=== PATIENT | female | born 1950 | race Caucasian/White ===

== ENCOUNTER 2018-05-24 08:51 | Emergency (ER) | payer MEDICARE, OTHER ==
[~2018-05-24] VITALS: Ht 154.9 cm; Wt 56.2 kg
[2018-05-24] MEDS ORDERED: ONDANSETRON 4 MG/2 ML (SDV) Z0FRAN IVP ONE (09:30)
[2018-05-24] MEDS ORDERED: FAMOTIDINE 20MG/2ML IV (PEPCID) IVP ONE (09:30)
[2018-05-24] MEDS ORDERED: GRAN1PAT (09:32)
[2018-05-24] MEDS ORDERED: MORP15TA (09:32)
[2018-05-24] MEDS ORDERED: POTA10TA14 (09:32)
[2018-05-24] MEDS ORDERED: NALO25TA (09:32)
[2018-05-24] MEDS ORDERED: POTA500T (09:32)
[2018-05-24] MEDS ORDERED: AMLO5TAB9 (09:32)
[2018-05-24] MEDS ORDERED: PANT40TA3 (09:32)
[2018-05-24] MEDS ORDERED: GBPN600T (09:32)
[2018-05-24] MEDS ORDERED: MORP60TA52 (09:32)
[2018-05-24] MEDS ORDERED: ROSUVASTATIN (09:32)
[2018-05-24] MEDS ORDERED: LOSA100T57 (09:32)
[2018-05-24] MEDS ORDERED: ACYC400T (09:32)
[2018-05-24] MEDS ORDERED: morphine PF (DURAMORPH) 10 MG/10 ML AMP IV ONE (09:45)
[2018-05-24] MEDS: NS IV 1000 ML 1,000 ML IV SCH ×2 (09:50→10:38)
[2018-05-24] MEDS ORDERED: morphine INJ 10 MG/ML 1ML (SYR OR VIAL) ONE (09:54)
[2018-05-24] MEDS ORDERED: morphine INJ 10 MG/ML 1ML (SYR OR VIAL) IVP STA ×2 (09:58→11:11)
[2018-05-24 10:34] LABS: EOSINOPHILS % (AUTO) 3 % (0-10); HEMATOCRIT 38 % (35-52); HEMOGLOBIN 12.8 G/DL (11.5-16.0); LYMPHOCYTES % (AUTO) 11 % (12-44); MEAN CORPUSCULAR HEMOGLOBIN 35 PG (25-34); MEAN CORPUSCULAR HGB CONC 34 G/DL (32-36); MEAN CORPUSCULAR VOLUME 103 FL (80-99); MEAN PLATELET VOLUME 10.1 FL (7.4-10.4); MONOCYTES % (AUTO) 10 % (0-12); NEUTROPHILS % (AUTO) 75 % (42-75); PLATELET COUNT 111 10^3/uL (130-400); WHITE BLOOD COUNT 5.1 10^3/uL (4.3-11.0)
[2018-05-24 10:35] LABS: BASOPHILS % (AUTO) 0 % (0-10); EOSINOPHILS # (AUTO) 0.1 10^3/uL (0.0-0.3); LYMPHOCYTES # (AUTO) 0.6 X 10^3 (1.0-4.0); MONOCYTES # (AUTO) 0.5 X 10^3 (0.0-1.0); NEUTROPHILS # (AUTO) 3.8 X 10^3 (1.8-7.8)
[2018-05-24 10:36] LABS: ALBUMIN 4.4 GM/DL (3.2-4.5); BILIRUBIN,TOTAL 0.4 MG/DL (0.1-1.0); CALCIUM 9.3 MG/DL (8.5-10.1); CREATININE SERUM 1.81 MG/DL (0.60-1.30); POTASSIUM 4.1 MMOL/L (3.6-5.0); TOTAL PROTEIN 6.4 GM/DL (6.4-8.2)
[2018-05-24 11:19] LABS: CLARITY,URINE CLEAR; COLOR,URINE YELLOW
[2018-05-24 11:20] LABS: BACTERIA,URINE NEGATIVE /HPF; BILIRUBIN,URINE NEGATIVE (NEGATIVE); GLUCOSE, URINE (UA) NEGATIVE (NEGATIVE); KETONES,URINE NEGATIVE (NEGATIVE); LEUKOCYTE ESTERASE ,URINE NEGATIVE (NEGATIVE); NITRITE,URINE NEGATIVE (NEGATIVE); PROTEIN,URINE NEGATIVE (NEGATIVE); SQUAMOUS EPITHELIAL CELL,UR 0-2 /HPF; UROBILINOGEN,URINE 0.2 MG/DL (NORMAL); WBC,URINE RARE /HPF
[2018-05-24] MEDS ORDERED: ONDA4TAB11 PO (12:18)
--- NOTE | 2018-05-24 12:18 | ED Abdominal Pain ---
General Chief Complaint: Abdominal/GI Problems Stated Complaint: N&V; BACK/RT ARM PAIN Source of Information: Patient History of Present Illness Date Seen by Provider: May 24, 2018 Time Seen by Provider: 10:30 Initial Comments Patient is a 67-year-old female who presents with intermittent abdominal pain, nausea, diarrhea for the past several days. Patient is also receiving weekly chemotherapy injections and her abdomen for treating of leukemia. Last treatment was yesterday, states symptoms have worsened. PORTE some fatigue, dizziness and lightheadedness. No chest pain palpitations, shortness of breath. No fever chills or sweats. Patient states she has occasional diarrhea persistent nausea associated with her treatments. She states she has been unable to take her morphine for greater than 12 hours due to vomiting. Timing/Duration: 3-4 Days Severity/Quality: Moderate Radiation: No Radiation Activities at Onset: None Modifying Factors: Improves With Analgesics, Improves With Lying down Allergies and Home Medications Allergies Coded Allergies: Sulfa (Sulfonamide Antibiotics) (Verified Allergy, Unknown, hives, 05/24/18 ) latex (Verified Allergy, Unknown, anaphylaxis, 05/24/18) vancomycin (Verified Allergy, Unknown, hives, 05/24/18) Patient Home Medication List Home Medication List Reviewed: Yes Review of Systems Review of Systems Constitutional: see HPI EENTM: See HPI Respiratory: See HPI Cardiovascular: See HPI Gastrointestinal: See HPI Genitourinary: See HPI Musculoskeletal: see HPI, back pain Psychiatric/Neurological: No Symptoms Reported Past Lhgrfiu-Eitodc-Sxicps Hx Past Med/Social Hx: Reviewed Nursing Past Med/Soc Hx Physical Exam Vital Signs Capillary Refill : Height/Weight/BMI Height: '" Weight: lbs. oz. kg; BMI Method: General Appearance: WD/WN, no apparent distress HEENT: PERRL/EOMI, normal ENT inspection, pharynx normal Neck: full range of motion, supple Respiratory: chest non-tender, lungs clear, normal breath sounds Cardiovascular: regular rate, rhythm, no edema Gastrointestinal: normal bowel sounds, non tender, soft Back: normal inspection Neurologic/Psychiatric: shield cleaner II-XII nml as tested, no motor/sensory deficits, alert, normal mood/affect, oriented x 3 Skin: normal color Focused Exam Sepsis Stage: Ruled Out Lactate Level 05/24/18 10:50: Lactic Acid Level 0.90 Lactic Acid Level Laboratory Tests Test 05/24/18 10:50 Lactic Acid Level 0.90 MMOL/L (0.50-2.00) Progress/Results/Core Measures Results/Orders Lab Results Laboratory Tests Test 05/24/18 09:43 05/24/18 10:35 05/24/18 10:50 Range/Units White Blood Count 5.1 4.3-11.0 10^3/uL Red Blood Count 3.70 L 4.35-5.85 10^6/uL Hemoglobin 12.8 11.5-16.0 G/DL Hematocrit 38 35-52 % Mean Corpuscular Volume 103 H 80-99 FL Mean Corpuscular Hemoglobin 35 H 25-34 PG Mean Corpuscular Hemoglobin Concent 34 32-36 G/DL Red Cell Distribution Width 13.0 10.0-14.5 % Platelet Count 111 L 130-400 10^3/uL Mean Platelet Volume 10.1 7.4-10.4 FL Neutrophils (%) (Auto) 75 42-75 % Lymphocytes (%) (Auto) 11 L 12-44 % Monocytes (%) (Auto) 10 0-12 % Eosinophils (%) (Auto) 3 0-10 % Basophils (%) (Auto) 0 0-10 % Neutrophils # (Auto) 3.8 1.8-7.8 X 10^3 Lymphocytes # (Auto) 0.6 L 1.0-4.0 X 10^3 Monocytes # (Auto) 0.5 0.0-1.0 X 10^3 Eosinophils # (Auto) 0.1 0.0-0.3 10^3/uL Basophils # (Auto) 0.0 0.0-0.1 10^3/uL Sodium Level 138 135-145 MMOL/L Potassium Level 4.1 3.6-5.0 MMOL/L Chloride Level 101 98-107 MMOL/L Carbon Dioxide Level 23 21-32 MMOL/L Anion Gap 14 5-14 MMOL/L Blood Urea Nitrogen 12 7-18 MG/DL Creatinine 1.81 H 0.60-1.30 MG/DL Estimat Glomerular Filtration Rate 28 BUN/Creatinine Ratio 7 Glucose Level 83 70-105 MG/DL Calcium Level 9.3 8.5-10.1 MG/DL Corrected Calcium 9.0 8.5-10.1 MG/DL Total Bilirubin 0.4 0.1-1.0 MG/DL Aspartate Amino Transf (AST/SGOT) 17 5-34 U/L Alanine Aminotransferase (ALT/SGPT) 12 0-55 U/L Alkaline Phosphatase 62 40-136 U/L Troponin T 10 <=10 NG/L Total Protein 6.4 6.4-8.2 GM/DL Albumin 4.4 3.2-4.5 GM/DL Lipase 19 8-78 U/L Urine Color YELLOW Urine Clarity CLEAR Urine pH 6.0 5-9 Urine Specific [place] <=1.005 1.016-1.022 Urine Protein NEGATIVE NEGATIVE Urine Glucose (UA) NEGATIVE NEGATIVE Urine Ketones NEGATIVE NEGATIVE Urine Nitrite NEGATIVE NEGATIVE Urine Bilirubin NEGATIVE NEGATIVE Urine Urobilinogen 0.2 NORMAL MG/DL Urine Leukocyte Esterase NEGATIVE NEGATIVE Urine RBC (Auto) NEGATIVE NEGATIVE Urine RBC NONE /HPF Urine WBC RARE /HPF Urine Squamous Epithelial Cells 0-2 /HPF Urine Crystals NONE /LPF Urine Bacteria NEGATIVE /HPF Urine Casts NONE /LPF Urine Mucus NEGATIVE /LPF Urine Culture Indicated NO Lactic Acid Level 0.90 0.50-2.00 MMOL/L My Orders Orders - ANA MENON DO Cbc With Automated Diff (05/24/18 09:28) Comprehensive Metabolic Panel (05/24/18 09:28) Troponin T (05/24/18 09:28) Ua Culture If Indicated (05/24/18 09:28) Lipase (05/24/18 09:28) Lactic Acid Analyzer (05/24/18 09:28) Blood Culture (05/24/18 09:28) Ns Iv 1000 Ml (Sodium Chloride 0.9%) (05/24/18 09:30) Ondansetron Injection (Zofran Injectio (05/24/18 09:30) Famotidine Injection (Pepcid Injection) (05/24/18 09:30) Morphine Pf Inj (Duramorph Pf Inj) (05/24/18 09:45) Morphine Injection (Morphine Injection (05/24/18 09:54) Morphine Injection (Morphine Injection (05/24/18 09:58) Blood Culture (05/24/18 10:11) Morphine Injection (Morphine Injection (05/24/18 11:11) Medications Given in ED Current Medications Medications Dose Ordered Sig/Eligio Route Start Time Stop Time Status Last Admin Dose Admin Famotidine 20 mg ONCE ONCE IVP 05/24/18 09:30 05/24/18 09:31 DC 05/24/18 09:50 20 MG Ondansetron HCl 4 mg ONCE ONCE IVP 05/24/18 09:30 05/24/18 09:31 DC 05/24/18 09:49 4 MG Departure Communication (Admissions) Follow-up pain, vomiting and diarrhea. Symptoms likely a combination of chemotherapy-related illness and missed pain medication. IV fluids, pain medications given with significant improvement. Lab work reviewed. Patient requesting discharged home. Recommend following up with oncologist as scheduled. Return precautions reviewed. Impression Primary Impression: Nausea and vomiting Additional Impression: Abdominal wall pain Disposition: HOME, SELF-CARE Condition: Improved Departure-Patient Inst. Decision time for Depature: 12:16 Referrals: ANA LUISA BARRAGAN APRN (PCP) Primary Care Physician OSMAN CH MD (Family) Primary Care Physician Patient Instructions: Acute Pain, Adult, Nausea and Vomiting, Adult Add. Discharge Instructions: Please resume home medications, take additional Zofran as needed for nausea. Follow-up with your oncologist later this week if symptoms persist. Return to the ED if new or worsening symptoms All discharge instructions reviewed with patient and/or family. Voiced understanding. Scripts Ondansetron (Ondansetron Odt) 4 Mg Tab.rapdis 4 MG PO Q6H PRN for NAUSEA/VOMITING-1ST LINE, #10 TAB Prov: ANA MENON DO 05/24/18 ANA MENON DO May 24, 2018 12:18
[2018-05-24 12:27] VITALS: BP 104/67
== END 2018-05-24 12:28 | disposition home or self-care (01) ==
LOC: ER FS 08:53
DX: R11.2 Nausea with vomiting, unspecified (principal); R10.9 Unspecified abdominal pain; C95.00 Acute leukemia of unspecified cell type not having achieved remission; Z92.21 Personal history of antineoplastic chemotherapy; Z88.2 Allergy status to sulfonamides; Z91.040 Latex allergy status; Z88.1 Allergy status to other antibiotic agents
CPT/HCPCS: 36415; 80053; 81000; 83605; 83690; 84484; 85025; 87040

== ENCOUNTER 2018-07-05 15:51 | Emergency (ER) | payer MEDICARE, OTHER ==
[~2018-07-05] VITALS: Ht 154.9 cm; Wt 57.6 kg
[~2018-07-05 15:51] MED LIST: ACYC400T; AMLO5TAB9; GBPN600T; GRAN1PAT; LOSA100T57; MORP15TA; MORP60TA52; NALO25TA; ONDA4TAB11 PO; PANT40TA3; POTA10TA14; POTA500T; ROSUVASTATIN
[2018-07-05] MEDS ORDERED: ONDANSETRON 4 MG (ZOFRAN) ORAL DISSOLVE TAB PO STA (16:43)
--- NOTE | 2018-07-05 16:45 | ED GI ---
General Chief Complaint: Abdominal/GI Problems Stated Complaint: UTI,VOMITING Nursing Triage Note: Has had nausea/vomiting since Wednesday and was recently put on keflex for a UTI. Has been vomiting today and unable to keep medicine down today. Sepsis Screen: No Definite Risk Source of Information: Patient, RN Notes Reviewed Exam Limitations: No Limitations History of Present Illness Date Seen by Provider: July 05, 2018 Time Seen by Provider: 16:42 Allergies and Home Medications Allergies Coded Allergies: Sulfa (Sulfonamide Antibiotics) (Verified Allergy, Unknown, hives, 05/24/18) latex (Verified Allergy, Unknown, anaphylaxis, 05/24/18) vancomycin (Verified Allergy, Unknown, hives, 05/24/18) Home Medications Ondansetron 4 Mg Tab.rapdis, 4 MG PO Q6H PRN for NAUSEA/VOMITING-1ST LINE Prescribed by: ANA MENON on 05/24/18 1218 Promethazine HCl 25 Mg Tablet, 25 MG PO Q6H PRN for NAUSEA/VOMITING Prescribed by: RENAN LOVETT on 07/05/18 1833 Past Tniounh-Mxwrhp-Whxdqw Hx Patient Social History Alcohol Use: Denies Use Recreational Drug Use: No Smoking Status: Never a Smoker 2nd Hand Smoke Exposure: No Recent Foreign Travel: No Contact w/Someone Who Travel: No Recent Infectious Disease Expo: No Recent Hopitalizations: No Physical Abuse: No Sexual Abuse: No Mistreated: No Fear: No Seasonal Allergies Seasonal Allergies: No Past Medical History Surgeries: Yes (colon resection; stem cell transplant) Appendectomy, Bowel Surgery, Gallbladder, Hysterectomy Cardiac: Yes Hypertension Neurological: No Genitourinary: Yes Bladder Infection Gastrointestinal: No Musculoskeletal: No Endocrine: No HEENT: No Cancer: Yes (blood cancer; light chain proteins) Psychosocial: No Integumentary: No Physical Exam Vital Signs Vital Signs - First Documented 07/05/18 16:08 Temp 98.1 Pulse 56 Resp 22 B/P (MAP) 116/56 (76) Pulse Ox 100 Capillary Refill : Less Than 3 Seconds Height/Weight/BMI Height: 5'1.00" Weight: 127lbs. oz. 57.170693aa; BMI Method:Stated Progress/Results/Core Measures Results/Orders Lab Results Laboratory Tests Test 07/05/18 17:12 07/05/18 17:38 Range/Units Urine Color YELLOW Urine Clarity CLEAR Urine pH 6.5 5-9 Urine Specific [place] 1.020 1.016-1.022 Urine Protein 1+ H NEGATIVE Urine Glucose (UA) NEGATIVE NEGATIVE Urine Ketones NEGATIVE NEGATIVE Urine Nitrite NEGATIVE NEGATIVE Urine Bilirubin NEGATIVE NEGATIVE Urine Urobilinogen 0.2 NORMAL MG/DL Urine Leukocyte Esterase TRACE H NEGATIVE Urine RBC (Auto) TRACE H NEGATIVE Urine RBC NONE /HPF Urine WBC 0-2 /HPF Urine Squamous Epithelial Cells 0-2 /HPF Urine Crystals NONE /LPF Urine Bacteria TRACE /HPF Urine Casts NONE /LPF Urine Mucus SMALL H /LPF Urine Other N /HPF Urine Culture Indicated NO White Blood Count 5.1 4.3-11.0 10^3/uL Red Blood Count 3.46 L 4.35-5.85 10^6/uL Hemoglobin 11.9 11.5-16.0 G/DL Hematocrit 36 35-52 % Mean Corpuscular Volume 103 H 80-99 FL Mean Corpuscular Hemoglobin 34 25-34 PG Mean Corpuscular Hemoglobin Concent 33 32-36 G/DL Red Cell Distribution Width 12.8 10.0-14.5 % Platelet Count 132 130-400 10^3/uL Mean Platelet Volume 9.5 7.4-10.4 FL Neutrophils (%) (Auto) 76 H 42-75 % Lymphocytes (%) (Auto) 13 12-44 % Monocytes (%) (Auto) 10 0-12 % Eosinophils (%) (Auto) 1 0-10 % Basophils (%) (Auto) 0 0-10 % Neutrophils # (Auto) 3.9 1.8-7.8 X 10^3 Lymphocytes # (Auto) 0.7 L 1.0-4.0 X 10^3 Monocytes # (Auto) 0.5 0.0-1.0 X 10^3 Eosinophils # (Auto) 0.0 0.0-0.3 10^3/uL Basophils # (Auto) 0.0 0.0-0.1 10^3/uL Sodium Level 140 135-145 MMOL/L Potassium Level 4.1 3.6-5.0 MMOL/L Chloride Level 103 98-107 MMOL/L Carbon Dioxide Level 24 21-32 MMOL/L Anion Gap 13 5-14 MMOL/L Blood Urea Nitrogen 16 7-18 MG/DL Creatinine 1.78 H 0.60-1.30 MG/DL Estimat Glomerular Filtration Rate 29 BUN/Creatinine Ratio 9 Glucose Level 113 H 70-105 MG/DL Calcium Level 9.8 8.5-10.1 MG/DL Corrected Calcium 8.5-10.1 MG/DL Total Bilirubin 0.7 0.1-1.0 MG/DL Aspartate Amino Transf (AST/SGOT) 20 5-34 U/L Alanine Aminotransferase (ALT/SGPT) 14 0-55 U/L Alkaline Phosphatase 59 40-136 U/L Total Protein 6.8 6.4-8.2 GM/DL Albumin 4.6 H 3.2-4.5 GM/DL Lipase 22 8-78 U/L My Orders Orders - RENAN LOVETT DO Cbc With Automated Diff (07/05/18 16:43) Comprehensive Metabolic Panel (07/05/18 16:43) Lipase (07/05/18 16:43) Ua Culture If Indicated (07/05/18 16:43) Promethazine Injection (Phenergan Injec (07/05/18 17:45) Lactated Ringers (Lr 1000 Ml Iv Solution (07/05/18 18:30) Medications Given in ED Current Medications Medications Dose Ordered Sig/Eligio Route Start Time Stop Time Status Last Admin Dose Admin Promethazine HCl 25 mg ONCE ONCE IVP 07/05/18 17:45 07/05/18 17:46 DC 07/05/18 18:06 25 MG Vital Signs/I&O 07/05/18 16:08 Temp 98.1 Pulse 56 Resp 22 B/P (MAP) 116/56 (76) Pulse Ox 100 Blood Pressure Mean: 76 Departure Impression Primary Impression: Nausea and vomiting Disposition: 01 HOME, SELF-CARE Condition: Improved Departure-Patient Inst. Decision time for Depature: 18:31 Referrals: ANA LUISA BARRAGAN APRN (PCP) Primary Care Physician OSMAN CH MD (Family) Primary Care Physician Patient Instructions: Nausea and Vomiting, Adult Scripts Promethazine HCl (Promethazine Tablet) 25 Mg Tablet 25 MG PO Q6H PRN for NAUSEA/VOMITING, #20 TAB 1 Refill Prov: RENAN LOVETT DO 07/05/18 RENAN LOVETT DO July 05, 2018 16:45
--- OUTSIDE RECORDS SUMMARY | 2018-07-05 17:07 | XMS REPORT | Continuity of Care Document ---
Author Organization Unknown Address Unknown Allergies Active Description Code Type Severity Reaction Onset Reported/Identified Relationship to Patient Clinical Status Yes latex [id number] Drug Allergy Unknown anaphylaxis 05/24/2018 Yes Sulfa (Sulfonamide Antibiotics) [id number] Drug Allergy Unknown hives 05/24/2018 Yes vancomycin [id number] Drug Allergy Unknown hives 05/24/2018 Medications There is no data. Problems Date Dx Coded Attending Type Code Diagnosis Diagnosed By 05/24/2018 ANA MENON DO, Ot C95.00 ACUTE LEUKEMIA OF UNSP CELL TYPE NOT ACH 05/24/2018 ANA MENON DO Ot R10.9 UNSPECIFIED ABDOMINAL PAIN 05/24/2018 ANA MENON DO Ot R11.2 NAUSEA WITH VOMITING, UNSPECIFIED 05/24/2018 ANA MENON DO Ot Z88.1 ALLERGY STATUS TO OTHER ANTIBIOTIC AGENT 05/24/2018 ANA MENON DO Ot Z88.2 ALLERGY STATUS TO SULFONAMIDES STATUS 05/24/2018 ANA MENON DO Ot Z91.040 LATEX ALLERGY STATUS 05/24/2018 ANA MENON DO Ot Z92.21 PERSONAL HISTORY OF ANTINEOPLASTIC CHEMO 05/26/2018 ANA MENON DO Ot C95.00 ACUTE LEUKEMIA OF UNSP CELL TYPE NOT ACH 05/26/2018 ANA MENON DO Ot R10.9 UNSPECIFIED ABDOMINAL PAIN 05/26/2018 ANA MENON DO Ot R11.2 NAUSEA WITH VOMITING, UNSPECIFIED 05/26/2018 ANA MENON DO Ot Z88.1 ALLERGY STATUS TO OTHER ANTIBIOTIC AGENT 05/26/2018 ANA MENON DO Ot Z88.2 ALLERGY STATUS TO SULFONAMIDES STATUS 05/26/2018 ANA MENON DO Ot Z91.040 LATEX ALLERGY STATUS 05/26/2018 ANA MENON DO Ot Z92.21 PERSONAL HISTORY OF ANTINEOPLASTIC CHEMO 05/26/2018 ANA MENON DO Ot C95.00 ACUTE LEUKEMIA OF UNSP CELL TYPE NOT ACH 05/26/2018 ANA MENON DO Ot R10.9 UNSPECIFIED ABDOMINAL PAIN 05/26/2018 ANA MENON DO Ot R11.2 NAUSEA WITH VOMITING, UNSPECIFIED 05/26/2018 ANA MENON DO Ot Z88.1 ALLERGY STATUS TO OTHER ANTIBIOTIC AGENT 05/26/2018 ANA MENON DO Ot Z88.2 ALLERGY STATUS TO SULFONAMIDES STATUS 05/26/2018 ANA MENON DO Ot Z91.040 LATEX ALLERGY STATUS 05/26/2018 ANA MNEON DO Ot Z92.21 PERSONAL HISTORY OF ANTINEOPLASTIC CHEMO Procedures There is no data. Results Test Result Range Complete blood count (CBC) with automated white blood cell (WBC) differential - 05/24/18 09:43 Blood leukocytes automated count (number/volume) 5.1 10*3/uL 4.3-11.0 Blood erythrocytes automated count (number/volume) 3.70 10*6/uL 4.35-5.85 Venous blood hemoglobin measurement (mass/volume) 12.8 g/dL 11.5-16.0 Blood hematocrit (volume fraction) 38 % 35-52 Automated erythrocyte mean corpuscular volume 103 [foz_us] 80-99 Automated erythrocyte mean corpuscular hemoglobin (mass per erythrocyte) 35 pg 25-34 Automated erythrocyte mean corpuscular hemoglobin concentration measurement (mass/volume) 34 g/dL 32-36 Automated erythrocyte distribution width ratio 13.0 % 10.0- 14.5 Automated blood platelet count (count/volume) 111 10*3/uL 130-400 Automated blood platelet mean volume measurement 10.1 [foz_us] 7.4-10.4 Automated blood neutrophils/100 leukocytes 75 % 42-75 Automated blood lymphocytes/100 leukocytes 11 % 12-44 Blood monocytes/100 leukocytes 10 % 0-12 Automated blood eosinophils/100 leukocytes 3 % 0-10 Automated blood basophils/100 leukocytes 0 % 0-10 Blood neutrophils automated count (number/volume) 3.8 10*3 1.8-7.8 Blood lymphocytes automated count (number/volume) 0.6 10*3 1.0-4.0 Blood monocytes automated count (number/volume) 0.5 10*3 0.0- 1.0 Automated eosinophil count 0.1 10*3/uL 0.0-0.3 Automated blood basophil count (count/volume) 0.0 10*3/uL 0.0-0.1 Comprehensive metabolic panel - 05/24/18 09:43 Serum or plasma sodium measurement (moles/volume) 138 mmol/L 135-145 Serum or plasma potassium measurement (moles/volume) 4.1 mmol/L 3.6-5.0 Serum or plasma chloride measurement (moles/volume) 101 mmol/L 98-107 Carbon dioxide 23 mmol/L 21-32 Serum or plasma anion gap determination (moles/volume) 14 mmol/L 5-14 Serum or plasma urea nitrogen measurement (mass/volume) 12 mg/dL 7-18 Serum or plasma creatinine measurement (mass/volume) 1.81 mg/dL 0.60-1.30 Serum or plasma urea nitrogen/creatinine mass ratio 7 NRG Serum or plasma creatinine measurement with calculation of estimated glomerular filtration rate 28 NRG Serum or plasma glucose measurement (mass/volume) 83 mg/dL 70-105 Serum or plasma calcium measurement (mass/volume) 9.3 mg/dL 8.5-10.1 Serum or plasma total bilirubin measurement (mass/volume) 0.4 mg/dL 0.1-1.0 Serum or plasma alkaline phosphatase measurement (enzymatic activity/volume) 62 U/L 40-136 Serum or plasma aspartate aminotransferase measurement (enzymatic activity/volume) 17 U/L 5-34 Serum or plasma alanine aminotransferase measurement (enzymatic activity/volume) 12 U/L 0-55 Serum or plasma protein measurement (mass/volume) 6.4 g/dL 6.4-8.2 Serum or plasma albumin measurement (mass/volume) 4.4 g/dL 3.2-4.5 CALCIUM CORRECTED 9.0 mg/dL 8.5-10.1 TROPONIN T - 05/24/18 09:43 TROPONIN T 10 % <=10 Lipase - 05/24/18 09:43 Lipase 19 U/L 8-78 Bacterial blood culture - 05/24/18 09:43 Bacterial blood culture NG NRG Complete urinalysis with reflex to culture - 05/24/18 10:35 Urine color determination YELLOW NRG Urine clarity determination CLEAR NRG Urine pH measurement by test strip 6.0 5-9 Specific gravity of urine by test strip <= 1.016-1.022 Urine protein assay by test strip, semi-quantitative NEGATIVE NEGATIVE Urine glucose detection by automated test strip NEGATIVE NEGATIVE Erythrocytes detection in urine sediment by light microscopy NEGATIVE NEGATIVE Urine ketones detection by automated test strip NEGATIVE NEGATIVE Urine nitrite detection by test strip NEGATIVE NEGATIVE Urine total bilirubin detection by test strip NEGATIVE NEGATIVE Urine urobilinogen measurement by automated test strip (mass/volume) 0.2 mg/dL NORMAL Urine leukocyte esterase detection by dipstick NEGATIVE NEGATIVE Automated urine sediment erythrocyte count by microscopy (number/high power field) NONE NRG Automated urine sediment leukocyte count by microscopy (number/high power field) RARE NRG Bacteria detection in urine sediment by light microscopy NEGATIVE NRG Squamous epithelial cells detection in urine sediment by light microscopy 0-2 NRG Crystals detection in urine sediment by light microscopy NONE NRG Casts detection in urine sediment by light microscopy NONE NRG Mucus detection in urine sediment by light microscopy NEGATIVE NRG Complete urinalysis with reflex to culture NO NRG Blood lactic acid measurement (moles/volume) - 05/24/18 10:50 Blood lactic acid measurement (moles/volume) 0.90 mmol/L 0.50- 2.00 Bacterial blood culture - 05/24/18 10:50 Bacterial blood culture NG NRG Encounters ACCT No. Visit Date/Time Discharge Status Pt. Type Provider Facility Loc./Unit Complaint [id number] 05/24/2018 08:53:00 05/24/2018 12:28:00 DIS Emergency ANA MENON DO [facility] ER FS N V; BACK/RT ARM PAIN
[2018-07-05 17:25] LABS: CLARITY,URINE CLEAR; COLOR,URINE YELLOW; GLUCOSE, URINE (UA) NEGATIVE (NEGATIVE); PH,URINE 6.5 (5-9); PROTEIN,URINE 1+ (NEGATIVE)
[2018-07-05 17:26] LABS: BACTERIA,URINE TRACE /HPF; BILIRUBIN,URINE NEGATIVE (NEGATIVE); KETONES,URINE NEGATIVE (NEGATIVE); LEUKOCYTE ESTERASE ,URINE TRACE (NEGATIVE); NITRITE,URINE NEGATIVE (NEGATIVE); SQUAMOUS EPITHELIAL CELL,UR 0-2 /HPF; UROBILINOGEN,URINE 0.2 MG/DL (NORMAL); WBC,URINE 0-2 /HPF
[2018-07-05 17:27] LABS: URINE OTHER N /HPF
[2018-07-05] MEDS ORDERED: PROMETHAZINE INJ 25 MG/ML (PHENERGAN) AMP IVP ONE (17:45)
[2018-07-05 17:46] LABS: BASOPHILS % (AUTO) 0 % (0-10); EOSINOPHILS % (AUTO) 1 % (0-10); HEMATOCRIT 36 % (35-52); HEMOGLOBIN 11.9 G/DL (11.5-16.0); LYMPHOCYTES # (AUTO) 0.7 X 10^3 (1.0-4.0); LYMPHOCYTES % (AUTO) 13 % (12-44); MEAN CORPUSCULAR HEMOGLOBIN 34 PG (25-34); MEAN CORPUSCULAR HGB CONC 33 G/DL (32-36); MEAN CORPUSCULAR VOLUME 103 FL (80-99); MEAN PLATELET VOLUME 9.5 FL (7.4-10.4); MONOCYTES # (AUTO) 0.5 X 10^3 (0.0-1.0); MONOCYTES % (AUTO) 10 % (0-12); NEUTROPHILS # (AUTO) 3.9 X 10^3 (1.8-7.8); NEUTROPHILS % (AUTO) 76 % (42-75); PLATELET COUNT 132 10^3/uL (130-400); RED CELL DISTRIBUTION WIDTH 12.8 % (10.0-14.5); WHITE BLOOD COUNT 5.1 10^3/uL (4.3-11.0)
[2018-07-05 18:29] LABS: CARBON DIOXIDE 24 MMOL/L (21-32); CHLORIDE 103 MMOL/L (98-107); POTASSIUM 4.1 MMOL/L (3.6-5.0); SODIUM 140 MMOL/L (135-145)
[2018-07-05 18:30] LABS: ALANINE AMINOTRANSFERASE 14 U/L (0-55); ALBUMIN 4.6 GM/DL (3.2-4.5); ALKALINE PHOSPHATASE 59 U/L (40-136); BILIRUBIN,TOTAL 0.7 MG/DL (0.1-1.0); BUN/CREATININE RATIO 9; CALCIUM 9.8 MG/DL (8.5-10.1); CREATININE SERUM 1.78 MG/DL (0.60-1.30); GFR ESTIMATED 29; GLUCOSE 113 MG/DL (70-105); LIPASE 22 U/L (8-78); TOTAL PROTEIN 6.8 GM/DL (6.4-8.2)
[2018-07-05] MEDS ORDERED: LACTATED RINGERS 1,000 ML IV SCH (18:30)
[2018-07-05] MEDS ORDERED: PROM25TA14 PO (18:33)
[2018-07-05 22:52] VITALS: BP 116/56
== END 2018-07-05 22:16 | disposition home or self-care (01) ==
LOC: EDUNIT# 15:51 → ER FS 15:53
DX: R11.2 Nausea with vomiting, unspecified (principal); I10 Essential (primary) hypertension; Z86.2 Personal history of diseases of the blood and blood-forming organs and certain disorders involving the immune mechanism; Z87.448 Personal history of other diseases of urinary system; Z88.2 Allergy status to sulfonamides; Z87.440 Personal history of urinary (tract) infections; Z91.040 Latex allergy status; Z88.1 Allergy status to other antibiotic agents; Z90.710 Acquired absence of both cervix and uterus; Z90.49 Acquired absence of other specified parts of digestive tract; Z94.84 Stem cells transplant status
CPT/HCPCS: 36415; 80053; 81000; 83690; 85025; 96374

== ENCOUNTER → 2018-10-17 | Outpatient (CLI) | payer MEDICARE, OTHER ==
[~2018-10-17] MED LIST changes: +IOHEXOL 240 MGI/ML 20 ML (OMNIPAQUE) VIAL IV ONE; +PROM25TA14 PO
--- NOTE | 2018-10-17 18:26 | Diagnostic Imaging Report ---
INDICATION: Right chest wall port placement several days earlier. Patient complains of a new-onset lump developing in lower right neck. Patient present for port check using fluoroscopic guidance. FINDINGS: The patient was brought to the fluoroscopic suite, placed on the table in the supine position. The right chest wall port was accessed by radiology nurse. The area of lump reported by the patient corresponds to the low right neck in the right supraclavicular region. This is well above the right chest wall port. The port was injected with Omnipaque-300 contrast under fluoroscopic observation. There is normal opacification of the port with free flow of contrast from the catheter tip. The tip is located within the right atrium. No abnormal contrast accumulation is seen. There is no kinking or interruption of the port. 36 seconds of fluoroscopic time was utilized. IMPRESSION: Normal right chest wall port check. No complicating features are seen. If further evaluation of the right neck lump is needed, ultrasound or CT with contrast could be performed for better characterization. Dictated by: Dictated on workstation # [id number]
== END ==
LOC: RAD 15:14
PROVIDERS: ATTEND Internal Medicine Hematology & Oncology
DX: Z45.2 Encounter for adjustment and management of vascular access device (principal)
CPT/HCPCS: 36598

== ENCOUNTER → 2018-10-20 | Outpatient (CLI) | payer MEDICARE, OTHER ==
[~2018-10-20] MED LIST changes: -IOHEXOL 240 MGI/ML 20 ML (OMNIPAQUE) VIAL IV ONE
--- NOTE | 2018-10-20 16:54 | Diagnostic Imaging Report ---
INDICATION: Lump in the lower right neck. Patient reported to have had outside CT demonstrating thrombus within a vessel in the lower right neck. Sonographic interrogation of the area of lump was performed. The right internal jugular vein appears to be patent. In addition, the subclavian vein is patent. Portions of the brachiocephalic vein on the right side are patent. There is a thrombus filled venous structure in the low right neck, lateral to the internal jugular vein and slightly cephalad to the subclavian vein. This anatomically confirms the region of the external jugular vein and is suspicious for a thrombus filled external jugular vein. No fluid collections are seen. No other abnormalities are identified. IMPRESSION: Findings most suggestive of a thrombus filled external jugular vein on the right, corresponding to the palpable abnormality. No thrombus is identified in the right internal jugular vein or the right subclavian vein. Please correlate these findings with the outside CT. Dictated by: Dictated on workstation # [id number]
== END ==
LOC: RAD 13:10
PROVIDERS: ATTEND Internal Medicine Hematology & Oncology
DX: I74.8 Embolism and thrombosis of other arteries (principal)

== ENCOUNTER 2018-10-27 11:32 | Emergency (ER) | payer MEDICARE, OTHER ==
[~2018-10-27] VITALS: Ht 156.5 cm; Wt 55.5 kg
[2018-10-27] MEDS ORDERED: morphine INJ 10 MG/ML 1ML (SYR OR VIAL) IVP STA (11:47)
--- NOTE | 2018-10-27 11:57 | ED General ---
General Chief Complaint: Abdominal/GI Problems Stated Complaint: VOMITING; DIARRHEA History of Present Illness Date Seen by Provider: Oct 27, 2018 Time Seen by Provider: 11:54 Initial Comments Patient presents emergency department for evaluation of bowel pain nausea vomiting and diarrhea that has been going on for 2 days. She says the abdominal pain is diffuse crampy sometimes burning and sharp worse in the lower quadrants particularly left lower quadrant but she feels pain everywhere in her abdomen. Emesis is nonbloody nonbilious and she says she has nothing left in her intestines and now is just phlegm. Diarrhea is watery but nonbloody. She denies any recent antibiotic use but she does have multiple myeloma and is on weekly Velcade injections. She has had a cholecystectomy appendectomy and hysterectomy. She is in no obvious distress with normal vital signs. Allergies and Home Medications Allergies Coded Allergies: Sulfa (Sulfonamide Antibiotics) (Verified Allergy, Unknown, hives, 05/24/18) latex (Verified Allergy, Unknown, anaphylaxis, 05/24/18) vancomycin (Verified Allergy, Unknown, hives, 05/24/18) Home Medications Ondansetron 4 Mg Tab.rapdis, 4 MG PO Q6H PRN for NAUSEA/VOMITING-1ST LINE Prescribed by: ANA MENON on 05/24/18 1218 Promethazine HCl 25 Mg Tablet, 25 MG PO Q6H PRN for NAUSEA/VOMITING Prescribed by: RENAN LOVETT on 07/05/18 1833 Patient Home Medication List Home Medication List Reviewed: Yes Review of Systems Review of Systems Constitutional: no symptoms reported EENTM: no symptoms reported Respiratory: no symptoms reported Cardiovascular: no symptoms reported Gastrointestinal: abdominal pain, diarrhea, nausea, vomiting Genitourinary: no symptoms reported Musculoskeletal: no symptoms reported Skin: no symptoms reported Psychiatric/Neurological: No Symptoms Reported All Other Systems Reviewed Negative Unless Noted: Yes Past Jcbskyx-Thwqom-Mqazkx Hx Patient Social History 2nd Hand Smoke Exposure: No Recent Hopitalizations: No Seasonal Allergies Seasonal Allergies: No Past Medical History Surgeries: Yes (colon resection; stem cell transplant) Appendectomy, Bowel Surgery, Gallbladder, Hysterectomy Cardiac: Yes Hypertension Neurological: No Genitourinary: Yes Bladder Infection Gastrointestinal: No Musculoskeletal: No Endocrine: No HEENT: No Cancer: Yes (blood cancer; light chain proteins) Psychosocial: No Integumentary: No Physical Exam Vital Signs Vital Signs - First Documented 10/27/18 11:38 Temp 36.8 Pulse 75 Resp 22 B/P (MAP) 113/77 (89) Pulse Ox 99 O2 Delivery Room Air Capillary Refill : Height, Weight, BMI Height: 5'1.00" Weight: 127lbs. oz. 57.058266ab; BMI Method:Stated General Appearance: No Apparent Distress, WD/WN HEENT: PERRL/EOMI Neck: Supple Respiratory: Lungs Clear, No Respiratory Distress Cardiovascular: Regular Rate, Rhythm Gastrointestinal: Soft, Tenderness (diffuse ttp with no rebound or guarding) Back: Normal Inspection Extremity: Normal Capillary Refill Neurologic/Psychiatric: Alert, Oriented x3 Skin: Warm/Dry Progress/Results/Core Measures Suspected Sepsis SIRS Temperature: Pulse: Respiratory Rate: Laboratory Tests 10/27/18 11:50: White Blood Count 4.3 Blood Pressure / Mean: Laboratory Tests 10/27/18 11:50: Creatinine 1.95H, Platelet Count 119L, Total Bilirubin 0.6 Results/Orders Lab Results Laboratory Tests Test 10/27/18 11:50 10/27/18 12:08 Range/Units White Blood Count 4.3 4.3-11.0 10^3/uL Red Blood Count 3.74 L 4.35-5.85 10^6/uL Hemoglobin 12.9 11.5-16.0 G/DL Hematocrit 38 35-52 % Mean Corpuscular Volume 102 H 80-99 FL Mean Corpuscular Hemoglobin 34 25-34 PG Mean Corpuscular Hemoglobin Concent 34 32-36 G/DL Red Cell Distribution Width 12.7 10.0-14.5 % Platelet Count 119 L 130-400 10^3/uL Mean Platelet Volume 10.0 7.4-10.4 FL Neutrophils (%) (Auto) 59 42-75 % Lymphocytes (%) (Auto) 21 12-44 % Monocytes (%) (Auto) 19 H 0-12 % Eosinophils (%) (Auto) 1 0-10 % Basophils (%) (Auto) 0 0-10 % Neutrophils # (Auto) 2.6 1.8-7.8 X 10^3 Lymphocytes # (Auto) 0.9 L 1.0-4.0 X 10^3 Monocytes # (Auto) 0.8 0.0-1.0 X 10^3 Eosinophils # (Auto) 0.0 0.0-0.3 10^3/uL Basophils # (Auto) 0.0 0.0-0.1 10^3/uL Neutrophils % (Manual) 45 % Lymphocytes % (Manual) 26 % Monocytes % (Manual) 16 % Band Neutrophils 13 % Sodium Level 136 135-145 MMOL/L Potassium Level 4.1 3.6-5.0 MMOL/L Chloride Level 101 98-107 MMOL/L Carbon Dioxide Level 20 L 21-32 MMOL/L Anion Gap 15 H 5-14 MMOL/L Blood Urea Nitrogen 20 H 7-18 MG/DL Creatinine 1.95 H 0.60-1.30 MG/DL Estimat Glomerular Filtration Rate 26 BUN/Creatinine Ratio 10 Glucose Level 108 H 70-105 MG/DL Calcium Level 9.4 8.5-10.1 MG/DL Corrected Calcium 9.2 8.5-10.1 MG/DL Magnesium Level 1.9 1.6-2.4 MG/DL Total Bilirubin 0.6 0.1-1.0 MG/DL Aspartate Amino Transf (AST/SGOT) 13 5-34 U/L Alanine Aminotransferase (ALT/SGPT) 9 0-55 U/L Alkaline Phosphatase 64 40-136 U/L Total Protein 6.6 6.4-8.2 GM/DL Albumin 4.2 3.2-4.5 GM/DL Lipase 19 8-78 U/L Urine Color YELLOW Urine Clarity SLT CLOUDY Urine pH 6.0 5-9 Urine Specific Robertson 1.025 H 1.016-1.022 Urine Protein 1+ H NEGATIVE Urine Glucose (UA) NEGATIVE NEGATIVE Urine Ketones NEGATIVE NEGATIVE Urine Nitrite NEGATIVE NEGATIVE Urine Bilirubin NEGATIVE NEGATIVE Urine Urobilinogen 0.2 NORMAL MG/DL Urine Leukocyte Esterase 1+ H NEGATIVE Urine RBC (Auto) 1+ H NEGATIVE Urine RBC 0-2 /HPF Urine WBC 5-10 H /HPF Urine Squamous Epithelial Cells 5-10 /HPF Urine Crystals NONE /LPF Urine Bacteria FEW H /HPF Urine Casts NONE /LPF Urine Mucus NONE /LPF Urine Culture Indicated YES My Orders Orders - FIDEL RIBEIRO DO Cbc With Automated Diff (10/27/18 11:47) Comprehensive Metabolic Panel (10/27/18 11:47) Lipase (10/27/18 11:47) Magnesium (10/27/18 11:47) Ua Culture If Indicated (10/27/18 11:47) Ns Iv 1000 Ml (Sodium Chloride 0.9%) (10/27/18 12:00) Promethazine Injection (Phenergan Injec (10/27/18 12:00) Morphine Injection (Morphine Injection (10/27/18 11:47) Dicyclomine Injection (Bentyl Injection) (10/27/18 12:00) Manual Differential (10/27/18 11:50) Urine Culture (10/27/18 12:08) Ct Abdomen/Pelvis Wo (10/27/18 11:47) Ns Iv 1000 Ml (Sodium Chloride 0.9%) (10/27/18 13:00) Morphine Immediate Release Tab (Morphine (10/27/18 13:45) Hydrocodone/Apap 5/325 Tablet (Lortab 5 (10/27/18 13:45) Medications Given in ED Current Medications Medications Dose Ordered Sig/Eligio Route Start Time Stop Time Status Last Admin Dose Admin Acetaminophen/ Hydrocodone Bitart 1 tab ONCE ONCE PO 10/27/18 13:45 10/27/18 13:46 DC 10/27/18 13:48 1 TAB Dicyclomine HCl 20 mg ONCE ONCE IM 10/27/18 12:00 10/27/18 12:01 DC 10/27/18 12:01 20 MG Promethazine HCl 12.5 mg ONCE ONCE IVP 10/27/18 12:00 10/27/18 12:01 DC 10/27/18 11:59 12.5 MG Vital Signs/I&O 10/27/18 11:38 Temp 36.8 Pulse 75 Resp 22 B/P (MAP) 113/77 (89) Pulse Ox 99 O2 Delivery Room Air Capillary Refill : Progress Note : Progress Note Patient with symptoms of abdominal pain nausea vomiting diarrhea likely represent presenting an enteritis I will check labs imaging treat symptoms and reassess. Patient feeling much better after initial treatment. Patient able to tolerate oral Nickerson and fluids by mouth with no difficulty. Given her workup is benign with no signs of surgical pathology or acute electrolyte disturbances I told him he better if he treated her as an outpatient given she is on chemotherapy to see if she can get better at home she is on antinausea patch as well as Zofran as needed for told her she could try Phenergan instead for nausea this works better. I'm going to write an outpatient prescription for stool studies said that she can get checked for C. difficile and other pathogens patient told she needs a follow primary care provider tomorrow and if she starts getting worse she would need to come back to emergency department immediately and she will require admission. Patient aware and agreeable with plan for discharge and verbalized understanding of the need for short-term follow-up and strict ED return precautions discussed including worsening pain fevers vomiting or other general concerns. Departure Impression Primary Impression: Abdominal pain Additional Impressions: Dehydration Nausea and vomiting Diarrhea Disposition: HOME, SELF-CARE Condition: Stable Departure-Patient Inst. Referrals: ANA LUISA BARRAGAN APRN (PCP) Primary Care Physician OSMAN CH MD (Family) Primary Care Physician Patient Instructions: Viral Gastroenteritis, Adult (DC) Scripts Promethazine HCl (Promethazine Tablet) 25 Mg Tablet 25 MG PO Q6H PRN for NAUSEA/VOMITING, #14 TAB Prov: FIDEL RIBEIRO DO 10/27/18 FIDEL RIBEIRO DO Oct 27, 2018 11:57
[2018-10-27] MEDS ORDERED: PROMETHAZINE INJ 25 MG/ML (PHENERGAN) AMP IVP ONE (12:00)
[2018-10-27] MEDS ORDERED: NS IV 1000 ML 1,000 ML IV SCH ×2 (12:00→13:00)
[2018-10-27] MEDS ORDERED: DICYCLOMINE 10 MG/ML (BENTYL) 2 ML AMP IM ONE (12:00)
[2018-10-27 12:02] LABS: HEMATOCRIT 38 % (35-52); HEMOGLOBIN 12.9 G/DL (11.5-16.0); MEAN CORPUSCULAR HEMOGLOBIN 34 PG (25-34); WHITE BLOOD COUNT 4.3 10^3/uL (4.3-11.0)
[2018-10-27 12:03] LABS: BASOPHILS % (AUTO) 0 % (0-10); EOSINOPHILS % (AUTO) 1 % (0-10); LYMPHOCYTES # (AUTO) 0.9 X 10^3 (1.0-4.0); LYMPHOCYTES % (AUTO) 21 % (12-44); MEAN CORPUSCULAR HGB CONC 34 G/DL (32-36); MEAN CORPUSCULAR VOLUME 102 FL (80-99); MONOCYTES # (AUTO) 0.8 X 10^3 (0.0-1.0); MONOCYTES % (AUTO) 19 % (0-12); NEUTROPHILS # (AUTO) 2.6 X 10^3 (1.8-7.8); NEUTROPHILS % (AUTO) 59 % (42-75); PLATELET COUNT 119 10^3/uL (130-400); RED CELL DISTRIBUTION WIDTH 12.7 % (10.0-14.5)
[2018-10-27 12:17] LABS: CLARITY,URINE SLT CLOUDY; COLOR,URINE YELLOW
[2018-10-27 12:18] LABS: BACTERIA,URINE FEW /HPF; BILIRUBIN,URINE NEGATIVE (NEGATIVE); GLUCOSE, URINE (UA) NEGATIVE (NEGATIVE); KETONES,URINE NEGATIVE (NEGATIVE); LEUKOCYTE ESTERASE ,URINE 1+ (NEGATIVE); NITRITE,URINE NEGATIVE (NEGATIVE); PROTEIN,URINE 1+ (NEGATIVE); RBC,URINE 0-2 /HPF; UROBILINOGEN,URINE 0.2 MG/DL (NORMAL)
[2018-10-27 12:22] LABS: BILIRUBIN,TOTAL 0.6 MG/DL (0.1-1.0); CALCIUM 9.4 MG/DL (8.5-10.1); CREATININE SERUM 1.95 MG/DL (0.60-1.30); MAGNESIUM 1.9 MG/DL (1.6-2.4); POTASSIUM 4.1 MMOL/L (3.6-5.0); TOTAL PROTEIN 6.6 GM/DL (6.4-8.2)
[2018-10-27 12:23] LABS: ALBUMIN 4.2 GM/DL (3.2-4.5)
[2018-10-27 12:32] LABS: BAND NEUTROPHILS 13 %; LYMPHOCYTES % (MANUAL) 26 %; MONOCYTES % (MANUAL) 16 %; NEUTROPHILS % (MANUAL) 45 %
--- NOTE | 2018-10-27 12:53 | Diagnostic Imaging Report ---
PROCEDURE: CT abdomen and pelvis without contrast. TECHNIQUE: Multiple contiguous axial images were obtained through the abdomen and pelvis without the use of intravenous contrast. Auto Exposure Controls were utilized during the CT exam to meet ALARA standards for radiation dose reduction. INDICATION: Left lower quadrant abdominal pain with nausea, vomiting and diarrhea for 2 days. Patient has history of multiple myeloma. No prior studies are available for comparison. The lung bases are clear. No discrete liver mass is identified. The gallbladder is surgically absent. No biliary ductal dilatation is identified. The pancreas and spleen are unremarkable. No adrenal mass is detected. There is some asymmetry in renal size, right being smaller. No calculi or hydronephrosis is identified. The aorta is non-aneurysmal. There is moderate fluid-filled distention to the right colon. There are numerous distal small bowel loops which appear to be mild to moderately dilated and fluid-filled in the pelvis as well as in the central abdomen. No focal transition is seen. There appear to be postsurgical changes in the sigmoid colon. There is diverticuli involving the descending colon and portions of the transverse colon but no evidence of acute diverticulitis. There is no free fluid or loculated fluid collection. No free air is seen. Bladder is decompressed. The uterus appears to be surgically absent. No definite abdominal or pelvic lymphadenopathy is seen. No definite osteolytic lesions are seen. Bony structures appear nonacute. Impression: 1. Nonspecific moderate fluid-filled distention of small and large bowel loops, as described, without evidence of focal transition. This may be on the basis of nonspecific enterocolitis. No free air or fluid collection is identified. 2. Diverticulosis. Dictated by: Dictated on workstation # [id number]
[2018-10-27] MEDS ORDERED: HYDROcodone/APAP 5 MG/325 MG (LORTAB) TAB PO ONE (13:45)
[2018-10-27] MEDS ORDERED: morphine IMMEDIATE RELEASE 15 MG TABLET PO SCH (13:45)
[2018-10-27] MEDS ORDERED: PROM25TA14 PO (14:15)
[2018-10-27 14:27] VITALS: BP 138/68
[2018-10-28] MEDS ORDERED: PROM25SU43 RC (17:22)
[2018-10-28] MEDS ORDERED: CFTR1V IJ (18:44)
[2018-10-28] MEDS ORDERED: [UNRECOGNIZED DRUG - CODE] IJ (18:44)
== END 2018-10-27 14:27 | disposition home or self-care (01) ==
LOC: EDUNIT# 11:32 → ER FS 11:33
DX: R10.84 Generalized abdominal pain (principal); E86.0 Dehydration; R11.2 Nausea with vomiting, unspecified; R19.7 Diarrhea, unspecified; I10 Essential (primary) hypertension; Z85.79 Personal history of other malignant neoplasms of lymphoid, hematopoietic and related tissues; Z90.710 Acquired absence of both cervix and uterus; Z90.49 Acquired absence of other specified parts of digestive tract; Z88.2 Allergy status to sulfonamides; Z88.1 Allergy status to other antibiotic agents; Z91.040 Latex allergy status
CPT/HCPCS: 36415; 74176; 80053; 81000; 83690; 83735; 85007; 85027; 87088

== ENCOUNTER 2018-10-28 16:06 | Emergency (ER) | payer MEDICARE, OTHER | END 2018-10-28 19:12 | disposition home or self-care (01) | LOC: ER FS 16:06 ==

== ENCOUNTER 2018-10-29 13:12 | Emergency (ER) | payer MEDICARE, OTHER | END 2018-10-29 14:26 | disposition home or self-care (01) | LOC: ER FS 13:12 ==

== ENCOUNTER 2018-10-30 13:33 | Emergency (ER) | payer MEDICARE, OTHER ==
[~2018-10-30] VITALS: Ht 154 cm; Wt 54.0 kg
[~2018-10-30 13:33] MED LIST changes: +CFTR1V IJ; +PROM25SU43 RC; +[UNRECOGNIZED DRUG - CODE] IJ
[2018-10-30] MEDS ORDERED: cefTRIAXone 1,000 MG/2.86 ml vial (IM ONLY) IM ONE (14:00)
[2018-10-30] MEDS ORDERED: PROMETHAZINE INJ 25 MG/ML (PHENERGAN) AMP IM ONE (14:00)
[2018-10-30] MEDS ORDERED: LIDOCAINE 1% INJ 20 ML 20 ML VIAL INJ ONE (14:00)
--- NOTE | 2018-10-30 14:11 | ED General ---
General Chief Complaint: General Problems/Pain Stated Complaint: UTI FOLLOW UP Nursing Triage Note: Is wanting rocephin shot for her UTI Nursing Sepsis Screen: No Definite Risk History of Present Illness Date Seen by Provider: Oct 30, 2018 Time Seen by Provider: 13:30 Initial Comments Patient is a 68-year-old female with a history of multiple myeloma who is currently undergoing chemotherapy who comes to the ER today for outpatient treatment of a urinary tract infection. The patient was seen at this facility 2 days earlier when she was diagnosed with a UTI. She was recommended to have daily shots of Rocephin outpatient. The reason for the Rocephin and sent the patient was having a lot of poorly controlled nausea and vomiting and felt that she could not swallow pills. Today, she presents to the ER for an injection of Rocephin. She has not had a fever or chills. She continues to have some mild urinary symptoms. She states her current syndrome is typical for prior urinary tract infections although her nausea and vomiting symptoms are more severe. She does not have abdominal pain. No flank pain. Allergies and Home Medications Allergies Coded Allergies: Sulfa (Sulfonamide Antibiotics) (Verified Allergy, Unknown, hives, 05/24/18) latex (Verified Allergy, Unknown, anaphylaxis, 05/24/18) vancomycin (Verified Allergy, Unknown, hives, 05/24/18) Home Medications Ceftriaxone Sodium 1 Gm Vial, 1 GM IJ DAILY Prescribed by: ERIKA SANABRIA on 10/28/18 184 Lidocaine HCl in 0.9 % NaCl/Pf 100 Mg/10 Ml Syringe, 20 MG IJ DAILY Use as dilutant for Rocephin. Prescribed by: ERIKA SANABRIA on 10/28/18 184 Ondansetron 4 Mg Tab.rapdis, 4 MG PO Q6H PRN for NAUSEA/VOMITING-1ST LINE Prescribed by: ANA MENON on 05/24/18 1218 Promethazine HCl 25 Mg Tablet, 25 MG PO Q6H PRN for NAUSEA/VOMITING Prescribed by: RENAN LOVETT on 07/05/18 1833 Promethazine HCl 25 Mg Tablet, 25 MG PO Q6H PRN for NAUSEA/VOMITING Prescribed by: FIDEL RIBEIRO on 10/27/18 1415 Promethazine HCl 25 Mg Supp.rect, 25 MG RC Q8H PRN for NAUSEA/VOMITING-2ND LINE Prescribed by: GONZALES YBARRA on 10/28/18 1722 Patient Home Medication List Home Medication List Reviewed: Yes Review of Systems Review of Systems Constitutional: malaise EENTM: no symptoms reported Respiratory: no symptoms reported Cardiovascular: no symptoms reported Gastrointestinal: see HPI Musculoskeletal: no symptoms reported All Other Systems Reviewed Negative Unless Noted: Yes Past Rlxlaqo-Sniise-Yturdn Hx Patient Social History Alcohol Use: Denies Use Recreational Drug Use: No Smoking Status: Never a Smoker 2nd Hand Smoke Exposure: No Recent Foreign Travel: No Contact w/Someone Who Travel: No Recent Infectious Disease Expo: No Recent Hopitalizations: No Physical Abuse: No Sexual Abuse: No Mistreated: No Fear: No Seasonal Allergies Seasonal Allergies: No Past Medical History Surgeries: Yes (colon resection; stem cell transplant) Appendectomy, Bowel Surgery, Gallbladder, Hysterectomy Cardiac: Yes Hypertension Neurological: No Genitourinary: Yes Bladder Infection Gastrointestinal: No Musculoskeletal: No Endocrine: No HEENT: No Cancer: Yes (blood cancer; light chain proteins) Psychosocial: No Integumentary: No Physical Exam Vital Signs Vital Signs - First Documented 10/30/18 13:42 Temp 36.9 Pulse 75 Resp 18 B/P (MAP) 150/76 (100) Pulse Ox 100 Capillary Refill : Less Than 3 Seconds Height, Weight, BMI Height: 5'1.00" Weight: 127lbs. oz. 57.587561ax; 22.00 BMI Method:Stated General Appearance: No Apparent Distress, WD/WN Eyes: Bilateral Eye PERRL, Bilateral Eye EOMI HEENT: PERRL/EOMI, Normal ENT Inspection, Pharynx Normal Neck: Full Range of Motion, Normal Inspection Respiratory: Lungs Clear, Normal Breath Sounds Cardiovascular: Regular Rate, Rhythm, No Edema Gastrointestinal: Normal Bowel Sounds, Non Tender, Soft Extremity: Normal Capillary Refill Neurologic/Psychiatric: Alert, Oriented x3 Progress/Results/Core Measures Suspected Sepsis Recent Fever Within 48 Hours: No Infection Criteria Present: Documented Infection New/Unexplained Altered Menta: No Sepsis Screen: No Definite Risk SIRS Temperature: Pulse: 75 Respiratory Rate: 18 Blood Pressure 150 /76 Mean: 100 Results/Orders My Orders Orders - TOMASA DOUGLASS DO Ceftriaxone For Im Use (Rocephin For Im (10/30/18 14:00) Lidocaine 1% Inj 20 Ml (Xylocaine 1% Inj (10/30/18 14:00) Promethazine Injection (Phenergan Injec (10/30/18 14:00) Vital Signs/I&O 10/30/18 13:42 Temp 36.9 Pulse 75 Resp 18 B/P (MAP) 150/76 (100) Pulse Ox 100 Capillary Refill : Less Than 3 Seconds Blood Pressure Mean: 100 Progress Note : Time: 14:09 Progress Note Patient is seen and examined in the emergency department for some persistent n ausea and vomiting. Patient was treated for urinary tract infection. Her urine sample was suspicious for UTI and she had symptoms that her urine culture returned only as contaminated so UTI diagnosis remains on clear. Not entirely certain why she has persistent nausea and vomiting but she has no abdominal pain and she is nontoxic in appearance. Her labs were last checked yesterday and were reportedly normal for her. Today she is given a shot of IM Rocephin along with a shot of IM Phenergan. No additional labs are collected today and I do not feel she meets any acute admission criteria. She does not objectively seem dehydrated. I did recommend that she return to the emergency department tomorrow if her symptoms persist and would recommend repeat lab panel and urinalysis for ongoing evaluation of her symptoms. The patient states she has appointment already scheduled tomorrow for her chemotherapy infusion but she will return if she is not improving or she develops any new or worsening symptoms. Departure Impression Primary Impression: Nausea and vomiting Additional Impression: Urinary tract infection Disposition: 01 HOME, SELF-CARE Condition: Improved Departure-Patient Inst. Patient Instructions: Urinary Tract Infection, Adult (DC) TOMASA DOUGLASS DO Oct 30, 2018 14:11
[2018-10-30 14:16] VITALS: BP 150/76
== END 2018-10-30 14:16 | disposition home or self-care (01) ==
LOC: EDUNIT# 13:33 → ER FS 13:34
DX: N39.0 Urinary tract infection, site not specified (principal); I10 Essential (primary) hypertension; Z85.79 Personal history of other malignant neoplasms of lymphoid, hematopoietic and related tissues; Z88.2 Allergy status to sulfonamides; Z91.040 Latex allergy status; Z88.1 Allergy status to other antibiotic agents; Z94.84 Stem cells transplant status; Z90.49 Acquired absence of other specified parts of digestive tract; Z90.710 Acquired absence of both cervix and uterus
CPT/HCPCS: 99284

== ENCOUNTER 2019-01-01 14:08 | Emergency (ER) | payer MEDICARE, OTHER ==
[~2019-01-01] VITALS: Ht 154.9 cm; Wt 54.5 kg
[2019-01-01] MEDS ORDERED: HYDROmorphone 2 MG/ML VIAL (DILAUDID) IV STA (15:00)
[2019-01-01] MEDS ORDERED: ONDANSETRON 4 MG/2 ML (SDV) Z0FRAN IVP STA (15:00)
[2019-01-01] MEDS ORDERED: NS IV 1000 ML 1,000 ML IV STA (15:00)
[2019-01-01] MEDS ORDERED: ORPHENADRINE 60 MG/2 ML (NORFLEX) AMP IV STA (15:00)
--- NOTE | 2019-01-01 15:06 | ED General ---
General Chief Complaint: Lower Extremity Stated Complaint: LT LEG PAIN Nursing Triage Note: Patient ambulatory to ER reporting pain uncontrolled from Multiple Myeloma in left leg thigh. Pt had scheduled MS Contin 30 mg this a.m. and uses Morphine 15 mg every 4 hours as break through pain and last dose 1300. Pt on active tx with [facility] in [place] receiving Velcade on every Wednesday. Nursing Sepsis Screen: No Definite Risk Source of Information: Patient History of Present Illness Date Seen by Provider: Jan 01, 2019 Time Seen by Provider: 14:46 Initial Comments 68-year-old female presenting with exacerbation of her chronic left leg pain that she reports is from her multiple myeloma. She takes MS Contin and breakthrough morphine for her chronic pain. She had been traveling on and Wednesday and isn't sure if she overdid things. Wednesday and Wednesday her pain is been under control. She has been trying to help control and with her meds at home but today she just couldn't tolerate it any longer. She also has had some nausea and vomiting which is not unusual for her, especially when her pain gets out of control. She does feel slightly lightheaded and dizzy at times. She denies any fever. She has not had any injury to trigger the pain making it worse. She reports there is some mild burning with urination but states that is not unusual for her either. Allergies and Home Medications Allergies Coded Allergies: Sulfa (Sulfonamide Antibiotics) (Verified Allergy, Unknown, hives, 05/24/18) latex (Verified Allergy, Unknown, anaphylaxis, 05/24/18) vancomycin (Verified Allergy, Unknown, hives, 05/24/18) Home Medications Ceftriaxone Sodium 1 Gm Vial, 1 GM IJ DAILY Prescribed by: ERIKA SANABRIA on 10/28/181843 Lidocaine HCl in 0.9 % NaCl/Pf 100 Mg/10 Ml Syringe, 20 MG IJ DAILY Use as dilutant for Rocephin. Prescribed by: ERIKA SANABRIA on 10/28/18 184 Ondansetron 4 Mg Tab.rapdis, 4 MG PO Q6H PRN for NAUSEA/VOMITING-1ST LINE Prescribed by: ANA MENON on 05/24/18 1218 Promethazine HCl 25 Mg Tablet, 25 MG PO Q6H PRN for NAUSEA/VOMITING Prescribed by: RENAN LOVETT on 07/05/18 1833 Promethazine HCl 25 Mg Tablet, 25 MG PO Q6H PRN for NAUSEA/VOMITING Prescribed by: FIDEL RIBEIRO on 10/27/18 1415 Promethazine HCl 25 Mg Supp.rect, 25 MG RC Q8H PRN for NAUSEA/VOMITING-2ND LINE Prescribed by: GONZALES YBARRA on 10/28/18 1722 Patient Home Medication List Home Medication List Reviewed: Yes Review of Systems Review of Systems Constitutional: chills, dizziness; No fever; malaise EENTM: no symptoms reported Respiratory: no symptoms reported Cardiovascular: no symptoms reported Gastrointestinal: see HPI Genitourinary: see HPI Musculoskeletal: see HPI Skin: no symptoms reported Psychiatric/Neurological: No Symptoms Reported Past Ppjeldu-Borrwk-Nzpjuk Hx Past Med/Social Hx: Reviewed Nursing Past Med/Soc Hx Patient Social History Alcohol Use: Denies Use Recreational Drug Use: No Smoking Status: Never a Smoker 2nd Hand Smoke Exposure: No Recent Foreign Travel: No Contact w/Someone Who Travel: No Recent Infectious Disease Expo: No Recent Hopitalizations: No Physical Abuse: No Sexual Abuse: No Mistreated: No Fear: No Seasonal Allergies Seasonal Allergies: No Past Medical History Surgeries: Yes (colon resection; stem cell transplant) Appendectomy, Bowel Surgery, Gallbladder, Hysterectomy Respiratory: No Cardiac: Yes Hypertension Neurological: No Genitourinary: Yes Bladder Infection Gastrointestinal: No Musculoskeletal: No Endocrine: No HEENT: No Cancer: Yes (blood cancer; light chain proteins) Psychosocial: No Integumentary: No Blood Disorders: Yes Physical Exam Vital Signs Vital Signs - First Documented 01/01/19 14:15 Temp 36.5 Pulse 65 Resp 18 B/P (MAP) 115/64 (81) Pulse Ox 100 O2 Delivery Room Air Capillary Refill : Less Than 3 Seconds Height, Weight, BMI Height: 5'1.00" Weight: 127lbs. oz. 57.227534zj; 22.00 BMI Method:Stated General Appearance: No Apparent Distress, WD/WN HEENT: PERRL/EOMI, Pharynx Normal Neck: Full Range of Motion, Non Tender, Supple Respiratory: Chest Non Tender, Lungs Clear, Normal Breath Sounds Cardiovascular: Regular Rate, Rhythm, Normal Peripheral Pulses Gastrointestinal: No Pulsatile Mass, Non Tender, Soft Extremity: Normal Capillary Refill, No Pedal Edema, Other (tender to palpation along the posterior left thigh) Neurologic/Psychiatric: Alert, Oriented x3 Skin: Normal Color, Warm/Dry Progress/Results/Core Measures Suspected Sepsis Recent Fever Within 48 Hours: No Infection Criteria Present: None New/Unexplained Altered Menta: No Sepsis Screen: No Definite Risk SIRS Temperature: Pulse: 65 Respiratory Rate: 18 Laboratory Tests 01/01/19 15:05: White Blood Count 4.9 Blood Pressure 115 /64 Mean: 81 Laboratory Tests 01/01/19 15:05: Creatinine 1.42H, Platelet Count 121L, Total Bilirubin 0.5 Results/Orders Lab Results Laboratory Tests Test 01/01/19 15:05 Range/Units White Blood Count 4.9 4.3-11.0 10^3/uL Red Blood Count 3.17 L 4.35-5.85 10^6/uL Hemoglobin 10.9 L 11.5-16.0 G/DL Hematocrit 33 L 35-52 % Mean Corpuscular Volume 104 H 80-99 FL Mean Corpuscular Hemoglobin 34 25-34 PG Mean Corpuscular Hemoglobin Concent 33 32-36 G/DL Red Cell Distribution Width 12.8 10.0-14.5 % Platelet Count 121 L 130-400 10^3/uL Mean Platelet Volume 9.9 7.4-10.4 FL Neutrophils (%) (Auto) 73 42-75 % Lymphocytes (%) (Auto) 17 12-44 % Monocytes (%) (Auto) 10 0-12 % Eosinophils (%) (Auto) 0 0-10 % Basophils (%) (Auto) 0 0-10 % Neutrophils # (Auto) 3.6 1.8-7.8 X 10^3 Lymphocytes # (Auto) 0.8 L 1.0-4.0 X 10^3 Monocytes # (Auto) 0.5 0.0-1.0 X 10^3 Eosinophils # (Auto) 0.0 0.0-0.3 10^3/uL Basophils # (Auto) 0.0 0.0-0.1 10^3/uL Sodium Level 139 135-145 MMOL/L Potassium Level 3.8 3.6-5.0 MMOL/L Chloride Level 107 98-107 MMOL/L Carbon Dioxide Level 25 21-32 MMOL/L Anion Gap 7 5-14 MMOL/L Blood Urea Nitrogen 17 7-18 MG/DL Creatinine 1.42 H 0.60-1.30 MG/DL Estimat Glomerular Filtration Rate 37 BUN/Creatinine Ratio 12 Glucose Level 86 70-105 MG/DL Calcium Level 9.4 8.5-10.1 MG/DL Corrected Calcium 9.3 8.5-10.1 MG/DL Magnesium Level 2.0 1.6-2.4 MG/DL Total Bilirubin 0.5 0.1-1.0 MG/DL Aspartate Amino Transf (AST/SGOT) 14 5-34 U/L Alanine Aminotransferase (ALT/SGPT) 8 0-55 U/L Alkaline Phosphatase 62 40-136 U/L Total Protein 6.2 L 6.4-8.2 GM/DL Albumin 4.1 3.2-4.5 GM/DL Lipase 17 8-78 U/L My Orders Orders - NGOC CASRTO MD Comprehensive Metabolic Panel (01/01/19 15:00) Lipase (01/01/19 15:00) Ua Culture If Indicated (01/01/19 15:00) Ed Iv/Invasive Line Start (01/01/19 15:00) Cbc With Automated Diff (01/01/19 15:00) Magnesium (01/01/19 15:00) Ns Iv 1000 Ml (Sodium Chloride 0.9%) (01/01/19 15:00) Ondansetron Injection (Zofran Injectio (01/01/19 15:00) Hydromorphone Injection (Dilaudid Inject (01/01/19 15:00) Orphenadrine Injection (Norflex Injectio (01/01/19 15:00) Vital Signs/I&O 01/01/19 01/01/19 14:15 15:23 Temp 36.5 36.5 Pulse 65 Resp 18 B/P (MAP) 115/64 (81) Pulse Ox 100 O2 Delivery Room Air Capillary Refill : Less Than 3 Seconds Blood Pressure Mean: 81 POS Progress Note #1: Progress Note Obtain basic labs and give IV fluids for hydration to see if this might help with her pain. Obtain urinalysis as well. Give 1 mg of Dilaudid along with Norflex to try and help with pain and muscle spasms. Give Zofran to help with nausea. Try to get back on top of the chronic pain and see if her symptoms improved to the point that she could be discharged and continue on her regular oral medicines Progress Note #2: Progress Note Labs appear stable without any acute significant abnormality. Her pain is down to a 3 or 4 and much more tolerable after treatment in the ED. She reports that she feels like she could go home and stay on top of her pain with her normal regimen now. Will discharge home and have her continue to follow up with regular provider as needed Departure Impression Primary Impression: Complex regional pain syndrome type 1 affecting left thigh Additional Impression: Multiple myeloma Qualified Codes: C90.00 - Multiple myeloma not having achieved remission Disposition: HOME, SELF-CARE Condition: Improved Departure-Patient Inst. Decision time for Depature: 16:37 Referrals: ANA LUISA BARRAGAN APRN (PCP) Primary Care Physician [facility] (Family) Primary Care Physician Patient Instructions: CHRONIC PAIN, Multiple Myeloma (DC) Add. Discharge Instructions: Continue on your regular medications at home now that the acute exacerbation of your chronic pain has been settled down. Check back with your regular provider's about continued concerns and problems All discharge instructions reviewed with patient and/or family. Voiced understanding. NGOC CASTRO MD Jan 01, 2019 15:06 POS
[2019-01-01 15:25] LABS: HEMATOCRIT 33 % (35-52); HEMOGLOBIN 10.9 G/DL (11.5-16.0); MEAN CORPUSCULAR HEMOGLOBIN 34 PG (25-34); MEAN CORPUSCULAR HGB CONC 33 G/DL (32-36); MEAN CORPUSCULAR VOLUME 104 FL (80-99); MEAN PLATELET VOLUME 9.9 FL (7.4-10.4); PLATELET COUNT 121 10^3/uL (130-400); RED CELL DISTRIBUTION WIDTH 12.8 % (10.0-14.5); WHITE BLOOD COUNT 4.9 10^3/uL (4.3-11.0)
[2019-01-01 15:26] LABS: BASOPHILS % (AUTO) 0 % (0-10); EOSINOPHILS % (AUTO) 0 % (0-10); LYMPHOCYTES # (AUTO) 0.8 X 10^3 (1.0-4.0); LYMPHOCYTES % (AUTO) 17 % (12-44); MONOCYTES # (AUTO) 0.5 X 10^3 (0.0-1.0); MONOCYTES % (AUTO) 10 % (0-12); NEUTROPHILS # (AUTO) 3.6 X 10^3 (1.8-7.8); NEUTROPHILS % (AUTO) 73 % (42-75)
[2019-01-01 15:41] LABS: ALBUMIN 4.1 GM/DL (3.2-4.5); BILIRUBIN,TOTAL 0.5 MG/DL (0.1-1.0); CALCIUM 9.4 MG/DL (8.5-10.1); CREATININE SERUM 1.42 MG/DL (0.60-1.30); POTASSIUM 3.8 MMOL/L (3.6-5.0); TOTAL PROTEIN 6.2 GM/DL (6.4-8.2)
--- NOTE | 2019-01-01 16:20 | NUR ---
IV fluids infused. Dr doing follow up on pts pain control. Pt agreeable to feeling like going home. Planning discharge.
[2019-01-01 17:15] VITALS: BP 108/67
--- NOTE | 2019-01-01 17:15 | NUR ---
Pt discharged to home at this time following flushing of port per protocol aseptic technique and de-access. Pt reports pain of "3" much improved. VSS.
== END 2019-01-01 17:15 | disposition home or self-care (01) ==
LOC: EDUNIT# 14:08 → ER FS 14:09
DX: G90.522 Complex regional pain syndrome I of left lower limb (principal); C90.00 Multiple myeloma not having achieved remission; I10 Essential (primary) hypertension; Z88.2 Allergy status to sulfonamides; Z88.1 Allergy status to other antibiotic agents; Z85.79 Personal history of other malignant neoplasms of lymphoid, hematopoietic and related tissues; Z94.84 Stem cells transplant status; Z91.040 Latex allergy status; Z90.49 Acquired absence of other specified parts of digestive tract; Z90.710 Acquired absence of both cervix and uterus
CPT/HCPCS: 36415; 80053; 83690; 83735; 85025; 96374; 96375

== ENCOUNTER 2019-03-01 01:50 | Observation (INO) | payer MEDICARE, OTHER ==
[~2019-03-01] VITALS: Ht 154.9 cm; Wt 56.1 kg
[~2019-03-01 01:50] MED LIST changes: -ACYC400T; +ACYC400T PO; -AMLO5TAB9; +AMLO5TAB9 PO; -GBPN600T; +GBPN600T PO; -GRAN1PAT; +GRAN1PAT TD; -LOSA100T57; +LOSA100T57 PO; -MORP60TA52; +MORP60TA69; -NALO25TA; +NALO25TA PO; -PANT40TA3; +PANT40TA3 PO; -POTA10TA14; +POTA10TA14 PO; -POTA500T; +POTA500T PO
--- NOTE | 2019-03-01 02:19 | ED General ---
General Chief Complaint: Head/Cervical Problems Stated Complaint: HEADACHE,N/V Nursing Triage Note: Patient was brought in via EMS with complaints of a headache. Patient states that the headache started 02/28/19 at approximately 22:00. Patient states the headache is in the back of the neck and goes up the back of the head. The headache has progressively gotten worse. She currently rates her pain at a 10 on the 1-10 pain scale. Patient also states that she has nausea and vomiting. EMS started a 22 in the left FA. EMS gave 4mg of Zofran IV and 6mg of Morphine IV. Nursing Sepsis Screen: No Definite Risk Source of Information: Patient, EMS History of Present Illness Date Seen by Provider: Mar 01, 2019 Time Seen by Provider: 02:01 Initial Comments 68-year-old female presenting with complaints of nausea, vomiting, headache from her neck to the top of her head that has progressed and worsened since receiving chemotherapy on Wednesday. She receives chemotherapy every other Wednesday for her multiple myeloma. She does this with Dr. Perales out [facility]. The nausea and vomiting is not unusual however she has not had a headache like this with the chemotherapy previously. She was feeling so bad after this round of chemotherapy that she did not get out of bed since Wednesday. She took her routine medications Wednesday night but then did not take anything on Wednesday. She has had none of her home medicines at all Wednesday morning or Wednesday night. Overnight she started having the neck pain radiating up into her head with increased nausea and vomiting. She has chronic diarrhea after chemotherapy. Tonight with her severe headache that started around 10 PM she states that she also was having blurred vision which was unusual for her. She was so weak and dizzy that she fell twice while trying to make it to the door before calling for 911 assistance. She denies having any pain with urination. She does have chills. Allergies and Home Medications Allergies Coded Allergies: Sulfa (Sulfonamide Antibiotics) (Verified Allergy, Unknown, hives, 05/24/18) latex (Verified Allergy, Unknown, anaphylaxis, 05/24/18) vancomycin (Verified Allergy, Unknown, hives, 05/24/18) Home Medications Ceftriaxone Sodium 1 Gm Vial, 1 GM IJ DAILY Prescribed by: ERIKA SANABRIA on 10/28/18 8618 Lidocaine HCl in 0.9 % NaCl/Pf 100 Mg/10 Ml Syringe, 20 MG IJ DAILY Use as dilutant for Rocephin. Prescribed by: ERIKA SANABRIA on 10/28/18 1844 Ondansetron 4 Mg Tab.rapdis, 4 MG PO Q6H PRN for NAUSEA/VOMITING-1ST LINE Prescribed by: ANA MENON on 05/24/18 1218 Promethazine HCl 25 Mg Tablet, 25 MG PO Q6H PRN for NAUSEA/VOMITING Prescribed by: RENAN LOVETT on 07/05/18 1833 Promethazine HCl 25 Mg Tablet, 25 MG PO Q6H PRN for NAUSEA/VOMITING Prescribed by: FIDEL RIBEIRO on 10/27/18 1415 Promethazine HCl 25 Mg Supp.rect, 25 MG RC Q8H PRN for NAUSEA/VOMITING-2ND LINE Prescribed by: GONZALES YBARRA on 10/28/18 1722 Patient Home Medication List Home Medication List Reviewed: Yes Review of Systems Review of Systems Constitutional: chills, dizziness; No fever; malaise, weakness (generalized) EENTM: blurred vision (tonight since having the headache at 10 PM) Respiratory: No cough, No short of breath Cardiovascular: No chest pain Gastrointestinal: diarrhea, nausea, vomiting Genitourinary: No dysuria, No pain Musculoskeletal: neck pain (radiating to the top of her head) Skin: No rash Psychiatric/Neurological: Headache (neck pain radiating to the top of her head since around 10 PM) Past Voduqxr-Cdscde-Whnpia Hx Past Med/Social Hx: Reviewed Nursing Past Med/Soc Hx Patient Social History 2nd Hand Smoke Exposure: No Recent Foreign Travel: No Contact w/Someone Who Travel: No Recent Infectious Disease Expo: No Recent Hopitalizations: No Seasonal Allergies Seasonal Allergies: No Past Medical History Surgeries: Yes (colon resection; stem cell transplant) Appendectomy, Bowel Surgery, Gallbladder, Hysterectomy Respiratory: No Cardiac: Yes Hypertension Neurological: No Genitourinary: Yes Bladder Infection Gastrointestinal: No Musculoskeletal: No Endocrine: No HEENT: No Cancer: Yes (blood cancer; light chain proteins) Psychosocial: No Integumentary: No Blood Disorders: Yes Physical Exam Vital Signs Vital Signs - First Documented 03/01/19 02:09 Temp 36.8 Pulse 89 Resp 22 B/P (MAP) 137/87 (104) Pulse Ox 98 O2 Delivery Room Air Capillary Refill : Less Than 3 Seconds Height, Weight, BMI Height: 5'1.00" Weight: 127lbs. oz. 57.482013jh; 24.00 BMI Method:Stated General Appearance: WD/WN, Moderate Distress (complaining of headache and k eeping her eyes closed stating that the bright lights make the headache worse) HEENT: PERRL/EOMI, TMs Normal, Normal ENT Inspection, Pharynx Normal Neck: Full Range of Motion, Supple; No Carotid Bruit, No Limited Range of Motion, No Lymphadenopathy (L), No Lymphadenopathy (R); Tender Lateral; No Tender Midline Respiratory: Chest Non Tender, Lungs Clear, Normal Breath Sounds, No Accessory Muscle Use, No Respiratory Distress Cardiovascular: Regular Rate, Rhythm, Normal Peripheral Pulses Gastrointestinal: Normal Bowel Sounds, No Pulsatile Mass, Non Tender, Soft Rectal: Deferred Back: Normal Inspection, No CVA Tenderness, No Vertebral Tenderness Extremity: Normal Capillary Refill, Normal Range of Motion, No Pedal Edema Neurologic/Psychiatric: Alert, Oriented x3, 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 and 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-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 Norm as Tested Skin: Normal Color, Warm/Dry Progress/Results/Core Measures Suspected Sepsis Recent Fever Within 48 Hours: No Infection Criteria Present: None New/Unexplained Altered Menta: No Sepsis Screen: No Definite Risk SIRS Temperature: Pulse: 89 Respiratory Rate: 22 Laboratory Tests 03/01/19 02:22: White Blood Count 6.4 Blood Pressure 137 /87 Mean: 104 Laboratory Tests 03/01/19 02:22: Creatinine 1.56H, Platelet Count 107L, Total Bilirubin 0.4 Results/Orders Lab Results Laboratory Tests Test 03/01/19 02:22 Range/Units White Blood Count 6.4 4.3-11.0 10^3/uL Red Blood Count 3.48 L 4.35-5.85 10^6/uL Hemoglobin 11.7 11.5-16.0 G/DL Hematocrit 36 35-52 % Mean Corpuscular Volume 103 H 80-99 FL Mean Corpuscular Hemoglobin 34 25-34 PG Mean Corpuscular Hemoglobin Concent 33 32-36 G/DL Red Cell Distribution Width 12.9 10.0-14.5 % Platelet Count 107 L 130-400 10^3/uL Mean Platelet Volume 9.0 7.4-10.4 FL Neutrophils (%) (Auto) 78 H 42-75 % Lymphocytes (%) (Auto) 11 L 12-44 % Monocytes (%) (Auto) 10 0-12 % Eosinophils (%) (Auto) 1 0-10 % Basophils (%) (Auto) 0 0-10 % Neutrophils # (Auto) 5.0 1.8-7.8 X 10^3 Lymphocytes # (Auto) 0.7 L 1.0-4.0 X 10^3 Monocytes # (Auto) 0.6 0.0-1.0 X 10^3 Eosinophils # (Auto) 0.0 0.0-0.3 10^3/uL Basophils # (Auto) 0.0 0.0-0.1 10^3/uL Sodium Level 139 135-145 MMOL/L Potassium Level 3.3 L 3.6-5.0 MMOL/L Chloride Level 105 98-107 MMOL/L Carbon Dioxide Level 21 21-32 MMOL/L Anion Gap 13 5-14 MMOL/L Blood Urea Nitrogen 22 H 7-18 MG/DL Creatinine 1.56 H 0.60-1.30 MG/DL Estimat Glomerular Filtration Rate 33 BUN/Creatinine Ratio 14 Glucose Level 118 H 70-105 MG/DL Calcium Level 9.4 8.5-10.1 MG/DL Corrected Calcium 9.3 8.5-10.1 MG/DL Magnesium Level 1.9 1.6-2.4 MG/DL Total Bilirubin 0.4 0.1-1.0 MG/DL Aspartate Amino Transf (AST/SGOT) 18 5-34 U/L Alanine Aminotransferase (ALT/SGPT) 12 0-55 U/L Alkaline Phosphatase 65 40-136 U/L Total Protein 6.3 L 6.4-8.2 GM/DL Albumin 4.1 3.2-4.5 GM/DL Lipase 19 8-78 U/L My Orders Orders - NGOC CASTRO MD Comprehensive Metabolic Panel (03/01/19 02:26) Lipase (03/01/19 02:26) Ua Culture If Indicated (03/01/19 02:26) Ed Iv/Invasive Line Start (03/01/19 02:26) Cbc With Automated Diff (03/01/19 02:26) Magnesium (03/01/19 02:26) Ct Head/Cervical Spine Wo (03/01/19 02:26) Hydromorphone Injection (Dilaudid Inject (03/01/19 02:26) Ondansetron Injection (Zofran Injectio (03/01/19 02:26) Lorazepam Injection (Ativan Injection) (03/01/19 03:16) Metoclopramide Injection (Reglan Injecti (03/01/19 03:16) Diphenhydramine Injection (Benadryl Inje (03/01/19 03:16) Diphenhydramine Injection (Benadryl Inje (03/01/19 03:16) Metoclopramide Injection (Reglan Injecti (03/01/19 03:16) Lorazepam Injection (Ativan Injection) (03/01/19 03:17) O2 (03/01/19 04:25) Hydromorphone Injection (Dilaudid Inject (03/01/19 04:25) Ns Iv 1000 Ml (Sodium Chloride 0.9%) (03/01/19 04:25) Vital Signs/I&O 03/01/19 02:09 Temp 36.8 Pulse 89 Resp 22 B/P (MAP) 137/87 (104) Pulse Ox 98 O2 Delivery Room Air Capillary Refill : Less Than 3 Seconds Blood Pressure Mean: 104 Progress Note #1: Progress Note Obtain basic labs and urinalysis. Give IV fluids for hydration. Since she has not had any of her chronic pain medication will try dose of Dilaudid to see if that would help with her pain. Also give 8 mg of Zofran since she normally takes 8 mg [address] a [address] scan of the head and cervical spine since she was having such a severe headache and had tenderness to the lateral parts of her neck and complained of falling 2 at home. Progress Note #2: Progress Note When patient returned from CT head was being managed through the department she had recurrent nausea and increased pain. She had dry heaves. Since she had already received 12 mg of Zofran will give Ativan 1 mg, Benadryl 25 mg, Reglan 5 mg IV. Labs appear stable other than she has mild hypokalemia at 3.3. Her CBC appears stable from prior testing. She has chronic renal insufficiency that again was stable for her at 1.56. She does not feel that she couldn't urinate yet. Await imaging results Progress Note #3: Progress Note CT scan came back showing no acute calvarial or cervical spine fractures or acute intracranial process. Updated patient on results. She was still complaining of pain that 7 out of 10. She said that she still was having nausea especially if she was moving around or having bright lights. Will hydrate patient as well as try 0.5 of Dilaudid. Order a replacement of potassium. Discuss observation admit with Dr. Suggs for the [facility] clinic. Progress Note #4: Time: 04:[address] Suggs accepted the patient for observation admission to continue fluids, pain medicine, antiemetics and so she could be restarted on her oral medications and tolerate taking oral fluids and food Diagnostic Imaging Diagonstic Imaging: CT Plain Films/CT/US/NM/MRI: c-spine, head Comments No acute intracranial process and no cervical spine fracture. Reviewed: Reviewed Night [facility] Study Departure Communication (Admissions) Time/Spoke to Admitting Phy: 04:41 D/w Dr. Suggs and she accepted the patient for observation status for hydration, pain control and nausea control to get her where she is tolerating oral intake. Impression Primary Impression: Intractable nausea and vomiting Additional Impressions: Chemotherapy induced nausea and vomiting Hypokalemia Opiate withdrawal Chronic pain Qualified Codes: G89.4 - Chronic pain syndrome Disposition: ADMITTED INPATIENT Condition: Stable Admissions Decision to Admit Reason: Admit from ER (General) Decision to Admit/Date: Mar 01, 2019 Time/Decision to Admit Time: 04:41 Departure-Patient Inst. Referrals: ANA LUISA BARRAGAN APRN (PCP) Primary Care Physician [facility] (Family) Primary Care Physician NGOC CASTRO MD Mar 01, 2019 02:19
[2019-03-01] MEDS ORDERED: ONDANSETRON 4 MG/2 ML (SDV) Z0FRAN IVP STA (02:26)
[2019-03-01] MEDS ORDERED: HYDROmorphone 2 MG/ML VIAL (DILAUDID) IV STA ×2 (02:26→04:25)
[2019-03-01 02:30] LABS: HEMATOCRIT 36 % (35-52); HEMOGLOBIN 11.7 G/DL (11.5-16.0); MEAN CORPUSCULAR HEMOGLOBIN 34 PG (25-34); MEAN CORPUSCULAR HGB CONC 33 G/DL (32-36); MEAN CORPUSCULAR VOLUME 103 FL (80-99); PLATELET COUNT 107 10^3/uL (130-400); RED CELL DISTRIBUTION WIDTH 12.9 % (10.0-14.5); WHITE BLOOD COUNT 6.4 10^3/uL (4.3-11.0)
[2019-03-01 02:31] LABS: BASOPHILS % (AUTO) 0 % (0-10); EOSINOPHILS % (AUTO) 1 % (0-10); LYMPHOCYTES # (AUTO) 0.7 X 10^3 (1.0-4.0); LYMPHOCYTES % (AUTO) 11 % (12-44); MONOCYTES # (AUTO) 0.6 X 10^3 (0.0-1.0); MONOCYTES % (AUTO) 10 % (0-12); NEUTROPHILS % (AUTO) 78 % (42-75)
[2019-03-01 02:53] LABS: ALBUMIN 4.1 GM/DL (3.2-4.5); BILIRUBIN,TOTAL 0.4 MG/DL (0.1-1.0); CALCIUM 9.4 MG/DL (8.5-10.1); CREATININE SERUM 1.56 MG/DL (0.60-1.30); MAGNESIUM 1.9 MG/DL (1.6-2.4); POTASSIUM 3.3 MMOL/L (3.6-5.0); TOTAL PROTEIN 6.3 GM/DL (6.4-8.2)
[2019-03-01] MEDS ORDERED: diphenhydrAMINE 50 MG/ML INJ (BENADRYL) IVP STA (03:16)
[2019-03-01] MEDS ORDERED: METOCLOPRAMIDE INJ 10 MG/2 ML (REGLAN) IVP STA (03:16)
[2019-03-01] MEDS ORDERED: LORazepam INJ 2 MG/ML (ATIVAN) VIAL IVP STA (03:16)
[2019-03-01] MEDS ORDERED: METOCLOPRAMIDE INJ 10 MG/2 ML (REGLAN) ONE (03:16)
[2019-03-01] MEDS ORDERED: diphenhydrAMINE 50 MG/ML INJ (BENADRYL) ONE (03:16)
[2019-03-01] MEDS ORDERED: LORazepam INJ 2 MG/ML (ATIVAN) VIAL ONE (03:17)
[2019-03-01] MEDS ORDERED: NS IV 1000 ML 1,000 ML IV STA (04:25)
[2019-03-01] MEDS ORDERED: POTASSIUM CL 10MEQ/50ML IVPB 50 ML IV STA (05:19)
--- NOTE | 2019-03-01 06:48 | Diagnostic Imaging Report ---
PROCEDURE: CT head and CT cervical spine without contrast. TECHNIQUE: Multiple contiguous axial images were obtained through the brain and cervical spine without the use of intravenous contrast. Sagittal and coronal reformations through the cervical spine were then performed. Auto Exposure Controls were utilized during the CT exam to meet ALARA standards for radiation dose reduction. INDICATION: Headache, nausea, vomiting, neck pain. COMPARISON: None CT HEAD FINDINGS: The ventricles and sulci are within normal limits. There is no midline shift or mass effect. No evidence for acute intracranial hemorrhage or extra-axial fluid collections. The bony calvarium is intact and the paranasal sinuses are clear. CT CERVICAL SPINE FINDINGS: There is normal alignment and curvature of the cervical spine. There is no evidence for acute bony abnormality. The odontoid is intact. The prevertebral soft tissues are normal. IMPRESSION: 1. No acute intracranial abnormality. 2. No evidence for acute cervical spine fracture or subluxation. A preliminary report was provided by [employer]. Dictated by: Dictated on workstation # [id number]
--- NOTE | 2019-03-01 07:20 | NUR ---
Pt assisted up to bedside commode to void. Noted stool smears on posterior edge of hat.
[2019-03-01 08:00] VITALS: BP 116/76
--- NOTE | 2019-03-01 08:25 | NUR ---
PT ARRIVED TO FLOOR VIA EMS AT THIS TIME. A/O X4. PAIN 8/10 IN HEAD/NECK. FAMILY AT SIDE. PT ORIENTED TO ROOM/CALL LIGHT. WILL GIVE PT PAIN MEDICATION ONCE ORDERS ARE IN EMAR. PT VERBALIZED UNDERSTANDING OF PLAN OF CARE. WILL MONITOR PT CLOSELY
[2019-03-01] MEDS ORDERED: ONDANSETRON 4 MG/2 ML (SDV) Z0FRAN IV PRN (08:45)
[2019-03-01] MEDS ORDERED: 1/2 NS W/KCL 20 MEQ/L 1,000 ML IV SCH (08:45)
[2019-03-01] MEDS ORDERED: HYDROmorphone 2 MG/ML VIAL (DILAUDID) IV PRN (08:45)
[2019-03-01 09:23] VITALS: BP 116/76
[2019-03-01] MEDS ORDERED: APIX2.5T PO (10:12)
[2019-03-01] MEDS ORDERED: LEVO25TA5 PO (10:12)
[2019-03-01] MEDS ORDERED: ROSU10TA22 PO (10:12)
[2019-03-01] MEDS ORDERED: LOPE-134 PO (10:43)
[2019-03-01] MEDS ORDERED: POLY17PO6 PO (10:43)
[2019-03-01] MEDS ORDERED: PHEN97.511 PO (10:43)
[2019-03-01] MEDS ORDERED: TEMA15CA PO (10:43)
[2019-03-01] MEDS ORDERED: DOCU-143 PO (10:43)
[2019-03-01] MEDS ORDERED: DIPH25CA79 PO (10:43)
[2019-03-01] MEDS ORDERED: VALCADE INJ (10:43)
[2019-03-01] MEDS ORDERED: MORP15TA PO (10:43)
[2019-03-01] MEDS ORDERED: ALPR0.254 PO (10:43)
[2019-03-01] MEDS ORDERED: CALC1TAB29 PO (10:43)
[2019-03-01] MEDS ORDERED: ZOLP5TAB7 PO (10:43)
[2019-03-01] MEDS ORDERED: TRM50T PO (10:43)
[2019-03-01] MEDS ORDERED: MORP30TA60 PO (10:43)
[2019-03-01] MEDS ORDERED: CHOL200025 PO (10:43)
[2019-03-01] MEDS ORDERED: LORA-404 PO (10:43)
[2019-03-01] MEDS ORDERED: SENN-36 PO (10:43)
[2019-03-01] MEDS ORDERED: FEXO-14 PO (10:43)
[2019-03-01] MEDS ORDERED: CNC1KV IM (10:44)
[2019-03-01] MEDS ORDERED: ONDA8TAB13 PO (10:44)
--- NOTE | 2019-03-01 11:24 | NUR ---
PATIENT HAD A DETAILED LIST OF HER MEDICATIONS. I WENT OVER THIS LIST WITH HER AND SHE VERIFIED HOW SHE TAKES THEM. I COMPARED WITH THE EXT MED HX THAT SHOWS SOME FILLS THROUGH [employer] MAIL ORDER HOWEVER SHE TAKES SEVERAL MORE MEDICATIONS THAN REFLECTED THERE. [facility] FILLED: 02-13-19 SANCUSO PATCH #4 (STATES SHE PUTS IT ON ON SUNDAYS) [facility] FILLED: 01-31-19 PROTONIX 40MG #90 [facility] FILLED: 02-22-19 ELIQUIS 2.5MG BID #60 (HAS NOT BEEN PICKED UP YET) 02-15-19 ARMOUR THYROID 30MG DAILY #30 01-24-19 ELIQUIS 5MG 2 BID X 7 DAYS THEN 1 BID #60 01-09-19 MORPHINE ER 30MG Q12H #56 11-15-18 MORPHINE IR 15MG #28 FOR 10 DAYS 09-30-18 ALPRAZOLAM 0.25MG #84 FOR 28 DAYS SHE STATES SHE DID NOT THINK HER ELIQUIS DOSE WAS SUPPOSED TO BE DECREASED YET, SHE HAS NOT PICKED UP THE 2.5MG AND STATES SHE IS STILL TAKING THE 5MG TABS WHICH SHE STATES SHE IS NO OUT OF. SHE IS GOING TO DISCUSS WITH HER BEFORE CHANGING HER ELIQUIS DOSE. [facility] [employer] [facility] MAIL ORDER FILLED: 03-01-19 AMLODIPINE 5MG #90 03-01-19 LOSARTAN 100MG #45/90 DAYS 02-25-19 ROSUVASTATIN 10MG #90 01-12-19 MOVANTIK 25MG #90 (STATES SHE DOES NOT TAKE ON TUESDAYS, DAY OF ) 11-16-18 TEMAZEPAM 15MG #28 (USES PRN) 10-19-18 KLOR CON 10MEQ #180/90 DAYS 09-20-18 GABAPENTIN 600MG #90 07-10-18 ACYCLOVIR 400MG #180/90 DAYS 06-01-18 TRAMADOL 50MG #90/30 DAYS (USES PRN) SHE STATES SHE USES LORAZEPAM AND ZOLPIDEM - STATING SHE ALTERNATES BETWEEN THEM AND THE ALPRAZOLAM AND TEMAZEPAM. THEY HAVE NOT BEEN FILLED IN QUITE SOME TIME ACCORDING TO RAFI, I DID NOT INCLUDE THEM ON THE MED REC AT THIS TIME: 08-23-17 LORAZEPAM 0.5MG #120 FOR 10 DAYS 08-23-17 ZOLPIDEM 5MG #40 FOR 50 DAYS SHE STATES SHE RECEIVES SAMPLES FROM THE [employer] - SHE TAKES 2 BID. THEY ALLOW HER A LITTLE LESS THAN THAT SO SHE PAYS OUT OF POCKET FOR THE REMAINING. SHE GETS VALCADE INJECTIONS WEEKLY ON TUESDAYS. SHE STATES SHE RECENTLY STARTED B12 INJECTIONS AND IS TO GET ONE EACH WEEK FOR 4 WEEKS THEN ONCE MONTHLY, HER FIRST DOSE WAS THIS PAST WEDNESDAY. SHE ALSO REPORTS SHE HAS ZOFRAN ODT 8MG NEEDED. OTC MEDS: MIRALAX USES Q2H X 4 DOSES IF NEEDED THEN USES COLACE COLACE 2 HS PRN IMODIUM PRN SENOKOT DAILY PRN BENADRYL 100MG HS PRN ITCHING AZO UTI PRN PAIN TRACY BID PRN ALLERGIES OS MCKAY BID VITAMIN D BID
--- NOTE | 2019-03-01 11:32 | History & Physical ---
JOSTINDivyaYOBANI,MED STUDENT 03/01/19 1132: HPI History of Present Illness: Patient is a 68yo female presenting c/o headache and nausea and vomiting since yesterday evening around 10 PM. She states the headache came on suddenly and started from her neck and progressed to both sides of her head. She rated the pain a 10/10 upon presentation to [facility] ED, and at the time of this exam she rates the pain an 8/10. States light and movement worsen the pain, and denies anything relieving the pain. She has never had a headache like this in the past. Pt. also admits blurry vision and generalized weakness. She reports being so weak that she fell twice at home before calling 911. Denies auditory changes, slurred speech, focal weakness, fevers, chills, cough, unexpected weight changes, abdominal pain. She receives chemotherapy x2/month for multiple myeloma and she admits nausea and vomiting sometimes occur after these treatments. She follows Dr. Perales for her chemotherapy. Source: patient Exam Limitations: no limitations Time Seen by Provider: 08:30 Attending Physician Rick Olmos MD PCP Geneva Sigala Aprn Consult Date of Admission Mar 01, 2019 at 04:41 Home Medications Home Medications Reviewed patient Home Medication Reconciliation performed by pharmacy medication reconciliations mining technician and/or nursing. Patients Allergies have been reviewed. Allergies Coded Allergies: Sulfa (Sulfonamide Antibiotics) (Verified Allergy, Unknown, hives, 05/24/18) latex (Verified Allergy, Unknown, anaphylaxis, 05/24/18) vancomycin (Verified Allergy, Unknown, hives, 05/24/18) WGN-Rhupao-Izofxf Hx Patient Social History 2nd Hand Smoke Exposure: No Recent Foreign Travel: No Contact w/other who traveled: No Recent Hopitalizations: No Recent Infectious Disease Expo: No Immunizations Up To Date Date of Pneumonia Vaccine: Sep 29, 2017 Date of Influenza Vaccine: Nov 29, 2018 Past Medical History Hypothyroidism UTI's Hypertension Hyperlipidemia Family Medical History Significant Family History: Cancer (Colon - mother), Stroke (Brother) Review of Systems (CHC) Constitutional: No chills, No fever; weakness; No weight gain, No weight loss EENTM: blurred vision; No hearing loss, No vision loss, No epistaxis, No throat pain Respiratory: No cough, No hemoptysis, No short of breath, No stridor, No wheezing Cardiovascular: No chest pain, No palpitations Gastrointestinal: No abdominal pain; diarrhea (chronic - from chemotherapy); No hematemesis, No melena; nausea, vomiting Musculoskeletal: No joint pain, No muscle pain, No muscle stiffness Skin: no symptoms reported Psychiatric/Neurological: Headache; Denies Numbness, Denies Paresthesia, Denies Tingling Physical Exam-([facility]) Physical Exam Vital Signs VS - Last 72 Hours, by Label 03/01/19 03/01/19 03/01/19 03/01/19 02:09 07:34 08:00 08:25 Temp 36.8 36.2 36.0 Pulse 89 82 71 Resp 22 18 18 B/P (MAP) 137/87 (104) 126/83 116/76 (89) Pulse Ox 98 98 97 97 O2 Delivery Room Air Room Air Room Air Room Air 03/01/19 09:23 Temp 36.0 Pulse 71 Resp 18 B/P (MAP) 116/76 Pulse Ox 97 O2 Delivery Room Air Capillary Refill : Less Than 3 Seconds General Appearance: WD/WN, no apparent distress Eyes: Bilateral Eye PERRL, Bilateral Eye EOMI HEENT: PERRL/EOMI; No scleral icterus (R), No scleral icterus (L), No pharyngeal erythema Neck: non-tender, full range of motion, supple Respiratory: chest non-tender, lungs clear, normal breath sounds, no respiratory distress, no accessory muscle use Cardiovascular: regular rate, rhythm, no edema, no murmur Peripheral Pulses: 2+ Dorsalis Pedis (R), 2+ Left Dors-Pedis (L), 2+ Radial Pulses (R), 2+ Radial Pulses (L) Gastrointestinal: normal bowel sounds, soft, no organomegaly; No guarding, No rebound; tenderness (From injection site) Extremities: non-tender, no pedal edema, normal capillary refill Neurologic/Psychiatric: alert, normal mood/affect, oriented x 3 Lymphatic: no adenopathy Assessment/Plan Assessment/Plan Assessment & Plan Nausea and vomiting -Zofran 8mg IV Q6H prn -Trial of regular diet -Consider discharge home tomorrow Headache -Acetaminophen 1000mg PO Q6H prn -DC Dilaudid 0.5mg IV - patient denied pain relief -DC IV fluids -Head/C-spine CT with no abnormal findings DVT Prophylaxis -sequential compression device Q4H -ambulate as tolerated Clinical Quality Measures DVT/VTE Risk/Contraindication: Risk Factor Score Per Nursin RFS Level Per Nursing on Admit: 4+=Very High Copy Copies To 1: MAY Enamorado HOLLY R MD 03/01/19 1616: HPI History of Present Illness: Denies any other neuro complaints. No one sided weakness or difficulty speaking or swallowing. Source: patient Exam Limitations: no limitations Date seen by provider: Mar 01, 2019 Home Medications Allergies Coded Allergies: Sulfa (Sulfonamide Antibiotics) (Verified Allergy, Unknown, hives, 05/24/18) latex (Verified Allergy, Unknown, anaphylaxis, 05/24/18) vancomycin (Verified Allergy, Unknown, hives, 05/24/18) XSN-Ybdvlv-Ephqdu Hx Past Medical History Chronic Pain Blood Cancer Hypothyroidism GERD Review of Systems (CHC) Constitutional: No chills, No fever; weakness EENTM: blurred vision; No vision loss, No nose congestion, No throat pain Respiratory: no symptoms reported; No cough, No hemoptysis, No short of breath, No wheezing Cardiovascular: no symptoms reported; No chest pain, No edema, No palpitations Gastrointestinal: No abdominal pain; diarrhea (chronic - from chemotherapy); No hematemesis; loss of appetite, nausea, vomiting Genitourinary: no symptoms reported; No dysuria, No frequency, No hematuria Musculoskeletal: back pain (chronic) Skin: no symptoms reported; No lesions, No rash Psychiatric/Neurological: Headache; Denies Numbness, Denies Paresthesia, Denies Weakness Reviewed Test Results Reviewed Test Results Lab Laboratory Tests Test 03/01/19 02:22 Range/Units White Blood Count 6.4 4.3-11.0 10^3/uL Red Blood Count 3.48 L 4.35-5.85 10^6/uL Hemoglobin 11.7 11.5-16.0 G/DL Hematocrit 36 35-52 % Mean Corpuscular Volume 103 H 80-99 FL Mean Corpuscular Hemoglobin 34 25-34 PG Mean Corpuscular Hemoglobin Concent 33 32-36 G/DL Red Cell Distribution Width 12.9 10.0-14.5 % Platelet Count 107 L 130-400 10^3/uL Mean Platelet Volume 9.0 7.4-10.4 FL Neutrophils (%) (Auto) 78 H 42-75 % Lymphocytes (%) (Auto) 11 L 12-44 % Monocytes (%) (Auto) 10 0-12 % Eosinophils (%) (Auto) 1 0-10 % Basophils (%) (Auto) 0 0-10 % Neutrophils # (Auto) 5.0 1.8-7.8 X 10^3 Lymphocytes # (Auto) 0.7 L 1.0-4.0 X 10^3 Monocytes # (Auto) 0.6 0.0-1.0 X 10^3 Eosinophils # (Auto) 0.0 0.0-0.3 10^3/uL Basophils # (Auto) 0.0 0.0-0.1 10^3/uL Sodium Level 139 135-145 MMOL/L Potassium Level 3.3 L 3.6-5.0 MMOL/L Chloride Level 105 98-107 MMOL/L Carbon Dioxide Level 21 21-32 MMOL/L Anion Gap 13 5-14 MMOL/L Blood Urea Nitrogen 22 H 7-18 MG/DL Creatinine 1.56 H 0.60-1.30 MG/DL Estimat Glomerular Filtration Rate 33 BUN/Creatinine Ratio 14 Glucose Level 118 H 70-105 MG/DL Calcium Level 9.4 8.5-10.1 MG/DL Corrected Calcium 9.3 8.5-10.1 MG/DL Magnesium Level 1.9 1.6-2.4 MG/DL Total Bilirubin 0.4 0.1-1.0 MG/DL Aspartate Amino Transf (AST/SGOT) 18 5-34 U/L Alanine Aminotransferase (ALT/SGPT) 12 0-55 U/L Alkaline Phosphatase 65 40-136 U/L Total Protein 6.3 L 6.4-8.2 GM/DL Albumin 4.1 3.2-4.5 GM/DL Lipase 19 8-78 U/L Physical Exam-([facility]) Physical Exam General Appearance: WD/WN, no apparent distress HEENT: PERRL/EOMI Neck: non-tender, full range of motion, supple Respiratory: chest non-tender, lungs clear, normal breath sounds, no respirator y distress, no accessory muscle use Cardiovascular: normal peripheral pulses, regular rate, rhythm, no edema, no murmur Gastrointestinal: normal bowel sounds, soft, no organomegaly; No guarding, No rebound Back: no CVA tenderness, no vertebral tenderness Extremities: non-tender, no pedal edema, no calf tenderness, normal capillary refill Neurologic/Psychiatric: textile chemist II-XII nml as tested, no motor/sensory deficits, alert, normal mood/affect, oriented x 3 Skin: normal color, warm/dry Lymphatic: no adenopathy Assessment/Plan Assessment/Plan Admission Status: Observation (1) Head ache Status: Acute Assessment & Plan: - dehydration vs infection vs opiate withdraw, IVFs, will restart PO meds when able to take PO, Normal CT if headache continues will consider MRI in AM Qualifiers: Qualified Codes: R51 - Headache (2) Intractable nausea and vomiting Status: Acute Assessment & Plan: - IV Zofran (3) Acute kidney failure Status: Acute Assessment & Plan: - Likely 2/2 to dehydration, will continue IVFs and monitor BMP in AM (4) Hypokalemia Status: Acute (5) Chronic pain Status: Acute Qualifiers: Qualified Codes: G89.4 - Chronic pain syndrome Copy Copies To 1: Geneva Sigala APRN Supervisory-Addendum Brief Verification & Attestation Participated in pt care: history Personally performed: exam Care discussed with: Medical Student Procedures: n/a Verification and Attestation of Medical Student E/M Service A medical student performed and documented this service in my presence. I reviewed and verified all information documented by the medical student and made modifications to such information, when appropriate. I personally performed the physical exam and medical decision making. Rick Olmos, Mar 01, 2019,16:16 YOBANI NICHOLAS,MED STUDENT Mar 01, 2019 11:32 RICK OLMOS MD Mar 01, 2019 16:16
[2019-03-01 12:00] VITALS: BP 90/59
[2019-03-01] MEDS: ACETAMINOPHEN 500 MG TAB (TYLENOL) PO PRN (12:06)
[2019-03-01] MEDS ORDERED: THYR30TA2 PO (12:12)
[2019-03-01] MEDS ORDERED: APIX5TAB PO (12:20)
[2019-03-01] MEDS ORDERED: LOSA100T57 PO (12:36)
--- NOTE | 2019-03-01 14:51 | NUR ---
PT REPORTS HER HEADACHE IS BETTER AFTER RECEIVING THE TYLENOL BUT IT IS STILL THERE AND WOULD LIKE SOMETHING STRONGER THAN TYLENOL TO TAKE. DR OLMOS NOTIFIED VIA PHONE PT REQUESTING HOME MEDICATIONS TO TAKE. DR OLMOS ALSO NOTIFIED VIA PHONE. DR OLMOS WORKING ON PLACING NEW ORDERS.
--- NOTE | 2019-03-01 16:00 | NUR ---
NO NEW ORDERS IN EM[facility] FOR PT HEADACHE. DR OLMOS NOTIFIED OF PT REQUESTING PAIN MEDICATION FOR HEADACHE. ORDER RECEIVED FOR IV TORADOL 30MG ONCE.
[2019-03-01] MEDS ORDERED: ALPRAZolam 0.25 MG (XANAX) TAB PO PRN (16:15)
[2019-03-01] MEDS ORDERED: KETOROLAC 30 MG/ML VIAL IVP NR (16:15)
[2019-03-01 16:30] VITALS: BP 103/68
[2019-03-01] MEDS ORDERED: PATIENT MAY USE OWN MEDS, ALL MC SCH (16:30)
[2019-03-01] MEDS: NS IV 1000 ML 1,000 ML IV SCH (17:50)
[2019-03-01] MEDS ORDERED: GABAPENTIN 600 MG (NEURONTIN) TAB PO SCH ×3 (18:00→21:00)
[2019-03-01] MEDS: ACYCLOVIR 400 MG TABLET (ZOVIRAX) PO SCH (18:40)
[2019-03-01] MEDS: APIXABAN 5 MG (ELIQUIS) TABLET PO SCH (18:41)
[2019-03-01] MEDS: morphine ER 30 MG (MS CONTIN) TAB PO SCH (18:41)
[2019-03-01 20:00] VITALS: BP 119/73
[2019-03-01] MEDS ORDERED: APIXABAN 5 MG (ELIQUIS) TABLET PO SCH (21:00)
[2019-03-01] MEDS ORDERED: morphine ER 30 MG (MS CONTIN) TAB PO SCH (21:00)
[2019-03-02] VITALS: BP 136/83
[2019-03-02 04:00] VITALS: BP 114/75
[2019-03-02] MEDS: ACETAMINOPHEN 500 MG TAB (TYLENOL) PO PRN (06:28)
[2019-03-02] MEDS ORDERED: THYROID (ARMOUR) 60 MG TABLET PO SCH (06:30)
[2019-03-02 06:55] LABS: BASOPHILS % (AUTO) 0 % (0-10); EOSINOPHILS # (AUTO) 0.1 10^3/uL (0.0-0.3); EOSINOPHILS % (AUTO) 3 % (0-10); HEMATOCRIT 32 % (35-52); HEMOGLOBIN 10.3 G/DL (11.5-16.0); LYMPHOCYTES # (AUTO) 0.9 X 10^3 (1.0-4.0); LYMPHOCYTES % (AUTO) 26 % (12-44); MEAN CORPUSCULAR HEMOGLOBIN 34 PG (25-34); MEAN CORPUSCULAR HGB CONC 33 G/DL (32-36); MEAN CORPUSCULAR VOLUME 103 FL (80-99); MEAN PLATELET VOLUME 9.7 FL (7.4-10.4); MONOCYTES # (AUTO) 0.5 X 10^3 (0.0-1.0); MONOCYTES % (AUTO) 16 % (0-12); NEUTROPHILS # (AUTO) 1.8 X 10^3 (1.8-7.8); NEUTROPHILS % (AUTO) 55 % (42-75); PLATELET COUNT 96 10^3/uL (130-400); RED CELL DISTRIBUTION WIDTH 12.8 % (10.0-14.5); WHITE BLOOD COUNT 3.3 10^3/uL (4.3-11.0)
[2019-03-02] MEDS: NS IV 1000 ML 1,000 ML IV SCH (07:04)
[2019-03-02 07:10] LABS: CALCIUM 8.2 MG/DL (8.5-10.1); CREATININE SERUM 1.56 MG/DL (0.60-1.30); POTASSIUM 4.3 MMOL/L (3.6-5.0)
[2019-03-02 08:00] VITALS: BP 136/91
[2019-03-02] MEDS ORDERED: ROSUVASTATIN 10 MG (CRESTOR) TABLET PO SCH (09:00)
[2019-03-02] MEDS ORDERED: THYROID PORK 30 MG PO SCH (09:00)
[2019-03-02] MEDS ORDERED: PANTOPRAZOLE 40 MG (PROTONIX) TAB PO SCH (09:00)
[2019-03-02] MEDS: morphine ER 30 MG (MS CONTIN) TAB PO SCH (09:10)
[2019-03-02] MEDS: APIXABAN 5 MG (ELIQUIS) TABLET PO SCH (09:13)
[2019-03-02] MEDS: ACYCLOVIR 400 MG TABLET (ZOVIRAX) PO SCH (09:14)
--- NOTE | 2019-03-02 11:42 | NUR ---
Pt states she still has headache but much improved. She feels positive about Dr. Suggs's treatment plan and is awaiting results of her MRI. Pt"s in July of last year and she was diagnosed with Cancer in of last year. Currently her kxjsti-oa-kaf is staying with her and very supportive.Will follow for any continued care needs.
--- NOTE | 2019-03-02 11:54 | Diagnostic Imaging Report ---
PROCEDURE: MR imaging of the brain without contrast. TECHNIQUE: Multiplanar, multisequence MR imaging of the brain was performed without contrast. INDICATION: Headache and nausea. COMPARISON: There are no prior MRI examinations available for comparison. FINDINGS: The CT head exam of 03/01/2019 failed to show any sign of an acute intracranial abnormality. On the diffusion series of this exam, there is no abnormal signal arising from the brain to indicate an area of acute ischemia. There is no mass, shift of midline or hemorrhage identified either. The ventricles are not abnormally dilated. There is mild cortical atrophy present. The degree of atrophy is consistent with the patient's age. There are a few small areas of increased signal in the periventricular white matter bilaterally on the FLAIR series. These findings are nonspecific but may be related to encephalomalacia from microvascular ischemia. The sella is not enlarged and the expected carotid flow voids are evident bilaterally. The orbits are symmetrical and within normal limits. The sinuses are generally clear. The seventh and eighth nerve complexes are unremarkable. IMPRESSION: 1. There is no evidence for an acute intracranial abnormality. In particular, there is no abnormal signal arising from the brain on the diffusion series to indicate an area of acute ischemia. 2. There are mild senescent changes evident including cortical atrophy and periventricular encephalization. Dictated by: Dictated on workstation # [id number]
[2019-03-02 12:00] VITALS: BP 142/84
--- NOTE | 2019-03-02 12:05 | Diagnostic Imaging Report ---
PROCEDURE: MR imaging cervical spine without contrast. TECHNIQUE: Multiplanar, multisequence MR imaging of the cervical spine was performed without contrast. INDICATION: Severe headaches. FINDINGS: There are no prior MRI examinations available for comparison. The CT cervical spine exam of 03/01/2019 failed to show any sign of an acute bony abnormality. On the T2 reconstructed parasagittal images, the vertebral body heights and alignment are within normal limits and similar to the CT cervical spine exam. The disc spaces are fairly well maintained, although there is desiccation of the discs at every level. The thecal sac is generous. There is no evidence for spinal stenosis or nerve root encroachment at any level. There does appear to be a disc bulge centrally at the T1-T2 level. The disc flattens the ventral aspect of the thecal sac and narrows the AP diameter to 10.3 mm. The disc material may also migrate caudally along the posterior aspect of the T2 vertebra. This area was not included on the axial series, however. There is no abnormal signal arising from the cord or other vertebral bodies to indicate an acute abnormality. There is no sign of a paraspinal mass. The expected carotid and vertebral flow voids are evident bilaterally. IMPRESSION: 1. There is moderate degenerative disc disease throughout the cervical spine but there is no evidence for spinal stenosis or nerve root encroachment at any level. 2. There is a disc bulge centrally at T1-T2. This does produce borderline central stenosis. The disc material also appears to migrate caudally along the posterior aspect of T2. If further evaluation is desired, then a dedicated MRI thoracic spine exam would be recommended. 3. There is no sign of an acute bony abnormality or of a cord lesion. Dictated by: Dictated on workstation # [id number]
--- NOTE | 2019-03-02 14:16 | Discharge Summary ---
Diagnosis/Chief Complaint Date of Admission Mar 01, 2019 at 04:41 Date of Discharge 03/02/2019 Admission Diagnosis Admission Diagnosis See Problem list Discharge Diagnosis See Below Problems/Diagnosis: (1) Head ache Assessment & Plan: - dehydration vs infection vs opiate withdraw, IVFs, will restart PO meds when able to take PO, Normal CT if headache continues will consider MRI in AM 03/02: Patient still has CHAVES, improved since last night, will proceed with MRI, if normal then will d/c home today Qualifiers: Qualified Codes: R51 - Headache Status: Acute (2) Intractable nausea and vomiting Assessment & Plan: - IV Zofran Status: Resolved Resolution Date/Time: 03/02/19 @ 14:09 (3) Acute kidney failure Assessment & Plan: - Likely 2/2 to dehydration, will continue IVFs and monitor BMP in AM 03/02: Patient at baseline Cr 1.5 Status: Resolved Resolution Date/Time: 03/02/19 @ 14:09 (4) Hypokalemia Status: Acute (5) Chronic pain Qualifiers: Qualified Codes: G89.4 - Chronic pain syndrome Status: Acute Chief Complaint/HPI Chief Complaint/HPI Denies any other neuro complaints. No one sided weakness or difficulty speaking or swallowing. Discharge Summary-Simple/Stand Consultations Discharge Physical Examination Allergies: Coded Allergies: Sulfa (Sulfonamide Antibiotics) (Verified Allergy, Unknown, hives, 05/24/18) latex (Verified Allergy, Unknown, anaphylaxis, 05/24/18) vancomycin (Verified Allergy, Unknown, hives, 05/24/18) Vitals & I&Os Vital Sign - Last 12Hours Date Time Temp Pulse Resp B/P (MAP) Pulse Ox O2 Delivery O2 Flow Rate FiO2 03/02/19 12:44 36.3 03/02/19 12:00 66 18 142/84 (103) 100 Room Air Intake and Output 03/02/19 00:00 Intake Total 1360 ml Balance 1360 ml General Appearance: Alert, Oriented X3, Cooperative, No Acute Distress Respiratory: Clear to Auscultation, Normal Air Movement Cardiovascular: Regular Rate, No Murmurs Abdominal: Normal Bowel Sounds, Soft, No Tenderness, No Masses Extremities: No Edema, No Tenderness/Swelling Skin: No Rashes, No Breakdown Neuro: Normal Gait, Normal Speech, Strength at 5/5 X4 Ext, Sensation Intact, Cranial Nerves 3-12 NL Psych/Mental Status: Mental Status NL, Mood NL Hospital Course Was the Problem List Reviewed?: Yes See final discharge diagnosis. Discussion & Recommendations 68 yo F that was admitted for N/V and headache. Patient had normal CT head and neck in the ER. She was unable to keep down any of her pills for 48 hrs prior to admission. Now patient is taking her home meds w/o nausea. The headache is still present but manageable. MRI head and neck was negative. Will have close f.u with PCP Discharge Condition at discharge stable Instructions to patient/family Please see electronic discharge instructions given to patient. Discharge Medications Reviewed and agree with Discharge Medication list on patient's Discharge Instruction sheet Clinical Quality Measures DVT/VTE Risk/Contraindication: Risk Factor Score Per Nursin RFS Level Per Nursing on Admit: 4+=Very High Copy Copies To 1: MAY Enamorado HOLLY R MD Mar 02, 2019 14:15
--- NOTE | 2019-03-02 14:24 | Discharge Summary ---
Discharge [facility] Reconcile Patient Problems Problems Reviewed?: Yes Discharge Medications New, Converted or Re-Newed RX: Other Continued Medications: Acyclovir (Acyclovir) 400 Mg Tablet 400 MG PO BID, TAB LAST FILLED #180 07-10-18 Alprazolam (Alprazolam) 0.25 Mg Tablet 0.25 MG PO TID PRN for ANXIETY, TAB LAST FILLED #84 09-30-18 Amlodipine Besylate (Amlodipine Besylate) 5 Mg Tablet 5 MG PO DAILY, TAB Apixaban (Eliquis) 5 Mg Tablet 5 MG PO BID, TAB Calcium Carbonate/Vitamin D3 (Os-Alan 500+D3 Caplet) 1 Each Tablet 1 TAB PO BID, TAB Cholecalciferol (Vitamin D3) (Vitamin D3) 2,000 Unit Tablet 2000 UNIT PO BID, TAB Cyanocobalamin (Cyanocobalamin Injection) 1,000 Mcg/Ml Inj 1000 MCG IM UD, VIAL TAKES WEEKLY X 4 WEEKS THEN ONCE MONTHLY - FIRST DOSE 02-27-19 Diphenhydramine HCl (Benadryl) 25 Mg Capsule 100 MG PO HS PRN for ITCHING, CAP Docusate Sodium (Colace) 100 Mg Capsule 200 MG PO HS PRN for CONSTIPATION-1ST LINE, CAP Fexofenadine HCl (Emelia Allergy) 60 Mg Tablet 60 MG PO BID PRN for ALLERGIES, TAB Gabapentin (Gabapentin) 600 Mg Tablet 600 MG PO HS, TAB LAST FILLED #90 09-20-18 Granisetron (Sancuso) 1 Each Patch.tdwk 1 PATCH TD Romero, EA Loperamide HCl (Imodium A-D) 2 Mg Tablet PO UD PRN for DIARRHEA, TAB Losartan Potassium (Losartan Potassium) 100 Mg Tablet 50 MG PO DAILY, TAB TAKES 1/2 (100MG) TABLET Morphine Sulfate (Ms Contin) 30 Mg Tablet.er 30 MG PO BID, TAB LAST FILLED #56 01-09-19 Morphine Sulfate (Morphine Sulfate IR Tablet) 15 Mg Tablet 15 MG PO TID PRN for PAIN-SEVERE (8-10), TAB LAST FILLED #28 11-15-18 Naloxegol Oxalate (Movantik) 25 Mg Tablet 25 MG PO We, TAB DOES NOT TAKE ON TUESDAYS FOR CHEMO Ondansetron (Ondansetron Odt) 8 Mg Tab.rapdis 8 MG PO TID PRN for NAUSEA/VOMITING-1ST LINE, TAB Pantoprazole Sodium (Pantoprazole Sodium) 40 Mg Tablet.dr 40 MG PO DAILY, TAB Phenazopyridine HCl (Azo Urinary Pain Relief) 97.5 Mg Tablet 97.5 MG PO DAILY PRN for URINARY PAIN, TAB Polyethylene Glycol 3350 (Miralax) 17 Gm Powd.pack 17 GM PO Q2H PRN for CONSTIPATION-2ND LINE, EACH Potassium Chloride (Klor-Con M10) 10 Meq Tab.er.prt 10 MEQ PO BID, TAB LAST FILLED #180 10-19-18 Potassium Phosphate,Monobasic (K-Phos Original) 500 Mg Tablet.alba 1000 MG PO BID, TAB Rosuvastatin Calcium (Crestor) 10 Mg Tablet 10 MG PO DAILY, TAB Sennosides (Senokot) 8.6 Mg Tablet 8.6 MG PO DAILY PRN for CONSTIPATION-5TH LINE, TAB Temazepam (Temazepam) 15 Mg Capsule 15 MG PO HS PRN for SLEEP, CAP LAST FILLED #28 11-16-18 Thyroid,Pork (Avawam Thyroid) 30 Mg Tablet 30 MG PO DAILY, TAB Tramadol HCl (Tramadol HCl) 50 Mg Tablet 50 MG PO TID PRN for PAIN-MODERATE (5-7), TAB LAST FILLED #90 06-01-18 [Valcade] () INJ WEDNESDAY Patient Instructions Goal/Follow Up Appt: Fselvin with Geneva Sigala on Feb @ 10 AM Activity & Diet Discharge Diet: No Restrictions Activity as Tolerated: Yes Copy Copies To 1: MAY Enamorado HOLLY R MD Mar 02, 2019 14:24
[2019-03-02 15:00] VITALS: BP 142/84
== END 2019-03-02 15:05 | disposition home or self-care (01) ==
LOC: EDUNIT# 01:50 → ER FS 02:00 → 4TH 04:41
PROVIDERS: ADMIT Family Medicine; ATTEND Family Medicine
DX: T45.1X5A Adverse effect of antineoplastic and immunosuppressive drugs, initial encounter (principal); R11.2 Nausea with vomiting, unspecified; C95.90 Leukemia, unspecified not having achieved remission; N17.9 Acute kidney failure, unspecified; I10 Essential (primary) hypertension; G89.4 Chronic pain syndrome; E87.6 Hypokalemia; K21.9 Gastro-esophageal reflux disease without esophagitis; Z88.2 Allergy status to sulfonamides; Z79.899 Other long term (current) drug therapy; Z88.1 Allergy status to other antibiotic agents; Z90.49 Acquired absence of other specified parts of digestive tract; Z94.84 Stem cells transplant status; Z90.710 Acquired absence of both cervix and uterus; Z90.89 Acquired absence of other organs
CPT/HCPCS: 36415; 70450; 70551; 72125; 72141; 80048; 80053; 83690; 83735; 85025

== ENCOUNTER 2019-03-12 12:41 | Emergency (ER) | payer MEDICARE, OTHER ==
[~2019-03-12] VITALS: Ht 154.9 cm; Wt 54.0 kg
[~2019-03-12 12:41] MED LIST changes: +ALPR0.254 PO; +APIX2.5T PO; +APIX5TAB PO; +CALC1TAB29 PO; +CHOL200025 PO; +CNC1KV IM; +DIPH25CA79 PO; +DOCU-143 PO; +FEXO-14 PO; +LEVO25TA5 PO; +LOPE-134 PO; +LORA-404 PO; +MORP15TA PO; +MORP30TA60 PO; +ONDA8TAB13 PO; +PHEN97.511 PO; +POLY17PO6 PO; +ROSU10TA22 PO; +SENN-36 PO; +TEMA15CA PO; +THYR30TA2 PO; +TRM50T PO; +VALCADE INJ; +ZOLP5TAB7 PO
--- NOTE | 2019-03-12 13:27 | ED GI ---
General Chief Complaint: Abdominal/GI Problems Stated Complaint: VOMITING Nursing Triage Note: Pt presents ambulatory to ED reporting uncontrolled vomiting since Wednesday night and unable to hold meds down. Last Zofran 8 mg at 1100. Sepsis Screen: No Definite Risk History of Present Illness Date Seen by Provider: Mar 12, 2019 Time Seen by Provider: 13:00 Timing/Duration: 3-4 Days Severity/Quality: Moderate Location: Generalized Abdomen Radiation: No Radiation Modifying Factors: Improves With Eating Associated Symptoms: No Chest Pain; Nausea/Vomiting; No Syncope; Weakness Allergies and Home Medications Allergies Coded Allergies: Sulfa (Sulfonamide Antibiotics) (Verified Allergy, Unknown, hives, 05/24/18) latex (Verified Allergy, Unknown, anaphylaxis, 05/24/18) vancomycin (Verified Allergy, Unknown, hives, 05/24/18) Home Medications Acyclovir 400 Mg Tablet, 400 MG PO BID, (Reported) LAST FILLED #180 07-10-18 Alprazolam 0.25 Mg Tablet, 0.25 MG PO TID PRN for ANXIETY, (Reported) LAST FILLED #84 09-30-18 Amlodipine Besylate 5 Mg Tablet, 5 MG PO DAILY, (Reported) Apixaban 5 Mg Tablet, 5 MG PO BID, (Reported) Calcium Carbonate/Vitamin D3 1 Each Tablet, 1 TAB PO BID, (Reported) Cholecalciferol (Vitamin D3) 2,000 Unit Tablet, 2,000 UNIT PO BID, (Reported) Cyanocobalamin 1,000 Mcg/Ml Inj, 1,000 MCG IM UD, (Reported) TAKES WEEKLY X 4 WEEKS THEN ONCE MONTHLY - FIRST DOSE 02-27-19 Diphenhydramine HCl 25 Mg Capsule, 100 MG PO HS PRN for ITCHING, (Reported) Docusate Sodium 100 Mg Capsule, 200 MG PO HS PRN for CONSTIPATION-1ST LINE, (Reported) Fexofenadine HCl 60 Mg Tablet, 60 MG PO BID PRN for ALLERGIES, (Reported) Gabapentin 600 Mg Tablet, 600 MG PO HS, (Reported) LAST FILLED #90 09-20-18 Granisetron 1 Each Patch.tdwk, 1 PATCH TD Romero, (Reported) Loperamide HCl 2 Mg Tablet, PO UD PRN for DIARRHEA, (Reported) Losartan Potassium 100 Mg Tablet, 50 MG PO DAILY, (Reported) TAKES 1/2 (100MG) TABLET Morphine Sulfate 30 Mg Tablet.er, 30 MG PO BID, (Reported) LAST FILLED #56 01-09-19 Morphine Sulfate 15 Mg Tablet, 15 MG PO TID PRN for PAIN-SEVERE (8-10), (Reported) LAST FILLED #28 11-15-18 Naloxegol Oxalate 25 Mg Tablet, 25 MG PO SuMoWeThFr, (Reported) DOES NOT TAKE ON TUESDAYS FOR CHEMO Ondansetron 8 Mg Tab.rapdis, 8 MG PO TID PRN for NAUSEA/VOMITING-1ST LINE, (Reported) Pantoprazole Sodium 40 Mg Tablet.dr, 40 MG PO DAILY, (Reported) Phenazopyridine HCl 97.5 Mg Tablet, 97.5 MG PO DAILY PRN for URINARY PAIN, (Reported) Polyethylene Glycol 3350 17 Gm Powd.pack, 17 GM PO Q2H PRN for CONSTIPATION-2ND LINE, (Reported) Potassium Chloride 10 Meq Tab.er.prt, 10 MEQ PO BID, (Reported) LAST FILLED #180 10-19-18 Potassium Phosphate,Monobasic 500 Mg Tablet.alba, 1,000 MG PO BID, (Reported) Rosuvastatin Calcium 10 Mg Tablet, 10 MG PO DAILY, (Reported) Sennosides 8.6 Mg Tablet, 8.6 MG PO DAILY PRN for CONSTIPATION-5TH LINE, (Reported) Temazepam 15 Mg Capsule, 15 MG PO HS PRN for SLEEP, (Reported) LAST FILLED #28 11-16-18 Thyroid,Pork 30 Mg Tablet, 30 MG PO DAILY, (Reported) Tramadol HCl 50 Mg Tablet, 50 MG PO TID PRN for PAIN-MODERATE (5-7), (Reported) LAST FILLED #90 06-01-18 [[place]] , INJ WEDNESDAY, (Reported) Patient Home Medication List Home Medication List Reviewed: Yes Review of Systems Review of Systems Constitutional: No chills, No fever; weakness EENTM: Ear Pain; No Throat Pain Respiratory: Denies Cough, Denies Shortness of Air Cardiovascular: Denies Chest Pain, Denies Irregular Heart Rate Gastrointestinal: Denies Diarrhea; Nausea, Vomiting Genitourinary: Denies Frequency, Denies Urgency Musculoskeletal: No joint pain, No muscle pain Skin: No lesions, No rash Past [place]-Fzonls Hx Past Med/Social Hx: Reviewed Nursing Past Med/Soc Hx Patient Social History Alcohol Use: Denies Use Recreational Drug Use: No 2nd Hand Smoke Exposure: No Recent Foreign Travel: No Contact w/Someone Who Travel: No Recent Infectious Disease Expo: No Recent Hopitalizations: No Physical Abuse: No Sexual Abuse: No Mistreated: No Fear: No Immunizations Up To Date Date of Pneumonia Vaccine: Sep 29, 2017 Date of Influenza Vaccine: Nov 29, 2018 Seasonal Allergies Seasonal Allergies: No Past Medical History Surgeries: Yes (colon resection; stem cell transplant) Appendectomy, Bowel Surgery, Gallbladder, Hysterectomy Respiratory: No Cardiac: Yes Hypertension Neurological: No Genitourinary: Yes Bladder Infection Gastrointestinal: No Musculoskeletal: No Endocrine: No HEENT: No Cancer: Yes (blood cancer; light chain proteins) Psychosocial: No Integumentary: No Blood Disorders: Yes Family Medical History Cancer, Stroke Physical Exam Vital Signs Vital Signs - First Documented 03/12/19 12:50 Temp 36.6 Pulse 80 Resp 16 B/P (MAP) 130/78 (95) Pulse Ox 99 O2 Delivery Room Air Capillary Refill : Less Than 3 Seconds Height/Weight/BMI Height: 5'1.00" Weight: 127lbs. oz. 57.524505nl; 22.00 BMI Method:Stated General Appearance: WD/WN, mild distress HEENT: PERRL/EOMI, normal ENT inspection, TMs normal, pharynx normal Neck: full range of motion, normal inspection Respiratory: lungs clear, normal breath sounds Cardiovascular: regular rate, rhythm, no murmur Gastrointestinal: non tender, soft; No distended Extremities: normal range of motion, normal inspection Neurologic/Psychiatric: no motor/sensory deficits, normal mood/affect, oriented x 3 Skin: normal color Focused Exam Lactate Level 03/12/19 13:40: Lactic Acid Level 0.95 Lactic Acid Level Laboratory Tests Test 03/12/19 13:40 Lactic Acid Level 0.95 MMOL/L (0.50-2.00) Progress/Results/Core Measures Results/Orders Lab Results Laboratory Tests Test 03/12/19 13:40 03/12/19 14:25 Range/Units White Blood Count 5.5 4.3-11.0 10^3/uL Red Blood Count 3.68 L 4.35-5.85 10^6/uL Hemoglobin 12.7 11.5-16.0 G/DL Hematocrit 37 35-52 % Mean Corpuscular Volume 100 H 80-99 FL Mean Corpuscular Hemoglobin 35 H 25-34 PG Mean Corpuscular Hemoglobin Concent 35 32-36 G/DL Red Cell Distribution Width 12.5 10.0-14.5 % Platelet Count 154 130-400 10^3/uL Mean Platelet Volume 10.1 7.4-10.4 FL Neutrophils (%) (Auto) 78 H 42-75 % Lymphocytes (%) (Auto) 14 12-44 % Monocytes (%) (Auto) 7 0-12 % Eosinophils (%) (Auto) 0 0-10 % Basophils (%) (Auto) 0 0-10 % Neutrophils # (Auto) 4.3 1.8-7.8 X 10^3 Lymphocytes # (Auto) 0.8 L 1.0-4.0 X 10^3 Monocytes # (Auto) 0.4 0.0-1.0 X 10^3 Eosinophils # (Auto) 0.0 0.0-0.3 10^3/uL Basophils # (Auto) 0.0 0.0-0.1 10^3/uL Neutrophils % (Manual) 75 % Lymphocytes % (Manual) 17 % Monocytes % (Manual) 7 % Eosinophils % (Manual) 0 % Basophils % (Manual) 0 % Band Neutrophils 1 % Blood Morphology Comment NORMAL Sodium Level 140 135-145 MMOL/L Potassium Level 3.8 3.6-5.0 MMOL/L Chloride Level 105 98-107 MMOL/L Carbon Dioxide Level 22 21-32 MMOL/L Anion Gap 13 5-14 MMOL/L Blood Urea Nitrogen 21 H 7-18 MG/DL Creatinine 1.54 H 0.60-1.30 MG/DL Estimat Glomerular Filtration Rate 34 BUN/Creatinine Ratio 14 Glucose Level 109 H 70-105 MG/DL Lactic Acid Level 0.95 0.50-2.00 MMOL/L Calcium Level 10.1 8.5-10.1 MG/DL Corrected Calcium 9.8 8.5-10.1 MG/DL Total Bilirubin 0.7 0.1-1.0 MG/DL Aspartate Amino Transf (AST/SGOT) 14 5-34 U/L Alanine Aminotransferase (ALT/SGPT) 9 0-55 U/L Alkaline Phosphatase 66 40-136 U/L Total Protein 6.6 6.4-8.2 GM/DL Albumin 4.4 3.2-4.5 GM/DL Urine Color YELLOW Urine Clarity CLEAR Urine pH 8.0 5-9 Urine Specific [place] 1.015 L 1.016-1.022 Urine Protein NEGATIVE NEGATIVE Urine Glucose (UA) NEGATIVE NEGATIVE Urine Ketones NEGATIVE NEGATIVE Urine Nitrite NEGATIVE NEGATIVE Urine Bilirubin NEGATIVE NEGATIVE Urine Urobilinogen 0.2 < = 1.0 MG/DL Urine Leukocyte Esterase NEGATIVE NEGATIVE Urine RBC (Auto) NEGATIVE NEGATIVE Urine RBC NONE /HPF Urine WBC NONE /HPF Urine Squamous Epithelial Cells 5-10 /HPF Urine Crystals PRESENT H /LPF Urine Amorphous Sediment FEW DIANA PHOSPHATE H /LPF Urine Bacteria FEW H /HPF Urine Casts NONE /LPF Urine Mucus NEGATIVE /LPF Urine Culture Indicated NO My Orders Orders - HOOD RODRIGEZ JR, MD Cbc And Manual Diff (03/12/19 13:20) Comprehensive Metabolic Panel (03/12/19 13:20) Urinalysis (03/12/19 13:20) Lactic Acid Analyzer (03/12/19 13:20) Ns Iv 1000 Ml (Sodium Chloride 0.9%) (03/12/19 13:30) Promethazine Injection (Phenergan Injec (03/12/19 13:30) Ondansetron Injection (Zofran Injectio (03/12/19 15:15) Medications Given in ED Current Medications Medications Dose Ordered Sig/Eligio Route Start Time Stop Time Status Last Admin Dose Admin Ondansetron HCl 4 mg ONCE ONCE IVP 03/12/19 15:15 03/12/19 15:16 DC 03/12/19 15:09 4 MG Promethazine HCl 25 mg ONCE ONCE IVP 03/12/19 13:30 03/12/19 13:31 DC 03/12/19 13:46 25 MG Vital Signs/I&O 03/12/19 12:50 Temp 36.6 Pulse 80 Resp 16 B/P (MAP) 130/78 (95) Pulse Ox 99 O2 Delivery Room Air Blood Pressure Mean: 95 Progress Progress Note : Time: 15:43 Progress Note Patient better with promethazine and the Zofran and the IV fluids this time lab urine looked good don't see any signs of obstruction did not feel like this is a gastroenteritis Lali is developed more dehydrated than she thought will use Zofran at home and follow over the next 24-48 hours recheck if problems or see her primary care doc first week Departure Impression Primary Impression: Nausea and vomiting Qualified Codes: R11.2 - Nausea with vomiting, unspecified Disposition: HOME, SELF-CARE Condition: Stable Departure-Patient Inst. Referrals: ANA LUISA BARRAGAN APRN (PCP) Primary Care Physician [facility] (Family) Primary Care Physician Patient Instructions: Nausea and Vomiting, Adult HOOD RODRIGEZ JR, MD Mar 12, 2019 13:26
[2019-03-12] MEDS ORDERED: PROMETHAZINE INJ 25 MG/ML (PHENERGAN) AMP IVP ONE (13:30)
[2019-03-12] MEDS ORDERED: NS IV 1000 ML 1,000 ML IV SCH (13:30)
--- NOTE | 2019-03-12 13:40 | NUR ---
Pt port was accessed and labs drawn. Pt was given call light to notify if any needs or problems. Pt to alert staff when needs to void for UA collection.
--- NOTE | 2019-03-12 13:46 | NUR ---
Pt's fluids began at this time. Pt has been advised part of the Phenergan placed into IV bag for appropriate dilution. Pt given increments of 6.25 diluted IVP x 2
[2019-03-12 13:50] LABS: BASOPHILS % (AUTO) 0 % (0-10); EOSINOPHILS % (AUTO) 0 % (0-10); HEMATOCRIT 37 % (35-52); HEMOGLOBIN 12.7 G/DL (11.5-16.0); LYMPHOCYTES % (AUTO) 14 % (12-44); MEAN CORPUSCULAR HEMOGLOBIN 35 PG (25-34); MEAN CORPUSCULAR HGB CONC 35 G/DL (32-36); MEAN CORPUSCULAR VOLUME 100 FL (80-99); MEAN PLATELET VOLUME 10.1 FL (7.4-10.4); MONOCYTES % (AUTO) 7 % (0-12); NEUTROPHILS % (AUTO) 78 % (42-75); PLATELET COUNT 154 10^3/uL (130-400); RED CELL DISTRIBUTION WIDTH 12.5 % (10.0-14.5); WHITE BLOOD COUNT 5.5 10^3/uL (4.3-11.0)
[2019-03-12 13:51] LABS: LYMPHOCYTES # (AUTO) 0.8 X 10^3 (1.0-4.0); MONOCYTES # (AUTO) 0.4 X 10^3 (0.0-1.0); NEUTROPHILS # (AUTO) 4.3 X 10^3 (1.8-7.8)
[2019-03-12 14:08] LABS: POTASSIUM 3.8 MMOL/L (3.6-5.0)
[2019-03-12 14:09] LABS: ALBUMIN 4.4 GM/DL (3.2-4.5); BILIRUBIN,TOTAL 0.7 MG/DL (0.1-1.0); CALCIUM 10.1 MG/DL (8.5-10.1); CREATININE SERUM 1.54 MG/DL (0.60-1.30); TOTAL PROTEIN 6.6 GM/DL (6.4-8.2)
[2019-03-12 14:22] LABS: BAND NEUTROPHILS 1 %; BASOPHILS % (MANUAL) 0 %; EOSINOPHILS % (MANUAL) 0 %; LYMPHOCYTES % (MANUAL) 17 %; MONOCYTES % (MANUAL) 7 %; NEUTROPHILS % (MANUAL) 75 %
[2019-03-12 14:23] LABS: RBC MORPH NORMAL
--- NOTE | 2019-03-12 14:25 | NUR ---
Assisted patient up to bedside commode as requested and UA collected.
[2019-03-12 14:41] LABS: CLARITY,URINE CLEAR; COLOR,URINE YELLOW; GLUCOSE, URINE (UA) NEGATIVE (NEGATIVE); KETONES,URINE NEGATIVE (NEGATIVE); PROTEIN,URINE NEGATIVE (NEGATIVE)
[2019-03-12 14:42] LABS: AMORPHOUS SEDIMENT,UR FEW AMOR PHOSPHATE /LPF; BACTERIA,URINE FEW /HPF; BILIRUBIN,URINE NEGATIVE (NEGATIVE); LEUKOCYTE ESTERASE ,URINE NEGATIVE (NEGATIVE); NITRITE,URINE NEGATIVE (NEGATIVE)
[2019-03-12] MEDS ORDERED: ONDANSETRON 4 MG/2 ML (SDV) Z0FRAN IVP ONE (15:15)
[2019-03-12 16:00] VITALS: BP 125/71
== END 2019-03-12 16:00 | disposition home or self-care (01) ==
LOC: EDUNIT# 12:41 → ER FS 12:43
DX: R11.2 Nausea with vomiting, unspecified (principal); I10 Essential (primary) hypertension; Z88.2 Allergy status to sulfonamides; Z91.040 Latex allergy status; Z88.1 Allergy status to other antibiotic agents; Z79.01 Long term (current) use of anticoagulants; Z94.84 Stem cells transplant status; Z85.79 Personal history of other malignant neoplasms of lymphoid, hematopoietic and related tissues; Z90.49 Acquired absence of other specified parts of digestive tract
CPT/HCPCS: 36415; 80053; 81000; 83605; 85007; 85027; 96374; 96375

== ENCOUNTER 2019-06-21 11:32 | Emergency (ER) | payer MEDICARE, OTHER ==
[~2019-06-21] VITALS: Ht 154.9 cm; Wt 56.8 kg
[2019-06-21] MEDS ORDERED: NS IV 1000 ML 1,000 ML IV SCH (12:05)
--- NOTE | 2019-06-21 12:12 | ED GI ---
General Chief Complaint: Abdominal/GI Problems Stated Complaint: NAUSEA; VOMITING; DIARRHEA Source of Information: Patient Exam Limitations: No Limitations History of Present Illness Date Seen by Provider: June 21, 2019 Time Seen by Provider: 12:09 Initial Comments Patient complains of 2 days of nausea vomiting diarrhea which is typical for her she has multiple myeloma ongoing injections of infusion center every other week she's had no fever no travel no cough no shortness of breath no sore throat Timing/Duration: 1-2 Days Severity/Quality: Mild Radiation: No Radiation Activities at Onset: None Associated Symptoms: No Back Pain, No Chest Pain, No Diaphoresis, No Fever/Chills; Nausea/Vomiting Allergies and Home Medications Allergies Coded Allergies: Sulfa (Sulfonamide Antibiotics) (Verified Allergy, Unknown, hives, 05/24/18) latex (Verified Allergy, Unknown, anaphylaxis, 05/24/18) vancomycin (Verified Allergy, Unknown, hives, 05/24/18) Home Medications Acyclovir 400 Mg Tablet, 400 MG PO BID, (Reported) LAST FILLED #180 07-10-18 Alprazolam 0.25 Mg Tablet, 0.25 MG PO TID PRN for ANXIETY, (Reported) LAST FILLED #84 09-30-18 Amlodipine Besylate 5 Mg Tablet, 5 MG PO DAILY, (Reported) Apixaban 5 Mg Tablet, 5 MG PO BID, (Reported) Calcium Carbonate/Vitamin D3 1 Each Tablet, 1 TAB PO BID, (Reported) Cholecalciferol (Vitamin D3) 2,000 Unit Tablet, 2,000 UNIT PO BID, (Reported) Cyanocobalamin 1,000 Mcg/Ml Inj, 1,000 MCG IM UD, (Reported) TAKES WEEKLY X 4 WEEKS THEN ONCE MONTHLY - FIRST DOSE 02-27-20 Diphenhydramine HCl 25 Mg Capsule, 100 MG PO HS PRN for ITCHING, (Reported) Docusate Sodium 100 Mg Capsule, 200 MG PO HS PRN for CONSTIPATION-1ST LINE, (Reported) Fexofenadine HCl 60 Mg Tablet, 60 MG PO BID PRN for ALLERGIES, (Reported) Gabapentin 600 Mg Tablet, 600 MG PO HS, (Reported) LAST FILLED #90 09-20-18 Granisetron 1 Each Patch.tdwk, 1 PATCH TD Romero, (Reported) Loperamide HCl 2 Mg Tablet, PO UD PRN for DIARRHEA, (Reported) Losartan Potassium 100 Mg Tablet, 50 MG PO DAILY, (Reported) TAKES 1/2 (100MG) TABLET Morphine Sulfate 30 Mg Tablet.er, 30 MG PO BID, (Reported) LAST FILLED #56 01-09-19 Morphine Sulfate 15 Mg Tablet, 15 MG PO TID PRN for PAIN-SEVERE (8-10), (Reported) LAST FILLED #28 11-15-18 Naloxegol Oxalate 25 Mg Tablet, 25 MG PO SuMoWe, (Reported) DOES NOT TAKE ON TUESDAYS FOR CHEMO Ondansetron 8 Mg Tab.rapdis, 8 MG PO TID PRN for NAUSEA/VOMITING-1ST LINE, (Reported) Pantoprazole Sodium 40 Mg Tablet.dr, 40 MG PO DAILY, (Reported) Phenazopyridine HCl 97.5 Mg Tablet, 97.5 MG PO DAILY PRN for URINARY PAIN, (Reported) Polyethylene Glycol 3350 17 Gm Powd.pack, 17 GM PO Q2H PRN for CONSTIPATION-2ND LINE, (Reported) Potassium Chloride 10 Meq Tab.er.prt, 10 MEQ PO BID, (Reported) LAST FILLED #180 10-19-18 Potassium Phosphate,Monobasic 500 Mg Tablet.alba, 1,000 MG PO BID, (Reported) Rosuvastatin Calcium 10 Mg Tablet, 10 MG PO DAILY, (Reported) Sennosides 8.6 Mg Tablet, 8.6 MG PO DAILY PRN for CONSTIPATION-5TH LINE, (Reported) Temazepam 15 Mg Capsule, 15 MG PO HS PRN for SLEEP, (Reported) LAST FILLED #28 11-16-18 Thyroid,Pork 30 Mg Tablet, 30 MG PO DAILY, (Reported) Tramadol HCl 50 Mg Tablet, 50 MG PO TID PRN for PAIN-MODERATE (5-7), (Reported) LAST FILLED #90 06-01-18 [[place]] , INJ WEDNESDAY, (Reported) Patient Home Medication List Home Medication List Reviewed: Yes Review of Systems Review of Systems Constitutional: chills; No fever, No weakness EENTM: No Symptoms Reported Respiratory: No Symptoms Reported Cardiovascular: No Symptoms Reported Gastrointestinal: See HPI Genitourinary: No Symptoms Reported Musculoskeletal: no symptoms reported Skin: no symptoms reported Psychiatric/Neurological: No Symptoms Reported Endocrine: No Symptoms Reported Past [id number]-Aeqndx Hx Patient Social History Alcohol Use: Denies Use Recreational Drug Use: No 2nd Hand Smoke Exposure: No Recent Hopitalizations: No Physical Abuse: No Sexual Abuse: No Mistreated: No Fear: No Immunizations Up To Date Date of Pneumonia Vaccine: Sep 29, 2017 Date of Influenza Vaccine: Nov 29, 2018 Seasonal Allergies Seasonal Allergies: No Past Medical History Surgeries: Yes (colon resection; stem cell transplant) Appendectomy, Bowel Surgery, Gallbladder, Hysterectomy Respiratory: No Cardiac: Yes Hypertension Neurological: No Genitourinary: Yes Bladder Infection Gastrointestinal: No Musculoskeletal: No Endocrine: No HEENT: No Cancer: Yes (blood cancer; light chain proteins) Psychosocial: No Integumentary: No Blood Disorders: Yes Family Medical History Cancer, Stroke Physical Exam Vital Signs Vital Signs - First Documented 06/21/19 11:57 Temp 36.3 Pulse 71 Resp 16 B/P (MAP) 131/74 (93) Pulse Ox 100 O2 Delivery Room Air Capillary Refill : Height/Weight/BMI Height: 5'1.00" Weight: 127lbs. oz. 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 nml as tested, no motor/sensory deficits, alert Skin: normal color, warm/dry Focused Exam Lactate Level 06/21/19 11:50: Lactic Acid Level 1.16 Lactic Acid Level Laboratory Tests Test 06/21/19 11:50 Lactic Acid Level 1.16 MMOL/L (0.50-2.00) Progress/Results/Core Measures Results/Orders Lab Results Laboratory Tests Test 06/21/19 11:50 06/21/19 12:45 Range/Units White Blood Count 5.8 4.3-11.0 10^3/uL Red Blood Count 3.68 L 4.35-5.85 10^6/uL Hemoglobin 12.4 11.5-16.0 G/DL Hematocrit 36 35-52 % Mean Corpuscular Volume 98 80-99 FL Mean Corpuscular Hemoglobin 34 25-34 PG Mean Corpuscular Hemoglobin Concent 34 32-36 G/DL Red Cell Distribution Width 12.6 10.0-14.5 % Platelet Count 151 130-400 10^3/uL Mean Platelet Volume 9.9 7.4-10.4 FL Neutrophils (%) (Auto) 77 H 42-75 % Lymphocytes (%) (Auto) 15 12-44 % Monocytes (%) (Auto) 7 0-12 % Eosinophils (%) (Auto) 0 0-10 % Basophils (%) (Auto) 0 0-10 % Neutrophils # (Auto) 4.5 1.8-7.8 X 10^3 Lymphocytes # (Auto) 0.9 L 1.0-4.0 X 10^3 Monocytes # (Auto) 0.4 0.0-1.0 X 10^3 Eosinophils # (Auto) 0.0 0.0-0.3 10^3/uL Basophils # (Auto) 0.0 0.0-0.1 10^3/uL Sodium Level 141 135-145 MMOL/L Potassium Level 3.8 3.6-5.0 MMOL/L Chloride Level 107 98-107 MMOL/L Carbon Dioxide Level 22 21-32 MMOL/L Anion Gap 12 5-14 MMOL/L Blood Urea Nitrogen 17 7-18 MG/DL Creatinine 1.36 H 0.60-1.30 MG/DL Estimat Glomerular Filtration Rate 39 BUN/Creatinine Ratio 13 Glucose Level 121 H 70-105 MG/DL Lactic Acid Level 1.16 0.50-2.00 MMOL/L Calcium Level 10.0 8.5-10.1 MG/DL Corrected Calcium 9.8 8.5-10.1 MG/DL Total Bilirubin 0.6 0.1-1.0 MG/DL Aspartate Amino Transf (AST/SGOT) 15 5-34 U/L Alanine Aminotransferase (ALT/SGPT) 9 0-55 U/L Alkaline Phosphatase 84 40-136 U/L Total Protein 6.5 6.4-8.2 GM/DL Albumin 4.2 3.2-4.5 GM/DL Urine Color YELLOW Urine Clarity CLEAR Urine pH 8.5 5-9 Urine Specific [place] 1.020 1.016-1.022 Urine Protein 1+ H NEGATIVE Urine Glucose (UA) NEGATIVE NEGATIVE Urine Ketones TRACE H NEGATIVE Urine Nitrite NEGATIVE NEGATIVE Urine Bilirubin NEGATIVE NEGATIVE Urine Urobilinogen 0.2 < = 1.0 MG/DL Urine Leukocyte Esterase NEGATIVE NEGATIVE Urine RBC (Auto) NEGATIVE NEGATIVE Urine RBC NONE /HPF Urine WBC 0-2 /HPF Urine Squamous Epithelial Cells 0-2 /HPF Urine Crystals NONE /LPF Urine Bacteria NEGATIVE /HPF Urine Casts NONE /LPF Urine Mucus NONE /LPF Urine Culture Indicated NO My Orders Orders - MEAGHANBRITTANY B DO Cbc With Automated Diff (06/21/19 12:05) Comprehensive Metabolic Panel (06/21/19 12:05) Blood Culture (06/21/19 12:05) Urinalysis (06/21/19 12:05) Urine Culture (06/21/19 12:05) Ed Iv/Invasive Line Start (06/21/19 12:05) Lactic Acid Analyzer (06/21/19 12:05) Ns Iv 1000 Ml (Sodium Chloride 0.9%) (06/21/19 12:05) Ondansetron Injection (Zofran Injectio (06/21/19 12:15) C Difficile Ag + Toxin A/B. (06/21/19 12:05) Morphine Injection (Morphine Injection (06/21/19 13:26) Morphine Injection (Morphine Injection (06/21/19 13:18) Medications Given in ED Current Medications Medications Dose Ordered Sig/Eligio Route Start Time Stop Time Status Last Admin Dose Admin Ondansetron HCl 8 mg ONCE ONCE IVP 06/21/19 12:15 06/21/19 12:16 DC 06/21/19 12:23 8 MG Vital Signs/I&O 06/21/19 11:57 Temp 36.3 Pulse 71 Resp 16 B/P (MAP) 131/74 (93) Pulse Ox 100 O2 Delivery Room Air Progress Progress Note : Progress Note Patient with history of multiple myeloma and recurrent L bouts of nausea vomiting and diarrhea with dehydration patient states he symptoms are typical how she presents today with no fever differential includes sepsis I disturbance dehydration plan and access her port IV fluids laboratory sepsis screening all is well discharged home for follow-up Departure Communication (Admissions) [id number] reevaluation patient is comfortable feeling better agreeable to be discharged home Impression Primary Impression: Nausea and vomiting Qualified Codes: R11.2 - Nausea with vomiting, unspecified Additional Impression: Diarrhea Qualified Codes: R19.7 - Diarrhea, unspecified Disposition: HOME, SELF-CARE Condition: Improved Departure-Patient Inst. Referrals: ANA LUISA BARRAGAN APRN (PCP) Primary Care Physician Or 2 days as needed [facility] (Family) Primary Care Physician Patient Instructions: Dehydration, Adult (DC) BRITTANY HARDING DO June 21, 2019 12:11
[2019-06-21] MEDS ORDERED: ONDANSETRON 4 MG/2 ML (SDV) Z0FRAN IVP ONE (12:15)
[2019-06-21 12:22] LABS: HEMATOCRIT 36 % (35-52); HEMOGLOBIN 12.4 G/DL (11.5-16.0); MEAN CORPUSCULAR HEMOGLOBIN 34 PG (25-34); MEAN CORPUSCULAR HGB CONC 34 G/DL (32-36); MEAN CORPUSCULAR VOLUME 98 FL (80-99); MEAN PLATELET VOLUME 9.9 FL (7.4-10.4); NEUTROPHILS % (AUTO) 77 % (42-75); PLATELET COUNT 151 10^3/uL (130-400); RED CELL DISTRIBUTION WIDTH 12.6 % (10.0-14.5); WHITE BLOOD COUNT 5.8 10^3/uL (4.3-11.0)
[2019-06-21 12:23] LABS: BASOPHILS % (AUTO) 0 % (0-10); EOSINOPHILS % (AUTO) 0 % (0-10); LYMPHOCYTES # (AUTO) 0.9 X 10^3 (1.0-4.0); LYMPHOCYTES % (AUTO) 15 % (12-44); MONOCYTES # (AUTO) 0.4 X 10^3 (0.0-1.0); MONOCYTES % (AUTO) 7 % (0-12); NEUTROPHILS # (AUTO) 4.5 X 10^3 (1.8-7.8)
--- OUTSIDE RECORDS SUMMARY | 2019-06-21 12:30 | XMS REPORT | Continuity of Care Document ---
Author Organization Unknown Address Unknown Phone Unavailable Allergies Active Description Code Type Severity Reaction Onset Reported/Identified Relationship to Patient Clinical Status Yes LATEX, NATURAL RUBBER SEVERE ANAPHYLACTIC SHOCK Yes LATEX, NATURAL RUBBER SEVERE SEVERE Yes SULFA (SULFONAMIDE ANTIBIOTICS) MILD DERMATOLOGICAL - HIV Yes SULFA (SULFONAMIDE ANTIBIOTICS) MILD MILD Yes VANCOMYCIN UNKNOWN UNKNOWN Yes latex [id number] Drug Allergy Unknown anaphylaxis 05/24/2018 Yes Sulfa (Sulfonamide Antibiotics) [id number] Drug Allergy Unknown hives 019 Yes vancomycin [id number] Drug Allerg y Unknown hives 05/24/2018 Medications Medication Packaging Start Date St op Date Route Dosage Sig NORMAL SALINE 1000CC IV BAG INJ 0.9 % (NS 1000CC IV BAG) ml 11/26/2016 11/27/2016 CONTINUOUSEVERY 0 Hour CEFAZOLIN VIAL INJ 1 GM (ANCEF) GM 11/26/2016 11/26/2016 ONCE&0733 PROMETHAZINE VIAL INJ 25 MG/CC (PHENERGAN VIAL) MG 07/30/2018 07/30/2018 PRN ONCE NORMAL SALINE 1000CC IV BAG INJ 0.9 % (NS 1000CC IV BAG) ml 07/30/2018 07/30/2018 ONCE&1153 Normal Saline 1000cc W/KCl 20mEq ml 08/10/2018 08/10/2018 ONCE&0830 Normal Saline 1000cc W/KCl 20mEq ml 08/25/2018 09/01/2018 CONTINUOUSEVERY 0 Hour FENTANYL INJ 100 MCG/2CC VIAL MCG 09/11/2018 09/11/2018 ONCE&1650 Normal Saline 1000cc W/KCl 20mEq ml 09/22/2018 09/22/2018 ONCE&0657 Normal Saline 1000cc W/KCl 20mEq ml 09/22/2018 09/22/2018 ONCE&0701 Problems Date Dx Coded Attending Type Code Diagnosis Diagnosed By 11/26/2016 TRAM AVILES 453.81 ACUTE VENOUS EMBOLISM AND THROMBOSIS OF SUPERFICIAL VEINS OF UPPER EXTREMITY 11/26/2016 TRAM AVILES I82.612 ACUTE EMBOLISM AND THOMBOS OF SUPERFIC VEINS OF L UP EXTREM 05/24/2018 MENON DO, ANA Ot C95.00 ACUTE LEUKEMIA OF UNSP CELL TYPE NOT [facility] 05/24/2018 MENON DO, ANA Ot R10.9 UNSPECIFIED ABDOMINAL PAIN 05/24/2018 MENON DO, ANA Ot R11.2 NAUSEA WITH VOMITING, UNSPECIFIED 05/24/2018 MENON DO, ANA Ot Z88.1 ALLERGY STATUS TO OTHER ANTIBIOTIC AGENT 05/24/2018 MENON DO, ANA Ot Z88.2 ALLERGY STATUS TO SULFONAMIDES STATUS 05/24/2018 MENON DO, ANA Ot Z91.040 LATEX ALLERGY STATUS 05/24/2018 MENON DO, ANA Ot Z92.21 PERSONAL HISTORY OF ANTINEOPLASTIC CHEMO 05/26/2018 MENON DO, ANA Ot C95.00 ACUTE LEUKEMIA OF UNSP CELL TYPE NOT [facility] 05/26/2018 MENON DO, ANA Ot R10.9 UNSPECIFIED ABDOMINAL PAIN 05/26/2018 MENON DO, ANA Ot R11.2 NAUSEA WITH VOMITING, UNSPECIFIED 05/26/2018 DURANGO DO, ANA Ot Z88.1 ALLERGY STATUS TO OTHER ANTIBIOTIC AGENT 05/26/2018 MENON DO, ANA Ot Z88.2 ALLERGY STATUS TO SULFONAMIDES STATUS 05/26/2018 MENON DO, ANA Ot Z91.040 LATEX ALLERGY STATUS 05/26/2018 DURANGO DO, ANA Ot Z92.21 PERSONAL HISTORY OF ANTINEOPLASTIC CHEMO 05/26/2018 MENON DO, ANA Ot C95.00 ACUTE LEUKEMIA OF UNSP CELL TYPE NOT [facility] 05/26/2018 MENON DO, ANA Ot R10.9 UNSPECIFIED ABDOMINAL PAIN 05/26/2018 MENON DO, ANA Ot R11.2 NAUSEA WITH VOMITING, UNSPECIFIED 05/26/2018 DURANGO DO, ANA Ot Z88.1 ALLERGY STATUS TO OTHER ANTIBIOTIC AGENT 05/26/2018 MENON DO, ANA Ot Z88.2 ALLERGY STATUS TO SULFONAMIDES STATUS 05/26/2018 MENON DO, ANA Ot Z91.040 LATEX ALLERGY STATUS 05/26/2018 DURANGO DO, ANA Ot Z92.21 PERSONAL HISTORY OF ANTINEOPLASTIC CHEMO 07/05/2018 RENAN LOVETT DO Ot I1 0 ESSENTIAL (PRIMARY) HYPERTENSION 07/05/2018 RENAN LOVETT DO Ot R11.2 NAUSEA WITH VOMITING, UNSPECIFIED 07/05/2018 RENAN LOVETT DO, Ot Z86.2 PRSNL HISTORY OF DIS OF THE BLD/BLD-FORM 07/05/2018 RENAN LOVETT DO, Ot Z87.440 PERSONAL HISTORY OF URINARY (TRACT) INFE 07/05/2018 RENAN LOVETT DO, Ot Z87.448 PERSONAL HISTORY OF OTHER DISEASES OF UR 07/05/2018 RENAN LOVETT DO, Ot Z88.1 ALLERGY STATUS TO OTHER ANTIBIOTIC AGENT 07/05/2018 RENAN LOVETT DO, Ot Z88.2 ALLERGY STATUS TO SULFONAMIDES STATUS 07/05/2018 RENAN LOVETT DO, Ot Z90.49 ACQUIRED ABSENCE OF OTHER SPECIFIED PART 07/05/2018 RENAN LOVETT DO, Ot Z90.710 ACQUIRED ABSENCE OF BOTH CERVIX AND UTER 07/05/2018 RENAN LOVETT DO, Ot Z91.040 LATEX ALLERGY STATUS 07/05/2018 RENAN LOVETT DO, Ot Z94.84 STEM CELLS TRANSPLANT STATUS 07/08/2018 RENAN LOVETT DO, Ot I1 0 ESSENTIAL (PRIMARY) HYPERTENSION 07/08/2018 RENAN LOVETT DO, Ot R11.2 NAUSEA WITH VOMITING, UNSPECIFIED 07/08/2018 RENAN LOVETT DO, Ot Z86.2 PRSNL HISTORY OF DIS OF THE BLD/BLD-FORM 07/08/2018 RENAN LOVETT DO, Ot Z87.440 PERSONAL HISTORY OF URINARY (TRACT) INFE 07/08/2018 RENAN LOVETT DO, Ot Z87.448 PERSONAL HISTORY OF OTHER DISEASES OF UR 07/08/2018 RENAN LOVETT DO, Ot Z88.1 ALLERGY STATUS TO OTHER ANTIBIOTIC AGENT 07/08/2018 RENAN LOVETT DO, Ot Z88.2 ALLERGY STATUS TO SULFONAMIDES STATUS 07/08/2018 RENAN LOVETT DO, Ot Z90.49 ACQUIRED ABSENCE OF OTHER SPECIFIED PART 07/08/2018 RENAN LOVETT DO, Ot Z90.710 ACQUIRED ABSENCE OF BOTH CERVIX AND UTER 07/08/2018 RENAN LOVETT DO, Ot Z91.040 LATEX ALLERGY STATUS 07/08/2018 RENAN LOVETT DO, Ot Z94.84 STEM CELLS TRANSPLANT STATUS 07/30/2018 Jp Vernon 276.51 DEHYDRATION 07/30/2018 Jp Vernon 787.01 NAUSEA WITH VOMITING 07/30/2018 Jp Vernon E86.0 DEHYDRATION 07/30/2018 MikaelaelijahJp W R11.2 NAUSEA WITH VOMITING, UNSPECIFIED 07/30/2018 Janeen Jp W V87.41 PERSONAL HISTORY OF ANTINEOPLASTIC CHEMOTHERAPY 07/30/2018 Jp Vernon Z92.21 PERSONAL HISTORY OF ANTINEOPLASTIC CHEMOTHERAPY 08/10/2018 Antoni Burks V58.81 ENCOUNTER FOR FITTING AND ADJUSTMENT OF VASCULAR CATHETER 08/10/2018 VitaliyAntoni W Z45.2 ENCOUNTER FOR ADJUSTMENT AND MANAGEMENT OF VAD 08/25/2018 Antoni Burks W 276.50 VOLUME DEPLETION, UNSPECIFIED 08/25/2018 Antoni Burks W 276.8 HYPOPOTASSEMIA 08/25/2018 Antoni Burks W 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 08/25/2018 Antoni Burks W D61.09 OTHER CONSTITUTIONAL APLASTIC ANEMIA 08/25/2018 Antoni Burks W E86.9 VOLUME DEPLETION, UNSPECIFIED 08/25/2018 Antoni Burks W E87.6 HYPOKALEMIA 09/08/2018 Antoni Burks W 276.50 VOLUME DEPLETION, UNSPECIFIED 09/08/2018 BrownAntoni W E86.9 VOLUME DEPLETION, UNSPECIFIED 09/11/2018 VitaliyAntoni W 338.2 CHRONIC PAIN 09/11/2018 Antoni Burks W G89.29 OTHER CHRONIC PAIN 09/22/2018 ELMER BEAULIEU W 276.5 0 VOLUME DEPLETION, UNSPECIFIED 09/22/2018 NORISTAGLERNICOLEELMER W 276.8 HYPOPOTASSEMIA 09/22/2018 ELMER BEAULIEU W 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 09/22/2018 ELMER BEAULIEU W D61.0 9 OTHER CONSTITUTIONAL APLASTIC ANEMIA 09/22/2018 NORISTAGLNICOLE PLUNKETTARA W E86.9 VOLUME DEPLETION, UNSPECIFIED 09/22/2018 NORISTANICOLE BARRAGANARA W E87.6 HYPOKALEMIA 10/19/2018 DIANE COY, MELINDA V Ot Z45.2 ENCOUNTER FOR ADJUSTMENT AND MANAGEMENT 10/19/2018 DIANE COY, MELINDA V Ot I74.8 EMBOLISM AND THROMBOSIS OF OTHER ARTERIE 10/24/2018 DIANE COY, MELINDA V Ot I74.8 EMBOLISM AND THROMBOSIS OF OTHER ARTERIE 10/26/2018 DIANE COY, MELINDA V Ot Z45.2 ENCOUNTER FOR ADJUSTMENT AND MANAGEMENT 10/27/2018 FIDEL RIBEIRO DO Ot E86 .0 DEHYDRATION 10/27/2018 FIDEL RIBEIRO DO Ot I10 ESSENTIAL (PRIMARY) HYPERTENSION 10/27/2018 FIDEL RIBEIRO DO Ot R10.84 GENERALIZED ABDOMINAL PAIN 10/27/2018 FIDEL RIBEIRO DO Ot R10 .9 UNSPECIFIED ABDOMINAL PAIN 10/27/2018 FIDEL RIBEIRO DO Ot R11 .2 NAUSEA WITH VOMITING, UNSPECIFIED 10/27/2018 FIDEL RIBEIRO DO Ot R19 .7 DIARRHEA, UNSPECIFIED 10/27/2018 FIDEL RIBEIRO DO Ot Z85.79 PRSNL HX OF [facility] NEOPL OF LYMPHOID, HE 10/27/2018 FIDEL RIBEIRO DO Ot Z88 .1 ALLERGY STATUS TO OTHER ANTIBIOTIC AGENT 10/27/2018 FIDEL RIBEIRO DO Ot Z88 .2 ALLERGY STATUS TO SULFONAMIDES STATUS 10/27/2018 FIDEL RIBEIRO DO Ot Z90.49 ACQUIRED ABSENCE OF OTHER SPECIFIED PART 10/27/2018 FIDEL RIBEIRO DO Ot Z90.710 ACQUIRED ABSENCE OF BOTH CERVIX AND UTER 10/27/2018 FIDEL RIBEIRO DO Ot Z91.040 LATEX ALLERGY STATUS 10/28/2018 ROVENSTINE DO, GONZALES L Ot I10 ESSENTIAL (PRIMARY) HYPERTENSION 10/28/2018 ROVENSTINE DO GONZALES L Ot R11.2 NAUSEA WITH VOMITING, UNSPECIFIED 10/28/2018 ROVENSTINE DO GONZALES L Ot Z85.79 PRSNL HX OF [facility] NEOPLM OF LYMPHOID, HE 10/28/2018 ROVENSTINE DO GONZALES L Ot Z88.1 ALLERGY STATUS TO OTHER ANTIBIOTIC AGENT 10/28/2018 ROVENSTINE DO, GONZALES L Ot Z88.2 ALLERGY STATUS TO SULFONAMIDES STATUS 10/28/2018 ROVENSTINE DO, GONZALES L Ot Z90.49 ACQUIRED ABSENCE OF OTHER SPECIFIED PART 10/28/2018 ROVENSTINE DO, GONZALES L Ot Z90.710 ACQUIRED ABSENCE OF BOTH CERVIX AND UTER 10/28/2018 ROVENSTINE DO, GONZALES L Ot Z91.040 LATEX ALLERGY STATUS 10/28/2018 ROVENSTINE DO, GONZALES L Ot Z94.84 STEM CELLS TRANSPLANT STATUS 10/29/2018 KIETJENNIFER Garner MD Ot I10 ESSENTIAL (PRIMARY) HYPERTENSION 10/29/2018 JENNIFER SANTA MD Ot N39. 0 URINARY TRACT INFECTION, SITE NOT SPECIF 10/29/2018 JENNIFER SANTA MD Ot R11. 2 NAUSEA WITH VOMITING, UNSPECIFIED 10/29/2018 JENNIFER SANTA MD Ot Z85. 79 PRSNL HX OF [facility] NEOP[facility] OF LYMPHOID, HE 10/29/2018 JENNIFER SANTA MD Ot Z88. 1 ALLERGY STATUS TO OTHER ANTIBIOTIC AGENT 10/29/2018 JENNIFER SANTA MD Ot Z88. 2 ALLERGY STATUS TO SULFONAMIDES STATUS 10/29/2018 JENNIFER SANTA MD Ot Z90. 49 ACQUIRED ABSENCE OF OTHER SPECIFIED PART 10/29/2018 JENNIFER SANTA MD Ot Z90.710 ACQUIRED ABSENCE OF BOTH CERVIX AND UTER 10/29/2018 JENNIFER SANTA MD Ot Z91.040 LATEX ALLERGY STATUS 10/29/2018 JENNIFER SANTA MD Ot Z94. 84 STEM CELLS TRANSPLANT STATUS 10/30/2018 TOMASA DOUGLASS DO Ot I10 ESSENTIAL (PRIMARY) HYPERTENSION 10/30/2018 TOMASA DOUGLASS DO Ot N39 .0 URINARY TRACT INFECTION, SITE NOT SPECIF 10/30/2018 TOMASA DOUGLASS DO Ot R11 .2 NAUSEA WITH VOMITING, UNSPECIFIED 10/30/2018 TOMASA DOUGLASS DO Ot Z85.79 PRSNL HX OF [facility] NEOP[facility] OF LYMPHOID, HE 10/30/2018 TOMASA DOUGLASS DO Ot Z88 .1 ALLERGY STATUS TO OTHER ANTIBIOTIC AGENT 10/30/2018 TOMASA DOUGLASS DO Ot Z88 .2 ALLERGY STATUS TO SULFONAMIDES STATUS 10/30/2018 TOMASA DOUGLASS DO Ot Z90.49 ACQUIRED ABSENCE OF OTHER SPECIFIED PART 10/30/2018 TOMASA DOUGLASS DO Ot Z90.710 ACQUIRED ABSENCE OF BOTH CERVIX AND UTER 10/30/2018 TOMASA DOUGLASS DO Ot Z91.040 LATEX ALLERGY STATUS 10/30/2018 TOMASA DOUGLASS DO Ot Z94.84 STEM CELLS TRANSPLANT STATUS 10/31/2018 FIDEL RIBEIRO DO Ot E86 .0 DEHYDRATION 10/31/2018 FIDEL RIBEIRO DO Ot I10 ESSENTIAL (PRIMARY) HYPERTENSION 10/31/2018 FIDEL RIBEIRO DO Ot R10.84 GENERALIZED ABDOMINAL PAIN 10/31/2018 FIDEL RIBEIRO DO Ot R10 .9 UNSPECIFIED ABDOMINAL PAIN 10/31/2018 FIDEL RIBEIRO DO Ot R11 .2 NAUSEA WITH VOMITING, UNSPECIFIED 10/31/2018 FIDEL RIBEIRO DO Ot R19 .7 DIARRHEA, UNSPECIFIED 10/31/2018 FIDEL RIBEIRO DO Ot Z85.79 PRSNL HX OF [facility] NEOPL OF LYMPHOID, HE 10/31/2018 FIDEL RIBEIRO DO Ot Z88 .1 ALLERGY STATUS TO OTHER ANTIBIOTIC AGENT 10/31/2018 FIDEL RIBEIRO DO Ot Z88 .2 ALLERGY STATUS TO SULFONAMIDES STATUS 10/31/2018 FIDEL RIBEIRO DO Ot Z90.49 ACQUIRED ABSENCE OF OTHER SPECIFIED PART 10/31/2018 FIDEL RIBEIRO DO Ot Z90.710 ACQUIRED ABSENCE OF BOTH CERVIX AND UTER 10/31/2018 FIDEL RIBEIRO DO Ot Z91.040 LATEX ALLERGY STATUS 11/01/2018 ROVENSTINE DOMAXWELLEN L Ot I10 ESSENTIAL (PRIMARY) HYPERTENSION 11/01/2018 ROVENSTINE DO, GONZALES L Ot R11.2 NAUSEA WITH VOMITING, UNSPECIFIED 11/01/2018 ROVENSTINE DOMAXWELLEN L Ot Z85.79 PRSNL HX OF [facility] OF LYMPHOID, HE 11/01/2018 ROVENSTINE DO GONZALES L Ot Z88.1 ALLERGY STATUS TO OTHER ANTIBIOTIC AGENT 11/01/2018 ROVENSTINE DO, GONZALES L Ot Z88.2 ALLERGY STATUS TO SULFONAMIDES STATUS 11/01/2018 ROVENSTINE DOMAXWELLEN L Ot Z90.49 ACQUIRED ABSENCE OF OTHER SPECIFIED PART 11/01/2018 ROVENSTINE DO, GONZALES L Ot Z90.710 ACQUIRED ABSENCE OF BOTH CERVIX AND UTER 11/01/2018 ROVENSTINE DO, GONZALES L Ot Z91.040 LATEX ALLERGY STATUS 11/01/2018 ROVENSTINE DO, GONZALES L Ot Z94.84 STEM CELLS TRANSPLANT STATUS 11/02/2018 TOMASA DOUGLASS DO L Ot I10 ESSENTIAL (PRIMARY) HYPERTENSION 11/02/2018 TOMASA DOUGLASS DO Ot N39 .0 URINARY TRACT INFECTION, SITE NOT SPECIF 11/02/2018 TOMASA DOUGLASS DO Ot R11 .2 NAUSEA WITH VOMITING, UNSPECIFIED 11/02/2018 DOUGLASS TOMASA BRICENO Ot Z85.79 PRSNL HX OF [facility] NEOPLM OF LYMPHOID, HE 11/02/2018 DOUGLASS TOMASA BRICENO Ot Z88 .1 ALLERGY STATUS TO OTHER ANTIBIOTIC AGENT 11/02/2018 DOUGLASS TOMASA BRICENO Ot Z88 .2 ALLERGY STATUS TO SULFONAMIDES STATUS 11/02/2018 EVONNE TOMASA BRICENO Ot Z90.49 ACQUIRED ABSENCE OF OTHER SPECIFIED PART 11/02/2018 DOUGLASS TOMASA BRICNEO Ot Z90.710 ACQUIRED ABSENCE OF BOTH CERVIX AND UTER 11/02/2018 DOUGLASS TOMASA BRICENO Ot Z91.040 LATEX ALLERGY STATUS 11/02/2018 EVONNE TOMASA BRICENO Ot Z94.84 STEM CELLS TRANSPLANT STATUS 11/03/2018 DIANE COY, MELINDA V Ot I74.8 EMBOLISM AND THROMBOSIS OF OTHER ARTERIE 11/21/2018 DIANE COY MELINDA V Ot I82.89 0 ACUTE EMBOLISM AND THROMBOSIS OF OTHER S 01/01/2019 NGOC CASTRO MD Ot C90.0 0 MULTIPLE MYELOMA NOT HAVING ACHIEVED REM 01/01/2019 NGOC CASTRO MD Ot G90.5 22 COMPLEX REGIONAL PAIN SYNDROME I OF LEFT 01/01/2019 NGOC CASTRO MD Ot I10 ESSENTIAL (PRIMARY) HYPERTENSION 01/01/2019 NGOC CASTRO MD Ot M79.6 05 PAIN IN LEFT LEG 01/01/2019 NGOC CASTRO MD, Ot Z85.7 9 PRSNL HX OF [facility]OP[facility] OF LYMPHOID, HE 01/01/2019 NGOC CASTRO MD, Ot Z88.1 ALLERGY STATUS TO OTHER ANTIBIOTIC AGENT 01/01/2019 NGOC CASTRO MD, Ot Z88.2 ALLERGY STATUS TO SULFONAMIDES STATUS 01/01/2019 NGOC CASTRO MD Ot Z90.4 9 ACQUIRED ABSENCE OF OTHER SPECIFIED PART 01/01/2019 NGOC CASTRO MD Ot Z90.7 10 ACQUIRED ABSENCE OF BOTH CERVIX AND UTER 01/01/2019 NGOC CASTRO MD Ot Z91.0 40 LATEX ALLERGY STATUS 01/01/2019 NGOC CASTRO MD Ot Z94.8 4 STEM CELLS TRANSPLANT STATUS 01/01/2019 DIANE COY, MELINDA V Ot Z45.2 ENCOUNTER FOR ADJUSTMENT AND MANAGEMENT 01/01/2019 DIANE COY MELINDA V Ot I82.89 0 ACUTE EMBOLISM AND THROMBOSIS OF OTHER S 03/02/2019 RICK OLMOS MD Ot C95.9 0 LEUKEMIA, UNSPECIFIED NOT HAVING ACHIEVE 03/02/2019 RICK OLMOS MD Ot E87.6 HYPOKALEMIA 03/02/2019 RICK OLMOS MD Ot G89.4 CHRONIC PAIN SYNDROME 03/02/2019 RICK OLMOS MD Ot I10 ESSENTIAL (PRIMARY) HYPERTENSION 03/02/2019 RICK OLMOS MD Ot K21.9 GASTRO-ESOPHAGEAL REFLUX DISEASE WITHOUT 03/02/2019 RICK OLMOS MD Ot N17.9 ACUTE KIDNEY FAILURE, UNSPECIFIED 03/02/2019 RICK OLMOS MD Ot R11.2 NAUSEA WITH VOMITING, UNSPECIFIED 03/02/2019 RICK OLMOS MD Ot T45.1X5A ADVERSE EFFECT OF ANTINEOPLASTIC AND IMM 03/02/2019 RICK OLMOS MD Ot Z79.8 99 OTHER SNF (CURRENT) DRUG THERAPY 03/02/2019 RICK OLMOS MD Ot Z88.1 ALLERGY STATUS TO OTHER ANTIBIOTIC AGENT 03/02/2019 RICK OLMOS MD Ot Z88.2 ALLERGY STATUS TO SULFONAMIDES STATUS 03/02/2019 RICK OLMOS MD Ot Z90.4 9 ACQUIRED ABSENCE OF OTHER SPECIFIED PART 03/02/2019 RICK OLMOS MD Ot Z90.7 10 ACQUIRED ABSENCE OF BOTH CERVIX AND UTER 03/02/2019 RICK OLMOS MD Ot Z90.8 9 ACQUIRED ABSENCE OF OTHER ORGANS 03/02/2019 RICK OLMOS MD Ot Z94.8 4 STEM CELLS TRANSPLANT STATUS 03/02/2019 RICK OLMOS MD Ot C95.9 0 LEUKEMIA, UNSPECIFIED NOT HAVING ACHIEVE 03/02/2019 RICK OLMOS MD Ot E87.6 HYPOKALEMIA 03/02/2019 RICK OLMOS MD Ot G89.4 CHRONIC PAIN SYNDROME 03/02/2019 RICK OLMOS MD Ot I10 ESSENTIAL (PRIMARY) HYPERTENSION 03/02/2019 RICK OLMOS MD Ot K21.9 GASTRO-ESOPHAGEAL REFLUX DISEASE WITHOUT 03/02/2019 RICK OLMOS MD Ot N17.9 ACUTE KIDNEY FAILURE, UNSPECIFIED 03/02/2019 RICK OLMOS MD, Ot R11.2 NAUSEA WITH VOMITING, UNSPECIFIED 03/02/2019 RICK OLMOS MD, Ot T45.1X5A ADVERSE EFFECT OF ANTINEOPLASTIC AND IMM 03/02/2019 RICK OLMOS MD, Ot 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 Results Test Result Range Urinalysis - 11/20/16 12:37 Icotest N/A Negative Urine Volume Urine Volume Sufficient (10mL) Urine Yeast No Yeast present Urine-Appearance Clear Clear Urine-Bacteria 4+ Urine-Bilirubin Negative Negative Urine-Blood Negative Negative Urine-Color Yellow Colorless-Lt. [place] ow Urine-Epithelial Cells 0-5/HPF Urine-Glucose Negative Negative Urine-Ketones Negative Negative Urine-Leukocytes Negative Negative Urine-Nitrite Negative Negative Urine-Other Culture to follow Urine-pH 6.5 5-8.5 Urine-Protein Negative Negative Urine-RBC Negative Urine-Specific [place] 1.010 1.000-1 .030 Urine-WBC Rare/HPF Urobilinogen 0.2 E.U./dL 0.2-1.0 Urine Culture - 11/20/16 12:37 PRELIM CULTURE RESULTS >100,000 Gram Negativ e Lactose Commercial Designer JENNY / ID to Follow CULTURE SOURCE [id number]\ Sensi - 11/20/16 12:37 FINAL CULTURE RESULTS Klebsiella pneumoniae ([place] te 1) Ampicillin/Sulbactam <=8/4 Ampicillin 16 Amoxicillin/K Clavulanate <=8/4 Ceftriaxone <=8 Ciprofloxacin <=1 Nitrofurantoin <=32 Gentamicin <=4 Levofloxacin <=2 Trimethoprim/ Sulfamethoxazole <=2/38 Tetracycline <=4 Amikacin <=16 Aztreonam <=8 Ceftazidime <=1 Ceftazidime/K Clavulanate <=0.25 Cephalothin <=8 Cefotaxime <=2 Cefotaxime/K Clavulanate <=0.5 Cefoxitin <=8 Cefazolin <=8 Cefepime <=8 Cefuroxime <=4 Ertapenem <=1 Imipenem <=4 Meropenem <=4 Piperacillin/Tazobactam <=16 Piperacillin <=16 Tigecycline <=2 Tobramycin <=4 MRSA Screen - 11/20/16 12:37 FINAL CULTURE RESULTS MRSA Negative Nasal Culture MEDIA PLATED Setup at 13:16 on 11/20/2016 Surgical Pathology - 11/26/16 10:32 Surg Path Sent to [facility] Complete blood count (CBC) with automate d white blood cell (WBC) differential - 05/24/18 09:43 Blood leukocytes automated count (number/volume) 5.1 10*3/uL 4.3-11.0 Blood erythrocytes automated count (number/volume) 3.70 10*6/uL 4.35-5.85 Venous blood hemoglobin measurement (mass/volume) 12.8 g/dL 11.5-16.0 Blood hematocrit (volume fraction) 38 % 35-52 Automated erythrocyte mean corpuscular volume 103 [foz_us] 80-99 Automated erythrocyte mean corpuscular h emoglobin (mass per erythrocyte) 35 pg 25-34 Automated erythrocyte mean corpuscular h emoglobin concentration measurement (mass/volume) 34 g/dL 32-36 Automated erythrocyte distribution width ratio 13. 0 % 10.0- 14.5 Automated blood platelet count [...] 10*3 1.0-4.0 Blood monocytes automated count (number/volume) 0. 5 10*3 0.0-1.0 Automated eosinophil count 0.1 10*3/uL 0 .0-0.3 Automated blood basophil count (count/volume) 0.0 10*3/uL 0.0-0.1 Comprehensive metabolic panel - 05/24/18 09:43 Serum or plasma sodium measurement (moles/volume) 138 mmol/L 135-145 Serum or plasma potassium measurement (moles/volume) 4.1 mmol/L 3.6-5.0 Serum or plasma chloride measurement (moles/volume) 101 mmol/L 98-107 Carbon dioxide 23 mmol/L 21-32 Serum or plasma anion gap determination (moles/volume) 14 mmol/L 5-14 Serum or plasma urea nitrogen measurement (mass/volume ) 12 mg/dL 7-18 Serum or plasma creatinine measurement (mass/volume) 1.81 mg/dL 0.60-1.30 Serum or plasma urea nitrogen/creatinine mass ratio 7 NRG Serum or plasma creatinine measurement w ith calculation of estimated glomerular filtration rate 28 NRG Serum or plasma glucose measurement (mass/volume) 83 mg/dL 70-105 Serum or plasma calcium measurement (mass/volume) 9.3 mg/dL 8.5-10.1 Serum or plasma total bilirubin measurement (mass/volu me) 0.4 mg/dL 0.1-1.0 Serum or plasma alkaline phosphatase [place] surement (enzymatic activity/volume) 62 U/L 40-136 Serum or plasma aspartate aminotransfera se measurement (enzymatic activity/volume) 17 U/L 5-34 Serum [...] NG NRG Complete urinalysis with reflex to cultu re - 05/24/18 10:35 Urine color determination YELLOW NRG Urine clarity determination CLEAR NR G Urine pH measurement by test strip 6.0 5-9 Specific gravity of urine by test strip <= 1.016-1.022 Urine protein assay by test strip, semi-quantitative NEGATIVE NEGATIVE Urine glucose detection by automated test strip NE GATIVE NEGATIVE Erythrocytes detection in urine sediment by light micr oscopy NEGATIVE NEGATIVE Urine ketones detection by automated test strip NE GATIVE NEGATIVE Urine nitrite detection by test strip NEGATIVE NEGATIVE Urine total bilirubin detection by test strip NEGA TIVE NEGATIVE Urine urobilinogen measurement by automated test strip (mass/volume) 0.2 mg/dL NORMAL Urine leukocyte esterase detection by dipstick NEG ATIVE NEGATIVE Automated urine sediment erythrocyte cou nt by microscopy (number/high power field) NONE NRG Automated urine sediment leukocyte count by microscopy (number/high power field) RARE NRG Bacteria detection in urine sediment by light microsco py NEGATIVE NRG Squamous epithelial cells detection in u rine sediment by light microscopy 0-2 NRG Crystals detection in urine sediment by light microsco py NONE NRG Casts detection in urine sediment by light microscopy NONE NRG Mucus detection in urine sediment by light microscopy NEGATIVE NRG Complete urinalysis with reflex to culture NO NRG Blood lactic acid measurement (moles/vol ume) - 05/24/18 10:50 Blood lactic acid measurement (moles/volume) 0.90 mmol/L 0.50-2.00 Bacterial blood culture - 05/24/18 10:50 Bacterial blood culture NG NRG Complete urinalysis with reflex to cultu re - 07/05/18 17:12 Urine color determination YELLOW NRG Urine clarity determination CLEAR NR G Urine pH measurement by test strip 6.5 5-9 Specific gravity of urine by test strip 1.020 1.016-1.022 Urine protein assay by test strip, semi-quantitative 1+ NEGATIVE Urine glucose detection by automated test strip NE GATIVE NEGATIVE Erythrocytes detection in urine sediment by light micr oscopy TRACE NEGATIVE Urine ketones detection by automated test strip NE GATIVE NEGATIVE Urine nitrite detection by test strip NEGATIVE NEGATIVE Urine total bilirubin detection by test strip NEGA TIVE NEGATIVE Urine urobilinogen measurement by automated test strip (mass/volume) 0.2 mg/dL NORMAL Urine leukocyte esterase detection by dipstick TRA CE NEGATIVE Automated urine sediment erythrocyte cou nt by microscopy (number/high power field) NONE NRG Automated urine sediment leukocyte count by microscopy (number/high power field) [HPF] NRG Bacteria detection in urine sediment by light microsco py TRACE NRG Squamous epithelial cells detection in u rine sediment by light microscopy 0-2 NRG Crystals detection in urine sediment by light microsco py NONE NRG Casts detection in urine sediment by light microscopy NONE NRG Mucus detection in urine sediment by light microscopy SMALL NRG Complete urinalysis with reflex to culture NO NRG Other elements identification in urine sediment by lig ht microscopy N NRG Complete blood count (CBC) with automate d white blood cell (WBC) differential - 07/05/18 17:38 Blood leukocytes automated count (number/volume) 5.1 10*3/uL 4.3-11.0 Blood erythrocytes automated count (number/volume) 3.46 10*6/uL 4.35-5.85 Venous blood hemoglobin measurement (mass/volume) 11.9 g/dL 11.5-16.0 Blood hematocrit (volume fraction) 36 % 35-52 Automated erythrocyte mean corpuscular volume 103 [foz_us] 80-99 Automated erythrocyte mean corpuscular h emoglobin (mass per erythrocyte) 34 pg 25-34 Automated erythrocyte mean corpuscular h emoglobin concentration measurement (mass/volume) 33 g/dL 32-36 Automated erythrocyte distribution width ratio 12. 8 % 10.0- 14.5 Automated blood platelet count (count/volume) 132 10*3/uL 130-400 Automated blood platelet mean volume measurement 9.5 [foz_us] 7.4-10.4 Automated blood neutrophils/100 leukocytes 76 % 42-75 Automated blood lymphocytes/100 leukocytes 13 % 12-44 Blood monocytes/100 leukocytes 10 % 0-12 Automated blood eosinophils/100 leukocytes 1 % 0-10 Automated blood basophils/100 leukocytes 0 % 0-10 Blood neutrophils automated count (number/volume) 3.9 10*3 1.8-7.8 Blood lymphocytes automated count (number/volume) 0.7 10*3 1.0-4.0 Blood monocytes automated count (number/volume) 0. 5 10*3 0.0-1.0 Automated eosinophil count 0.0 10*3/uL 0 .0-0.3 Automated blood basophil count (count/volume) 0.0 10*3/uL 0.0-0.1 Comprehensive metabolic panel - 07/05/18 17:38 Serum or plasma sodium measurement (moles/volume) 140 mmol/L 135-145 Serum or plasma potassium measurement (moles/volume) 4.1 mmol/L 3.6-5.0 Serum or plasma chloride measurement (moles/volume) 103 mmol/L 98-107 Carbon dioxide 24 mmol/L 21-32 Serum or plasma anion gap determination (moles/volume) 13 mmol/L 5-14 Serum or plasma urea nitrogen measurement (mass/volume ) 16 mg/dL 7-18 Serum or plasma creatinine measurement (mass/volume) 1.78 mg/dL 0.60-1.30 Serum or plasma urea nitrogen/creatinine mass ratio 9 NRG Serum or plasma creatinine measurement w ith calculation of estimated glomerular filtration rate 29 NRG Serum or plasma glucose measurement (mass/volume) 113 mg/dL 70-105 Serum or plasma calcium measurement (mass/volume) 9.8 mg/dL 8.5-10.1 Serum or plasma total bilirubin measurement (mass/volu me) 0.7 mg/dL 0.1-1.0 Serum or plasma alkaline phosphatase [place] surement (enzymatic activity/volume) 59 U/L 40-136 Serum or plasma aspartate aminotransfera se measurement (enzymatic activity/volume) 20 U/L 5-34 Serum or plasma alanine aminotransferase measurement (enzymatic activity/volume) 14 U/L 0-55 Serum or plasma protein measurement (mass/volume) 6.8 g/dL 6.4-8.2 Serum or plasma albumin measurement (mass/volume) 4.6 g/dL 3.2-4.5 Lipase - 07/05/18 17:38 Lipase 22 U/L 8-78 BMP - 07/30/18 12:00 Anion Gap 13 6-14 BUN 16 mg/dL 5-25 Calcium 10.2 mg/dL 8.3-10.4 Chloride 107 mmol/L 95-114 CO2 23 mEq/L 22-33 Creat 1.92 mg/dL 0.50-1.50 eGFR 26 mL/min/1.73m2 >59 Glucose 124 mg/dL 70-110 Osmo 290 280-295 Potassium 4.3 mmol/L 3.5-5.3 Sodium 139 mmol/L 134-148 Urinalysis - 07/30/18 13:24 Icotest N/A Negative Urine Volume Urine Volume Sufficient (10mL) Urine Yeast No Yeast present Urine-Appearance Clear Clear Urine-Bacteria Negative Urine-Bilirubin Negative Negative Urine-Blood Negative Negative Urine-Color Yellow Colorless-Lt. [place] ow Urine-Glucose Negative Negative Urine-Ketones Negative Negative Urine-Leukocytes Negative Negative Urine-Nitrite Negative Negative Urine-Other Urine Saved if Culture Need ed (48hrs from time of collection) Urine-pH 7.0 5-8.5 Urine-Protein Negative Negative Urine-RBC Rare/HPF Urine-Specific [place] 1.010 1.000-1 .030 Urine-WBC Negative Urobilinogen 0.2 E.U./dL 0.2-1.0 Complete blood count (CBC) with automate d white blood cell (WBC) differential - 10/27/18 11:50 Blood leukocytes automated count (number/volume) 4.3 10*3/uL 4.3-11.0 Blood erythrocytes automated count (number/volume) 3.74 10*6/uL 4.35-5.85 Venous blood hemoglobin measurement (mass/volume) 12.9 g/dL 11.5-16.0 Blood hematocrit (volume fraction) 38 % 35-52 Automated erythrocyte mean corpuscular volume 102 [foz_us] 80-99 Automated erythrocyte mean corpuscular h emoglobin (mass per erythrocyte) 34 pg 25-34 Automated erythrocyte mean corpuscular h emoglobin concentration measurement (mass/volume) 34 g/dL 32-36 Automated erythrocyte distribution width ratio 12. 7 % 10.0- 14.5 Automated blood platelet count (count/volume) 119 10*3/uL 130-400 Automated blood platelet mean volume measurement 10.0 [foz_us] 7.4-10.4 Automated blood neutrophils/100 leukocytes 59 % 42-75 Automated blood lymphocytes/100 leukocytes 21 % 12-44 Blood monocytes/100 leukocytes 19 % 0-12 Automated blood eosinophils/100 leukocytes 1 % 0-10 Automated blood basophils/100 leukocytes 0 % 0-10 Blood neutrophils automated count (number/volume) 2.6 10*3 1.8-7.8 Blood lymphocytes automated count (number/volume) 0.9 10*3 1.0-4.0 Blood monocytes automated count (number/volume) 0. 8 10*3 0.0-1.0 Automated eosinophil count 0.0 10*3/uL 0 .0-0.3 Automated blood basophil count (count/volume) 0.0 10*3/uL 0.0-0.1 Comprehensive metabolic panel - 10/27/18 11:50 Serum or plasma sodium measurement (moles/volume) 136 mmol/L 135-145 Serum or plasma potassium measurement (moles/volume) 4.1 mmol/L 3.6-5.0 Serum or plasma chloride measurement (moles/volume) 101 mmol/L 98-107 Carbon dioxide 20 mmol/L 21-32 Serum or plasma anion gap determination (moles/volume) 15 mmol/L 5-14 Serum or plasma urea nitrogen measurement (mass/volume ) 20 mg/dL 7-18 Serum or plasma creatinine measurement (mass/volume) 1.95 mg/dL 0.60-1.30 Serum or plasma urea nitrogen/creatinine mass ratio 10 NRG Serum or plasma creatinine measurement w ith calculation of estimated glomerular filtration rate 26 NRG Serum or plasma glucose measurement (mass/volume) 108 mg/dL 70-105 Serum or plasma calcium measurement (mass/volume) 9.4 mg/dL 8.5-10.1 Serum or plasma total bilirubin measurement (mass/volu me) 0.6 mg/dL 0.1-1.0 Serum or plasma alkaline phosphatase garfield surement (enzymatic activity/volume) 64 U/L 40-136 Serum or plasma aspartate aminotransfera se measurement (enzymatic activity/volume) 13 U/L 5-34 Serum or plasma alanine aminotransferase measurement (enzymatic activity/volume) 9 U/L 0-55 Serum or plasma protein measurement (mass/volume) 6.6 g/dL 6.4-8.2 Serum or plasma albumin measurement (mass/volume) 4.2 g/dL 3.2-4.5 CALCIUM CORRECTED 9.2 mg/dL 8.5-10.1 Magnesium - 10/27/18 11:50 Magnesium 1.9 mg/dL 1.6-2.4 Lipase - 10/27/18 11:50 Lipase 19 U/L 8-78 Manual absolute plasma cell count - 10/09 10/27 11:50 Blood monocytes/100 leukocytes 16 % NRG Manual blood segmented neutrophils/100 leukocytes 45 % NRG Blood band neutrophils/100 leukocytes 13 % NRG Manual blood lymphocytes/100 leukocytes 26 % NRG Complete urinalysis with reflex to cultu re - 10/27/18 12:08 Urine color determination YELLOW NRG Urine clarity determination SLT CLOUDY NRG Urine pH measurement by test strip 6.0 5-9 Specific gravity of urine by test strip 1.025 1.016-1.022 Urine protein assay by test strip, semi-quantitative 1+ NEGATIVE Urine glucose detection by automated test strip NE GATIVE NEGATIVE Erythrocytes detection in urine sediment by light micr oscopy 1+ NEGATIVE Urine ketones detection by automated test strip NE GATIVE NEGATIVE Urine nitrite detection by test strip NEGATIVE NEGATIVE Urine total bilirubin detection by test strip NEGA TIVE NEGATIVE Urine urobilinogen measurement by automated test strip (mass/volume) 0.2 mg/dL NORMAL Urine leukocyte esterase detection by dipstick 1+ NEGATIVE Automated urine sediment erythrocyte cou nt by microscopy (number/high power field) [HPF] NRG Automated urine sediment leukocyte count by microscopy (number/high power field) [HPF] NRG Bacteria detection in urine sediment by light microsco py FEW NRG Squamous epithelial cells detection in u rine sediment by light microscopy 5-10 NRG Crystals detection in urine sediment by light microsco py NONE NRG Casts detection in urine sediment by light microscopy NONE NRG Mucus detection in urine sediment by light microscopy NONE NRG Complete urinalysis with reflex to culture YES NRG Bacterial urine culture - 10/27/18 12:08 Bacterial urine culture 3 OR MORE NRG COLONY COUNT 40,000 CFU/ML NRG FTX;REPORTABLE GRAM POSITIVE ISOLATES; SUGGESTING NRG FREE TEXT ENTRY 2 PROBABLE COLLECTION CONTAMINATIO N WITH NRG FREE TEXT ENTRY 3 SKIN MITRA. NO SUSCEPTIBILITY PE RFORMED. NRG Complete blood count (CBC) with automate d white blood cell (WBC) differential - 10/28/18 16:20 Blood leukocytes automated count (number/volume) 3.9 10*3/uL 4.3-11.0 Blood erythrocytes automated count (number/volume) 3.35 10*6/uL 4.35-5.85 Venous blood hemoglobin measurement (mass/volume) 11.5 g/dL 11.5-16.0 Blood hematocrit (volume fraction) 34 % 35-52 Automated erythrocyte mean corpuscular volume 102 [foz_us] 80-99 Automated erythrocyte mean corpuscular h emoglobin (mass per erythrocyte) 34 pg 25-34 Automated erythrocyte mean corpuscular h emoglobin concentration measurement (mass/volume) 34 g/dL 32-36 Automated erythrocyte distribution width ratio 12. 5 % 10.0- 14.5 Automated blood platelet count (count/volume) 109 10*3/uL 130-400 Automated blood platelet mean volume measurement 10.1 [foz_us] 7.4-10.4 Automated blood neutrophils/100 leukocytes 66 % 42-75 Automated blood lymphocytes/100 leukocytes 17 % 12-44 Blood monocytes/100 leukocytes 14 % 0-12 Automated blood eosinophils/100 leukocytes 3 % 0-10 Automated blood basophils/100 leukocytes 0 % 0-10 Blood neutrophils automated count (number/volume) 2.6 10*3 1.8-7.8 Blood lymphocytes automated count (number/volume) 0.7 10*3 1.0-4.0 Blood monocytes automated count (number/volume) 0. 5 10*3 0.0-1.0 Automated eosinophil count 0.1 10*3/uL 0 .0-0.3 Automated blood basophil count (count/volume) 0.0 10*3/uL 0.0-0.1 Comprehensive metabolic panel - 10/28/18 16:20 Serum or plasma sodium measurement (moles/volume) 134 mmol/L 135-145 Serum or plasma potassium measurement (moles/volume) 3.7 mmol/L 3.6-5.0 Serum or plasma chloride measurement (moles/volume) 110 mmol/L 98-107 Carbon dioxide 21 mmol/L 21-32 Serum or plasma anion gap determination (moles/volume) 3 mmol/L 5-14 Serum or plasma urea nitrogen measurement (mass/volume ) 16 mg/dL 7-18 Serum or plasma creatinine measurement (mass/volume) 1.55 mg/dL 0.60-1.30 Serum or plasma urea nitrogen/creatinine mass ratio 10 NRG Serum or plasma creatinine measurement w ith calculation of estimated glomerular filtration rate 33 NRG Serum or plasma glucose measurement (mass/volume) 89 mg/dL 70-105 Serum or plasma calcium measurement (mass/volume) 8.8 mg/dL 8.5-10.1 Serum or plasma total bilirubin measurement (mass/volu me) 0.4 mg/dL 0.1-1.0 Serum or plasma alkaline phosphatase gar[place] surement (enzymatic activity/volume) 52 U/L 40-136 Serum or plasma aspartate aminotransfera se measurement (enzymatic activity/volume) 17 U/L 5-34 Serum or plasma alanine aminotransferase measurement (enzymatic activity/volume) 8 U/L 0-55 Serum or plasma protein measurement (mass/volume) 5.8 g/dL 6.4-8.2 Serum or plasma albumin measurement (mass/volume) 3.8 g/dL 3.2-4.5 CALCIUM CORRECTED 9.0 mg/dL 8.5-10.1 Lipase - 10/28/18 16:20 Lipase 19 U/L 8-78 Blood lactic acid measurement (moles/vol ume) - 10/28/18 16:24 Blood lactic acid measurement (moles/volume) 0.69 mmol/L 0.50-2.00 Complete urinalysis with reflex to cultu re - 10/28/18 17:15 Urine color determination YELLOW NRG Urine clarity determination CLEAR NR G Urine pH measurement by test strip 6.5 5-9 Specific gravity of urine by test strip 1.010 1.016-1.022 Urine protein assay by test strip, semi-quantitative NEGATIVE NEGATIVE Urine glucose detection by automated test strip NE GATIVE NEGATIVE Erythrocytes detection in urine sediment by light micr oscopy NEGATIVE NEGATIVE Urine ketones detection by automated test strip NE GATIVE NEGATIVE Urine nitrite detection by test strip NEGATIVE NEGATIVE Urine total bilirubin detection by test strip NEGA TIVE NEGATIVE Urine urobilinogen measurement by automated test strip (mass/volume) 0.2 mg/dL NORMAL Urine leukocyte esterase detection by dipstick 1+ NEGATIVE Automated urine sediment erythrocyte cou nt by microscopy (number/high power field) NONE NRG Automated urine sediment leukocyte count by microscopy (number/high power field) [HPF] NRG Bacteria detection in urine sediment by light microsco py TRACE NRG Squamous epithelial cells detection in u rine sediment by light microscopy 2-5 NRG Crystals detection in urine sediment by light microsco py NONE NRG Casts detection in urine sediment by light microscopy NONE NRG Mucus detection in urine sediment by light microscopy NEGATIVE NRG Complete urinalysis with reflex to culture YES NRG Bacterial urine culture - 10/28/18 17:15 Bacterial urine culture 3 OR MORE NRG COLONY COUNT 30,000 CFU/ML NRG FTX;REPORTABLE (GRAM POSITIVE) SUGGESTING PROBABLE NRG FREE TEXT ENTRY 2 COLLECTION CONTAMINATION WITH SK IN NRG FREE TEXT ENTRY 3 MITRA. NO SUSCEPTIBILITY PERFOR MED NRG Complete blood count (CBC) with automate d white blood cell (WBC) differential - 01/01/19 15:05 Blood leukocytes automated count (number/volume) 4.9 10*3/uL 4.3-11.0 Blood erythrocytes automated count (number/volume) 3.17 10*6/uL 4.35-5.85 Venous blood hemoglobin measurement (mass/volume) 10.9 g/dL 11.5-16.0 Blood hematocrit (volume fraction) 33 % 35-52 Automated erythrocyte mean corpuscular volume 104 [foz_us] 80-99 Automated erythrocyte mean corpuscular h emoglobin (mass per erythrocyte) 34 pg 25-34 Automated erythrocyte mean corpuscular h emoglobin concentration measurement (mass/volume) 33 g/dL 32-36 Automated erythrocyte distribution width ratio 12. 8 % 10.0- 14.5 Automated blood platelet count (count/volume) 121 10*3/uL 130-400 Automated blood platelet mean volume measurement 9.9 [foz_us] 7.4-10.4 Automated blood neutrophils/100 leukocytes 73 % 42-75 Automated blood lymphocytes/100 leukocytes 17 % 12-44 Blood monocytes/100 leukocytes 10 % 0-12 Automated blood eosinophils/100 leukocytes 0 % 0-10 Automated blood basophils/100 leukocytes 0 % 0-10 Blood neutrophils automated count (number/volume) 3.6 10*3 1.8-7.8 Blood lymphocytes automated count (number/volume) 0.8 10*3 1.0-4.0 Blood monocytes automated count (number/volume) 0. 5 10*3 0.0-1.0 Automated eosinophil count 0.0 10*3/uL 0 .0-0.3 Automated blood basophil count (count/volume) 0.0 10*3/uL 0.0-0.1 Comprehensive metabolic panel - 01/01/19 15:05 Serum or plasma sodium measurement (moles/volume) 139 mmol/L 135-145 Serum or plasma potassium measurement (moles/volume) 3.8 mmol/L 3.6-5.0 Serum or plasma chloride measurement (moles/volume) 107 mmol/L 98-107 Carbon dioxide 25 mmol/L 21-32 Serum or plasma anion gap determination (moles/volume) 7 mmol/L 5-14 Serum or plasma urea nitrogen measurement (mass/volume ) 17 mg/dL 7-18 Serum or plasma creatinine measurement (mass/volume) 1.42 mg/dL 0.60-1.30 Serum or plasma urea nitrogen/creatinine mass ratio 12 NRG Serum or plasma creatinine measurement w ith calculation of estimated glomerular filtration rate 37 NRG Serum or plasma glucose measurement (mass/volume) 86 mg/dL 70-105 Serum or plasma calcium measurement (mass/volume) 9.4 mg/dL 8.5-10.1 Serum or plasma total bilirubin measurement (mass/volu me) 0.5 mg/dL 0.1-1.0 Serum or plasma alkaline phosphatase gar[place] surement (enzymatic activity/volume) 62 U/L 40-136 Serum or plasma aspartate aminotransfera se measurement (enzymatic activity/volume) 14 U/L 5-34 Serum or plasma alanine aminotransferase measurement (enzymatic activity/volume) 8 U/L 0-55 Serum or plasma protein measurement (mass/volume) 6.2 g/dL 6.4-8.2 Serum or plasma albumin measurement (mass/volume) 4.1 g/dL 3.2-4.5 CALCIUM CORRECTED 9.3 mg/dL 8.5-10.1 Magnesium - 01/01/19 15:05 Magnesium 2.0 mg/dL 1.6-2.4 Lipase - 01/01/19 15:05 Lipase 17 U/L 8-78 Complete blood count (CBC) with automate d white blood cell (WBC) differential - 03/01/19 02:22 Blood leukocytes automated count (number/volume) 6.4 10*3/uL 4.3-11.0 Blood erythrocytes automated count (number/volume) 3.48 10*6/uL 4.35-5.85 Venous blood hemoglobin measurement (mass/volume) 11.7 g/dL 11.5-16.0 Blood hematocrit (volume fraction) 36 % 35-52 Automated erythrocyte mean corpuscular volume 103 [foz_us] 80-99 Automated erythrocyte mean corpuscular h emoglobin (mass per erythrocyte) 34 pg 25-34 Automated erythrocyte mean corpuscular h emoglobin concentration measurement (mass/volume) 33 g/dL 32-36 Automated erythrocyte distribution width ratio 12. 9 % 10.0- 14.5 Automated blood platelet count (count/volume) 107 10*3/uL 130-400 Automated blood platelet mean volume measurement 9.0 [foz_us] 7.4-10.4 Automated blood neutrophils/100 leukocytes 78 % 42-75 Automated blood lymphocytes/100 leukocytes 11 % 12-44 Blood monocytes/100 leukocytes 10 % 0-12 Automated blood eosinophils/100 leukocytes 1 % 0-10 Automated blood basophils/100 leukocytes 0 % 0-10 Blood neutrophils automated count (number/volume) 5.0 10*3 1.8-7.8 Blood lymphocytes automated count (number/volume) 0.7 10*3 1.0-4.0 Blood monocytes automated count (number/volume) 0. 6 10*3 0.0-1.0 Automated eosinophil count 0.0 10*3/uL 0 .0-0.3 Automated blood basophil count (count/volume) 0.0 10*3/uL 0.0-0.1 Comprehensive metabolic panel - 03/01/19 02:22 Serum or plasma sodium measurement (moles/volume) 139 mmol/L 135-145 Serum or plasma potassium measurement (moles/volume) 3.3 mmol/L 3.6-5.0 Serum or plasma chloride measurement (moles/volume) 105 mmol/L 98-107 Carbon dioxide 21 mmol/L 21-32 Serum or plasma anion gap determination (moles/volume) 13 mmol/L 5-14 Serum or plasma urea nitrogen measurement (mass/volume ) 22 mg/dL 7-18 Serum or plasma creatinine measurement (mass/volume) 1.56 mg/dL 0.60-1.30 Serum or plasma urea nitrogen/creatinine mass ratio 14 NRG Serum or plasma creatinine measurement w ith calculation of estimated glomerular filtration rate 33 NRG Serum or plasma glucose measurement (mass/volume) 118 mg/dL 70-105 Serum or plasma calcium measurement (mass/volume) 9.4 mg/dL 8.5-10.1 Serum or plasma total bilirubin measurement (mass/volu me) 0.4 mg/dL 0.1-1.0 Serum or plasma alkaline phosphatase [place] surement (enzymatic activity/volume) 65 U/L 40-136 Serum or plasma aspartate aminotransfera se measurement (enzymatic activity/volume) 18 U/L 5-34 Serum or plasma alanine aminotransferase measurement (enzymatic activity/volume) 12 U/L 0-55 Serum or plasma protein measurement (mass/volume) 6.3 g/dL 6.4-8.2 Serum or plasma albumin measurement (mass/volume) 4.1 g/dL 3.2-4.5 CALCIUM CORRECTED 9.3 mg/dL 8.5-10.1 Magnesium - 03/01/19 02:22 Magnesium 1.9 mg/dL 1.6-2.4 Lipase - 03/01/19 02:22 Lipase 19 U/L 8-78 Complete blood count (CBC) with automate d white blood cell (WBC) differential - 03/02/19 06:35 Blood leukocytes automated count (number/volume) 3.3 10*3/uL 4.3-11.0 Blood erythrocytes automated count (number/volume) 3.07 10*6/uL 4.35-5.85 Venous blood hemoglobin measurement (mass/volume) 10.3 g/dL 11.5-16.0 Blood hematocrit (volume fraction) 32 % 35-52 Automated erythrocyte mean corpuscular volume 103 [foz_us] 80-99 Automated erythrocyte mean corpuscular h emoglobin (mass per erythrocyte) 34 pg 25-34 Automated erythrocyte mean corpuscular h emoglobin concentration measurement (mass/volume) 33 g/dL 32-36 Automated erythrocyte distribution width ratio 12. 8 % 10.0- 14.5 Automated blood platelet count (count/volume) 96 1 0*3/uL 130-400 Automated blood platelet mean volume measurement 9.7 [foz_us] 7.4-10.4 Automated blood neutrophils/100 leukocytes 55 % 42-75 Automated blood lymphocytes/100 leukocytes 26 % 12-44 Blood monocytes/100 leukocytes 16 % 0-12 Automated blood eosinophils/100 leukocytes 3 % 0-10 Automated blood basophils/100 leukocytes 0 % 0-10 Blood neutrophils automated count (number/volume) 1.8 10*3 1.8-7.8 Blood lymphocytes automated count (number/volume) 0.9 10*3 1.0-4.0 Blood monocytes automated count (number/volume) 0. 5 10*3 0.0-1.0 Automated eosinophil count 0.1 10*3/uL 0 .0-0.3 Automated blood basophil count (count/volume) 0.0 10*3/uL 0.0-0.1 Whole blood basic metabolic panel - 02/09 04/27 06:35 Serum or plasma sodium measurement (moles/volume) 141 mmol/L 135-145 Serum or plasma potassium measurement (moles/volume) 4.3 mmol/L 3.6-5.0 Serum or plasma chloride measurement (moles/volume) 114 mmol/L 98-107 Carbon dioxide 21 mmol/L 21-32 Serum or plasma anion gap determination (moles/volume) 6 mmol/L 5-14 Serum or plasma urea nitrogen measurement (mass/volume ) 21 mg/dL 7-18 Serum or plasma creatinine measurement (mass/volume) 1.56 mg/dL 0.60-1.30 Serum or plasma urea nitrogen/creatinine mass ratio 13 NRG Serum or plasma creatinine measurement w ith calculation of estimated glomerular filtration rate 33 NRG Serum or plasma glucose measurement (mass/volume) 78 mg/dL 70-105 Serum or plasma calcium measurement (mass/volume) 8.2 mg/dL 8.5-10.1 Blood CBC with ordered manual differenti al panel - 03/12/19 13:40 Blood leukocytes automated count (number/volume) 5.5 10*3/uL 4.3-11.0 Blood erythrocytes automated count (number/volume) 3.68 10*6/uL 4.35-5.85 Venous blood hemoglobin measurement (mass/volume) 12.7 g/dL 11.5-16.0 Blood hematocrit (volume fraction) 37 % 35-52 Automated erythrocyte mean corpuscular volume 100 [foz_us] 80-99 Automated erythrocyte mean corpuscular h emoglobin (mass per erythrocyte) 35 pg 25-34 Automated erythrocyte mean corpuscular h emoglobin concentration measurement (mass/volume) 35 g/dL 32-36 Automated erythrocyte distribution width ratio 12. 5 % 10.0- 14.5 Automated blood platelet count (count/volume) 154 10*3/uL 130-400 Automated blood platelet mean volume measurement 10.1 [foz_us] 7.4-10.4 Automated blood neutrophils/100 leukocytes 78 % 42-75 Automated blood lymphocytes/100 leukocytes 14 % 12-44 Blood monocytes/100 leukocytes 7 % NRG Automated blood eosinophils/100 leukocytes 0 % 0-10 Automated blood basophils/100 leukocytes 0 % 0-10 Blood neutrophils automated count (number/volume) 4.3 10*3 1.8-7.8 Blood lymphocytes automated count (number/volume) 0.8 10*3 1.0-4.0 Blood monocytes automated count (number/volume) 0. 4 10*3 0.0-1.0 Automated eosinophil count 0.0 10*3/uL 0 .0-0.3 Automated blood basophil count (count/volume) 0.0 10*3/uL 0.0-0.1 Manual blood segmented neutrophils/100 leukocytes 75 % NRG Blood band neutrophils/100 leukocytes 1 % NRG Manual blood lymphocytes/100 leukocytes 17 % NRG Manual eosinophils/100 leukocytes in nose 0 % NRG Manual blood basophils/100 leukocytes 0 % NRG Blood erythrocyte morphology finding identification NORMAL NRG Blood lactic acid measurement (moles/vol ume) - 03/12/19 13:40 Blood lactic acid measurement (moles/volume) 0.95 mmol/L 0.50-2.00 Comprehensive metabolic panel - 03/12/19 13:40 Serum or plasma sodium measurement (moles/volume) 140 mmol/L 135-145 Serum or plasma potassium measurement (moles/volume) 3.8 mmol/L 3.6-5.0 Serum or plasma chloride measurement (moles/volume) 105 mmol/L 98-107 Carbon dioxide 22 mmol/L 21-32 Serum or plasma anion gap determination (moles/volume) 13 mmol/L 5-14 Serum or plasma urea nitrogen measurement (mass/volume ) 21 mg/dL 7-18 Serum or plasma creatinine measurement (mass/volume) 1.54 mg/dL 0.60-1.30 Serum or plasma urea nitrogen/creatinine mass ratio 14 NRG Serum or plasma creatinine measurement w ith calculation of estimated glomerular filtration rate 34 NRG Serum or plasma glucose measurement (mass/volume) 109 mg/dL 70-105 Serum or plasma calcium measurement (mass/volume) 10.1 mg/dL 8.5-10.1 Serum or plasma total bilirubin measurement (mass/volu me) 0.7 mg/dL 0.1-1.0 Serum or plasma alkaline phosphatase [place] surement (enzymatic activity/volume) 66 U/L 40-136 Serum or plasma aspartate aminotransfera se measurement (enzymatic activity/volume) 14 U/L 5-34 Serum or plasma alanine aminotransferase measurement (enzymatic activity/volume) 9 U/L 0-55 Serum or plasma protein measurement (mass/volume) 6.6 g/dL 6.4-8.2 Serum or plasma albumin measurement (mass/volume) 4.4 g/dL 3.2-4.5 CALCIUM CORRECTED 9.8 mg/dL 8.5-10.1 Complete urinalysis with reflex to cultu re - 03/12/19 14:25 Urine color determination YELLOW NRG Urine clarity determination CLEAR NR G Urine pH measurement by test strip 8.0 5-9 Specific gravity of urine by test strip 1.015 1.016-1.022 Urine protein assay by test strip, semi-quantitative NEGATIVE NEGATIVE Urine glucose detection by automated test strip NE GATIVE NEGATIVE Erythrocytes detection in urine sediment by light micr oscopy NEGATIVE NEGATIVE Urine ketones detection by automated test strip NE GATIVE NEGATIVE Urine nitrite detection by test strip NEGATIVE NEGATIVE Urine total bilirubin detection by test strip NEGA TIVE NEGATIVE Urine urobilinogen measurement by automated test strip (mass/volume) 0.2 mg/dL < = 1.0 Urine leukocyte esterase detection by dipstick NEG ATIVE NEGATIVE Automated urine sediment erythrocyte cou nt by microscopy (number/high power field) NONE NRG Automated urine sediment leukocyte count by microscopy (number/high power field) NONE NRG Bacteria detection in urine sediment by light microsco py FEW NRG Squamous epithelial cells detection in u rine sediment by light microscopy 5-10 NRG Crystals detection in urine sediment by light microsco py PRESENT NRG Casts detection in urine sediment by light microscopy NONE NRG Mucus detection in urine sediment by light microscopy NEGATIVE NRG Complete urinalysis with reflex to culture NO NRG Amorphous sediment detection in urine sediment by ligh t microscopy FEW DIANA PHOSPHATE NRG Complete blood count (CBC) with automate d white blood cell (WBC) differential - 06/21/19 11:50 Blood leukocytes automated count (number/volume) 5.8 10*3/uL 4.3-11.0 Blood erythrocytes automated count (number/volume) 3.68 10*6/uL 4.35-5.85 Venous blood hemoglobin measurement (mass/volume) 12.4 g/dL 11.5-16.0 Blood hematocrit (volume fraction) 36 % 35-52 Automated erythrocyte mean corpuscular volume 98 [ foz_us] 80-99 Automated erythrocyte mean corpuscular h emoglobin (mass per erythrocyte) 34 pg 25-34 Automated erythrocyte mean corpuscular h emoglobin concentration measurement (mass/volume) 34 g/dL 32-36 Automated erythrocyte distribution width ratio 12. 6 % 10.0- 14.5 Automated blood platelet count (count/volume) 151 10*3/uL 130-400 Automated blood platelet mean volume measurement 9.9 [foz_us] 7.4-10.4 Automated blood neutrophils/100 leukocytes 77 % 42-75 Automated blood lymphocytes/100 leukocytes 15 % 12-44 Blood monocytes/100 leukocytes 7 % 0-12 Automated blood eosinophils/100 leukocytes 0 % 0-10 Automated blood basophils/100 leukocytes 0 % 0-10 Blood neutrophils automated count (number/volume) 4.5 10*3 1.8-7.8 Blood lymphocytes automated count (number/volume) 0.9 10*3 1.0-4.0 Blood monocytes automated count (number/volume) 0. 4 10*3 0.0-1.0 Automated eosinophil count 0.0 10*3/uL 0 .0-0.3 Automated blood basophil count (count/volume) 0.0 10*3/uL 0.0-0.1 Encounters ACCT No. Visit Date/Time Discharge Status Pt. Type Provider Facility Loc./Unit Complaint [id number] 09/22/2018 06:42:00 09/22/2018 08:05: 00 DIS Outpatient ELMER BEAULIEU [id number] 09/11/2018 16:47:00 09/11/2018 16:54: 00 DIS Outpatient Antoni Burks [id number] 09/08/2018 07:06:00 09/08/2018 08:52: 00 DIS Outpatient Antoni Burks [id number] 08/25/2018 07:08:00 08/25/2018 08:55: 00 DIS Outpatient Antoni Burks [id number] 08/10/2018 08:13:00 08/10/2018 09:40: 00 DIS Outpatient Antoni Burks [id number] 07/30/2018 11:23:00 07/30/2018 14:10: 00 DIS Outpatient [facility] [id number] 11/26/2016 06:27:00 11/26/2016 08:54: 00 DIS Outpatient TRAM AVILES [id number] 11/20/2016 11:31:00 11/20/2016 23:59: 00 DIS Outpatient TRAM AVILES [id number] 11/17/2016 10:36:00 11/17/2016 23:59: 00 DIS Outpatient TRAM AVILES [id number] 11/24/2016 13:14:10 Document Registration [id number] 03/12/2019 12:43:00 16:00:00 DIS Emergency HOOD RODRIGEZ MD Via [facility] [address] ER FS VOMITING [id number] 03/01/2019 08:25:00 14:18:00 DIS Inpatient NICKOLAS COY, RICK Rivera Via [facility] [address] 4TH INTRACTABLE N/V,CHONIC PAIN,HYPOKALEMIA,OPIATE W/D [id number] 01/01/2019 14:09:00 17:15:00 DIS Emergency NGOC CASTRO MD Via [facility] [address] ER FS LT LEG PAIN [id number] 10/30/2018 13:34:00 14:16:00 DIS Emergency TOMASA DOUGLASS DO Via [facility] [address] ER FS UTI FOLLOW UP [id number] 10/29/2018 13:12:00 14:26:00 DIS Emergency JENNIFER SANTA MD Via [facility] [address] ER FS UTI [id number] 10/28/2018 16:06:00 19:12:00 DIS Emergency GONZALES YBARRA DO Via [facility] [address] ER FS VOMITTING [id number] 10/27/2018 11:33:00 14:27:00 DIS Emergency FIDEL RIBEIRO DO Via [facility] [address] ER FS VOMITING; DIARRHEA [id number] 10/20/2018 13:10:00 23:59:59 CLS Outpatient DIANE COY, MELINDA V [facility] [address] RAD RULE OUT IJ THROMBOSIS [id number] 10/17/2018 15:14:00 23:59:59 CLS Outpatient DIANE COY, MELINDA V [facility] [address] RAD CHECK PORT PATENCY [id number] 07/05/2018 15:53:00 22:16:00 DIS Emergency RENAN LOVETT DO Via [facility] [address] ER FS UTI,VOMITING [id number] 05/24/2018 08:53:00 019 12:28:00 DIS Emergency ANA MENON DO Via [facility] [address] ER FS N V; BACK/RT ARM PAIN [id number] 06/21/2019 12:24:00 Document Registration
[2019-06-21 12:38] LABS: POTASSIUM 3.8 MMOL/L (3.6-5.0)
[2019-06-21 12:39] LABS: ALBUMIN 4.2 GM/DL (3.2-4.5); BILIRUBIN,TOTAL 0.6 MG/DL (0.1-1.0); CREATININE SERUM 1.36 MG/DL (0.60-1.30); TOTAL PROTEIN 6.5 GM/DL (6.4-8.2)
[2019-06-21 12:59] LABS: CLARITY,URINE CLEAR; COLOR,URINE YELLOW; GLUCOSE, URINE (UA) NEGATIVE (NEGATIVE); PH,URINE 8.5 (5-9); PROTEIN,URINE 1+ (NEGATIVE)
[2019-06-21 13:00] LABS: BACTERIA,URINE NEGATIVE /HPF; BILIRUBIN,URINE NEGATIVE (NEGATIVE); KETONES,URINE TRACE (NEGATIVE); LEUKOCYTE ESTERASE ,URINE NEGATIVE (NEGATIVE); NITRITE,URINE NEGATIVE (NEGATIVE); SQUAMOUS EPITHELIAL CELL,UR 0-2 /HPF; WBC,URINE 0-2 /HPF
[2019-06-21] MEDS ORDERED: morphine INJ 10 MG/ML 1ML (SYR OR VIAL) ONE (13:18)
[2019-06-21] MEDS ORDERED: morphine INJ 10 MG/ML 1ML (SYR OR VIAL) IVP STA (13:26)
[2019-06-21] MEDS ORDERED: HEParin (CENTRAL IV FLUSH) 500 UNIT/5 ML SYR ONE (15:00)
[2019-06-21] MEDS ORDERED: HEParin (CENTRAL IV FLUSH) 500 UNIT/5 ML SYR IV ONE (15:15)
[2019-06-21 15:32] VITALS: BP 141/79
== END 2019-06-21 15:32 | disposition home or self-care (01) ==
LOC: EDUNIT# 11:32 → ER FS 11:37
DX: R19.7 Diarrhea, unspecified (principal); R11.2 Nausea with vomiting, unspecified; I10 Essential (primary) hypertension; Z85.79 Personal history of other malignant neoplasms of lymphoid, hematopoietic and related tissues; Z88.2 Allergy status to sulfonamides; Z91.040 Latex allergy status; Z88.1 Allergy status to other antibiotic agents; Z79.01 Long term (current) use of anticoagulants; Z94.84 Stem cells transplant status
CPT/HCPCS: 36415; 80053; 81000; 83605; 85025; 87040; 87088

== ENCOUNTER 2019-07-31 15:16 | Emergency (ER) | payer MEDICARE, OTHER ==
[~2019-07-31] VITALS: Ht 152.4 cm; Wt 55.1 kg
[2019-07-31] MEDS ORDERED: NS IV 1000 ML 1,000 ML IV SCH (16:15)
[2019-07-31] MEDS ORDERED: ONDANSETRON 4 MG/2 ML (SDV) Z0FRAN IVP ONE (16:15)
[2019-07-31] MEDS ORDERED: fentaNYL INJECTION 100 MCG/2 ML AMP IVP ONE (16:15)
[2019-07-31 17:24] LABS: HEMATOCRIT 34 % (35-52); HEMOGLOBIN 11.8 G/DL (11.5-16.0); MEAN CORPUSCULAR HEMOGLOBIN 34 PG (25-34); MEAN CORPUSCULAR HGB CONC 35 G/DL (32-36); MEAN CORPUSCULAR VOLUME 97 FL (80-99); MEAN PLATELET VOLUME 9.9 FL (7.4-10.4); PLATELET COUNT 133 10^3/uL (130-400); RED CELL DISTRIBUTION WIDTH 12.4 % (10.0-14.5)
[2019-07-31 17:25] LABS: BASOPHILS % (AUTO) 0 % (0-10); EOSINOPHILS % (AUTO) 0 % (0-10); LYMPHOCYTES # (AUTO) 0.7 X 10^3 (1.0-4.0); LYMPHOCYTES % (AUTO) 11 % (12-44); MONOCYTES # (AUTO) 0.3 X 10^3 (0.0-1.0); MONOCYTES % (AUTO) 5 % (0-12); NEUTROPHILS % (AUTO) 84 % (42-75)
[2019-07-31 17:34] LABS: ALBUMIN 4.2 GM/DL (3.2-4.5); BILIRUBIN,TOTAL 0.5 MG/DL (0.1-1.0); CALCIUM 9.8 MG/DL (8.5-10.1); CREATININE SERUM 1.51 MG/DL (0.60-1.30); POTASSIUM 3.8 MMOL/L (3.6-5.0); TOTAL PROTEIN 6.5 GM/DL (6.4-8.2)
[2019-07-31] MEDS ORDERED: diphenhydrAMINE 50 MG/ML INJ (BENADRYL) IVP ONE (17:45)
[2019-07-31] MEDS ORDERED: KETOROLAC 30 MG/ML VIAL IVP ONE (17:45)
[2019-07-31] MEDS ORDERED: morphine INJ 10 MG/ML 1ML (SYR OR VIAL) IVP STA (17:59)
[2019-07-31] MEDS ORDERED: PROMETHAZINE INJ 25 MG/ML (PHENERGAN) AMP IVP ONE (18:30)
--- NOTE | 2019-07-31 18:34 | ED General ---
General Chief Complaint: Abdominal/GI Problems Stated Complaint: NAUSEA,VOMITING Nursing Triage Note: Patient arrived by private vehicle by sister with chief complaint of nausea and vomiting. Pt was alert, orineted x 4 and ambulatory at arrival. Pt was escorted to overflow room. Pt's vital signs were taken. Pt has been throwing up since Wednesday she stated. She tried to call Ana Luisa Barragan APRN's office to see if she could get fluid, but they never called her back. Pt's sister decided to bring her out to ER. Pt took zofran at noon. Pt couldn't keep her pills down yesterday or today. Pt stated that her head hurts on the left side and she stated she never gets headaches. She had one previously, but they could not figure out why. Pt rated pain at a 6. Nursing Sepsis Screen: No Definite Risk (JENNIFER SANTA MD) History of Present Illness Date Seen by Provider: Jul 31, 2019 Time Seen by Provider: 17:15 Initial Comments 68-year-old female who has multiple myeloma gets IM chemotherapy every other week I believe It is not unusual for her to have episodes of nausea and vomiting she's doing this over the last almost 48 hours Also has a history of migraines and has now a severe headache She did not mention initially that she is on morphine chronically for pain and so has not kept her morphine down (JENNIFER SANTA MD) Allergies and Home Medications Allergies Coded Allergies: Sulfa (Sulfonamide Antibiotics) (Verified Allergy, Unknown, hives, 05/24/18) latex (Verified Allergy, Unknown, anaphylaxis, 05/24/18) vancomycin (Verified Allergy, Unknown, hives, 05/24/18) Home Medications Acyclovir 400 Mg Tablet, 400 MG PO BID, (Reported) LAST FILLED #180 07-10-18 Alprazolam 0.25 Mg Tablet, 0.25 MG PO TID PRN for ANXIETY, (Reported) LAST FILLED #84 09-30-18 Amlodipine Besylate 5 Mg Tablet, 5 MG PO DAILY, (Reported) Apixaban 5 Mg Tablet, 5 MG PO BID, (Reported) Calcium Carbonate/Vitamin D3 1 Each Tablet, 1 TAB PO BID, (Reported) Cholecalciferol (Vitamin D3) 2,000 Unit Tablet, 2,000 UNIT PO BID, (Reported) Cyanocobalamin 1,000 Mcg/Ml Inj, 1,000 MCG IM UD, (Reported) TAKES WEEKLY X 4 WEEKS THEN ONCE MONTHLY - FIRST DOSE 02-27-19 Diphenhydramine HCl 25 Mg Capsule, 100 MG PO HS PRN for ITCHING, (Reported) Docusate Sodium 100 Mg Capsule, 200 MG PO HS PRN for CONSTIPATION-1ST LINE, (Reported) Fexofenadine HCl 60 Mg Tablet, 60 MG PO BID PRN for ALLERGIES, (Reported) Gabapentin 600 Mg Tablet, 600 MG PO HS, (Reported) LAST FILLED #90 09-20-18 Granisetron 1 Each Patch.tdwk, 1 PATCH TD Romero, (Reported) Loperamide HCl 2 Mg Tablet, PO UD PRN for DIARRHEA, (Reported) Losartan Potassium 100 Mg Tablet, 50 MG PO DAILY, (Reported) TAKES 1/2 (100MG) TABLET Morphine Sulfate 30 Mg Tablet.er, 30 MG PO BID, (Reported) LAST FILLED #56 01-09-19 Morphine Sulfate 15 Mg Tablet, 15 MG PO TID PRN for PAIN-SEVERE (8-10), (Reported) LAST FILLED #28 11-15-18 Naloxegol Oxalate 25 Mg Tablet, 25 MG PO SuMoWe, (Reported) DOES NOT TAKE ON TUESDAYS FOR CHEMO Ondansetron 8 Mg Tab.rapdis, 8 MG PO TID PRN for NAUSEA/VOMITING-1ST LINE, (Reported) Pantoprazole Sodium 40 Mg Tablet.dr, 40 MG PO DAILY, (Reported) Phenazopyridine HCl 97.5 Mg Tablet, 97.5 MG PO DAILY PRN for URINARY PAIN, (Reported) Polyethylene Glycol 3350 17 Gm Powd.pack, 17 GM PO Q2H PRN for CONSTIPATION-2ND LINE, (Reported) Potassium Chloride 10 Meq Tab.er.prt, 10 MEQ PO BID, (Reported) LAST FILLED #180 10-19-18 Potassium Phosphate,Monobasic 500 Mg Tablet.alba, 1,000 MG PO BID, (Reported) Rosuvastatin Calcium 10 Mg Tablet, 10 MG PO DAILY, (Reported) Sennosides 8.6 Mg Tablet, 8.6 MG PO DAILY PRN for CONSTIPATION-5TH LINE, (Reported) Temazepam 15 Mg Capsule, 15 MG PO HS PRN for SLEEP, (Reported) LAST FILLED #28 11-16-18 Thyroid,Pork 30 Mg Tablet, 30 MG PO DAILY, (Reported) Tramadol HCl 50 Mg Tablet, 50 MG PO TID PRN for PAIN-MODERATE (5-7), (Reported) LAST FILLED #90 06-01-19 [[facility]] , INJ WEDNESDAY, (Reported) Patient Home Medication List Home Medication List Reviewed: Yes (LINDSEY THOMAS DO) Review of Systems Review of Systems Constitutional: No fever; other (positive for severe headache) EENTM: no symptoms reported Respiratory: no symptoms reported Cardiovascular: no symptoms reported Gastrointestinal: nausea, vomiting Genitourinary: no symptoms reported (JENNIFER SANTA MD) Past Cxrouwb-Erpkqz-Leuedu Hx Patient Social History Alcohol Use: Denies Use Recreational Drug Use: No 2nd Hand Smoke Exposure: No Recent Foreign Travel: No Contact w/Someone Who Travel: No Recent Infectious Disease Expo: No Recent Hopitalizations: No Physical Abuse: No Sexual Abuse: No Mistreated: No Fear: No (JENNIFER SANTA MD) Immunizations Up To Date Date of Pneumonia Vaccine: Sep 29, 2017 Date of Influenza Vaccine: Nov 29, 2018 (JENNIFER SANTA MD) Seasonal Allergies Seasonal Allergies: No (JENNIFER SANTA MD) Past Medical History Surgeries: Yes (colon resection; stem cell transplant) Appendectomy, Bowel Surgery, Gallbladder, Hysterectomy Respiratory: No Cardiac: Yes Hypertension Neurological: No Genitourinary: Yes Bladder Infection Gastrointestinal: No Musculoskeletal: No Endocrine: No HEENT: No Cancer: Yes (blood cancer; light chain proteins) Psychosocial: No Integumentary: No Blood Disorders: Yes (JENNIFER SANTA MD) Family Medical History Cancer, Stroke (JENNIFER SANTA MD) Physical Exam Vital Signs Vital Signs - First Documented 07/31/19 15:20 Temp 36.0 Pulse 90 Resp 18 B/P (MAP) 153/83 (106) Pulse Ox 100 O2 Delivery Room Air (LINDSEY THOMAS DO) Vital Signs Capillary Refill : Less Than 3 Seconds (JENNIFER SANTA MD) Height, Weight, BMI Height: 5'1.00" Weight: 127lbs. oz. 57.742712dv; 23.00 BMI Method:Stated General Appearance: Moderate Distress HEENT: PERRL/EOMI, Pharynx Normal Neck: Supple Respiratory: Lungs Clear Cardiovascular: Regular Rate, Rhythm Gastrointestinal: Non Tender, Soft Neurologic/Psychiatric: Alert, Oriented x3, No Motor/Sensory Deficits, calender operator helper II- XII Norm as Tested (JENNIFER SANTA MD) Progress/Results/Core Measures Suspected Sepsis Recent Fever Within 48 Hours: No Infection Criteria Present: None New/Unexplained Altered Menta: No Sepsis Screen: No Definite Risk SIRS Temperature: Pulse: 90 Respiratory Rate: 18 Laboratory Tests 07/31/19 16:58: White Blood Count 6.0 Blood Pressure 153 /83 Mean: 106 Laboratory Tests 07/31/19 16:58: Creatinine 1.51H, Platelet Count 133, Total Bilirubin 0.5 (JENNIFER SANTA MD) Results/Orders Lab Results Laboratory Tests Test 07/31/19 16:58 Range/Units White Blood Count 6.0 4.3-11.0 10^3/uL Red Blood Count 3.52 L 4.35-5.85 10^6/uL Hemoglobin 11.8 11.5-16.0 G/DL Hematocrit 34 L 35-52 % Mean Corpuscular Volume 97 80-99 FL Mean Corpuscular Hemoglobin 34 25-34 PG Mean Corpuscular Hemoglobin Concent 35 32-36 G/DL Red Cell Distribution Width 12.4 10.0-14.5 % Platelet Count 133 130-400 10^3/uL Mean Platelet Volume 9.9 7.4-10.4 FL Neutrophils (%) (Auto) 84 H 42-75 % Lymphocytes (%) (Auto) 11 L 12-44 % Monocytes (%) (Auto) 5 0-12 % Eosinophils (%) (Auto) 0 0-10 % Basophils (%) (Auto) 0 0-10 % Neutrophils # (Auto) 5.0 1.8-7.8 X 10^3 Lymphocytes # (Auto) 0.7 L 1.0-4.0 X 10^3 Monocytes # (Auto) 0.3 0.0-1.0 X 10^3 Eosinophils # (Auto) 0.0 0.0-0.3 10^3/uL Basophils # (Auto) 0.0 0.0-0.1 10^3/uL Sodium Level 140 135-145 MMOL/L Potassium Level 3.8 3.6-5.0 MMOL/L Chloride Level 102 98-107 MMOL/L Carbon Dioxide Level 22 21-32 MMOL/L Anion Gap 16 H 5-14 MMOL/L Blood Urea Nitrogen 16 7-18 MG/DL Creatinine 1.51 H 0.60-1.30 MG/DL Estimat Glomerular Filtration Rate 34 BUN/Creatinine Ratio 11 Glucose Level 112 H 70-105 MG/DL Calcium Level 9.8 8.5-10.1 MG/DL Corrected Calcium 9.6 8.5-10.1 MG/DL Total Bilirubin 0.5 0.1-1.0 MG/DL Aspartate Amino Transf (AST/SGOT) 13 5-34 U/L Alanine Aminotransferase (ALT/SGPT) 9 0-55 U/L Alkaline Phosphatase 74 40-136 U/L Total Protein 6.5 6.4-8.2 GM/DL Albumin 4.2 3.2-4.5 GM/DL (LINDSEY THOMAS DO) My Orders Orders - LINDSEY THOMAS DO Dexamethasone Injection (Decadron Inject (07/31/19 19:45) Magnesium 1 Gm/100 Ml Ivpb (Magnesium Romero (07/31/19 19:45) Hydromorphone Injection (Dilaudid Inject (07/31/19 19:45) (LINDSEY THOMAS DO) Medications Given in ED Current Medications Medications Dose Ordered Sig/Eligio Route Start Time Stop Time Status Last Admin Dose Admin Dexamethasone Sodium Phosphate 10 mg ONCE ONCE IV 07/31/19 19:45 07/31/19 19:46 DC 07/31/19 19:43 10 MG Diphenhydramine HCl 25 mg ONCE ONCE IVP 07/31/19 17:45 07/31/19 17:46 DC 07/31/19 17:58 25 MG Fentanyl Citrate 50 mcg ONCE ONCE IVP 07/31/19 16:15 07/31/19 16:20 DC 07/31/19 17:05 50 MCG Hydromorphone HCl 1 mg ONCE ONCE IV 07/31/19 19:45 07/31/19 19:46 DC 07/31/19 19:43 1 MG Ketorolac Tromethamine 30 mg ONCE ONCE IVP 07/31/19 17:45 07/31/19 17:46 DC 07/31/19 17:59 30 MG Ondansetron HCl 4 mg ONCE ONCE IVP 07/31/19 16:15 07/31/19 16:20 DC 6/22/20 17:05 4 MG Promethazine HCl 25 mg ONCE ONCE IVP 07/31/19 18:30 07/31/19 18:31 DC 07/31/19 18:33 25 MG (LINDSEY THOMAS DO) Vital Signs/I&O 07/31/19 15:20 Temp 36.0 Pulse 90 Resp 18 B/P (MAP) 153/83 (106) Pulse Ox 100 O2 Delivery Room Air (LINDSEY THOMAS DO) Vital Signs/I&O Capillary Refill : Less Than 3 Seconds (JENNIFER SANTA MD) Blood Pressure Mean: 106 Progress Note : Progress Note Patient was initially given Zofran and fentanyl and a liter of IV fluid She says that was of no benefit Further history taking revealed that she normally gets morphine every day and has had none for almost 48 hours she was therefore given IV morphine she continues to complain of nausea although her headache seemed far better after the morphine will get a CT head and augment her antinausea medicine with some IV Phenergan Dr. Silver to assume care at 1830 hrs. (JENNIFER SANTA MD) Progress Note : Progress Note @1930 - Patient updated on her CT head which is unremarkable. She states that she is still having a headache and would like to try an additional medication. @2014 - After the new medications patient states that she is feeling much better but still has a mild to moderate headache. She denies any other complaints and appears comfortable. (LINDSEY THOMAS DO) Diagnostic Imaging Diagonstic Imaging: CT Comments [facility]. [place], [place] NAME: RHIANNON MORSE [facility] REC#: [id number] PT STATUS: REG ER : 1950 PHYSICIAN: JENNIFER SANTA MD ADMIT DATE: 07/31/19/ER FS Signed Date of Exam:07/31/19 CT HEAD WO PROCEDURE: CT head without contrast. TECHNIQUE: Multiple contiguous axial images were obtained through the brain without the use of intravenous contrast. Auto Exposure Controls were utilized during the CT exam to meet ALARA standards for radiation dose reduction. INDICATION: Nausea, vomiting, and headache COMPARISON: 03/01/2019 FINDINGS: Ventricles are normal in size, shape, and position. There is no midline shift or mass effect. There is no hemorrhage or evidence of acute ischemia. No extra-axial fluid collection or mass is seen. Bony calvarium, paranasal sinuses and mastoids are clear. IMPRESSION: Negative CT head. Dictated by: Dictated on workstation # [id number] Dict: 07/31/191913 Trans: 07/31/191919 BILL [id number] Interpreted by: PADMAJA SPICER Electronically signed by: PADMAJA SPICER 07/31/191919 (LINDSEY THOMAS DO) Departure Impression Primary Impression: Headache Additional Impression: Nausea Disposition: HOME, SELF-CARE Condition: Stable Departure-Patient Inst. Decision time for Depature: 20:38 (LINDSEY THOMAS DO) Referrals: ANA LUISA BARRAGAN APRN (PCP) Primary Care Physician [facility] (Family) Primary Care Physician Patient Instructions: Migraines (DC), Headache, Adult (DC) Add. Discharge Instructions: Drink plenty of water at home. Follow-up with your doctor in the next 1-2 days. Return to the emergency Department immediately for new or worsening symptoms. JENNIFER SANTA MD Jul 31, 2019 18:34 LINDSEY THOMAS DO Jul 31, 2019 19:31
--- OUTSIDE RECORDS SUMMARY | 2019-07-31 18:34 | XMS REPORT | Continuity of Care Document ---
Author Organization Unknown Address Unknown Phone Unavailable Allergies Active Description Code Type Severity Reaction Onset Reported/Identified Relationship to Patient Clinical Status Yes LATEX, NATURAL RUBBER SEVERE ANAPHYLACTIC SHOCK Yes LATEX, NATURAL RUBBER SEVERE SEVERE Yes SULFA (SULFONAMIDE ANTIBIOTICS) MILD DERMATOLOGICAL - HIV Yes SULFA (SULFONAMIDE ANTIBIOTICS) MILD MILD Yes VANCOMYCIN UNKNOWN UNKNOWN Yes latex [id number] Drug Allergy Unknown anaphylaxis 05/24/2018 Yes Sulfa (Sulfonamide Antibiotics) [id number] Drug Allergy Unknown hives 019 Yes vancomycin [id number] Drug Allerg y Unknown hives 05/24/2018 Medications [...] Type Code Diagnosis Diagnosed By 11/26/2016 TRAM AVIELS 453.81 ACUTE VENOUS EMBOLISM AND THROMBOSIS OF SUPERFICIAL VEINS OF UPPER EXTREMITY 11/26/2016 TRAM AVILES I82.612 ACUTE EMBOLISM AND THOMBOS OF SUPERFIC VEINS OF L UP EXTREM 05/24/2018 MENON DO, ANA Ot C95.00 ACUTE LEUKEMIA OF UNSP CELL TYPE NOT [facility] 05/24/2018 MENON DO, ANA Ot R10.9 UNSPECIFIED [...] ACUTE LEUKEMIA OF UNSP CELL TYPE NOT [facility] 05/26/2018 MENON DO, ANA Ot R10.9 UNSPECIFIED ABDOMINAL PAIN 05/26/2018 MENON DO, ANA Ot R11.2 NAUSEA WITH VOMITING, UNSPECIFIED 05/26/2018 ANTELOPE DO, ANA Ot Z88.1 ALLERGY STATUS TO OTHER ANTIBIOTIC AGENT 05/26/2018 MENON DO, ANA Ot Z88.2 ALLERGY STATUS TO SULFONAMIDES STATUS 05/26/2018 MENON DO, ANA Ot Z91.040 LATEX ALLERGY STATUS 05/26/2018 ANTELOPE DO, ANA Ot Z92.21 PERSONAL HISTORY OF ANTINEOPLASTIC CHEMO 05/26/2018 MENON DO, ANA Ot C95.00 ACUTE LEUKEMIA OF UNSP CELL TYPE NOT [facility] 05/26/2018 MENON DO, ANA Ot R10.9 UNSPECIFIED ABDOMINAL PAIN 05/26/2018 MENON DO, ANA Ot R11.2 NAUSEA WITH VOMITING, UNSPECIFIED 05/26/2018 ANTELOPE DO, ANA Ot Z88.1 ALLERGY STATUS TO OTHER ANTIBIOTIC AGENT 05/26/2018 MENON DO, ANA Ot Z88.2 ALLERGY STATUS TO SULFONAMIDES STATUS 05/26/2018 MENON DO, ANA Ot Z91.040 LATEX ALLERGY STATUS 05/26/2018 ANTELOPE DO, ANA Ot Z92.21 PERSONAL HISTORY OF [...] ADJUSTMENT AND MANAGEMENT OF VAD 08/25/2018 Antoni Bukrs W 276.50 VOLUME DEPLETION, UNSPECIFIED 08/25/2018 Antoni [...] RIBEIRO DO Ot Z85.79 PRSNL HX OF [facility] NEOPL OF LYMPHOID, HE 10/27/2018 FIDEL RIBEIRO [...] RIBEIRO DO Ot Z85.79 PRSNL HX OF [facility] NEOPL OF LYMPHOID, HE 10/31/2018 FIDEL RIBEIRO [...] DOMAXWELLEN L Ot Z85.79 PRSNL HX OF [facility] OF LYMPHOID, HE 11/01/2018 ROVENSTINE DO [...] OF OTHER SPECIFIED PART 11/02/2018 DOUGLASS TOMASA BRICENO Ot Z90.710 ACQUIRED ABSENCE OF BOTH CERVIX [...] RICK OLMOS MD Ot Z79.8 99 OTHER PRISON (CURRENT) DRUG THERAPY 03/02/2019 RICK OLMOS MD [...] RICK OLMOS MD Ot Z79.8 99 OTHER [employer] (CURRENT) DRUG THERAPY 03/02/2019 RICK OLMOS MD [...] 4 STEM CELLS TRANSPLANT STATUS 04/03/2019 DIANE CYO, MELINDA V Ot Z45.2 ENCOUNTER FOR ADJUSTMENT AND MANAGEMENT 06/23/2019 HARDING DO, BRITTANY B Ot I10 ESSENTIAL (PRIMARY) HYPERTENSION 06/23/2019 HARDING DO, BRITTANY B Ot R11.2 NAUSEA WITH VOMITING, UNSPECIFIED 06/23/2019 HARDING DO, BRITTANY B Ot R19.7 DIARRHEA, UNSPECIFIED 06/23/2019 HARDING DO, BRITTANY B Ot Z79.0 1 PRISON (CURRENT) USE OF ANTICOAGULANT 06/23/2019 HARDING DO, BRITTANY B Ot Z85.7 9 [facility] 06/23/2019 HARDING DO, BRITTANY B Ot Z88.1 ALLERGY STATUS TO OTHER ANTIBIOTIC AGENT 06/23/2019 HARDING DO, BRITTANY B Ot Z88.2 ALLERGY STATUS TO SULFONAMIDES STATUS 06/23/2019 HARDING DO, BRITTANY B Ot Z91.0 40 LATEX ALLERGY STATUS 06/23/2019 HARDING DO, BRITTANY B Ot Z94.8 4 STEM CELLS TRANSPLANT STATUS 06/28/2019 HARDING DO, BRITTANY B Ot I10 ESSENTIAL (PRIMARY) HYPERTENSION 06/28/2019 HARDING DO, BRITTANY B Ot R11.2 NAUSEA WITH VOMITING, UNSPECIFIED 06/28/2019 HARDING DO, BRITTANY B Ot R19.7 DIARRHEA, UNSPECIFIED 06/28/2019 HARDING DO, BRITTANY B Ot Z79.0 1 [employer] (CURRENT) USE OF ANTICOAGULANT [facility] PRSNL HX OF [facility] OF LYMPHOID, HE 06/28/[facility].1 ALLERGY STATUS TO OTHER ANTIBIOTIC AGENT 06/28/2019 [facility] ALLERGY STATUS TO SULFONAMIDES STATUS 06/28/2019 [facility] Z91.0 40 LATEX ALLERGY STATUS 06/28/2019 [facility] Z94.8 4 STEM CELLS TRANSPLANT STATUS Procedures There is no data. Results Test Result Range Urinalysis - 11/20/16 12:37 Icotest N/A Negative Urine Volume Urine Volume Sufficient (10mL) Urine Yeast No Yeast present Urine-Appearance Clear Clear Urine-Bacteria 4+ Urine-Bilirubin Negative Negative Urine-Blood Negative Negative Urine-Color Yellow Colorless-[place] ow Urine-Epithelial Cells 0-5/HPF Urine-Glucose Negative Negative Urine-Ketones Negative Negative Urine-Leukocytes Negative Negative Urine-Nitrite Negative Negative Urine-Other Culture to follow Urine-pH 6.5 5-8.5 Urine-Protein Negative Negative Urine-RBC Negative Urine-Specific [place] 1.010 1.000-1 .030 Urine-WBC Rare/HPF Urobilinogen 0.2 E.U./dL 0.2-1.0 Urine Culture - 11/20/16 12:37 PRELIM CULTURE RESULTS >100,000 Gram Negativ e Lactose [employer] Instructor JENNY / ID to Follow CULTURE SOURCE [id number]\ Sensi - 11/20/16 12:37 FINAL CULTURE RESULTS Klebsiella pneumoniae (Winner te 1) Ampicillin/Sulbactam <=8/4 Ampicillin 16 Amoxicillin/K [...] - 11/26/16 10:32 Surg Path Sent to [facility] Complete blood count (CBC) with automate [...] Negative Urine-Blood Negative Negative Urine-Color Yellow Colorless-[place] ow Urine-Glucose Negative Negative Urine-Ketones Negative Negative Urine-Leukocytes Negative Negative Urine-Nitrite Negative Negative Urine-Other Urine Saved if Culture Need ed (48hrs from time of collection) Urine-pH 7.0 5-8.5 Urine-Protein Negative Negative Urine-RBC Rare/HPF Urine-Specific [place] 1.010 1.000-1 .030 Urine-WBC Negative Urobilinogen 0.2 [...] blood basophil count (count/volume) 0.0 10*3/uL 0.0-0.1 Blood lactic acid measurement (moles/vol ume) - 06/21/19 11:50 Blood lactic acid measurement (moles/volume) 1.16 mmol/L 0.50-2.00 Comprehensive metabolic panel - 06/21/19 11:50 Serum or plasma sodium measurement (moles/volume) 141 mmol/L 135-145 Serum or plasma potassium measurement (moles/volume) 3.8 mmol/L 3.6-5.0 Serum or plasma chloride measurement (moles/volume) 107 mmol/L 98-107 Carbon dioxide 22 mmol/L 21-32 Serum or plasma anion gap determination (moles/volume) 12 mmol/L 5-14 Serum or plasma urea nitrogen measurement (mass/volume ) 17 mg/dL 7-18 Serum or plasma creatinine measurement (mass/volume) 1.36 mg/dL 0.60-1.30 Serum or plasma urea nitrogen/creatinine mass ratio 13 NRG Serum or plasma creatinine measurement w ith calculation of estimated glomerular filtration rate 39 NRG Serum or plasma glucose measurement (mass/volume) 121 mg/dL 70-105 Serum or plasma calcium measurement (mass/volume) 10.0 mg/dL 8.5-10.1 Serum or plasma total bilirubin measurement (mass/volu me) 0.6 mg/dL 0.1-1.0 Serum or plasma alkaline phosphatase [place] surement (enzymatic activity/volume) 84 U/L 40-136 Serum or plasma aspartate aminotransfera se measurement (enzymatic activity/volume) 15 U/L 5-34 Serum or plasma alanine aminotransferase measurement (enzymatic activity/volume) 9 U/L 0-55 Serum or plasma protein measurement (mass/volume) 6.5 g/dL 6.4-8.2 Serum or plasma albumin measurement (mass/volume) 4.2 g/dL 3.2-4.5 CALCIUM CORRECTED 9.8 mg/dL 8.5-10.1 Bacterial blood culture - 06/21/19 11:50 Bacterial blood culture NG NRG Complete urinalysis with reflex to cultu re - 06/21/19 12:45 Urine color determination YELLOW NRG Urine clarity determination CLEAR NR G Urine pH measurement by test strip 8.5 5-9 Specific gravity of urine by test strip 1.020 1.016-1.022 Urine protein assay by test strip, semi-quantitative 1+ NEGATIVE Urine glucose detection by automated test strip NE GATIVE NEGATIVE Erythrocytes detection in urine sediment by light micr oscopy NEGATIVE NEGATIVE Urine ketones detection by automated test strip TR MICHAEL NEGATIVE Urine nitrite detection by test strip [...] urinalysis with reflex to culture NO NRG Bacterial urine culture - 06/21/19 12:45 Bacterial urine culture 3 OR MORE NRG COLONY COUNT 40,000 CFU/ML NRG SUSCEPTIBILITY SUGGESTING PROBABLE COLLECTION NRG MRSA SCREEN CONTAMINATION WITH SKIN MITRA NRG RAPID ID NO SUSCEPTIBILITY PERFORMED N RG Bacterial blood culture - 06/21/19 12:45 Bacterial blood culture NG NRG Complete blood count (CBC) with automate d white blood cell (WBC) differential - 07/31/19 16:58 Blood leukocytes automated count (number/volume) 6.0 10*3/uL 4.3-11.0 Blood erythrocytes automated count (number/volume) 3.52 10*6/uL 4.35-5.85 Venous blood hemoglobin measurement (mass/volume) 11.8 g/dL 11.5-16.0 Blood hematocrit (volume fraction) 34 % 35-52 Automated erythrocyte mean corpuscular volume 97 [ foz_us] 80-99 Automated erythrocyte mean corpuscular h emoglobin (mass per erythrocyte) 34 pg 25-34 Automated erythrocyte mean corpuscular h emoglobin concentration measurement (mass/volume) 35 g/dL 32-36 Automated erythrocyte distribution width ratio 12. 4 % 10.0- 14.5 Automated blood platelet count (count/volume) 133 10*3/uL 130-400 Automated blood platelet mean volume measurement 9.9 [foz_us] 7.4-10.4 Automated blood neutrophils/100 leukocytes 84 % 42-75 Automated blood lymphocytes/100 leukocytes 11 % 12-44 Blood monocytes/100 leukocytes 5 % 0-12 Automated blood eosinophils/100 leukocytes 0 % 0-10 Automated blood basophils/100 leukocytes 0 % 0-10 Blood neutrophils automated count (number/volume) 5.0 10*3 1.8-7.8 Blood lymphocytes automated count (number/volume) 0.7 10*3 1.0-4.0 Blood monocytes automated count (number/volume) 0. 3 10*3 0.0-1.0 Automated eosinophil count 0.0 10*3/uL 0 .0-0.3 Automated blood basophil count (count/volume) 0.0 10*3/uL 0.0-0.1 Comprehensive metabolic panel - 07/31/19 16:58 Serum or plasma sodium measurement (moles/volume) 140 mmol/L 135-145 Serum or plasma potassium measurement (moles/volume) 3.8 mmol/L 3.6-5.0 Serum or plasma chloride measurement (moles/volume) 102 mmol/L 98-107 Carbon dioxide 22 mmol/L 21-32 Serum or plasma anion gap determination (moles/volume) 16 mmol/L 5-14 Serum or plasma urea nitrogen measurement (mass/volume ) 16 mg/dL 7-18 Serum or plasma creatinine measurement (mass/volume) 1.51 mg/dL 0.60-1.30 Serum or plasma urea nitrogen/creatinine mass ratio 11 NRG Serum or plasma creatinine measurement w ith calculation of estimated glomerular filtration rate 34 NRG Serum or plasma glucose measurement (mass/volume) 112 mg/dL 70-105 Serum or plasma calcium measurement (mass/volume) 9.8 mg/dL 8.5-10.1 Serum or plasma total bilirubin measurement (mass/volu me) 0.5 mg/dL 0.1-1.0 Serum or plasma alkaline phosphatase garfield surement (enzymatic activity/volume) 74 U/L 40-136 Serum or plasma aspartate aminotransfera se measurement (enzymatic activity/volume) 13 U/L 5-34 Serum or plasma alanine aminotransferase measurement (enzymatic activity/volume) 9 U/L 0-55 Serum or plasma protein measurement (mass/volume) 6.5 g/dL 6.4-8.2 Serum or plasma albumin measurement (mass/volume) 4.2 g/dL 3.2-4.5 CALCIUM CORRECTED 9.6 mg/dL 8.5-10.1 Encounters ACCT No. Visit Date/Time Discharge Status Pt. Type Provider Facility Loc./Unit Complaint [id number] 09/22/2018 06:42:00 09/22/2018 08:05: 00 DIS Outpatient ELMER BEAULIEU [id number] 09/11/2018 16:47:00 09/11/2018 16:54: 00 DIS Outpatient Antoni Burks [id number] 09/08/2018 07:06:00 09/08/2018 08:52: 00 DIS Outpatient Antoni Burks [id number] 08/25/2018 07:08:00 08/25/2018 08:55: 00 DIS Outpatient Antoni Burks [id number] 08/10/2018 08:13:00 08/10/2018 09:40: 00 DIS Outpatient Antoni Burks [id number] 07/30/2018 11:23:00 07/30/2018 14:10: 00 DIS Outpatient [facility] ER [id number] 11/26/2016 06:27:00 11/26/2016 08:54: 00 DIS Outpatient TRAM AVILES [id number] 11/20/2016 11:31:00 11/20/2016 23:59: 00 DIS Outpatient TRAM AVILES [id number] 11/17/2016 10:36:00 11/17/2016 23:59: 00 DIS Outpatient TRAM AVILES [id number] 11/24/2016 13:14:10 Document Registration [id number] 06/21/2019 11:37:00 15:32:00 DIS Outpatient BRITTANY HARDING DO Via [facility] ER FS NAUSEA; VOMITING; DIARR HEA [id number] 03/12/2019 12:43:00 16:00:00 DIS Emergency RAIN COY, HOOD [place] Via [facility] ER FS VOMITING [id number] 03/01/2019 08:25:00 14:18:00 DIS Inpatient NICKOLAS COY, RICK Rivera Via [facility] 4TH INTRACTABLE N/V,CHONIC PAIN,HYPOKALEMIA,OPIATE W/D [id number] 01/01/2019 14:09:00 17:15:00 DIS Emergency MATTHEW COY, NGOC Lewis Via [facility] ER FS LT LEG PAIN [id number] 10/30/2018 13:34:00 14:16:00 DIS Emergency TOMASA DOUGLASS DO Via [facility] ER FS UTI FOLLOW UP [id number] 10/29/2018 13:12:00 14:26:00 DIS Emergency JENNIFER SANTA MD Via [facility] ER FS UTI [id number] 10/28/2018 16:06:00 19:12:00 DIS Emergency GONZALES YBARRA DO Via [facility] ER FS VOMITTING [id number] 10/27/2018 11:33:00 14:27:00 DIS Emergency FIDEL RIBEIRO DO Via [facility] ER FS VOMITING; DIARRHEA [id number] 10/20/2018 13:10:00 23:59:59 CLS Outpatient DIANE COY, MELINDA V Via [facility] RAD RULE OUT IJ THROMBOSIS [id number] 10/17/2018 15:14:00 23:59:59 CLS Outpatient DIANE COY, MELINDA V Via [facility] RAD CHECK PORT PATENCY [id number] 07/05/2018 15:53:00 22:16:00 DIS Emergency RENAN LOVETT DO Via [facility] ER FS UTI,VOMITING [id number] 05/24/2018 08:53:00 12:28:00 DIS Emergency ANA MENON DO Via [facility] ER FS N V; BACK/RT ARM PAIN [id number] 07/31/2019 15:17:[address] Emergency WILLIAM PORTILLO DO Via [facility] ER FS NAUSEA,VOMITING [id number] 04/18/2018 09:00:00 04/18/2018 23:59: 59 [facility] Outpatient [facility] AURELIANO HERNANDEZ
--- NOTE | 2019-07-31 19:19 | Diagnostic Imaging Report ---
PROCEDURE: CT head without contrast. TECHNIQUE: Multiple contiguous axial images were obtained through the brain without the use of intravenous contrast. Auto Exposure Controls were utilized during the CT exam to meet ALARA standards for radiation dose reduction. INDICATION: Nausea, vomiting, and headache COMPARISON: 03/01/2019 FINDINGS: Ventricles are normal in size, shape, and position. There is no midline shift or mass effect. There is no hemorrhage or evidence of acute ischemia. No extra-axial fluid collection or mass is seen. Bony calvarium, paranasal sinuses and mastoids are clear. IMPRESSION: Negative CT head. Dictated by: Dictated on workstation # [id number]
[2019-07-31] MEDS ORDERED: DEXAMETHASONE 4 MG/ML SDV (DECADRON) IV ONE (19:45)
[2019-07-31] MEDS ORDERED: HYDROmorphone 2 MG/ML VIAL (DILAUDID) IV ONE (19:45)
[2019-07-31] MEDS ORDERED: MAGNESIUM 1 GM/100 ML IVPB 100 ML IV SCH (19:45)
[2019-07-31 20:50] VITALS: BP 123/53
== END 2019-07-31 20:50 | disposition home or self-care (01) ==
LOC: EDUNIT# 15:16 → ER FS 15:17
DX: R51 Headache (principal); R11.2 Nausea with vomiting, unspecified; C90.00 Multiple myeloma not having achieved remission; I10 Essential (primary) hypertension; Z88.2 Allergy status to sulfonamides; Z91.040 Latex allergy status; Z88.1 Allergy status to other antibiotic agents; Z79.01 Long term (current) use of anticoagulants; Z94.84 Stem cells transplant status
CPT/HCPCS: 36415; 70450; 80053; 85025; 96361; 96365; 96375

== ENCOUNTER 2020-01-19 13:09 | Emergency (ER) | payer MEDICARE, OTHER ==
[~2020-01-19] VITALS: Ht 154.9 cm; Wt 58.6 kg
[~2020-01-19 13:09] MED LIST changes: +ALPR.25T PO; -ALPR0.254 PO; +AMLO-250 PO; -AMLO5TAB9 PO; -PANT40TA3 PO; +PANT40TA52 PO
[2020-01-19] MEDS ORDERED: PROMETHAZINE INJ 25 MG/ML (PHENERGAN) AMP IM ONE (13:45)
[2020-01-19] MEDS ORDERED: diphenhydrAMINE 25 MG TAB (BENADRYL) PO ONE (13:45)
--- NOTE | 2020-01-19 13:49 | ED Headache ---
General Chief Complaint: Head/Cervical Problems Stated Complaint: HEADACHE Source: patient Exam Limitations: no limitations History of Present Illness Date Seen by Provider: Jan 19, 2020 Time Seen by Provider: 13:33 Initial Comments The patient presents to the ER by private conveyance from home with chief complaint that since yesterday afternoon she has had a frontal headache with light sensitivity. She says she had this once before earlier in the year and wa s worked up inpatient and it was decided it was a migraine. She does not have a prior history of migraines. She is not having any nausea although she did take an ondansetron earlier today because she does have frequent nausea with her multiple myeloma. She did take her chemotherapy earlier this week and has not felt well since that time. She has not had any fevers chills cough shortness of breath diarrhea or constipation. She went to Dr. Barragan's office today and was given a shot of Toradol at 830 which she says has not really helped yet. Allergies and Home Medications Allergies Coded Allergies: Sulfa (Sulfonamide Antibiotics) (Verified Allergy, Unknown, hives, 05/24/18) latex (Verified Allergy, Unknown, anaphylaxis, 05/24/18) vancomycin (Verified Allergy, Unknown, hives, 05/24/18) Home Medications ALPRAZolam 0.25 Mg Tablet, 0.25 MG PO TID PRN for ANXIETY, (Reported) LAST FILLED #84 09-30-18 Acyclovir 400 Mg Tablet, 400 MG PO BID, (Reported) LAST FILLED #180 07-10-18 Amlodipine Besylate 5 Mg Tablet, 5 MG PO DAILY, (Reported) Apixaban 5 Mg Tablet, 5 MG PO BID, (Reported) Calcium Carbonate/Vitamin D3 1 Each Tablet, 1 TAB PO BID, (Reported) Cholecalciferol (Vitamin D3) 2,000 Unit Tablet, 2,000 UNIT PO BID, (Reported) Cyanocobalamin 1,000 Mcg/Ml Inj, 1,000 MCG IM UD, (Reported) TAKES WEEKLY X 4 WEEKS THEN ONCE MONTHLY - FIRST DOSE 120-20 Diphenhydramine HCl 25 Mg Capsule, 100 MG PO HS PRN for ITCHING, (Reported) Docusate Sodium 100 Mg Capsule, 200 MG PO HS PRN for CONSTIPATION-1ST LINE, (Reported) Fexofenadine HCl 60 Mg Tablet, 60 MG PO BID PRN for ALLERGIES, (Reported) Gabapentin 600 Mg Tablet, 600 MG PO HS, (Reported) LAST FILLED #90 09-20-18 Granisetron 1 Each Patch.tdwk, 1 PATCH TD Romero, (Reported) Loperamide HCl 2 Mg Tablet, PO UD PRN for DIARRHEA, (Reported) Losartan Potassium 100 Mg Tablet, 50 MG PO DAILY, (Reported) TAKES 1/2 (100MG) TABLET Morphine Sulfate 30 Mg Tablet.er, 30 MG PO BID, (Reported) LAST FILLED #56 01-09-19 Morphine Sulfate 15 Mg Tablet, 15 MG PO TID PRN for PAIN-SEVERE (8-10), (Reported) LAST FILLED #28 11-15-18 Naloxegol Oxalate 25 Mg Tablet, 25 MG PO SuMoWe, (Reported) DOES NOT TAKE ON TUESDAYS FOR CHEMO Ondansetron 8 Mg Tab.rapdis, 8 MG PO TID PRN for NAUSEA/VOMITING-1ST LINE, (Reported) Pantoprazole Sodium 40 Mg Tablet.dr, 40 MG PO DAILY, (Reported) Phenazopyridine HCl 97.5 Mg Tablet, 97.5 MG PO DAILY PRN for URINARY PAIN, (Reported) Polyethylene Glycol 3350 17 Gm Powd.pack, 17 GM PO Q2H PRN for CONSTIPATION-2ND LINE, (Reported) Potassium Chloride 10 Meq Tab.er.prt, 10 MEQ PO BID, (Reported) LAST FILLED #180 10-19-18 Potassium Phosphate,Monobasic 500 Mg Tablet.alba, 1,000 MG PO BID, (Reported) Rosuvastatin Calcium 10 Mg Tablet, 10 MG PO DAILY, (Reported) Sennosides 8.6 Mg Tablet, 8.6 MG PO DAILY PRN for CONSTIPATION-5TH LINE, (Reported) Temazepam 15 Mg Capsule, 15 MG PO HS PRN for SLEEP, (Reported) LAST FILLED #28 11-16-18 Thyroid,Pork 30 Mg Tablet, 30 MG PO DAILY, (Reported) Tramadol HCl 50 Mg Tablet, 50 MG PO TID PRN for PAIN-MODERATE (5-7), (Reported) LAST FILLED #90 06-01-18 [[place]] , INJ WEDNESDAY, (Reported) Patient Home Medication List Home Medication List Reviewed: Yes Review of Systems Review of Systems Constitutional: No chills, No fever, No weakness Eyes: See HPI; Denies Blindness, Denies Blurred Vision, Denies Foreign Body Sensation Ears, Nose, Mouth, Throat: denies ear pain, denies ear discharge Respiratory: No cough, No short of breath Cardiovascular: No chest pain, No edema, No palpitations Gastrointestinal: No abdominal pain, No constipation, No diarrhea, No loss of appetite, No vomiting Genitourinary: No discharge, No dysuria Musculoskeletal: No back pain, No joint pain All Other Systems Reviewed Negative Unless Noted: Yes Past Dsbourv-Heyark-Cbvlog Hx Patient Social History Alcohol Use: Denies Use Recreational Drug Use: No Smoking Status: Never a Smoker 2nd Hand Smoke Exposure: No Recent Foreign Travel: No Contact w/Someone Who Travel: No Recent Hopitalizations: No Immunizations Up To Date Date of Pneumonia Vaccine: Sep 29, 2017 Date of Influenza Vaccine: Nov 29, 2018 Seasonal Allergies Seasonal Allergies: No Past Medical History Surgeries: Yes (colon resection; stem cell transplant) Appendectomy, Bowel Surgery, Gallbladder, Hysterectomy Respiratory: No Cardiac: Yes Hypertension Neurological: No Genitourinary: Yes Bladder Infection Gastrointestinal: No Musculoskeletal: No Endocrine: No HEENT: No Cancer: Yes (blood cancer; light chain proteins) Psychosocial: No Integumentary: No Blood Disorders: Yes Family Medical History Cancer, Stroke Physical Exam Vital Signs Capillary Refill : Height, Weight, BMI Height: 5'1.00" Weight: 127lbs. oz. 57.562034mh; 23.00 BMI Method:Stated General Appearance: WD/WN, no apparent distress HEENT: PERRL/EOMI, normal ENT inspection, TMs normal, pharynx normal (Moist oral mucosa), other (No tenderness over maxillary sinuses) Neck: full range of motion, supple, normal inspection Cardiovascular: normal peripheral pulses, regular rate, rhythm Respiratory: lungs clear, normal breath sounds, no respiratory distress, no accessory muscle use Gastrointestinal: non tender, soft Extremities: non-tender, normal inspection Psychiatric: alert, oriented x 3 Crainal Nerves: normal hearing, normal speech, PERRL Motor/Sensory: no motor deficit, no sensory deficit Skin: normal color, warm/dry Progress/Results/Core Measures Progress Progress Note : Time: 13:46 Progress Note We discussed with the patient our concern for migraine starting so late in life and she agreed. We did offer to do some labs and work-up including urinalysis however she is not seeming to have any specific review of system complaints ot her than the headache at this time. She says she would prefer just to try a treatment and if that does not work and she would return for further evaluation. Were going to try Benadryl and Phenergan and encouraged her to go home and take Tylenol, ibuprofen and get some sleep. If she wakes up and she is not feeling any better than we have encouraged her to return to the ER or follow-up with her primary care provider. Departure Impression Primary Impression: Migraine Qualified Codes: G43.909 - Migraine, unspecified, not intractable, without status migrainosus Disposition: HOME, SELF-CARE Condition: Stable Departure-Patient Inst. Decision time for Depature: 13:48 Referrals: [facility] (PCP) Primary Care Physician ANA LUISA BARRAGAN APRN (Family) Primary Care Physician Patient Instructions: Migraines (DC) Add. Discharge Instructions: We have given you a dose of Phenergan and Benadryl both of which will make you drowsy. Go home and take some Tylenol 1000 mg and 600 mg of ibuprofen. Drink a glass of water and get some sleep. If after you wake up you are still having significant pain or you are experiencing new symptoms then I would encourage you to return to the nearest ER for further evaluation. Alternatively follow-up with your primary care doctor's office. All discharge instructions reviewed with patient and/or family. Voiced understanding. ERIKA SANABRIA Jan 19, 2020 13:49
--- NOTE | 2020-01-19 13:49 | NUR ---
Patient rec'd medications per eMAR. Pt requests for immediate discharge to get home and rest, will return if continued unrelieved headache. Dr Davenport agreeable to this. Pt has a ride to call for.
[2020-01-19 13:56] VITALS: BP 128/76
--- NOTE | 2020-01-19 13:56 | NUR ---
Pt discharged to home after review of home instructions provided. Questions answered and pt is discharged to her ride, her brother.
== END 2020-01-19 13:56 | disposition home or self-care (01) ==
LOC: EDUNIT# 13:09 → ER FS 13:11
DX: G43.909 Migraine, unspecified, not intractable, without status migrainosus (principal); I10 Essential (primary) hypertension; Z80.9 Family history of malignant neoplasm, unspecified; Z85.6 Personal history of leukemia; Z88.2 Allergy status to sulfonamides; Z91.040 Latex allergy status; Z88.1 Allergy status to other antibiotic agents; Z79.01 Long term (current) use of anticoagulants
CPT/HCPCS: 99284

== ENCOUNTER 2020-04-05 15:43 | Emergency (ER) | payer MEDICARE, OTHER ==
[~2020-04-05] VITALS: Ht 154 cm; Wt 57.0 kg
[2020-04-05] MEDS ORDERED: morphine INJ 10 MG/ML 1ML (SYR OR VIAL) IVP STA (15:58)
[2020-04-05] MEDS ORDERED: PROMETHAZINE INJ 25 MG/ML (PHENERGAN) AMP IVP ONE (16:00)
[2020-04-05] MEDS ORDERED: LACTATED RINGERS 1,000 ML IV ONE (16:00)
--- NOTE | 2020-04-05 16:13 | ED GI ---
General Stated Complaint: NAUSEA,VOMITING,LEG/BACK PAIN Source of Information: Patient Exam Limitations: No Limitations History of Present Illness Date Seen by Provider: Apr 05, 2020 Time Seen by Provider: 15:44 Initial Comments Patient presents to the ER from home by private conveyance with chief complaint of nausea and dry heaves all day today. She took 8 mg Zofran provided by her oncologist at cancer [facility] and when that did not improve her she went in for her weekly dose of chemotherapy Velcade and they also gave her a dose of Zofran and a liter of fluids IV. She says she felt better but now the nausea medicine has worn off and she is not due for more and she continues to have dry heaves. She has had poor fluid intake. Recently they went from every other week to weekly and she has not been tolerating the nausea very well. She is treated for multiple myeloma. Primary care by Dr. Barragan. She denies any fever cough chills shortness of air sick contacts dysuria falls weakness. At home she has Zofran 8 mg every 8 hours. This afternoon she also started experiencing some pain in both her legs which was new and she says it feels crampy. Allergies and Home Medications Allergies Coded Allergies: Sulfa (Sulfonamide Antibiotics) (Verified Allergy, Unknown, hives, 05/24/18) latex (Verified Allergy, Unknown, anaphylaxis, 05/24/18) vancomycin (Verified Allergy, Unknown, hives, 05/24/18) Home Medications ALPRAZolam 0.25 Mg Tablet, 0.25 MG PO TID PRN for ANXIETY, (Reported) LAST FILLED #84 09-30-18 Acyclovir 400 Mg Tablet, 400 MG PO BID, (Reported) LAST FILLED #180 07-10-18 Amlodipine Besylate 5 Mg Tablet, 5 MG PO DAILY, (Reported) Apixaban 5 Mg Tablet, 5 MG PO BID, (Reported) Calcium Carbonate/Vitamin D3 1 Each Tablet, 1 TAB PO BID, (Reported) Cholecalciferol (Vitamin D3) 2,000 Unit Tablet, 2,000 UNIT PO BID, (Reported) Cyanocobalamin 1,000 Mcg/Ml Inj, 1,000 MCG IM UD, (Reported) TAKES WEEKLY X 4 WEEKS THEN ONCE MONTHLY - FIRST DOSE 02-27-19 Diphenhydramine HCl 25 Mg Capsule, 100 MG PO HS PRN for ITCHING, (Reported) Docusate Sodium 100 Mg Capsule, 200 MG PO HS PRN for CONSTIPATION-1ST LINE, (Reported) Fexofenadine HCl 60 Mg Tablet, 60 MG PO BID PRN for ALLERGIES, (Reported) Gabapentin 600 Mg Tablet, 600 MG PO HS, (Reported) LAST FILLED #90 09-20-18 Granisetron 1 Each Patch.tdwk, 1 PATCH TD Romero, (Reported) Loperamide HCl 2 Mg Tablet, PO UD PRN for DIARRHEA, (Reported) Losartan Potassium 100 Mg Tablet, 50 MG PO DAILY, (Reported) TAKES 1/2 (100MG) TABLET Morphine Sulfate 30 Mg Tablet.er, 30 MG PO BID, (Reported) LAST FILLED #56 01-09-19 Morphine Sulfate 15 Mg Tablet, 15 MG PO TID PRN for PAIN-SEVERE (8-10), (Reported) LAST FILLED #28 11-15-18 Naloxegol Oxalate 25 Mg Tablet, 25 MG PO , (Reported) DOES NOT TAKE ON TUESDAYS FOR CHEMO Ondansetron 8 Mg Tab.rapdis, 8 MG PO TID PRN for NAUSEA/VOMITING-1ST LINE, (Reported) Pantoprazole Sodium 40 Mg Tablet.dr, 40 MG PO DAILY, (Reported) Phenazopyridine HCl 97.5 Mg Tablet, 97.5 MG PO DAILY PRN for URINARY PAIN, (Reported) Polyethylene Glycol 3350 17 Gm Powd.pack, 17 GM PO Q2H PRN for CONSTIPATION-2ND LINE, (Reported) Potassium Chloride 10 Meq Tab.er.prt, 10 MEQ PO BID, (Reported) LAST FILLED #180 10-19-18 Potassium Phosphate,Monobasic 500 Mg Tablet.alba, 1,000 MG PO BID, (Reported) Rosuvastatin Calcium 10 Mg Tablet, 10 MG PO DAILY, (Reported) Sennosides 8.6 Mg Tablet, 8.6 MG PO DAILY PRN for CONSTIPATION-5TH LINE, (Reported) Temazepam 15 Mg Capsule, 15 MG PO HS PRN for SLEEP, (Reported) LAST FILLED #28 11-16-18 Thyroid,Pork 30 Mg Tablet, 30 MG PO DAILY, (Reported) Tramadol HCl 50 Mg Tablet, 50 MG PO TID PRN for PAIN-MODERATE (5-7), (Reported) LAST FILLED #90 4-24-19 [Valcade] , INJ WEDNESDAY, (Reported) Patient Home Medication List Home Medication List Reviewed: Yes Review of Systems Review of Systems Constitutional: No chills, No diaphoresis EENTM: No Blurred Vision, No Double Vision Respiratory: Denies Cough, Denies Shortness of Air Cardiovascular: Denies Chest Pain, Denies Lightheadedness Gastrointestinal: Denies Abdomen Distended, Denies Abdominal Pain, Denies Constipated, Denies Diarrhea; Nausea, Poor Fluid Intake Genitourinary: Denies Burning, Denies Discharge Musculoskeletal: No back pain, No joint pain All Other Systems Reviewed Negative Unless Noted: Yes Past Gryhbfd-Lmsvez-Xmmhhu Hx Patient Social History Alcohol Use: Denies Use Smoking Status: Never a Smoker 2nd Hand Smoke Exposure: No Recent Hopitalizations: No Immunizations Up To Date Date of Pneumonia Vaccine: Sep 29, 2017 Date of Influenza Vaccine: Nov 29, 2018 Seasonal Allergies Seasonal Allergies: No Past Medical History Surgeries: Yes (colon resection; stem cell transplant) Appendectomy, Bowel Surgery, Gallbladder, Hysterectomy Respiratory: No Cardiac: Yes Hypertension Neurological: No Genitourinary: Yes Bladder Infection Gastrointestinal: No Musculoskeletal: No Endocrine: No HEENT: No Cancer: Yes (blood cancer; light chain proteins) Psychosocial: No Integumentary: No Blood Disorders: Yes Family Medical History Cancer, Stroke Physical Exam Vital Signs Vital Signs - First Documented 04/05/20 15:45 Temp 37.4 Pulse 71 Resp 16 B/P (MAP) 160/112 (128) Pulse Ox 99 O2 Delivery Room Air Capillary Refill : Height/Weight/BMI Height: 5'1.00" Weight: 127lbs. oz. 57.744320ii; 24.00 BMI Method:Stated General Appearance: WD/WN, no apparent distress HEENT: PERRL/EOMI; No pharynx normal (Oropharynx is moderately dry.) Respiratory: no respiratory distress, no accessory muscle use Cardiovascular: normal peripheral pulses, regular rate, rhythm Gastrointestinal: normal bowel sounds, non tender, soft Neurologic/Psychiatric: alert, normal mood/affect, oriented x 3 Skin: normal color, warm/dry Progress/Results/Core Measures Results/Orders Lab Results Laboratory Tests Test 04/05/20 16:39 Range/Units White Blood Count 5.8 4.3-11.0 10^3/uL Red Blood Count 3.54 L 4.35-5.85 10^6/uL Hemoglobin 11.9 11.5-16.0 G/DL Hematocrit 36 35-52 % Mean Corpuscular Volume 101 H 80-99 FL Mean Corpuscular Hemoglobin 34 25-34 PG Mean Corpuscular Hemoglobin Concent 33 32-36 G/DL Red Cell Distribution Width 12.6 10.0-14.5 % Platelet Count 119 L 130-400 10^3/uL Mean Platelet Volume 10.6 H 7.4-10.4 FL Neutrophils (%) (Auto) 77 H 42-75 % Lymphocytes (%) (Auto) 13 12-44 % Monocytes (%) (Auto) 10 0-12 % Eosinophils (%) (Auto) 0 0-10 % Basophils (%) (Auto) 0 0-10 % Neutrophils # (Auto) 4.4 1.8-7.8 X 10^3 Lymphocytes # (Auto) 0.8 L 1.0-4.0 X 10^3 Monocytes # (Auto) 0.6 0.0-1.0 X 10^3 Eosinophils # (Auto) 0.0 0.0-0.3 10^3/uL Basophils # (Auto) 0.0 0.0-0.1 10^3/uL Sodium Level 139 135-145 MMOL/L Potassium Level 3.4 L 3.6-5.0 MMOL/L Chloride Level 107 98-107 MMOL/L Carbon Dioxide Level 21 21-32 MMOL/L Anion Gap 11 5-14 MMOL/L Blood Urea Nitrogen 17 7-18 MG/DL Creatinine 1.59 H 0.60-1.30 MG/DL Estimat Glomerular Filtration Rate 32 BUN/Creatinine Ratio 11 Glucose Level 85 70-105 MG/DL Calcium Level 9.4 8.5-10.1 MG/DL Corrected Calcium 9.4 8.5-10.1 MG/DL Magnesium Level 1.9 1.6-2.4 MG/DL Total Bilirubin 0.5 0.1-1.0 MG/DL Aspartate Amino Transf (AST/SGOT) 14 5-34 U/L Alanine Aminotransferase (ALT/SGPT) 7 0-55 U/L Alkaline Phosphatase 78 40-136 U/L Total Protein 6.2 L 6.4-8.2 GM/DL Albumin 4.0 3.2-4.5 GM/DL My Orders Orders - ELLY,ERIKA J Lactated Ringers (Lr 1000 Ml Iv Solution (04/05/20 16:00) Morphine Injection (Morphine Injection (04/05/20 15:58) Promethazine Injection (Phenergan Injec (04/05/20 16:00) Cbc With Automated Diff (04/05/20 15:58) Comprehensive Metabolic Panel (04/05/20 15:58) Magnesium (04/05/20 16:07) Medications Given in ED Current Medications Medications Dose Ordered Sig/Eligio Route Start Time Stop Time Status Last Admin Dose Admin Lactated Ringer's 1,000 ml @ 0 mls/hr Q0M ONCE IV 04/05/20 16:00 04/05/20 16:01 DC 04/05/20 16:09 1,000 MLS/HR Promethazine HCl 25 mg ONCE ONCE IVP 04/05/20 16:00 04/05/20 16:01 DC 04/05/20 16:09 25 MG Vital Signs/I&O 04/05/20 15:45 Temp 37.4 Pulse 71 Resp 16 B/P (MAP) 160/112 (128) Pulse Ox 99 O2 Delivery Room Air Progress Progress Note #1: Time: 16:10 Progress Note Bilateral nontraumatic leg cramping could be related to electrolyte disorder. Plan to check some labs give her a liter of lactated Ringer's, 25 mg of Phenergan and 4 mg of morphine for pain. She takes 30 mg of morphine twice daily already because she has bone lesions in her back. Could be pathologic. Her blood pressure is mildly up but she has not been able to take her medicines secondary to nausea. If we can improve her symptoms and she can go home then she can take her medicines. Progress Note #2: Time: 17:34 Progress Note Per the patient's request we are putting the fluids and over 2 hours. She says her doctor has instructed her to get her IV fluids 500 cc/h because of previous kidney issues. She has been up and able to walk to the bathroom. She says her leg pain is significantly improved but still there. Her electrolytes show a mild low potassium and she says she does take potassium supplements. There is a little bit of potassium in the lactated Ringer's. She says her nausea is now gone and would agree to some Phenergan for home. Departure Impression Primary Impression: Nausea and vomiting Qualified Codes: R11.2 - Nausea with vomiting, unspecified Additional Impressions: Multiple myeloma Qualified Codes: C90.00 - Multiple myeloma not having achieved remission Mild dehydration Bilateral leg cramps Disposition: HOME, SELF-CARE Condition: Improved Departure-Patient Inst. Decision time for Depature: 18:00 Referrals: [facility] (PCP) Primary Care Physician ANA LUISA BARRAGAN APRN (Family) Primary Care Physician Patient Instructions: Nausea and Vomiting, Adult (DC), Dehydration, Adult ED Add. Discharge Instructions: Drink plenty of fluids. Sports drinks are encouraged. Continue to take your Zofran as prescribed. If you take the Zofran and nausea comes back before its time for another dose you may take 1 suppository of Phenergan every 6 hours as necessary. Phenergan can cause drowsiness. Follow-up with your primary care provider or oncologist as necessary. Return to the ER if you are having further, worsening symptoms. Scripts Promethazine HCl (Promethazine Suppository) 25 Mg Supp.rect 25 MG RC Q6H PRN for NAUSEA/VOMITING-2ND LINE, #14 SUPP.RECT 0 Refills Prov: REIKA SANABRIA 04/05/20 ERIKA SANABRIA Apr 05, 2020 16:13
[2020-04-05 16:41] LABS: BASOPHILS % (AUTO) 0 % (0-10); EOSINOPHILS % (AUTO) 0 % (0-10); HEMATOCRIT 36 % (35-52); HEMOGLOBIN 11.9 G/DL (11.5-16.0); LYMPHOCYTES % (AUTO) 13 % (12-44); MEAN CORPUSCULAR HEMOGLOBIN 34 PG (25-34); MEAN CORPUSCULAR HGB CONC 33 G/DL (32-36); MEAN CORPUSCULAR VOLUME 101 FL (80-99); MEAN PLATELET VOLUME 10.6 FL (7.4-10.4); MONOCYTES % (AUTO) 10 % (0-12); NEUTROPHILS % (AUTO) 77 % (42-75); PLATELET COUNT 119 10^3/uL (130-400); WHITE BLOOD COUNT 5.8 10^3/uL (4.3-11.0)
[2020-04-05 16:42] LABS: LYMPHOCYTES # (AUTO) 0.8 X 10^3 (1.0-4.0); MONOCYTES # (AUTO) 0.6 X 10^3 (0.0-1.0); NEUTROPHILS # (AUTO) 4.4 X 10^3 (1.8-7.8)
[2020-04-05 17:00] LABS: CALCIUM 9.4 MG/DL (8.5-10.1); CREATININE SERUM 1.59 MG/DL (0.60-1.30); POTASSIUM 3.4 MMOL/L (3.6-5.0)
[2020-04-05 17:01] LABS: BILIRUBIN,TOTAL 0.5 MG/DL (0.1-1.0); MAGNESIUM 1.9 MG/DL (1.6-2.4); TOTAL PROTEIN 6.2 GM/DL (6.4-8.2)
[2020-04-05] MEDS ORDERED: PROM25SU44 RC (18:11)
[2020-04-05 18:14] VITALS: BP 164/93
== END 2020-04-05 18:14 | disposition home or self-care (01) ==
LOC: EDUNIT# 15:43 → ER FS 15:44
DX: C90.00 Multiple myeloma not having achieved remission (principal); R11.10 Vomiting, unspecified; E86.0 Dehydration; R25.2 Cramp and spasm; I10 Essential (primary) hypertension; Z85.6 Personal history of leukemia; Z88.2 Allergy status to sulfonamides; Z91.040 Latex allergy status; Z88.1 Allergy status to other antibiotic agents; Z79.01 Long term (current) use of anticoagulants
CPT/HCPCS: 36415; 80053; 83735; 85025

== ENCOUNTER 2020-05-09 10:57 | Emergency (ER) | payer MEDICARE, OTHER ==
[~2020-05-09] VITALS: Ht 157 cm; Wt 63.0 kg
[~2020-05-09 10:57] MED LIST changes: +PROM25SU44 RC
[2020-05-09] MEDS ORDERED: PROMETHAZINE INJ 25 MG/ML (PHENERGAN) AMP IVP STA ×2 (11:16→12:32)
[2020-05-09] MEDS ORDERED: diphenhydrAMINE 50 MG/ML INJ (BENADRYL) IVP STA (11:16)
--- NOTE | 2020-05-09 11:25 | ED General ---
General Chief Complaint: General Problems/Pain Stated Complaint: VOMITING; HEADACHE Nursing Triage Note: PT HAS A HX OF HEADACHES WITH N/V FREQUENTLY. SHE REPORTS THIS EPISODE STARTED WEDNESDAY AND SHE IS DRY HEAVING. Nursing Sepsis Screen: No Definite Risk Source of Information: Patient, Old Records History of Present Illness Date Seen by Provider: May 09, 2020 Time Seen by Provider: 10:58 Initial Comments 69 yo female presenting with complaint of headache, n/v since Wednesday. She has had multiple previous visits to the ED for similar complaints. Usually she impro ves with IVF and Phenergan through her port. She is getting weekly injections with IVF at [facility] for her Multiple Myeloma. She has been using ODT Zofran at home but it has not helped with her n/v or headache and she has reports not being able to keep down any medicine since Wednesday. She states she did not try to contact local provider or cancer doctor because "they always just tell me to go to the ER, so that is what I did". She has not tried any other nausea medicine at home besides the ODT Zofran. she denies fever, diarrhea, cough, short of breath, burning urination, ill contacts. She has had chills and states she gets a runny nose when she has dry heaves and vomiting. Timing/Duration: 1-2 Days, Constant Severity: Severe Modifying Factors: worse with Other (light and opening her eyes makes it worse) Associated Systoms: No Chest Pain, No Cough, No Diaphoresis; Headaches, Malaise, Nausea/Vomiting; No Rash, No Seizure, No Shortness of Air, No Syncope; Weakness (general) Allergies and Home Medications Allergies Coded Allergies: Sulfa (Sulfonamide Antibiotics) (Verified Allergy, Unknown, hives, 05/24/18) latex (Verified Allergy, Unknown, anaphylaxis, 05/24/18) vancomycin (Verified Allergy, Unknown, hives, 05/24/18) Home Medications ALPRAZolam 0.25 Mg Tablet, 0.25 MG PO TID PRN for ANXIETY, (Reported) LAST FILLED #84 09-30-18 Acyclovir 400 Mg Tablet, 400 MG PO BID, (Reported) LAST FILLED #180 07-10-18 Amlodipine Besylate 5 Mg Tablet, 5 MG PO DAILY, (Reported) Apixaban 5 Mg Tablet, 5 MG PO BID, (Reported) Calcium Carbonate/Vitamin D3 1 Each Tablet, 1 TAB PO BID, (Reported) Cholecalciferol (Vitamin D3) 2,000 Unit Tablet, 2,000 UNIT PO BID, (Reported) Cyanocobalamin 1,000 Mcg/Ml Inj, 1,000 MCG IM UD, (Reported) TAKES WEEKLY X 4 WEEKS THEN ONCE MONTHLY - FIRST DOSE 02-27-19 Diphenhydramine HCl 25 Mg Capsule, 100 MG PO HS PRN for ITCHING, (Reported) Docusate Sodium 100 Mg Capsule, 200 MG PO HS PRN for CONSTIPATION-1ST LINE, (Reported) Fexofenadine HCl 60 Mg Tablet, 60 MG PO BID PRN for ALLERGIES, (Reported) Gabapentin 600 Mg Tablet, 600 MG PO HS, (Reported) LAST FILLED #90 09-20-18 Granisetron 1 Each Patch.tdwk, 1 PATCH TD Romero, (Reported) Loperamide HCl 2 Mg Tablet, PO UD PRN for DIARRHEA, (Reported) Losartan Potassium 100 Mg Tablet, 50 MG PO DAILY, (Reported) TAKES 1/2 (100MG) TABLET Morphine Sulfate 30 Mg Tablet.er, 30 MG PO BID, (Reported) LAST FILLED #56 01-09-19 Morphine Sulfate 15 Mg Tablet, 15 MG PO TID PRN for PAIN-SEVERE (8-10), (Reported) LAST FILLED #28 11-15-18 Naloxegol Oxalate 25 Mg Tablet, 25 MG PO We, (Reported) DOES NOT TAKE ON TUESDAYS FOR CHEMO Ondansetron 8 Mg Tab.rapdis, 8 MG PO TID PRN for NAUSEA/VOMITING-1ST LINE, (Reported) Pantoprazole Sodium 40 Mg Tablet.dr, 40 MG PO DAILY, (Reported) Phenazopyridine HCl 97.5 Mg Tablet, 97.5 MG PO DAILY PRN for URINARY PAIN, (Reported) Polyethylene Glycol 3350 17 Gm Powd.pack, 17 GM PO Q2H PRN for CONSTIPATION-2ND LINE, (Reported) Potassium Chloride 10 Meq Tab.er.prt, 10 MEQ PO BID, (Reported) LAST FILLED #180 10-19-18 Potassium Phosphate,Monobasic 500 Mg Tablet.alba, 1,000 MG PO BID, (Reported) Promethazine HCl 25 Mg Supp.rect, 25 MG RC Q6H PRN for NAUSEA/VOMITING-2ND LINE Prescribed by: NGOC CASTRO on 05/09/20 1243 Rosuvastatin Calcium 10 Mg Tablet, 10 MG PO DAILY, (Reported) Sennosides 8.6 Mg Tablet, 8.6 MG PO DAILY PRN for CONSTIPATION-5TH LINE, (Reported) Temazepam 15 Mg Capsule, 15 MG PO HS PRN for SLEEP, (Reported) LAST FILLED #28 11-16-18 Thyroid,Pork 30 Mg Tablet, 30 MG PO DAILY, (Reported) Tramadol HCl 50 Mg Tablet, 50 MG PO TID PRN for PAIN-MODERATE (5-7), (Reported) LAST FILLED #90 06-01-18 [Valcade] , INJ WEDNESDAY, (Reported) Patient Home Medication List Home Medication List Reviewed: Yes Review of Systems Review of Systems Constitutional: see HPI, chills; No diaphoresis, No fever; malaise EENTM: no symptoms reported Respiratory: no symptoms reported Cardiovascular: no symptoms reported Gastrointestinal: see HPI Genitourinary: see HPI Musculoskeletal: no symptoms reported Skin: No rash Psychiatric/Neurological: Headache ("feels like top of head is going to pop off") Hematologic/Lymphatic: Blood Clots (hx of blood clots so takes Eliquis), Easy Bleeding (takes eliquis), Easy Bruising (takes eliquis) Immunological/Allergic: see HPI (valcade chemotherapy weekly injections for Multiple Myeloma) Past Wovmdxq-Llexik-Rpaqlv Hx Past Med/Social Hx: Reviewed Nursing Past Med/Soc Hx Patient Social History Alcohol Use: Denies Use Smoking Status: Never a Smoker 2nd Hand Smoke Exposure: No Recent Infectious Disease Expo: No Recent Hopitalizations: No Immunizations Up To Date Date of Pneumonia Vaccine: Sep 29, 2017 Date of Influenza Vaccine: Nov 29, 2018 Seasonal Allergies Seasonal Allergies: No Past Medical History Surgeries: Yes (colon resection; stem cell transplant) Appendectomy, Bowel Surgery, Gallbladder, Hysterectomy Respiratory: No Cardiac: Yes Hypertension Neurological: No Genitourinary: Yes Bladder Infection Gastrointestinal: No Musculoskeletal: No Endocrine: No HEENT: No Cancer: Yes (blood cancer; light chain proteins, MULTIPLE MYELOMA) Psychosocial: No Integumentary: No Blood Disorders: Yes Family Medical History Cancer, Stroke Physical Exam Vital Signs Vital Signs - First Documented 05/09/20 11:00 Temp 36.8 Pulse 79 Resp 18 B/P (MAP) 167/104 (125) Pulse Ox 99 O2 Delivery Room Air Capillary Refill : Less Than 3 Seconds Height, Weight, BMI Height: 5'1.00" Weight: 127lbs. oz. 57.324129li; 25.00 BMI Method:Stated General Appearance: Mild Distress (keeping eyes closed) HEENT: PERRL/EOMI; No Moist Mucous Membranes (slightly dry mucous membranes) Neck: Full Range of Motion, Normal Inspection, Non Tender, Supple Respiratory: Chest Non Tender, Lungs Clear, Normal Breath Sounds Cardiovascular: Regular Rate, Rhythm, Normal Peripheral Pulses Gastrointestinal: Normal Bowel Sounds, No Pulsatile Mass, Non Tender, Soft Rectal: Deferred Extremity: Normal Capillary Refill, No Pedal Edema Neurologic/Psychiatric: Alert, Oriented x3, No Motor/Sensory Deficits, charge authorizer II- XII Norm as Tested Skin: Normal Color, Warm/Dry Progress/Results/Core Measures Suspected Sepsis Recent Fever Within 48 Hours: No Infection Criteria Present: None New/Unexplained Altered Menta: No Sepsis Screen: No Definite Risk SIRS Temperature: Pulse: 79 Respiratory Rate: 18 Laboratory Tests 05/09/20 11:35: White Blood Count 6.6 Blood Pressure 167 /104 Mean: 125 Laboratory Tests 05/09/20 11:35: Creatinine 1.37H, Platelet Count 131, Total Bilirubin 0.7 Results/Orders Lab Results Laboratory Tests Test 05/09/20 11:35 Range/Units White Blood Count 6.6 4.3-11.0 10^3/uL Red Blood Count 3.99 L 4.35-5.85 10^6/uL Hemoglobin 12.7 11.5-16.0 G/DL Hematocrit 38 35-52 % Mean Corpuscular Volume 95 80-99 FL Mean Corpuscular Hemoglobin 32 25-34 PG Mean Corpuscular Hemoglobin Concent 34 32-36 G/DL Red Cell Distribution Width 12.2 10.0-14.5 % Platelet Count 131 130-400 10^3/uL Mean Platelet Volume 10.9 H 7.4-10.4 FL Immature Granulocyte % (Auto) 0 % Neutrophils (%) (Auto) 84 H 42-75 % Lymphocytes (%) (Auto) 10 L 12-44 % Monocytes (%) (Auto) 5 0-12 % Eosinophils (%) (Auto) 0 0-10 % Basophils (%) (Auto) 0 0-10 % Neutrophils # (Auto) 5.5 1.8-7.8 X 10^3 Lymphocytes # (Auto) 0.7 L 1.0-4.0 X 10^3 Monocytes # (Auto) 0.4 0.0-1.0 X 10^3 Eosinophils # (Auto) 0.0 0.0-0.3 10^3/uL Basophils # (Auto) 0.0 0.0-0.1 10^3/uL Immature Granulocyte # (Auto) 0.0 0.0-0.1 10^3/uL Sodium Level 138 135-145 MMOL/L Potassium Level 3.5 L 3.6-5.0 MMOL/L Chloride Level 103 98-107 MMOL/L Carbon Dioxide Level 21 21-32 MMOL/L Anion Gap 14 5-14 MMOL/L Blood Urea Nitrogen 13 7-18 MG/DL Creatinine 1.37 H 0.60-1.30 MG/DL Estimat Glomerular Filtration Rate 38 BUN/Creatinine Ratio 9 Glucose Level 118 H 70-105 MG/DL Calcium Level 10.1 8.5-10.1 MG/DL Corrected Calcium 9.9 8.5-10.1 MG/DL Total Bilirubin 0.7 0.1-1.0 MG/DL Aspartate Amino Transf (AST/SGOT) 17 5-34 U/L Alanine Aminotransferase (ALT/SGPT) 9 0-55 U/L Alkaline Phosphatase 93 40-136 U/L Total Protein 6.6 6.4-8.2 GM/DL Albumin 4.3 3.2-4.5 GM/DL My Orders Orders - NGOC CASTRO MD Ed Iv/Invasive Line Start (05/09/20 11:16) Cbc With Automated Diff (05/09/20 11:16) Comprehensive Metabolic Panel (05/09/20 11:16) Ns Iv 1000 Ml (Sodium Chloride 0.9%) (05/09/20 11:30) Promethazine Injection (Phenergan Injec (05/09/20 11:16) Diphenhydramine Injection (Benadryl Inje (05/09/20 11:16) Dexamethasone Injection (Decadron Inje (05/09/20 11:16) Ct Head Wo (05/09/20 11:16) Morphine Injection (Morphine Injection (05/09/20 11:38) Promethazine Injection (Phenergan Injec (05/09/20 12:32) Morphine Injection (Morphine Injection (05/09/20 12:32) Ns Iv 500 Ml (Sodium Chloride 0.9%) (05/09/20 12:32) Heparin (Central Iv Flush) (Heparin (Yamil (05/09/20 13:09) Vital Signs/I&O 05/09/20 05/09/20 11:00 13:23 Temp 36.8 37.2 Pulse 79 74 Resp 18 18 B/P (MAP) 167/104 (125) 114/76 Pulse Ox 99 99 O2 Delivery Room Air Capillary Refill : Less Than 3 Seconds Blood Pressure Mean: 125 Progress Note #1: Progress Note With recurrent headache and elevated blood pressure will check CT head and basic labs. Since she has responded to IVF and IV Phenergan will try that along with a dose of Benadryl and Dexamethasone for headache/migraine cocktail. Differential diagnosis includes migraine headache, intracranial hemorrhage, n/v due to chemotherapy, hypertension, Progress Note #2: Time: 11:59 Progress Note No acute changes on CT head compared to July 2019. This helps rule out mass lesion, stroke, large intracranial hemorrhage. After the initial orders were placed and while pt was getting meds for headache and nausea she requested medicine for narcotic pain control since she has not kept her chronic narcotics down since Wednesday. I added a 10 mg IV dose of Morphine for her pain. Progress Note #3: Time: 12:28 Progress Note Reviewed with pt that her CT and labs are stable and Cr looks a little better today at 1.37 compared to usual 1.5 or better. She has K+ of 3.5. She states nausea improved but has headache still at 7 or 8 out of 10. She appears more comfortable and is able to have her eyes open the entire time she is talking to me, compared to tightly closing her eyes on arrival. Advised will repeat pain medicine Morphine 10 mg IV and Phenergan 25 mg but that I will not likely be able to get her headache to completely go away. will try discharge to home to have her take her home meds as part of her pain and n/v is likely due to narcotic withdrawal as well since she has missed at least 4 doses of her Morphine. Progress Note #4: Time: 12:54 Progress Note patient reports improvement in symptoms and tolerating po in ED. Will discharge to home to get her back on her regular meds and check with clinic and regular providers for continued concerns Diagnostic Imaging Diagonstic Imaging: CT Plain Films/CT/US/NM/MRI: head Comments NAME: RHIANNON MORSE [facility] REC#: [id number] PT STATUS: REG ER : 1950 PHYSICIAN: NGOC CASTRO MD ADMIT DATE: 05/09/20/ER FS Draft Date of Exam:05/09/20 CT HEAD WO PROCEDURE: CT head without contrast. TECHNIQUE: Multiple contiguous axial images were obtained through the brain without the use of intravenous contrast. Auto Exposure Controls were utilized during the CT exam to meet ALARA standards for radiation dose reduction. INDICATION: Head pain, nausea, vomiting, photophobia. Compared with study 07/31/2019 FINDINGS: There is no hemorrhage, hydrocephalus, edema, mass, mass effect nor evidence for an elevation of the intracranial pressures. The basilar cisterns are patent. There is no sulcal effacement. The orbits, sinuses and calvarium within normal limits. No acute finding. No interval change. IMPRESSION: Stable negative CT head. Dictated on workstation # [id number] Dict: 05/09/20 1153 Trans: 05/09/20 1156 [id number] Interpreted by: LISA VILLARREAL Electronically signed by: Departure Impression Primary Impression: Nausea and vomiting in adult Additional Impressions: Headache on top of head Photophobia Opiate withdrawal Disposition: HOME, SELF-CARE Condition: Improved Departure-Patient Inst. Decision time for Depature: 12:54 Referrals: [facility]/ (PCP) Primary Care Physician ANA LUISA BARRAGAN APRN (Family) Primary Care Physician Patient Instructions: Nausea and Vomiting, Adult ED, Headache, Adult ED, Home Treatments for Nausea and Vomiting When You Have Cancer, Home Headache Remedies Add. Discharge Instructions: Take your regular medicines and get back on schedule with your chronic medication doses. Follow up with your Oncology and Primary care about other possible nausea medicines for home since the Zofran dissolving tablets were not controlling your symptoms. That way you could have a back up medicine to try and hopefully prevent missing your scheduled medications if this recurs. All discharge instructions reviewed with patient and/or family. Voiced understanding. Scripts Promethazine HCl (Promethazine Suppository) 25 Mg Supp.rect 25 MG RC Q6H PRN for NAUSEA/VOMITING-2ND LINE, #14 SUPP.RECT 0 Refills Prov: NGOC CASTRO MD 05/09/20 NGOC CASTRO MD May 09, 2020 11:25
[2020-05-09] MEDS ORDERED: NS IV 1000 ML 1,000 ML IV SCH (11:30)
[2020-05-09] MEDS ORDERED: morphine INJ 10 MG/ML 1ML (SYR OR VIAL) IVP STA ×2 (11:38→12:32)
[2020-05-09 11:45] LABS: HEMATOCRIT 38 % (35-52); HEMOGLOBIN 12.7 G/DL (11.5-16.0); MEAN CORPUSCULAR HEMOGLOBIN 32 PG (25-34); MEAN CORPUSCULAR VOLUME 95 FL (80-99); WHITE BLOOD COUNT 6.6 10^3/uL (4.3-11.0)
[2020-05-09 11:46] LABS: BASOPHILS % (AUTO) 0 % (0-10); EOSINOPHILS % (AUTO) 0 % (0-10); LYMPHOCYTES % (AUTO) 10 % (12-44); MEAN CORPUSCULAR HGB CONC 34 G/DL (32-36); MEAN PLATELET VOLUME 10.9 FL (7.4-10.4); MONOCYTES % (AUTO) 5 % (0-12); NEUTROPHILS % (AUTO) 84 % (42-75); PLATELET COUNT 131 10^3/uL (130-400)
[2020-05-09 11:47] LABS: LYMPHOCYTES # (AUTO) 0.7 X 10^3 (1.0-4.0); MONOCYTES # (AUTO) 0.4 X 10^3 (0.0-1.0); NEUTROPHILS # (AUTO) 5.5 X 10^3 (1.8-7.8)
--- NOTE | 2020-05-09 11:56 | Diagnostic Imaging Report ---
PROCEDURE: CT head without contrast. TECHNIQUE: Multiple contiguous axial images were obtained through the brain without the use of intravenous contrast. Auto Exposure Controls were utilized during the CT exam to meet ALARA standards for radiation dose reduction. INDICATION: Head pain, nausea, vomiting, photophobia. Compared with study 07/31/2019 FINDINGS: There is no hemorrhage, hydrocephalus, edema, mass, mass effect nor evidence for an elevation of the intracranial pressures. The basilar cisterns are patent. There is no sulcal effacement. The orbits, sinuses and calvarium within normal limits. No acute finding. No interval change. IMPRESSION: Stable negative CT head. Dictated by: Dictated on workstation # [id number]
[2020-05-09 12:15] LABS: POTASSIUM 3.5 MMOL/L (3.6-5.0)
[2020-05-09 12:16] LABS: BILIRUBIN,TOTAL 0.7 MG/DL (0.1-1.0); CALCIUM 10.1 MG/DL (8.5-10.1); CREATININE SERUM 1.37 MG/DL (0.60-1.30); TOTAL PROTEIN 6.6 GM/DL (6.4-8.2)
[2020-05-09 12:17] LABS: ALBUMIN 4.3 GM/DL (3.2-4.5)
[2020-05-09] MEDS ORDERED: NS IV 500 ML 500 ML IV STA (12:32)
[2020-05-09] MEDS ORDERED: PROM25SU44 RC (12:43)
[2020-05-09] MEDS ORDERED: HEParin (CENTRAL IV FLUSH) 500 UNIT/5 ML SYR IV STA (13:09)
[2020-05-09 13:23] VITALS: BP 114/76
== END 2020-05-09 13:17 | disposition home or self-care (01) ==
LOC: EDUNIT# 10:57 → ER FS 10:58
DX: R11.2 Nausea with vomiting, unspecified (principal); T45.1X5A Adverse effect of antineoplastic and immunosuppressive drugs, initial encounter; H53.149 Visual discomfort, unspecified; F11.13 Opioid abuse with withdrawal; R03.0 Elevated blood-pressure reading, without diagnosis of hypertension; C90.00 Multiple myeloma not having achieved remission; G43.909 Migraine, unspecified, not intractable, without status migrainosus; I10 Essential (primary) hypertension; Z85.6 Personal history of leukemia; Z86.718 Personal history of other venous thrombosis and embolism; Z79.02 Long term (current) use of antithrombotics/antiplatelets; Z79.01 Long term (current) use of anticoagulants; Z79.899 Other long term (current) drug therapy; Z88.1 Allergy status to other antibiotic agents; Z88.2 Allergy status to sulfonamides; Z91.040 Latex allergy status
CPT/HCPCS: 36415; 70450; 80053; 85025

== ENCOUNTER → 2020-06-06 | Outpatient (CLI) | payer MEDICARE, OTHER ==
[~2020-06-06] MED LIST changes: -ACYC400T PO; +ACYC400T21 PO
--- NOTE | 2020-06-06 10:49 | Diagnostic Imaging Report ---
INDICATION: Left shoulder pain. Time of exam 10:10 AM 2 views left shoulder were obtained. Acromioclavicular and glenohumeral alignment are normal. Acromial humeral space is normal. No fracture or dislocation is seen. IMPRESSION: No acute abnormalities detected. Dictated by: Dictated on workstation # [id number]
--- NOTE | 2020-06-06 10:50 | Diagnostic Imaging Report ---
Indication: Left shoulder pain. Time of exam 10:12 AM 2 views left clavicle were obtained. There is questionable minimal cephalad location of the distal clavicle in relation to the acromion which can be seen with acromioclavicular separation. No fractures are seen. Glenohumeral alignment is normal. IMPRESSION: Questionable very mild acromial clavicular separation. No acute bony abnormality is detected. Dictated by: Dictated on workstation # [id number]
== END ==
LOC: RAD FS 09:52
PROVIDERS: ATTEND Internal Medicine Hematology & Oncology
DX: C90.00 Multiple myeloma not having achieved remission (principal)
CPT/HCPCS: 73000; 73030

== ENCOUNTER 2020-06-14 09:39 | Emergency (ER) | payer MEDICARE, OTHER ==
[2020-06-14] MEDS ORDERED: NS IV 1000 ML 1,000 ML IV STA (10:00)
[2020-06-14] MEDS ORDERED: PROMETHAZINE INJ 25 MG/ML (PHENERGAN) AMP IVP STA ×2 (10:04→11:18)
[2020-06-14] MEDS ORDERED: morphine INJ 10 MG/ML 1ML (SYR OR VIAL) ONE (10:10)
[2020-06-14] MEDS ORDERED: morphine INJ 10 MG/ML 1ML (SYR OR VIAL) IVP STA (10:15)
--- NOTE | 2020-06-14 10:15 | ED GI ---
General Chief Complaint: Abdominal/GI Problems Stated Complaint: N/V Nursing Triage Note: Patient presents to the ED with c/o of nausea and vomiting. She states she had chemo last week and her nausea and vomiting started Wednesday morning. She was seen by her PCP Wednesday and was given IV fluids and nausea medication. She reports she called her PCP this morning and was told to come to the ED for further evaluation. Sepsis Screen: No Definite Risk Source of Information: Patient, Old Records History of Present Illness Date Seen by Provider: June 14, 2020 Time Seen by Provider: 09:41 Initial Comments 69-year-old female presenting with complaints of nausea, vomiting, mild headache. She denies any fever or chills. She had chemotherapy last week for her multiple myeloma. She has had nausea and vomiting this week. She was seen in the clinic and given IV fluids with Zofran but continues to have symptoms. She has not always been able to keep down her extended release morphine at home so she has some mild withdrawal symptoms as well. She denies any burning with urination. There is no diarrhea or change in her bowels. She denies any increased cough or shortness of breath. She has had recurrent symptoms like this in the past multiple times. Usually after getting IV fluids she improves. She states that in the past a doctor had told her she could only get 500 mL of fluid over an hour because of her kidney function. Allergies and Home Medications Allergies Coded Allergies: Sulfa (Sulfonamide Antibiotics) (Verified Allergy, Unknown, hives, 05/24/18) latex (Verified Allergy, Unknown, anaphylaxis, 05/24/18) vancomycin (Verified Allergy, Unknown, hives, 05/24/18) Home Medications ALPRAZolam 0.25 Mg Tablet, 0.25 MG PO TID PRN for ANXIETY, (Reported) LAST FILLED #84 09-30-18 Acyclovir 400 Mg Tablet, 400 MG PO BID, (Reported) LAST FILLED #180 07-10-18 Amlodipine Besylate 5 Mg Tablet, 5 MG PO DAILY, (Reported) Apixaban 5 Mg Tablet, 5 MG PO BID, (Reported) Calcium Carbonate/Vitamin D3 1 Each Tablet, 1 TAB PO BID, (Reported) Cholecalciferol (Vitamin D3) 2,000 Unit Tablet, 2,000 UNIT PO BID, (Reported) Cyanocobalamin 1,000 Mcg/Ml Inj, 1,000 MCG IM UD, (Reported) TAKES WEEKLY X 4 WEEKS THEN ONCE MONTHLY - FIRST DOSE 02-27-19 Diphenhydramine HCl 25 Mg Capsule, 100 MG PO HS PRN for ITCHING, (Reported) Docusate Sodium 100 Mg Capsule, 200 MG PO HS PRN for CONSTIPATION-1ST LINE, (Reported) Fexofenadine HCl 60 Mg Tablet, 60 MG PO BID PRN for ALLERGIES, (Reported) Gabapentin 600 Mg Tablet, 600 MG PO HS, (Reported) LAST FILLED #90 09-20-18 Granisetron 1 Each Patch.tdwk, 1 PATCH TD Romero, (Reported) Loperamide HCl 2 Mg Tablet, PO UD PRN for DIARRHEA, (Reported) Losartan Potassium 100 Mg Tablet, 50 MG PO DAILY, (Reported) TAKES 1/2 (100MG) TABLET Morphine Sulfate 30 Mg Tablet.er, 30 MG PO BID, (Reported) LAST FILLED #56 01-09-19 Morphine Sulfate 15 Mg Tablet, 15 MG PO TID PRN for PAIN-SEVERE (8-10), (Reported) LAST FILLED #28 11-15-18 Naloxegol Oxalate 25 Mg Tablet, 25 MG PO SuMoWeTh, (Reported) DOES NOT TAKE ON TUESDAYS FOR CHEMO Ondansetron 8 Mg Tab.rapdis, 8 MG PO TID PRN for NAUSEA/VOMITING-1ST LINE, (Reported) Pantoprazole Sodium 40 Mg Tablet.dr, 40 MG PO DAILY, (Reported) Phenazopyridine HCl 97.5 Mg Tablet, 97.5 MG PO DAILY PRN for URINARY PAIN, (R eported) Polyethylene Glycol 3350 17 Gm Powd.pack, 17 GM PO Q2H PRN for CONSTIPATION-2ND LINE, (Reported) Potassium Chloride 10 Meq Tab.er.prt, 10 MEQ PO BID, (Reported) LAST FILLED #180 10-19-18 Potassium Phosphate,Monobasic 500 Mg Tablet.alba, 1,000 MG PO BID, (Reported) Promethazine HCl 25 Mg Supp.rect, 25 MG RC Q6H PRN for NAUSEA/VOMITING-2ND LINE Prescribed by: NGOC CASTRO on 05/09/20 1243 Rosuvastatin Calcium 10 Mg Tablet, 10 MG PO DAILY, (Reported) Sennosides 8.6 Mg Tablet, 8.6 MG PO DAILY PRN for CONSTIPATION-5TH LINE, (Reported) Temazepam 15 Mg Capsule, 15 MG PO HS PRN for SLEEP, (Reported) LAST FILLED #28 11-16-18 Thyroid,Pork 30 Mg Tablet, 30 MG PO DAILY, (Reported) Tramadol HCl 50 Mg Tablet, 50 MG PO TID PRN for PAIN-MODERATE (5-7), (Reported) LAST FILLED #90 06-01-18 [Valcade] , INJ WEDNESDAY, (Reported) Patient Home Medication List Home Medication List Reviewed: Yes Review of Systems Review of Systems Constitutional: No chills, No dizziness, No fever EENTM: No Symptoms Reported Respiratory: No Symptoms Reported Cardiovascular: No Symptoms Reported Gastrointestinal: See HPI Genitourinary: No Symptoms Reported Musculoskeletal: no symptoms reported Skin: no symptoms reported Psychiatric/Neurological: See HPI, Headache (Mild generalized headache similar to what she gets when she cannot take her chronic pain medications) Past Xevxemo-Qisbpy-Sokiqp Hx Past Med/Social Hx: Reviewed Nursing Past Med/Soc Hx Patient Social History Alcohol Use: Denies Use 2nd Hand Smoke Exposure: No Recent Infectious Disease Expo: No Recent Hopitalizations: No Immunizations Up To Date Date of Pneumonia Vaccine: Sep 29, 2017 Date of Influenza Vaccine: Nov 29, 2018 Seasonal Allergies Seasonal Allergies: No Past Medical History Surgeries: Yes (colon resection; stem cell transplant) Appendectomy, Bowel Surgery, Gallbladder, Hysterectomy Respiratory: No Cardiac: Yes Hypertension Neurological: No Genitourinary: Yes Bladder Infection Gastrointestinal: No Musculoskeletal: No Endocrine: No HEENT: No Cancer: Yes (blood cancer; light chain proteins, MULTIPLE MYELOMA) Psychosocial: No Integumentary: No Blood Disorders: Yes Family Medical History Cancer, Stroke Physical Exam Vital Signs Vital Signs - First Documented 06/14/20 09:40 Temp 36.4 Pulse 86 Resp 16 B/P (MAP) 129/82 (98) Pulse Ox 98 O2 Delivery Room Air Capillary Refill : Less Than 3 Seconds Height/Weight/BMI Height: 5'1.00" Weight: 127lbs. oz. 57.416069dv; 25.00 BMI Method:Stated General Appearance: WD/WN, no apparent distress HEENT: PERRL/EOMI, pharynx normal Neck: non-tender, full range of motion, supple, normal inspection Respiratory: chest non-tender, lungs clear, normal breath sounds, no respiratory distress, no accessory muscle use Cardiovascular: normal peripheral pulses, regular rate, rhythm Gastrointestinal: normal bowel sounds, non tender, soft, no pulsatile mass Rectal: deferred Extremities: normal range of motion, normal capillary refill Neurologic/Psychiatric: alert, oriented x 3 Skin: normal color, warm/dry Progress/Results/Core Measures Results/Orders Lab Results Laboratory Tests Test 06/14/20 10:22 06/14/20 12:31 Range/Units White Blood Count 3.9 L 4.3-11.0 10^3/uL Red Blood Count 3.85 L 4.35-5.85 10^6/uL Hemoglobin 12.1 11.5-16.0 G/DL Hematocrit 37 35-52 % Mean Corpuscular Volume 97 80-99 FL Mean Corpuscular Hemoglobin 31 25-34 PG Mean Corpuscular Hemoglobin Concent 33 32-36 G/DL Red Cell Distribution Width 13.1 10.0-14.5 % Platelet Count 107 L 130-400 10^3/uL Mean Platelet Volume 10.5 H 7.4-10.4 FL Immature Granulocyte % (Auto) 0 % Neutrophils (%) (Auto) 76 H 42-75 % Lymphocytes (%) (Auto) 12 12-44 % Monocytes (%) (Auto) 11 0-12 % Eosinophils (%) (Auto) 1 0-10 % Basophils (%) (Auto) 1 0-10 % Neutrophils # (Auto) 2.9 1.8-7.8 X 10^3 Lymphocytes # (Auto) 0.5 L 1.0-4.0 X 10^3 Monocytes # (Auto) 0.4 0.0-1.0 X 10^3 Eosinophils # (Auto) 0.0 0.0-0.3 10^3/uL Basophils # (Auto) 0.0 0.0-0.1 10^3/uL Immature Granulocyte # (Auto) 0.0 0.0-0.1 10^3/uL Sodium Level 138 135-145 MMOL/L Potassium Level 2.8 L 3.6-5.0 MMOL/L Chloride Level 102 98-107 MMOL/L Carbon Dioxide Level 24 21-32 MMOL/L Anion Gap 12 5-14 MMOL/L Blood Urea Nitrogen 18 7-18 MG/DL Creatinine 1.61 H 0.60-1.30 MG/DL Estimat Glomerular Filtration Rate 32 BUN/Creatinine Ratio 11 Glucose Level 157 H 70-105 MG/DL Calcium Level 9.4 8.5-10.1 MG/DL Corrected Calcium 9.5 8.5-10.1 MG/DL Total Bilirubin 0.6 0.1-1.0 MG/DL Aspartate Amino Transf (AST/SGOT) 14 5-34 U/L Alanine Aminotransferase (ALT/SGPT) 7 0-55 U/L Alkaline Phosphatase 83 40-136 U/L Total Protein 5.9 L 6.4-8.2 GM/DL Albumin 3.9 3.2-4.5 GM/DL Lipase 19 8-78 U/L Urine Color YELLOW Urine Clarity CLEAR Urine pH 7.0 5-9 Urine Specific [place] 1.015 L 1.016-1.022 Urine Protein TRACE H NEGATIVE Urine Glucose (UA) NEGATIVE NEGATIVE Urine Ketones NEGATIVE NEGATIVE Urine Nitrite NEGATIVE NEGATIVE Urine Bilirubin NEGATIVE NEGATIVE Urine Urobilinogen 0.2 < = 1.0 MG/DL Urine Leukocyte Esterase 1+ H NEGATIVE Urine RBC (Auto) TRACE H NEGATIVE Urine RBC 2-5 H /HPF Urine WBC 2-5 /HPF Urine Squamous Epithelial Cells 0-2 /HPF Urine Crystals NONE /LPF Urine Bacteria NEGATIVE /HPF Urine Casts PRESENT /LPF Urine Hyaline Casts 0-2 H /LPF Urine Mucus NEGATIVE /LPF Urine Culture Indicated YES My Orders Orders - NGOC CASTRO MD Comprehensive Metabolic Panel (06/14/20 10:00) Lipase (06/14/20 10:00) Ua Culture If Indicated (06/14/20 10:00) Ed Iv/Invasive Line Start (06/14/20 10:00) Cbc With Automated Diff (06/14/20 10:00) Ns Iv 1000 Ml (Sodium Chloride 0.9%) (06/14/20 10:00) Promethazine Injection (Phenergan Injec (06/14/20 10:04) Morphine Injection (Morphine Injection (06/14/20 10:15) Morphine Injection (Morphine Injection (06/14/20 10:10) Potassium Cl 10meq/50ml Ivpb (Kcl 10 Meq (06/14/20 11:18) Promethazine Injection (Phenergan Injec (06/14/20 11:18) Heparin (Central Iv Flush) (Heparin (Yamil (06/14/20 12:32) Urine Culture (06/14/20 12:31) Vital Signs/I&O 06/14/20 06/14/20 09:40 12:45 Temp 36.4 36.4 Pulse 86 77 Resp 16 16 B/P (MAP) 129/82 (98) 125/76 (98) Pulse Ox 98 98 O2 Delivery Room Air Blood Pressure Mean: 98 Progress Progress Note #1: Progress Note With no acute significant change from her chronic recurrent complaints of nausea and vomiting with headache from missing doses of her morphine will access her port and give IV fluids for hydration, Phenergan for nausea vomiting, and morphine 4 mg IV x1 to help with her narcotic withdrawal from not being able to take the full dose of her chronic pain medication. Differential diagnosis includes opiate withdrawal, chemotherapy cause nausea vomiting, UTI, electrolyte imbalance, nausea vomiting Progress Note #2: Progress Note Labs appear stable for her with no acute significant abnormality other than hypokalemia. Her initial check of symptoms did not show significant improvement in her nausea with the first dose of medication. We will repeat the Phenergan and and then 10 mEq of IV potassium for her hypokalemia. Pt improved and able to provide urine specimen. Patient was tolerating oral intake here in the ED. Will discharge to home to continue her regular medications. Progress Note #3: Progress Note UA did show 1+ LE with casts and blood. no nitrites. Pt denied UTI symptoms so will hold off on antibiotic until culture results come back Departure Impression Primary Impression: Nausea and vomiting Qualified Codes: R11.2 - Nausea with vomiting, unspecified Additional Impression: Hypokalemia Disposition: 01 HOME, SELF-CARE Condition: Stable Departure-Patient Inst. Decision time for Depature: 12:31 Referrals: [facility] (PCP) Primary Care Physician ANA LUISA BARRAGAN APRN (Family) Primary Care Physician Patient Instructions: Nausea and Vomiting, Adult ED, Abdominal Pain, Adult ED, Hypokalemia (DC) Add. Discharge Instructions: Continue your medicines at home. Continue to sip on fluids and try to stay hydrated. Follow up with clinic for continued concerns All discharge instructions reviewed with patient and/or family. Voiced understanding. NGOC CASTRO MD June 14, 2020 10:15
[2020-06-14 11:03] LABS: POTASSIUM 2.8 MMOL/L (3.6-5.0)
[2020-06-14 11:04] LABS: ALBUMIN 3.9 GM/DL (3.2-4.5); BILIRUBIN,TOTAL 0.6 MG/DL (0.1-1.0); CALCIUM 9.4 MG/DL (8.5-10.1); CREATININE SERUM 1.61 MG/DL (0.60-1.30); TOTAL PROTEIN 5.9 GM/DL (6.4-8.2)
[2020-06-14 11:05] LABS: HEMATOCRIT 37 % (35-52); HEMOGLOBIN 12.1 G/DL (11.5-16.0); MEAN CORPUSCULAR HEMOGLOBIN 31 PG (25-34); MEAN CORPUSCULAR HGB CONC 33 G/DL (32-36); MEAN CORPUSCULAR VOLUME 97 FL (80-99); WHITE BLOOD COUNT 3.9 10^3/uL (4.3-11.0)
[2020-06-14 11:06] LABS: BASOPHILS % (AUTO) 1 % (0-10); EOSINOPHILS % (AUTO) 1 % (0-10); LYMPHOCYTES # (AUTO) 0.5 X 10^3 (1.0-4.0); LYMPHOCYTES % (AUTO) 12 % (12-44); MEAN PLATELET VOLUME 10.5 FL (7.4-10.4); MONOCYTES # (AUTO) 0.4 X 10^3 (0.0-1.0); MONOCYTES % (AUTO) 11 % (0-12); NEUTROPHILS # (AUTO) 2.9 X 10^3 (1.8-7.8); NEUTROPHILS % (AUTO) 76 % (42-75); PLATELET COUNT 107 10^3/uL (130-400)
[2020-06-14] MEDS ORDERED: POTASSIUM CL 10MEQ/50ML IVPB 50 ML IV STA (11:18)
[2020-06-14] MEDS ORDERED: HEParin (CENTRAL IV FLUSH) 500 UNIT/5 ML SYR IV STA (12:32)
[2020-06-14 12:45] VITALS: BP 125/76
[2020-06-14 12:45] LABS: BILIRUBIN,URINE NEGATIVE (NEGATIVE); CLARITY,URINE CLEAR; COLOR,URINE YELLOW; GLUCOSE, URINE (UA) NEGATIVE (NEGATIVE); KETONES,URINE NEGATIVE (NEGATIVE); NITRITE,URINE NEGATIVE (NEGATIVE); PROTEIN,URINE TRACE (NEGATIVE)
[2020-06-14 12:46] LABS: LEUKOCYTE ESTERASE ,URINE 1+ (NEGATIVE)
[2020-06-14 12:52] LABS: BACTERIA,URINE NEGATIVE /HPF; HYALINE CASTS, URINE 0-2 /LPF; SQUAMOUS EPITHELIAL CELL,UR 0-2 /HPF
== END 2020-06-14 12:45 | disposition home or self-care (01) ==
LOC: EDUNIT# 09:39 → ER FS 09:40
DX: R11.2 Nausea with vomiting, unspecified (principal); E87.6 Hypokalemia; I10 Essential (primary) hypertension; Z88.2 Allergy status to sulfonamides; Z88.8 Allergy status to other drugs, medicaments and biological substances; Z91.040 Latex allergy status; Z79.01 Long term (current) use of anticoagulants
CPT/HCPCS: 36415; 36556; 80053; 81000; 83690; 85025; 87077; 87088; 87186

== ENCOUNTER 2020-07-20 10:08 | Emergency (ER) | payer MEDICARE, OTHER ==
[2020-07-20] MEDS ORDERED: PROMETHAZINE INJ 25 MG/ML (PHENERGAN) AMP IVP STA ×2 (10:40→11:44)
[2020-07-20] MEDS ORDERED: morphine INJ 10 MG/ML 1ML (SYR OR VIAL) IVP STA ×2 (10:40→11:44)
[2020-07-20 10:45] LABS: CLARITY,URINE CLEAR; COLOR,URINE YELLOW; GLUCOSE, URINE (UA) TRACE (NEGATIVE); KETONES,URINE NEGATIVE (NEGATIVE); PH,URINE 6.5 (5-9); PROTEIN,URINE 2+ (NEGATIVE)
[2020-07-20] MEDS ORDERED: NS IV 1000 ML 1,000 ML IV SCH (10:45)
[2020-07-20 10:46] LABS: BACTERIA,URINE MODERATE /HPF; BILIRUBIN,URINE NEGATIVE (NEGATIVE); LEUKOCYTE ESTERASE ,URINE NEGATIVE (NEGATIVE); NITRITE,URINE NEGATIVE (NEGATIVE); RBC,URINE 0-2 /HPF
[2020-07-20 10:58] LABS: HEMATOCRIT 37 % (35-52); MEAN CORPUSCULAR HEMOGLOBIN 31 PG (25-34); MEAN CORPUSCULAR HGB CONC 32 G/DL (32-36); MEAN CORPUSCULAR VOLUME 96 FL (80-99); PLATELET COUNT 126 10^3/uL (130-400)
[2020-07-20 10:59] LABS: BASOPHILS % (AUTO) 0 % (0-10); EOSINOPHILS % (AUTO) 0 % (0-10); LYMPHOCYTES # (AUTO) 0.6 X 10^3 (1.0-4.0); LYMPHOCYTES % (AUTO) 10 % (12-44); MEAN PLATELET VOLUME 10.6 FL (7.4-10.4); MONOCYTES # (AUTO) 0.4 X 10^3 (0.0-1.0); MONOCYTES % (AUTO) 7 % (0-12); NEUTROPHILS % (AUTO) 83 % (42-75)
[2020-07-20 11:16] LABS: ALANINE AMINOTRANSFERASE < 5 U/L (0-55); ALBUMIN 4.1 GM/DL (3.2-4.5); ALKALINE PHOSPHATASE 84 U/L (40-136); BILIRUBIN,TOTAL 0.5 MG/DL (0.1-1.0); BUN/CREATININE RATIO 12; CALCIUM 9.4 MG/DL (8.5-10.1); CARBON DIOXIDE 23 MMOL/L (21-32); CHLORIDE 104 MMOL/L (98-107); CREATININE SERUM 1.47 MG/DL (0.60-1.30); GFR ESTIMATED 35; GLUCOSE 159 MG/DL (70-105); LIPASE 23 U/L (8-78); POTASSIUM 3.5 MMOL/L (3.6-5.0); SODIUM 138 MMOL/L (135-145); TOTAL PROTEIN 6.1 GM/DL (6.4-8.2)
--- NOTE | 2020-07-20 11:19 | ED General ---
General Chief Complaint: Abdominal/GI Problems Stated Complaint: NAUSEA | VOMITING Nursing Triage Note: Has been nauseous and vomiting x 3 days. Was seen in clinic yesterday and given fluids and zofran. Has been unable to keep down pills since . Is worried about having withdrawal symptoms from not getting her morphine tablets. Is still urinating normal. Has hx of multiple myeloma and states she cannot get fluids too fast or it will overwhelm her kidney. Nursing Sepsis Screen: No Definite Risk Source of Information: Patient, Old Records History of Present Illness Date Seen by Provider: Jul 20, 2020 Time Seen by Provider: 10:10 Initial Comments 69-year-old female presenting with 3 days of nausea vomiting. She was seen in the clinic yesterday and given IV fluids and Zofran. She states that she has been having difficulty keeping her medications down since . She was worried about developing opiate withdrawal as she takes chronic morphine tablets for chronic pain. She has multiple myeloma and has been told that she can only get IV fluids at 500 mils an hour. She denies pain or burning with urination but states it has been more dark today with her urine. She denies fever or chills. She has had no diarrhea. She denies headache or vision changes. Previously she has responded to getting IV morphine and Phenergan through her port to help control her symptoms. She last took a Phenergan suppository around 4 AM but it was not helping enough to control her symptoms so she came to the emergency department. Timing/Duration: 2-3 Days Severity: Moderate Associated Systoms: No Chest Pain, No Cough, No Diaphoresis, No Fever/Chills, No Headaches, No Loss of Appetite; Malaise, Nausea/Vomiting; No Rash, No Seizure, No Shortness of Air, No Syncope; Weakness Allergies and Home Medications Allergies Coded Allergies: Sulfa (Sulfonamide Antibiotics) (Verified Allergy, Unknown, hives, 05/24/18) latex (Verified Allergy, Unknown, anaphylaxis, 05/24/18) vancomycin (Verified Allergy, Unknown, hives, 05/24/18) Home Medications ALPRAZolam 0.25 Mg Tablet, 0.25 MG PO TID PRN for ANXIETY, (Reported) LAST FILLED #84 09-30-18 Acyclovir 400 Mg Tablet, 400 MG PO BID, (Reported) LAST FILLED #180 07-10-18 Amlodipine Besylate 5 Mg Tablet, 5 MG PO DAILY, (Reported) Apixaban 5 Mg Tablet, 5 MG PO BID, (Reported) Calcium Carbonate/Vitamin D3 1 Each Tablet, 1 TAB PO BID, (Reported) Cholecalciferol (Vitamin D3) 2,000 Unit Tablet, 2,000 UNIT PO BID, (Reported) Cyanocobalamin 1,000 Mcg/Ml Inj, 1,000 MCG IM UD, (Reported) TAKES WEEKLY X 4 WEEKS THEN ONCE MONTHLY - FIRST DOSE 02-27-19 Diphenhydramine HCl 25 Mg Capsule, 100 MG PO HS PRN for ITCHING, (Reported) Docusate Sodium 100 Mg Capsule, 200 MG PO HS PRN for CONSTIPATION-1ST LINE, (Reported) Fexofenadine HCl 60 Mg Tablet, 60 MG PO BID PRN for ALLERGIES, (Reported) Gabapentin 600 Mg Tablet, 600 MG PO HS, (Reported) LAST FILLED #90 09-20-18 Granisetron 1 Each Patch.tdwk, 1 PATCH TD Romero, (Reported) Loperamide HCl 2 Mg Tablet, PO UD PRN for DIARRHEA, (Reported) Losartan Potassium 100 Mg Tablet, 50 MG PO DAILY, (Reported) TAKES 1/2 (100MG) TABLET Morphine Sulfate 30 Mg Tablet.er, 30 MG PO BID, (Reported) LAST FILLED #56 01-09-19 Morphine Sulfate 15 Mg Tablet, 15 MG PO TID PRN for PAIN-SEVERE (8-10), (Reported) LAST FILLED #28 11-15-18 Naloxegol Oxalate 25 Mg Tablet, 25 MG PO , (Reported) DOES NOT TAKE ON TUESDAYS FOR CHEMO Ondansetron 8 Mg Tab.rapdis, 8 MG PO TID PRN for NAUSEA/VOMITING-1ST LINE, (Reported) Pantoprazole Sodium 40 Mg Tablet.dr, 40 MG PO DAILY, (Reported) Phenazopyridine HCl 97.5 Mg Tablet, 97.5 MG PO DAILY PRN for URINARY PAIN, (Reported) Polyethylene Glycol 3350 17 Gm Powd.pack, 17 GM PO Q2H PRN for CONSTIPATION-2ND LINE, (Reported) Potassium Chloride 10 Meq Tab.er.prt, 10 MEQ PO BID, (Reported) LAST FILLED #180 10-19-18 Potassium Phosphate,Monobasic 500 Mg Tablet.alba, 1,000 MG PO BID, (Reported) Promethazine HCl 25 Mg Supp.rect, 25 MG RC Q6H PRN for NAUSEA/VOMITING-2ND LINE Prescribed by: NGOC CASTRO on 07/20/20 1240 Rosuvastatin Calcium 10 Mg Tablet, 10 MG PO DAILY, (Reported) Sennosides 8.6 Mg Tablet, 8.6 MG PO DAILY PRN for CONSTIPATION-5TH LINE, (Reported) Temazepam 15 Mg Capsule, 15 MG PO HS PRN for SLEEP, (Reported) LAST FILLED #28 11-16-18 Thyroid,Pork 30 Mg Tablet, 30 MG PO DAILY, (Reported) Tramadol HCl 50 Mg Tablet, 50 MG PO TID PRN for PAIN-MODERATE (5-7), (Reported) LAST FILLED #90 06-01-18 [Valcade] , INJ WEDNESDAY, (Reported) Patient Home Medication List Home Medication List Reviewed: Yes Review of Systems Review of Systems Constitutional: No chills, No fever; malaise EENTM: no symptoms reported Respiratory: no symptoms reported Cardiovascular: no symptoms reported Gastrointestinal: see HPI, nausea, vomiting Genitourinary: see HPI Musculoskeletal: no symptoms reported Skin: no symptoms reported Psychiatric/Neurological: No Symptoms Reported Past Mzhrwbu-Bvpxjz-Xgzalr Hx Past Med/Social Hx: Reviewed Nursing Past Med/Soc Hx Patient Social History Alcohol Use: Denies Use Smoking Status: Never a Smoker 2nd Hand Smoke Exposure: No Recent Infectious Disease Expo: No Recent Hopitalizations: No Immunizations Up To Date Date of Pneumonia Vaccine: Sep 29, 2017 Date of Influenza Vaccine: Nov 29, 2018 Seasonal Allergies Seasonal Allergies: No Past Medical History Surgeries: Yes (colon resection; stem cell transplant) Appendectomy, Bowel Surgery, Gallbladder, Hysterectomy Respiratory: No Cardiac: Yes Hypertension Neurological: No Genitourinary: Yes Bladder Infection Gastrointestinal: No Musculoskeletal: No Endocrine: No HEENT: No Cancer: Yes (blood cancer; light chain proteins, MULTIPLE MYELOMA) Psychosocial: No Integumentary: No Blood Disorders: Yes Family Medical History Cancer, Stroke Physical Exam Vital Signs Vital Signs - First Documented 07/20/20 10:20 Temp 37.0 Pulse 75 Resp 18 B/P (MAP) 148/75 (99) Pulse Ox 96 Capillary Refill : Less Than 3 Seconds Height, Weight, BMI Height: 5'1.00" Weight: 127lbs. oz. 57.110150uj; 25.00 BMI Method:Stated General Appearance: No Apparent Distress, WD/WN HEENT: PERRL/EOMI Neck: Full Range of Motion, Supple Respiratory: Chest Non Tender, Lungs Clear, Normal Breath Sounds, No Accessory Muscle Use, No Respiratory Distress Cardiovascular: Regular Rate, Rhythm, Normal Peripheral Pulses Gastrointestinal: Normal Bowel Sounds, No Pulsatile Mass, Non Tender, Soft Rectal: Deferred Extremity: Normal Capillary Refill, Normal Inspection, No Pedal Edema Neurologic/Psychiatric: Alert, Oriented x3, dispensary attendant II-XII Norm as Tested Skin: Normal Color, Warm/Dry Progress/Results/Core Measures Suspected Sepsis Recent Fever Within 48 Hours: No Infection Criteria Present: None New/Unexplained Altered Menta: No Sepsis Screen: No Definite Risk SIRS Temperature: Pulse: 75 Respiratory Rate: 18 Laboratory Tests 07/20/20 10:50: White Blood Count 6.0 Blood Pressure 148 /75 Mean: 99 Laboratory Tests 07/20/20 10:50: Creatinine 1.47H, Platelet Count 126L, Total Bilirubin 0.5 Results/Orders Lab Results Laboratory Tests Test 07/20/20 10:30 07/20/20 10:50 Range/Units Urine Color YELLOW Urine Clarity CLEAR Urine pH 6.5 5-9 Urine Specific [place] 1.025 H 1.016-1.022 Urine Protein 2+ H NEGATIVE Urine Glucose (UA) TRACE H NEGATIVE Urine Ketones NEGATIVE NEGATIVE Urine Nitrite NEGATIVE NEGATIVE Urine Bilirubin NEGATIVE NEGATIVE Urine Urobilinogen 1.0 < = 1.0 MG/DL Urine Leukocyte Esterase NEGATIVE NEGATIVE Urine RBC (Auto) NEGATIVE NEGATIVE Urine RBC 0-2 /HPF Urine WBC 2-5 /HPF Urine Squamous Epithelial Cells 5-10 /HPF Urine Crystals NONE /LPF Urine Bacteria MODERATE H /HPF Urine Casts PRESENT /LPF Urine Hyaline Casts 2-5 H /LPF Urine Mucus LARGE H /LPF Urine Culture Indicated YES White Blood Count 6.0 4.3-11.0 10^3/uL Red Blood Count 3.88 L 4.35-5.85 10^6/uL Hemoglobin 12.0 11.5-16.0 G/DL Hematocrit 37 35-52 % Mean Corpuscular Volume 96 80-99 FL Mean Corpuscular Hemoglobin 31 25-34 PG Mean Corpuscular Hemoglobin Concent 32 32-36 G/DL Red Cell Distribution Width 14.4 10.0-14.5 % Platelet Count 126 L 130-400 10^3/uL Mean Platelet Volume 10.6 H 7.4-10.4 FL Immature Granulocyte % (Auto) 0 % Neutrophils (%) (Auto) 83 H 42-75 % Lymphocytes (%) (Auto) 10 L 12-44 % Monocytes (%) (Auto) 7 0-12 % Eosinophils (%) (Auto) 0 0-10 % Basophils (%) (Auto) 0 0-10 % Neutrophils # (Auto) 5.0 1.8-7.8 X 10^3 Lymphocytes # (Auto) 0.6 L 1.0-4.0 X 10^3 Monocytes # (Auto) 0.4 0.0-1.0 X 10^3 Eosinophils # (Auto) 0.0 0.0-0.3 10^3/uL Basophils # (Auto) 0.0 0.0-0.1 10^3/uL Immature Granulocyte # (Auto) 0.0 0.0-0.1 10^3/uL Percent Immature Platelet Fraction 2.2 0.0-7.6 % Sodium Level 138 135-145 MMOL/L Potassium Level 3.5 L 3.6-5.0 MMOL/L Chloride Level 104 98-107 MMOL/L Carbon Dioxide Level 23 21-32 MMOL/L Anion Gap 11 5-14 MMOL/L Blood Urea Nitrogen 17 7-18 MG/DL Creatinine 1.47 H 0.60-1.30 MG/DL Estimat Glomerular Filtration Rate 35 BUN/Creatinine Ratio 12 Glucose Level 159 H 70-105 MG/DL Calcium Level 9.4 8.5-10.1 MG/DL Corrected Calcium 9.3 8.5-10.1 MG/DL Total Bilirubin 0.5 0.1-1.0 MG/DL Aspartate Amino Transf (AST/SGOT) 13 5-34 U/L Alanine Aminotransferase (ALT/SGPT) < 5 0-55 U/L Alkaline Phosphatase 84 40-136 U/L Total Protein 6.1 L 6.4-8.2 GM/DL Albumin 4.1 3.2-4.5 GM/DL Lipase 23 8-78 U/L My Orders Orders - NGOC CASTRO MD Comprehensive Metabolic Panel (07/20/20 10:40) Lipase (07/20/20 10:40) Ua Culture If Indicated (07/20/20 10:40) Ed Iv/Invasive Line Start (07/20/20 10:40) Cbc With Automated Diff (07/20/20 10:40) Ns Iv 1000 Ml (Sodium Chloride 0.9%) (07/20/20 10:45) Morphine Injection (Morphine Injection (07/20/20 10:40) Promethazine Injection (Phenergan Injec (07/20/20 10:40) Urine Culture (07/20/20 10:30) Morphine Injection (Morphine Injection (07/20/20 11:44) Promethazine Injection (Phenergan Injec (07/20/20 11:44) Heparin (Central Iv Flush) (Heparin (Yamil (07/20/20 12:40) Vital Signs/I&O 07/20/20 07/20/20 10:20 14:18 Temp 37.0 Pulse 75 89 Resp 18 20 B/P (MAP) 148/75 (99) 174/90 Pulse Ox 96 98 Capillary Refill : Less Than 3 Seconds Blood Pressure Mean: 99 Progress Note #1: Progress Note Check basic labs to see what her electrolytes and blood count are showing. Obtain urinalysis and she does have a history of having a UTI when she gets dehydrated. Try giving IV fluids for hydration as well as morphine 4 mg IV and Phenergan 25 mg IV through her port. Progress Note #2: Progress Note CBC without acute significant anomaly. Her urinalysis does show elevated specific gravity of 1.025. She has protein and bacteria in the urine but negative nitrites and negative leukocyte esterase. Progress Note #3: Progress Note Patient advised her labs showed no acute significant relief. She had stable CBC and chemistry. Her potassium was at lower limit of normal 3.5. Her creatinine look good for her at 1.47. Her urine did have some bacteria but there were no nitrites or leukocyte esterase and she had 5-10 epithelial cells. This is possibly contamination of skin bacteria rather than true bladder infection. She is not having symptoms of a bladder infection so will defer antibiotics unless she starts having worsening problems. Encourage fluids and with her having continued pain after the first dose of medication we will repeat the morphine and give an additional 25 of Phenergan. The first 25 Phenergan was mixed in with her liter of normal saline. She was given the second dose on a mini infuser. Plan discharge to home to continue home medicine after that unless she has worsening symptoms or a change Departure Impression Primary Impression: Nausea and vomiting in adult Disposition: 01 HOME, SELF-CARE Condition: Improved Departure-Patient Inst. Decision time for Depature: 12:38 Referrals: [facility] (PCP) Primary Care Physician ANA LUISA BARRAGAN APRN (Family) Primary Care Physician Patient Instructions: Nausea and Vomiting, Adult ED Add. Discharge Instructions: Continue to push fluids and rest. Take your medicines as prescribed. Follow up with clinic if not improving or having worsening symptoms All discharge instructions reviewed with patient and/or family. Voiced understanding. Scripts Promethazine HCl (Promethazine Suppository) 25 Mg Supp.rect 25 MG RC Q6H PRN for NAUSEA/VOMITING-2ND LINE, #14 SUPP.RECT 0 Refills Prov: NGOC CASTRO MD 07/20/20 NGOC CASTRO MD Jul 20, 2020 11:19
[2020-07-20] MEDS ORDERED: HEParin (CENTRAL IV FLUSH) 500 UNIT/5 ML SYR IV STA (12:40)
[2020-07-20] MEDS ORDERED: PROM25SU44 RC (12:40)
[2020-07-20 14:18] VITALS: BP 174/90
== END 2020-07-20 14:18 | disposition home or self-care (01) ==
LOC: EDUNIT# 10:08 → ER FS 10:09
DX: R11.2 Nausea with vomiting, unspecified (principal); I10 Essential (primary) hypertension; R82.998 Other abnormal findings in urine; Z87.440 Personal history of urinary (tract) infections
CPT/HCPCS: 36415; 80053; 81000; 83690; 85025; 87088

== ENCOUNTER 2020-08-21 11:03 | Emergency (ER) | payer MEDICARE, OTHER ==
[~2020-08-21] VITALS: Ht 152.4 cm; Wt 54.6 kg
[2020-08-21] MEDS ORDERED: NS IV 500 ML 500 ML IV ONE (11:30)
[2020-08-21] MEDS ORDERED: ONDANSETRON 4 MG/2 ML (SDV) Z0FRAN IVP ONE (11:30)
[2020-08-21] MEDS ORDERED: morphine INJ 10 MG/ML 1ML (SYR OR VIAL) IVP ONE (11:30)
--- NOTE | 2020-08-21 11:31 | ED General ---
General Chief Complaint: Abdominal/GI Problems Stated Complaint: GEN WEAKNESS Source of Information: Patient Exam Limitations: No Limitations History of Present Illness Date Seen by Provider: Aug 21, 2020 Time Seen by Provider: 11:11 Initial Comments Here by EMS with report of persistent nausea and vomiting since Wednesday morning. She states she was able to take her medications on Wednesday night but none since. She is not able to keep anything down. She has been using Phenergan suppositories at home which will make her sleep but then when she wakes up she is unable to take her medicines. She does have multiple myeloma and is on chemotherapy. She normally takes morphine long-acting twice daily 30 mg dose and she has not been able to take that either. She has had history of similar presentations a few times this year. Denies fever chills. Has had both Covid vaccines and denies any exposure. No report of blood in vomit or stool. States she is cold but denies fevers. Timing/Duration: 2-3 Days Severity: Moderate Associated Systoms: No Chest Pain, No Cough; Fever/Chills; No Headaches; Nausea/Vomiting; No Shortness of Air Allergies and Home Medications Allergies Coded Allergies: Sulfa (Sulfonamide Antibiotics) (Verified Allergy, Unknown, hives, 05/24/18) latex (Verified Allergy, Unknown, anaphylaxis, 05/24/18) vancomycin (Verified Allergy, Unknown, hives, 05/24/18) Home Medications ALPRAZolam 0.25 Mg Tablet, 0.25 MG PO TID PRN for ANXIETY, (Reported) LAST FILLED #84 09-30-18 Acyclovir 400 Mg Tablet, 400 MG PO BID, (Reported) LAST FILLED #180 07-10-18 Amlodipine Besylate 5 Mg Tablet, 5 MG PO DAILY, (Reported) Apixaban 5 Mg Tablet, 5 MG PO BID, (Reported) Calcium Carbonate/Vitamin D3 1 Each Tablet, 1 TAB PO BID, (Reported) Cholecalciferol (Vitamin D3) 2,000 Unit Tablet, 2,000 UNIT PO BID, (Reported) Cyanocobalamin 1,000 Mcg/Ml Inj, 1,000 MCG IM UD, (Reported) TAKES WEEKLY X 4 WEEKS THEN ONCE MONTHLY - FIRST DOSE 02-27-19 Diphenhydramine HCl 25 Mg Capsule, 100 MG PO HS PRN for ITCHING, (Reported) Docusate Sodium 100 Mg Capsule, 200 MG PO HS PRN for CONSTIPATION-1ST LINE, (Reported) Fexofenadine HCl 60 Mg Tablet, 60 MG PO BID PRN for ALLERGIES, (Reported) Gabapentin 600 Mg Tablet, 600 MG PO HS, (Reported) LAST FILLED #90 09-20-18 Granisetron 1 Each Patch.tdwk, 1 PATCH TD Romero, (Reported) Loperamide HCl 2 Mg Tablet, PO UD PRN for DIARRHEA, (Reported) Losartan Potassium 100 Mg Tablet, 50 MG PO DAILY, (Reported) TAKES 1/2 (100MG) TABLET Morphine Sulfate 30 Mg Tablet.er, 30 MG PO BID, (Reported) LAST FILLED #56 01-09-19 Morphine Sulfate 15 Mg Tablet, 15 MG PO TID PRN for PAIN-SEVERE (8-10), (Reported) LAST FILLED #28 11-15-18 Naloxegol Oxalate 25 Mg Tablet, 25 MG PO SuMoWeTh, (Reported) DOES NOT TAKE ON TUESDAYS FOR CHEMO Ondansetron 8 Mg Tab.rapdis, 8 MG PO TID PRN for NAUSEA/VOMITING-1ST LINE, (Reported) Pantoprazole Sodium 40 Mg Tablet.dr, 40 MG PO DAILY, (Reported) Phenazopyridine HCl 97.5 Mg Tablet, 97.5 MG PO DAILY PRN for URINARY PAIN, (Reported) Polyethylene Glycol 3350 17 Gm Powd.pack, 17 GM PO Q2H PRN for CONSTIPATION-2ND LINE, (Reported) Potassium Chloride 10 Meq Tab.er.prt, 10 MEQ PO BID, (Reported) LAST FILLED #180 10-19-18 Potassium Phosphate,Monobasic 500 Mg Tablet.alba, 1,000 MG PO BID, (Reported) Promethazine HCl 25 Mg Supp.rect, 25 MG RC Q6H PRN for NAUSEA/VOMITING-2ND LINE Prescribed by: NGOC CASTRO on 07/20/20 1240 Rosuvastatin Calcium 10 Mg Tablet, 10 MG PO DAILY, (Reported) Sennosides 8.6 Mg Tablet, 8.6 MG PO DAILY PRN for CONSTIPATION-5TH LINE, (Reported) Temazepam 15 Mg Capsule, 15 MG PO HS PRN for SLEEP, (Reported) LAST FILLED #28 11-16-18 Thyroid,Pork 30 Mg Tablet, 30 MG PO DAILY, (Reported) Tramadol HCl 50 Mg Tablet, 50 MG PO TID PRN for PAIN-MODERATE (5-7), (Reported) LAST FILLED #90 06-01-18 [[place]] , INJ WEDNESDAY, (Reported) Patient Home Medication List Home Medication List Reviewed: Yes Review of Systems Review of Systems Constitutional: see HPI, chills; No diaphoresis, No fever EENTM: no symptoms reported Respiratory: No cough, No short of breath Cardiovascular: No chest pain, No edema Gastrointestinal: nausea, vomiting Genitourinary: no symptoms reported Musculoskeletal: other (Chronic pain) Skin: no symptoms reported All Other Systems Reviewed Negative Unless Noted: Yes Past [id number]-Vvmgvm Hx Patient Social History Tobacco Use?: No Alcohol Use?: No Seasonal Allergies Seasonal Allergies: No Past Medical History Surgeries: Yes (colon resection; stem cell transplant) Appendectomy, Bowel Surgery, Gallbladder, Hysterectomy Respiratory: No Cardiac: Yes Hypertension Neurological: No Genitourinary: Yes Bladder Infection Gastrointestinal: No Musculoskeletal: No Endocrine: No HEENT: No Cancer: Yes (blood cancer; light chain proteins, MULTIPLE MYELOMA) Psychosocial: No Integumentary: No Blood Disorders: Yes Family Medical History Reviewed and Corrections made Cancer, Stroke Physical Exam Vital Signs Vital Signs - First Documented 08/21/20 11:03 Temp 36.5 Pulse 79 Resp 20 B/P (MAP) 142/113 (123) Pulse Ox 98 O2 Delivery Room Air Capillary Refill : Height, Weight, BMI Height: 5'1.00" Weight: 127lbs. oz. 57.348984mg; 25.00 BMI Method:Stated General Appearance: WD/WN, Mild Distress (Nausea and uncontrolled pain) Neck: Non Tender, Supple Respiratory: Lungs Clear, Normal Breath Sounds Cardiovascular: Regular Rate, Rhythm, No Murmur Gastrointestinal: Non Tender, Soft Back: Normal Inspection, No CVA Tenderness, No Vertebral Tenderness Extremity: Normal Range of Motion, Non Tender Neurologic/Psychiatric: Alert, Oriented x3 Skin: Normal Color, Warm/Dry Progress/Results/Core Measures Suspected Sepsis SIRS Temperature: Pulse: Respiratory Rate: Laboratory Tests 08/21/20 11:25: White Blood Count 9.2 Blood Pressure / Mean: Laboratory Tests 08/21/20 11:25: Creatinine 1.35H, Platelet Count 151, Total Bilirubin 0.5 Results/Orders Lab Results Laboratory Tests Test 08/21/20 11:25 Range/Units White Blood Count 9.2 4.3-11.0 10^3/uL Red Blood Count 3.94 L 4.35-5.85 10^6/uL Hemoglobin 12.4 11.5-16.0 G/DL Hematocrit 36 35-52 % Mean Corpuscular Volume 94 80-99 FL Mean Corpuscular Hemoglobin 31 25-34 PG Mean Corpuscular Hemoglobin Concent 34 32-36 G/DL Red Cell Distribution Width 15.1 H 10.0-14.5 % Platelet Count 151 130-400 10^3/uL Mean Platelet Volume 10.2 7.4-10.4 FL Immature Granulocyte % (Auto) 0 % Neutrophils (%) (Auto) 84 H 42-75 % Lymphocytes (%) (Auto) 9 L 12-44 % Monocytes (%) (Auto) 6 0-12 % Eosinophils (%) (Auto) 0 0-10 % Basophils (%) (Auto) 0 0-10 % Neutrophils # (Auto) 7.7 1.8-7.8 X 10^3 Lymphocytes # (Auto) 0.8 L 1.0-4.0 X 10^3 Monocytes # (Auto) 0.6 0.0-1.0 X 10^3 Eosinophils # (Auto) 0.0 0.0-0.3 10^3/uL Basophils # (Auto) 0.0 0.0-0.1 10^3/uL Immature Granulocyte # (Auto) 0.0 0.0-0.1 10^3/uL Sodium Level 142 135-145 MMOL/L Potassium Level 3.2 L 3.6-5.0 MMOL/L Chloride Level 106 98-107 MMOL/L Carbon Dioxide Level 20 L 21-32 MMOL/L Anion Gap 16 H 5-14 MMOL/L Blood Urea Nitrogen 12 7-18 MG/DL Creatinine 1.35 H 0.60-1.30 MG/DL Estimat Glomerular Filtration Rate 39 BUN/Creatinine Ratio 9 Glucose Level 116 H 70-105 MG/DL Calcium Level 9.9 8.5-10.1 MG/DL Corrected Calcium 9.6 8.5-10.1 MG/DL Total Bilirubin 0.5 0.1-1.0 MG/DL Aspartate Amino Transf (AST/SGOT) 13 5-34 U/L Alanine Aminotransferase (ALT/SGPT) < 5 0-55 U/L Alkaline Phosphatase 75 40-136 U/L Total Protein 6.6 6.4-8.2 GM/DL Albumin 4.4 3.2-4.5 GM/DL My Orders Orders - AINSLEY ROYAL MD Cbc With Automated Diff (08/21/20 11:19) Comprehensive Metabolic Panel (08/21/20 11:19) Ed Iv/Invasive Line Start (08/21/20 11:19) Ns Iv 500 Ml (Sodium Chloride 0.9%) (08/21/20 11:30) Ondansetron Injection (Zofran Injectio (08/21/20 11:30) Morphine Injection (Morphine Injection (08/21/20 11:30) Dexamethasone Injection (Decadron Injec (08/21/20 11:30) Medications Given in ED Current Medications Medications Dose Ordered Sig/Eligio Route Start Time Stop Time Status Last Admin Dose Admin Dexamethasone Sodium Phosphate 4 mg ONCE ONCE IV 08/21/20 11:30 08/21/20 11:31 DC 08/21/20 11:33 4 MG Morphine Sulfate 10 mg ONCE ONCE IVP 08/21/20 11:30 08/21/20 11:31 DC 08/21/20 11:35 10 MG Ondansetron HCl 8 mg ONCE ONCE IVP 08/21/20 11:30 08/21/20 11:31 DC 08/21/20 11:35 8 MG Sodium Chloride 500 ml @ 0 mls/hr Q0M ONCE IV 08/21/20 11:30 08/21/20 11:31 DC 08/21/20 11:33 0 MLS/HR Vital Signs/I&O 08/21/20 11:03 Temp 36.5 Pulse 79 Resp 20 B/P (MAP) 142/113 (123) Pulse Ox 98 O2 Delivery Room Air Capillary Refill : Progress Note : Progress Note Seen and evaluated. IV access via port. Normal saline 500 mL bolus, Zofran 8 mg IV, Decadron 4 mg IV and morphine 10 mg IV ordered. We will check some basic labs given the 3-day history of vomiting. Monitor patient. Previous history reviewed. 1229: Overall feeling much better. Labs reviewed and do not show any significant abnormality although potassium slightly low but should improve with diet. She has tolerated ice chips. We will prescribe the ondansetron 8 mg version to see if that helps her better as that is what we gave here. She was appreciative of that. Discharged home with return precautions. Patient verbalized understanding of instructions and agreement with plan. Departure Impression Primary Impression: Nausea and vomiting Qualified Codes: R11.2 - Nausea with vomiting, unspecified Disposition: HOME, SELF-CARE Condition: Improved Departure-Patient Inst. Decision time for Depature: 12:31 Referrals: [facility] (PCP) Primary Care Physician ANA LUISA BARRAGAN APRN (Family) Primary Care Physician Patient Instructions: Nausea and Vomiting With Cancer Treatment Add. Discharge Instructions: All discharge instructions reviewed with patient and/or family. Voiced understanding. Clear a light diet for the next 24 hours and then advance as tolerated. You would benefit from some electrolyte containing solutions such as Gatorade or Pedialyte although watered-down would be better. Take small sips frequently. Follow-up with your doctor for recheck and further evaluation within the next several days as needed. Return for worse pain, fever, vomiting, weakness, breathing problems or other concerns as needed. Scripts Ondansetron (Ondansetron Odt) 8 Mg Tab.rapdis 8 MG PO Q8H PRN for NAUSEA/VOMITING, #12 TAB Prov: AINSLEY ROYAL MD 08/21/20 AINSLEY ROYAL MD Aug 21, 2020 11:31
[2020-08-21 11:40] LABS: BASOPHILS % (AUTO) 0 % (0-10); EOSINOPHILS % (AUTO) 0 % (0-10); HEMATOCRIT 36 % (35-52); HEMOGLOBIN 12.4 G/DL (11.5-16.0); LYMPHOCYTES % (AUTO) 9 % (12-44); MEAN CORPUSCULAR HEMOGLOBIN 31 PG (25-34); MEAN CORPUSCULAR HGB CONC 34 G/DL (32-36); MEAN CORPUSCULAR VOLUME 94 FL (80-99); MEAN PLATELET VOLUME 10.2 FL (7.4-10.4); MONOCYTES % (AUTO) 6 % (0-12); NEUTROPHILS % (AUTO) 84 % (42-75); PLATELET COUNT 151 10^3/uL (130-400); WHITE BLOOD COUNT 9.2 10^3/uL (4.3-11.0)
[2020-08-21 11:41] LABS: LYMPHOCYTES # (AUTO) 0.8 X 10^3 (1.0-4.0); MONOCYTES # (AUTO) 0.6 X 10^3 (0.0-1.0); NEUTROPHILS # (AUTO) 7.7 X 10^3 (1.8-7.8)
[2020-08-21 11:55] LABS: ALANINE AMINOTRANSFERASE < 5 U/L (0-55); ALBUMIN 4.4 GM/DL (3.2-4.5); ALKALINE PHOSPHATASE 75 U/L (40-136); BILIRUBIN,TOTAL 0.5 MG/DL (0.1-1.0); BUN/CREATININE RATIO 9; CALCIUM 9.9 MG/DL (8.5-10.1); CARBON DIOXIDE 20 MMOL/L (21-32); CHLORIDE 106 MMOL/L (98-107); CREATININE SERUM 1.35 MG/DL (0.60-1.30); GFR ESTIMATED 39; GLUCOSE 116 MG/DL (70-105); POTASSIUM 3.2 MMOL/L (3.6-5.0); SODIUM 142 MMOL/L (135-145); TOTAL PROTEIN 6.6 GM/DL (6.4-8.2)
[2020-08-21] MEDS ORDERED: ONDA8TAB13 PO (12:33)
[2020-08-21 12:55] VITALS: BP 141/73
== END 2020-08-21 12:55 | disposition home or self-care (01) ==
LOC: ER FS 11:03
DX: R11.2 Nausea with vomiting, unspecified (principal); I10 Essential (primary) hypertension; C90.00 Multiple myeloma not having achieved remission; C95.90 Leukemia, unspecified not having achieved remission; Z79.899 Other long term (current) drug therapy
CPT/HCPCS: 36415; 80053; 85025

== ENCOUNTER 2020-10-20 09:03 | Emergency (ER) | payer MEDICARE, OTHER ==
[~2020-10-20] VITALS: Ht 154.9 cm; Wt 52.2 kg
[2020-10-20 09:05] VITALS: BP 148/91
--- OUTSIDE RECORDS SUMMARY | 2020-10-20 09:08 | XMS REPORT | Clinical Summary ---
Author Author [facility] Organization [facility] Address Unknown Phone Unavailable Care Team Providers Care Process Specialist Name Role Phone Geneva Sigala APRN PCP Allergies Comments Active Allergy Reactions Severity Noted Date Latex, Natural Rubber 12/13/2014 Sulfa (Sulfonamide 12/13/2014 Antibiotics) Vancomycin Analogues 12/13/2014 Medications End Date Status Medication Sig Dispensed Refills Start Date Active FEXOFENADINE/PSEUDOEPHEDR Take by mouth 0 INE (TRACY-D 24 HOUR as needed. ORAL) Active ALPRAZolam (XANAX) 0.25 Take 0.25 mg 0 MG tablet by mouth 3 (three) times a day as needed for sleep. Active acyclovir (ZOVIRAX) 400 2 (two) times 0 MG tablet a day. 8 Active LORazepam (ATIVAN) 0.5 MG as needed. 0 03/12 tablet 8 Active morphine (MSIR) 15 MG every 4 0 03/10/19 1 tablet (four) hours 8 as needed. Active MOVANTIK 25 mg daily. 0 TabIndications: pt takes 8 30 min before breakfast Active ondansetron (ZOFRAN-ODT) as needed. 0 04/04 8 MG disintegrating 8 tablet Active pantoprazole (PROTONIX) daily. 5 40 MG tablet 8 Active traMADol (ULTRAM) 50 mg TK 1-2 TS PO 0 tablet Q 4-6 HOURS 7 PRN FOR PAIN Active zolpidem (AMBIEN) 5 MG 0 tablet 8 Active temazepam (RESTORIL) 15 nightly as 0 mg capsule needed. 8 Active metoclopramide (REGLAN) Take 10 mg by 0 10 MG tabletIndications: mouth 4 pt states she takes it 30 (four) times min before meals a day. Active prochlorperazine Take 10 mg by 0 (COMPAZINE) 10 MG tablet mouth 4 (four) times a day. Active morphine (MS CONTIN) 30 30 mg 2 (two) 0 15/ 201 MG 12 hr tablet times a day. 8 Active SANCUSO 3.1 mg/24 hour every 7 0 10/14/ 01 (seven) days. 8 Active polyethylene glycol Take 17 g by 0 (GLYCOLAX) 17 gram packet mouth as needed. Active senna (SENOKOT) 8.6 mg Take 1 tablet 0 tablet by mouth as needed. Active gabapentin (NEURONTIN) Take 600 mg 0 01 600 MG tablet by mouth 8 nightly. Active hydrOXYzine (ATARAX) 25 Take 25 mg by 0 07/31/ 201 MG tablet mouth daily. 9 Active rosuvastatin (CRESTOR) 10 Take 10 mg by 0 / 8/201 MG tablet mouth daily. 9 Active amLODIPine (NORVASC) 5 MG Take 1 tablet 90 tablet 3 tablet (5 mg total) 9 by mouth daily. Active losartan (COZAAR) 100 MG Take 0.5 45 tablet 3 0 tablet tablets (50 9 mg total) by mouth daily. Active bortezomib (VELCADE INJ) weekly. 0 Active ELIQUIS 5 mg tablet Take 5 mg by 0 mouth 2 (two) 9 times a day. Active potassium phosphate, Take 500 mg 0 monobasic, (K-PHOS) 500 by mouth 2 mg tablet (two) times a day. 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 Proteinuria 12/14/2014 Family History Medical History Relation Name Comments Diabetes Brother Hypertension Brother Stroke Brother Cancer Father Cancer Mother Diabetes Mother Hypertension Mother Sarcoidosis Sister Fibromyalgia Sister Lupus Sister Hypertension Sister Liver disease Sister Sarcoidosis Sister Cancer Son Relation Name Status Comments Brother Father Mother Sister Sister Sister Sister Son Social History Date Tobacco Use Types Packs/Day Years Used Never Smoker Smokeless Tobacco: Never Used Comments Alcohol Use Standard Drinks/Week No 0 (1 standard drink = 0.6 o z pure alcohol) Sex Assigned at Date Recorded Not on file Last Filed Vital Signs Reading Time Taken Comments Vital Sign 117/60 01/18/2019 1:56 PM [employer] Blood Pressure 77 01/18/2019 1:56 PM [employer] Pulse 36.5 C (97.7 F) 01/18/2019 1:56 PM [employer] Temperature 16 01/18/2019 1:56 PM [employer] Respiratory Rate 94% 12/14/2014 4:44 PM [employer] Oxygen Saturation - - Inhaled Oxygen Concentration 52.2 kg (115 lb) 01/18/2019 1:56 PM [employer] Weight 154.9 cm (5' 1") 01/18/2019 1:56 PM [employer] Height 21.73 01/18/2019 1:56 PM [employer] Body Mass Index Plan of Treatment Health Maintenance Due Date Last Done Comments Advance Directive has 1950 been filed Hepatitis C Screen 1950 Medicare Annual Wellness 1950 Td/Tdap# 1950 COVID-19 Vaccine (1) 1964 Colorectal Screening via 2002 Colonoscopy Mammogram Screening 2002 Zoster Vaccine# (1 of 2) 2002 Advance Directive 2017 Conversation Depression Screening 2017 PHQ-9 # Fall Risk Assessment # 2017 12/14/2014 Osteoporosis Screening 2017 Patient Needs Advance 2017 Directive Pneumococcal Vaccine: 65+ 12/14/2017 10/19/2017 Years (2 of 4 - PPSV23) Influenza Vaccine (#1) 2020 11/14/2018, 11/18/2017, 12/07/2016, Additional history exists Results Not on filefrom Last 3 Months Insurance Type Payer Benefit Subscriber ID Effective Phone Address Plan / Dates Group Medicare MEDICARE MEDICARE [id number] 2017-P [place], [place] COMMERCIAL-NONCONTRACTED MISC [id number] COMMERCIAL [place] NONCONTRAC [place]UBIA 1 Sharon Calero A Personal/F Self 1950 [email or web address] (Home) [place] [id number] Advance Directives For more information, please contact: [phone] Patient Gis Physical Scientist Explanation Type Date Recorded Advance Directives and Living Will Health Care Directive Power of Corrections Specialist 03/18/2015 9:32 PM Date Inactivated Comments Code Status Date Activated 12/14/2014 11:32 PM Full Code 12/14/2014 12:38 PM
[2020-10-20] MEDS ORDERED: FAMOTIDINE 20MG/2ML IV (PEPCID) IV STA (09:09)
[2020-10-20] MEDS ORDERED: LACTATED RINGERS 1,000 ML IV STA (09:09)
--- NOTE | 2020-10-20 09:09 | ED GI ---
General Stated Complaint: VOMITING History of Present Illness Date Seen by Provider: Oct 20, 2020 Time Seen by Provider: 09:07 Initial Comments 70-year-old female presents with some nausea and vomiting for couple days. Patient has a history of some chronic recurrent nausea and vomiting. She reports has a history of multiple myeloma normally gets chemotherapy on Mondays. She is not sure if she is getting the nausea vomiting because she missed her chemo due to Day and is scheduled for tomorrow or if there is another c ause. Patient reports her Phenergan suppository has not helped. She is having difficulty keeping down. She does not have any abdominal pain. This is similar to her previous episodes of vomiting. Allergies and Home Medications Allergies Coded Allergies: Sulfa (Sulfonamide Antibiotics) (Verified Allergy, Unknown, hives, 05/24/18 ) latex (Verified Allergy, Unknown, anaphylaxis, 05/24/18) vancomycin (Verified Allergy, Unknown, hives, 05/24/18) Patient Home Medication List Home Medication List Reviewed: Yes ALPRAZolam (Xanax Tablet) 0.25 Mg Tablet, 0.25 MG PO TID PRN for ANXIETY, (Reported) Entered as Reported by: ANA LUISA NOVA on 03/01/19 1043 Acyclovir (Acyclovir) 400 Mg Tablet, 400 MG PO BID, (Reported) Entered as Reported by: MAI SEGOVIA on 05/24/18 0932 Amlodipine Besylate (Amlodipine Besylate) 5 Mg Tablet, 5 MG PO DAILY, (Reported) Entered as Reported by: MAI SEGOVIA on 05/24/18 0932 Apixaban (Eliquis) 5 Mg Tablet, 5 MG PO BID, (Reported) Entered as Reported by: ANA LUISA NOVA on 03/01/19 1220 Calcium Carbonate/Vitamin D3 (Os-Alan 500+D3 Caplet) 1 Each Tablet, 1 TAB PO BID, (Reported) Entered as Reported by: ANA LUISA NOVA on 03/01/19 1043 Cholecalciferol (Vitamin D3) (Vitamin D3) 2,000 Unit Tablet, 2,000 UNIT PO BID, (Reported) Entered as Reported by: ANA LUISA NOVA on 03/01/19 1043 Cyanocobalamin (Cyanocobalamin Injection) 1,000 Mcg/Ml Inj, 1,000 MCG IM UD, (Reported) Entered as Reported by: ANA LUISA NOVA on 03/01/19 1044 Diphenhydramine HCl (Benadryl) 25 Mg Capsule, 100 MG PO HS PRN for ITCHING, (Reported) Entered as Reported by: ANA LUISA NOVA on 03/01/19 1043 Docusate Sodium (Colace) 100 Mg Capsule, 200 MG PO HS PRN for CONSTIPATION-1ST LINE, (Reported) Entered as Reported by: ANA LUISA NOVA on 03/01/19 1043 Fexofenadine HCl (Emelia Allergy) 60 Mg Tablet, 60 MG PO BID PRN for ALLERGIES, (Reported) Entered as Reported by: ANA LUISA NOVA on 03/01/19 1043 Gabapentin (Gabapentin) 600 Mg Tablet, 600 MG PO HS, (Reported) Entered as Reported by: MAI SEGOVIA on 05/24/18 0932 Granisetron (Sancuso) 1 Each Patch.tdwk, 1 PATCH TD Romero, (Reported) Entered as Reported by: MAI SEGOVIA on 05/24/18 0932 Loperamide HCl (Imodium A-D) 2 Mg Tablet, PO UD PRN for DIARRHEA, (Reported) Entered as Reported by: ANA LUISA NOVA on 03/01/19 1043 Losartan Potassium (Losartan Potassium) 100 Mg Tablet, 50 MG PO DAILY, (Reported) Entered as Reported by: ANA LUISA NOVA on 03/01/19 1236 Morphine Sulfate (Ms Contin) 30 Mg Tablet.er, 30 MG PO BID, (Reported) Entered as Reported by: ANA LUISA NOVA on 03/01/19 1043 Morphine Sulfate (Morphine Sulfate IR Tablet) 15 Mg Tablet, 15 MG PO TID PRN for PAIN-SEVERE (8-10), (Reported) Entered as Reported by: ANA LUISA NOVA on 03/01/19 1043 Naloxegol Oxalate (Movantik) 25 Mg Tablet, 25 MG PO SuMoWeThFrSa, (Reported) Entered as Reported by: MAI SGEOVIA on 05/24/18 0932 Ondansetron (Ondansetron Odt) 8 Mg Tab.rapdis, 8 MG PO TID PRN for NAUSEA/VOMITING-1ST LINE, (Reported) Entered as Reported by: ANA LUISA NOVA on 03/01/19 1044 Ondansetron (Ondansetron Odt) 8 Mg Tab.rapdis, 8 MG PO Q8H PRN for NAUSEA/VOMITING Prescribed by: AINSLEY ROYAL on 08/21/20 1233 Pantoprazole Sodium (Pantoprazole Sodium) 40 Mg Tablet.dr, 40 MG PO DAILY, (Reported) Entered as Reported by: MAI SEGOVIA on 05/24/18 0932 Phenazopyridine HCl (Azo Urinary Pain Relief) 97.5 Mg Tablet, 97.5 MG PO DAILY PRN for URINARY PAIN, (Reported) Entered as Reported by: ANA LUISA NOVA on 03/01/19 1043 Polyethylene Glycol 3350 (Miralax) 17 Gm Powd.pack, 17 GM PO Q2H PRN for CONSTIPATION-2ND LINE, (Reported) Entered as Reported by: ANA LUISA NOVA on 03/01/19 1043 Potassium Chloride (Klor-Con M10) 10 Meq Tab.er.prt, 10 MEQ PO BID, (Reported) Entered as Reported by: MAI SEGOVIA on 05/24/18 0932 Potassium Phosphate,Monobasic (K-Phos Original) 500 Mg Tablet.alba, 1,000 MG PO BID, (Reported) Entered as Reported by: MAI SEGOVIA on 05/24/18 0932 Promethazine HCl (Promethazine Suppository) 25 Mg Supp.rect, 25 MG RC Q6H PRN for NAUSEA/VOMITING-2ND LINE Prescribed by: NGOC CASTRO on 07/20/20 1240 Rosuvastatin Calcium (Crestor) 10 Mg Tablet, 10 MG PO DAILY, (Reported) Entered as Reported by: ANA LUISA NOVA on 03/01/19 1012 Sennosides (Senokot) 8.6 Mg Tablet, 8.6 MG PO DAILY PRN for CONSTIPATION-5TH LINE, (Reported) Entered as Reported by: ANA LUISA NOVA on 03/01/19 1043 Temazepam (Temazepam) 15 Mg Capsule, 15 MG PO HS PRN for SLEEP, (Reported) Entered as Reported by: ANA LUISA NOVA on 03/01/19 1043 Thyroid,Pork (Carney Thyroid) 30 Mg Tablet, 30 MG PO DAILY, (Reported) Entered as Reported by: ANA LUISA NOVA on 03/01/19 1212 Tramadol HCl (Tramadol HCl) 50 Mg Tablet, 50 MG PO TID PRN for PAIN-MODERATE (5- 7), (Reported) Entered as Reported by: ANA LUISA NOVA on 03/01/19 104 [Valcade] , INJ WEDNESDAY, (Reported) Entered as Reported by: ANA LUISA NOVA on 03/01/19 1043 Review of Systems Review of Systems Constitutional: No chills, No fever EENTM: No Symptoms Reported Respiratory: Denies Cough, Denies Shortness of Air Cardiovascular: Denies Chest Pain, Denies Palpitations Gastrointestinal: Denies Abdominal Pain, Denies Constipated, Denies Diarrhea; Nausea, Vomiting Genitourinary: No Symptoms Reported Musculoskeletal: no symptoms reported Skin: no symptoms reported Psychiatric/Neurological: No Symptoms Reported Endocrine: No Symptoms Reported Hematologic/Lymphatic: No Symptoms Reported Past Uorenih-Ceeyeo-Dicyuh Hx Seasonal Allergies Seasonal Allergies: No Past Medical History Surgery/Hospitalization HX: Colon resection, Stem Cell transplant, GB, Hyst, Appy, Multiple myeloma/Acute Leukemia Hx on active treatment of Velcade. Pt has Complex Regional Pain Syndrome Surgeries: Yes (colon resection; stem cell transplant) Appendectomy, Bowel Surgery, Gallbladder, Hysterectomy Respiratory: No Cardiac: Yes Hypertension Neurological: No Genitourinary: Yes Bladder Infection Gastrointestinal: No Musculoskeletal: No Endocrine: No HEENT: No Cancer: Yes (blood cancer; light chain proteins, MULTIPLE MYELOMA) Psychosocial: No Integumentary: No Blood Disorders: Yes Family Medical History Cancer, Stroke Physical Exam Vital Signs Vital Signs - First Documented 10/20/20 09:05 Temp 36.1 Pulse 75 Resp 22 B/P (MAP) 148/91 (110) Pulse Ox 96 O2 Delivery Room Air Capillary Refill : Height/Weight/BMI Height: 5'1.00" Weight: 127lbs. oz. 57.062020kd; 23.00 BMI Method:Stated General Appearance: WD/WN, no apparent distress Respiratory: lungs clear, normal breath sounds Cardiovascular: normal peripheral pulses, regular rate, rhythm Gastrointestinal: non tender, soft Extremities: normal range of motion, non-tender Neurologic/Psychiatric: alert, normal mood/affect, oriented x 3 Skin: normal color, warm/dry Progress/Results/Core Measures Results/Orders Lab Results Laboratory Tests Test 10/20/20 09:20 Range/Units White Blood Count 6.1 4.3-11.0 10^3/uL Red Blood Count 3.57 L 3.80-5.11 10^6/uL Hemoglobin 11.8 11.5-16.0 g/dL Hematocrit 35 35-52 % Mean Corpuscular Volume 98 80-99 fL Mean Corpuscular Hemoglobin 33 25-34 pg Mean Corpuscular Hemoglobin Concent 34 32-36 g/dL Red Cell Distribution Width 13.9 10.0-14.5 % Platelet Count 184 130-400 10^3/uL Mean Platelet Volume 9.3 9.0-12.2 fL Immature Granulocyte % (Auto) 0 % Neutrophils (%) (Auto) 79 H 42-75 % Lymphocytes (%) (Auto) 14 12-44 % Monocytes (%) (Auto) 7 0-12 % Eosinophils (%) (Auto) 0 0-10 % Basophils (%) (Auto) 0 0-10 % Neutrophils # (Auto) 4.8 1.8-7.8 X 10^3 Lymphocytes # (Auto) 0.8 L 1.0-4.0 X 10^3 Monocytes # (Auto) 0.4 0.0-1.0 X 10^3 Eosinophils # (Auto) 0.0 0.0-0.3 10^3/uL Basophils # (Auto) 0.0 0.0-0.1 10^3/uL Immature Granulocyte # (Auto) 0.0 0.0-0.1 10^3/uL Sodium Level 136 135-145 MMOL/L Potassium Level 3.6 3.6-5.0 MMOL/L Chloride Level 103 98-107 MMOL/L Carbon Dioxide Level 22 21-32 MMOL/L Anion Gap 11 5-14 MMOL/L Blood Urea Nitrogen 16 7-18 MG/DL Creatinine 1.45 H 0.60-1.30 MG/DL Estimat Glomerular Filtration Rate 36 BUN/Creatinine Ratio 11 Glucose Level 132 H 70-105 MG/DL Calcium Level 9.1 8.5-10.1 MG/DL Corrected Calcium 8.9 8.5-10.1 MG/DL Total Bilirubin 0.7 0.1-1.0 MG/DL Aspartate Amino Transf (AST/SGOT) 16 5-34 U/L Alanine Aminotransferase (ALT/SGPT) 10 0-55 U/L Alkaline Phosphatase 73 40-136 U/L Total Protein 6.5 6.4-8.2 GM/DL Albumin 4.3 3.2-4.5 GM/DL Lipase 20 8-78 U/L My Orders Orders - ANA FERNANDEZ DO Cbc With Automated Diff (10/20/20 09:09) Comprehensive Metabolic Panel (10/20/20 09:09) Lipase (10/20/20 09:09) Ua Culture If Indicated (10/20/20 09:09) Ondansetron Injection (Zofran Injectio (10/20/20 09:15) Lactated Ringers (Lr 1000 Ml Iv Solution (10/20/20 09:09) Famotidine Injection (Pepcid Injection) (10/20/20 09:09) Metoclopramide Injection (Reglan Injecti (10/20/20 10:13) Diphenhydramine Injection (Benadryl Inje (10/20/20 10:13) Medications Given in ED Current Medications Medications Dose Ordered Sig/Eligio Route Start Time Stop Time Status Last Admin Dose Admin Ondansetron HCl 4 mg ONCE ONCE IVP 10/20/20 09:15 10/20/20 09:16 DC 10/20/20 09:21 4 MG Vital Signs/I&O 10/20/20 09:05 Temp 36.1 Pulse 75 Resp 22 B/P (MAP) 148/91 (110) Pulse Ox 96 O2 Delivery Room Air Progress Progress Note : Progress Note Patient with no episodes of vomiting while here in the ER. Patient did feel sig nificant better following her IV treatment along with her medications. She reports she is ready to go home. Patient was stable upon discharge. She should follow-up with her primary care provider if her symptoms recur. Departure Impression Primary Impression: Nausea and vomiting in adult Disposition: 01 HOME, SELF-CARE Condition: Stable Departure-Patient Inst. Referrals: ANA LUISA BARRAGAN APRN (PCP) Primary Care Physician [facility] (Family) Primary Care Physician Patient Instructions: Nausea and Vomiting, Adult Add. Discharge Instructions: Clear liquid diet for 24 hours then advance diet as tolerated Follow-up with your primary care provider in 3 to 4 days if symptoms have not resolved ANA FERNANDEZ DO Oct 20, 2020 09:09
[2020-10-20] MEDS ORDERED: ONDANSETRON 4 MG/2 ML (SDV) Z0FRAN IVP ONE (09:15)
[2020-10-20 09:30] LABS: BASOPHILS % (AUTO) 0 % (0-10); EOSINOPHILS % (AUTO) 0 % (0-10); HEMATOCRIT 35 % (35-52); HEMOGLOBIN 11.8 g/dL (11.5-16.0); LYMPHOCYTES # (AUTO) 0.8 X 10^3 (1.0-4.0); LYMPHOCYTES % (AUTO) 14 % (12-44); MEAN CORPUSCULAR HEMOGLOBIN 33 pg (25-34); MEAN CORPUSCULAR HGB CONC 34 g/dL (32-36); MEAN CORPUSCULAR VOLUME 98 fL (80-99); MEAN PLATELET VOLUME 9.3 fL (9.0-12.2); MONOCYTES # (AUTO) 0.4 X 10^3 (0.0-1.0); MONOCYTES % (AUTO) 7 % (0-12); NEUTROPHILS # (AUTO) 4.8 X 10^3 (1.8-7.8); NEUTROPHILS % (AUTO) 79 % (42-75); PLATELET COUNT 184 10^3/uL (130-400); WHITE BLOOD COUNT 6.1 10^3/uL (4.3-11.0)
[2020-10-20 09:43] LABS: POTASSIUM 3.6 MMOL/L (3.6-5.0)
[2020-10-20 09:44] LABS: ALBUMIN 4.3 GM/DL (3.2-4.5); BILIRUBIN,TOTAL 0.7 MG/DL (0.1-1.0); CALCIUM 9.1 MG/DL (8.5-10.1); CREATININE SERUM 1.45 MG/DL (0.60-1.30); TOTAL PROTEIN 6.5 GM/DL (6.4-8.2)
[2020-10-20] MEDS ORDERED: METOCLOPRAMIDE INJ 10 MG/2 ML (REGLAN) IVP STA (10:13)
[2020-10-20] MEDS ORDERED: diphenhydrAMINE 50 MG/ML INJ (BENADRYL) IV STA (10:13)
== END 2020-10-20 12:06 | disposition home or self-care (01) ==
LOC: EDUNIT# 09:03 → ER FS 09:04
DX: C90.00 Multiple myeloma not having achieved remission (principal); R11.2 Nausea with vomiting, unspecified; I10 Essential (primary) hypertension; Z79.01 Long term (current) use of anticoagulants; Z79.899 Other long term (current) drug therapy
CPT/HCPCS: 36415; 80053; 83690; 85025

== ENCOUNTER → 2020-11-07 | Outpatient (CLI) | payer MEDICARE, OTHER ==
--- NOTE | 2020-11-07 13:26 | Diagnostic Imaging Report ---
PROCEDURE: US Renal Bilateral. TECHNIQUE: Multiple real-time grayscale images were obtained over the kidneys in various projections bilaterally. INDICATION: Chronic kidney disease stage III. Right kidney measures 9.4 x 4.0 x 3.7 cm and the left kidney measures 9.1 x 4.5 x 5.1 cm. Both kidneys demonstrate cortical thinning. Cortical echogenicity is normal. No calculi are seen. There is no hydronephrosis. Partially filled urinary bladder is unremarkable. Bilateral ureteral jets were visualized. IMPRESSION: Cortical thinning bilaterally. No hydronephrosis is detected. Dictated by: Dictated on workstation # [id number]
== END ==
LOC: RAD FS 11:42
PROVIDERS: ATTEND Internal Medicine Nephrology
DX: N18.30 Chronic kidney disease, stage 3 unspecified (principal)
CPT/HCPCS: 76770

== ENCOUNTER → 2020-12-12 | Outpatient (CLI) | payer MEDICARE, OTHER ==
[2020-12-12 09:01] LABS: ALBUMIN 4.5 GM/DL (3.2-4.5); BILIRUBIN,TOTAL 0.3 MG/DL (0.1-1.0); CALCIUM 9.7 MG/DL (8.5-10.1); CREATININE SERUM 1.72 MG/DL (0.60-1.30); MAGNESIUM 1.8 MG/DL (1.6-2.4); POTASSIUM 4.8 MMOL/L (3.6-5.0); TOTAL PROTEIN 6.3 GM/DL (6.4-8.2)
== END ==
LOC: LAB FS 07:56
PROVIDERS: ATTEND Nurse Practitioner Family
DX: E86.0 Dehydration (principal)
CPT/HCPCS: 80053; 83735

== ENCOUNTER → 2020-12-26 | Outpatient (CLI) | payer MEDICARE, OTHER | LOC: IHC 17:00 | PROVIDERS: ATTEND Nurse Practitioner Family | DX: R53.82 Chronic fatigue, unspecified (principal); R52 Pain, unspecified; Z20.822 Contact with and (suspected) exposure to COVID-19 | CPT/HCPCS: 87636 ==

== ENCOUNTER → 2021-01-07 | Outpatient (CLI) | payer MEDICARE, OTHER ==
[~2021-01-07] MED LIST changes: +POTA-164 PO; -POTA10TA14 PO
--- NOTE | 2021-01-07 15:41 | Diagnostic Imaging Report ---
EXAMINATION: CT chest without contrast. TECHNIQUE: Multiple contiguous axial images were obtained through the chest without the use of intravenous contrast. All CT scans use one or more of the following dose optimizing techniques: automated exposure control, MA and/or KvP adjustment based on patient size and exam type or iterative reconstruction. HISTORY: Chest pain COMPARISON: None available. FINDINGS: There is no edema or pneumonia. No pleural effusion. No pneumothorax. No suspicious nodules. Broncholiths are present in the posterior basilar segmental bronchi in the right lower lobe. There is no axillary or supraclavicular lymphadenopathy. There is no mediastinal lymphadenopathy. Port catheter is present. Heart size is normal. There are no coronary artery calcifications. No pericardial effusion. Aorta is normal in caliber. Limited views of the upper abdomen show changes of cholecystectomy. There are no suspicious osseus lesions. IMPRESSION: 1. No acute abnormality in the chest. No etiology for chest pain is seen. Dictated by: Dictated on workstation # [id number]
== END ==
LOC: RAD FS 13:27
PROVIDERS: ATTEND Internal Medicine Hematology & Oncology
DX: C90.00 Multiple myeloma not having achieved remission (principal)
CPT/HCPCS: 71250

== ENCOUNTER → 2021-02-10 | Outpatient (CLI) | payer MEDICARE, OTHER ==
[2021-02-11 11:15] LABS: BILIRUBIN,URINE NEGATIVE (NEGATIVE); CLARITY,URINE SLT CLOUDY; COLOR,URINE YELLOW; GLUCOSE, URINE (UA) NEGATIVE (NEGATIVE); KETONES,URINE NEGATIVE (NEGATIVE); LEUKOCYTE ESTERASE ,URINE TRACE (NEGATIVE); NITRITE,URINE NEGATIVE (NEGATIVE); PROTEIN,URINE NEGATIVE (NEGATIVE)
[2021-02-11 11:16] LABS: BACTERIA,URINE TRACE /HPF; WBC,URINE 0-2 /HPF
== END ==
LOC: IHC 16:43
PROVIDERS: ATTEND Nurse Practitioner Family
DX: N18.4 Chronic kidney disease, stage 4 (severe) (principal); Z87.440 Personal history of urinary (tract) infections
CPT/HCPCS: 81000; 87088

== ENCOUNTER 2021-02-15 12:35 | Emergency (ER) | payer MEDICARE, OTHER ==
[~2021-02-15] VITALS: Ht 154.9 cm; Wt 56.4 kg
[2021-02-15 12:53] VITALS: BP 145/76
[2021-02-15] MEDS ORDERED: PROMETHAZINE INJ 25 MG/ML (PHENERGAN) AMP IVP STA ×2 (13:22→14:10)
[2021-02-15] MEDS ORDERED: morphine INJ 10 MG/ML 1ML (SYR OR VIAL) IVP STA ×2 (13:22→14:10)
[2021-02-15] MEDS ORDERED: NS IV 1000 ML 1,000 ML IV STA (13:22)
--- NOTE | 2021-02-15 13:30 | ED GI ---
General Chief Complaint: Abdominal/GI Problems Stated Complaint: VOMITING Nursing Triage Note: Patient presents to the ED with c/o nausea and vomiting. She reports that she hasn't been able to keep food or fluids down since Wednesday02/12/21. Source of Information: Patient, Old Records History of Present Illness Date Seen by Provider: Feb 15, 2021 Time Seen by Provider: 12:53 Initial Comments 70-year-old female presenting with recurrent problem of nausea and vomiting. She states that this episode started on the evening of February 12. She also takes chronic high-dose narcotic pain medication which she has not been able to keep down. She gets chemotherapy every Wednesday. 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 She did have a urinalysis from 10 February that did not show infection. She is having a headache as well as some light sensitivity and abdominal wall soreness. In the past this is been a recurring issue and at times is related to a UTI. Other times they can be related back to her chemotherapy. She had been taking Phenergan suppositories at home which was helping with the nausea but then it also put her to sleep and by the time she woke up and was able to drink again the Phenergan had worn off and she started vomiting again. She denies having any fever, cough, chest pain, diarrhea, pain with urination, neck pain, change in vision, new numbness or weakness in her arms or legs. Timing/Duration: 3-4 Days Associated Symptoms: No Back Pain, No Chest Pain, No Diaphoresis; Fever/Chills (Chronic chills but no fever), Fatigue, Headache; No Heartburn; Nausea/Vomiting; No Rash, No Shortness of Air, No Swelling/Mass in Abdomen, No Syncope; Weakness (Generalized) Allergies and Home Medications Allergies Coded Allergies: Sulfa (Sulfonamide Antibiotics) (Verified Allergy, Unknown, hives, 05/24/18) latex (Verified Allergy, Unknown, anaphylaxis, 05/24/18) vancomycin (Verified Allergy, Unknown, hives, 05/24/18) Patient Home Medication List Home Medication List Reviewed: Yes ALPRAZolam (Xanax Tablet) 0.25 Mg Tablet, 0.25 MG PO TID PRN for ANXIETY, (Reported) Entered as Reported by: ANA LUISA NOVA on 03/01/19 1043 Acyclovir (Acyclovir) 400 Mg Tablet, 400 MG PO BID, (Reported) Entered as Reported by: MAI SEGOVIA on 05/24/18 0932 Amlodipine Besylate (Amlodipine Besylate) 5 Mg Tablet, 5 MG PO DAILY, (Reported) Entered as Reported by: MAI SEGOVIA on 05/24/18 0932 Apixaban (Eliquis) 5 Mg Tablet, 5 MG PO BID, (Reported) Entered as Reported by: ANA LUISA NOVA on 03/01/19 1220 Calcium Carbonate/Vitamin D3 (Os-Alan 500+D3 Caplet) 1 Each Tablet, 1 TAB PO BID, (Reported) Entered as Reported by: ANA LUISA NOVA on 03/01/19 1043 Cholecalciferol (Vitamin D3) (Vitamin D3) 2,000 Unit Tablet, 2,000 UNIT PO BID, (Reported) Entered as Reported by: ANA LUISA NOVA on 03/01/19 1043 Cyanocobalamin (Cyanocobalamin Injection) 1,000 Mcg/Ml Inj, 1,000 MCG IM UD, (Reported) Entered as Reported by: ANA LUISA NOVA on 03/01/19 1044 Diphenhydramine HCl (Benadryl) 25 Mg Capsule, 100 MG PO HS PRN for ITCHING, (Reported) Entered as Reported by: ANA LUISA NOVA on 03/01/19 1043 Docusate Sodium (Colace) 100 Mg Capsule, 200 MG PO HS PRN for CONSTIPATION-1ST LINE, (Reported) Entered as Reported by: ANA LUISA NOVA on 03/01/19 1043 Fexofenadine HCl (Emelia Allergy) 60 Mg Tablet, 60 MG PO BID PRN for ALLERGIES, (Reported) Entered as Reported by: ANA LUISA NOVA on 03/01/19 1043 Gabapentin (Gabapentin) 600 Mg Tablet, 600 MG PO HS, (Reported) Entered as Reported by: MAI SEGOVIA on 05/24/18 0932 Granisetron (Sancuso) 1 Each Patch.tdwk, 1 PATCH TD Romero, (Reported) Entered as Reported by: MAI SEGOVIA on 05/24/18 0932 Loperamide HCl (Imodium A-D) 2 Mg Tablet, PO UD PRN for DIARRHEA, (Reported) Entered as Reported by: ANA LUISA NOVA on 03/01/19 1043 Losartan Potassium (Losartan Potassium) 100 Mg Tablet, 50 MG PO DAILY, (Reported) Entered as Reported by: ANA LUISA NOVA on 03/01/19 1236 Morphine Sulfate (Ms Contin) 30 Mg Tablet.er, 30 MG PO BID, (Reported) Entered as Reported by: ANA LUISA NOVA on 03/01/19 1043 Morphine Sulfate (Morphine Sulfate IR Tablet) 15 Mg Tablet, 15 MG PO TID PRN for PAIN-SEVERE (8-10), (Reported) Entered as Reported by: ANA LUISA NOVA on 03/01/19 1043 Naloxegol Oxalate (Movantik) 25 Mg Tablet, 25 MG PO SuMoWeThFrSa, (Reported) Entered as Reported by: MAI SEGOVIA on 05/24/18 0932 Ondansetron (Ondansetron Odt) 8 Mg Tab.rapdis, 8 MG PO TID PRN for NAUSEA/VOMITING-1ST LINE, (Reported) Entered as Reported by: ANA LUISA NOVA on 03/01/19 1044 Ondansetron (Ondansetron Odt) 8 Mg Tab.rapdis, 8 MG PO Q8H PRN for NAUSEA/VOMITING Prescribed by: AINSLEY ROYAL on 08/21/20 1233 Pantoprazole Sodium (Pantoprazole Sodium) 40 Mg Tablet.dr, 40 MG PO DAILY, (Reported) Entered as Reported by: MAI SEGOVIA on 05/24/18 0932 Phenazopyridine HCl (Azo Urinary Pain Relief) 97.5 Mg Tablet, 97.5 MG PO DAILY PRN for URINARY PAIN, (Reported) Entered as Reported by: ANA LUISA NOVA on 03/01/19 1043 Polyethylene Glycol 3350 (Miralax) 17 Gm Powd.pack, 17 GM PO Q2H PRN for CONSTIPATION-2ND LINE, (Reported) Entered as Reported by: ANA LUISA NOVA on 03/01/19 1043 Potassium Chloride (Klor-Con M10) 10 Meq Tab.er.prt, 10 MEQ PO BID, (Reported) Entered as Reported by: MAI SEGOVIA on 05/24/18 0932 Potassium Phosphate,Monobasic (K-Phos Original) 500 Mg Tablet.alba, 1,000 MG PO BID, (Reported) Entered as Reported by: MAI SEGOVIA on 05/24/18 0932 Promethazine HCl (Promethazine Suppository) 25 Mg Supp.rect, 25 MG RC Q6H PRN for NAUSEA/VOMITING-2ND LINE Prescribed by: NGOC CASTRO on 07/20/20 1240 Rosuvastatin Calcium (Crestor) 10 Mg Tablet, 10 MG PO DAILY, (Reported) Entered as Reported by: ANA LUISA NOVA on 03/01/19 1012 Sennosides (Senokot) 8.6 Mg Tablet, 8.6 MG PO DAILY PRN for CONSTIPATION-5TH LINE, (Reported) Entered as Reported by: ANA LUISA NOVA on 03/01/19 1043 Temazepam (Temazepam) 15 Mg Capsule, 15 MG PO HS PRN for SLEEP, (Reported) Entered as Reported by: ANA LUISA NOVA on 03/01/19 1043 Thyroid,Pork (Linden Thyroid) 30 Mg Tablet, 30 MG PO DAILY, (Reported) Entered as Reported by: ANA LUISA NOVA on 03/01/19 1212 Tramadol HCl (Tramadol HCl) 50 Mg Tablet, 50 MG PO TID PRN for PAIN-MODERATE (5- 7), (Reported) Entered as Reported by: ANA LUISA NOVA on 03/01/19 1043 [Valcade] , INJ WEDNESDAY, (Reported) Entered as Reported by: ANA LUISA NOVA on 03/01/19 1043 Review of Systems Review of Systems Constitutional: chills; No fever; malaise EENTM: No Double Vision, No Ear Drainage, No Ear Pain, No Mouth Pain, No Mouth Swelling, No Nose Congestion, No Nose Pain Respiratory: Denies Cough, Denies Shortness of Air Cardiovascular: Denies Chest Pain Gastrointestinal: Denies Abdomen Distended, Denies Diarrhea; Nausea, Vomiting Genitourinary: Denies Burning, Denies Frequency Musculoskeletal: No back pain Skin: No rash Psychiatric/Neurological: Headache Past [id number]-Pxuxft Hx Patient Social History Tobacco Use?: No Use of E-Cig and/or Vaping dev: No Substance use?: No Alcohol Use?: No Pt feels they are or have been: No Immunizations Up To Date First/Initial COVID19 Vaccinat: 04/2020 Second COVID19 Vaccination Luis: 05/2020 COVID19 Vaccine Clinical Data Analyst: Moderna Seasonal Allergies Seasonal Allergies: No Past Medical History Surgery/Hospitalization HX: Colon resection, Stem Cell transplant, GB, Hyst, Appy, Multiple myeloma/Acute Leukemia Hx on active treatment of Velcade. Pt has Complex Regional Pain Syndrome Surgeries: Yes (colon resection; stem cell transplant) Appendectomy, Bowel Surgery, Gallbladder, Hysterectomy Respiratory: No Cardiac: Yes Hypertension Neurological: No Genitourinary: Yes Bladder Infection Gastrointestinal: No Musculoskeletal: No Endocrine: No HEENT: No Cancer: Yes (blood cancer; light chain proteins, MULTIPLE MYELOMA) Psychosocial: No Integumentary: No Blood Disorders: Yes Family Medical History Cancer, Stroke Physical Exam Vital Signs Vital Signs - First Documented 02/15/21 12:53 Temp 36.7 Pulse 90 Resp 19 B/P (MAP) 145/76 (99) Pulse Ox 98 O2 Delivery Room Air Capillary Refill : Less Than 3 Seconds Height/Weight/BMI Height: 5'1.00" Weight: 127lbs. oz. 57.570835bg; 23.00 BMI Method:Stated General Appearance: no apparent distress, other (Chronically ill patient) HEENT: PERRL/EOMI, pharynx normal Neck: non-tender, full range of motion, supple, normal inspection Respiratory: chest non-tender, lungs clear, normal breath sounds, no respiratory distress, no accessory muscle use Cardiovascular: normal peripheral pulses, regular rate, rhythm Gastrointestinal: normal bowel sounds, soft, no pulsatile mass; No distended, No guarding, No rebound; tenderness (Mild abdominal wall tenderness) Rectal: deferred Extremities: normal range of motion, non-tender, normal capillary refill Back: no CVA tenderness, no vertebral tenderness Neurologic/Psychiatric: 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 II-XII nml as tested, alert, oriented x 3 Skin: normal color, warm/dry Progress/Results/Core Measures Results/Orders Lab Results Laboratory Tests Test 02/15/21 13:25 Range/Units White Blood Count 6.0 4.3-11.0 10^3/uL Red Blood Count 3.47 L 3.80-5.11 10^6/uL Hemoglobin 11.4 L 11.5-16.0 g/dL Hematocrit 34 L 35-52 % Mean Corpuscular Volume 98 80-99 fL Mean Corpuscular Hemoglobin 33 25-34 pg Mean Corpuscular Hemoglobin Concent 33 32-36 g/dL Red Cell Distribution Width 13.0 10.0-14.5 % Platelet Count 106 L 130-400 10^3/uL Mean Platelet Volume 10.7 9.0-12.2 fL Immature Granulocyte % (Auto) 0 % Neutrophils (%) (Auto) 76 H 42-75 % Lymphocytes (%) (Auto) 15 12-44 % Monocytes (%) (Auto) 9 0-12 % Eosinophils (%) (Auto) 0 0-10 % Basophils (%) (Auto) 0 0-10 % Neutrophils # (Auto) 4.6 1.8-7.8 X 10^3 Lymphocytes # (Auto) 0.9 L 1.0-4.0 X 10^3 Monocytes # (Auto) 0.5 0.0-1.0 X 10^3 Eosinophils # (Auto) 0.0 0.0-0.3 10^3/uL Basophils # (Auto) 0.0 0.0-0.1 10^3/uL Immature Granulocyte # (Auto) 0.0 0.0-0.1 10^3/uL Percent Immature Platelet Fraction 3.4 0.0-7.6 % Sodium Level 137 135-145 MMOL/L Potassium Level 3.6 3.6-5.0 MMOL/L Chloride Level 105 98-107 MMOL/L Carbon Dioxide Level 23 21-32 MMOL/L Anion Gap 9 5-14 MMOL/L Blood Urea Nitrogen 16 7-18 MG/DL Creatinine 1.51 H 0.60-1.30 MG/DL Estimat Glomerular Filtration Rate 34 BUN/Creatinine Ratio 11 Glucose Level 101 70-105 MG/DL Calcium Level 9.4 8.5-10.1 MG/DL Corrected Calcium 9.3 8.5-10.1 MG/DL Total Bilirubin 0.6 0.1-1.0 MG/DL Aspartate Amino Transf (AST/SGOT) 14 5-34 U/L Alanine Aminotransferase (ALT/SGPT) 8 0-55 U/L Alkaline Phosphatase 59 40-136 U/L Total Protein 6.2 L 6.4-8.2 GM/DL Albumin 4.1 3.2-4.5 GM/DL Lipase 16 8-78 U/L NGOC Montes MD Comprehensive Metabolic Panel (02/15/21 13:22) Lipase (02/15/21 13:22) Ed Iv/Invasive Line Start (02/15/21 13:22) Cbc With Automated Diff (02/15/21 13:22) Ns Iv 1000 Ml (Sodium Chloride 0.9%) (02/15/21 13:22) Promethazine Injection (Phenergan Injec (02/15/21 13:22) Morphine Injection (Morphine Injection (02/15/21 13:22) Promethazine Injection (Phenergan Injec (02/15/21 14:10) Morphine Injection (Morphine Injection (02/15/21 14:10) Diphenhydramine Injection (Benadryl Inje (02/15/21 14:10) Heparin (Central Iv Flush) (Heparin (Yamil (02/15/21 16:33) Vital Signs/I&O 02/15/21 12:53 Temp 36.7 Pulse 90 Resp 19 B/P (MAP) 145/76 (99) Pulse Ox 98 O2 Delivery Room Air Blood Pressure Mean: 99 Progress Progress Note #1: Progress Note Access her port and obtain basic labs to check her electrolytes and blood count. Try to obtain a urinalysis to look for signs of infection. Give IV fluids at 500 mL an hour. She usually tolerates Phenergan IV through her port as well as IV morphine to help try and get back on top of her pain and nausea so that she could tolerate her oral pain medications Progress Note #2: Time: 14:01 Progress Note CBC and chemistry appear stable for patient with improved renal function compared to previous testing. On recheck of the patient I reviewed her lab results with her. She was stated that her headache was slightly better but could not put a number to and that her nausea was the same. Fluids are still infusing. Give repeat dose of morphine as well as Phenergan and a low-dose of Benadryl to try and help with her headache and nausea as the liter of fluids continue to infuse since the patient will only allow the fluids to go at 500 mL//hr. Progress Note #3: Progress Note After repeat medications patient had been resting comfortably in the room. She awakens easily upon entering the room. Her IV fluids had finished infusing and she has been able to take some ice chips and p.o. without emesis. Her headache was improved to the point she felt like she can manage things at home. Counseled on follow up and return precautions. Encouraged to continue to sip fluids and take regular medicines at home Departure Impression Primary Impression: Intractable nausea and vomiting Disposition: HOME, SELF-CARE Condition: Stable Departure-Patient Inst. Decision time for Depature: 16:31 Referrals: ANA LUISA BARRAGAN APRN (PCP) Primary Care Physician Patient Instructions: Nausea and Vomiting, Adult ED Add. Discharge Instructions: Stay well hydrated and keep drinking fluids. Make sure to take your regular medicines and follow up with your regular providers for continued concerns. All discharge instructions reviewed with patient and/or family. Voiced understanding. NGOC CASTRO MD Feb 15, 2021 13:30
[2021-02-15 13:36] LABS: BASOPHILS % (AUTO) 0 % (0-10); EOSINOPHILS % (AUTO) 0 % (0-10); HEMATOCRIT 34 % (35-52); HEMOGLOBIN 11.4 g/dL (11.5-16.0); LYMPHOCYTES # (AUTO) 0.9 X 10^3 (1.0-4.0); LYMPHOCYTES % (AUTO) 15 % (12-44); MEAN CORPUSCULAR HEMOGLOBIN 33 pg (25-34); MEAN CORPUSCULAR HGB CONC 33 g/dL (32-36); MEAN CORPUSCULAR VOLUME 98 fL (80-99); MEAN PLATELET VOLUME 10.7 fL (9.0-12.2); MONOCYTES # (AUTO) 0.5 X 10^3 (0.0-1.0); MONOCYTES % (AUTO) 9 % (0-12); NEUTROPHILS # (AUTO) 4.6 X 10^3 (1.8-7.8); NEUTROPHILS % (AUTO) 76 % (42-75); PLATELET COUNT 106 10^3/uL (130-400)
[2021-02-15 13:51] LABS: POTASSIUM 3.6 MMOL/L (3.6-5.0)
[2021-02-15 13:52] LABS: ALBUMIN 4.1 GM/DL (3.2-4.5); BILIRUBIN,TOTAL 0.6 MG/DL (0.1-1.0); CALCIUM 9.4 MG/DL (8.5-10.1); CREATININE SERUM 1.51 MG/DL (0.60-1.30); TOTAL PROTEIN 6.2 GM/DL (6.4-8.2)
[2021-02-15] MEDS ORDERED: diphenhydrAMINE 50 MG/ML INJ (BENADRYL) IVP STA (14:10)
[2021-02-15] MEDS ORDERED: HEParin (CENTRAL IV FLUSH) 500 UNIT/5 ML SYR IV STA (16:33)
== END 2021-02-15 16:45 | disposition home or self-care (01) ==
LOC: EDUNIT# 12:35 → ER FS 12:38
DX: R11.2 Nausea with vomiting, unspecified (principal); I10 Essential (primary) hypertension; Z91.040 Latex allergy status; Z79.01 Long term (current) use of anticoagulants
CPT/HCPCS: 36415; 80053; 83690; 85025; 99281

== ENCOUNTER 2021-03-09 10:00 | Emergency (ER) | payer MEDICARE, OTHER ==
--- NOTE | 2021-03-09 10:04 | ED GI ---
General Chief Complaint: Abdominal/GI Problems Stated Complaint: VOMITING History of Present Illness Date Seen by Provider: Mar 09, 2021 Time Seen by Provider: 10:04 Initial Comments 70-year-old female presents with nausea and vomiting. Patient reports that for the last 2 days she has not been able to keep them down. Patient has been seen numerous times for the same thing with vomiting. Patient denies abdominal pain. Maybe some mild chills. No cough, diarrhea, sore throat, headache or other systemic complaints Allergies and Home Medications Allergies Coded Allergies: Sulfa (Sulfonamide Antibiotics) (Verified Allergy, Unknown, hives, 05/24/18) latex (Verified Allergy, Unknown, anaphylaxis, 05/24/18) vancomycin (Verified Allergy, Unknown, hives, 05/24/18) Patient Home Medication List Home Medication List Reviewed: Yes ALPRAZolam (Xanax Tablet) 0.25 Mg Tablet, 0.25 MG PO TID PRN for ANXIETY, (Reported) Entered as Reported by: ANA LUISA NOVA on 03/01/19 1043 Acyclovir (Acyclovir) 400 Mg Tablet, 400 MG PO BID, (Reported) Entered as Reported by: MAI SEGOVIA on 05/24/18 0932 Amlodipine Besylate (Amlodipine Besylate) 5 Mg Tablet, 5 MG PO DAILY, (Reported) Entered as Reported by: MAI SEGOVIA on 05/24/18 0932 Apixaban (Eliquis) 5 Mg Tablet, 5 MG PO BID, (Reported) Entered as Reported by: ANA LUISA NOVA on 03/01/19 1220 Calcium Carbonate/Vitamin D3 (Os-Alan 500+D3 Caplet) 1 Each Tablet, 1 TAB PO BID, (Reported) Entered as Reported by: ANA LUISA NOVA on 03/01/19 1043 Cholecalciferol (Vitamin D3) (Vitamin D3) 2,000 Unit Tablet, 2,000 UNIT PO BID, (Reported) Entered as Reported by: ANA LUISA NOVA on 03/01/19 1043 Cyanocobalamin (Cyanocobalamin Injection) 1,000 Mcg/Ml Inj, 1,000 MCG IM UD, (Reported) Entered as Reported by: ANA LUISA NOVA on 03/01/19 1044 Diphenhydramine HCl (Benadryl) 25 Mg Capsule, 100 MG PO HS PRN for ITCHING, (Reported) Entered as Reported by: ANA LUISA NOVA on 03/01/19 1043 Docusate Sodium (Colace) 100 Mg Capsule, 200 MG PO HS PRN for CONSTIPATION-1ST LINE, (Reported) Entered as Reported by: ANA LUISA NOVA on 03/01/19 1043 Fexofenadine HCl (Emelia Allergy) 60 Mg Tablet, 60 MG PO BID PRN for ALLERGIES, (Reported) Entered as Reported by: ANA LUISA NOVA on 03/01/19 1043 Gabapentin (Gabapentin) 600 Mg Tablet, 600 MG PO HS, (Reported) Entered as Reported by: MAI SEGOVIA on 05/24/18 0932 Granisetron (Sancuso) 1 Each Patch.tdwk, 1 PATCH TD Romero, (Reported) Entered as Reported by: MAI SEGOVIA on 05/24/18 0932 Loperamide HCl (Imodium A-D) 2 Mg Tablet, PO UD PRN for DIARRHEA, (Reported) Entered as Reported by: ANA LUISA NOVA on 03/01/19 1043 Losartan Potassium (Losartan Potassium) 100 Mg Tablet, 50 MG PO DAILY, (Reported) Entered as Reported by: ANA LUISA NOVA on 03/01/19 1236 Morphine Sulfate (Ms Contin) 30 Mg Tablet.er, 30 MG PO BID, (Reported) Entered as Reported by: ANA LUISA NOVA on 03/01/19 1043 Morphine Sulfate (Morphine Sulfate IR Tablet) 15 Mg Tablet, 15 MG PO TID PRN for PAIN-SEVERE (8-10), (Reported) Entered as Reported by: ANA LUISA NOVA on 03/01/19 1043 Naloxegol Oxalate (Movantik) 25 Mg Tablet, 25 MG PO SuMoWeThFrSa, (Reported) Entered as Reported by: MAI SEGOVIA on 05/24/18 0932 Ondansetron (Ondansetron Odt) 8 Mg Tab.rapdis, 8 MG PO TID PRN for NAUSEA/VOMITING-1ST LINE, (Reported) Entered as Reported by: ANA LUISA NOVA on 03/01/19 1044 Ondansetron (Ondansetron Odt) 8 Mg Tab.rapdis, 8 MG PO Q8H PRN for NAUSEA/VOMITING Prescribed by: AINSLEY ROYAL on 08/21/20 1233 Pantoprazole Sodium (Pantoprazole Sodium) 40 Mg Tablet.dr, 40 MG PO DAILY, (Reported) Entered as Reported by: MAI SEGOVIA on 05/24/18 0932 Phenazopyridine HCl (Azo Urinary Pain Relief) 97.5 Mg Tablet, 97.5 MG PO DAILY PRN for URINARY PAIN, (Reported) Entered as Reported by: ANA LUISA NOVA on 03/01/19 1043 Polyethylene Glycol 3350 (Miralax) 17 Gm Powd.pack, 17 GM PO Q2H PRN for CONSTIPATION-2ND LINE, (Reported) Entered as Reported by: ANA LUISA NOVA on 03/01/19 1043 Potassium Chloride (Klor-Con M10) 10 Meq Tab.er.prt, 10 MEQ PO BID, (Reported) Entered as Reported by: MAI SEGOVIA on 05/24/18 0932 Potassium Phosphate,Monobasic (K-Phos Original) 500 Mg Tablet.alba, 1,000 MG PO BID, (Reported) Entered as Reported by: MAI SEGOVIA on 05/24/18 0932 Promethazine HCl (Promethazine Suppository) 25 Mg Supp.rect, 25 MG RC Q6H PRN for NAUSEA/VOMITING-2ND LINE Prescribed by: NGOC CASTRO on 07/20/20 1240 Rosuvastatin Calcium (Crestor) 10 Mg Tablet, 10 MG PO DAILY, (Reported) Entered as Reported by: ANA LUISA NOVA on 03/01/19 1012 Sennosides (Senokot) 8.6 Mg Tablet, 8.6 MG PO DAILY PRN for CONSTIPATION-5TH LINE, (Reported) Entered as Reported by: ANA LUISA NOVA on 03/01/19 1043 Temazepam (Temazepam) 15 Mg Capsule, 15 MG PO HS PRN for SLEEP, (Reported) Entered as Reported by: ANA LUISA NOVA on 03/01/19 1043 Thyroid,Pork ([place] Thyroid) 30 Mg Tablet, 30 MG PO DAILY, (Reported) Entered as Reported by: ANA LUISA NOVA on 03/01/19 1212 Tramadol HCl (Tramadol HCl) 50 Mg Tablet, 50 MG PO TID PRN for PAIN-MODERATE (5- 7), (Reported) Entered as Reported by: ANA LUISA NOVA on 03/01/19 1043 [Valcade] , INJ WEDNESDAY, (Reported) Entered as Reported by: ANA LUISA NOVA on 03/01/19 1043 Review of Systems Review of Systems Constitutional: No chills, No fever Respiratory: Denies Cough, Denies Shortness of Air Cardiovascular: Denies Chest Pain, Denies Edema Gastrointestinal: Denies Abdominal Pain; Nausea, Vomiting Genitourinary: No Symptoms Reported Musculoskeletal: no symptoms reported Skin: no symptoms reported Psychiatric/Neurological: No Symptoms Reported Endocrine: No Symptoms Reported Hematologic/Lymphatic: No Symptoms Reported Past Zolbhur-Ulukem-Dhnicg Hx Immunizations Up To Date First/Initial COVID19 Vaccinat: 04/2020 Second COVID19 Vaccination Luis: 05/2020 Seasonal Allergies Seasonal Allergies: No Past Medical History Surgery/Hospitalization HX: Colon resection, Stem Cell transplant, GB, Hyst, Appy, Multiple myeloma/Acute Leukemia Hx on active treatment of Velcade. Pt has Complex Regional Pain Syndrome Surgeries: Yes (colon resection; stem cell transplant) Appendectomy, Bowel Surgery, Gallbladder, Hysterectomy Respiratory: No Cardiac: Yes Hypertension Neurological: No Genitourinary: Yes Bladder Infection Gastrointestinal: No Musculoskeletal: No Endocrine: No HEENT: No Cancer: Yes (blood cancer; light chain proteins, MULTIPLE MYELOMA) Psychosocial: No Integumentary: No Blood Disorders: Yes Family Medical History Cancer, Stroke Physical Exam Vital Signs Vital Signs - First Documented 03/09/21 10:07 Temp 35.9 Pulse 84 Resp 16 B/P (MAP) 136/79 (98) Pulse Ox 99 O2 Delivery Room Air Capillary Refill : Height/Weight/BMI Height: 5'1.00" Weight: 127lbs. oz. [id number]; 23.00 BMI Method:Stated General Appearance: WD/WN, no apparent distress HEENT: PERRL/EOMI, normal ENT inspection, TMs normal Respiratory: lungs clear, normal breath sounds Cardiovascular: normal peripheral pulses, regular rate, rhythm Gastrointestinal: non tender, soft Extremities: normal range of motion Neurologic/Psychiatric: alert, normal mood/affect, oriented x 3 Skin: normal color, warm/dry Progress/Results/Core Measures Results/Orders Lab Results Laboratory Tests Test 03/09/21 10:20 Range/Units White Blood Count 5.3 4.3-11.0 10^3/uL Red Blood Count 3.21 L 3.80-5.11 10^6/uL Hemoglobin 10.7 L 11.5-16.0 g/dL Hematocrit 33 L 35-52 % Mean Corpuscular Volume 102 H 80-99 fL Mean Corpuscular Hemoglobin 33 25-34 pg Mean Corpuscular Hemoglobin Concent 33 32-36 g/dL Red Cell Distribution Width 13.0 10.0-14.5 % Platelet Count 124 L 130-400 10^3/uL Mean Platelet Volume 10.6 9.0-12.2 fL Immature Granulocyte % (Auto) 0 % Neutrophils (%) (Auto) 81 H 42-75 % Lymphocytes (%) (Auto) 13 12-44 % Monocytes (%) (Auto) 5 0-12 % Eosinophils (%) (Auto) 0 0-10 % Basophils (%) (Auto) 0 0-10 % Neutrophils # (Auto) 4.3 1.8-7.8 X 10^3 Lymphocytes # (Auto) 0.7 L 1.0-4.0 X 10^3 Monocytes # (Auto) 0.3 0.0-1.0 X 10^3 Eosinophils # (Auto) 0.0 0.0-0.3 10^3/uL Basophils # (Auto) 0.0 0.0-0.1 10^3/uL Immature Granulocyte # (Auto) 0.0 0.0-0.1 10^3/uL Percent Immature Platelet Fraction 2.5 0.0-7.6 % Sodium Level 138 135-145 MMOL/L Potassium Level 3.3 L 3.6-5.0 MMOL/L Chloride Level 108 H 98-107 MMOL/L Carbon Dioxide Level 20 L 21-32 MMOL/L Anion Gap 10 5-14 MMOL/L Blood Urea Nitrogen 18 7-18 MG/DL Creatinine 1.26 0.60-1.30 MG/DL Estimat Glomerular Filtration Rate 47 BUN/Creatinine Ratio 14 Glucose Level 118 H 70-105 MG/DL Calcium Level 8.2 L 8.5-10.1 MG/DL Corrected Calcium 8.4 L 8.5-10.1 MG/DL Total Bilirubin 0.5 0.1-1.0 MG/DL Aspartate Amino Transf (AST/SGOT) 14 5-34 U/L Alanine Aminotransferase (ALT/SGPT) 11 0-55 U/L Alkaline Phosphatase 57 40-136 U/L C-Reactive Protein < 0.30 <0.50 MG/DL Total Protein 5.8 L 6.4-8.2 GM/DL Albumin 3.8 3.2-4.5 GM/DL Lipase 18 8-78 U/L My Orders Orders - ANA FERNANDEZ DO Cbc With Automated Diff (03/09/21 10:12) Comprehensive Metabolic Panel (03/09/21 10:12) Lipase (03/09/21 10:12) Crp Fs (03/09/21 10:12) Ondansetron Injection (Zofran Injectio (03/09/21 10:15) Lactated Ringers (Lr 1000 Ml Iv Solution (03/09/21 10:12) Ed Iv/Invasive Line Start (03/09/21 10:12) Diphenhydramine Injection (Benadryl Inje (03/09/21 10:12) Famotidine Injection (Pepcid Injection) (03/09/21 10:12) Medications Given in ED Current Medications Medications Dose Ordered Sig/Eligio Route Start Time Stop Time Status Last Admin Dose Admin Ondansetron HCl 4 mg ONCE ONCE IVP 03/09/21 10:15 03/09/21 10:16 DC 03/09/21 10:22 4 MG Vital Signs/I&O 03/09/21 10:07 Temp 35.9 Pulse 84 Resp 16 B/P (MAP) 136/79 (98) Pulse Ox 99 O2 Delivery Room Air Progress Progress Note : Progress Note Patient with no episodes of vomiting while in the ER. Patient's lab do not show any significant acute changes. I will prescribe her Zofran that she could use addition to her Phenergan. I recommend a clear liquid diet for the next 24 hours. She can follow-up with her primary care provider next week if symptoms or not improving. Patient has chronic nausea vomiting. Departure Impression Primary Impression: Nausea and vomiting Qualified Codes: R11.2 - Nausea with vomiting, unspecified Disposition: 01 HOME, SELF-CARE Condition: Stable Departure-Patient Inst. Referrals: ANA LUISA BARRAGAN APRN (PCP) Primary Care Physician [facility] (Family) Primary Care Physician Patient Instructions: CLEAR LIQUID DIET ADULT/CHILD, Dealing With Nausea and Vomiting From the Drugs You Take, Home Treatments for Nausea and Vomiting When You Have Cancer, Nausea and Vomiting, Adult ED Add. Discharge Instructions: Follow-up with your primary care provider in the next couple days if symptoms have not resolved or not improving Clear liquid diet for the next 24-hour All discharge instructions reviewed with patient and/or family. Voiced understanding. Scripts Ondansetron (Ondansetron Odt) 4 Mg Tab.rapdis 4 MG PO Q6H PRN for NAUSEA/VOMITING, #30 TAB 0 Refills Prov: ANA FERNANDEZ DO 03/09/21 ANA FERNANDEZ DO Mar 09, 2021 10:04
[2021-03-09] MEDS ORDERED: LACTATED RINGERS 1,000 ML IV STA (10:12)
[2021-03-09] MEDS ORDERED: diphenhydrAMINE 50 MG/ML INJ (BENADRYL) IV STA (10:12)
[2021-03-09] MEDS ORDERED: FAMOTIDINE 20MG/2ML IV (PEPCID) IV STA (10:12)
[2021-03-09] MEDS ORDERED: ONDANSETRON 4 MG/2 ML (SDV) Z0FRAN IVP ONE (10:15)
[2021-03-09 10:25] LABS: BASOPHILS % (AUTO) 0 % (0-10); EOSINOPHILS % (AUTO) 0 % (0-10); HEMATOCRIT 33 % (35-52); HEMOGLOBIN 10.7 g/dL (11.5-16.0); LYMPHOCYTES # (AUTO) 0.7 X 10^3 (1.0-4.0); LYMPHOCYTES % (AUTO) 13 % (12-44); MEAN CORPUSCULAR HEMOGLOBIN 33 pg (25-34); MEAN CORPUSCULAR HGB CONC 33 g/dL (32-36); MEAN CORPUSCULAR VOLUME 102 fL (80-99); MEAN PLATELET VOLUME 10.6 fL (9.0-12.2); MONOCYTES # (AUTO) 0.3 X 10^3 (0.0-1.0); MONOCYTES % (AUTO) 5 % (0-12); NEUTROPHILS # (AUTO) 4.3 X 10^3 (1.8-7.8); NEUTROPHILS % (AUTO) 81 % (42-75); PLATELET COUNT 124 10^3/uL (130-400); WHITE BLOOD COUNT 5.3 10^3/uL (4.3-11.0)
[2021-03-09 10:42] LABS: BILIRUBIN,TOTAL 0.5 MG/DL (0.1-1.0); BUN/CREATININE RATIO 14; CALCIUM 8.2 MG/DL (8.5-10.1); CARBON DIOXIDE 20 MMOL/L (21-32); CHLORIDE 108 MMOL/L (98-107); CREATININE SERUM 1.26 MG/DL (0.60-1.30); GFR ESTIMATED 47; GLUCOSE 118 MG/DL (70-105); POTASSIUM 3.3 MMOL/L (3.6-5.0); SODIUM 138 MMOL/L (135-145)
[2021-03-09 10:43] LABS: ALANINE AMINOTRANSFERASE 11 U/L (0-55); ALBUMIN 3.8 GM/DL (3.2-4.5); ALKALINE PHOSPHATASE 57 U/L (40-136); LIPASE 18 U/L (8-78); TOTAL PROTEIN 5.8 GM/DL (6.4-8.2)
[2021-03-09] MEDS ORDERED: ONDA4TAB11 PO (11:31)
[2021-03-09 11:40] VITALS: BP 143/80
== END 2021-03-09 11:46 | disposition home or self-care (01) ==
LOC: EDUNIT# 10:00 → ER FS 10:01
DX: R11.2 Nausea with vomiting, unspecified (principal); I10 Essential (primary) hypertension; Z91.040 Latex allergy status; Z79.01 Long term (current) use of anticoagulants
CPT/HCPCS: 36415; 80053; 83690; 85025; 86141

== ENCOUNTER 2021-07-02 09:59 | Emergency (ER) | payer MEDICARE, OTHER ==
[~2021-07-02] VITALS: Ht 154.9 cm; Wt 52.2 kg
[2021-07-02] MEDS ORDERED: morphine INJ 10 MG/ML 1ML (SYR OR VIAL) IVP STA (10:09)
--- NOTE | 2021-07-02 10:09 | ED GI ---
General Chief Complaint: Abdominal/GI Problems Stated Complaint: N/V Source of Information: Patient, EMS Exam Limitations: No Limitations History of Present Illness Date Seen by Provider: July 02, 2021 Time Seen by Provider: 10:00 Initial Comments 70-year-old female with past medical history of multiple myeloma on weekly Velcade with chronic nausea and vomiting that is well-known to this emergency department coming in due to nausea with nonbloody nonbilious vomiting. This started on Wednesday night. She did have chemo on Wednesday where they gave her medications for nausea and IV fluids. She says she has been unable to keep anything down since then. She says the last time she was able to keep her pain medication down was Wednesday. She says she takes 30 mg of extended release morphine twice a day and 15 mg of instant release as needed. She says when she is unable to keep this down she has a headache because she is lacking the opioids. She is otherwise denying any severe abdominal pain, chest pain, shortness of breath, fever, dysuria, polyuria or urinary frequency, diarrhea, constipation, or any other concerns. Allergies and Home Medications Allergies Coded Allergies: Sulfa (Sulfonamide Antibiotics) (Verified Allergy, Unknown, hives, 05/24/18) latex (Verified Allergy, Unknown, anaphylaxis, 05/24/18) vancomycin (Verified Allergy, Unknown, hives, 05/24/18) Patient Home Medication List Home Medication List Reviewed: Yes ALPRAZolam (Xanax Tablet) 0.25 Mg Tablet, 0.25 MG PO TID PRN for ANXIETY, (Reported) Entered as Reported by: ANA LUISA NOVA on 03/01/19 1043 Acyclovir (Acyclovir) 400 Mg Tablet, 400 MG PO BID, (Reported) Entered as Reported by: MAI SEGOVIA on 05/24/18 0932 Amlodipine Besylate (Amlodipine Besylate) 5 Mg Tablet, 5 MG PO DAILY, (Reported) Entered as Reported by: MAI SEGOVIA on 05/24/18 0932 Apixaban (Eliquis) 5 Mg Tablet, 5 MG PO BID, (Reported) Entered as Reported by: ANA LUISA NOVA on 03/01/19 1220 Calcium Carbonate/Vitamin D3 (Os-Alan 500+D3 Caplet) 1 Each Tablet, 1 TAB PO BID, (Reported) Entered as Reported by: ANA LUISA NOVA on 03/01/19 1043 Cholecalciferol (Vitamin D3) (Vitamin D3) 2,000 Unit Tablet, 2,000 UNIT PO BID, (Reported) Entered as Reported by: ANA LUISA NOVA on 03/01/19 1043 Cyanocobalamin (Cyanocobalamin Injection) 1,000 Mcg/Ml Inj, 1,000 MCG IM UD, (Reported) Entered as Reported by: ANA LUISA NOVA on 03/01/19 1044 Diphenhydramine HCl (Benadryl) 25 Mg Capsule, 100 MG PO HS PRN for ITCHING, (Reported) Entered as Reported by: ANA LUISA NOVA on 03/01/19 1043 Docusate Sodium (Colace) 100 Mg Capsule, 200 MG PO HS PRN for CONSTIPATION-1ST LINE, (Reported) Entered as Reported by: ANA LUISA NOVA on 03/01/19 1043 Fexofenadine HCl (Emelia Allergy) 60 Mg Tablet, 60 MG PO BID PRN for ALLERGIES, (Reported) Entered as Reported by: ANA LUISA NOVA on 03/01/19 1043 Gabapentin (Gabapentin) 600 Mg Tablet, 600 MG PO HS, (Reported) Entered as Reported by: MAI SEGOVIA on 05/24/18 0932 Granisetron (Sancuso) 1 Each Patch.tdwk, 1 PATCH TD Romero, (Reported) Entered as Reported by: MAI SEGOVIA on 05/24/18 0932 Loperamide HCl (Imodium A-D) 2 Mg Tablet, PO UD PRN for DIARRHEA, (Reported) Entered as Reported by: ANA LUISA NOVA on 03/01/19 1043 Losartan Potassium (Losartan Potassium) 100 Mg Tablet, 50 MG PO DAILY, (Reported) Entered as Reported by: ANA LUISA NOVA on 03/01/19 1236 Morphine Sulfate (Ms Contin) 30 Mg Tablet.er, 30 MG PO BID, (Reported) Entered as Reported by: ANA LUISA NOVA on 03/01/19 1043 Morphine Sulfate (Morphine Sulfate IR Tablet) 15 Mg Tablet, 15 MG PO TID PRN for PAIN-SEVERE (8-10), (Reported) Entered as Reported by: ANA LUISA NOVA on 03/01/19 1043 Naloxegol Oxalate (Movantik) 25 Mg Tablet, 25 MG PO SuMoWeThFrSa, (Reported) Entered as Reported by: MAI SEGOVIA on 05/24/18 0932 Ondansetron (Ondansetron Odt) 8 Mg Tab.rapdis, 8 MG PO TID PRN for NAUSEA/VOMITING-1ST LINE, (Reported) Entered as Reported by: ANA LUISA NOVA on 03/01/19 1044 Ondansetron (Ondansetron Odt) 8 Mg Tab.rapdis, 8 MG PO Q8H PRN for NAUSEA/VOMITING Prescribed by: AINSLEY ROYAL on 08/21/20 1233 Ondansetron (Ondansetron Odt) 4 Mg Tab.rapdis, 4 MG PO Q6H PRN for NAUSEA/VOMITING Prescribed by: ANA FERNANDEZ on 03/09/21 1131 Pantoprazole Sodium (Pantoprazole Sodium) 40 Mg Tablet.dr, 40 MG PO DAILY, (Reported) Entered as Reported by: MAI SEGOVIA on 05/24/18 0932 Phenazopyridine HCl (Azo Urinary Pain Relief) 97.5 Mg Tablet, 97.5 MG PO DAILY PRN for URINARY PAIN, (Reported) Entered as Reported by: ANA LUISA NOVA on 03/01/19 1043 Polyethylene Glycol 3350 (Miralax) 17 Gm Powd.pack, 17 GM PO Q2H PRN for C ONSTIPATION-2ND LINE, (Reported) Entered as Reported by: ANA LUISA NOVA on 03/01/19 1043 Potassium Chloride (Klor-Con M10) 10 Meq Tab.er.prt, 10 MEQ PO BID, (Reported) Entered as Reported by: MAI SEGOVIA on 05/24/18 0932 Potassium Phosphate,Monobasic (K-Phos Original) 500 Mg Tablet.alba, 1,000 MG PO BID, (Reported) Entered as Reported by: MAI SEGOVIA on 05/24/18 0932 Promethazine HCl (Promethazine Suppository) 25 Mg Supp.rect, 25 MG RC Q6H PRN for NAUSEA/VOMITING-2ND LINE Prescribed by: NGOC CASTRO on 07/20/20 1240 Rosuvastatin Calcium (Crestor) 10 Mg Tablet, 10 MG PO DAILY, (Reported) Entered as Reported by: ANA LUISA NOVA on 03/01/19 1012 Sennosides (Senokot) 8.6 Mg Tablet, 8.6 MG PO DAILY PRN for CONSTIPATION-5TH LINE, (Reported) Entered as Reported by: ANA LUISA NOVA on 03/01/19 1043 Temazepam (Temazepam) 15 Mg Capsule, 15 MG PO HS PRN for SLEEP, (Reported) Entered as Reported by: ANA LUISA NOVA on 03/01/19 1043 Thyroid,Pork ([place] Thyroid) 30 Mg Tablet, 30 MG PO DAILY, (Reported) Entered as Reported by: ANA LUISA NOVA on 03/01/19 1212 Tramadol HCl (Tramadol HCl) 50 Mg Tablet, 50 MG PO TID PRN for PAIN-MODERATE (5- 7), (Reported) Entered as Reported by: ANA LUISA NOVA on 03/01/19 1043 [Valcade] , INJ WEDNESDAY, (Reported) Entered as Reported by: ANA LUISA NOVA on 03/01/19 1043 Review of Systems Review of Systems Constitutional: No chills, No fever EENTM: No Blurred Vision Respiratory: Denies Cough Cardiovascular: Denies Chest Pain Gastrointestinal: Denies Abdominal Pain; Nausea, Vomiting Genitourinary: No Symptoms Reported Musculoskeletal: no symptoms reported Skin: no symptoms reported Psychiatric/Neurological: No Symptoms Reported Endocrine: No Symptoms Reported Hematologic/Lymphatic: No Symptoms Reported All Other Systems Reviewed Negative Unless Noted: Yes Past Lulrywg-Zrwbij-Mlfcsr Hx Patient Social History Tobacco Use?: No Substance use?: No Alcohol Use?: No Immunizations Up To Date First/Initial COVID19 Vaccinat: 04/2020 Second COVID19 Vaccination Luis: 05/2020 Third COVID19 Vaccination Date: yes Seasonal Allergies Seasonal Allergies: No Past Medical History Surgery/Hospitalization HX: Colon resection, Stem Cell transplant, GB, Hyst, Appy, Multiple myeloma/Acute Leukemia Hx on active treatment of Velcade. Pt has Complex Regional Pain Syndrome Surgeries: Yes (colon resection; stem cell transplant) Appendectomy, Bowel Surgery, Gallbladder, Hysterectomy Respiratory: No Cardiac: Yes Hypertension Neurological: No Genitourinary: Yes Bladder Infection Gastrointestinal: No Musculoskeletal: No Endocrine: No HEENT: No Cancer: Yes (blood cancer; light chain proteins, MULTIPLE MYELOMA) Psychosocial: No Integumentary: No Blood Disorders: Yes Family Medical History Cancer, Stroke Physical Exam Vital Signs Vital Signs - First Documented 07/02/21 10:00 Temp 36.3 Pulse 71 Resp 18 B/P (MAP) 159/86 (110) Pulse Ox 99 O2 Delivery Room Air Capillary Refill : Height/Weight/BMI Height: 5'1.00" Weight: 127lbs. oz. 57.416920uq; 23.00 BMI Method:Stated General Appearance: WD/WN, no apparent distress HEENT: PERRL/EOMI, normal ENT inspection, pharynx normal, other (Moist mucous membranes) Neck: non-tender, full range of motion, supple, normal inspection Respiratory: chest non-tender, lungs clear, normal breath sounds, no respiratory distress, no accessory muscle use Cardiovascular: regular rate, rhythm, no edema, no murmur Gastrointestinal: normal bowel sounds, non tender, soft; No distended, No guarding, No rebound Extremities: normal range of motion, non-tender, normal inspection, no pedal edema, no calf tenderness, normal capillary refill Back: normal inspection, no CVA tenderness, no vertebral tenderness Neurologic/Psychiatric: no motor/sensory deficits, alert, normal mood/affect Skin: normal color, warm/dry Lymphatic: no adenopathy Progress/Results/Core Measures Results/Orders Lab Results Laboratory Tests Test 07/02/21 10:11 Range/Units White Blood Count 5.5 4.3-11.0 10^3/uL Red Blood Count 3.43 L 3.80-5.11 10^6/uL Hemoglobin 11.4 L 11.5-16.0 g/dL Hematocrit 33 L 35-52 % Mean Corpuscular Volume 97 80-99 fL Mean Corpuscular Hemoglobin 33 25-34 pg Mean Corpuscular Hemoglobin Concent 34 32-36 g/dL Red Cell Distribution Width 12.8 10.0-14.5 % Platelet Count 138 130-400 10^3/uL Mean Platelet Volume 10.4 9.0-12.2 fL Immature Granulocyte % (Auto) 1 % Neutrophils (%) (Auto) 79 H 42-75 % Lymphocytes (%) (Auto) 11 L 12-44 % Monocytes (%) (Auto) 9 0-12 % Eosinophils (%) (Auto) 1 0-10 % Basophils (%) (Auto) 0 0-10 % Neutrophils # (Auto) 4.4 1.8-7.8 X 10^3 Lymphocytes # (Auto) 0.6 L 1.0-4.0 X 10^3 Monocytes # (Auto) 0.5 0.0-1.0 X 10^3 Eosinophils # (Auto) 0.0 0.0-0.3 10^3/uL Basophils # (Auto) 0.0 0.0-0.1 10^3/uL Immature Granulocyte # (Auto) 0.0 0.0-0.1 10^3/uL Sodium Level 138 135-145 MMOL/L Potassium Level 4.0 3.6-5.0 MMOL/L Chloride Level 104 98-107 MMOL/L Carbon Dioxide Level 20 L 21-32 MMOL/L Anion Gap 14 5-14 MMOL/L Blood Urea Nitrogen 11 7-18 MG/DL Creatinine 1.28 0.60-1.30 MG/DL Estimat Glomerular Filtration Rate 46 BUN/Creatinine Ratio 9 Glucose Level 106 H 70-105 MG/DL Calcium Level 9.7 8.5-10.1 MG/DL Corrected Calcium 9.5 8.5-10.1 MG/DL Total Bilirubin 0.4 0.1-1.0 MG/DL Aspartate Amino Transf (AST/SGOT) 17 5-34 U/L Alanine Aminotransferase (ALT/SGPT) 10 0-55 U/L Alkaline Phosphatase 62 40-136 U/L Total Protein 6.6 6.4-8.2 GM/DL Albumin 4.2 3.2-4.5 GM/DL Lipase 46 8-78 U/L My Orders Orders - LUIS ALBERTO TORRES MD Cbc With Automated Diff (07/02/21 10:05) Comprehensive Metabolic Panel (07/02/21 10:05) Lipase (07/02/21 10:05) Promethazine Injection (Phenergan Injec (07/02/21 10:15) Ns Iv 500 Ml (Sodium Chloride 0.9%) (07/02/21 10:15) Morphine Injection (Morphine Injection (07/02/21 10:09) D5 Ns 1000 Ml Iv Solution (Dextrose 5%/0 (07/02/21 10:45) Droperidol Inj (Ed Only) (Inapsine Inj ( (07/02/21 10:45) Medications Given in ED Current Medications Medications Dose Ordered Sig/Eligio Route Start Time Stop Time Status Last Admin Dose Admin Promethazine HCl 25 mg ONCE ONCE IVP 07/02/21 10:15 07/02/21 10:16 DC 07/02/21 10:14 25 MG Sodium Chloride 500 ml @ 0 mls/hr Q0M ONCE IV 07/02/21 10:15 07/02/21 10:16 DC 07/02/21 10:15 1,000 MLS/HR Vital Signs/I&O 07/02/21 10:00 Temp 36.3 Pulse 71 Resp 18 B/P (MAP) 159/86 (110) Pulse Ox 99 O2 Delivery Room Air Progress Progress Note : Progress Note 70-year-old female with above history coming in due to nonbloody nonbilious vomiting for the past couple days. ABCs were intact and vitals were stable on presentation. Physical exam reassuring including a soft and nontender abdomen. This seems consistent when I review her chart with her past 5 4 more emergency department visits within the past year. We accessed her port and lacie basic labs. Electrolytes normal, creatinine is essentially the best it ever been. She was given an equivalent dose of IV morphine to her p.o. morphine that she takes. Also given Phenergan. Given IV fluids. On reassessment she is non toxic-appearing, repeat abdominal exam reassuring. I believe she is stable for discharge with outpatient follow-up. She was sent home with strict return precautions Departure Impression Primary Impression: Nausea and vomiting in adult Disposition: 01 HOME, SELF-CARE Condition: Stable Departure-Patient Inst. Decision time for Depature: 12:00 Referrals: ANA LUISA BARRAGAN APRN (PCP) Primary Care Physician [facility] (Family) Primary Care Physician Patient Instructions: Nausea and Vomiting, Adult (DC) Add. Discharge Instructions: Your labs look good including normal electrolytes and your kidney function looks the best it has looked essentially. Your vitals look good and on your exam it appears like you are well hydrated. Take small but frequent sips of fluids such as gatorade or apple juice mixed with water. We sent Phenergan to your pharmacy which you can take if the Zofran does not work. Follow-up with your regular doctor in the next couple days if things are not improving. Scripts Promethazine HCl (Promethazine Tablet) 25 Mg Tablet 25 MG PO Q6H PRN for NAUSEA/VOMITING for 5 Days, #20 TAB Prov: LUIS ALBERTO TORRES MD 07/02/21 LUIS ALBERTO TORRES MD July 02, 2021 10:09
[2021-07-02] MEDS ORDERED: NS IV 500 ML 500 ML IV ONE (10:15)
[2021-07-02] MEDS ORDERED: PROMETHAZINE INJ 25 MG/ML (PHENERGAN) AMP IVP ONE (10:15)
[2021-07-02 10:24] LABS: HEMOGLOBIN 11.4 g/dL (11.5-16.0); MEAN CORPUSCULAR HEMOGLOBIN 33 pg (25-34); WHITE BLOOD COUNT 5.5 10^3/uL (4.3-11.0)
[2021-07-02 10:25] LABS: BASOPHILS % (AUTO) 0 % (0-10); EOSINOPHILS % (AUTO) 1 % (0-10); HEMATOCRIT 33 % (35-52); LYMPHOCYTES % (AUTO) 11 % (12-44); MEAN CORPUSCULAR HGB CONC 34 g/dL (32-36); MEAN CORPUSCULAR VOLUME 97 fL (80-99); MEAN PLATELET VOLUME 10.4 fL (9.0-12.2); MONOCYTES % (AUTO) 9 % (0-12); NEUTROPHILS % (AUTO) 79 % (42-75); PLATELET COUNT 138 10^3/uL (130-400)
[2021-07-02 10:26] LABS: LYMPHOCYTES # (AUTO) 0.6 X 10^3 (1.0-4.0); MONOCYTES # (AUTO) 0.5 X 10^3 (0.0-1.0); NEUTROPHILS # (AUTO) 4.4 X 10^3 (1.8-7.8)
[2021-07-02 10:35] LABS: BILIRUBIN,TOTAL 0.4 MG/DL (0.1-1.0); CALCIUM 9.7 MG/DL (8.5-10.1); CREATININE SERUM 1.28 MG/DL (0.60-1.30); TOTAL PROTEIN 6.6 GM/DL (6.4-8.2)
[2021-07-02 10:36] LABS: ALBUMIN 4.2 GM/DL (3.2-4.5)
[2021-07-02] MEDS ORDERED: D5 NS 1000 ML IV SOLUTION 1,000 ML IV STA (10:45)
[2021-07-02] MEDS ORDERED: DROPERIDOL 5 MG/2 ML (INAPSINE) ED ONLY! IV PRN (10:45)
[2021-07-02] MEDS ORDERED: PROM25TA14 PO (11:03)
[2021-07-02 12:30] VITALS: BP 114/67
== END 2021-07-02 12:30 | disposition home or self-care (01) ==
LOC: EDUNIT# 09:59 → ER FS 10:00
DX: R11.2 Nausea with vomiting, unspecified (principal); C95.90 Leukemia, unspecified not having achieved remission; C90.00 Multiple myeloma not having achieved remission; Z94.84 Stem cells transplant status
CPT/HCPCS: 36415; 80053; 83690; 85025

== ENCOUNTER 2021-07-10 11:00 | Emergency (ER) | payer MEDICARE, OTHER ==
[2021-07-10] MEDS ORDERED: FAMOTIDINE 20MG/2ML IV (PEPCID) IVP STA (11:19)
[2021-07-10] MEDS ORDERED: PROMETHAZINE INJ 25 MG/ML (PHENERGAN) AMP IVP STA (11:19)
[2021-07-10] MEDS ORDERED: NS IV 1000 ML 1,000 ML IV STA (11:19)
[2021-07-10] MEDS ORDERED: diphenhydrAMINE 50 MG/ML INJ (BENADRYL) IVP STA (11:19)
[2021-07-10] MEDS ORDERED: morphine INJ 10 MG/ML 1ML (SYR OR VIAL) IVP STA (11:19)
[2021-07-10 11:31] VITALS: BP 104/62
[2021-07-10 11:36] LABS: BILIRUBIN,URINE NEGATIVE (NEGATIVE); CLARITY,URINE CLEAR; COLOR,URINE YELLOW; GLUCOSE, URINE (UA) NEGATIVE (NEGATIVE); KETONES,URINE NEGATIVE (NEGATIVE); LEUKOCYTE ESTERASE ,URINE NEGATIVE (NEGATIVE); NITRITE,URINE NEGATIVE (NEGATIVE); PH,URINE 6.5 (5-9); PROTEIN,URINE NEGATIVE (NEGATIVE)
[2021-07-10 11:41] LABS: BASOPHILS % (AUTO) 0 % (0-10); EOSINOPHILS # (AUTO) 0.1 10^3/uL (0.0-0.3); EOSINOPHILS % (AUTO) 2 % (0-10); HEMATOCRIT 30 % (35-52); HEMOGLOBIN 9.8 g/dL (11.5-16.0); LYMPHOCYTES # (AUTO) 1.4 10^3/uL (1.0-4.0); LYMPHOCYTES % (AUTO) 27 % (12-44); MEAN CORPUSCULAR HEMOGLOBIN 33 pg (25-34); MEAN CORPUSCULAR HGB CONC 33 g/dL (32-36); MEAN CORPUSCULAR VOLUME 100 fL (80-99); MEAN PLATELET VOLUME 10.8 fL (9.0-12.2); MONOCYTES # (AUTO) 0.6 10^3/uL (0.0-1.0); MONOCYTES % (AUTO) 12 % (0-12); NEUTROPHILS # (AUTO) 3.1 10^3/uL (1.8-7.8); NEUTROPHILS % (AUTO) 59 % (42-75); PLATELET COUNT 117 10^3/uL (130-400); WHITE BLOOD COUNT 5.2 10^3/uL (4.3-11.0)
[2021-07-10 12:01] LABS: BACTERIA,URINE NEGATIVE /HPF; SQUAMOUS EPITHELIAL CELL,UR RARE /HPF
[2021-07-10 12:07] LABS: CREATININE SERUM 1.47 MG/DL (0.60-1.30); POTASSIUM 4.4 MMOL/L (3.6-5.0)
[2021-07-10 12:08] LABS: ALBUMIN 3.7 GM/DL (3.2-4.5); BILIRUBIN,TOTAL 0.2 MG/DL (0.1-1.0); CALCIUM 8.5 MG/DL (8.5-10.1); TOTAL PROTEIN 5.5 GM/DL (6.4-8.2)
--- NOTE | 2021-07-10 12:28 | ED General ---
General Chief Complaint: Abdominal/GI Problems Stated Complaint: VOMITING Nursing Triage Note: Patient has presented to ER with cc of "dry heaving" this morning. Source of Information: Patient, Old Records History of Present Illness Date Seen by Provider: Jul 10, 2021 Time Seen by Provider: 11:04 Initial Comments 70-year-old female presenting with complaints of nausea and dry heaving. She stated that this came on this morning after she had left the house. She did take her regular medicines this morning. She had chemotherapy on Wednesday for her multiple myeloma. She does have a history of recurrent nausea and vomiting. She has been seeing multiple times in the emergency department for similar complaints. Most recently she was here on July 02 for nausea and vomiting and at that time was concerned that she was having a rebound headache for withdrawal from not keeping her chronic pain medicine down. Today she did take her pain medicine but feels like she is having dry heaves. She denies fever, chills, pain with urination, headache, cough, abdominal pain, diarrhea. Timing/Duration: 1/2 Hour Severity: Severe Associated Systoms: No Chest Pain, No Cough, No Diaphoresis, No Fever/Chills, No Headaches, No Loss of Appetite, No Malaise; Nausea/Vomiting (Nausea and dry heaves); No Rash, No Seizure, No Shortness of Air, No Syncope, No Weakness Allergies and Home Medications Allergies Coded Allergies: Sulfa (Sulfonamide Antibiotics) (Verified Allergy, Unknown, hives, 05/24/18) latex (Verified Allergy, Unknown, anaphylaxis, 05/24/18) vancomycin (Verified Allergy, Unknown, hives, 05/24/18) Patient Home Medication List Home Medication List Reviewed: Yes ALPRAZolam (Xanax Tablet) 0.25 Mg Tablet, 0.25 MG PO TID PRN for ANXIETY, (Reported) Entered as Reported by: ANA LUISA NOVA on 03/01/19 1043 Acyclovir (Acyclovir) 400 Mg Tablet, 400 MG PO BID, (Reported) Entered as Reported by: MAI SEGOVIA on 05/24/18 0932 Amlodipine Besylate (Amlodipine Besylate) 5 Mg Tablet, 5 MG PO DAILY, (Reported) Entered as Reported by: MAI SEGOVIA on 05/24/18 0932 Apixaban (Eliquis) 5 Mg Tablet, 5 MG PO BID, (Reported) Entered as Reported by: ANA LUISA NOVA on 03/01/19 1220 Calcium Carbonate/Vitamin D3 (Os-Alan 500+D3 Caplet) 1 Each Tablet, 1 TAB PO BID, (Reported) Entered as Reported by: ANA LUISA NOVA on 03/01/19 1043 Cholecalciferol (Vitamin D3) (Vitamin D3) 2,000 Unit Tablet, 2,000 UNIT PO BID, (Reported) Entered as Reported by: ANA LUISA NOVA on 03/01/19 1043 Cyanocobalamin (Cyanocobalamin Injection) 1,000 Mcg/Ml Inj, 1,000 MCG IM UD, (Reported) Entered as Reported by: ANA LUISA NOVA on 03/01/19 1044 Diphenhydramine HCl (Benadryl) 25 Mg Capsule, 100 MG PO HS PRN for ITCHING, (Reported) Entered as Reported by: ANA LUISA NOVA on 03/01/19 1043 Docusate Sodium (Colace) 100 Mg Capsule, 200 MG PO HS PRN for CONSTIPATION-1ST LINE, (Reported) Entered as Reported by: ANA LUISA NOVA on 03/01/19 1043 Fexofenadine HCl (Emelia Allergy) 60 Mg Tablet, 60 MG PO BID PRN for ALLERGIES, (Reported) Entered as Reported by: ANA LUISA NOVA on 03/01/19 1043 Gabapentin (Gabapentin) 600 Mg Tablet, 600 MG PO HS, (Reported) Entered as Reported by: MAI SEGOVIA on 05/24/18 0932 Granisetron (Sancuso) 1 Each Patch.tdwk, 1 PATCH TD Romero, (Reported) Entered as Reported by: MAI SEGOVIA on 05/24/18 0932 Loperamide HCl (Imodium A-D) 2 Mg Tablet, PO UD PRN for DIARRHEA, (Reported) Entered as Reported by: ANA LUISA NOVA on 03/01/19 1043 Losartan Potassium (Losartan Potassium) 100 Mg Tablet, 50 MG PO DAILY, (Reported) Entered as Reported by: ANA LUISA NOVA on 03/01/19 1236 Morphine Sulfate (Ms Contin) 30 Mg Tablet.er, 30 MG PO BID, (Reported) Entered as Reported by: ANA LUISA NOVA on 03/01/19 1043 Morphine Sulfate (Morphine Sulfate IR Tablet) 15 Mg Tablet, 15 MG PO TID PRN for PAIN-SEVERE (8-10), (Reported) Entered as Reported by: ANA LUISA NOVA on 03/01/19 1043 Naloxegol Oxalate (Movantik) 25 Mg Tablet, 25 MG PO SuMoWeThFrSa, (Reported) Entered as Reported by: MAI SEGOVIA on 05/24/18 0932 Ondansetron (Ondansetron Odt) 8 Mg Tab.rapdis, 8 MG PO TID PRN for NAUSEA/VOMITING-1ST LINE, (Reported) Entered as Reported by: ANA LUISA NOVA on 03/01/19 1044 Ondansetron (Ondansetron Odt) 8 Mg Tab.rapdis, 8 MG PO Q8H PRN for NAUSEA/VOMITING Prescribed by: AINSLEY ROYAL on 08/21/20 1233 Ondansetron (Ondansetron Odt) 4 Mg Tab.rapdis, 4 MG PO Q6H PRN for NAUSEA/VOMITING Prescribed by: ANA FERNANDEZ on 03/09/21 1131 Pantoprazole Sodium (Pantoprazole Sodium) 40 Mg Tablet.dr, 40 MG PO DAILY, (Reported) Entered as Reported by: MAI SEGOVIA on 05/24/18 0932 Phenazopyridine HCl (Azo Urinary Pain Relief) 97.5 Mg Tablet, 97.5 MG PO DAILY PRN for URINARY PAIN, (Reported) Entered as Reported by: ANA LUISA NOVA on 03/01/19 1043 Polyethylene Glycol 3350 (Miralax) 17 Gm Powd.pack, 17 GM PO Q2H PRN for CONSTIPATION-2ND LINE, (Reported) Entered as Reported by: ANA LUISA NOVA on 03/01/19 1043 Potassium Chloride (Klor-Con M10) 10 Meq Tab.er.prt, 10 MEQ PO BID, (Reported) Entered as Reported by: MAI SEGOVIA on 05/24/18 0932 Potassium Phosphate,Monobasic (K-Phos Original) 500 Mg Tablet.alba, 1,000 MG PO BID, (Reported) Entered as Reported by: MAI SEGOVIA on 05/24/18 0932 Promethazine HCl (Promethazine Suppository) 25 Mg Supp.rect, 25 MG RC Q6H PRN for NAUSEA/VOMITING-2ND LINE Prescribed by: NGOC CASTRO on 07/20/20 1240 Promethazine HCl (Promethazine Tablet) 25 Mg Tablet, 25 MG PO Q6H PRN for NAUSEA/VOMITING Prescribed by: LUIS ALBERTO TORRES on 07/02/21 1103 Rosuvastatin Calcium (Crestor) 10 Mg Tablet, 10 MG PO DAILY, (Reported) Entered as Reported by: ANA LUISA NOVA on 03/01/19 1012 Sennosides (Senokot) 8.6 Mg Tablet, 8.6 MG PO DAILY PRN for CONSTIPATION-5TH LINE, (Reported) Entered as Reported by: ANA LUISA NOVA on 03/01/19 1043 Temazepam (Temazepam) 15 Mg Capsule, 15 MG PO HS PRN for SLEEP, (Reported) Entered as Reported by: ANA LUISA NOVA on 03/01/19 1043 Thyroid,Pork (Rainelle Thyroid) 30 Mg Tablet, 30 MG PO DAILY, (Reported) Entered as Reported by: ANA LUISA NOVA on 03/01/19 1212 Tramadol HCl (Tramadol HCl) 50 Mg Tablet, 50 MG PO TID PRN for PAIN-MODERATE (5- 7), (Reported) Entered as Reported by: ANA LUISA NOVA on 03/01/19 1043 [[place]] , INJ WEDNESDAY, (Reported) Entered as Reported by: ANA LUISA NOVA on 03/01/19 1043 Review of Systems Review of Systems Constitutional: see HPI EENTM: No epistaxis, No nose congestion Respiratory: No cough, No short of breath Cardiovascular: No chest pain Gastrointestinal: see HPI Genitourinary: see HPI Musculoskeletal: no symptoms reported Skin: No rash Psychiatric/Neurological: Denies Headache Hematologic/Lymphatic: No Symptoms Reported Immunological/Allergic: no symptoms reported Past Uipjrac-Hcllqe-Vgbndw Hx Patient Social History Tobacco Use?: No Use of E-Cig and/or Vaping dev: No Substance use?: No Alcohol Use?: No Immunizations Up To Date First/Initial COVID19 Vaccinat: 04/2020 Second COVID19 Vaccination Luis: 05/2020 Third COVID19 Vaccination Date: yes Seasonal Allergies Seasonal Allergies: No Past Medical History 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 Surgeries: Yes (colon resection; stem cell transplant) Appendectomy, Bowel Surgery, Gallbladder, Hysterectomy Respiratory: No Cardiac: Yes Hypertension Neurological: No Genitourinary: Yes Bladder Infection Gastrointestinal: No Musculoskeletal: No Endocrine: No HEENT: No Cancer: Yes (blood cancer; light chain proteins, MULTIPLE MYELOMA) Psychosocial: No Integumentary: No Blood Disorders: Yes Family Medical History Cancer, Stroke Physical Exam Vital Signs Vital Signs - First Documented 07/10/21 11:31 Temp 35.7 Pulse 68 Resp 18 B/P (MAP) 104/62 (76) Pulse Ox 96 O2 Delivery Room Air Capillary Refill : Height, Weight, BMI Height: 5'1.00" Weight: 127lbs. oz. 57.850266il; 21.00 BMI Method:Stated General Appearance: Anxious, Moderate Distress HEENT: Pharynx Normal Neck: Full Range of Motion, Non Tender, Supple Respiratory: Chest Non Tender, Lungs Clear, Normal Breath Sounds, No Accessory Muscle Use, No Respiratory Distress Cardiovascular: Regular Rate, Rhythm, Normal Peripheral Pulses Gastrointestinal: Normal Bowel Sounds, No Pulsatile Mass, Non Tender, Soft Rectal: Deferred Extremity: Normal Capillary Refill, Normal Inspection, No Pedal Edema Neurologic/Psychiatric: Other (anxious and somnolent. falling asleep in between dry heaves and when not being stimulated by asking questions) Skin: Normal Color, Warm/Dry Progress/Results/Core Measures Suspected Sepsis SIRS Temperature: Pulse: 68 Respiratory Rate: 18 Laboratory Tests 07/10/21 11:27: White Blood Count 5.2 Blood Pressure 104 /62 Mean: 76 Laboratory Tests 07/10/21 11:27: Creatinine 1.47H, Platelet Count 117L, Total Bilirubin 0.2 Results/Orders Lab Results Laboratory Tests Test 07/10/21 11:27 Range/Units White Blood Count 5.2 4.3-11.0 10^3/uL Red Blood Count 2.97 L 3.80-5.11 10^6/uL Hemoglobin 9.8 L 11.5-16.0 g/dL Hematocrit 30 L 35-52 % Mean Corpuscular Volume 100 H 80-99 fL Mean Corpuscular Hemoglobin 33 25-34 pg Mean Corpuscular Hemoglobin Concent 33 32-36 g/dL Red Cell Distribution Width 13.2 10.0-14.5 % Platelet Count 117 L 130-400 10^3/uL Mean Platelet Volume 10.8 9.0-12.2 fL Immature Granulocyte % (Auto) 0 % Neutrophils (%) (Auto) 59 42-75 % Lymphocytes (%) (Auto) 27 12-44 % Monocytes (%) (Auto) 12 0-12 % Eosinophils (%) (Auto) 2 0-10 % Basophils (%) (Auto) 0 0-10 % Neutrophils # (Auto) 3.1 1.8-7.8 10^3/uL Lymphocytes # (Auto) 1.4 1.0-4.0 10^3/uL Monocytes # (Auto) 0.6 0.0-1.0 10^3/uL Eosinophils # (Auto) 0.1 0.0-0.3 10^3/uL Basophils # (Auto) 0.0 0.0-0.1 10^3/uL Immature Granulocyte # (Auto) 0.0 0.0-0.1 10^3/uL Percent Immature Platelet Fraction 2.9 0.0-7.6 % Urine Color YELLOW Urine Clarity CLEAR Urine pH 6.5 5-9 Urine Specific [place] <=1.005 1.016-1.022 Urine Protein NEGATIVE NEGATIVE Urine Glucose (UA) NEGATIVE NEGATIVE Urine Ketones NEGATIVE NEGATIVE Urine Nitrite NEGATIVE NEGATIVE Urine Bilirubin NEGATIVE NEGATIVE Urine Urobilinogen 0.2 < = 1.0 MG/DL Urine Leukocyte Esterase NEGATIVE NEGATIVE Urine RBC (Auto) NEGATIVE NEGATIVE Urine RBC NONE /HPF Urine WBC NONE /HPF Urine Squamous Epithelial Cells RARE /HPF Urine Crystals NONE /LPF Urine Bacteria NEGATIVE /HPF Urine Casts NONE /LPF Urine Mucus NEGATIVE /LPF Urine Culture Indicated NO Sodium Level 133 L 135-145 MMOL/L Potassium Level 4.4 3.6-5.0 MMOL/L Chloride Level 103 98-107 MMOL/L Carbon Dioxide Level 20 L 21-32 MMOL/L Anion Gap 10 5-14 MMOL/L Blood Urea Nitrogen 12 7-18 MG/DL Creatinine 1.47 H 0.60-1.30 MG/DL Estimat Glomerular Filtration Rate 39 BUN/Creatinine Ratio 8 Glucose Level 154 H 70-105 MG/DL Calcium Level 8.5 8.5-10.1 MG/DL Corrected Calcium 8.7 8.5-10.1 MG/DL Total Bilirubin 0.2 0.1-1.0 MG/DL Aspartate Amino Transf (AST/SGOT) 23 5-34 U/L Alanine Aminotransferase (ALT/SGPT) 15 0-55 U/L Alkaline Phosphatase 55 40-136 U/L Total Protein 5.5 L 6.4-8.2 GM/DL Albumin 3.7 3.2-4.5 GM/DL Lipase 24 8-78 U/L My Orders Orders - NGOC CASTRO MD Implanted Port: Access (07/10/21 11:18) Comprehensive Metabolic Panel (07/10/21 11:18) Lipase (07/10/21 11:18) Ua Culture If Indicated (07/10/21 11:18) Cbc With Automated Diff (07/10/21 11:18) Ns Iv 1000 Ml (Sodium Chloride 0.9%) (07/10/21 11:19) Promethazine Injection (Phenergan Injec (07/10/21 11:19) Famotidine Injection (Pepcid Injection) (07/10/21 11:19) Vital Signs/I&O 07/10/21 11:31 Temp 35.7 Pulse 68 Resp 18 B/P (MAP) 104/62 (76) Pulse Ox 96 O2 Delivery Room Air Capillary Refill : Blood Pressure Mean: 76 Progress Note #1: Progress Note Access her port and administer normal saline 1 L IV fluid bolus, Phenergan and Pepcid. Initially ordered morphine and Benadryl however with patient being somnolent will hold off on administering any of that. Check basic labs and urinalysis. Progress Note #2: Progress Note Labs appear stable with some mild anemia. She has chronic renal insufficiency with creatinine at 1.47. Her urinalysis was dilute with a specific gravity less than 1.005. She had no signs of infection or dehydration on the urinalysis. Her vital signs remained stable and her fluids with the Phenergan and Pepcid are infusing. Progress Note #3: Progress Note Fluids have almost infused when her brother showed up as her ride. He had not know she was in the ED as he left her at the clinic and she was getting IVF at the clinic. Then when she left the clinic she had taken her pain medicine on an empty stomach and started dry heaving. She is doing better now. Will discharge to home and have her continue to take her regular medicines. Departure Impression Primary Impression: Nausea and vomiting in adult Disposition: 01 HOME, SELF-CARE Condition: Stable Departure-Patient Inst. Decision time for Depature: 12:39 Referrals: ANA LUISA BARRAGAN APRN (PCP) Primary Care Physician [facility] (Family) Primary Care Physician Patient Instructions: Nausea and Vomiting, Adult ED Add. Discharge Instructions: Try to stay well hydrated and continue on your regular medicines. Check with your regular providers for continued concerns All discharge instructions reviewed with patient and/or family. Voiced understanding. NGOC CASTRO MD Jul 10, 2021 12:28
== END 2021-07-10 13:33 | disposition home or self-care (01) ==
LOC: EDUNIT# 11:00 → ER FS 11:01
DX: R11.2 Nausea with vomiting, unspecified (principal); D64.9 Anemia, unspecified; I12.9 Hypertensive chronic kidney disease with stage 1 through stage 4 chronic kidney disease, or unspecified chronic kidney disease; N18.9 Chronic kidney disease, unspecified; Z91.040 Latex allergy status
CPT/HCPCS: 36415; 80053; 81000; 83690; 85025; 99282

== ENCOUNTER 2021-08-29 20:26 | Emergency (ER) | payer MEDICARE, OTHER ==
[~2021-08-29] VITALS: Ht 154.9 cm; Wt 52.0 kg
[~2021-08-29 20:26] MED LIST changes: +NF-CRES10T PO; -ROSU10TA22 PO
--- NOTE | 2021-08-29 20:37 | ED GI ---
General Stated Complaint: N/V History of Present Illness Date Seen by Provider: Aug 29, 2021 Time Seen by Provider: 20:37 Initial Comments 70-year-old female with PMH of multiple myeloma on chemo is here with complaints of intractable nausea and vomiting which began today. Patient has only been able to take sips of water and eat very little today morning. Denies abdominal pain, headache, dizziness, chest pain, shortness of breath, diarrhea. Patient received chemo on Wednesday. Patient occasionally has bouts of intractable v omiting and usually Phenergan and Pepcid and fluids help her in the ER. Allergies and Home Medications Allergies Coded Allergies: Sulfa (Sulfonamide Antibiotics) (Verified Allergy, Unknown, hives, 9) latex (Verified Allergy, Unknown, anaphylaxis, 05/24/18) midazolam (Verified Allergy, Unknown, 08/29/21) vancomycin (Verified Allergy, Unknown, hives, 05/24/18) Patient Home Medication List Home Medication List Reviewed: Yes ALPRAZolam (Xanax Tablet) 0.25 Mg Tablet, 0.25 MG PO TID PRN for ANXIETY, ( Reported) Entered as Reported by: ANA LUISA NOVA on 03/01/19 1043 Acyclovir (Acyclovir) 400 Mg Tablet, 400 MG PO BID, (Reported) Entered as Reported by: MAI SEGOVIA on 05/24/18 0932 Amlodipine Besylate (Amlodipine Besylate) 5 Mg Tablet, 5 MG PO DAILY, (Reported) Entered as Reported by: MAI SEGOVIA on 05/24/18 0932 Apixaban (Eliquis) 5 Mg Tablet, 5 MG PO BID, (Reported) Entered as Reported by: ANA LUISA NOVA on 03/01/19 1220 Calcium Carbonate/Vitamin D3 (Os-Alan 500+D3 Caplet) 1 Each Tablet, 1 TAB PO BID, (Reported) Entered as Reported by: ANA LUISA NOVA on 03/01/19 1043 Cholecalciferol (Vitamin D3) (Vitamin D3) 2,000 Unit Tablet, 2,000 UNIT PO BID, (Reported) Entered as Reported by: ANA LUISA NOVA on 03/01/19 1043 Cyanocobalamin (Cyanocobalamin Injection) 1,000 Mcg/Ml Inj, 1,000 MCG IM UD, (Reported) Entered as Reported by: ANA LUISA NOVA on 03/01/19 1044 Diphenhydramine HCl (Benadryl) 25 Mg Capsule, 100 MG PO HS PRN for ITCHING, (Reported) Entered as Reported by: ANA LUISA NOVA on 03/01/19 1043 Docusate Sodium (Colace) 100 Mg Capsule, 200 MG PO HS PRN for CONSTIPATION-1ST LINE, (Reported) Entered as Reported by: ANA LUISA NOVA on 03/01/19 1043 Fexofenadine HCl (Emelia Allergy) 60 Mg Tablet, 60 MG PO BID PRN for ALLERGIES, (Reported) Entered as Reported by: ANA LUISA NOVA on 03/01/19 1043 Gabapentin (Gabapentin) 600 Mg Tablet, 600 MG PO HS, (Reported) Entered as Reported by: MAI SEGOVIA on 05/24/18 0932 Granisetron (Sancuso) 1 Each Patch.tdwk, 1 PATCH TD Romero, (Reported) Entered as Reported by: MAI SEGOVIA on 05/24/18 0932 Loperamide HCl (Imodium A-D) 2 Mg Tablet, PO UD PRN for DIARRHEA, (Reported) Entered as Reported by: ANA LUISA NOVA on 03/01/19 1043 Losartan Potassium (Losartan Potassium) 100 Mg Tablet, 50 MG PO DAILY, (Reported) Entered as Reported by: ANA LUISA NOVA on 03/01/19 1236 Morphine Sulfate (Ms Contin) 30 Mg Tablet.er, 30 MG PO BID, (Reported) Entered as Reported by: ANA LUISA NOVA on 03/01/19 1043 Morphine Sulfate (Morphine Sulfate IR Tablet) 15 Mg Tablet, 15 MG PO TID PRN for PAIN-SEVERE (8-10), (Reported) Entered as Reported by: ANA LUISA NOVA on 03/01/19 1043 Naloxegol Oxalate (Movantik) 25 Mg Tablet, 25 MG PO SuMoWeThFrSa, (Reported) Entered as Reported by: MAI SEGOVIA on 05/24/18 0932 Ondansetron (Ondansetron Odt) 8 Mg Tab.rapdis, 8 MG PO TID PRN for NAUSEA/VOMITING-1ST LINE, (Reported) Entered as Reported by: ANA LUISA NOVA on 03/01/19 1044 Ondansetron (Ondansetron Odt) 8 Mg Tab.rapdis, 8 MG PO Q8H PRN for NAUSEA/VOMITING Prescribed by: AINSLEY ROYAL on 08/21/20 1233 Ondansetron (Ondansetron Odt) 4 Mg Tab.rapdis, 4 MG PO Q6H PRN for NAUSEA/VOMITING Prescribed by: ANA FERNANDEZ on 03/09/21 1131 Pantoprazole Sodium (Pantoprazole Sodium) 40 Mg Tablet.dr, 40 MG PO DAILY, (Reported) Entered as Reported by: MAI SEGOVIA on 05/24/18 0932 Phenazopyridine HCl (Azo Urinary Pain Relief) 97.5 Mg Tablet, 97.5 MG PO DAILY PRN for URINARY PAIN, (Reported) Entered as Reported by: ANA LUISA NOVA on 03/01/19 1043 Polyethylene Glycol 3350 (Miralax) 17 Gm Powd.pack, 17 GM PO Q2H PRN for CONSTIPATION-2ND LINE, (Reported) Entered as Reported by: ANA LUISA NOVA on 03/01/19 1043 Potassium Chloride (Klor-Con M10) 10 Meq Tab.er.prt, 10 MEQ PO BID, (Reported) Entered as Reported by: MAI SEGOVIA on 05/24/18 0932 Potassium Phosphate,Monobasic (K-Phos Original) 500 Mg Tablet.alba, 1,000 MG PO BID, (Reported) Entered as Reported by: MAI SEGOVIA on 05/24/18 0932 Promethazine HCl (Promethazine Suppository) 25 Mg Supp.rect, 25 MG RC Q6H PRN for NAUSEA/VOMITING-2ND LINE Prescribed by: NGOC CASTRO on 07/20/20 1240 Promethazine HCl (Promethazine Tablet) 25 Mg Tablet, 25 MG PO Q6H PRN for NAUSEA/VOMITING Prescribed by: LUIS ALBERTO TORRES on 07/02/21 1103 Rosuvastatin Calcium (Crestor) 10 Mg Tablet, 10 MG PO DAILY, (Reported) Entered as Reported by: ANA LUISA NOVA on 03/01/19 1012 Sennosides (Senokot) 8.6 Mg Tablet, 8.6 MG PO DAILY PRN for CONSTIPATION-5TH LINE, (Reported) Entered as Reported by: ANA LUISA NOVA on 03/01/19 1043 Temazepam (Temazepam) 15 Mg Capsule, 15 MG PO HS PRN for SLEEP, (Reported) Entered as Reported by: ANA LUISA NOVA on 03/01/19 1043 Thyroid,Pork (Leary Thyroid) 30 Mg Tablet, 30 MG PO DAILY, (Reported) Entered as Reported by: ANA LUISA NOVA on 03/01/19 1212 Tramadol HCl (Tramadol HCl) 50 Mg Tablet, 50 MG PO TID PRN for PAIN-MODERATE (5- 7), (Reported) Entered as Reported by: ANA LUISA NOVA on 03/01/19 1043 [Valcade] , INJ WEDNESDAY, (Reported) Entered as Reported by: ANA LUISA NOVA on 03/01/19 1043 Review of Systems Review of Systems Constitutional: no symptoms reported EENTM: No Symptoms Reported Respiratory: No Symptoms Reported Cardiovascular: No Symptoms Reported Gastrointestinal: Nausea, Poor Appetite, Vomiting Genitourinary: No Symptoms Reported Musculoskeletal: no symptoms reported Skin: no symptoms reported Psychiatric/Neurological: No Symptoms Reported Endocrine: No Symptoms Reported Hematologic/Lymphatic: No Symptoms Reported Past Mloggnu-Iqasoq-Wnyrnp Hx Immunizations Up To Date First/Initial COVID19 Vaccinat: 04/2020 Second COVID19 Vaccination Luis: 05/2020 Third COVID19 Vaccination Date: yes Seasonal Allergies Seasonal Allergies: No Past Medical History 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 Surgeries: Yes (colon resection; stem cell transplant) Appendectomy, Bowel Surgery, Gallbladder, Hysterectomy Respiratory: No Cardiac: Yes Hypertension Neurological: No Genitourinary: Yes Bladder Infection Gastrointestinal: No Musculoskeletal: No Endocrine: No HEENT: No Cancer: Yes (blood cancer; light chain proteins, MULTIPLE MYELOMA) Psychosocial: No Integumentary: No Blood Disorders: Yes Family Medical History Cancer, Stroke Physical Exam Vital Signs Vital Signs - First Documented 08/29/21 20:30 Temp 36.8 Pulse 108 Resp 15 B/P (MAP) 144/96 (112) Pulse Ox 99 O2 Delivery Room Air Capillary Refill : Height/Weight/BMI Height: 5'1.00" Weight: 127lbs. oz. 57.358900in; 21.00 BMI Method:Stated General Appearance: WD/WN, mild distress HEENT: PERRL/EOMI Neck: non-tender, full range of motion, supple Respiratory: chest non-tender, lungs clear, normal breath sounds Cardiovascular: normal peripheral pulses, regular rate, rhythm Gastrointestinal: normal bowel sounds, non tender, soft, no organomegaly Neurologic/Psychiatric: no motor/sensory deficits, alert, normal mood/affect, oriented x 3 Skin: normal color Lymphatic: no adenopathy Focused Exam Lactate Level 08/29/21 20:45: Lactic Acid Level 0.85 Lactic Acid Level Laboratory Tests Test 08/29/21 20:45 Lactic Acid Level 0.85 MMOL/L (0.50-2.00) Progress/Results/Core Measures Results/Orders Lab Results Laboratory Tests Test 08/29/21 20:45 08/29/21 21:00 08/29/21 22:35 Range/Units White Blood Count 7.5 4.3-11.0 10^3/uL Red Blood Count 3.67 L 3.80-5.11 10^6/uL Hemoglobin 12.1 11.5-16.0 g/dL Hematocrit 35 35-52 % Mean Corpuscular Volume 97 80-99 fL Mean Corpuscular Hemoglobin 33 25-34 pg Mean Corpuscular Hemoglobin Concent 34 32-36 g/dL Red Cell Distribution Width 13.0 10.0-14.5 % Platelet Count 111 L 130-400 10^3/uL Mean Platelet Volume 10.4 9.0-12.2 fL Immature Granulocyte % (Auto) 0 % Neutrophils (%) (Auto) 82 H 42-75 % Lymphocytes (%) (Auto) 11 L 12-44 % Monocytes (%) (Auto) 6 0-12 % Eosinophils (%) (Auto) 0 0-10 % Basophils (%) (Auto) 0 0-10 % Neutrophils # (Auto) 6.2 1.8-7.8 10^3/uL Lymphocytes # (Auto) 0.9 L 1.0-4.0 10^3/uL Monocytes # (Auto) 0.5 0.0-1.0 10^3/uL Eosinophils # (Auto) 0.0 0.0-0.3 10^3/uL Basophils # (Auto) 0.0 0.0-0.1 10^3/uL Immature Granulocyte # (Auto) 0.0 0.0-0.1 10^3/uL Percent Immature Platelet Fraction 3.1 0.0-7.6 % Sodium Level 137 135-145 MMOL/L Potassium Level 4.3 3.6-5.0 MMOL/L Chloride Level 104 98-107 MMOL/L Carbon Dioxide Level 21 21-32 MMOL/L Anion Gap 12 5-14 MMOL/L Blood Urea Nitrogen 15 7-18 MG/DL Creatinine 1.30 0.60-1.30 MG/DL Estimat Glomerular Filtration Rate 45 BUN/Creatinine Ratio 12 Glucose Level 132 H 70-105 MG/DL Lactic Acid Level 0.85 0.50-2.00 MMOL/L Calcium Level 10.0 8.5-10.1 MG/DL Corrected Calcium 9.6 8.5-10.1 MG/DL Magnesium Level 1.9 1.6-2.4 MG/DL Total Bilirubin 0.6 0.1-1.0 MG/DL Aspartate Amino Transf (AST/SGOT) 15 5-34 U/L Alanine Aminotransferase (ALT/SGPT) 9 0-55 U/L Alkaline Phosphatase 69 40-136 U/L Troponin I < 0.30 <0.30 NG/ML Pro-B-Type Natriuretic Peptide 564.9 H <125.0 PG/ML Total Protein 7.1 6.4-8.2 GM/DL Albumin 4.5 3.2-4.5 GM/DL Lipase 38 8-78 U/L Influenza Type A (RT-PCR) Not Detected Not Detecte Influenza Type B (RT-PCR) Not Detected Not Detecte SARS-CoV-2 RNA (RT-PCR) Not Detected Not Detecte My Orders Orders - KAREN CONNER MD Cbc With Automated Diff (08/29/21 20:37) Comprehensive Metabolic Panel (08/29/21 20:37) Lactic Acid Analyzer (08/29/21 20:37) Lipase (08/29/21 20:37) Magnesium (08/29/21 20:37) Ua Culture If Indicated (08/29/21 20:37) Probnp Fs (08/29/21 20:37) Troponin I Fs (08/29/21 20:37) Chest 1 View Ap/Pa Only (08/29/21 20:38) Covid 19 Inhouse Test (08/29/21 20:38) Influenza A And B By Pcr (08/29/21 20:38) Iohexol Injection (Omnipaque 350 Mg/Ml 1 (08/29/21 21:00) Received Contrast (Hold Metformin- Contr (08/29/21 21:00) Sodium Chloride Flush (Catheter Flush Sy (08/29/21 21:00) Ns (Ivpb) (Sodium Chloride 0.9% Ivpb Bag (08/29/21 21:00) Promethazine Injection (Phenergan Injec (08/29/21 21:01) Famotidine Injection (Pepcid Injection) (08/29/21 21:01) Ed Iv/Invasive Line Start (08/29/21 21:34) Ns Iv 1000 Ml (Sodium Chloride 0.9%) (08/29/21 21:45) Vital Signs/I&O 08/29/21 20:30 Temp 36.8 Pulse 108 Resp 15 B/P (MAP) 144/96 (112) Pulse Ox 99 O2 Delivery Room Air Progress Progress Note : Progress Note 1. INTRACTABLE NAUSEA/ VOMITING: - CXR: unremarkable - CBC/ CMP/ UA: normal - NS IVF bolus/ Phenergan 25mg iv/ Pepcid 20mg iv STAT - Pt's symptoms resolved - Follow up with PCP as needed -The patient was seen in the ED, and treated appropriately to presentation at a specific point in time. Patient is informed that there is a possibility that disease and illness can evolve and change in acuity rapidly or slowly after patient is discharged from the ER. Precautionary advice given to the patient for immediate return to ER if symptoms worsen or do not resolve, and to seek emergency care sooner rather than later. Pt also advised on the importance of PCP follow up and compliance with management and follow up plan with PCP and/or specialist, as this is part of the management plan. Pt verbally expressed understanding. Diagnostic Imaging Diagonstic Imaging: Xray Plain Films/CT/US/NM/MRI: chest Comments [facility]. [place], [place] NAME: NIKOLASNorbertPEPPERELIANERHIANNON Adrian [facility] REC#: [id number] PT STATUS: REG ER : 1950 PHYSICIAN: KAREN CONNER MD ADMIT DATE: 08/29/21/ER FS Signed Date of Exam:08/29/21 CHEST 1 VIEW AP/PA ONLY EXAMINATION: Chest 1 view. HISTORY: Abdominal pain. COMPARISON: None available. FINDINGS: The lungs are clear without edema or pneumonia. No pleural effusion or pneumothorax. Heart size is normal. Right port catheter tip terminates in the superior vena cava. IMPRESSION: Clear lungs. Dictated by: Dictated on workstation # [id number] Dict: 08/29/212108 Trans: 08/29/212113 [facility] [id number] Interpreted by: TRAM PARIS MD Electronically signed by: TRAM PARIS MD 08/29/212113 Departure Impression Primary Impression: Intractable nausea and vomiting Disposition: HOME, SELF-CARE Condition: Improved Departure-Patient Inst. Referrals: ANA LUISA BARRAGAN APRN (PCP) Primary Care Physician [facility] (Family) Primary Care Physician Patient Instructions: Nausea and Vomiting With Cancer Treatment Add. Discharge Instructions: - Follow up with PCP as needed KAREN CONNER MD Aug 29, 2021 20:37
[2021-08-29] MEDS ORDERED: ONDANSETRON 4 MG/2 ML (SDV) Z0FRAN IVP ONE (20:45)
[2021-08-29 20:54] LABS: BASOPHILS % (AUTO) 0 % (0-10); EOSINOPHILS % (AUTO) 0 % (0-10); HEMATOCRIT 35 % (35-52); HEMOGLOBIN 12.1 g/dL (11.5-16.0); LYMPHOCYTES # (AUTO) 0.9 10^3/uL (1.0-4.0); LYMPHOCYTES % (AUTO) 11 % (12-44); MEAN CORPUSCULAR HEMOGLOBIN 33 pg (25-34); MEAN CORPUSCULAR HGB CONC 34 g/dL (32-36); MEAN CORPUSCULAR VOLUME 97 fL (80-99); MEAN PLATELET VOLUME 10.4 fL (9.0-12.2); MONOCYTES # (AUTO) 0.5 10^3/uL (0.0-1.0); MONOCYTES % (AUTO) 6 % (0-12); NEUTROPHILS # (AUTO) 6.2 10^3/uL (1.8-7.8); NEUTROPHILS % (AUTO) 82 % (42-75); PLATELET COUNT 111 10^3/uL (130-400); WHITE BLOOD COUNT 7.5 10^3/uL (4.3-11.0)
[2021-08-29] MEDS ORDERED: IOHEXOL 350 MG/ML 100 ML (OMNIPAQUE 350) VIAL IV ONE (21:00)
[2021-08-29] MEDS ORDERED: HOLD METFORMIN - RECEIVED CONTRAST 20 ML VIAL IV SCH (21:00)
[2021-08-29] MEDS ORDERED: CATHETER FLUSH 10 ML SYR IV PRN (21:00)
[2021-08-29] MEDS ORDERED: NS 100 ML (IVPB) BAG IV ONE (21:00)
[2021-08-29] MEDS ORDERED: PROMETHAZINE INJ 25 MG/ML (PHENERGAN) AMP IVP STA (21:01)
[2021-08-29] MEDS ORDERED: FAMOTIDINE 20MG/2ML IV (PEPCID) IV STA (21:01)
--- NOTE | 2021-08-29 21:11 | Diagnostic Imaging Report ---
EXAMINATION: Chest 1 view. HISTORY: Abdominal pain. COMPARISON: None available. FINDINGS: The lungs are clear without edema or pneumonia. No pleural effusion or pneumothorax. Heart size is normal. Right port catheter tip terminates in the superior vena cava. IMPRESSION: Clear lungs. Dictated by: Dictated on workstation # [id number]
[2021-08-29 21:19] LABS: ALANINE AMINOTRANSFERASE 9 U/L (0-55); ALBUMIN 4.5 GM/DL (3.2-4.5); ALKALINE PHOSPHATASE 69 U/L (40-136); BILIRUBIN,TOTAL 0.6 MG/DL (0.1-1.0); BUN/CREATININE RATIO 12; CARBON DIOXIDE 21 MMOL/L (21-32); CHLORIDE 104 MMOL/L (98-107); GFR ESTIMATED 45; GLUCOSE 132 MG/DL (70-105); LIPASE 38 U/L (8-78); MAGNESIUM 1.9 MG/DL (1.6-2.4); POTASSIUM 4.3 MMOL/L (3.6-5.0); SODIUM 137 MMOL/L (135-145); TOTAL PROTEIN 7.1 GM/DL (6.4-8.2)
[2021-08-29] MEDS ORDERED: NS IV 1000 ML 1,000 ML IV SCH (21:45)
[2021-08-29 22:38] LABS: BILIRUBIN,URINE NEGATIVE (NEGATIVE); COLOR,URINE YELLOW; GLUCOSE, URINE (UA) NEGATIVE (NEGATIVE); KETONES,URINE NEGATIVE (NEGATIVE); LEUKOCYTE ESTERASE ,URINE 1+ (NEGATIVE); NITRITE,URINE POSITIVE (NEGATIVE); PROTEIN,URINE 1+ (NEGATIVE)
[2021-08-29 22:41] LABS: BACTERIA,URINE LARGE /HPF; CLARITY,URINE CLOUDY; WBC,URINE TNTC /HPF
[2021-08-29] MEDS ORDERED: HEParin (CENTRAL IV FLUSH) 500 UNIT/5 ML SYR ONE (22:53)
[2021-08-29 22:57] VITALS: BP 142/68
== END 2021-08-29 22:57 | disposition home or self-care (01) ==
LOC: EDUNIT# 20:26 → ER FS 20:28
DX: R11.2 Nausea with vomiting, unspecified (principal); Z91.040 Latex allergy status; Z20.822 Contact with and (suspected) exposure to COVID-19
CPT/HCPCS: 36415; 71045; 80053; 81000; 83605; 83690; 83735; 83880; 84484; 85025; 87077; 87088; 87186; 87636

== ENCOUNTER 2021-09-27 02:59 | Emergency (ER) | payer MEDICARE, OTHER ==
[~2021-09-27] VITALS: Ht 152 cm; Wt 49.8 kg
[2021-09-27] MEDS ORDERED: morphine INJ 10 MG/ML 1ML (SYR OR VIAL) IVP STA ×2 (03:12→04:09)
[2021-09-27] MEDS ORDERED: PROMETHAZINE INJ 25 MG/ML (PHENERGAN) AMP IVP STA ×2 (03:12→04:09)
[2021-09-27] MEDS ORDERED: NS IV 1000 ML 1,000 ML IV STA (03:12)
[2021-09-27] MEDS ORDERED: PANTOPRAZOLE 40 MG (PROTONIX) VIAL IV STA (03:12)
[2021-09-27] MEDS ORDERED: diphenhydrAMINE 50 MG/ML INJ (BENADRYL) IVP STA ×2 (03:12→04:09)
--- NOTE | 2021-09-27 03:19 | ED General ---
General Chief Complaint: Head/Cervical Problems Stated Complaint: NAUSEA/VOMITING/HEADACHE Nursing Triage Note: Pt c/o headache with n/v since . Hx of multiple myloma and gets chemo every Wednesday. Denies head injury/trauma. Pt is moving all extremties and denies numbness/tingling to extremities. Source of Information: Patient, EMS, Old Records History of Present Illness Date Seen by Provider: Sep 27, 2021 Time Seen by Provider: 02:59 Initial Comments 71 yo female presenting by EMS from home with complaints with recurrent n/v and headache. She states this has been going on since . She has not kept any of her chronic pain medicine down for the last 2 days either. At 230 this morning she decided she had enough of the headache and n/v and called 911. She has had similar symptoms in the past with the last episode 1 month ago on 08/29. She has had some symptoms due to withdrawal in the past as well because she is to take chronic pain medicine for her multiple myeloma and has not been able to keep it down. She denies fever, head injury, pain with urination, diarrhea, cough, short of breath, chest pain, abdominal pain. She does have light sensitivity with this episode as well. Timing/Duration: 2-3 Days, Constant Severity: Severe Modifying Factors: worse with Eating Associated Systoms: No Chest Pain, No Cough, No Diaphoresis, No Fever/Chills; Headaches; No Loss of Appetite; Malaise, Nausea/Vomiting; No Rash, No Seizure, No Shortness of Air, No Syncope; Weakness Allergies and Home Medications Allergies Coded Allergies: Sulfa (Sulfonamide Antibiotics) (Verified Allergy, Unknown, hives, 05/24/18) latex (Verified Allergy, Unknown, anaphylaxis, 05/24/18) midazolam (Verified Allergy, Unknown, 08/29/21) vancomycin (Verified Allergy, Unknown, hives, 05/24/18) Patient Home Medication List Home Medication List Reviewed: Yes ALPRAZolam (Xanax Tablet) 0.25 Mg Tablet, 0.25 MG PO TID PRN for ANXIETY, (Reported) Entered as Reported by: ANA LUISA NOVA on 03/01/19 1043 Acyclovir (Acyclovir) 400 Mg Tablet, 400 MG PO BID, (Reported) Entered as Reported by: MAI SEGOVIA on 05/24/18 0932 Amlodipine Besylate (Amlodipine Besylate) 5 Mg Tablet, 5 MG PO DAILY, (Reported) Entered as Reported by: MAI SEGOVIA on 05/24/18 0932 Apixaban (Eliquis) 5 Mg Tablet, 5 MG PO BID, (Reported) Entered as Reported by: ANA LUISA NOVA on 03/01/19 1220 Calcium Carbonate/Vitamin D3 (Os-Alan 500+D3 Caplet) 1 Each Tablet, 1 TAB PO BID, (Reported) Entered as Reported by: ANA LUISA NOVA on 03/01/19 1043 Cholecalciferol (Vitamin D3) (Vitamin D3) 2,000 Unit Tablet, 2,000 UNIT PO BID, (Reported) Entered as Reported by: ANA LUISA NOVA on 03/01/19 1043 Cyanocobalamin (Cyanocobalamin Injection) 1,000 Mcg/Ml Inj, 1,000 MCG IM UD, (Reported) Entered as Reported by: ANA LUISA NOVA on 03/01/19 1044 Diphenhydramine HCl (Benadryl) 25 Mg Capsule, 100 MG PO HS PRN for ITCHING, (Reported) Entered as Reported by: ANA LUISA NOVA on 03/01/19 1043 Docusate Sodium (Colace) 100 Mg Capsule, 200 MG PO HS PRN for CONSTIPATION-1ST LINE, (Reported) Entered as Reported by: ANA LUISA NOVA on 03/01/19 1043 Fexofenadine HCl (Emelia Allergy) 60 Mg Tablet, 60 MG PO BID PRN for ALLERGIES, (Reported) Entered as Reported by: ANA LUISA NOVA on 03/01/19 1043 Gabapentin (Gabapentin) 600 Mg Tablet, 600 MG PO HS, (Reported) Entered as Reported by: MAI SEGOVIA on 05/24/18 0932 Granisetron (Sancuso) 1 Each Patch.tdwk, 1 PATCH TD Romero, (Reported) Entered as Reported by: MAI SEGOVIA on 05/24/18 0932 Loperamide HCl (Imodium A-D) 2 Mg Tablet, PO UD PRN for DIARRHEA, (Reported) Entered as Reported by: ANA LUISA NOVA on 03/01/19 1043 Losartan Potassium (Losartan Potassium) 100 Mg Tablet, 50 MG PO DAILY, (Reported) Entered as Reported by: ANA LUISA NOVA on 03/01/19 1236 Morphine Sulfate (Ms Contin) 30 Mg Tablet.er, 30 MG PO BID, (Reported) Entered as Reported by: ANA LUISA NOVA on 03/01/19 1043 Morphine Sulfate (Morphine Sulfate IR Tablet) 15 Mg Tablet, 15 MG PO TID PRN for PAIN-SEVERE (8-10), (Reported) Entered as Reported by: ANA LUISA NOVA on 03/01/19 1043 Naloxegol Oxalate (Movantik) 25 Mg Tablet, 25 MG PO SuMoWeThFrSa, (Reported) Entered as Reported by: MAI SEGOVIA on 05/24/18 0932 Ondansetron (Ondansetron Odt) 8 Mg Tab.rapdis, 8 MG PO TID PRN for NAUSEA/VOMITING-1ST LINE, (Reported) Entered as Reported by: ANA LUISA NOVA on 03/01/19 1044 Ondansetron (Ondansetron Odt) 8 Mg Tab.rapdis, 8 MG PO Q8H PRN for NAUSEA/VOMITING Prescribed by: AINSLEY ROYAL on 08/21/20 1233 Ondansetron (Ondansetron Odt) 4 Mg Tab.rapdis, 4 MG PO Q6H PRN for NAUSEA/VOMITING Prescribed by: ANA FERNANDEZ on 03/09/21 1131 Pantoprazole Sodium (Pantoprazole Sodium) 40 Mg Tablet.dr, 40 MG PO DAILY, (Reported) Entered as Reported by: MAI SEGOVIA on 05/24/18 0932 Phenazopyridine HCl (Azo Urinary Pain Relief) 97.5 Mg Tablet, 97.5 MG PO DAILY PRN for URINARY PAIN, (Reported) Entered as Reported by: ANA LUISA NOVA on 03/01/19 1043 Polyethylene Glycol 3350 (Miralax) 17 Gm Powd.pack, 17 GM PO Q2H PRN for CON STIPATION-2ND LINE, (Reported) Entered as Reported by: ANA LUISA NOVA on 03/01/19 1043 Potassium Chloride (Klor-Con M10) 10 Meq Tab.er.prt, 10 MEQ PO BID, (Reported) Entered as Reported by: MAI SEGOVIA on 05/24/18 0932 Potassium Chloride (Potassium Chloride) 10 Meq Capsule.er, 10 MEQ PO DAILY Prescribed by: NGOC Lewis ENYART on 09/27/21 0501 Potassium Phosphate,Monobasic (K-Phos Original) 500 Mg Tablet.alba, 1,000 MG PO BID, (Reported) Entered as Reported by: MAI SEGOVIA on 05/24/18 0932 Promethazine HCl (Promethazine Tablet) 25 Mg Tablet, 25 MG PO Q6H PRN for NAUSEA/VOMITING Prescribed by: LUIS ALBERTO TORRES on 07/02/21 1103 Promethazine HCl (Promethazine Suppository) 25 Mg Supp.rect, 25 MG RC Q6H PRN for NAUSEA/VOMITING-2ND LINE Prescribed by: NGOC Lewis ENYART on 09/27/21 0501 Rosuvastatin Calcium (Crestor) 10 Mg Tablet, 10 MG PO DAILY, (Reported) Entered as Reported by: ANA LUISA NOVA on 03/01/19 1012 Sennosides (Senokot) 8.6 Mg Tablet, 8.6 MG PO DAILY PRN for CONSTIPATION-5TH LINE, (Reported) Entered as Reported by: ANA LUISA NOVA on 03/01/19 1043 Temazepam (Temazepam) 15 Mg Capsule, 15 MG PO HS PRN for SLEEP, (Reported) Entered as Reported by: ANA LUISA NOVA on 03/01/19 1043 Thyroid,Pork ([place] Thyroid) 30 Mg Tablet, 30 MG PO DAILY, (Reported) Entered as Reported by: ANA LUISA NOVA on 03/01/19 1212 Tramadol HCl (Tramadol HCl) 50 Mg Tablet, 50 MG PO TID PRN for PAIN-MODERATE (5- 7), (Reported) Entered as Reported by: ANA LUISA NOVA on 03/01/19 1043 [[place]] , INJ WEDNESDAY, (Reported) Entered as Reported by: ANA LUISA NOVA on 03/01/19 1043 Review of Systems Review of Systems Constitutional: see HPI; No dizziness EENTM: No ear discharge, No hearing loss, No ear pain, No vision loss, No epistaxis, No nose congestion Respiratory: No cough, No short of breath Cardiovascular: No chest pain Gastrointestinal: No abdominal pain, No diarrhea; nausea, vomiting Genitourinary: decreased output Musculoskeletal: other (chronic muscle and bone pain from multiple myeloma) Skin: No rash Psychiatric/Neurological: Anxiety, Headache (diffuse severe headache ); Denies Numbness, Denies Paresthesia Hematologic/Lymphatic: Denies Easy Bleeding, Denies Easy Bruising Past Ddgrahr-Hqqvrb-Nbiinp Hx Patient Social History Tobacco Use?: No Use of E-Cig and/or Vaping dev: No Substance use?: No Alcohol Use?: No Pt feels they are or have been: No Immunizations Up To Date First/Initial COVID19 Vaccinat: unable to recall Second COVID19 Vaccination Luis: 05/2020 Third COVID19 Vaccination Date: yes Seasonal Allergies Seasonal Allergies: No Past Medical History Surgery/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 Surgeries: Yes (colon resection; stem cell transplant) Appendectomy, Bowel Surgery, Gallbladder, Hysterectomy Respiratory: No Cardiac: Yes Hypertension Neurological: No Genitourinary: Yes Bladder Infection Gastrointestinal: No Musculoskeletal: No Endocrine: No HEENT: No Cancer: Yes (blood cancer; light chain proteins, MULTIPLE MYELOMA) Psychosocial: No Integumentary: No Blood Disorders: Yes Family Medical History Cancer, Stroke Physical Exam Vital Signs Vital Signs - First Documented 09/27/21 03:00 Temp 36.4 Pulse 85 Resp 17 B/P (MAP) 179/97 (124) Pulse Ox 99 O2 Delivery Room Air Capillary Refill : Less Than 3 Seconds Height, Weight, BMI Height: 5'1.00" Weight: 127lbs. oz. 57.933224br; 21.00 BMI Method:Stated General Appearance: Anxious, Chronically ill HEENT: PERRL/EOMI; No Moist Mucous Membranes (slightly dry mucous membranes) Neck: Full Range of Motion, Normal Inspection, Non Tender, Supple Respiratory: Chest Non Tender, Lungs Clear, Normal Breath Sounds, No Accessory Muscle Use, No Respiratory Distress Cardiovascular: Regular Rate, Rhythm, Normal Peripheral Pulses Gastrointestinal: Normal Bowel Sounds, No Pulsatile Mass, Non Tender, Soft Rectal: Deferred Extremity: Normal Capillary Refill, Normal Inspection, No Pedal Edema Neurologic/Psychiatric: Alert, Oriented x3, 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 Norm as Tested Skin: Normal Color, Warm/Dry Progress/Results/Core Measures Suspected Sepsis SIRS Temperature: Pulse: 85 Respiratory Rate: 17 Laboratory Tests 09/27/21 03:10: White Blood Count 5.9 Blood Pressure 179 /97 Mean: 124 Laboratory Tests 09/27/21 03:10: Creatinine 1.12, Platelet Count 118L, Total Bilirubin 0.4 Results/Orders Lab Results Laboratory Tests Test 09/27/21 03:10 Range/Units White Blood Count 5.9 4.3-11.0 10^3/uL Red Blood Count 2.94 L 3.80-5.11 10^6/uL Hemoglobin 9.7 L 11.5-16.0 g/dL Hematocrit 29 L 35-52 % Mean Corpuscular Volume 98 80-99 fL Mean Corpuscular Hemoglobin 33 25-34 pg Mean Corpuscular Hemoglobin Concent 34 32-36 g/dL Red Cell Distribution Width 12.8 10.0-14.5 % Platelet Count 118 L 130-400 10^3/uL Mean Platelet Volume 10.7 9.0-12.2 fL Immature Granulocyte % (Auto) 1 % Neutrophils (%) (Auto) 72 42-75 % Lymphocytes (%) (Auto) 16 12-44 % Monocytes (%) (Auto) 11 0-12 % Eosinophils (%) (Auto) 0 0-10 % Basophils (%) (Auto) 0 0-10 % Neutrophils # (Auto) 4.3 1.8-7.8 10^3/uL Lymphocytes # (Auto) 0.9 L 1.0-4.0 10^3/uL Monocytes # (Auto) 0.6 0.0-1.0 10^3/uL Eosinophils # (Auto) 0.0 0.0-0.3 10^3/uL Basophils # (Auto) 0.0 0.0-0.1 10^3/uL Immature Granulocyte # (Auto) 0.0 0.0-0.1 10^3/uL Urine Color YELLOW Urine Clarity CLEAR Urine pH 7.5 5-9 Urine Specific [place] 1.010 L 1.016-1.022 Urine Protein 1+ H NEGATIVE Urine Glucose (UA) NEGATIVE NEGATIVE Urine Ketones NEGATIVE NEGATIVE Urine Nitrite NEGATIVE NEGATIVE Urine Bilirubin NEGATIVE NEGATIVE Urine Urobilinogen 0.2 < = 1.0 MG/DL Urine Leukocyte Esterase NEGATIVE NEGATIVE Urine RBC (Auto) TRACE-I H NEGATIVE Urine RBC NONE /HPF Urine WBC 2-5 /HPF Urine Squamous Epithelial Cells 5-10 /HPF Urine Crystals NONE /LPF Urine Bacteria MODERATE H /HPF Urine Casts NONE /LPF Urine Mucus NEGATIVE /LPF Urine Culture Indicated YES Sodium Level 142 135-145 MMOL/L Potassium Level 2.6 L 3.6-5.0 MMOL/L Chloride Level 109 H 98-107 MMOL/L Carbon Dioxide Level 19 L 21-32 MMOL/L Anion Gap 14 5-14 MMOL/L Blood Urea Nitrogen 14 7-18 MG/DL Creatinine 1.12 0.60-1.30 MG/DL Estimat Glomerular Filtration Rate 53 BUN/Creatinine Ratio 13 Glucose Level 99 70-105 MG/DL Calcium Level 8.5 8.5-10.1 MG/DL Corrected Calcium 8.8 8.5-10.1 MG/DL Total Bilirubin 0.4 0.1-1.0 MG/DL Aspartate Amino Transf (AST/SGOT) 11 5-34 U/L Alanine Aminotransferase (ALT/SGPT) 5 0-55 U/L Alkaline Phosphatase 53 40-136 U/L Total Protein 5.5 L 6.4-8.2 GM/DL Albumin 3.6 3.2-4.5 GM/DL Lipase 39 8-78 U/L My Orders Orders - NGOC CASTRO MD Comprehensive Metabolic Panel (09/27/21 03:08) Lipase (09/27/21 03:08) Ua Culture If Indicated (09/27/21 03:08) Ed Iv/Invasive Line Start (09/27/21 03:08) Cbc With Automated Diff (09/27/21 03:08) Implanted Port: Access (09/27/21 03:08) Ns Iv 1000 Ml (Sodium Chloride 0.9%) (09/27/21 03:12) Promethazine Injection (Phenergan Injec (09/27/21 03:12) Morphine Injection (Morphine Injection (09/27/21 03:12) Diphenhydramine Injection (Benadryl Inje (09/27/21 03:12) Pantoprazole Injection (Protonix Injecti (09/27/21 03:12) Urine Culture (09/27/21 03:10) Ns Iv 500 Ml (Sodium Chloride 0.9%) (09/27/21 03:58) Morphine Injection (Morphine Injection (09/27/21 04:09) Promethazine Injection (Phenergan Injec (09/27/21 04:09) Diphenhydramine Injection (Benadryl Inje (09/27/21 04:09) Potassium Cl 10meq/50ml Ivpb (Kcl 10 Meq (09/27/21 04:09) Potassium Cl 10meq/50ml Ivpb (Kcl 10 Meq (09/27/21 04:10) Heparin (Central Iv Flush) (Heparin (Yamil (09/27/21 05:02) Vital Signs/I&O 09/27/21 09/27/21 09/27/21 03:00 03:30 04:00 Temp 36.4 Pulse 85 90 87 Resp 17 17 15 B/P (MAP) 179/97 (124) 168/99 170/92 Pulse Ox 99 97 98 O2 Delivery Room Air Room Air Room Air Capillary Refill : Less Than 3 Seconds Blood Pressure Mean: 124 Progress Note #1: Progress Note Check basic labs and urinalysis. Give NS IVF 1 L bolus for hydration. 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 Since she has not kept any of her chronic opiate pain medicine down for over 2 days will give IV Morphine to try and help with withdrawal symptoms. Benadryl 12.5 mg IV to help with her headache and symptoms. Progress Note #2: Progress Note CBC stable anemia without elevated WBC count. Chemistry shows improved renal function but she does have hypokalemia with potassium 2.6. UA shows specific gravity 1.010 with moderate bacteria and trace LE. Pt reports nausea improved and headache down to 8/10. She denies UTI symptoms so will defer antibiotic for now and await urine culture. Patient demanding more medicine for her headache and nausea, even though she reports they are doing better. Repeat morphine for headache and opiate withdrawal, repeat phenergan with benadryl. Give additional 500 mL of NS for hydration along with 20 mEq of KCl through her port a cath. Pt resting in the room and appears to be feeling better. Progress Note #3: Progress Note patient refused further morphine for her headache. She has had no emesis here in the ED. Once the potassium and fluids have infused will plan on discharging to home. Departure Impression Primary Impression: Drug withdrawal headache Qualified Codes: F19.930 - Other psychoactive substance use, unspecified wi th withdrawal, uncomplicated Additional Impressions: Nausea and vomiting in adult patient Hypokalemia Disposition: 01 HOME, SELF-CARE Condition: Improved Departure-Patient Inst. Decision time for Depature: 05:02 Referrals: ANA LUISA BARRAGAN APRN (PCP) Primary Care Physician [facility] (Family) Primary Care Physician Patient Instructions: Drug Withdrawal ED, Headache, Adult ED, High Potassium Diet, Hypokalemia (DC), Nausea and Vomiting, Adult ED Add. Discharge Instructions: Keep sipping on fluids and stay hydrated. Take your medicines to help keep your pain under control Increase potassium in your diet and you could take potassium supplement to help improve your potassium levels. Check back with your regular providers about continued problems All discharge instructions reviewed with patient and/or family. Voiced underst anding. Scripts Potassium Chloride (Potassium Chloride) 10 Meq Capsule.er 10 MEQ PO DAILY for low potassium for 5 Days, #5 CAP 0 Refills Prov: NGOC CASTRO MD 09/27/21 Promethazine HCl (Promethazine Suppository) 25 Mg Supp.rect 25 MG RC Q6H PRN for NAUSEA/VOMITING-2ND LINE, #14 SUPP.RECT 0 Refills Prov: NGOC CASTRO MD 09/27/21 NGOC CASTRO MD Sep 27, 2021 03:19
[2021-09-27 03:21] LABS: BASOPHILS % (AUTO) 0 % (0-10); BILIRUBIN,URINE NEGATIVE (NEGATIVE); CLARITY,URINE CLEAR; COLOR,URINE YELLOW; EOSINOPHILS % (AUTO) 0 % (0-10); GLUCOSE, URINE (UA) NEGATIVE (NEGATIVE); HEMATOCRIT 29 % (35-52); HEMOGLOBIN 9.7 g/dL (11.5-16.0); KETONES,URINE NEGATIVE (NEGATIVE); LEUKOCYTE ESTERASE ,URINE NEGATIVE (NEGATIVE); LYMPHOCYTES # (AUTO) 0.9 10^3/uL (1.0-4.0); LYMPHOCYTES % (AUTO) 16 % (12-44); MEAN CORPUSCULAR HEMOGLOBIN 33 pg (25-34); MEAN CORPUSCULAR HGB CONC 34 g/dL (32-36); MEAN CORPUSCULAR VOLUME 98 fL (80-99); MEAN PLATELET VOLUME 10.7 fL (9.0-12.2); MONOCYTES # (AUTO) 0.6 10^3/uL (0.0-1.0); MONOCYTES % (AUTO) 11 % (0-12); NEUTROPHILS # (AUTO) 4.3 10^3/uL (1.8-7.8); NEUTROPHILS % (AUTO) 72 % (42-75); NITRITE,URINE NEGATIVE (NEGATIVE); PH,URINE 7.5 (5-9); PLATELET COUNT 118 10^3/uL (130-400); PROTEIN,URINE 1+ (NEGATIVE); WHITE BLOOD COUNT 5.9 10^3/uL (4.3-11.0)
[2021-09-27 03:27] LABS: BACTERIA,URINE MODERATE /HPF
[2021-09-27 03:45] LABS: CALCIUM 8.5 MG/DL (8.5-10.1); CREATININE SERUM 1.12 MG/DL (0.60-1.30); POTASSIUM 2.6 MMOL/L (3.6-5.0)
[2021-09-27 03:46] LABS: ALBUMIN 3.6 GM/DL (3.2-4.5); BILIRUBIN,TOTAL 0.4 MG/DL (0.1-1.0); TOTAL PROTEIN 5.5 GM/DL (6.4-8.2)
[2021-09-27] MEDS ORDERED: NS IV 500 ML 500 ML IV STA (03:58)
[2021-09-27] MEDS ORDERED: POTASSIUM CL 10MEQ/50ML IVPB 50 ML IV STA ×3 (03:58→04:10)
[2021-09-27] MEDS ORDERED: POTA10CA43 PO (05:01)
[2021-09-27] MEDS ORDERED: PROM25SU44 RC (05:01)
[2021-09-27] MEDS ORDERED: HEParin (CENTRAL IV FLUSH) 500 UNIT/5 ML SYR IV STA (05:02)
[2021-09-27 05:50] VITALS: BP 160/82
== END 2021-09-27 05:50 | disposition home or self-care (01) ==
LOC: EDUNIT# 02:59 → ER FS 03:02
DX: G44.40 Drug-induced headache, not elsewhere classified, not intractable (principal); E87.6 Hypokalemia; R11.2 Nausea with vomiting, unspecified; Z91.040 Latex allergy status
CPT/HCPCS: 36415; 80053; 81000; 83690; 85025; 87088; 93041

== ENCOUNTER 2021-11-15 15:02 | Emergency (ER) | payer MEDICARE, OTHER ==
[~2021-11-15] VITALS: Ht 154.9 cm; Wt 54.4 kg
[~2021-11-15 15:02] MED LIST changes: +POTA10CA43 PO
[2021-11-15] MEDS ORDERED: NS IV 1000 ML 1,000 ML IV STA (15:35)
[2021-11-15] MEDS ORDERED: PANTOPRAZOLE 40 MG (PROTONIX) VIAL IV STA (15:35)
[2021-11-15] MEDS ORDERED: PROMETHAZINE INJ 25 MG/ML (PHENERGAN) AMP IVP STA ×2 (15:35→16:56)
[2021-11-15 16:06] LABS: BASOPHILS % (AUTO) 0 % (0-10); EOSINOPHILS % (AUTO) 0 % (0-10); HEMATOCRIT 31 % (35-52); HEMOGLOBIN 10.6 g/dL (11.5-16.0); LYMPHOCYTES # (AUTO) 0.9 10^3/uL (1.0-4.0); LYMPHOCYTES % (AUTO) 15 % (12-44); MEAN CORPUSCULAR HEMOGLOBIN 33 pg (25-34); MEAN CORPUSCULAR HGB CONC 34 g/dL (32-36); MEAN CORPUSCULAR VOLUME 97 fL (80-99); MEAN PLATELET VOLUME 10.2 fL (9.0-12.2); MONOCYTES # (AUTO) 0.5 10^3/uL (0.0-1.0); MONOCYTES % (AUTO) 9 % (0-12); NEUTROPHILS # (AUTO) 4.6 10^3/uL (1.8-7.8); NEUTROPHILS % (AUTO) 76 % (42-75); PLATELET COUNT 103 10^3/uL (130-400)
--- NOTE | 2021-11-15 16:15 | ED GI ---
General Chief Complaint: Abdominal/GI Problems Stated Complaint: NAUSEA/VOMITING Nursing Triage Note: PT AMBULATE TO ROOM FS05 WITHOUT DIFFICULTY WITH C/O N/V SINCE WEDNESDAY. PT STATES SHE HAS BEEN UNABLE TO EAT OR DRINK WITHOUT VOMITING. Source of Information: Patient, Old Records History of Present Illness Date Seen by Provider: Nov 15, 2021 Time Seen by Provider: 15:09 Initial Comments 71-year-old female presenting with recurrent episode of nausea and vomiting. She states this is been present since . She has not been able to eat or drink or take any of her chronic medications since . She denies having severe headache or abdominal pain at this point. She gets chronic chemotherapy and has chronic issues with nausea and vomiting. She states that she was trying her suppositories at home but they were not helping. Since she was not able to keep anything down she came in since it has been 2 days. In the past on prior visits she had improved with IV fluids for hydration as well as Phenergan IV through her port Timing/Duration: 1-2 Days Activities at Onset: None Modifying Factors: Worsens With Eating Associated Symptoms: No Back Pain, No Chest Pain, No Diaphoresis, No Fever/Chills; Fatigue; No Headache, No Heartburn; Nausea/Vomiting; No Rash, No Shortness of Air, No Swelling/Mass in Abdomen, No Syncope, No Weakness Allergies and Home Medications Allergies Coded Allergies: Sulfa (Sulfonamide Antibiotics) (Verified Allergy, Unknown, hives, 05/24/18) latex (Verified Allergy, Unknown, anaphylaxis, 05/24/18) midazolam (Verified Allergy, Unknown, 08/29/21) vancomycin (Verified Allergy, Unknown, hives, 05/24/18) Patient Home Medication List Home Medication List Reviewed: Yes ALPRAZolam (Xanax Tablet) 0.25 Mg Tablet, 0.25 MG PO TID PRN for ANXIETY, (Reported) Entered as Reported by: ANA LUISA NOVA on 03/01/19 1043 Acyclovir (Acyclovir) 400 Mg Tablet, 400 MG PO BID, (Reported) Entered as Reported by: MAI SEGOVIA on 05/24/18 0932 Amlodipine Besylate (Amlodipine Besylate) 5 Mg Tablet, 5 MG PO DAILY, (Reported) Entered as Reported by: MAI SEGOVIA on 05/24/18 0932 Apixaban (Eliquis) 5 Mg Tablet, 5 MG PO BID, (Reported) Entered as Reported by: ANA LUISA NOVA on 03/01/19 1220 Calcium Carbonate/Vitamin D3 (Os-Alan 500+D3 Caplet) 1 Each Tablet, 1 TAB PO BID, (Reported) Entered as Reported by: ANA LUISA NOVA on 03/01/19 1043 Cholecalciferol (Vitamin D3) (Vitamin D3) 2,000 Unit Tablet, 2,000 UNIT PO BID, (Reported) Entered as Reported by: ANA LUISA NOVA on 03/01/19 1043 Cyanocobalamin (Cyanocobalamin Injection) 1,000 Mcg/Ml Inj, 1,000 MCG IM UD, (Reported) Entered as Reported by: ANA LUISA NOVA on 03/01/19 1044 Diphenhydramine HCl (Benadryl) 25 Mg Capsule, 100 MG PO HS PRN for ITCHING, (Reported) Entered as Reported by: ANA LUISA NOVA on 03/01/19 1043 Docusate Sodium (Colace) 100 Mg Capsule, 200 MG PO HS PRN for CONSTIPATION-1ST LINE, (Reported) Entered as Reported by: ANA LUISA NOVA on 03/01/19 1043 Fexofenadine HCl (Emelia Allergy) 60 Mg Tablet, 60 MG PO BID PRN for ALLERGIES, (Reported) Entered as Reported by: ANA LUISA NOVA on 03/01/19 1043 Gabapentin (Gabapentin) 600 Mg Tablet, 600 MG PO HS, (Reported) Entered as Reported by: MAI SEGOVIA on 05/24/18 0932 Granisetron (Sancuso) 1 Each Patch.tdwk, 1 PATCH TD Romero, (Reported) Entered as Reported by: MAI SEGOVIA on 05/24/18 0932 Loperamide HCl (Imodium A-D) 2 Mg Tablet, PO UD PRN for DIARRHEA, (Reported) Entered as Reported by: ANA LUISA NOVA on 03/01/19 1043 Losartan Potassium (Losartan Potassium) 100 Mg Tablet, 50 MG PO DAILY, (Reported) Entered as Reported by: ANA LUISA NOVA on 03/01/19 1236 Morphine Sulfate (Ms Contin) 30 Mg Tablet.er, 30 MG PO BID, (Reported) Entered as Reported by: ANA LUISA NOVA on 03/01/19 1043 Morphine Sulfate (Morphine Sulfate IR Tablet) 15 Mg Tablet, 15 MG PO TID PRN for PAIN-SEVERE (8-10), (Reported) Entered as Reported by: ANA LUISA NOVA on 03/01/19 1043 Naloxegol Oxalate (Movantik) 25 Mg Tablet, 25 MG PO SuMoWeThFrSa, (Reported) Entered as Reported by: MAI SEGOVIA on 05/24/18 0932 Ondansetron (Ondansetron Odt) 8 Mg Tab.rapdis, 8 MG PO TID PRN for NAUSEA/VOMITING-1ST LINE, (Reported) Entered as Reported by: ANA LUISA NOVA on 03/01/19 1044 Ondansetron (Ondansetron Odt) 8 Mg Tab.rapdis, 8 MG PO Q8H PRN for NAUSEA/VOMITING Prescribed by: AINSLEY ROYAL on 08/21/20 1233 Ondansetron (Ondansetron Odt) 4 Mg Tab.rapdis, 4 MG PO Q6H PRN for NAUSEA/VOMITING Prescribed by: ANA FERNANDEZ on 03/09/21 1131 Pantoprazole Sodium (Pantoprazole Sodium) 40 Mg Tablet.dr, 40 MG PO DAILY, (Reported) Entered as Reported by: MAI SEGOVIA on 05/24/18 0932 Phenazopyridine HCl (Azo Urinary Pain Relief) 97.5 Mg Tablet, 97.5 MG PO DAILY PRN for URINARY PAIN, (Reported) Entered as Reported by: ANA LUISA NOVA on 03/01/19 1043 Polyethylene Glycol 3350 (Miralax) 17 Gm Powd.pack, 17 GM PO Q2H PRN for CONSTIPATION-2ND LINE, (Reported) Entered as Reported by: ANA LUISA NOVA on 03/01/19 1043 Potassium Chloride (Klor-Con M10) 10 Meq Tab.er.prt, 10 MEQ PO BID, (Reported) Entered as Reported by: MAI SEGOVIA on 05/24/18 0932 Potassium Chloride (Potassium Chloride) 10 Meq Capsule.er, 10 MEQ PO DAILY Prescribed by: NGOC CASTRO on 09/27/21 0501 Potassium Phosphate,Monobasic (K-Phos Original) 500 Mg Tablet.alba, 1,000 MG PO BID, (Reported) Entered as Reported by: MAI SEGOVIA on 05/24/18 0932 Promethazine HCl (Promethazine Tablet) 25 Mg Tablet, 25 MG PO Q6H PRN for NAUSEA/VOMITING Prescribed by: LUIS ALBERTO TORRES on 07/02/21 1103 Promethazine HCl (Promethazine Suppository) 25 Mg Supp.rect, 25 MG RC Q6H PRN for NAUSEA/VOMITING-2ND LINE Prescribed by: NGOC CASTRO on 09/27/21 0501 Rosuvastatin Calcium (Crestor) 10 Mg Tablet, 10 MG PO DAILY, (Reported) Entered as Reported by: ANA LUISA NOVA on 03/01/19 1012 Sennosides (Senokot) 8.6 Mg Tablet, 8.6 MG PO DAILY PRN for CONSTIPATION-5TH LINE, (Reported) Entered as Reported by: ANA LUISA NOVA on 03/01/19 1043 Temazepam (Temazepam) 15 Mg Capsule, 15 MG PO HS PRN for SLEEP, (Reported) Entered as Reported by: ANA LUISA NOVA on 03/01/19 1043 Thyroid,Pork ([place] Thyroid) 30 Mg Tablet, 30 MG PO DAILY, (Reported) Entered as Reported by: ANA LUISA NOVA on 03/01/19 1212 Tramadol HCl (Tramadol HCl) 50 Mg Tablet, 50 MG PO TID PRN for PAIN-MODERATE (5- 7), (Reported) Entered as Reported by: ANA LUISA NOVA on 03/01/19 1043 [[place]] , INJ WEDNESDAY, (Reported) Entered as Reported by: ANA LUISA NOVA on 03/01/19 1043 Review of Systems Review of Systems Constitutional: No chills; dizziness (Especially with standing); No fever EENTM: No Symptoms Reported Respiratory: No Symptoms Reported Cardiovascular: No Symptoms Reported Gastrointestinal: See HPI Genitourinary: Denies Burning Musculoskeletal: no symptoms reported Skin: No rash Psychiatric/Neurological: No Symptoms Reported Endocrine: No Symptoms Reported Hematologic/Lymphatic: No Symptoms Reported Past Mllwncg-Uygulp-Uurkdk Hx Patient Social History Tobacco Use?: No Smoking Status: Never a Smoker Smokeless Tobacco Frequency: Never a User Use of E-Cig and/or Vaping dev: No Use of E-Cig and/or Vaping Siddhartha: Never a User Substance use?: No Alcohol Use?: No Pt feels they are or have been: No Immunizations Up To Date First/Initial COVID19 Vaccinat: unable to recall Second COVID19 Vaccination Luis: 05/2020 Third COVID19 Vaccination Date: yes Seasonal Allergies Seasonal Allergies: No Past Medical History Surgery/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 Surgeries: Yes (colon resection; stem cell transplant) Appendectomy, Bowel Surgery, Gallbladder, Hysterectomy Respiratory: No Cardiac: Yes Hypertension Neurological: No Genitourinary: Yes Bladder Infection Gastrointestinal: No Musculoskeletal: No Endocrine: No HEENT: No Cancer: Yes (blood cancer; light chain proteins, MULTIPLE MYELOMA) Psychosocial: No Integumentary: No Blood Disorders: Yes Family Medical History Cancer, Stroke Physical Exam Vital Signs Vital Signs - First Documented 11/15/21 11/15/21 15:14 17:47 Temp 36.5 Pulse 92 Resp 18 B/P (MAP) 151/96 (114) Pulse Ox 99 O2 Delivery Room Air Capillary Refill : Less Than 3 Seconds Height/Weight/BMI Height: 5'1.00" Weight: 127lbs. oz. [id number]; 22.00 BMI Method:Stated General Appearance: mild distress, other (Chronically ill-appearing) HEENT: PERRL/EOMI, pharynx normal Neck: non-tender, full range of motion, supple, normal inspection Respiratory: chest non-tender, lungs clear, normal breath sounds, no respiratory distress, no accessory muscle use Cardiovascular: normal peripheral pulses, regular rate, rhythm Gastrointestinal: normal bowel sounds, non tender, soft, no pulsatile mass Rectal: deferred Extremities: normal range of motion, non-tender, normal capillary refill Neurologic/Psychiatric: alert, oriented x 3 Skin: normal color, warm/dry Progress/Results/Core Measures Results/Orders Lab Results Laboratory Tests Test 11/15/21 15:55 11/15/21 16:53 Range/Units White Blood Count 6.0 4.3-11.0 10^3/uL Red Blood Count 3.19 L 3.80-5.11 10^6/uL Hemoglobin 10.6 L 11.5-16.0 g/dL Hematocrit 31 L 35-52 % Mean Corpuscular Volume 97 80-99 fL Mean Corpuscular Hemoglobin 33 25-34 pg Mean Corpuscular Hemoglobin Concent 34 32-36 g/dL Red Cell Distribution Width 13.1 10.0-14.5 % Platelet Count 103 L 130-400 10^3/uL Mean Platelet Volume 10.2 9.0-12.2 fL Immature Granulocyte % (Auto) 0 % Neutrophils (%) (Auto) 76 H 42-75 % Lymphocytes (%) (Auto) 15 12-44 % Monocytes (%) (Auto) 9 0-12 % Eosinophils (%) (Auto) 0 0-10 % Basophils (%) (Auto) 0 0-10 % Neutrophils # (Auto) 4.6 1.8-7.8 10^3/uL Lymphocytes # (Auto) 0.9 L 1.0-4.0 10^3/uL Monocytes # (Auto) 0.5 0.0-1.0 10^3/uL Eosinophils # (Auto) 0.0 0.0-0.3 10^3/uL Basophils # (Auto) 0.0 0.0-0.1 10^3/uL Immature Granulocyte # (Auto) 0.0 0.0-0.1 10^3/uL Percent Immature Platelet Fraction 2.9 0.0-7.6 % Sodium Level 139 135-145 MMOL/L Potassium Level 3.5 L 3.6-5.0 MMOL/L Chloride Level 104 98-107 MMOL/L Carbon Dioxide Level 23 21-32 MMOL/L Anion Gap 12 5-14 MMOL/L Blood Urea Nitrogen 14 7-18 MG/DL Creatinine 1.48 H 0.60-1.30 MG/DL Estimat Glomerular Filtration Rate 38 BUN/Creatinine Ratio 9 Glucose Level 85 70-105 MG/DL Calcium Level 9.4 8.5-10.1 MG/DL Corrected Calcium 9.5 8.5-10.1 MG/DL Total Bilirubin 0.5 0.1-1.0 MG/DL Aspartate Amino Transf (AST/SGOT) 13 5-34 U/L Alanine Aminotransferase (ALT/SGPT) 6 0-55 U/L Alkaline Phosphatase 63 40-136 U/L Total Protein 6.3 L 6.4-8.2 GM/DL Albumin 3.9 3.2-4.5 GM/DL Lipase 23 8-78 U/L Urine Color YELLOW Urine Clarity CLEAR Urine pH 8.0 5-9 Urine Specific [place] 1.010 L 1.016-1.022 Urine Protein TRACE H NEGATIVE Urine Glucose (UA) NEGATIVE NEGATIVE Urine Ketones NEGATIVE NEGATIVE Urine Nitrite NEGATIVE NEGATIVE Urine Bilirubin NEGATIVE NEGATIVE Urine Urobilinogen 0.2 < = 1.0 MG/DL Urine Leukocyte Esterase NEGATIVE NEGATIVE Urine RBC (Auto) NEGATIVE NEGATIVE Urine RBC 2-5 H /HPF Urine WBC 0-2 /HPF Urine Squamous Epithelial Cells 10-25 H /HPF Urine Crystals NONE /LPF Urine Bacteria FEW H /HPF Urine Casts NONE /LPF Urine Mucus NEGATIVE /LPF Urine Culture Indicated NO My Orders Orders - NGOC CASTRO MD Comprehensive Metabolic Panel (11/15/21 15:35) Lipase (11/15/21 15:35) Ua Culture If Indicated (11/15/21 15:35) Ed Iv/Invasive Line Start (11/15/21 15:35) Cbc With Automated Diff (11/15/21 15:35) Implanted Port: Access (11/15/21 15:35) Implanted Port: Ok To Use (11/15/21 15:35) Ns Iv 1000 Ml (Sodium Chloride 0.9%) (11/15/21 15:35) Promethazine Injection (Phenergan Injec (11/15/21 15:35) Pantoprazole Injection (Protonix Injecti (11/15/21 15:35) Promethazine Injection (Phenergan Injec (11/15/21 16:56) Heparin (Central Iv Flush) (Heparin (Yamil (11/15/21 17:29) Vital Signs/I&O 11/15/21 11/15/21 15:14 17:47 Temp 36.5 36.7 Pulse 92 79 Resp 18 16 B/P (MAP) 151/96 (114) 129/67 Pulse Ox 99 O2 Delivery Room Air Room Air Blood Pressure Mean: 114 Progress Progress Note #1: Progress Note Access for implanted port and obtain basic labs. Give normal saline 1 L IV fluid bolus for hydration, Phenergan 25 mg IV for nausea and vomiting. Protonix 40 mg IV for gastritis and nausea vomiting. We will try to get to the point where she can take some oral intake and take her regular medicines as well as tolerate oral fluids and hydration at home. Try to obtain a urine specimen if she is able to urinate after the IV fluids. Progress Note #2: Progress Note Labs show stable CBC and chemistry. She does have mild elevation of her creatinine to 1.4. Her potassium is at the lower limit of normal at 3.5. Her urinalysis was clear of signs of infection. Patient stated that she was feeling better after the initial dose of Phenergan and IV fluids. She did request some additional nausea medicine and try ice chips to see if she could go home. Progress Note #3: Progress Note Patient was tolerating ice chips and asking to go home. Encouraged to continue on her medicines at home and follow-up through the clinic for continued concerns Departure Impression Primary Impression: Nausea and vomiting in adult Disposition: 01 HOME, SELF-CARE Condition: Stable Departure-Patient Inst. Decision time for Depature: 17:26 Referrals: ANA LUISA BARRAGAN APRN (PCP) Primary Care Physician [facility] (Family) Primary Care Physician Patient Instructions: Nausea and Vomiting, Adult ED Add. Discharge Instructions: Continue with your medicines at home. Keep sipping on fluids and try to stay hydrated All discharge instructions reviewed with patient and/or family. Voiced understanding. NGOC CASTRO MD Nov 15, 2021 16:15
[2021-11-15 16:33] LABS: ALBUMIN 3.9 GM/DL (3.2-4.5); BILIRUBIN,TOTAL 0.5 MG/DL (0.1-1.0); CALCIUM 9.4 MG/DL (8.5-10.1); CREATININE SERUM 1.48 MG/DL (0.60-1.30); POTASSIUM 3.5 MMOL/L (3.6-5.0); TOTAL PROTEIN 6.3 GM/DL (6.4-8.2)
[2021-11-15 16:57] LABS: BILIRUBIN,URINE NEGATIVE (NEGATIVE); CLARITY,URINE CLEAR; COLOR,URINE YELLOW; GLUCOSE, URINE (UA) NEGATIVE (NEGATIVE); KETONES,URINE NEGATIVE (NEGATIVE); LEUKOCYTE ESTERASE ,URINE NEGATIVE (NEGATIVE); NITRITE,URINE NEGATIVE (NEGATIVE); PROTEIN,URINE TRACE (NEGATIVE)
[2021-11-15 17:00] LABS: BACTERIA,URINE FEW /HPF; WBC,URINE 0-2 /HPF
[2021-11-15] MEDS ORDERED: HEParin (CENTRAL IV FLUSH) 500 UNIT/5 ML SYR IV STA (17:29)
[2021-11-15 17:47] VITALS: BP 129/67
== END 2021-11-15 17:47 | disposition home or self-care (01) ==
LOC: EDUNIT# 15:02 → ER FS 15:04
DX: R11.2 Nausea with vomiting, unspecified (principal); R94.4 Abnormal results of kidney function studies; Z91.040 Latex allergy status
CPT/HCPCS: 36415; 80053; 81000; 83690; 85025

== ENCOUNTER 2022-03-06 16:54 | Emergency (ER) | payer MEDICARE, OTHER ==
[~2022-03-06] VITALS: Ht 152.4 cm; Wt 51.6 kg
[~2022-03-06 16:54] MED LIST changes: -POTA10CA43 PO; +POTA10CA44 PO
[2022-03-06] MEDS ORDERED: PROMETHAZINE INJ 25 MG/ML (PHENERGAN) AMP IVP STA (17:07)
[2022-03-06] MEDS ORDERED: PANTOPRAZOLE 40 MG (PROTONIX) VIAL IV STA (17:07)
[2022-03-06] MEDS ORDERED: NS IV 1000 ML 1,000 ML IV STA (17:07)
[2022-03-06] MEDS ORDERED: morphine INJ 10 MG/ML 1ML (SYR OR VIAL) IVP STA ×2 (17:07→18:45)
[2022-03-06 17:26] LABS: BASOPHILS % (AUTO) 0 % (0-10); EOSINOPHILS % (AUTO) 0 % (0-10); HEMATOCRIT 36 % (35-52); HEMOGLOBIN 12.5 g/dL (11.5-16.0); LYMPHOCYTES # (AUTO) 0.6 10^3/uL (1.0-4.0); LYMPHOCYTES % (AUTO) 10 % (12-44); MEAN CORPUSCULAR HEMOGLOBIN 36 pg (25-34); MEAN CORPUSCULAR HGB CONC 35 g/dL (32-36); MEAN CORPUSCULAR VOLUME 103 fL (80-99); MEAN PLATELET VOLUME 9.7 fL (9.0-12.2); MONOCYTES # (AUTO) 0.4 10^3/uL (0.0-1.0); MONOCYTES % (AUTO) 6 % (0-12); NEUTROPHILS # (AUTO) 5.3 10^3/uL (1.8-7.8); NEUTROPHILS % (AUTO) 84 % (42-75); PLATELET COUNT 141 10^3/uL (130-400); WHITE BLOOD COUNT 6.3 10^3/uL (4.3-11.0)
[2022-03-06 17:50] LABS: ALBUMIN 4.1 GM/DL (3.2-4.5); BILIRUBIN,TOTAL 0.5 MG/DL (0.1-1.0); CALCIUM 9.6 MG/DL (8.5-10.1); CREATININE SERUM 1.36 MG/DL (0.60-1.30); POTASSIUM 3.6 MMOL/L (3.6-5.0); TOTAL PROTEIN 6.5 GM/DL (6.4-8.2)
--- NOTE | 2022-03-06 17:59 | ED GI ---
General Chief Complaint: Abdominal/GI Problems Stated Complaint: VOMITING Nursing Triage Note: Patient states she has had nausea/vomiting/diarrhea since Wednesday. She states she used a phenergan suppository at home, but it has not helped. She denies any urinary symptoms. Source of Information: Patient History of Present Illness Date Seen by Provider: Mar 06, 2022 Time Seen by Provider: 16:58 Initial Comments 71-year-old female presenting with recurrent nausea, vomiting, diarrhea since Wednesday. She states that she tried using a Phenergan suppository at home but it was not helping. She does not have any pain or burning with urination. She denies seeing any blood in her vomit or diarrhea. She has not kept any of her chronic pain medicine down since Wednesday. She had a headache from not taking her chronic pain medicine. She has recurrent episodes of nausea and vomiting and diarrhea in the past due to her chemotherapy that she gets. She came into the emergency department today since she was not able to keep anything down at home for the last 2 days. She denies fever, chills, pain with urination, cough, shortness of breath, nasal congestion, sore throat. Timing/Duration: 1-2 Days Severity/Quality: Mild, Aching (Abdominal) Location: Generalized Abdomen Modifying Factors: Worsens With Eating Associated Symptoms: No Back Pain, No Chest Pain, No Diaphoresis, No Fever/Chills; Fatigue, Headache; No Heartburn; Nausea/Vomiting; No Rash, No Shortness of Air, No Swelling/Mass in Abdomen, No Syncope, No Weakness Allergies and Home Medications Allergies Coded Allergies: Sulfa (Sulfonamide Antibiotics) (Verified Allergy, Unknown, hives, 05/24/18) latex (Verified Allergy, Unknown, anaphylaxis, 05/24/18) midazolam (Verified Allergy, Unknown, 08/29/21) vancomycin (Verified Allergy, Unknown, hives, 05/24/18) Patient Home Medication List Home Medication List Reviewed: Yes ALPRAZolam (Xanax Tablet) 0.25 Mg Tablet, 0.25 MG PO TID PRN for ANXIETY, (Reported) Entered as Reported by: ANA LUISA NOVA on 03/01/19 1043 Acyclovir (Acyclovir) 400 Mg Tablet, 400 MG PO BID, (Reported) Entered as Reported by: MAI SEGOVIA on 05/24/18 0932 Amlodipine Besylate (Amlodipine Besylate) 5 Mg Tablet, 5 MG PO DAILY, (Reported) Entered as Reported by: MAI SEGOVIA on 05/24/18 0932 Apixaban (Eliquis) 5 Mg Tablet, 5 MG PO BID, (Reported) Entered as Reported by: ANA LUISA NOVA on 03/01/19 1220 Calcium Carbonate/Vitamin D3 (Os-Alan 500+D3 Caplet) 1 Each Tablet, 1 TAB PO BID, (Reported) Entered as Reported by: ANA LUISA NOVA on 03/01/19 1043 Cholecalciferol (Vitamin D3) (Vitamin D3) 2,000 Unit Tablet, 2,000 UNIT PO BID, (Reported) Entered as Reported by: ANA LUISA NOVA on 03/01/19 1043 Cyanocobalamin (Cyanocobalamin Injection) 1,000 Mcg/Ml Inj, 1,000 MCG IM UD, (Reported) Entered as Reported by: ANA LUISA NOVA on 03/01/19 1044 Diphenhydramine HCl (Benadryl) 25 Mg Capsule, 100 MG PO HS PRN for ITCHING, (R eported) Entered as Reported by: ANA LUISA NOVA on 03/01/19 1043 Docusate Sodium (Colace) 100 Mg Capsule, 200 MG PO HS PRN for CONSTIPATION-1ST LINE, (Reported) Entered as Reported by: ANA LUISA NOVA on 03/01/19 1043 Fexofenadine HCl (Emelia Allergy) 60 Mg Tablet, 60 MG PO BID PRN for ALLERGIES, (Reported) Entered as Reported by: ANA LUISA NOVA on 03/01/19 1043 Gabapentin (Gabapentin) 600 Mg Tablet, 600 MG PO HS, (Reported) Entered as Reported by: MAI SEGOVIA on 05/24/18 0932 Granisetron (Sancuso) 1 Each Patch.tdwk, 1 PATCH TD Romero, (Reported) Entered as Reported by: MAI SEGOVIA on 05/24/18 0932 Loperamide HCl (Imodium A-D) 2 Mg Tablet, PO UD PRN for DIARRHEA, (Reported) Entered as Reported by: ANA LUISA NOVA on 03/01/19 1043 Losartan Potassium (Losartan Potassium) 100 Mg Tablet, 50 MG PO DAILY, (Rep orted) Entered as Reported by: ANA LUISA NOVA on 03/01/19 1236 Morphine Sulfate (Ms Contin) 30 Mg Tablet.er, 30 MG PO BID, (Reported) Entered as Reported by: ANA LUISA NOVA on 03/01/19 1043 Morphine Sulfate (Morphine Sulfate IR Tablet) 15 Mg Tablet, 15 MG PO TID PRN for PAIN-SEVERE (8-10), (Reported) Entered as Reported by: ANA LUISA NOVA on 03/01/19 1043 Naloxegol Oxalate (Movantik) 25 Mg Tablet, 25 MG PO SuMoWeThFrSa, (Reported) Entered as Reported by: MAI SEGOVIA on 05/24/18 0932 Ondansetron (Ondansetron Odt) 8 Mg Tab.rapdis, 8 MG PO TID PRN for NAUSEA/VOMITING-1ST LINE, (Reported) Entered as Reported by: ANA LUISA NOVA on 03/01/19 1044 Ondansetron (Ondansetron Odt) 8 Mg Tab.rapdis, 8 MG PO Q8H PRN for NAUSEA/VOMITING Prescribed by: AINSLEY RYOAL on 08/21/20 1233 Ondansetron (Ondansetron Odt) 4 Mg Tab.rapdis, 4 MG PO Q6H PRN for NAUSEA/VOMITING Prescribed by: ANA FERNANDEZ on 03/09/21 1131 Pantoprazole Sodium (Pantoprazole Sodium) 40 Mg Tablet.dr, 40 MG PO DAILY, (Reported) Entered as Reported by: MAI SEGOVIA on 05/24/18 0932 Phenazopyridine HCl (Azo Urinary Pain Relief) 97.5 Mg Tablet, 97.5 MG PO DAILY PRN for URINARY PAIN, (Reported) Entered as Reported by: ANA LUISA NOVA on 03/01/19 1043 Polyethylene Glycol 3350 (Miralax) 17 Gm Powd.pack, 17 GM PO Q2H PRN for CONSTIPATION-2ND LINE, (Reported) Entered as Reported by: ANA LUISA NOVA on 03/01/19 1043 Potassium Chloride (Klor-Con M10) 10 Meq Tab.er.prt, 10 MEQ PO BID, (Reported) Entered as Reported by: MAI SEGOVIA on 05/24/18 0932 Potassium Chloride (Potassium Chloride) 10 Meq Capsule.er, 10 MEQ PO DAILY Prescribed by: NGOC Lewis ENYART on 09/27/21 0501 Potassium Phosphate,Monobasic (K-Phos Original) 500 Mg Tablet.alba, 1,000 MG PO BID, (Reported) Entered as Reported by: MAI SEGOVIA on 05/24/18 0932 Promethazine HCl (Promethazine Tablet) 25 Mg Tablet, 25 MG PO Q6H PRN for NAUSEA/VOMITING Prescribed by: LUIS ALBERTO TORRES on 07/02/21 1103 Promethazine HCl (Promethazine Suppository) 25 Mg Supp.rect, 25 MG RC Q6H PRN for NAUSEA/VOMITING-2ND LINE Prescribed by: NGOC Lewis ENYART on 09/27/21 0501 Rosuvastatin Calcium (Crestor) 10 Mg Tablet, 10 MG PO DAILY, (Reported) Entered as Reported by: ANA LUISA NOVA on 03/01/19 1012 Sennosides (Senokot) 8.6 Mg Tablet, 8.6 MG PO DAILY PRN for CONSTIPATION-5TH LINE, (Reported) Entered as Reported by: ANA LUISA NOVA on 03/01/19 1043 Temazepam (Temazepam) 15 Mg Capsule, 15 MG PO HS PRN for SLEEP, (Reported) Entered as Reported by: ANA LUISA NOVA on 03/01/19 1043 Thyroid,Pork ([place] Thyroid) 30 Mg Tablet, 30 MG PO DAILY, (Reported) Entered as Reported by: ANA LUISA NOVA on 03/01/19 1212 Tramadol HCl (Tramadol HCl) 50 Mg Tablet, 50 MG PO TID PRN for PAIN-MODERATE (5- 7), (Reported) Entered as Reported by: ANA LUISA NOVA on 03/01/19 1043 [[place]] , INJ WEDNESDAY, (Reported) Entered as Reported by: ANA LUISA NOVA on 03/01/19 1043 Review of Systems Review of Systems Constitutional: No chills, No fever EENTM: No Symptoms Reported Respiratory: No Symptoms Reported Cardiovascular: No Symptoms Reported Gastrointestinal: See HPI Genitourinary: No Symptoms Reported Musculoskeletal: no symptoms reported Skin: No rash Psychiatric/Neurological: Headache Past Gwgyfdr-Wwrfhv-Efjcnw Hx Patient Social History Tobacco Use?: No Substance use?: No Alcohol Use?: No Pt feels they are or have been: No Immunizations Up To Date First/Initial COVID19 Vaccinat: pt unable to recall which one Second COVID19 Vaccination Luis: pt unable to recall which one Third COVID19 Vaccination Date: pt unable to recall which one Seasonal Allergies Seasonal Allergies: No Past Medical History Surgery/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 Surgeries: Yes (colon resection; stem cell transplant) Appendectomy, Bowel Surgery, Gallbladder, Hysterectomy Respiratory: No Cardiac: Yes Hypertension Neurological: No Genitourinary: Yes Bladder Infection Gastrointestinal: No Musculoskeletal: No Endocrine: No HEENT: No Cancer: Yes (blood cancer; light chain proteins, MULTIPLE MYELOMA) Psychosocial: No Integumentary: No Blood Disorders: Yes Family Medical History Cancer, Stroke Physical Exam Vital Signs Vital Signs - First Documented 03/06/22 17:02 Temp 35.8 Pulse 107 Resp 16 B/P (MAP) 127/85 (99) Pulse Ox 98 O2 Delivery Room Air Capillary Refill : Less Than 3 Seconds Height/Weight/BMI Height: 5'1.00" Weight: 127lbs. oz. [id number]; 22.00 BMI Method:Stated General Appearance: no apparent distress, other (appears to not feel well) HEENT: PERRL/EOMI; No pharynx normal (slightly dry mucus membranes) Neck: non-tender, full range of motion, supple, normal inspection Respiratory: chest non-tender, lungs clear, normal breath sounds, no respiratory distress, no accessory muscle use Cardiovascular: normal peripheral pulses, regular rate, rhythm Gastrointestinal: normal bowel sounds, soft, no pulsatile mass; No distended, No guarding, No rebound; tenderness (mild diffuse aching in abdomen that is worse with palpation) Rectal: deferred Extremities: normal range of motion, non-tender, normal capillary refill Neurologic/Psychiatric: alert, oriented x 3 Skin: normal color, warm/dry Progress/Results/Core Measures Results/Orders Lab Results Laboratory Tests Test 03/06/22 17:20 Range/Units White Blood Count 6.3 4.3-11.0 10^3/uL Red Blood Count 3.49 L 3.80-5.11 10^6/uL Hemoglobin 12.5 11.5-16.0 g/dL Hematocrit 36 35-52 % Mean Corpuscular Volume 103 H 80-99 fL Mean Corpuscular Hemoglobin 36 H 25-34 pg Mean Corpuscular Hemoglobin Concent 35 32-36 g/dL Red Cell Distribution Width 13.3 10.0-14.5 % Platelet Count 141 130-400 10^3/uL Mean Platelet Volume 9.7 9.0-12.2 fL Immature Granulocyte % (Auto) 0 % Neutrophils (%) (Auto) 84 H 42-75 % Lymphocytes (%) (Auto) 10 L 12-44 % Monocytes (%) (Auto) 6 0-12 % Eosinophils (%) (Auto) 0 0-10 % Basophils (%) (Auto) 0 0-10 % Neutrophils # (Auto) 5.3 1.8-7.8 10^3/uL Lymphocytes # (Auto) 0.6 L 1.0-4.0 10^3/uL Monocytes # (Auto) 0.4 0.0-1.0 10^3/uL Eosinophils # (Auto) 0.0 0.0-0.3 10^3/uL Basophils # (Auto) 0.0 0.0-0.1 10^3/uL Immature Granulocyte # (Auto) 0.0 0.0-0.1 10^3/uL Sodium Level 136 135-145 MMOL/L Potassium Level 3.6 3.6-5.0 MMOL/L Chloride Level 101 98-107 MMOL/L Carbon Dioxide Level 21 21-32 MMOL/L Anion Gap 14 5-14 MMOL/L Blood Urea Nitrogen 15 7-18 MG/DL Creatinine 1.36 H 0.60-1.30 MG/DL Estimat Glomerular Filtration Rate 42 BUN/Creatinine Ratio 11 Glucose Level 107 H 70-105 MG/DL Calcium Level 9.6 8.5-10.1 MG/DL Corrected Calcium 9.5 8.5-10.1 MG/DL Total Bilirubin 0.5 0.1-1.0 MG/DL Aspartate Amino Transf (AST/SGOT) 13 5-34 U/L Alanine Aminotransferase (ALT/SGPT) 13 0-55 U/L Alkaline Phosphatase 68 40-136 U/L Total Protein 6.5 6.4-8.2 GM/DL Albumin 4.1 3.2-4.5 GM/DL Lipase 24 8-78 U/L My Orders Orders - NGOC CASTRO MD Comprehensive Metabolic Panel (03/06/22 17:06) Lipase (03/06/22 17:06) Ed Iv/Invasive Line Start (03/06/22 17:06) Cbc With Automated Diff (03/06/22 17:06) Implanted Port: Access (03/06/22 17:06) Ns Iv 1000 Ml (Sodium Chloride 0.9%) (03/06/22 17:07) Morphine Injection (Morphine Injection (03/06/22 17:07) Pantoprazole Injection (Protonix Injecti (03/06/22 17:07) Promethazine Injection (Phenergan Injec (03/06/22 17:07) Ondansetron Injection (Zofran Injectio (03/06/22 18:08) Morphine Injection (Morphine Injection (03/06/22 18:45) Heparin (Central Iv Flush) (Heparin (Yamil (03/06/22 19:39) Vital Signs/I&O 03/06/22 03/06/22 17:02 19:44 Temp 35.8 Pulse 107 76 Resp 16 16 B/P (MAP) 127/85 (99) 100/68 Pulse Ox 98 96 O2 Delivery Room Air Room Air Blood Pressure Mean: 99 Progress Progress Note #1: Progress Note Potential diagnosis of gastroenteritis, opiate withdrawal, chemotherapy induced nausea and vomiting, electrolyte imbalance, gastritis, colitis, diverticulitis. We will access patient's port and check basic labs. Obtain CBC, chemistry, lipase. Administer normal saline 1 L IV fluid bolus for hydration, from review of her prior ER visits will administer Phenergan 25 mg through her port, morphine 10 mg IV through her port, pantoprazole 40 mg IV through her port. These medicines will be helpful for her nausea and vomiting as well as opiate withdrawal and headache and the pantoprazole will help with gastritis and stomach irritation. Progress Note #2: Progress Note On recheck of the patient she reports that she was doing a little better after the medicine. She felt like her headache was not as severe. She did not feel like she needed any additional pain medicine right now but might before she leaves. I reassured her that the blood count and chemistry panel including renal function all of the improved are stable for her. She did not show any low potassium or signs of worsening renal insufficiency. Her white blood cell count was normal and she had hemoglobin up to 12.5. Patient stated that she was still feeling nauseated although she has had no vomiting here in the ED. Will try a dose of Zofran since she has already had 25 mg of Phenergan IV. Will try some ice chips to see if she could keep things down and check back with her after she has had more for fluids infused. She states that she cannot have the fluids faster than 500 mils an hour based on recommendations from the kidney doctor that she had. Progress Note #3: Time: 18:44 Progress Note Patient called out to nurses station stating she felt like she needed the additional pain medicine for her headache and wanted to try some ice chips. Progress Note #4: Progress Note On recheck after her additional pain shot of Morphine 10 mg IV and the fluids finished she felt she was ready to go home. She had kept down ice chips here and has had no emesis in the ED as well as no diarrhea. Encouraged to continue on home medications. She denies needing any refills of nausea medicine. Encouraged to check with clinic if not improved by Wednesday and return if worsens over the weekend despite restarting her home medicine. Departure Impression Primary Impression: Nausea vomiting and diarrhea Additional Impression: Dehydration Disposition: HOME, SELF-CARE Condition: Stable Departure-Patient Inst. Decision time for Depature: 19:44 Referrals: ANA LUISA BARRAGAN APRN (PCP) Primary Care Physician [facility] (Family) Primary Care Physician Patient Instructions: Nausea and Vomiting, Adult ED, Dehydration, Adult ED, Diarrhea, Adult ED Add. Discharge Instructions: Continue to try sipping on fluids to help with hydration. Use the nausea medicine to try to help keep your stomach settled so that he can take your chronic medications. Check back through the clinic if still having problems early next week. If worsening over the weekend then return to the emergency department. All discharge instructions reviewed with patient and/or family. Voiced unders tanding. NGOC CASTRO MD Mar 06, 2022 17:59
[2022-03-06] MEDS ORDERED: ONDANSETRON 4 MG/2 ML (SDV) Z0FRAN IVP STA (18:08)
[2022-03-06] MEDS ORDERED: HEParin (CENTRAL IV FLUSH) 500 UNIT/5 ML SYR IV STA (19:39)
[2022-03-06 19:44] VITALS: BP 100/68
== END 2022-03-06 19:49 | disposition home or self-care (01) ==
LOC: EDUNIT# 16:54 → ER FS 16:56
DX: R11.2 Nausea with vomiting, unspecified (principal); R19.7 Diarrhea, unspecified; E86.0 Dehydration; Z91.040 Latex allergy status
CPT/HCPCS: 36415; 80053; 83690; 85025; 99281

== ENCOUNTER 2022-03-29 15:28 | Emergency (ER) | payer MEDICARE, OTHER ==
[2022-03-29] MEDS ORDERED: PROMETHAZINE INJ 25 MG/ML (PHENERGAN) AMP IVP ONE (15:45)
[2022-03-29] MEDS ORDERED: NS IV 500 ML 500 ML IV ONE (15:45)
[2022-03-29 16:06] LABS: BASOPHILS % (AUTO) 0 % (0-10); EOSINOPHILS % (AUTO) 0 % (0-10); HEMATOCRIT 39 % (35-52); HEMOGLOBIN 13.9 g/dL (11.5-16.0); LYMPHOCYTES # (AUTO) 0.5 10^3/uL (1.0-4.0); LYMPHOCYTES % (AUTO) 7 % (12-44); MEAN CORPUSCULAR HEMOGLOBIN 37 pg (25-34); MEAN CORPUSCULAR HGB CONC 36 g/dL (32-36); MEAN CORPUSCULAR VOLUME 102 fL (80-99); MEAN PLATELET VOLUME 9.5 fL (9.0-12.2); MONOCYTES # (AUTO) 0.1 10^3/uL (0.0-1.0); MONOCYTES % (AUTO) 2 % (0-12); NEUTROPHILS # (AUTO) 7.1 10^3/uL (1.8-7.8); NEUTROPHILS % (AUTO) 91 % (42-75); PLATELET COUNT 157 10^3/uL (130-400); WHITE BLOOD COUNT 7.8 10^3/uL (4.3-11.0)
--- NOTE | 2022-03-29 16:12 | ED GI ---
General Chief Complaint: Abdominal/GI Problems Stated Complaint: VOMITING Nursing Triage Note: Patient presents to the ED with c/o vomiting. Reports she has been unable to keep anything down for the past 3 days. Has not been able to take her regular medications for the past 2 days. Zofran suppository done today. Reports it has not helped with her symptoms. Source of Information: Patient Exam Limitations: No Limitations History of Present Illness Date Seen by Provider: Mar 29, 2022 Time Seen by Provider: 15:33 Initial Comments 71-year-old female with past medical history of multiple myeloma on Velcade with chronic nausea and vomiting coming in due to 3 days of nonbloody nonbilious vomiting. Has had difficulty getting her regular medications down. Tried a Zofran suppository earlier today which did not help. Denies any severe abdominal pain, chest pain, shortness of breath, fever, chills, dysuria, diarrhea, weakness, numbness, or any other concerns Allergies and Home Medications Allergies Coded Allergies: Sulfa (Sulfonamide Antibiotics) (Verified Allergy, Unknown, hives, 05/24/18) latex (Verified Allergy, Unknown, anaphylaxis, 05/24/18) midazolam (Verified Allergy, Unknown, 08/29/21) vancomycin (Verified Allergy, Unknown, hives, 05/24/18) Patient Home Medication List Home Medication List Reviewed: Yes ALPRAZolam (Xanax Tablet) 0.25 Mg Tablet, 0.25 MG PO TID PRN for ANXIETY, (Reported) Entered as Reported by: ANA LUISA NOVA on 03/01/19 1043 Acyclovir (Acyclovir) 400 Mg Tablet, 400 MG PO BID, (Reported) Entered as Reported by: MAI SEGOVIA on 05/24/18 0932 Amlodipine Besylate (Amlodipine Besylate) 5 Mg Tablet, 5 MG PO DAILY, (Reported) Entered as Reported by: MAI SEGOVIA on 05/24/18 0932 Apixaban (Eliquis) 5 Mg Tablet, 5 MG PO BID, (Reported) Entered as Reported by: ANA LUISA NOVA on 03/01/19 1220 Calcium Carbonate/Vitamin D3 (Os-Alan 500+D3 Caplet) 1 Each Tablet, 1 TAB PO BID, (Reported) Entered as Reported by: ANA LUISA NOVA on 03/01/19 1043 Cholecalciferol (Vitamin D3) (Vitamin D3) 2,000 Unit Tablet, 2,000 UNIT PO BID, (Reported) Entered as Reported by: ANA LUISA NOVA on 03/01/19 1043 Cyanocobalamin (Cyanocobalamin Injection) 1,000 Mcg/Ml Inj, 1,000 MCG IM UD, (Reported) Entered as Reported by: ANA LUISA NOVA on 03/01/19 1044 Diphenhydramine HCl (Benadryl) 25 Mg Capsule, 100 MG PO HS PRN for ITCHING, (Reported) Entered as Reported by: ANA LUISA NOVA on 03/01/19 1043 Docusate Sodium (Colace) 100 Mg Capsule, 200 MG PO HS PRN for CONSTIPATION-1ST LINE, (Reported) Entered as Reported by: ANA LUISA NOVA on 03/01/19 1043 Fexofenadine HCl (Emelia Allergy) 60 Mg Tablet, 60 MG PO BID PRN for ALLERGIES, (Reported) Entered as Reported by: ANA LUISA NOVA on 03/01/19 1043 Gabapentin (Gabapentin) 600 Mg Tablet, 600 MG PO HS, (Reported) Entered as Reported by: MAI SEGOVIA on 05/24/18 0932 Granisetron (Sancuso) 1 Each Patch.tdwk, 1 PATCH TD Romero, (Reported) Entered as Reported by: MAI SEGOVIA on 05/24/18 0932 Loperamide HCl (Imodium A-D) 2 Mg Tablet, PO UD PRN for DIARRHEA, (Reported) Entered as Reported by: ANA LUISA NOVA on 03/01/19 1043 Losartan Potassium (Losartan Potassium) 100 Mg Tablet, 50 MG PO DAILY, (Reported) Entered as Reported by: ANA LUISA NOVA on 03/01/19 1236 Morphine Sulfate (Ms Contin) 30 Mg Tablet.er, 30 MG PO BID, (Reported) Entered as Reported by: ANA LUISA NOVA on 03/01/19 1043 Morphine Sulfate (Morphine Sulfate IR Tablet) 15 Mg Tablet, 15 MG PO TID PRN for PAIN-SEVERE (8-10), (Reported) Entered as Reported by: ANA LUISA NOVA on 03/01/19 1043 Naloxegol Oxalate (Movantik) 25 Mg Tablet, 25 MG PO SuMoWeThFrSa, (Reported) Entered as Reported by: MAI SEGOVIA on 05/24/18 0932 Ondansetron (Ondansetron Odt) 8 Mg Tab.rapdis, 8 MG PO TID PRN for NAUSEA/VOMITING-1ST LINE, (Reported) Entered as Reported by: ANA LUISA NOVA on 03/01/19 1044 Ondansetron (Ondansetron Odt) 8 Mg Tab.rapdis, 8 MG PO Q8H PRN for NAUSEA/VOMITING Prescribed by: AINSLEY ROYAL on 08/21/20 1233 Ondansetron (Ondansetron Odt) 4 Mg Tab.rapdis, 4 MG PO Q6H PRN for NAUSEA/VOMITING Prescribed by: ANA FERNANDEZ on 03/09/21 1131 Pantoprazole Sodium (Pantoprazole Sodium) 40 Mg Tablet.dr, 40 MG PO DAILY, (Reported) Entered as Reported by: MAI SEGOVIA on 05/24/18 0932 Phenazopyridine HCl (Azo Urinary Pain Relief) 97.5 Mg Tablet, 97.5 MG PO DAILY PRN for URINARY PAIN, (Reported) Entered as Reported by: ANA LUISA NOVA on 03/01/19 1043 Polyethylene Glycol 3350 (Miralax) 17 Gm Powd.pack, 17 GM PO Q2H PRN for CONSTIPATION-2ND LINE, (Reported) Entered as Reported by: ANA LUSIA NOVA on 03/01/19 1043 Potassium Chloride (Klor-Con M10) 10 Meq Tab.er.prt, 10 MEQ PO BID, (Reported) Entered as Reported by: MAI SEGOVIA on 05/24/18 0932 Potassium Chloride (Potassium Chloride) 10 Meq Capsule.er, 10 MEQ PO DAILY Prescribed by: NGOC CASTRO on 09/27/21 0501 Potassium Phosphate,Monobasic (K-Phos Original) 500 Mg Tablet.alba, 1,000 MG PO BID, (Reported) Entered as Reported by: MAI SEGOVIA on 05/24/18 0932 Promethazine HCl (Promethazine Tablet) 25 Mg Tablet, 25 MG PO Q6H PRN for NAUSEA/VOMITING Prescribed by: LUIS ALBERTO TORRES on 07/02/21 1103 Promethazine HCl (Promethazine Suppository) 25 Mg Supp.rect, 25 MG RC Q6H PRN for NAUSEA/VOMITING-2ND LINE Prescribed by: NGOC CASTRO on 09/27/21 0501 Promethazine HCl (Promethazine Suppository) 25 Mg Supp.rect, 25 MG RC Q8H PRN for NAUSEA/VOMITING-2ND LINE Prescribed by: LUIS ALBERTO TORRES on 03/29/22 1703 Rosuvastatin Calcium (Crestor) 10 Mg Tablet, 10 MG PO DAILY, (Reported) Entered as Reported by: ANA LUISA NOVA on 03/01/19 1012 Sennosides (Senokot) 8.6 Mg Tablet, 8.6 MG PO DAILY PRN for CONSTIPATION-5TH LINE, (Reported) Entered as Reported by: ANA LUISA NOVA on 03/01/19 1043 Temazepam (Temazepam) 15 Mg Capsule, 15 MG PO HS PRN for SLEEP, (Reported) Entered as Reported by: ANA LUISA NOVA on 03/01/19 1043 Thyroid,Pork ([place] Thyroid) 30 Mg Tablet, 30 MG PO DAILY, (Reported) Entered as Reported by: ANA LUISA NOVA on 03/01/19 1212 Tramadol HCl (Tramadol HCl) 50 Mg Tablet, 50 MG PO TID PRN for PAIN-MODERATE (5- 7), (Reported) Entered as Reported by: ANA LUISA NOVA on 03/01/19 1043 [Valcade] , INJ WEDNESDAY, (Reported) Entered as Reported by: ANA LUISA NOVA on 03/01/19 1043 Review of Systems Review of Systems Constitutional: No fever EENTM: No Symptoms Reported Respiratory: No Symptoms Reported Cardiovascular: No Symptoms Reported Gastrointestinal: See HPI Genitourinary: No Symptoms Reported Musculoskeletal: no symptoms reported Past Fsluekv-Wcrwec-Jqbnue Hx Patient Social History Tobacco Use?: No Use of E-Cig and/or Vaping dev: No Substance use?: No Alcohol Use?: No Pt feels they are or have been: No Immunizations Up To Date First/Initial COVID19 Vaccinat: pt unable to recall which one Second COVID19 Vaccination Luis: pt unable to recall which one Third COVID19 Vaccination Date: pt unable to recall which one Seasonal Allergies Seasonal Allergies: No Past Medical History 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 Surgeries: Yes (colon resection; stem cell transplant) Appendectomy, Bowel Surgery, Gallbladder, Hysterectomy Respiratory: No Cardiac: Yes Hypertension Neurological: No Genitourinary: Yes Bladder Infection Gastrointestinal: No Musculoskeletal: No Endocrine: No HEENT: No Cancer: Yes (blood cancer; light chain proteins, MULTIPLE MYELOMA) Psychosocial: No Integumentary: No Blood Disorders: Yes Family Medical History Cancer, Stroke Physical Exam Vital Signs Vital Signs - First Documented 03/29/22 15:35 Temp 36.0 Pulse 104 Resp 18 B/P (MAP) 142/82 (102) Pulse Ox 98 O2 Delivery Room Air Capillary Refill : Less Than 3 Seconds Height/Weight/BMI Height: 5'1.00" Weight: 127lbs. oz. 57.311548zd; 22.00 BMI Method:Stated General Appearance: WD/WN, no apparent distress HEENT: PERRL/EOMI, normal ENT inspection, pharynx normal Neck: non-tender, full range of motion, supple, normal inspection Respiratory: chest non-tender, lungs clear, normal breath sounds, no respiratory distress, no accessory muscle use Cardiovascular: regular rate, rhythm, no edema, no murmur Gastrointestinal: normal bowel sounds, non tender, soft; No distended, No gua rding, No rebound Extremities: normal range of motion, non-tender, normal inspection, no pedal edema, no calf tenderness, normal capillary refill Back: normal inspection, no CVA tenderness Neurologic/Psychiatric: no motor/sensory deficits, alert, normal mood/affect Skin: normal color, warm/dry Lymphatic: no adenopathy Progress/Results/Core Measures Results/Orders Lab Results Laboratory Tests Test 03/29/22 16:00 Range/Units White Blood Count 7.8 4.3-11.0 10^3/uL Red Blood Count 3.80 3.80-5.11 10^6/uL Hemoglobin 13.9 11.5-16.0 g/dL Hematocrit 39 35-52 % Mean Corpuscular Volume 102 H 80-99 fL Mean Corpuscular Hemoglobin 37 H 25-34 pg Mean Corpuscular Hemoglobin Concent 36 32-36 g/dL Red Cell Distribution Width 12.4 10.0-14.5 % Platelet Count 157 130-400 10^3/uL Mean Platelet Volume 9.5 9.0-12.2 fL Immature Granulocyte % (Auto) 0 % Neutrophils (%) (Auto) 91 H 42-75 % Lymphocytes (%) (Auto) 7 L 12-44 % Monocytes (%) (Auto) 2 0-12 % Eosinophils (%) (Auto) 0 0-10 % Basophils (%) (Auto) 0 0-10 % Neutrophils # (Auto) 7.1 1.8-7.8 10^3/uL Lymphocytes # (Auto) 0.5 L 1.0-4.0 10^3/uL Monocytes # (Auto) 0.1 0.0-1.0 10^3/uL Eosinophils # (Auto) 0.0 0.0-0.3 10^3/uL Basophils # (Auto) 0.0 0.0-0.1 10^3/uL Immature Granulocyte # (Auto) 0.0 0.0-0.1 10^3/uL Neutrophils % (Manual) 91 % Lymphocytes % (Manual) 7 % Monocytes % (Manual) 2 % Sodium Level 136 135-145 MMOL/L Potassium Level 3.6 3.6-5.0 MMOL/L Chloride Level 99 98-107 MMOL/L Carbon Dioxide Level 22 21-32 MMOL/L Anion Gap 15 H 5-14 MMOL/L Blood Urea Nitrogen 17 7-18 MG/DL Creatinine 1.56 H 0.60-1.30 MG/DL Estimat Glomerular Filtration Rate 36 BUN/Creatinine Ratio 11 Glucose Level 147 H 70-105 MG/DL Calcium Level 10.1 8.5-10.1 MG/DL Corrected Calcium 9.8 8.5-10.1 MG/DL Total Bilirubin 0.7 0.1-1.0 MG/DL Aspartate Amino Transf (AST/SGOT) 15 5-34 U/L Alanine Aminotransferase (ALT/SGPT) 9 0-55 U/L Alkaline Phosphatase 74 40-136 U/L Total Protein 6.7 6.4-8.2 GM/DL Albumin 4.4 3.2-4.5 GM/DL My Orders Orders - LUIS ALBERTO TORRES MD Cbc With Automated Diff (03/29/22 15:39) Comprehensive Metabolic Panel (03/29/22 15:39) Ns Iv 500 Ml (Sodium Chloride 0.9%) (03/29/22 15:45) Promethazine Injection (Phenergan Injec (03/29/22 15:45) Implanted Port: Access (03/29/22 15:39) Manual Differential (03/29/22 16:00) Diphenhydramine Injection (Benadryl Inje (03/29/22 16:45) Acetaminophen Tablet (Tylenol Tablet) (03/29/22 16:45) Droperidol Inj (Ed Only) (Inapsine Inj ( (03/29/22 17:15) Medications Given in ED Current Medications Medications Dose Ordered Sig/Eligio Route Start Time Stop Time Status Last Admin Dose Admin Acetaminophen 1,000 mg ONCE ONCE PO 03/29/22 16:45 03/29/22 16:46 DC 03/29/22 16:48 1,000 MG Diphenhydramine HCl 12.5 mg ONCE ONCE IVP 03/29/22 16:45 03/29/22 16:46 DC 03/29/22 16:49 12.5 MG Droperidol 1.25 mg ONCE ONCE IV 03/29/22 17:15 03/29/22 17:16 DC 03/29/22 17:16 1.25 MG Promethazine HCl 25 mg ONCE ONCE IVP 03/29/22 15:45 03/29/22 15:58 DC 03/29/22 16:11 25 MG Sodium Chloride 500 ml @ 0 mls/hr Q0M ONCE IV 03/29/22 15:45 03/29/22 15:58 DC 03/29/22 16:10 500 MLS/HR Vital Signs/I&O 03/29/22 03/29/22 15:35 17:21 Temp 36.0 36.0 Pulse 104 95 Resp 18 18 B/P (MAP) 142/82 (102) 153/84 Pulse Ox 98 98 O2 Delivery Room Air Room Air Blood Pressure Mean: 102 Progress Progress Note : Progress Note 71-year-old female with above history coming in due to nonbloody nonbilious vomiting. ABCs were intact and vitals were stable on presentation. Specifically, the patient is not tachycardic, has moist mucous membranes, has brisk capillary refill, and clinically does not appear dehydrated. Her port was accessed and labs are near her baseline. She was given IV fluids as well as IV Phenergan and Benadryl. She had a headache and was able to swallow Tylenol and keep that down for more than 30 minutes. Never had any vomiting in the ER. I discussed with the patient that she can take her oral morphine at home. I will send her prescription for Phenergan suppositories. Of note, this has been such a chronic issue with the patient and she has never had any type of follow-up with a GI specialist. I recommended follow-up with a specialist and gave her information to make a phone call to schedule an appointment. Departure Impression Primary Impression: Vomiting in adult Disposition: 01 HOME, SELF-CARE Condition: Stable Departure-Patient Inst. Decision time for Depature: 17:02 Referrals: ANA LUISA BARRAGAN APRN (PCP) Primary Care Physician [facility] (Family) Primary Care Physician Patient Instructions: Nausea and Vomiting, Adult ED Add. Discharge Instructions: Use your Zofran at home as needed, if that does not work then you can try the Phenergan suppository that were sent to [facility] to be picked up tomorrow. Follow-up with your regular doctor as needed. We also recommend following up with a GI specialist. [facility] is an option and their number is [phone]. Please call and schedule an appointment with them or another GI doctor of your preference as soon as possible given they can take some time to get an appointment Scripts Promethazine HCl (Promethazine Suppository) 25 Mg Supp.rect 25 MG RC Q8H PRN for NAUSEA/VOMITING-2ND LINE for 5 Days, #15 SUPP.RECT Prov: LUIS ALBERTO TORRES MD 03/29/22 LUIS ALBERTO TORRES MD Mar 29, 2022 16:12
[2022-03-29] MEDS ORDERED: PROM25SU44 RC ×2 (16:14→17:03)
[2022-03-29 16:24] LABS: ALBUMIN 4.4 GM/DL (3.2-4.5); BILIRUBIN,TOTAL 0.7 MG/DL (0.1-1.0); CALCIUM 10.1 MG/DL (8.5-10.1); CREATININE SERUM 1.56 MG/DL (0.60-1.30); POTASSIUM 3.6 MMOL/L (3.6-5.0); TOTAL PROTEIN 6.7 GM/DL (6.4-8.2)
[2022-03-29 16:28] LABS: LYMPHOCYTES % (MANUAL) 7 %; MONOCYTES % (MANUAL) 2 %; NEUTROPHILS % (MANUAL) 91 %
[2022-03-29] MEDS ORDERED: ACETAMINOPHEN 500 MG TAB (TYLENOL) PO ONE (16:45)
[2022-03-29] MEDS ORDERED: diphenhydrAMINE 50 MG/ML INJ (BENADRYL) IVP ONE (16:45)
[2022-03-29] MEDS ORDERED: DROPERIDOL 5 MG/2 ML (INAPSINE) ED ONLY! IV ONE (17:15)
[2022-03-29 17:21] VITALS: BP 153/84
== END 2022-03-29 17:21 | disposition home or self-care (01) ==
LOC: EDUNIT# 15:28 → ER FS 15:30
DX: R11.2 Nausea with vomiting, unspecified (principal); R51.9 Headache, unspecified
CPT/HCPCS: 36415; 80053; 85007; 85027; 99283

== ENCOUNTER 2022-06-01 18:19 | Emergency (ER) | payer MEDICARE, OTHER ==
[~2022-06-01] VITALS: Ht 152.4 cm; Wt 47.2 kg
[2022-06-01 18:24] VITALS: BP 131/99
[2022-06-01] MEDS ORDERED: HEParin (CENTRAL IV FLUSH) 500 UNIT/5 ML SYR IV STA (18:29)
--- NOTE | 2022-06-01 18:31 | ED General ---
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 She had been at the cancer center in [place] today and they had accessed her port to administer fluids and chemotherapy. However her platelet count was not high enough to receive chemotherapy. She had left [place] prior to having the port deaccessed. She had tried going to urgent care to see if they could deaccessed the port and they did not have heparin that she wants to have into the port when it is deaccessed. She came here to the emergency department to have the needle removed from her IV port. She denies any other complaints or concerns. Allergies and Home Medications Allergies Coded Allergies: Sulfa (Sulfonamide Antibiotics) (Verified Allergy, Unknown, hives, 05/24/18) latex (Verified Allergy, Unknown, anaphylaxis, 05/24/18) midazolam (Verified Allergy, Unknown, 08/29/21) vancomycin (Verified Allergy, Unknown, hives, 05/24/18) Patient Home Medication List Home Medication List Reviewed: Yes ALPRAZolam (Xanax Tablet) 0.25 Mg Tablet, 0.25 MG PO TID PRN for ANXIETY, (Reported) Entered as Reported by: ANA LUISA NOVA on 03/01/19 1043 Acyclovir (Acyclovir) 400 Mg Tablet, 400 MG PO BID, (Reported) Entered as Reported by: MAI SEGOVIA on 05/24/18 0932 Amlodipine Besylate (Amlodipine Besylate) 5 Mg Tablet, 5 MG PO DAILY, (Reported) Entered as Reported by: MAI SEGOVIA on 05/24/18 0932 Apixaban (Eliquis) 5 Mg Tablet, 5 MG PO BID, (Reported) Entered as Reported by: ANA LUISA NOVA on 03/01/19 1220 Calcium Carbonate/Vitamin D3 (Os-Alan 500+D3 Caplet) 1 Each Tablet, 1 TAB PO BID, (Reported) Entered as Reported by: ANA LUISA NOVA on 03/01/19 1043 Cholecalciferol (Vitamin D3) (Vitamin D3) 2,000 Unit Tablet, 2,000 UNIT PO BID, (Reported) Entered as Reported by: ANA LUISA NOVA on 03/01/19 1043 Cyanocobalamin (Cyanocobalamin Injection) 1,000 Mcg/Ml Inj, 1,000 MCG IM UD, (Reported) Entered as Reported by: ANA LUISA NOVA on 03/01/19 1044 Diphenhydramine HCl (Benadryl) 25 Mg Capsule, 100 MG PO HS PRN for ITCHING, (Reported) Entered as Reported by: ANA LUISA NOVA on 03/01/19 1043 Docusate Sodium (Colace) 100 Mg Capsule, 200 MG PO HS PRN for CONSTIPATION-1ST LINE, (Reported) Entered as Reported by: ANA LUISA NOVA on 03/01/19 1043 Fexofenadine HCl (Emelia Allergy) 60 Mg Tablet, 60 MG PO BID PRN for ALLERGIES, (Reported) Entered as Reported by: ANA LUISA NOVA on 03/01/19 1043 Gabapentin (Gabapentin) 600 Mg Tablet, 600 MG PO HS, (Reported) Entered as Reported by: MAI SEGOVIA on 05/24/18 0932 Granisetron (Sancuso) 1 Each Patch.tdwk, 1 PATCH TD Romero, (Reported) Entered as Reported by: MAI SEGOVIA on 05/24/18 0932 Loperamide HCl (Imodium A-D) 2 Mg Tablet, PO UD PRN for DIARRHEA, (Reported) Entered as Reported by: ANA LUISA NOVA on 03/01/19 1043 Losartan Potassium (Losartan Potassium) 100 Mg Tablet, 50 MG PO DAILY, (Reported) Entered as Reported by: ANA LUISA NOVA on 03/01/19 1236 Morphine Sulfate (Ms Contin) 30 Mg Tablet.er, 30 MG PO BID, (Reported) Entered as Reported by: ANA LUISA NOVA on 03/01/19 1043 Morphine Sulfate (Morphine Sulfate IR Tablet) 15 Mg Tablet, 15 MG PO TID PRN for PAIN-SEVERE (8-10), (Reported) Entered as Reported by: ANA LUISA NOVA on 03/01/19 1043 Naloxegol Oxalate (Movantik) 25 Mg Tablet, 25 MG PO SuMoWeThFrSa, (Reported) Entered as Reported by: MAI SEGOVIA on 05/24/18 0932 Ondansetron (Ondansetron Odt) 8 Mg Tab.rapdis, 8 MG PO TID PRN for NAUSEA/VOMITING-1ST LINE, (Reported) Entered as Reported by: ANA LUISA NOVA on 03/01/19 1044 Ondansetron (Ondansetron Odt) 8 Mg Tab.rapdis, 8 MG PO Q8H PRN for NAUSEA/VOMITING Prescribed by: AINSLEY ROYAL on 08/21/20 1233 Ondansetron (Ondansetron Odt) 4 Mg Tab.rapdis, 4 MG PO Q6H PRN for NA USEA/VOMITING Prescribed by: ANA FERNANDEZ on 03/09/21 1131 Pantoprazole Sodium (Pantoprazole Sodium) 40 Mg Tablet.dr, 40 MG PO DAILY, (Reported) Entered as Reported by: MAI SEGOVIA on 05/24/18 0932 Phenazopyridine HCl (Azo Urinary Pain Relief) 97.5 Mg Tablet, 97.5 MG PO DAILY PRN for URINARY PAIN, (Reported) Entered as Reported by: ANA LUISA NOVA on 03/01/19 1043 Polyethylene Glycol 3350 (Miralax) 17 Gm Powd.pack, 17 GM PO Q2H PRN for CONSTIPATION-2ND LINE, (Reported) Entered as Reported by: ANA LUISA NOVA on 03/01/19 1043 Potassium Chloride (Klor-Con M10) 10 Meq Tab.er.prt, 10 MEQ PO BID, (Reported) Entered as Reported by: MAI SEGOVIA on 05/24/18 0932 Potassium Chloride (Potassium Chloride) 10 Meq Capsule.er, 10 MEQ PO DAILY Prescribed by: NGOC CASTRO on 09/27/21 0501 Potassium Phosphate,Monobasic (K-Phos Original) 500 Mg Tablet.alba, 1,000 MG PO BID, (Reported) Entered as Reported by: MAI SEGOVIA on 05/24/18 0932 Promethazine HCl (Promethazine Tablet) 25 Mg Tablet, 25 MG PO Q6H PRN for NAUSEA/VOMITING Prescribed by: LUIS ALEBRTO TORRES on 07/02/21 1103 Promethazine HCl (Promethazine Suppository) 25 Mg Supp.rect, 25 MG RC Q6H PRN for NAUSEA/VOMITING-2ND LINE Prescribed by: NGOC VARGASRT on 09/27/21 0501 Promethazine HCl (Promethazine Suppository) 25 Mg Supp.rect, 25 MG RC Q8H PRN for NAUSEA/VOMITING-2ND LINE Prescribed by: LUIS ALBERTO TORRES on 03/29/22 1703 Rosuvastatin Calcium (Crestor) 10 Mg Tablet, 10 MG PO DAILY, (Reported) Entered as Reported by: ANA LUISA NOVA on 03/01/19 1012 Sennosides (Senokot) 8.6 Mg Tablet, 8.6 MG PO DAILY PRN for CONSTIPATION-5TH LINE, (Reported) Entered as Reported by: ANA LUISA NOVA on 03/01/19 1043 Temazepam (Temazepam) 15 Mg Capsule, 15 MG PO HS PRN for SLEEP, (Reported) Entered as Reported by: ANA LUISA NOVA on 03/01/19 1043 Thyroid,Pork ([place] Thyroid) 30 Mg Tablet, 30 MG PO DAILY, (Reported) Entered as Reported by: ANA LUISA NOVA on 03/01/19 1212 Tramadol HCl (Tramadol HCl) 50 Mg Tablet, 50 MG PO TID PRN for PAIN-MODERATE (5- 7), (Reported) Entered as Reported by: ANA LUISA NOVA on 03/01/19 1043 [Valcade] , INJ WEDNESDAY, (Reported) Entered as Reported by: ANA LUISA NOVA on 03/01/19 1043 Review of Systems Review of Systems Constitutional: No chills, No fever EENTM: no symptoms reported Respiratory: no symptoms reported Cardiovascular: no symptoms reported Gastrointestinal: no symptoms reported Genitourinary: no symptoms reported Musculoskeletal: no symptoms reported Skin: no symptoms reported Psychiatric/Neurological: No Symptoms Reported Past Qgempzg-Flbypu-Zrhtvm Hx Patient Social History Tobacco Use?: No Use of E-Cig and/or Vaping dev: No Substance use?: No Alcohol Use?: No Pt feels they are or have been: No Immunizations Up To Date First/Initial COVID19 Vaccinat: pt unable to recall which one Second COVID19 Vaccination Luis: pt unable to recall which one Third COVID19 Vaccination Date: pt unable to recall which one Seasonal Allergies Seasonal Allergies: No Past Medical History 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 Surgeries: Yes (colon resection; stem cell transplant) Appendectomy, Bowel Surgery, Gallbladder, Hysterectomy Respiratory: No Cardiac: Yes Hypertension Neurological: No Genitourinary: Yes Bladder Infection Gastrointestinal: No Musculoskeletal: No Endocrine: No HEENT: No Cancer: Yes (blood cancer; light chain proteins, MULTIPLE MYELOMA) Psychosocial: No Integumentary: No Blood Disorders: Yes Family Medical History Cancer, Stroke Physical Exam Vital Signs Vital Signs - First Documented 06/01/22 18:24 Temp 36.1 Pulse 69 Resp 14 B/P (MAP) 131/99 (110) O2 Delivery Room Air Capillary Refill : Height, Weight, BMI Height: 5'1.00" Weight: 127lbs. oz. 57.686534iw; 22.00 BMI Method:Stated General Appearance: No Apparent Distress, WD/WN HEENT: PERRL/EOMI, Pharynx Normal Respiratory: Chest Non Tender Neurologic/Psychiatric: Alert, Oriented x3 Skin: Normal Color, Warm/Dry Progress/Results/Core Measures Suspected Sepsis SIRS Temperature: Pulse: Respiratory Rate: Blood Pressure / Mean: Results/Orders My Orders Orders - NGOC CASTRO MD Heparin (Central Iv Flush) (Heparin (Yamil (06/01/22 18:29) Vital Signs/I&O 06/01/22 18:24 Temp 36.1 Pulse 69 Resp 14 B/P (MAP) 131/99 (110) O2 Delivery Room Air Capillary Refill : Progress Note : Progress Note Placed order for heparin for central line flush and requested the nurses deaccessed her port. Encouraged to follow-up with Dr. Michael and primary care as needed. Discharged home in stable condition Departure Impression Primary Impression: Port-A-Cath in place Additional Impression: Encounter to deaccess implanted intravenous (IV) port Disposition: 01 HOME, SELF-CARE Condition: Stable Departure-Patient Inst. Decision time for Depature: 18:30 Referrals: ANA LUISA BARRAGAN APRN (PCP) Primary Care Physician [facility] (Family) Primary Care Physician Patient Instructions: How to Care for a Portacath Add. Discharge Instructions: Follow-up with Dr. Michael and primary care as needed All discharge instructions reviewed with patient and/or family. Voiced und erstanding. NGOC CASTRO MD Jun 01, 2022 18:31
== END 2022-06-01 18:36 | disposition home or self-care (01) ==
LOC: EDUNIT# 18:19 → ER FS 18:20
DX: Z45.2 Encounter for adjustment and management of vascular access device (principal); Z91.040 Latex allergy status
CPT/HCPCS: 99281

== ENCOUNTER 2022-06-15 15:03 | Inpatient (IN) | payer MEDICARE, OTHER ==
[~2022-06-15] VITALS: Ht 152 cm; Wt 54.4 kg
[2022-06-15] MEDS ORDERED: DROPERIDOL 5 MG/2 ML (INAPSINE) ED ONLY! IV ONE (15:45)
[2022-06-15] MEDS ORDERED: NS IV 500 ML 500 ML IV ONE (15:45)
[2022-06-15] MEDS ORDERED: ASPIRIN 81 MG CHEW (CHILDREN'S ASA) PO ONE (15:45)
--- NOTE | 2022-06-15 15:46 | ED Cough/URI ---
General Chief Complaint: Respiratory Problems Stated Complaint: SOB; BACK PAIN Source: patient, family, old records Exam Limitations: no limitations History of Present Illness Date Seen by Provider: June 15, 2022 Time Seen by Provider: 15:09 Initial Comments 71-year-old female with past medical history of multiple myeloma and chronic na usea coming in due to back pain and shortness of breath. She has had a nonproductive cough for roughly 4 days, went to urgent care on Wednesday, was told she could have pneumonia. Was called today and actually told her that she does not in fact have pneumonia. The discomfort goes across her chest, worse with coughing, better with rest. Denies any cardiac history including no stents. She states she had a blood clot in her jugular 3 years ago and has been on Eliquis since then. She has not missed any doses of that. Denies any lower extremity swelling or pain. Allergies and Home Medications Allergies Coded Allergies: Sulfa (Sulfonamide Antibiotics) (Verified Allergy, Unknown, hives, 05/24/18) latex (Verified Allergy, Unknown, anaphylaxis, 05/24/18) midazolam (Verified Allergy, Unknown, 08/29/21) vancomycin (Verified Allergy, Unknown, hives, 05/24/18) Patient Home Medication List Home Medication List Reviewed: Yes ALPRAZolam (Xanax Tablet) 0.25 Mg Tablet, 0.25 MG PO TID PRN for ANXIETY, (Reported) Entered as Reported by: ANA LUISA NOVA on 03/01/19 1043 Acyclovir (Acyclovir) 400 Mg Tablet, 400 MG PO BID, (Reported) Entered as Reported by: MAI SEGOVIA on 05/24/18 0932 Amlodipine Besylate (Amlodipine Besylate) 5 Mg Tablet, 5 MG PO DAILY, (Reported) Entered as Reported by: MAI SEGOVIA on 05/24/18 0932 Apixaban (Eliquis) 5 Mg Tablet, 5 MG PO BID, (Reported) Entered as Reported by: ANA LUISA NOVA on 03/01/19 1220 Calcium Carbonate/Vitamin D3 (Os-Alan 500+D3 Caplet) 1 Each Tablet, 1 TAB PO BID, (Reported) Entered as Reported by: ANA LUISA NOVA on 03/01/19 1043 Cholecalciferol (Vitamin D3) (Vitamin D3) 2,000 Unit Tablet, 2,000 UNIT PO BID, (Reported) Entered as Reported by: ANA LUISA NOVA on 03/01/19 1043 Cyanocobalamin (Cyanocobalamin Injection) 1,000 Mcg/Ml Inj, 1,000 MCG IM UD, (Reported) Entered as Reported by: ANA LUISA NOVA on 03/01/19 1044 Diphenhydramine HCl (Benadryl) 25 Mg Capsule, 100 MG PO HS PRN for ITCHING, (Reported) Entered as Reported by: ANA LUISA NOVA on 03/01/19 1043 Docusate Sodium (Colace) 100 Mg Capsule, 200 MG PO HS PRN for CONSTIPATION-1ST LINE, (Reported) Entered as Reported by: ANA LUISA NOVA on 03/01/19 1043 Fexofenadine HCl (Emelia Allergy) 60 Mg Tablet, 60 MG PO BID PRN for ALLERGIES, (Reported) Entered as Reported by: ANA LUISA NOVA on 03/01/19 1043 Gabapentin (Gabapentin) 600 Mg Tablet, 600 MG PO HS, (Reported) Entered as Reported by: MAI SEGOVIA on 05/24/18 0932 Granisetron (Sancuso) 1 Each Patch.tdwk, 1 PATCH TD Romero, (Reported) Entered as Reported by: MAI SEGOVIA on 05/24/18 0932 Loperamide HCl (Imodium A-D) 2 Mg Tablet, PO UD PRN for DIARRHEA, (Reported) Entered as Reported by: ANA LUISA NOVA on 03/01/19 1043 Losartan Potassium (Losartan Potassium) 100 Mg Tablet, 50 MG PO DAILY, (Reported) Entered as Reported by: ANA LUISA NOVA on 03/01/19 1236 Morphine Sulfate (Ms Contin) 30 Mg Tablet.er, 30 MG PO BID, (Reported) Entered as Reported by: AN ALUISA NOVA on 03/01/19 1043 Morphine Sulfate (Morphine Sulfate IR Tablet) 15 Mg Tablet, 15 MG PO TID PRN for PAIN-SEVERE (8-10), (Reported) Entered as Reported by: ANA LUISA NOVA on 03/01/19 1043 Naloxegol Oxalate (Movantik) 25 Mg Tablet, 25 MG PO SuMoWeThFrSa, (Reported) Entered as Reported by: MAI SEGOVIA on 05/24/18 0932 Ondansetron (Ondansetron Odt) 8 Mg Tab.rapdis, 8 MG PO TID PRN for NAUSEA/VOMITING-1ST LINE, (Reported) Entered as Reported by: ANA LUISA NOVA on 03/01/19 1044 Ondansetron (Ondansetron Odt) 8 Mg Tab.rapdis, 8 MG PO Q8H PRN for NAUSEA/VOMITING Prescribed by: AINSLEY ROYAL on 08/21/20 1233 Ondansetron (Ondansetron Odt) 4 Mg Tab.rapdis, 4 MG PO Q6H PRN for NAUSEA/VOMITING Prescribed by: ANA FERNANDEZ on 03/09/21 1131 Pantoprazole Sodium (Pantoprazole Sodium) 40 Mg Tablet.dr, 40 MG PO DAILY, (Reported) Entered as Reported by: MAI SEGOVIA on 05/24/18 0932 Phenazopyridine HCl (Azo Urinary Pain Relief) 97.5 Mg Tablet, 97.5 MG PO DAILY PRN for URINARY PAIN, (Reported) Entered as Reported by: ANA LUISA NOVA on 03/01/19 1043 Polyethylene Glycol 3350 (Miralax) 17 Gm Powd.pack, 17 GM PO Q2H PRN for CONSTIPATION-2ND LINE, (Reported) Entered as Reported by: ANA LUISA NOVA on 03/01/19 1043 Potassium Chloride (Klor-Con M10) 10 Meq Tab.er.prt, 10 MEQ PO BID, (Reported) Entered as Reported by: MAI SEGOVIA on 05/24/18 0932 Potassium Chloride (Potassium Chloride) 10 Meq Capsule.er, 10 MEQ PO DAILY Prescribed by: NGOC CASTRO on 09/27/21 0501 Potassium Phosphate,Monobasic (K-Phos Original) 500 Mg Tablet.alba, 1,000 MG PO BID, (Reported) Entered as Reported by: MAI SEGOVIA on 05/24/18 0932 Promethazine HCl (Promethazine Tablet) 25 Mg Tablet, 25 MG PO Q6H PRN for NAUSEA/VOMITING Prescribed by: LUIS ALBERTO TORRES on 07/02/21 1103 Promethazine HCl (Promethazine Suppository) 25 Mg Supp.rect, 25 MG RC Q6H PRN for NAUSEA/VOMITING-2ND LINE Prescribed by: NGOC CASTRO on 09/27/21 0501 Promethazine HCl (Promethazine Suppository) 25 Mg Supp.rect, 25 MG RC Q8H PRN for NAUSEA/VOMITING-2ND LINE Prescribed by: LUIS ALBERTO TORRES on 03/29/22 1703 Rosuvastatin Calcium (Crestor) 10 Mg Tablet, 10 MG PO DAILY, (Reported) Entered as Reported by: ANA LUISA NOVA on 03/01/19 1012 Sennosides (Senokot) 8.6 Mg Tablet, 8.6 MG PO DAILY PRN for CONSTIPATION-5TH LINE, (Reported) Entered as Reported by: ANA LUISA NOVA on 03/01/19 1043 Temazepam (Temazepam) 15 Mg Capsule, 15 MG PO HS PRN for SLEEP, (Reported) Entered as Reported by: ANA LUISA NOVA on 03/01/19 1043 Thyroid,Pork ([place] Thyroid) 30 Mg Tablet, 30 MG PO DAILY, (Reported) Entered as Reported by: ANA LUISA NOVA on 03/01/19 1212 Tramadol HCl (Tramadol HCl) 50 Mg Tablet, 50 MG PO TID PRN for PAIN-MODERATE (5- 7), (Reported) Entered as Reported by: ANA LUISA NOVA on 03/01/19 1043 [Valcade] , INJ WEDNESDAY, (Reported) Entered as Reported by: ANA LUISA NOVA on 03/01/19 1043 Review of Systems Review of Systems Constitutional: No fever EENTM: no symptoms reported Respiratory: cough, short of breath Cardiovascular: chest pain Gastrointestinal: no symptoms reported Genitourinary: no symptoms reported Musculoskeletal: no symptoms reported Skin: no symptoms reported Psychiatric/Neurological: No Symptoms Reported Hematologic/Lymphatic: No Symptoms Reported Immunological/Allergic: no symptoms reported All Other Systems Reviewed Negative Unless Noted: Yes Past Jsqgmmj-Cffblm-Ywgpti Hx Patient Social History Tobacco Use?: No Immunizations Up To Date First/Initial COVID19 Vaccinat: pt unable to recall which one Second COVID19 Vaccination Luis: pt unable to recall which one Third COVID19 Vaccination Date: pt unable to recall which one Seasonal Allergies Seasonal Allergies: No Past Medical History Surgery/Hospitalization HX: [place]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 oz. 57.075159pw; 20.00 BMI Method:Stated General Appearance: WD/WN, no apparent distress Eyes: Bilateral Eye Normal Inspection HEENT: PERRL/EOMI, normal ENT inspection, pharynx normal Neck: non-tender, full range of motion, supple, normal inspection Respiratory: chest non-tender, lungs clear, normal breath sounds, no respiratory distress, no accessory muscle use Cardiovascular: regular rate, rhythm, no edema, no murmur Gastrointestinal: normal bowel sounds, non tender, soft; No distended, No guarding, No rebound Extremities: normal range of motion, non-tender, normal inspection, no pedal edema, no calf tenderness, normal capillary refill Neurologic/Psychiatric: no motor/sensory deficits, alert, normal mood/affect Skin: normal color, warm/dry Focused Exam Lactate Level 06/15/22 15:58: Lactic Acid Level 1.62 Lactic Acid Level Laboratory Tests Test 06/15/22 15:58 Lactic Acid Level 1.62 MMOL/L (0.50-2.00) Progress/Results/Core Measures Suspected Sepsis SIRS Temperature: Pulse: Respiratory Rate: Laboratory Tests 06/15/22 15:58: White Blood Count 4.2L Blood Pressure / Mean: 06/15/22 15:58: Lactic Acid Level 1.62 Laboratory Tests 06/15/22 15:58: Creatinine 2.27H, INR Comment 1.1, Platelet Count 88L, Total Bilirubin 0.8 Results/Orders Lab Results Laboratory Tests Test 06/15/22 15:58 Range/Units White Blood Count 4.2 L 4.3-11.0 10^3/uL Red Blood Count 2.97 L 3.80-5.11 10^6/uL Hemoglobin 10.8 L 11.5-16.0 g/dL Hematocrit 30 L 35-52 % Mean Corpuscular Volume 102 H 80-99 fL Mean Corpuscular Hemoglobin 36 H 25-34 pg Mean Corpuscular Hemoglobin Concent 36 32-36 g/dL Red Cell Distribution Width 12.9 10.0-14.5 % Platelet Count 88 L 130-400 10^3/uL Mean Platelet Volume 10.5 9.0-12.2 fL Immature Granulocyte % (Auto) 0 % Neutrophils (%) (Auto) 79 H 42-75 % Lymphocytes (%) (Auto) 6 L 12-44 % Monocytes (%) (Auto) 4 0-12 % Eosinophils (%) (Auto) 7 0-10 % Basophils (%) (Auto) 0 0-10 % Neutrophils # (Auto) 3.3 1.8-7.8 X 10^3 Lymphocytes # (Auto) 0.3 L 1.0-4.0 X 10^3 Monocytes # (Auto) 0.3 0.0-1.0 X 10^3 Eosinophils # (Auto) 0.3 0.0-0.3 10^3/uL Basophils # (Auto) 0.0 0.0-0.1 10^3/uL Immature Granulocyte # (Auto) 0.0 0.0-0.1 10^3/uL Neutrophils % (Manual) 76 % Lymphocytes % (Manual) 4 % Monocytes % (Manual) 6 % Eosinophils % (Manual) 6 % Basophils % (Manual) 0 % Band Neutrophils 8 % Percent Immature Platelet Fraction 3.0 0.0-7.6 % Prothrombin Time 15.0 H 12.2-14.7 SEC INR Comment 1.1 0.8-1.4 Activated Partial Thromboplast Time 142 *H 24-35 SEC D-Dimer 0.25 0.00-0.49 UG/ML Sodium Level 131 L 135-145 MMOL/L Potassium Level 4.2 3.6-5.0 MMOL/L Chloride Level 99 98-107 MMOL/L Carbon Dioxide Level 17 L 21-32 MMOL/L Anion Gap 15 H 5-14 MMOL/L Blood Urea Nitrogen 33 H 7-18 MG/DL Creatinine 2.27 H 0.60-1.30 MG/DL Estimat Glomerular Filtration Rate 23 BUN/Creatinine Ratio 15 Glucose Level 91 70-105 MG/DL Lactic Acid Level 1.62 0.50-2.00 MMOL/L Calcium Level 9.6 8.5-10.1 MG/DL Corrected Calcium 9.8 8.5-10.1 MG/DL Magnesium Level 1.7 1.6-2.4 MG/DL Total Bilirubin 0.8 0.1-1.0 MG/DL Aspartate Amino Transf (AST/SGOT) 14 5-34 U/L Alanine Aminotransferase (ALT/SGPT) 13 0-55 U/L Alkaline Phosphatase 51 40-136 U/L Troponin I < 0.30 <0.30 NG/ML Pro-B-Type Natriuretic Peptide 154.8 H <125.0 PG/ML Total Protein 5.7 L 6.4-8.2 GM/DL Albumin 3.7 3.2-4.5 GM/DL Lipase 55 8-78 U/L My Orders Orders - LUIS ALBERTO TORRES MD Ns Iv 500 Ml (Sodium Chloride 0.9%) (06/15/22 15:45) Cbc With Automated Diff (06/15/22 15:36) Magnesium (06/15/22 15:36) Chest 1 View Ap/Pa Only (06/15/22 15:36) Ekg Tracing (06/15/22 15:36) Comprehensive Metabolic Panel (06/15/22 15:36) Protime With Inr (06/15/22 15:36) Partial Thromboplastin Time (06/15/22 15:36) O2 (06/15/22 15:36) Monitor-Rhythm Ecg Trace Only (06/15/22 15:36) Ed Iv/Invasive Line Start (06/15/22 15:36) Lipase (06/15/22 15:36) Troponin I Fs (06/15/22 15:36) Probnp Fs (06/15/22 15:36) Droperidol Inj (Ed Only) (Inapsine Inj ( (06/15/22 15:45) Aspirin Chewable Tablet (Baby Aspirin Ch (06/15/22 15:45) Lactic Acid Analyzer (06/15/22 16:02) Ceftriaxone Iv/Im (Rocephin Iv/Im) (06/15/22 16:15) Doxycycline Hyclate Tablet (Vibramycin T (06/15/22 16:02) Ns Iv 500 Ml (Sodium Chloride 0.9%) (06/15/22 16:04) Blood Culture (06/15/22 16:08) Manual Differential (06/15/22 15:58) Fibrin Degradation Products (06/15/22 16:22) Ekg Tracing (06/15/22 16:23) Ns Iv 1000 Ml (Sodium Chloride 0.9%) (06/15/22 16:31) Ed Admission (Communication) (06/15/22 16:56) Medications Given in ED Current Medications Medications Dose Ordered Sig/Eligio Route Start Time Stop Time Status Last Admin Dose Admin Aspirin 324 mg ONCE ONCE PO 06/15/22 15:45 06/15/22 15:46 DC 06/15/22 15:59 324 MG Ceftriaxone Sodium 1000 mg/ Sodium Chloride 50 ml @ 100 mls/hr ONCE ONCE IV 06/15/22 16:15 06/15/22 16:44 DC 06/15/22 16:08 100 MLS/HR Droperidol 1.25 mg ONCE ONCE IV 06/15/22 15:45 06/15/22 15:46 DC 06/15/22 16:00 1.25 MG Sodium Chloride 500 ml @ 0 mls/hr Q0M ONCE IV 06/15/22 15:45 06/15/22 15:46 DC 06/15/22 15:59 1,000 MLS/HR Vital Signs/I&O Capillary Refill : Progress Note : Progress Note 71-year-old female with above history coming in due to shortness of breath and cough. The patient was mildly hypotensive on arrival, but not tachycardic, normal oxygen saturation. Physical exam essentially unremarkable. Her port was accessed and she was given a bolus of IV fluids and basic labs including blood cultures and lactic acid ordered. She was given ceftriaxone as well as doxycycline given potential for respiratory infection. EKG ordered and interpreted by me showing no acute ischemic changes. Chest x- ray ordered and interpreted by me showing no obvious pneumonia, no pneumothorax, no acute changes from prior. Her white blood cell count is slightly low today. We were called into the room by the patient's family member, at that time she was unresponsive, eyes rolled up, and was like that for roughly 30 seconds. Unc lear of the etiology. Repeat EKG with no changes. At this point, she actually stated her chest pain felt better. Blood pressure afterwards was in the 70s and then 80s systolic after the episode. Another liter of IV fluids was ordered at that time. Lactic acid normal, white blood cell count slightly low at 4, but near her baseline, she has an DOMINGO with a creatinine around 2.2 with a baseline around 1.4. Troponin is negative, D-dimer is negative, and I think a PE is very unlikely at this point given her continued Eliquis use. I also think ACS is unlikely given negative troponin with constant pain for many hours. I suspect the patient is dehydrated versus this is an infection. She is not tachycardic, not febrile, and overall I think the risk of a serious bacterial infection is unlikely. Blood cultures are pending however. I think it is much more likely the patient is hypovolemic given she did respond to IV fluids with blood pressure later on . The patient in the past hasn't tolerated rapid and large amounts of fluids. We will hold off on further boluses, and let the ICU team evaluate her before getting more fluid at this time. I contacted Dr. Suggs, who admit the patient to the intensive care unit for further evaluation and management. I then contacted the ICU physician for signout. ECG Initial ECG Impression Date: June 15, 2022 Initial ECG Impression Time: 15:50 Initial ECG Rate: 77 Initial ECG Rhythm: Normal Sinus Comment Narrow QRS, normal axis, no significant ST changes or T wave abnormalities EKG : Rate: 1624 Rhythm: Normal Sinus Comment Narrow QRS, normal axis, no significant changes from prior EKG Diagnostic Imaging Diagonstic Imaging: Xray (chest) Comments [facility] [place] [place] NAME: RHIANNON MORSE [facility] REC#: [id number] PT STATUS: REG ER : 1950 PHYSICIAN: LUIS ALBERTO TORRES MD ADMIT DATE: 06/15/22/ER FS Draft Date of Exam:06/15/22 CHEST 1 VIEW AP/PA ONLY INDICATION: Shortness of breath and back pain. EXAMINATION: Portable chest at 03:40 p.m. FINDINGS: Right subclavian Port-A-Cath tip projects over the SVC. Heart size and pulmonary vascularity are normal. Lungs are clear. There are no effusions or pneumothoraces. IMPRESSION: No acute abnormalities in the chest. Dictated on workstation # [id number] Dict: 06/15/22 1550 Trans: 06/15/22 1555 [id number] Interpreted by: AINSLEY WILSON MD Electronically signed by: Departure Impression Primary Impression: DOMINGO (acute kidney injury) Additional Impressions: Syncope Qualified Codes: R55 - Syncope and collapse Chest pain Qualified Codes: R07.82 - Intercostal pain Hypotension Qualified Codes: I95.89 - Other hypotension; E86.1 - Hypovolemia Disposition: 30 STILL A PATIENT Condition: Stable Admissions Decision to Admit Reason: Admit from ER (General) Decision to Admit/Date: June 15, 2022 Time/Decision to Admit Time: 16:40 Transfer Transfer Facility: [facility] Method of Transfer: EMS Departure-Patient Inst. Referrals: ANA LUISA BARRAGAN APRN (PCP) Primary Care Physician [facility] (Family) Primary Care Physician LUIS ALBERTO TORRES MD June 15, 2022 15:46
--- NOTE | 2022-06-15 15:55 | Diagnostic Imaging Report ---
INDICATION: Shortness of breath and back pain. EXAMINATION: Portable chest at 03:40 p.m. FINDINGS: Right subclavian Port-A-Cath tip projects over the SVC. Heart size and pulmonary vascularity are normal. Lungs are clear. There are no effusions or pneumothoraces. IMPRESSION: No acute abnormalities in the chest. Dictated by: Dictated on workstation # [id number]
[2022-06-15] MEDS ORDERED: DOXYCYCLINE 100 MG (VIBRAMYCIN) TABLET PO STA (16:02)
[2022-06-15] MEDS ORDERED: NS IV 500 ML 500 ML ONE (16:04)
[2022-06-15 16:14] LABS: HEMATOCRIT 30 % (35-52); HEMOGLOBIN 10.8 g/dL (11.5-16.0); MEAN CORPUSCULAR HEMOGLOBIN 36 pg (25-34); MEAN CORPUSCULAR HGB CONC 36 g/dL (32-36); MEAN CORPUSCULAR VOLUME 102 fL (80-99); MEAN PLATELET VOLUME 10.5 fL (9.0-12.2); NEUTROPHILS % (AUTO) 79 % (42-75); PLATELET COUNT 88 10^3/uL (130-400); WHITE BLOOD COUNT 4.2 10^3/uL (4.3-11.0)
[2022-06-15 16:15] LABS: BASOPHILS % (AUTO) 0 % (0-10); EOSINOPHILS # (AUTO) 0.3 10^3/uL (0.0-0.3); EOSINOPHILS % (AUTO) 7 % (0-10); LYMPHOCYTES # (AUTO) 0.3 X 10^3 (1.0-4.0); LYMPHOCYTES % (AUTO) 6 % (12-44); MONOCYTES # (AUTO) 0.3 X 10^3 (0.0-1.0); MONOCYTES % (AUTO) 4 % (0-12); NEUTROPHILS # (AUTO) 3.3 X 10^3 (1.8-7.8)
[2022-06-15] MEDS ORDERED: cefTRIAXone IV/IM 1,000 MG in NS (IVPB) 50 ML IV ONE (16:15)
[2022-06-15 16:27] LABS: INR 1.1 (0.8-1.4)
[2022-06-15] MEDS ORDERED: NS IV 1000 ML 1,000 ML IV STA (16:31)
[2022-06-15 16:42] LABS: POTASSIUM 4.2 MMOL/L (3.6-5.0)
[2022-06-15 16:43] LABS: ALBUMIN 3.7 GM/DL (3.2-4.5); BILIRUBIN,TOTAL 0.8 MG/DL (0.1-1.0); CALCIUM 9.6 MG/DL (8.5-10.1); CREATININE SERUM 2.27 MG/DL (0.60-1.30); MAGNESIUM 1.7 MG/DL (1.6-2.4); TOTAL PROTEIN 5.7 GM/DL (6.4-8.2)
[2022-06-15 16:57] LABS: BAND NEUTROPHILS 8 %; BASOPHILS % (MANUAL) 0 %; EOSINOPHILS % (MANUAL) 6 %; LYMPHOCYTES % (MANUAL) 4 %; MONOCYTES % (MANUAL) 6 %; NEUTROPHILS % (MANUAL) 76 %
[2022-06-15] MEDS ORDERED: NS IV 500 ML 500 ML IV PRN (18:45)
[2022-06-15] MEDS: NS IV 1000 ML 1,000 ML IV SCH (19:02)
[2022-06-15] MEDS: CEFEPIME INJECTION 1,000 MG in NS (IVPB) 50 ML IV SCH (19:09)
[2022-06-15 19:35] VITALS: BP 100/81
[2022-06-15] MEDS ORDERED: RT-ALBUTEROL SULF 2.5 MG/3 ML PRE-MIX VIAL INH PRN (20:00)
[2022-06-15] MEDS ORDERED: guaiFENesin/CODEINE (ROBITUSSIN AC) 10ML UDC PO NR (20:00)
--- NOTE | 2022-06-15 20:21 | Tele-ICU Progress Note ---
Subjective Date Seen by a Provider: June 15, 2022 Time Seen by a Provider: 19:30 Sepsis Event Evaluation Sepsis Stage: Ruled Out Height, Weight, BMI Height: 5'1.00" Weight: 127lbs. oz. 57.198441up; 155.27 BMI Method:Stated Focused Exam Sepsis Stage: Ruled Out Lactate Level 06/15/22 15:58: Lactic Acid Level 1.62 Exam Exam Patient acknowledged, consented, and participated in this virtual visit which was conducted using real time audio/video Vital Signs Date Time Temp Pulse Resp B/P (MAP) Pulse Ox O2 Delivery O2 Flow Rate FiO2 06/15/22 19:52 98 Room Air 06/15/22 19:35 36.6 78 100 21 06/15/22 19:30 36.6 78 20 100/81 (87) 100 Room Air 06/15/22 18:50 36.3 75 18 117/71 (86) 100 Room Air 06/15/22 17:50 36.1 74 16 101/61 100 Room Air 06/15/22 15:26 36.1 85 16 103/55 (71) 97 Room Air Height & Weight Height: 5'1.00" Weight: 127lbs. oz. 57.145343nn; 155.27 BMI Method:Stated General Appearance: No Apparent Distress Capillary Refill: Less Than 3 Seconds Gastrointestinal: normal bowel sounds, non tender, soft; No distended, No guarding, No rebound Results Lab Laboratory Tests 06/15/22 15:58 Assessment/Plan Assessment/Plan (Tele-ICU Physician , consultation as per request of PCP Service provided via interactive audio and video telecommunications E-CARE system to a patient admitted to ICU bed in [facility]. Available chart/ vitals / labs / Images reviewed H&P is from ER notes Patient's information available about PMH, Shx, Fhx allergy reviewed inEMR. ROS as per chart and RN report Now in ICU, hemodynamically stable Video assessment done using teleICU camera, rest of exam as per RN - patient lying comfortably in bed, vss Discussed with RN. Hospital course: 06/15 to ICU from ER - hypotensiove , DOMINGO , syncope , ? infection A/P Hypotensive , early shock - received 30ml/kg with improvement o fvitals , lactate WNL - cont to follow up no pressors bp stable now repeat la in am repeat PCT in am cultures drawn DOMINGO - hypotenison , dehydration - cont fluid resuscitation - as per ER MD Norbert starr " patient in the past hasn't tolerated rapid and large amounts of fluids" fluids order per PCP syncope inER 20 sec - no arrythmia reported , ? hypoperfusion - less likely PE ( on eliquis suspected infection - CXR clear , but patient reported cough - started empiricaly on abx repeat cxr in am cultures labs abx cefepime Amnemia - chronic - follow Thrombocytopenis 88 - new will need to re-eval if need tocont Eliquis - probably ok to hold today consider heme consult repeat labs in am and reassess Lines : Port catheter is present on right , (Central Line Necessity Reviewed) Ayala Nutrition: npo for now Analgesia: not needed Anxiety/ delirium VTE Prophylaxis: scd Stress Ulcer Prophylaxis: not needed Plans in collaboration with bedside consultants and IM MDs. Discussed with RN to reach out if any questions or concerns A total of 15_ minutes of critical care time was devoted to this patient today, required to treat and/or prevent further deterioration of critical care condition ( as above ) . I am remotely monitoring this patient from another state. I am unable to do the bedside exam, and history/physical and pertinent information is taken from other notes in the computer and bedside staff. . Critical Care: Critically Ill Patient FACUNDO ISAAC DO June 15, 2022 20:21
[2022-06-15] MEDS ORDERED: BENZONATATE 100 MG (TESSALON) CAPSULE PO ONE ×2 (23:39→23:45)
[2022-06-15] MEDS ORDERED: morphine ER 30 MG (MS CONTIN) TAB PO ONE ×2 (23:39→23:45)
[2022-06-16] MEDS: NS IV 1000 ML 1,000 ML IV SCH ×4 (01:04→23:01)
[2022-06-16 02:53] LABS: BASOPHILS % (AUTO) 0 % (0-10); MONOCYTES # (AUTO) 0.2 10^3/uL (0.0-1.0); MONOCYTES % (AUTO) 7 % (0-12)
[2022-06-16 02:55] LABS: EOSINOPHILS # (AUTO) 0.3 10^3/uL (0.0-0.3); EOSINOPHILS % (AUTO) 10 % (0-10); HEMATOCRIT 25 % (35-52); HEMOGLOBIN 8.7 g/dL (11.5-16.0); LYMPHOCYTES # (AUTO) 0.2 10^3/uL (1.0-4.0); LYMPHOCYTES % (AUTO) 6 % (12-44); MEAN CORPUSCULAR HEMOGLOBIN 36 pg (25-34); MEAN CORPUSCULAR HGB CONC 35 g/dL (32-36); MEAN CORPUSCULAR VOLUME 104 fL (80-99); MEAN PLATELET VOLUME 10.3 fL (9.0-12.2); NEUTROPHILS # (AUTO) 2.6 10^3/uL (1.8-7.8); NEUTROPHILS % (AUTO) 77 % (42-75); PLATELET COUNT 69 10^3/uL (130-400); WHITE BLOOD COUNT 3.3 10^3/uL (4.3-11.0)
[2022-06-16 03:10] LABS: ALBUMIN 2.7 GM/DL (3.2-4.5); POTASSIUM 4.1 MMOL/L (3.6-5.0)
[2022-06-16 03:13] LABS: TOTAL PROTEIN 4.6 GM/DL (6.4-8.2)
[2022-06-16 03:14] LABS: BILIRUBIN,TOTAL 0.4 MG/DL (0.1-1.0)
[2022-06-16] MEDS ORDERED: guaiFENesin/CODEINE (ROBITUSSIN AC) 10ML UDC PO ONE (03:15)
[2022-06-16 03:16] LABS: CREATININE SERUM 1.81 MG/DL (0.60-1.30); PHOSPHORUS 2.8 MG/DL (2.3-4.7)
[2022-06-16] MEDS: POTASSIUM CL 10MEQ/50ML IVPB 50 ML IV SCH (03:17)
[2022-06-16] MEDS: KCL 20 MEQ TAB (K-DUR) PO SCH (03:17)
[2022-06-16 03:19] LABS: MAGNESIUM 1.5 MG/DL (1.6-2.4)
[2022-06-16] MEDS: MAGNESIUM 1 GM/100 ML IVPB 100 ML IV SCH ×5 (03:21→07:24)
[2022-06-16] MEDS ORDERED: guaiFENesin/DM (ROBITUSSIN DM) 10 ML UDC ONE (03:39)
[2022-06-16] MEDS ORDERED: MAGNESIUM 1 GM/100 ML IVPB 400 ML IV ONE (03:39)
[2022-06-16] MEDS ORDERED: guaiFENesin/CODEINE (ROBITUSSIN AC) 10ML UDC ONE (03:46)
[2022-06-16] MEDS: CEFEPIME INJECTION 1,000 MG in NS (IVPB) 50 ML IV SCH ×2 (06:42→18:15)
--- NOTE | 2022-06-16 07:35 | Tele-ICU Progress Note ---
Progress Note (Tele-ICU Physician , consultation as per request of PCP Service provided via interactive audio and video telecommunications E-CARE system to a patient admitted to ICU bed in [facility]. Available chart/ vitals / labs / Images reviewed H&P is from ER notes Patient's information available about PMH, Shx, Fhx allergy reviewed inEMR. ROS as per chart and RN report Now in ICU, hemodynamically stable Video assessment done using teleICU camera, rest of exam as per RN - patient lying comfortably in bed, vss Discussed with RN. Hospital course: 06/15 to ICU from ER - hypotensiove , DOMINGO , syncope , ? infection A/P Hypotensive , early shock - received 30ml/kg with improvement o fvitals , lactate WNL - cont to follow up no pressors bp stable now repeat la in am repeat PCT in am cultures drawn DOMINGO - hypotenison , dehydration - cont fluid resuscitation - as per ER MD - matty " patient in the past hasn't tolerated rapid and large amounts of fluids" fluids order per PCP syncope inER 20 sec - no arrythmia reported , ? hypoperfusion - less likely PE ( on eliquis suspected infection - CXR clear , but patient reported cough - started empiricaly on abx repeat cxr in am cultures labs abx cefepime Amnemia - chronic - follow Thrombocytopenis 88 - new will need to re-eval if need tocont Eliquis - probably ok to hold today consider heme consult repeat labs in am and reassess Lines : Port catheter is present on right , (Central Line Necessity Reviewed) Ayala Nutrition: npo for now Analgesia: not needed Anxiety/ delirium VTE Prophylaxis: scd Stress Ulcer Prophylaxis: not needed Plans in collaboration with bedside consultants and IM MDs. Discussed with RN to reach out if any questions or concerns A total of 15_ minutes of critical care time was devoted to this patient today, required to treat and/or prevent further deterioration of critical care condition ( as above ) . I am remotely monitoring this patient from another state. I am unable to do the bedside exam, and history/physical and pertinent information is taken from other notes in the computer and bedside staff. . Focused Exam Sepsis Stage: Severe Sepsis Lactate Level 06/15/22 15:58: Lactic Acid Level 1.62 Height, Weight, BMI Height: 5'1.00" Weight: 127lbs. oz. 57.806779ny; 157.22 BMI Method:Stated TARA KC MD June 16, 2022 07:35
--- NOTE | 2022-06-16 08:17 | Diagnostic Imaging Report ---
EXAMINATION: Chest 1 view HISTORY: Shortness of breath COMPARISON: 06/15/2022 FINDINGS: The lungs are clear without edema or pneumonia. No pleural effusion or pneumothorax. Heart size is normal. Right port catheter tip terminates in the superior vena cava. IMPRESSION: 1. Clear lungs. Dictated by: Dictated on workstation # [id number]
[2022-06-16] MEDS ORDERED: BENZONATATE 100 MG (TESSALON) CAPSULE PO PRN (10:30)
--- NOTE | 2022-06-16 13:04 | Tele-ICU Progress Note ---
Subjective Date Seen by a Provider: June 16, 2022 Subjective/Events-last exam (Tele-ICU Physician , Progress Note Service provided via interactive audio and video telecommunications E-CARE system to a patient admitted to ICU bed in [facility]. Patient is seen today due to persistent need of ICU care Available chart/ vitals / labs / Images reviewed Video assessment done using teleICU camera, rest of exam as per RN Discussed with RN Events overnight : HPI: 61y/o M hx of pancreatic cancer s/p whipple procedure/bilateral ureter stent presented from onc clinic 2/2 low hemoglobin of 3.9. Surgery consulted and planning for inpatient workup to r/o GI bleed. Subj: Hemoglobin this AM 6.8. No complaints. Plans for EGD today. Remains hemodynamically stable A/P Anemia of acute blood loss: Etiology unclear, baseline hemoglobin 8 -NPO - transfusion 1 uPrbc - -Cont IV PPI Pancreatic Cancer s/p Whipple - receiving chemo every other week Pancytopenia - suspected due to chemo -Transfuse for plt < 50 and hgb < 7 Recent Nephrolithiasis -s/p ureteral stents Recent DOMINGO 2/2 above - no lab , will order BMP when re-check Hb Lines : , (Central Line Necessity Reviewed) Ayala: OG: Nutrition: Analgesia: Anxiety/ delirium VTE Prophylaxis: NA Stress Ulcer Prophylaxis: ppi Plans in collaboration with bedside consultants and IM MDs. Discussed with RN to reach out if any questions or concerns A total of 31 minutes of critical care time was devoted to this patient today, required to treat and/or prevent further deterioration of critical care condition (as above). I am remotely monitoring this patient from another state. I am unable to do the bedside exam, and history/physical and pertinent information is taken from other notes in the computer and bedside staff. . Sepsis Event Evaluation Height, Weight, BMI Height: 5'1.00" Weight: 127lbs. oz. 57.969531lm; 24.49 BMI Method:Stated Focused Exam Lactate Level 06/15/22 15:58: Lactic Acid Level 1.62 Exam Exam Patient acknowledged, consented, and participated in this virtual visit which was conducted using real time audio/video Vital Signs Date Time Temp Pulse Resp B/P (MAP) Pulse Ox O2 Delivery O2 Flow Rate FiO2 06/16/22 12:31 70 06/16/22 12:00 80 16 95/64 (74) 98 Room Air 06/16/22 11:06 36.3 06/16/22 11:00 106 90/56 (67) 95 Room Air 06/16/22 10:00 78 30 102/66 (78) 97 Room Air 06/16/22 09:00 74 21 85/49 (61) 94 Room Air 06/16/22 08:01 97 Room Air 06/16/22 08:00 64 16 98/52 (67) 97 Room Air 06/16/22 07:28 62 06/16/22 07:00 61 85/51 (62) 95 Room Air 06/16/22 06:44 102/56 (71) 06/16/22 06:00 62 85/56 (66) 96 Room Air 06/16/22 05:00 64 13 90/55 (65) 94 Room Air 06/16/22 04:00 63 16 91/59 (73) 95 Room Air 06/16/22 03:48 37.2 Room Air 06/16/22 03:45 98 Room Air 06/16/22 03:00 67 16 96/58 (72) 97 Room Air 06/16/22 02:00 64 20 96/61 (76) 97 Room Air 06/16/22 01:00 61 17 98/63 (80) 95 Room Air 06/16/22 01:00 61 06/16/22 00:00 65 24 100/67 (78) 96 Room Air 06/15/22 23:20 99 Room Air 06/15/22 23:20 36.9 Room Air 06/15/22 23:00 63 19 93/64 (77) 98 Room Air 06/15/22 22:00 63 16 98/64 (79) 95 Room Air 06/15/22 21:00 77 28 91/56 (66) 96 Room Air 06/15/22 20:30 71 14 102/61 (75) 97 Room Air 06/15/22 20:15 70 23 96/66 (83) 97 Room Air 06/15/22 20:00 67 19 88/57 (76) 96 Room Air 06/15/22 19:52 98 Room Air 06/15/22 19:45 70 36 99/56 (71) 97 Room Air 06/15/22 19:35 36.6 78 100 21 06/15/22 19:30 36.6 78 20 100/81 (87) 100 Room Air 06/15/22 19:15 90 18 101/63 (82) 99 Room Air 06/15/22 19:00 72 06/15/22 19:00 72 18 95/72 (84) 95 Room Air 06/15/22 18:50 36.3 75 18 117/71 (86) 100 Room Air 06/15/22 17:50 36.1 74 16 101/61 100 Room Air 06/15/22 15:26 36.1 85 16 103/55 (71) 97 Room Air I & O 06/16/22 06:59 Intake Total 2425 ml Output Total 1500 ml Balance 925 ml Height & Weight Height: 5'1.00" Weight: 127lbs. oz. 57.896270df; 24.49 BMI Method:Stated General Appearance: No Apparent Distress Capillary Refill: Less Than 3 Seconds Gastrointestinal: normal bowel sounds, non tender, soft; No distended, No guar ding, No rebound Results Lab Laboratory Tests 06/15/22 15:58 06/16/22 02:45 Assessment/Plan Assessment/Plan . TARA KC MD June 16, 2022 13:04
--- NOTE | 2022-06-16 14:29 | History & Physical ---
HPI History of Present Illness: 71 yo F with multiple myeloma that presented to ER with syncopal episode and found to be profoundly hypotensive. States that she has had a cough since last but denies any fever or chills. She lives alone and has not been around anyone who has been sick. She is currently undergoing treatments weekly and she was due for treatment yesterday but did not go because she was not feeling well. She has had to have IVFs in the past due to hypotension. States that she had not taken her blood pressure meds for the last 2 days. Denies any chest pain, abdominal pain, N/V. Exam Limitations: no limitations Date seen by provider: June 16, 2022 Time Seen by Provider: 09:00 Attending Physician Geneva Sigala Aprn PCP Admitting Physician: Rick Suggs MD Attending Physician: Rick Suggs MD Consult Date of Admission June 15, 2022 at 18:35 Home Medications Home Medications Reviewed patient Home Medication Reconciliation performed by pharmacy medication reconciliations solar installation technician and/or nursing. Patients Allergies have been reviewed. Allergies Coded Allergies: Sulfa (Sulfonamide Antibiotics) (Verified Allergy, Unknown, hives, 05/24/18) latex (Verified Allergy, Unknown, anaphylaxis, 05/24/18) midazolam (Verified Allergy, Unknown, 08/29/21) vancomycin (Verified Allergy, Unknown, hives, 05/24/18) PBI-[id number]-[id number] Hx Patient Social History Smoking Status: Never a Smoker 2nd Hand Smoke Exposure: No Recent Hopitalizations: No Alcohol Use?: No Have you traveled recently?: No Immunizations Up To Date Influenza Vaccine Up-to-Date: Yes; Up-to-Date First/Initial COVID19 Vaccinat: pt unable to recall which one Second COVID19 Vaccination Luis: pt unable to recall which one Third COVID19 Vaccination Date: pt unable to recall which one Past Medical History Chronic Pain Multiple Myeloma Hypothyroidism GERD Family Medical History Significant Family History: Cancer, Stroke Review of Systems (CHC) Constitutional: dizziness; No fever; malaise EENTM: no symptoms reported; No mouth pain, No nose congestion, No nose pain, No throat pain Respiratory: cough, dyspnea on exertion; No orthopnea Cardiovascular: no symptoms reported; No chest pain, No edema, No palpitations Gastrointestinal: no symptoms reported; No abdominal pain, No constipation, No diarrhea; loss of appetite; No nausea, No vomiting Genitourinary: no symptoms reported; No dysuria, No frequency, No hematuria Musculoskeletal: back pain Skin: no symptoms reported Psychiatric/Neurological: Anxiety, Depressed Reviewed Test Results Reviewed Test Results Lab Laboratory Tests Test 06/16/22 02:45 Range/Units White Blood Count 3.3 L 4.3-11.0 10^3/uL Red Blood Count 2.40 L 3.80-5.11 10^6/uL Hemoglobin 8.7 L 11.5-16.0 g/dL Hematocrit 25 L 35-52 % Mean Corpuscular Volume 104 H 80-99 fL Mean Corpuscular Hemoglobin 36 H 25-34 pg Mean Corpuscular Hemoglobin Concent 35 32-36 g/dL Red Cell Distribution Width 12.8 10.0-14.5 % Platelet Count 69 L 130-400 10^3/uL Mean Platelet Volume 10.3 9.0-12.2 fL Immature Granulocyte % (Auto) 0 % Neutrophils (%) (Auto) 77 H 42-75 % Lymphocytes (%) (Auto) 6 L 12-44 % Monocytes (%) (Auto) 7 0-12 % Eosinophils (%) (Auto) 10 0-10 % Basophils (%) (Auto) 0 0-10 % Neutrophils # (Auto) 2.6 1.8-7.8 10^3/uL Lymphocytes # (Auto) 0.2 L 1.0-4.0 10^3/uL Monocytes # (Auto) 0.2 0.0-1.0 10^3/uL Eosinophils # (Auto) 0.3 0.0-0.3 10^3/uL Basophils # (Auto) 0.0 0.0-0.1 10^3/uL Immature Granulocyte # (Auto) 0.0 0.0-0.1 10^3/uL Percent Immature Platelet Fraction 2.6 0.0-7.6 % Sodium Level 135 135-145 MMOL/L Potassium Level 4.1 3.6-5.0 MMOL/L Chloride Level 112 #H 98-107 MMOL/L Carbon Dioxide Level 15 L 21-32 MMOL/L Anion Gap 12 5-14 MMOL/L Blood Urea Nitrogen 26 H 7-18 MG/DL Creatinine 1.81 H 0.60-1.30 MG/DL Estimat Glomerular Filtration Rate 30 BUN/Creatinine Ratio 14 Glucose Level 74 70-105 MG/DL Calcium Level 8.0 L 8.5-10.1 MG/DL Corrected Calcium 9.0 8.5-10.1 MG/DL Phosphorus Level 2.8 2.3-4.7 MG/DL Magnesium Level 1.5 L 1.6-2.4 MG/DL Total Bilirubin 0.4 0.1-1.0 MG/DL Aspartate Amino Transf (AST/SGOT) 16 5-34 U/L Alanine Aminotransferase (ALT/SGPT) 13 0-55 U/L Alkaline Phosphatase 35 L 40-136 U/L Total Protein 4.6 L 6.4-8.2 GM/DL Albumin 2.7 L 3.2-4.5 GM/DL Physical Exam-(CHC) Physical Exam Vital Signs VS - Last 72 Hours, by Label 06/15/22 06/15/22 06/15/22 06/15/22 15:26 17:50 18:50 19:00 Temp 36.1 36.1 36.3 Pulse 85 74 75 72 Resp 16 16 18 18 B/P (MAP) 103/55 (71) 101/61 117/71 (86) 95/72 (84) Pulse Ox 97 100 100 95 O2 Delivery Room Air Room Air Room Air Room Air 06/15/22 06/15/22 06/15/22 06/15/22 19:00 19:15 19:30 19:35 Temp 36.6 36.6 Pulse 72 90 78 78 Resp 18 20 B/P (MAP) 101/63 (82) 100/81 (87) Pulse Ox 99 100 100 O2 Delivery Room Air Room Air FiO2 21 06/15/22 06/15/22 06/15/22 06/15/22 19:45 19:52 20:00 20:15 Pulse 70 67 70 Resp 36 19 23 B/P (MAP) 99/56 (71) 88/57 (76) 96/66 (83) Pulse Ox 97 98 96 97 O2 Delivery Room Air Room Air Room Air Room Air 06/15/22 06/15/22 06/15/22 06/15/22 20:30 21:00 22:00 23:00 Pulse 71 77 63 63 Resp 14 28 16 19 B/P (MAP) 102/61 (75) 91/56 (66) 98/64 (79) 93/64 (77) Pulse Ox 97 96 95 98 O2 Delivery Room Air Room Air Room Air Room Air 06/15/22 06/15/22 06/16/22 06/16/22 23:20 23:20 00:00 01:00 Temp 36.9 Pulse 65 61 Resp 24 B/P (MAP) 100/67 (78) Pulse Ox 99 96 O2 Delivery Room Air Room Air Room Air 06/16/22 06/16/22 06/16/22 06/16/22 01:00 02:00 03:00 03:45 Pulse 61 64 67 Resp 17 20 16 B/P (MAP) 98/63 (80) 96/61 (76) 96/58 (72) Pulse Ox 95 97 97 98 O2 Delivery Room Air Room Air Room Air Room Air 06/16/22 06/16/22 06/16/22 06/16/22 03:48 04:00 05:00 06:00 Temp 37.2 Pulse 63 64 62 Resp 16 13 B/P (MAP) 91/59 (73) 90/55 (65) 85/56 (66) Pulse Ox 95 94 96 O2 Delivery Room Air Room Air Room Air Room Air 06/16/22 06/16/22 06/16/22 06/16/22 06:44 07:00 07:28 08:00 Pulse 61 62 64 Resp 16 B/P (MAP) 102/56 (71) 85/51 (62) 98/52 (67) Pulse Ox 95 97 O2 Delivery Room Air Room Air 06/16/22 06/16/22 06/16/22 06/16/22 08:01 09:00 10:00 11:00 Pulse 74 78 106 Resp 21 30 B/P (MAP) 85/49 (61) 102/66 (78) 90/56 (67) Pulse Ox 97 94 97 95 O2 Delivery Room Air Room Air Room Air Room Air 06/16/22 06/16/22 06/16/22 06/16/22 11:06 12:00 12:00 12:31 Temp 36.3 Pulse 80 70 Resp 16 B/P (MAP) 95/64 (74) Pulse Ox 98 97 O2 Delivery Room Air Room Air 06/16/22 06/16/22 06/16/22 06/16/22 13:00 14:00 15:00 16:00 Pulse 75 70 72 71 Resp 20 13 29 20 B/P (MAP) 92/54 (67) 96/62 (73) 105/63 (77) 101/61 (74) Pulse Ox 94 94 97 95 O2 Delivery Room Air Room Air Room Air Room Air 06/16/22 06/16/22 16:00 16:36 Temp 36.0 Pulse Ox 97 O2 Delivery Room Air Capillary Refill : Less Than 3 Seconds General Appearance: WD/WN, no apparent distress, thin HEENT: PERRL/EOMI Neck: non-tender, full range of motion, supple Respiratory: chest non-tender, lungs clear, normal breath sounds, no respiratory distress, no accessory muscle use; No crackles, No rhonchi, No wheezing Cardiovascular: normal peripheral pulses, regular rate, rhythm, no edema, no murmur Gastrointestinal: normal bowel sounds, non tender, soft Back: no CVA tenderness, no vertebral tenderness Extremities: normal range of motion, non-tender, normal inspection, no pedal edema, no calf tenderness, normal capillary refill Neurologic/Psychiatric: supply chain generalist II-XII nml as tested, no motor/sensory deficits, alert, normal mood/affect, oriented x 3 Skin: normal color, warm/dry Lymphatic: no adenopathy Assessment/Plan Assessment/Plan Admission Status: Inpatient Order (span 2 midnights) Reason for Inpatient Admission: Requiring ICU care with frequent monitoring, high risk of decompensation due to current chemo (1) Hypotension Status: Acute Assessment & Plan: - IVFs, off blood pressure meds x 3 days now, recent h/o requiring IVFs after chemo for hypotension, Broad spectrum antibiotics, normal LA, no signs of acute infection Qualifiers: Qualified Codes: I95.89 - Other hypotension; E86.1 - Hypovolemia (2) DOMINGO (acute kidney injury) Status: Acute Assessment & Plan: - improving, will continue to monitor (3) Cough Status: Acute Qualifiers: Qualified Codes: R05.1 - Acute cough (4) Thrombocytopenia Status: Acute Assessment & Plan: - Will continue to monitor, may need hem consult if not improving tomorrow (5) Multiple myeloma Status: Acute Assessment & Plan: - Missed Chemo on 06/15 due to acute illness Qualifiers: Qualified Codes: C90.00 - Multiple myeloma not having achieved remission (6) Syncope Status: Acute Assessment & Plan: - No further episodes since admission Qualifiers: Qualified Codes: R55 - Syncope and collapse RICK SUGGS MD June 16, 2022 14:29
[2022-06-16] MEDS ORDERED: GABA-490 PO (15:39)
[2022-06-16] MEDS ORDERED: LENA5CAP PO (15:39)
[2022-06-16] MEDS ORDERED: ZOLP5TAB PO (15:39)
[2022-06-16] MEDS ORDERED: SENN8.6T62 PO (15:39)
[2022-06-16] MEDS ORDERED: DOXY100C5 PO (15:39)
[2022-06-16] MEDS ORDERED: ALPR0.254 PO (15:39)
[2022-06-16] MEDS ORDERED: MORP-69 PO (15:39)
[2022-06-16] MEDS ORDERED: AMLO2.5T4 PO (15:39)
[2022-06-16] MEDS ORDERED: CALC-147 PO (15:39)
[2022-06-16] MEDS ORDERED: SCOP1PAT10 TD (15:39)
[2022-06-16] MEDS ORDERED: POTA10TA PO ×2 (15:39)
[2022-06-16] MEDS ORDERED: PROM25TA14 PO (15:39)
[2022-06-16] MEDS ORDERED: ROSU10TA28 PO (15:39)
[2022-06-16] MEDS ORDERED: AMOX1TAB11 PO (15:39)
[2022-06-16] MEDS ORDERED: LOSA25TA41 PO (15:39)
[2022-06-16] MEDS ORDERED: METO5TAB2 PO (15:39)
[2022-06-16] MEDS ORDERED: METH4TAB11 PO (15:47)
[2022-06-16] MEDS ORDERED: morphine IMMEDIATE RELEASE 15 MG TABLET PO PRN (16:45)
[2022-06-16] MEDS: guaiFENesin/DM (ROBITUSSIN DM) 10 ML UDC PO PRN ×2 (17:11→23:04)
[2022-06-16] MEDS: ALPRAZolam 0.25 MG (XANAX) TAB PO PRN (19:26)
[2022-06-16] MEDS ORDERED: ZOLPIDEM 5 MG (AMBIEN) TAB ONE (19:57)
[2022-06-16] MEDS: ACYCLOVIR 400 MG TABLET (ZOVIRAX) PO SCH (19:59)
[2022-06-16] MEDS: GABAPENTIN 400 MG (NEURONTIN) CAP PO SCH (20:00)
[2022-06-16] MEDS: BENZONATATE 100 MG (TESSALON) CAPSULE PO SCH (20:00)
[2022-06-16] MEDS: morphine ER 30 MG (MS CONTIN) TAB PO SCH (20:00)
[2022-06-16] MEDS: APIXABAN 5 MG (ELIQUIS) TABLET PO SCH (20:00)
[2022-06-16] MEDS ORDERED: ZOLPIDEM 5 MG (AMBIEN) TAB PO NR (20:00)
[2022-06-17 02:50] LABS: BASOPHILS % (AUTO) 0 % (0-10); EOSINOPHILS # (AUTO) 0.3 10^3/uL (0.0-0.3); HEMOGLOBIN 7.8 g/dL (11.5-16.0)
[2022-06-17 02:51] LABS: EOSINOPHILS % (AUTO) 12 % (0-10); HEMATOCRIT 22 % (35-52); LYMPHOCYTES # (AUTO) 0.2 10^3/uL (1.0-4.0); LYMPHOCYTES % (AUTO) 7 % (12-44); MEAN CORPUSCULAR HEMOGLOBIN 37 pg (25-34); MEAN CORPUSCULAR HGB CONC 36 g/dL (32-36); MEAN CORPUSCULAR VOLUME 105 fL (80-99); MEAN PLATELET VOLUME 10.6 fL (9.0-12.2); MONOCYTES # (AUTO) 0.2 10^3/uL (0.0-1.0); MONOCYTES % (AUTO) 8 % (0-12); NEUTROPHILS # (AUTO) 1.6 10^3/uL (1.8-7.8); NEUTROPHILS % (AUTO) 72 % (42-75); PLATELET COUNT 48 10^3/uL (130-400); WHITE BLOOD COUNT 2.2 10^3/uL (4.3-11.0)
[2022-06-17 02:58] LABS: ALBUMIN 2.4 GM/DL (3.2-4.5)
[2022-06-17 03:00] LABS: CALCIUM 7.1 MG/DL (8.5-10.1)
[2022-06-17 03:01] LABS: TOTAL PROTEIN 4.1 GM/DL (6.4-8.2)
[2022-06-17 03:03] LABS: BILIRUBIN,TOTAL 0.5 MG/DL (0.1-1.0)
[2022-06-17 03:04] LABS: PHOSPHORUS 1.9 MG/DL (2.3-4.7)
[2022-06-17 03:05] LABS: CREATININE SERUM 1.19 MG/DL (0.60-1.30)
[2022-06-17] MEDS: POTASSIUM CL 10MEQ/50ML IVPB 50 ML IV SCH ×7 (03:05→10:13)
[2022-06-17] MEDS: KCL 20 MEQ TAB (K-DUR) PO SCH (03:05)
[2022-06-17 03:07] LABS: MAGNESIUM 1.9 MG/DL (1.6-2.4)
[2022-06-17] MEDS: MAGNESIUM 1 GM/100 ML IVPB 100 ML IV SCH ×3 (03:10→04:19)
[2022-06-17] MEDS: CEFEPIME INJECTION 1,000 MG in NS (IVPB) 50 ML IV SCH ×3 (05:24→20:44)
[2022-06-17] MEDS: THYROID (ARMOUR) 60 MG TABLET PO SCH (06:00)
[2022-06-17] MEDS: guaiFENesin/DM (ROBITUSSIN DM) 10 ML UDC PO PRN (07:53)
[2022-06-17] MEDS: ACYCLOVIR 400 MG TABLET (ZOVIRAX) PO SCH ×2 (07:53→20:40)
[2022-06-17] MEDS: ALPRAZolam 0.25 MG (XANAX) TAB PO PRN (07:53)
[2022-06-17] MEDS: BENZONATATE 100 MG (TESSALON) CAPSULE PO SCH ×3 (07:53→20:40)
[2022-06-17] MEDS ORDERED: PROMETHAZINE 25 MG (PHENERGAN) TAB PO PRN (08:00)
[2022-06-17] MEDS ORDERED: METOCLOPRAMIDE 5 MG (REGLAN) TAB PO PRN (08:00)
[2022-06-17] MEDS ORDERED: PATIENT MAY USE OWN MED,SINGLE MED PO SCH (08:15)
[2022-06-17] MEDS: PANTOPRAZOLE 40 MG (PROTONIX) TAB PO SCH (08:48)
[2022-06-17] MEDS: APIXABAN 5 MG (ELIQUIS) TABLET PO SCH ×2 (08:48→20:41)
[2022-06-17] MEDS: morphine ER 30 MG (MS CONTIN) TAB PO SCH ×2 (08:48→20:40)
[2022-06-17] MEDS ORDERED: THYROID PORK 30 MG PO SCH (09:00)
[2022-06-17] MEDS ORDERED: MIDODRINE 10 MG (PROAMATINE) TAB PO SCH (09:00)
[2022-06-17] MEDS ORDERED: METHYLPREDNISOLONE 4MG TABLET PO SCH (09:00)
[2022-06-17] MEDS ORDERED: SCOPOLAMINE 1.5 MG (TRANSDERM-SCOP) PATCH TD SCH (09:00)
--- NOTE | 2022-06-17 09:18 | Tele-ICU Progress Note ---
Subjective Date Seen by a Provider: June 17, 2022 Time Seen by a Provider: 09:18 Subjective/Events-last exam 1 Sepsis Event Evaluation Height, Weight, BMI Height: 5'1.00" Weight: 127lbs. oz. 57.246246ta; 24.36 BMI Method:Stated Focused Exam Lactate Level 06/15/22 15:58: Lactic Acid Level 1.62 Exam Exam Patient acknowledged, consented, and participated in this virtual visit which was conducted using real time audio/video Vital Signs Date Time Temp Pulse Resp B/P (MAP) Pulse Ox O2 Delivery O2 Flow Rate FiO2 06/17/22 08:00 36.7 06/17/22 08:00 80 14 83/45 (58) 98 Room Air 06/17/22 07:07 70 06/17/22 07:00 71 17 95/50 (65) 97 Room Air 06/17/22 06:00 71 92/57 (69) 96 Room Air 06/17/22 05:00 67 89/54 (66) 92 Room Air 06/17/22 04:00 69 19 90/57 (68) 93 Room Air 06/17/22 03:48 36.5 06/17/22 03:10 99 Room Air 06/17/22 03:00 69 34 91/53 (66) 94 Room Air 06/17/22 02:00 69 18 88/55 (68) 92 Room Air 06/17/22 01:00 68 28 99/65 (77) 95 Room Air 06/17/22 01:00 68 06/17/22 00:00 69 20 100/60 (73) 96 Room Air 06/16/22 23:00 97 Room Air 06/16/22 23:00 36.5 69 18 95/75 (82) 97 Room Air 06/16/22 22:00 65 104/63 (82) 99 Room Air 06/16/22 21:00 85 111/68 (82) 99 Room Air 06/16/22 20:00 90 29 122/71 (88) 97 Room Air 06/16/22 19:30 79 121/71 (93) 97 Room Air 06/16/22 19:20 99 Room Air 06/16/22 19:16 98 Room Air 06/16/22 19:00 37.2 75 20 106/61 (76) 98 Room Air 06/16/22 19:00 80 5/9/23 17:00 71 17 117/68 (84) 98 Room Air 06/16/22 16:36 36.0 06/16/22 16:00 97 Room Air 06/16/22 16:00 71 20 101/61 (74) 95 Room Air 06/16/22 15:00 72 29 105/63 (77) 97 Room Air 06/16/22 14:00 70 13 96/62 (73) 94 Room Air 06/16/22 13:00 75 20 92/54 (67) 94 Room Air 06/16/22 12:31 70 06/16/22 12:00 97 Room Air 06/16/22 12:00 80 16 95/64 (74) 98 Room Air 06/16/22 11:06 36.3 06/16/22 11:00 106 90/56 (67) 95 Room Air 06/16/22 10:00 78 30 102/66 (78) 97 Room Air I & O 06/17/22 07:00 Intake Total 4780 ml Output Total 3000 ml Balance 1780 ml Height & Weight Height: 5'1.00" Weight: 127lbs. oz. 57.057252be; 24.36 BMI Method:Stated General Appearance: No Apparent Distress Capillary Refill: Less Than 3 Seconds Gastrointestinal: normal bowel sounds, non tender, soft Results Lab Laboratory Tests 06/15/22 15:58 06/16/22 02:45 06/17/22 02:45 Assessment/Plan Assessment/Plan 1 DAVID MASTERS MD June 17, 2022 09:18
[2022-06-17] MEDS: ONDANSETRON 4 MG (ZOFRAN) ORAL DISSOLVE TAB PO PRN (09:23)
[2022-06-17] MEDS: NS IV 1000 ML 1,000 ML IV SCH (09:23)
[2022-06-17] MEDS ORDERED: KCL 20 MEQ TAB (K-DUR) PO NR (14:00)
[2022-06-17] MEDS: guaiFENesin/CODEINE (ROBITUSSIN AC) 10ML UDC PO PRN ×3 (14:07→22:02)
--- NOTE | 2022-06-17 16:38 | Progress Note ---
Subjective Subjective/Events-last exam Patient feels run down but denies any pain. States that she gets dizzy when she sits up in bed or trys to stand. Tolerating PO diet. Review of Systems General: Fatigue, Malaise Pulmonary: Dyspnea, Cough Cardiovascular: Other (heaviness in chest); No: Chest Pain Gastrointestinal: No: Nausea, Vomiting, Abdominal Pain, Diarrhea, Constipation Neurological: Weakness Focused Exam Lactate Level 06/15/22 15:58: Lactic Acid Level 1.62 Objective Exam Last Set of Vital Signs Vital Signs Date Time Temp Pulse Resp B/P (MAP) Pulse Ox O2 Delivery O2 Flow Rate FiO2 06/17/22 16:05 97 Room Air 06/17/22 16:00 68 12 115/68 (84) 06/17/22 15:57 36.1 06/15/22 19:35 21 Capillary Refill : Less Than 3 Seconds I&O Intake and Output 06/16/22 23:59 Intake Total 5850 ml Output Total 2675 ml Balance 3175 ml Intake Oral 1350 ml IV Total 4500 ml Output Urine Total 2675 ml General: Alert, Oriented X3, No Acute Distress Lungs: Clear to Auscultation, Normal Air Movement Heart: Regular Rate, No Murmurs Abdomen: Normal Bowel Sounds, Soft, No Tenderness, No Masses Extremities: No Edema, No Tenderness/Swelling Neuro: Normal Speech Results/Procedures Lab Laboratory Tests 06/17/22 02:45: White Blood Count 2.2L, Red Blood Count 2.10L, Hemoglobin 7.8L, Hematocrit 22L, Mean Corpuscular Volume 105H, Mean Corpuscular Hemoglobin 37H, Mean Corpuscular Hemoglobin Concent 36, Red Cell Distribution Width 12.8, Platelet Count 48L, Mean Platelet Volume 10.6, Immature Granulocyte % (Auto) 1, Neutrophils (%) (Auto) 72, Lymphocytes (%) (Auto) 7L, Monocytes (%) (Auto) 8, Eosinophils (%) (Auto) 12H, Basophils (%) (Auto) 0, Neutrophils # (Auto) 1.6L, Lymphocytes # (Auto) 0.2L, Monocytes # (Auto) 0.2, Eosinophils # (Auto) 0.3, Basophils # (Auto) 0.0, Immature Granulocyte # (Auto) 0.0, Percent Immature Platelet Fraction 2.9, Sodium Level 133L, Potassium Level 3.0L, Chloride Level 111H, Carbon Dioxide Level 15L, Anion Gap 7, Blood Urea Nitrogen 13, Creatinine 1.19, Estimat Glomerular Filtration Rate 49, BUN/Creatinine Ratio 11, Glucose Level 77, Calcium Level 7.1L, Corrected Calcium 8.4L, Phosphorus Level 1.9L, Magnesium Level 1.9, Total Bilirubin 0.5, Aspartate Amino Transf (AST/SGOT) 10, Alanine Aminotransferase (ALT/SGPT) 10, Alkaline Phosphatase 32L, Total Protein 4.1L, Albumin 2.4L 06/17/22 12:30: Potassium Level 3.9 Microbiology 06/15/22 MRSA Screen - Final, Complete MRSA not isolated 06/15/22 Blood Culture - Preliminary, Resulted No growth Assessment/Plan Assessment/Plan (1) Hypotension Status: Acute Assessment & Plan: - IVFs, off blood pressure meds x 3 days now, recent h/o requiring IVFs after chemo for hypotension, Broad spectrum antibiotics, normal LA, no signs of acute infection 06/17: Improving some, labs normal, continue cefepime Qualifiers: Qualified Codes: I95.89 - Other hypotension; E86.1 - Hypovolemia (2) Cough Status: Acute Assessment & Plan: 06/17: AB and cough suppressant Qualifiers: Qualified Codes: R05.1 - Acute cough (3) DOMINGO (acute kidney injury) Status: Resolved Assessment & Plan: - improving, will continue to monitor (4) Thrombocytopenia Status: Acute Assessment & Plan: - Will continue to monitor, may need hem consult if not improving tomorrow 06/17: Will continue to monitor, consider holding OAC (5) Multiple myeloma Status: Acute Assessment & Plan: - Missed Chemo on 06/15 due to acute illness Qualifiers: Qualified Codes: C90.00 - Multiple myeloma not having achieved remission (6) Syncope Status: Acute Assessment & Plan: - No further episodes since admission Qualifiers: Qualified Codes: R55 - Syncope and collapse RICK OLMOS MD June 17, 2022 16:38
[2022-06-17] MEDS: GABAPENTIN 400 MG (NEURONTIN) CAP PO SCH (20:40)
[2022-06-17] MEDS ORDERED: ZOLPIDEM 5 MG (AMBIEN) TAB ONE (20:54)
[2022-06-17] MEDS: ZOLPIDEM 5 MG (AMBIEN) TAB PO PRN (20:56)
[2022-06-18] MEDS: guaiFENesin/CODEINE (ROBITUSSIN AC) 10ML UDC PO PRN ×5 (02:22→23:59)
[2022-06-18 03:32] LABS: BASOPHILS % (AUTO) 0 % (0-10); EOSINOPHILS % (AUTO) 1 % (0-10); HEMATOCRIT 24 % (35-52); HEMOGLOBIN 8.3 g/dL (11.5-16.0); LYMPHOCYTES # (AUTO) 0.1 10^3/uL (1.0-4.0); LYMPHOCYTES % (AUTO) 5 % (12-44); MEAN CORPUSCULAR HEMOGLOBIN 37 pg (25-34); MEAN CORPUSCULAR HGB CONC 35 g/dL (32-36); MEAN CORPUSCULAR VOLUME 104 fL (80-99); MEAN PLATELET VOLUME 11.1 fL (9.0-12.2); MONOCYTES # (AUTO) 0.2 10^3/uL (0.0-1.0); MONOCYTES % (AUTO) 7 % (0-12); NEUTROPHILS # (AUTO) 2.2 10^3/uL (1.8-7.8); NEUTROPHILS % (AUTO) 87 % (42-75); PLATELET COUNT 54 10^3/uL (130-400); WHITE BLOOD COUNT 2.5 10^3/uL (4.3-11.0)
[2022-06-18 03:44] LABS: ALBUMIN 2.8 GM/DL (3.2-4.5); POTASSIUM 4.8 MMOL/L (3.6-5.0)
[2022-06-18 03:46] LABS: CALCIUM 8.2 MG/DL (8.5-10.1)
[2022-06-18 03:47] LABS: TOTAL PROTEIN 4.9 GM/DL (6.4-8.2)
[2022-06-18 03:49] LABS: BILIRUBIN,TOTAL 0.4 MG/DL (0.1-1.0)
[2022-06-18 03:50] LABS: CREATININE SERUM 1.28 MG/DL (0.60-1.30); PHOSPHORUS 2.4 MG/DL (2.3-4.7)
[2022-06-18] MEDS: POTASSIUM CL 10MEQ/50ML IVPB 50 ML IV SCH (03:50)
[2022-06-18] MEDS: KCL 20 MEQ TAB (K-DUR) PO SCH (03:51)
[2022-06-18 03:54] LABS: MAGNESIUM 2.2 MG/DL (1.6-2.4)
[2022-06-18] MEDS: MAGNESIUM 1 GM/100 ML IVPB 100 ML IV SCH (04:06)
[2022-06-18] MEDS: THYROID (ARMOUR) 60 MG TABLET PO SCH (05:42)
[2022-06-18] MEDS: CEFEPIME INJECTION 1,000 MG in NS (IVPB) 50 ML IV SCH ×3 (05:42→20:23)
[2022-06-18] MEDS: NS IV 1000 ML 1,000 ML IV SCH (05:42)
[2022-06-18] MEDS: ALPRAZolam 0.25 MG (XANAX) TAB PO PRN (07:28)
[2022-06-18] MEDS: ONDANSETRON 4 MG (ZOFRAN) ORAL DISSOLVE TAB PO PRN (07:28)
[2022-06-18] MEDS: morphine ER 30 MG (MS CONTIN) TAB PO SCH ×2 (09:02→20:23)
[2022-06-18] MEDS: PANTOPRAZOLE 40 MG (PROTONIX) TAB PO SCH (09:02)
[2022-06-18] MEDS: ACYCLOVIR 400 MG TABLET (ZOVIRAX) PO SCH ×2 (09:02→20:23)
[2022-06-18] MEDS: BENZONATATE 100 MG (TESSALON) CAPSULE PO SCH ×3 (09:02→20:22)
[2022-06-18] MEDS: APIXABAN 5 MG (ELIQUIS) TABLET PO SCH ×2 (09:02→20:23)
[2022-06-18 09:10] VITALS: BP_SYST 109; BP_SYST 113; BP_SYST 119; BP_DIAS 76; BP_DIAS 79; BP_DIAS 83
--- NOTE | 2022-06-18 09:14 | Tele-ICU Progress Note ---
Subjective Date Seen by a Provider: June 18, 2022 Time Seen by a Provider: 09:13 Subjective/Events-last exam (Tele-ICU Physician , Progress Note ) Service provided via interactive audio and video telecommunications E-CARE system to a patient admitted to ICU bed in [facility]. Patient is seen today due to persistent need of ICU care Available chart/ vitals / labs / Images reviewed Video assessment done using teleICU camera, rest of exam as per RN Discussed with RN Events overnight : Afebrile hemodynamically stable Respiratory -ra I/O = neg Drips: na 50 Pressors- no Hospital course: 06/15-71yo M- presented to ER due to back pain and SOB. CXR(-). Dx: DOMINGO, dehydration,hyponatremia, syncope in ER. 06/16 - ECHO WNL A/P Hypotensive - received IVF, still borderline -06/16 - ECHO WNL - possibel adrenal insufficiency - STEROIDS RESUMED 06/17 - DOING WELL DOMINGO - hypotenison , dehydration - RESOLVED syncope inER 20 sec - no arrythmia reported , ? hypoperfusion - less likely PE ( on eliquis will check orthostatics today suspected infection - CXR clear , but patient reported cough - started empiricaly on abx abx cefepime - cough suppressants Anemia - stable , no bleeding ,chronic - drop of Hb is most likely delutional -follow Thrombocytopenia 48 from 88 ( new onset + delutional - on Eliquis - monitor carefully MM - on treatment - onc consult Lines : Port catheter is present on right , (Central Line Necessity Reviewed) Ayala void Nutrition: ok po Analgesia: cotrooled Anxiety/ delirium VTE Prophylaxis:eliquis Stress Ulcer Prophylaxis: not needed, on ppi Plans in collaboration with bedside consultants and IM MDs. Discussed with RN to reach out if any questions or concerns Case and care daily discussed on multidisciplinary rounds ( RN, PharmD, Senior Cyber Security Analyst , Respiratory Therapy, bending shed worker ) A total of 20 minutes of critical care time was devoted to this patient today, required to treat and/or prevent further deterioration of critical care condition ( as above ) . I am remotely monitoring this patient from another state. I am unable to do the bedside exam, and history/physical and pertinent information is taken from other notes in the computer and bedside staff. Sepsis Event Evaluation Height, Weight, BMI Height: 5'1.00" Weight: 127lbs. oz. 57.875966ij; 24.88 BMI Method:Stated Focused Exam Lactate Level 06/15/22 15:58: Lactic Acid Level 1.62 Exam Exam Patient acknowledged, consented, and participated in this virtual visit which was conducted using real time audio/video Vital Signs Date Time Temp Pulse Resp B/P (MAP) Pulse Ox O2 Delivery O2 Flow Rate FiO2 06/18/22 07:39 36.4 06/18/22 07:00 49 06/18/22 06:00 46 23 124/91 (102) 97 Room Air 06/18/22 05:00 49 15 117/70 (86) 97 Room Air 06/18/22 04:00 52 17 117/73 (88) 97 Room Air 06/18/22 03:10 96 Room Air 06/18/22 03:00 60 15 112/72 (85) 97 Room Air 06/18/22 02:23 36.9 06/18/22 02:00 45 17 108/68 (81) 97 Room Air 06/18/22 01:00 60 06/18/22 01:00 56 16 123/66 (85) 97 Room Air 06/18/22 00:00 56 20 121/80 (94) 97 Room Air 06/17/22 23:20 98 Room Air 06/17/22 23:20 36.7 Room Air 06/17/22 23:00 59 20 110/71 (84) 96 Room Air 06/17/22 22:00 53 16 121/85 (97) 97 Room Air 06/17/22 21:00 58 21 130/79 (96) 98 Room Air 06/17/22 20:00 54 22 123/75 (91) 96 Room Air 06/17/22 19:05 99 Room Air 06/17/22 19:00 36.2 64 16 109/64 (79) 99 Room Air 06/17/22 19:00 60 15 136/79 (98) 96 Room Air 06/17/22 19:00 64 06/17/22 18:00 74 20 86/71 (76) 98 Room Air 06/17/22 17:00 67 23 96/67 (77) 98 Room Air 06/17/22 16:05 97 Room Air 06/17/22 16:00 68 12 115/68 (84) 97 Room Air 06/17/22 15:57 36.1 06/17/22 15:00 71 13 82/56 (65) 95 Room Air 06/17/22 14:00 77 28 96/64 (75) 96 Room Air 06/17/22 13:29 72 06/17/22 13:00 80 8 104/52 (69) 92 Room Air 06/17/22 12:44 94 Room Air 06/17/22 12:00 36.8 06/17/22 12:00 74 26 87/56 (66) 95 Room Air 06/17/22 11:00 85 7 90/62 (71) 92 Room Air 06/17/22 10:00 93 26 84/60 (68) 91 Room Air I & O 06/18/22 07:00 Intake Total 4395 ml Output Total 3875 ml Balance 520 ml Height & Weight Height: 5'1.00" Weight: 127lbs. oz. 57.602067vc; 24.88 BMI Method:Stated General Appearance: No Apparent Distress Capillary Refill: Less Than 3 Seconds Gastrointestinal: normal bowel sounds, non tender, soft Results Lab Laboratory Tests 06/17/22 02:45 06/17/22 12:30 06/18/22 03:27 Assessment/Plan Assessment/Plan 1 DAVID MASTERS MD June 18, 2022 09:14
[2022-06-18] MEDS ORDERED: polyethylene glycoL POWDER 17 GM (MIRALAX) PACK PO NR (10:00)
--- NOTE | 2022-06-18 11:42 | Progress Note ---
Subjective Subjective/Events-last exam Patient states that she is feeling much better today. She is wanting to try and get out of bed more today. appetite improved. Review of Systems General: Fatigue Pulmonary: No Dyspnea; Cough Cardiovascular: No: Chest Pain, Palpitations, Edema Gastrointestinal: No: Nausea, Vomiting, Abdominal Pain, Diarrhea, Constipation Neurological: Weakness, Other (dizziness) Focused Exam Lactate Level 06/15/22 15:58: Lactic Acid Level 1.62 Objective Exam Last Set of Vital Signs Vital Signs Date Time Temp Pulse Resp B/P (MAP) Pulse Ox O2 Delivery O2 Flow Rate FiO2 06/18/22 09:10 50 113/76 (88) 60 109/79 (89) 70 119/83 (95) 06/18/22 09:00 12 97 Room Air 06/18/22 07:39 36.4 06/15/22 19:35 21 Capillary Refill : Less Than 3 Seconds I&O Intake and Output 06/18/22 00:00 Intake Total 3625 ml Output Total 5000 ml Balance -1375 ml Intake Oral 1875 ml IV Total 1750 ml Output Urine Total 5000 ml General: Alert, Oriented X3, No Acute Distress Lungs: Clear to Auscultation, Normal Air Movement Heart: Regular Rate, No Murmurs Abdomen: Normal Bowel Sounds, Soft, No Tenderness, No Masses Extremities: No Edema, No Tenderness/Swelling Neuro: Normal Speech Psych/Mental Status: Mental Status NL, Mood NL Results/Procedures Lab Laboratory Tests 06/17/22 12:30: Potassium Level 3.9 06/18/22 03:27: Potassium Level 4.8, White Blood Count 2.5L, Red Blood Count 2.26L, Hemoglobin 8.3L, Hematocrit 24L, Mean Corpuscular Volume 104H, Mean Corpuscular Hemoglobin 37H, Mean Corpuscular Hemoglobin Concent 35, Red Cell Distribution Width 13.0, Platelet Count 54L, Mean Platelet Volume 11.1, Immature Granulocyte % (Auto) 0, Neutrophils (%) (Auto) 87H, Lymphocytes (%) (Auto) 5L, Monocytes (%) (Auto) 7, Eosinophils (%) (Auto) 1, Basophils (%) (Auto) 0, Neutrophils # (Auto) 2.2, Lymphocytes # (Auto) 0.1L, Monocytes # (Auto) 0.2, Eosinophils # (Auto) 0.0, Basophils # (Auto) 0.0, Immature Granulocyte # (Auto) 0.0, Sodium Level 133L, Chloride Level 114H, Carbon Dioxide Level 12L, Anion Gap 7, Blood Urea Nitrogen 13, Creatinine 1.28, Estimat Glomerular Filtration Rate 45, BUN/Creatinine Ratio 10, Glucose Level 134H, Calcium Level 8.2L, Corrected Calcium 9.2, Phosphorus Level 2.4, Magnesium Level 2.2, Total Bilirubin 0.4, Aspartate Amino Transf (AST/SGOT) 5, Alanine Aminotransferase (ALT/SGPT) 9, Alkaline Phosphatase 40, Total Protein 4.9L, Albumin 2.8L Microbiology 06/15/22 MRSA Screen - Final, Complete MRSA not isolated 06/15/22 Blood Culture - Preliminary, Resulted No growth Assessment/Plan Assessment/Plan (1) Hypotension Status: Acute Assessment & Plan: - IVFs, off blood pressure meds x 3 days now, recent h/o requiring IVFs after chemo for hypotension, Broad spectrum antibiotics, normal LA, no signs of acute infection 06/17: Improving some, labs normal, continue cefepime 06/18: Blood pressure improved, Dr Thorne recommends starting a steroid burst, transfer to Med/Surg and order PT Qualifiers: Qualified Codes: I95.89 - Other hypotension; E86.1 - Hypovolemia (2) Cough Status: Acute Assessment & Plan: 06/17: AB and cough suppressant Qualifiers: Qualified Codes: R05.1 - Acute cough (3) Thrombocytopenia Status: Acute Assessment & Plan: - Will continue to monitor, may need hem consult if not improving tomorrow 06/17: Will continue to monitor, consider holding OAC (4) DOMINGO (acute kidney injury) Status: Resolved Assessment & Plan: - improving, will continue to monitor (5) Multiple myeloma Status: Acute Assessment & Plan: - Missed Chemo on 06/15 due to acute illness Qualifiers: Qualified Codes: C90.00 - Multiple myeloma not having achieved remission (6) Syncope Status: Acute Assessment & Plan: - No further episodes since admission Qualifiers: Qualified Codes: R55 - Syncope and collapse (7) Physical debility Status: Acute Assessment & Plan: 06/18: PT, plan to d/c tomorrow if blood pressure stablizes and she is not dizzy getting up out of bed RICK OLMOS MD June 18, 2022 11:42
[2022-06-18] MEDS: predniSONE 20 MG TAB PO SCH (12:29)
[2022-06-18 15:05] VITALS: BP 115/85
--- NOTE | 2022-06-18 15:10 | Physical Therapy Evaluation ---
PT Evaluation-General Medical Diagnosis Admission Date June 15, 2022 at 18:35 Medical Diagnosis: Syncopal Episode, hypotensive Onset Date: June 15, 2022 Therapy Diagnosis Therapy Diagnosis: Gait deficit, strength deficit Height/Weight Height (Feet): 5 Height (Inches): 1.00 Weight (Pounds): 127 Precautions Precautions/Isolations: Fall Prevention, Standard Precautions Weight Bear Status Right Lower Extremity: Right Full Weight Bearing Left Lower Extremity: Left Full Weight Bearing Referral Physician: Dr. Suggs Reason for Referral: Evaluation/Treatment Medical History Reviewed History: Yes Social History Home: Single Level Current Living Status: Alone Entry Into Home: Stairs With Railing PT Steps Into Home: 2 Prior Prior Level of Function SCALE: Activities may be completed with or without assistive devices. 0-Uokxgqwdef-alzsqje completes the activity by him/herself with no assistance from a helper. 5-Set-up or Clean-up Assistance-helper sets up or cleans up; patient completes activity. [place] assists only prior to or following the activity. 4-Supervision or Touching Assistance-helper provides verbal cues and/or touching/steadying and/or contact guard assistance as patient completes activity. Assistance may be provided throughout the activity or intermittently. 3-Partial/Moderate Assistance-helper does LESS THAN HALF the effort. [place] lifts, holds or supports trunk or limbs, but provides less than half the effort. 2-Substantial/Maximal Assistance-helper does MORE THAN HALF the effort. [place] lifts or holds trunk or limbs and provides more than half the effort. 2-Dwlyuhrft-bqptii does ALL the effort. Patient does none of the effort to complete the activity. Or, the assistance of 2 or more helpers is required for the patient to complete the activity. If activity was not attempted, code reason: 7-Patient Refused. 9-Not Applicable-not attempted and the patient did not perform the activity before the current illness, exacerbation or injury. 10-Not Attempted due to Environmental Limitations-(lack of equipment, weather restraints, etc.). 88-Not Attempted due to Medical Conditions or Safety Concerns. Bed Mobility: 6 Transfers (B,C,W/C): 6 Gait: 6 Stairs: 6 Indoor Mobility (Ambulation): Independent Stairs: Independent Prior Devices Use: Walker PT Evaluation-Current Subjective Patient lying supine in bed upon PT arrival, agreeable to treatment. Patient rates pain at 5/10 in back. Objective Patient Orientation: Person, Place, Time, Situation Attachments: IV ROM/Strength ROM Lower Extremities WFLs BLEs all planes Strength Lower Extremities 3+/5 BLEs all planes. Sensory Vision: Functional Hearing: Functional Sensation Right Lower Extremit: Intact Sensation Left Lower Extremity: Intact Transfers Roll Left to Right (QC): 4 Sit to Lying (QC): 4 Lying to Sitting/Side of Bed(Q: 4 Sit to Stand (QC): 3 Chair/Aip-wu-Mzeqn Xfer(QC): 3 Gait Does the Patient Walk?: Yes Mode of Locomotion: Walk Anticipated Mode of Locomotion: Walk Walk 10 feet (QC): 4 Walk 50 ft with 2 Turns(QC): 3 Distance: 100 feet Gait Assistive Device: FWW Balance Sitting Static: Fair Sitting Dynamic: Fair Standing Static: Fair Standing Dynamic: Poor Assessment/Needs Patient tolerated treatment fair. She requires Sona to SBA for all bed mobility and transfers. Patient ambulates 100 feet with FWW, with Min A at times and verbal cues for safety, posture, balance. Patient demonstrates uncontrolled sway at times and staggers as well. Patient in bed post treatment with all needs met, nursing notified, call light in hand. Rehab Potential: Fair PT Jail Goals Jail Goals PT Jail Goals Time Frame: July 08, 2022 Roll Left & Right (QC): 6 Sit to Lying (QC): 6 Lying-Sitting on Side/Bed(QC): 6 Sit to Stand (QC): 6 Chair/Eql-co-Snbrj Xfer(QC): 6 Toilet Transfer (QC): 6 Does the Patient Walk: Yes Walk 10 feet (QC): 6 Walk 50ft with 2 Turns (QC): 6 Walk 150 ft (QC): 6 1 Step (curb) (QC): 4 4 Steps (QC): 4 PT Plan Problem List Problem List: Activity Tolerance, Functional Strength, Safety, Balance, Gait, Transfer, Bed Mobility, ROM Treatment/Plan Treatment Plan: Continue Plan of Care Treatment Plan: Bed Mobility, Education, Functional Activity Natasha, Functional Strength, Group Therapy, Gait, Safety, Therapeutic Exercise, Transfers Treatment Duration: July 08, 2022 Frequency: 6 times per week Estimated Hrs Per Day: .25 hour per day Patient and/or Family Agrees t: Yes Safety Risks/Education Patient Education: Gait Training, Transfer Techniques Teaching Recipient: Patient Teaching Methods: Demonstration, Discussion Response to Teaching: Verbalize Understanding, Return Demonstration Time Time In: 1415 Time Out: 1435 DATE: June 18, 2022 Total Billed Treatment Time: 20 Total Billed Treatment Visit, TRAM RHODES PT June 18, 2022 15:10
[2022-06-18 15:35] VITALS: BP 119/83
--- NOTE | 2022-06-18 18:40 | CONSULTATION REPORT ---
DATE OF SERVICE: 06/18/2022 The patient is admitted to ICU bed 8. PRIMARY PHYSICIAN: Geneva Sigala [facility] PHYSICIAN REQUESTING CONSULTATION Shaniqua Suggs MD IMPRESSION: 1. 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 2. She underwent induction chemotherapy with CyBorD regimen x4 cycles, followed by autologous stem cell transplantation on 05/10/2015, at [facility]. She was on maintenance therapy with Velcade from March 09, 2016 until 01/26/2022. Recent reevaluation at [facility] with evidence of progressive disease. Treatment changed to daratumumab plus dexamethasone plus Revlimid regimen. Revlimid was held because of cytopenias. 3. Recent hospitalization with hypotension and syncope. Also, has a nonproductive cough and on outpatient antibiotic therapy prior to admission. RECOMMENDATIONS: 1. Continue management of possible upper respiratory infection as you are doing with antibiotics and steroids. May consider bronchodilators if necessary. 2. With regards to her light chain disease, we will hold treatment with daratumumab, dexamethasone, and Revlimid regimen until she is stable and discharged from hospital. 3. During her recent visit at [place], the patient had abdominal fat pad aspiration for [place] red staining, which showed no evidence of amyloidosis. 4. Chronic kidney disease stage III to IV, which has been baseline for her. Monitor serially and avoid dehydration, especially with hypotension and syncope noted on admission. 5. Okay to transfer to medical floor with increased activity and discharge when stable. BRIEF HISTORY: The patient is a 71-year-old female, who was diagnosed with kappa light chain deposition disease, causing renal failure in mid 2014. She completed a bone marrow examination, which showed 4% kappa light chain restricted plasma cells with normal cytogenetics. She was started on treatment with Velcade and dexamethasone regimen in December 2014. The patient obtained a second opinion at [facility] in January 2015, and was started on CyBorD regimen for 4 cycles, followed by autologous stem cell transplantation in May 2015. Followup bone marrow examination was negative for monoclonal plasma cells and she was recommended maintenance therapy with Velcade, which started on March 09, 2016 and continued until January 26, 2022. She is having increasing nausea, vomiting and weight loss with dehydration and hypotension and has been requiring normal saline at least 2 or more times a week. Because of this, she was referred back to [facility] and completed a workup with diagnosis of progressive disease. Because of this, treatment was changed to daratumumab, Revlimid, and dexamethasone regimen. The Revlimid had to be stopped during the first cycle because of cytopenias. Recently, she had continued nausea and vomiting and presented to the ER at [place] with an episode of syncope. She was transferred to [facility] and admitted for further evaluation and management. Medical oncology consultation was requested for concurrent care. PAST MEDICAL HISTORY: Significant for kappa light chain deposition disease, diagnosed in 2014. Chronic kidney disease stage III to IV since 2014. Hypercholesterolemia; hypothyroidism; right jugular DVT in 2019, and continuing on anticoagulation; osteoporosis; anemia with iron deficiency as well as B12 deficiency and history of diverticulosis/diverticulitis. PAST SURGICAL HISTORY: Prior surgeries include a hysterectomy, cholecystectomy, sigmoid colon resection as well as a low back surgery. FAMILY HISTORY: Significant for colon cancer in her mother at 58 years of age. Father had prostate cancer at 60 years of age. Cousin on the paternal side of family had thyroid cancer. Her siblings have hypertension. Maternal grandmother had coronary artery disease. Mother and paternal grandfather had diabetes mellitus. SOCIAL HISTORY: The patient is and recently moved to [place], [place]. Previously, she lived in a farm with her . She has a son, who lives in [place]. 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 She denied any tobacco, alcohol, or recreational drug use. PHYSICAL EXAMINATION: VITAL SIGNS: Today showed an elderly female, weak appearing, awake and oriented, in no acute distress. VITAL SIGNS: Temperature was 35.8 degrees centigrade, pulse rate of 49, respirations 18, blood pressure 115/85 with oxygen saturation of 95% on room air. HEENT: Normocephalic. Extraocular muscles intact. Conjunctivae slightly pale. Oral mucosa dry. NECK: Supple with no JVD. No cervical, supraclavicular or axillary lymphadenopathy palpable. CHEST: Symmetrical. LUNGS: Fairly clear to auscultation without wheezes or rales. CARDIOVASCULAR: Regular in rate and rhythm. Borderline bradycardic. No murmurs or gallops heard. ABDOMEN: Soft, nontender with no hepatosplenomegaly or other masses palpable. EXTREMITIES: Showed no edema. SKIN: Turgor slightly poor. NEUROLOGIC: Showed no focal motor deficits. CBC done today showed WBC 2.5, hemoglobin 8.3, MCV 104, platelet count of 54,000 with neutrophil count 2.2, lymphocyte count 0.1 and monocyte count 0.2. Chemistry panel showed sodium level of 133 and CO2 of 12, BUN was 13 and creatinine 1.28 with GFR 45 mL per minute. Nonfasting glucose was 134. Liver function studies were within normal limits except albumin level of 2.8. Blood cultures obtained at the time of admission showed no growth. Chest x-ray done at the time of admission showed no acute abnormalities. Thank you for allowing me to participate in this patient's care. I will follow the patient with you and make appropriate recommendations. CC: ROMARIO Enamorado in [facility] ? requested, unable to deliver Job ID: [id number] DocumentID: [id number] Dictated Date: 06/18/2022 17:40:42 Chief Medical Director Date: 06/18/2022 18:38:00 Dictated By: GILL VIZCAINO MD
[2022-06-18 19:28] VITALS: BP 120/71
[2022-06-18] MEDS: GABAPENTIN 400 MG (NEURONTIN) CAP PO SCH (20:23)
[2022-06-18] MEDS: ZOLPIDEM 5 MG (AMBIEN) TAB PO PRN (21:36)
[2022-06-19 00:32] VITALS: BP 121/72
[2022-06-19 03:12] VITALS: BP 117/69
[2022-06-19] MEDS: NS IV 1000 ML 1,000 ML IV SCH (03:20)
[2022-06-19] MEDS: CEFEPIME INJECTION 1,000 MG in NS (IVPB) 50 ML IV SCH (05:19)
[2022-06-19] MEDS: THYROID (ARMOUR) 60 MG TABLET PO SCH (05:20)
[2022-06-19] MEDS: predniSONE 20 MG TAB PO SCH (05:20)
[2022-06-19 05:35] LABS: BASOPHILS % (AUTO) 0 % (0-10); PLATELET COUNT 66 10^3/uL (130-400)
[2022-06-19 05:37] LABS: EOSINOPHILS % (AUTO) 0 % (0-10); HEMATOCRIT 24 % (35-52); HEMOGLOBIN 8.2 g/dL (11.5-16.0); LYMPHOCYTES # (AUTO) 0.2 10^3/uL (1.0-4.0); LYMPHOCYTES % (AUTO) 7 % (12-44); MEAN CORPUSCULAR HEMOGLOBIN 37 pg (25-34); MEAN CORPUSCULAR HGB CONC 35 g/dL (32-36); MEAN CORPUSCULAR VOLUME 106 fL (80-99); MONOCYTES # (AUTO) 0.2 10^3/uL (0.0-1.0); MONOCYTES % (AUTO) 6 % (0-12); NEUTROPHILS # (AUTO) 2.7 10^3/uL (1.8-7.8); NEUTROPHILS % (AUTO) 86 % (42-75); WHITE BLOOD COUNT 3.2 10^3/uL (4.3-11.0)
[2022-06-19 05:52] LABS: ALBUMIN 2.8 GM/DL (3.2-4.5); BILIRUBIN,TOTAL 0.4 MG/DL (0.1-1.0); CALCIUM 8.2 MG/DL (8.5-10.1); CREATININE SERUM 1.29 MG/DL (0.60-1.30); POTASSIUM 4.5 MMOL/L (3.6-5.0); TOTAL PROTEIN 4.7 GM/DL (6.4-8.2)
[2022-06-19 08:00] VITALS: BP 113/64
[2022-06-19] MEDS: BENZONATATE 100 MG (TESSALON) CAPSULE PO SCH (08:15)
[2022-06-19] MEDS: morphine ER 30 MG (MS CONTIN) TAB PO SCH (08:16)
[2022-06-19] MEDS: PANTOPRAZOLE 40 MG (PROTONIX) TAB PO SCH (08:16)
[2022-06-19] MEDS: APIXABAN 5 MG (ELIQUIS) TABLET PO SCH (08:16)
[2022-06-19] MEDS: ACYCLOVIR 400 MG TABLET (ZOVIRAX) PO SCH (08:23)
--- NOTE | 2022-06-19 10:14 | Discharge Summary ---
Diagnosis/Chief Complaint Date of Admission June 15, 2022 at 18:35 Date of Discharge 06/19/22 Admission Diagnosis Admission Diagnosis See problem list Discharge Diagnosis See below Problems/Diagnosis: (1) Hypotension Assessment & Plan: - IVFs, off blood pressure meds x 3 days now, recent h/o requiring IVFs after chemo for hypotension, Broad spectrum antibiotics, normal LA, no signs of acute infection 06/17: Improving some, labs normal, continue cefepime 06/18: Blood pressure improved, Dr Thorne recommends starting a steroid burst, transfer to Med/Surg and order PT 06/19: Pressures have been stable, patient OOB w/o dizziness, plan to d/c home today, has f.u with Dr Thorne on Wednesday Qualifiers: Qualified Codes: I95.89 - Other hypotension; E86.1 - Hypovolemia Status: Acute (2) Cough Assessment & Plan: 06/17: AB and cough suppressant Qualifiers: Qualified Codes: R05.1 - Acute cough Status: Acute (3) Thrombocytopenia Assessment & Plan: - Will continue to monitor, may need hem consult if not improving tomorrow 06/17: Will continue to monitor, consider holding OAC Status: Acute (4) DOMINGO (acute kidney injury) Assessment & Plan: - improving, will continue to monitor Status: Resolved Resolution Date/Time: 06/17/22 @ 16:37 (5) Multiple myeloma Assessment & Plan: - Missed Chemo on 06/15 due to acute illness Qualifiers: Qualified Codes: C90.00 - Multiple myeloma not having achieved remission Status: Acute (6) Syncope Assessment & Plan: - No further episodes since admission Qualifiers: Qualified Codes: R55 - Syncope and collapse Status: Acute (7) Physical debility Assessment & Plan: 06/18: PT, plan to d/c tomorrow if blood pressure stablizes and she is not dizzy getting up out of bed Status: Acute Chief Complaint/HPI Chief Complaint/HPI 71 yo F with multiple myeloma that presented to ER with syncopal episode and found to be profoundly hypotensive. States that she has had a cough since last but denies any fever or chills. She lives alone and has not been around anyone who has been sick. She is currently undergoing treatments weekly and she was due for treatment yesterday but did not go because she was not feeling well. She has had to have IVFs in the past due to hypotension. States that she had not taken her blood pressure meds for the last 2 days. Denies any chest pain, abdominal pain, N/V. Discharge Summary-Simple/Stand Consultations Dr Thorne: Oncology Discharge Physical Examination Allergies: Coded Allergies: Sulfa (Sulfonamide Antibiotics) (Verified Allergy, Unknown, hives, 05/24/18) latex (Verified Allergy, Unknown, anaphylaxis, 05/24/18) midazolam (Verified Allergy, Unknown, 08/29/21) vancomycin (Verified Allergy, Unknown, hives, 05/24/18) Uncoded Allergies: "SEEDS" (Adverse Reaction, Unknown, 06/18/22) CAN NOT HAVE SEEDS D/T DIVERTICULITIS PER PT Vitals & I&Os Vital Sign - Last 12Hours Date Time Temp Pulse Resp B/P (MAP) Pulse Ox O2 Delivery O2 Flow Rate FiO2 06/19/22 09:55 97 Room Air 06/19/22 08:00 36.1 60 18 113/64 (80) 06/15/22 19:35 21 Intake and Output 06/19/22 00:00 Intake Total 950 ml Output Total 800 ml Balance 150 ml General Appearance: Alert, Oriented X3, No Acute Distress Respiratory: Clear to Auscultation, Normal Air Movement Cardiovascular: Regular Rate, No Murmurs Abdominal: Normal Bowel Sounds, Soft, No Tenderness, No Masses Extremities: No Edema, No Tenderness/Swelling Neuro: Normal Speech Psych/Mental Status: Mental Status NL, Mood NL Hospital Course See final discharge diagnosis. Discharge Condition at discharge stable Instructions to patient/family Please see electronic discharge instructions given to patient. Discharge Medications Reviewed and agree with Discharge Medication list on patient's Discharge Instruction sheet RICK OLMOS MD June 19, 2022 10:14
[2022-06-19] MEDS ORDERED: PRD20T PO (10:17)
--- NOTE | 2022-06-19 10:17 | Discharge Summary ---
Discharge [facility] Reconcile Patient Problems Problems Reviewed?: Yes Discharge Medications New, Converted or Re-Newed RX: Transmitted to Pharmacy New Medications: Prednisone (Prednisone) 20 Mg Tab 40 MG PO DAILY@0700 for 3 Days, #3 TAB Continued Medications: Acyclovir (Acyclovir) 400 Mg Tablet 400 MG PO BID, TAB ALPRAZolam (ALPRAZolam) 0.25 Mg Tablet 0.25 MG PO TID PRN for ANXIETY, TAB Apixaban (Eliquis) 5 Mg Tablet 5 MG PO BID, TAB Calcium Citrate/Vitamin D3 (Citracal-Vit D 200 mg-250 Tab) 200MG-6.25 Tablet 2 EACH PO BID, TAB Gabapentin (Gabapentin) 400 Mg Capsule 400 MG PO HS, CAP Lenalidomide (Revlimid) 5 Mg Capsule 5 MG PO 2030 X 21 DAYS, CAP TAKES DAILY X 21 DAYS THEN HOLDS FOR 7 DAYS Methylprednisolone (Methylprednisolone Dose Pack) 4 Mg Tablet 20 MG PO DAILY- DAYS 2 &3 POST TX, TAB TAKES 5 (4MG) TABS Metoclopramide HCl (Metoclopramide HCl) 5 Mg Tablet 5 MG PO QIDACHS PRN for NAUSEA/VOMITING-3RD LINE, TAB Morphine Sulfate (Morphine Sulfate IR Tablet) 15 Mg Tablet 15 MG PO DAILY PRN for PAIN-SEVERE (8-10), TAB Morphine Sulfate (Morphine Sulfate ER) 30 Mg Tablet.er 30 MG PO Q12H, TAB Ondansetron (Ondansetron Odt) 8 Mg Tab.rapdis 8 MG PO TID PRN for NAUSEA/VOMITING-1ST LINE, TAB Pantoprazole Sodium (Pantoprazole Sodium) 40 Mg Tablet.dr 40 MG PO DAILY, TAB Potassium Chloride (K-Tab ER) 10 Meq Tablet.er 20 MEQ PO DAILY, TAB TAKES 2 (10MEQ) TABS Potassium Chloride (K-Tab ER) 10 Meq Tablet.er 10 MEQ PO HS, TAB Potassium Phosphate,Monobasic (K-Phos Original) 500 Mg Tablet.alba 1000 MG PO BID, TAB TAKES 2 (500MG) TABS Promethazine HCl (Promethazine Tablet) 25 Mg Tablet 25 MG PO Q6H PRN for NAUSEA/VOMITING-2ND LINE, TAB Rosuvastatin Calcium (Rosuvastatin Calcium) 10 Mg Tablet 10 MG PO DAILY, TAB Scopolamine (Transderm-Scop) 1 Mg/3 Day Patch.td72 1 PATCH TD EVERY 72 HOURS, PATCH Sennosides (Vegetable Laxative) 8.6 Mg Tablet 8.6 MG PO BID PRN for CONSTIPATION-5TH LINE, TAB Temazepam (Temazepam) 15 Mg Capsule 15 MG PO HS PRN for SLEEP, CAP Thyroid,Pork (Carey Thyroid) 30 Mg Tablet 30 MG PO DAILY, TAB Zolpidem Tartrate (Ambien) 5 Mg Tablet 5 MG PO HS PRN for SLEEP, TAB Discontinued Medications: Amlodipine Besylate (Amlodipine Besylate) 2.5 Mg Tablet 2.5 MG PO DAILY, TAB Amoxicillin/Potassium Clav (Amox Tr-K Clv 500-125 mg Tab) 500 Mg-125 Mg Tablet 1 EA PO BID, TAB FILLED 06-12-2022 #10/5 DAY SUPPLY Doxycycline Hyclate (Doxycycline Hyclate) 100 Mg Capsule 100 MG PO BID, CAP FILLED 06-12-2022 #10/5 DAY SUPPLY Losartan Potassium (Losartan Potassium) 25 Mg Tablet 25 MG PO DAILY, TAB Patient Instructions Goal/Follow Up Appt: Keep f.u with Dr Thorne on Wednesday Activity & Diet Discharge Diet: No Restrictions Activity as Tolerated: Yes RICK OLMOS MD June 19, 2022 10:17
[2022-06-19 10:18] VITALS: BP 113/64
--- NOTE | 2022-06-19 11:17 | Physical Therapy Daily Note ---
PT Daily Note-Current Subjective Patient lying supine in bed upon PT arrival, agreeable to treatment. Patient rates pain at 5/10 in low back Pain Section J - Health Conditions 1. Rarely or not at all 2. Occasionally 3. Frequently 4. Almost constantly 8. Unable to answer Pain Effect on Sleep: 2 Pain Interference with Therapy: 2 Pain Interference w/Day-to-Day: 2 Mental Status Patient Orientation: Person Transfers SCALE: Activities may be completed with or without assistive devices. 2-Ooyiafxrwn-ucbghrg completes the activity by him/herself with no assistance from a helper. 5-Set-up or Clean-up Assistance-helper sets up or cleans up; patient completes activity. [place] assists only prior to or following the activity. 4-Supervision or Touching Assistance-helper provides verbal cues and/or touching/steadying and/or contact guard assistance as patient completes activity. Assistance may be provided throughout the activity or intermittently. 3-Partial/Moderate Assistance-helper does LESS THAN HALF the effort. [place] lifts, holds or supports trunk or limbs, but provides less than half the effort. 2-Substantial/Maximal Assistance-helper does MORE THAN HALF the effort. [place] lifts or holds trunk or limbs and provides more than half the effort. 6-Adcilckrm-yjzhwr does ALL the effort. Patient does none of the effort to compl ete the activity. Or, the assistance of 2 or more helpers is required for the patient to complete the activity. If activity was not attempted, code reason: 7-Patient Refused. 9-Not Applicable-not attempted and the patient did not perform the activity before the current illness, exacerbation or injury. 10-Not Attempted due to Environmental Limitations-(lack of equipment, weather restraints, etc.). 88-Not Attempted due to Medical Conditions or Safety Concerns. Roll Left & Right (QC): 4 Sit to Lying (QC): 4 Lying to Sitting/Side of Bed(Q: 4 Sit to Stand (QC): 4 Chair/Dfv-qk-Kmput Xfer(QC): 4 Weight Bearing Right Lower Extremity: Right Full Weight Bearing Left Lower Extremity: Left Full Weight Bearing Gait Training Does the Patient Walk?: Yes Distance: 250 feet Walk 10 feet (QC): 4 Walk 50 ft with 2 Turns(QC): 4 Walk 150 ft (QC): 4 Gait Persons Needed: 1 Gait Assistive Device: FWW Assessment Current Status: Good Progress Patient tolerated treatment fair. She requires SBA for all bed mobility and transfers. Patient ambulates 250 feet with verbal cues for safety, posture, balance. Patient demonstrates uncontrolled sway at times and staggers as well. Patient in bed post treatment with all needs met, nursing notified, call light in hand. PT [facility] Goals Design Painter Goals PT Design Painter Goals Time Frame: July 08, 2022 Roll Left & Right (QC): 6 Sit to Lying (QC): 6 Lying-Sitting on Side/Bed(QC): 6 Sit to Stand (QC): 6 Chair/Uml-ym-Iecyi Xfer(QC): 6 Toilet Transfer (QC): 6 Does the Patient Walk: Yes Walk 10 feet (QC): 6 Walk 50ft with 2 Turns (QC): 6 Walk 150 ft (QC): 6 1 Step (curb) (QC): 4 4 Steps (QC): 4 PT Plan Treatment/Plan Treatment Plan: Continue Plan of Care Treatment Plan: Bed Mobility, Education, Functional Activity Natasha, Functional Strength, Group Therapy, Gait, Safety, Therapeutic Exercise, Transfers Treatment Duration: July 08, 2022 Frequency: 6 times per week Estimated Hrs Per Day: .25 hour per day Patient and/or Family Agrees t: Yes Safety Risks/Education Patient Education: Gait Training, Transfer Techniques Teaching Recipient: Patient Teaching Methods: Demonstration, Discussion Response to Teaching: Verbalize Understanding, Return Demonstration Time Time In: 923 Time Out: 943 DATE: June 19, 2022 Total Billed Treatment Time: 20 Total Billed Treatment Visit, GT TRAM MONTOYA PT June 19, 2022 11:17
[2022-06-20] MEDS ORDERED: SCOPOLAMINE PATCH REMOVAL TP SCH (08:59)
== END 2022-06-19 11:40 | disposition home or self-care (01) | DRG 315 ==
LOC: EDUNIT# 15:03 → ER FS 15:05 → ICU 18:35 → 4TH 06-18 15:12
PROVIDERS: ADMIT Family Medicine; ATTEND Family Medicine
DX: I95.89 Other hypotension (principal); C90.00 Multiple myeloma not having achieved remission; E87.1 Hypo-osmolality and hyponatremia; N17.9 Acute kidney failure, unspecified; D61.818 Other pancytopenia; E86.0 Dehydration; I12.9 Hypertensive chronic kidney disease with stage 1 through stage 4 chronic kidney disease, or unspecified chronic kidney disease; N18.30 Chronic kidney disease, stage 3 unspecified; R53.81 Other malaise; E78.00 Pure hypercholesterolemia, unspecified; E03.9 Hypothyroidism, unspecified; D50.9 Iron deficiency anemia, unspecified; D51.9 Vitamin B12 deficiency anemia, unspecified; F41.9 Anxiety disorder, unspecified; R41.0 Disorientation, unspecified; M81.0 Age-related osteoporosis without current pathological fracture; R05.9 Cough, unspecified; Z86.718 Personal history of other venous thrombosis and embolism; Z79.01 Long term (current) use of anticoagulants; Z85.07 Personal history of malignant neoplasm of pancreas; Z79.899 Other long term (current) drug therapy; Z88.1 Allergy status to other antibiotic agents; Z88.2 Allergy status to sulfonamides; Z88.8 Allergy status to other drugs, medicaments and biological substances
CPT/HCPCS: 36415; 71045; 80053; 83605; 83690; 83735; 83880; 84100; 84132; 84484; 85007; 85025; 85027; 85379; 85610; 85730; 87040; 87081; 93005; 93041; 93306; 94640

== ENCOUNTER 2022-06-27 12:15 | Emergency (ER) | payer MEDICARE, OTHER ==
[~2022-06-27] VITALS: Ht 152 cm; Wt 49.0 kg
[~2022-06-27 12:15] MED LIST changes: +ALPR0.254 PO; +AMLO2.5T4 PO; +AMOX1TAB11 PO; +CALC-147 PO; +DOXY100C5 PO; +GABA-490 PO; +LENA5CAP PO; +LOSA25TA41 PO; +METH4TAB11 PO; +METO5TAB2 PO; +MORP-69 PO; +POTA10TA PO; +PRD20T PO; +ROSU10TA28 PO; +SCOP1PAT10 TD; +SENN8.6T62 PO; +ZOLP5TAB PO
--- NOTE | 2022-06-27 12:27 | ED General ---
General Chief Complaint: General Problems/Pain Stated Complaint: LOW BP 88/53 History of Present Illness Date Seen by Provider: June 27, 2022 Time Seen by Provider: 12:22 Initial Comments 71-year-old female presents with concerns of low blood pressure reading. She reports at home that her blood pressure was 88/53 reading. Patient has chronic illness. She was admitted from 06/15 to 06/19/2022 for acute kidney injury and low blood pressure. She presents today because she was just concerned about the reading. She did denies any symptoms. Allergies and Home Medications Allergies Coded Allergies: Sulfa (Sulfonamide Antibiotics) (Verified Allergy, Unknown, hives, 05/24/18) latex (Verified Allergy, Unknown, anaphylaxis, 05/24/18) midazolam (Verified Allergy, Unknown, 08/29/21) vancomycin (Verified Allergy, Unknown, hives, 05/24/18) Uncoded Allergies: "SEEDS" (Adverse Reaction, Unknown, 06/18/22) CAN NOT HAVE SEEDS D/T DIVERTICULITIS PER PT Patient Home Medication List Home Medication List Reviewed: Yes ALPRAZolam (ALPRAZolam) 0.25 Mg Tablet, 0.25 MG PO TID PRN for ANXIETY, (Reported) Entered as Reported by: BARTOLO HANNA on 06/16/22 1539 Acyclovir (Acyclovir) 400 Mg Tablet, 400 MG PO BID, (Reported) Entered as Reported by: MAI SEGOVIA on 05/24/18 0932 Apixaban (Eliquis) 5 Mg Tablet, 5 MG PO BID, (Reported) Entered as Reported by: ANA LUISA NOVA on 03/01/19 1220 Calcium Citrate/Vitamin D3 (Citracal-Vit D 200 mg-250 Tab) 200MG-6.25 Tablet, 2 EACH PO BID, (Reported) Entered as Reported by: BARTOLO HANNA on 06/16/22 1539 Gabapentin (Gabapentin) 400 Mg Capsule, 400 MG PO HS, (Reported) Entered as Reported by: BARTOLO HANNA on 06/16/22 1539 Lenalidomide (Revlimid) 5 Mg Capsule, 5 MG PO 2030 X 21 DAYS, (Reported) Entered as Reported by: BARTOLO HANNA on 06/16/22 1539 Methylprednisolone (Methylprednisolone Dose Pack) 4 Mg Tablet, 20 MG PO DAILY- DAYS 2 &3 POST TX, (Reported) Entered as Reported by: BARTOLO HANNA on 06/16/22 1547 Metoclopramide HCl (Metoclopramide HCl) 5 Mg Tablet, 5 MG PO QIDACHS PRN for NAUSEA/VOMITING-3RD LINE, (Reported) Entered as Reported by: BARTOLO HANNA on 06/16/22 1539 Morphine Sulfate (Morphine Sulfate IR Tablet) 15 Mg Tablet, 15 MG PO DAILY PRN for PAIN-SEVERE (8-10), (Reported) Entered as Reported by: ANA LUISA NOVA on 03/01/19 1043 Morphine Sulfate (Morphine Sulfate ER) 30 Mg Tablet.er, 30 MG PO Q12H, (Reported) Entered as Reported by: BARTOLO HANNA on 06/16/22 1539 Ondansetron (Ondansetron Odt) 8 Mg Tab.rapdis, 8 MG PO TID PRN for NAUSEA/VOMITING-1ST LINE, (Reported) Entered as Reported by: ANA LUISA NOVA on 03/01/19 1044 Pantoprazole Sodium (Pantoprazole Sodium) 40 Mg Tablet.dr, 40 MG PO DAILY, (R eported) Entered as Reported by: MAI SEGOVIA on 05/24/18 0932 Potassium Chloride (K-Tab ER) 10 Meq Tablet.er, 20 MEQ PO DAILY, (Reported) Entered as Reported by: BARTOLO HANNA on 06/16/22 1539 Potassium Chloride (K-Tab ER) 10 Meq Tablet.er, 10 MEQ PO HS, (Reported) Entered as Reported by: BARTOLO HANNA on 06/16/22 1539 Potassium Phosphate,Monobasic (K-Phos Original) 500 Mg Tablet.alba, 1,000 MG PO BID, (Reported) Entered as Reported by: MAI SEGOVIA on 05/24/18 0932 Prednisone (Prednisone) 20 Mg Tab, 40 MG PO DAILY@0700 Prescribed by: RICK OLMOS on 06/19/22 1017 Promethazine HCl (Promethazine Tablet) 25 Mg Tablet, 25 MG PO Q6H PRN for NAUSEA/VOMITING-2ND LINE, (Reported) Entered as Reported by: BARTOLO HANNA on 06/16/22 1539 Rosuvastatin Calcium (Rosuvastatin Calcium) 10 Mg Tablet, 10 MG PO DAILY, (Reported) Entered as Reported by: BARTOLO HANNA on 06/16/22 153 Scopolamine (Transderm-Scop) 1 Mg/3 Day Patch.td72, 1 PATCH TD EVERY 72 HOURS, (Reported) Entered as Reported by: BARTOLO HANNA on 06/16/22 153 Sennosides (Vegetable Laxative) 8.6 Mg Tablet, 8.6 MG PO BID PRN for CONSTIPATION-5TH LINE, (Reported) Entered as Reported by: BARTOLO HANNA on 06/16/22 153 Temazepam (Temazepam) 15 Mg Capsule, 15 MG PO HS PRN for SLEEP, (Reported) Entered as Reported by: ANA LUISA NOVA on 03/01/19 1043 Thyroid,Pork ([place] Thyroid) 30 Mg Tablet, 30 MG PO DAILY, (Reported) Entered as Reported by: ANA LUISA NOVA on 03/01/19 1212 Zolpidem Tartrate (Ambien) 5 Mg Tablet, 5 MG PO HS PRN for SLEEP, (Reported) Entered as Reported by: BARTOLO HANNA on 06/16/22 153 Review of Systems Review of Systems Constitutional: no symptoms reported, see HPI EENTM: no symptoms reported Respiratory: no symptoms reported Cardiovascular: no symptoms reported Gastrointestinal: no symptoms reported Genitourinary: no symptoms reported Musculoskeletal: no symptoms reported Skin: no symptoms reported Past Cantwhy-Cdyxfl-Dgbsjh Hx Patient Social History Tobacco Use?: No Use of E-Cig and/or Vaping dev: No Substance use?: No Alcohol Use?: No Pt feels they are or have been: No Immunizations Up To Date First/Initial COVID19 Vaccinat: pt unable to recall which one Second COVID19 Vaccination Luis: pt unable to recall which one Third COVID19 Vaccination Date: pt unable to recall which one Seasonal Allergies Seasonal Allergies: No Past Medical History Surgery/Hospitalization HX: [place]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; High Cholesterol; HTN; Anxiety Surgeries: Yes (colon resection; stem cell transplant) Appendectomy, Bowel Surgery, Gallbladder, Hysterectomy Respiratory: No Cardiac: Yes Hypertension Neurological: No Genitourinary: Yes Bladder Infection Gastrointestinal: No Musculoskeletal: No Endocrine: No HEENT: No Cancer: Yes (blood cancer; light chain proteins, MULTIPLE MYELOMA) Psychosocial: No Integumentary: No Blood Disorders: Yes Family Medical History Cancer, Stroke Physical Exam Vital Signs Vital Signs - First Documented 06/27/22 12:24 Temp 35.8 Pulse 87 Resp 16 B/P (MAP) 132/79 (96) Pulse Ox 100 O2 Delivery Room Air Capillary Refill : Height, Weight, BMI Height: 5'1.00" Weight: 127lbs. oz. 57.031837pc; 23.54 BMI Method:Stated General Appearance: No Apparent Distress Respiratory: Lungs Clear, Normal Breath Sounds Cardiovascular: Regular Rate, Rhythm, No Edema Neurologic/Psychiatric: Alert, Oriented x3, No Motor/Sensory Deficits, Normal Mood/Affect Skin: Warm/Dry, Pallor Lymphatic: No Adenopathy Progress/Results/Core Measures Suspected Sepsis SIRS Temperature: Pulse: Respiratory Rate: Laboratory Tests 06/27/22 12:50: White Blood Count 1.5L Blood Pressure / Mean: Laboratory Tests 06/27/22 12:50: Creatinine 1.32H, Platelet Count 89L, Total Bilirubin 0.6 Results/Orders Lab Results Laboratory Tests Test 06/27/22 12:50 Range/Units White Blood Count 1.5 L 4.3-11.0 10^3/uL Red Blood Count 2.46 L 3.80-5.11 10^6/uL Hemoglobin 8.9 L 11.5-16.0 g/dL Hematocrit 26 L 35-52 % Mean Corpuscular Volume 106 H 80-99 fL Mean Corpuscular Hemoglobin 36 H 25-34 pg Mean Corpuscular Hemoglobin Concent 34 32-36 g/dL Red Cell Distribution Width 13.1 10.0-14.5 % Platelet Count 89 L 130-400 10^3/uL Mean Platelet Volume 10.2 9.0-12.2 fL Sodium Level 134 L 135-145 MMOL/L Potassium Level 3.9 3.6-5.0 MMOL/L Chloride Level 100 98-107 MMOL/L Carbon Dioxide Level 24 21-32 MMOL/L Anion Gap 10 5-14 MMOL/L Blood Urea Nitrogen 13 7-18 MG/DL Creatinine 1.32 H 0.60-1.30 MG/DL Estimat Glomerular Filtration Rate 44 BUN/Creatinine Ratio 10 Glucose Level 156 H 70-105 MG/DL Calcium Level 8.9 8.5-10.1 MG/DL Corrected Calcium 9.6 8.5-10.1 MG/DL Total Bilirubin 0.6 0.1-1.0 MG/DL Aspartate Amino Transf (AST/SGOT) 12 5-34 U/L Alanine Aminotransferase (ALT/SGPT) 14 0-55 U/L Alkaline Phosphatase 54 40-136 U/L Total Protein 5.0 L 6.4-8.2 GM/DL Albumin 3.1 L 3.2-4.5 GM/DL My Orders Orders - ANA FERNANDEZ DO Cbc No Diff (06/27/22 12:27) Comprehensive Metabolic Panel (06/27/22 12:27) Heparin (Central Iv Flush) (Heparin (Yamil (06/27/22 12:38) Vital Signs/I&O 06/27/22 12:24 Temp 35.8 Pulse 87 Resp 16 B/P (MAP) 132/79 (96) Pulse Ox 100 O2 Delivery Room Air Capillary Refill : Progress Note : Progress Note Patient's diagnostic studies were ordered reviewed and interpreted by me. Patient labs are at her baseline outside of slight decrease in her neutrophil count. I did discuss with oncology on-call and they feel that since she is not having fever or any symptoms at this time there is nothing we need to do emergently. We will have her call her oncologist Dr. Rai next week to determine if she needs to do any further outpatient evaluation. Patient blood pressure remained stable throughout the stay with blood pressures in the 110s and above up to the 130s. Patient has no systemic complaints but was only here because of concern reading. Patient's recent hospital records were reviewed by me. Patient is at increased risk of morbidity and mortality due to her social determinants of health. She was stable upon discharge and should follow-up with Dr. Michael next week and return the ER as needed Departure Impression Primary Impression: Multiple myeloma Qualified Codes: C90.00 - Multiple myeloma not having achieved remission Additional Impression: Neutropenia Qualified Codes: D70.9 - Neutropenia, unspecified Disposition: 01 HOME, SELF-CARE Condition: Stable Departure-Patient Inst. Referrals: ANA LUISA BARRAGAN APRN (PCP) Primary Care Physician [facility] (Family) Primary Care Physician Patient Instructions: Neutropenia (DC), Multiple Myeloma (DC) Add. Discharge Instructions: Please follow-up with Dr. Michael next week. All discharge instructions reviewed with patient and/or family. Voiced understanding. ANA FERNANDEZ DO June 27, 2022 12:27
[2022-06-27] MEDS ORDERED: HEParin (CENTRAL IV FLUSH) 500 UNIT/5 ML SYR ONE (12:38)
[2022-06-27 12:51] LABS: HEMATOCRIT 26 % (35-52); HEMOGLOBIN 8.9 g/dL (11.5-16.0); MEAN CORPUSCULAR HEMOGLOBIN 36 pg (25-34); MEAN CORPUSCULAR HGB CONC 34 g/dL (32-36); MEAN CORPUSCULAR VOLUME 106 fL (80-99); MEAN PLATELET VOLUME 10.2 fL (9.0-12.2); PLATELET COUNT 89 10^3/uL (130-400); WHITE BLOOD COUNT 1.5 10^3/uL (4.3-11.0)
[2022-06-27 13:12] LABS: ALBUMIN 3.1 GM/DL (3.2-4.5); BILIRUBIN,TOTAL 0.6 MG/DL (0.1-1.0); CALCIUM 8.9 MG/DL (8.5-10.1); CREATININE SERUM 1.32 MG/DL (0.60-1.30); POTASSIUM 3.9 MMOL/L (3.6-5.0)
[2022-06-27 13:31] VITALS: BP 100/70
== END 2022-06-27 13:36 | disposition home or self-care (01) ==
LOC: EDUNIT# 12:15 → ER FS 12:16
DX: C90.00 Multiple myeloma not having achieved remission (principal); D70.9 Neutropenia, unspecified; Z91.040 Latex allergy status
CPT/HCPCS: 36415; 80053; 85027; 99281

== ENCOUNTER → 2022-08-06 | Outpatient (CLI) | payer MEDICARE, OTHER ==
[~2022-08-06] MED LIST changes: -LOSA100T57 PO; +LOSA100T58 PO
--- NOTE | 2022-08-06 13:28 | Diagnostic Imaging Report ---
CLINICAL INDICATION: Patient with abnormal weight loss. ICD 10 codes R63.4 and R11.2. Comparison: None. Procedure: Solid Gastric emptying study After oral ingestion of 1.02 millicuries of technetium 99M sulfur colloid, mixed with scrambled egg, sequential imaging of the abdomen is performed. Computer analysis is performed and gastric emptying curves are calculated. Findings: There is gastric emptying demonstrated with sequential imaging. The residual retained gastric activity: 1 hour: 69% (less than 30% equals rapid and greater than 90% equals delayed) 2 hours: 48% (greater than 60% represents abnormally delayed) 3 hours: 29% (greater than 30% represents abnormally delayed) 4 hours: 20% (greater than 10% represents abnormally delayed) Impression: There is abnormal delayed gastric emptying at the 4 hour time point. Otherwise unremarkable gastric emptying study. Dictated by: Dictated on workstation # [id number]
== END ==
LOC: CARD 09:00
PROVIDERS: ATTEND Internal Medicine Gastroenterology
DX: R63.4 Abnormal weight loss (principal); R11.2 Nausea with vomiting, unspecified
CPT/HCPCS: 78264; A9541

== ENCOUNTER 2022-11-13 11:48 | Emergency (ER) | payer MEDICARE, OTHER ==
[~2022-11-13] VITALS: Ht 154 cm; Wt 45.3 kg
[~2022-11-13 11:48] MED LIST changes: -GABA-490 PO; +GABA-491 PO; +POTA-185 PO; -POTA10CA44 PO; +POTA10CA84 PO; -POTA10TA PO
[2022-11-13 11:55] VITALS: BP 151/84
[2022-11-13] MEDS ORDERED: NS IV 1000 ML 1,000 ML IV SCH (12:15)
[2022-11-13] MEDS ORDERED: ONDANSETRON INJECTION 4 MG/2 ML (SDV) IVP ONE (12:15)
[2022-11-13 12:22] LABS: BASOPHILS % (AUTO) 0 % (0-10); EOSINOPHILS # (AUTO) 0.1 10^3/uL (0.0-0.3); EOSINOPHILS % (AUTO) 1 % (0-10); HEMATOCRIT 38 % (35-52); HEMOGLOBIN 13.2 g/dL (11.5-16.0); LYMPHOCYTES # (AUTO) 1.2 10^3/uL (1.0-4.0); LYMPHOCYTES % (AUTO) 21 % (12-44); MEAN CORPUSCULAR HEMOGLOBIN 37 pg (25-34); MEAN CORPUSCULAR HGB CONC 35 g/dL (32-36); MEAN CORPUSCULAR VOLUME 104 fL (80-99); MONOCYTES # (AUTO) 0.9 10^3/uL (0.0-1.0); MONOCYTES % (AUTO) 16 % (0-12); NEUTROPHILS # (AUTO) 3.5 10^3/uL (1.8-7.8); NEUTROPHILS % (AUTO) 62 % (42-75); PLATELET COUNT 104 10^3/uL (130-400); WHITE BLOOD COUNT 5.6 10^3/uL (4.3-11.0)
[2022-11-13] MEDS ORDERED: morphine INJ 10 MG/ML 1ML (SYR OR VIAL) IVP STA (12:39)
[2022-11-13] MEDS ORDERED: PROMETHAZINE INJ 25 MG/ML VIAL IVP ONE (12:45)
[2022-11-13] MEDS ORDERED: PANTOPRAZOLE INJECTION 40 MG VIAL IV ONE (12:45)
[2022-11-13 12:49] LABS: POTASSIUM 2.9 MMOL/L (3.6-5.0)
[2022-11-13 12:50] LABS: ALBUMIN 3.8 GM/DL (3.2-4.5); BILIRUBIN,TOTAL 1.3 MG/DL (0.1-1.0); CALCIUM 9.4 MG/DL (8.5-10.1); CREATININE SERUM 1.32 MG/DL (0.60-1.30)
--- NOTE | 2022-11-13 12:54 | ED GI ---
General Chief Complaint: Abdominal/GI Problems Stated Complaint: VOMITING; DIARRHEA Nursing Triage Note: Pt presents to ER with complaints of vomiting/diarrhea since Wednesday. Pt reports having chemo on Wednesday. Pt reports that she needs meds and fluids Source of Information: Patient, RN Notes Reviewed Exam Limitations: No Limitations History of Present Illness Date Seen by Provider: Nov 13, 2022 Time Seen by Provider: 12:07 Initial Comments 72-year-old female patient with history of multiple myeloma on chemotherapy with the last chemotherapy 5 days ago presented POV with her sister with complaining of frequent episodes of nausea and vomiting and diarrhea. Patient states that she had about 10 episodes of nonbloody vomiting and 10 episodes of nonbloody diarrhea every day and was not able to take her 30 mg daily home morphine and her other medication. Patient complaining of generalized weakness and dizziness. Patient complaining of cramping abdominal pain and rated her pain 6/10. Patient stated she had decrease of urine output. Patient denies fever and chills, chest pain, shortness of breath, cough and congestion. Patient has had episode of nausea and vomiting and diarrhea related to her chemotherapy and was seen in this emergency room several times for the same problem. Patient called her oncologist, Dr. Rai today and advised to come to emergency room for evaluation and treatment and possible transfer to [facility], [place]. Timing/Duration: 2-3 Days Severity/Quality: Severe Radiation: No Radiation Associated Symptoms: Fatigue, Nausea/Vomiting Allergies and Home Medications Allergies Coded Allergies: Sulfa (Sulfonamide Antibiotics) (Verified Allergy, Unknown, hives, ) latex (Verified Allergy, Unknown, anaphylaxis, 05/24/18) midazolam (Verified Allergy, Unknown, 08/29/21) vancomycin (Verified Allergy, Unknown, hives, 05/24/18) Uncoded Allergies: "SEEDS" (Adverse Reaction, Unknown, 06/18/22) CAN NOT HAVE SEEDS D/T DIVERTICULITIS PER PT Patient Home Medication List Home Medication List Reviewed: Yes ALPRAZolam (ALPRAZolam) 0.25 Mg Tablet, 0.25 MG PO TID PRN for ANXIETY, (Reported) Entered as Reported by: BARTOLO HANNA on 06/16/22 2889 Acyclovir (Acyclovir) 400 Mg Tablet, 400 MG PO BID, (Reported) Entered as Reported by: MAI SEGOVIA on 05/24/18 0932 Apixaban (Eliquis) 5 Mg Tablet, 5 MG PO BID, (Reported) Entered as Reported by: ANA LUISA NOVA on 03/01/19 1220 Calcium Citrate/Vitamin D3 (Citracal-Vit D 200 mg-250 Tab) 200MG-6.25 Tablet, 2 EACH PO BID, (Reported) Entered as Reported by: BARTOLO HANNA on 06/16/22 1539 Cephalexin (Cephalexin) 500 Mg Tablet, 500 MG PO q 8 hours Prescribed by: Alejandra reagan on 11/13/22 1352 Gabapentin (Gabapentin) 400 Mg Capsule, 400 MG PO HS, (Reported) Entered as Reported by: BARTOLO HANNA on 06/16/22 1539 Lenalidomide (Revlimid) 5 Mg Capsule, 5 MG PO 2030 X 21 DAYS, (Reported) Entered as Reported by: BARTOLO HANNA on 06/16/22 1539 Methylprednisolone (Methylprednisolone Dose Pack) 4 Mg Tablet, 20 MG PO DAILY- DAYS 2 &3 POST TX, (Reported) Entered as Reported by: BARTOLO HANNA on 06/16/22 1547 Metoclopramide HCl (Metoclopramide HCl) 5 Mg Tablet, 5 MG PO QIDACHS PRN for NAUSEA/VOMITING-3RD LINE, (Reported) Entered as Reported by: BARTOLO HANNA on 06/16/22 1539 Morphine Sulfate (Morphine Sulfate IR Tablet) 15 Mg Tablet, 15 MG PO DAILY PRN for PAIN-SEVERE (8-10), (Reported) Entered as Reported by: ANA LUISA NOVA on 03/01/19 1043 Morphine Sulfate (Morphine Sulfate ER) 30 Mg Tablet.er, 30 MG PO Q12H, (Reported) Entered as Reported by: BARTOLO HANNA on 06/16/22 1539 Ondansetron (Ondansetron Odt) 8 Mg Tab.rapdis, 8 MG PO TID PRN for NAUSEA/VOMITING-1ST LINE, (Reported) Entered as Reported by: ANA LUISA NOVA on 03/01/19 1044 Pantoprazole Sodium (Pantoprazole Sodium) 40 Mg Tablet.dr, 40 MG PO DAILY, (Reported) Entered as Reported by: MAI SEGOIVA on 05/24/18 0932 Potassium Chloride (K-Tab ER) 10 Meq Tablet.er, 20 MEQ PO DAILY, (Reported) Entered as Reported by: BARTOLO HANNA on 06/16/22 153 Potassium Chloride (K-Tab ER) 10 Meq Tablet.er, 10 MEQ PO HS, (Reported) Entered as Reported by: BARTOLO HANNA on 06/16/22 153 Potassium Phosphate,Monobasic (K-Phos Original) 500 Mg Tablet.alba, 1,000 MG PO BID, (Reported) Entered as Reported by: MAI SEGOVIA on 05/24/18 0932 Prednisone (Prednisone) 20 Mg Tab, 40 MG PO DAILY@0700 Prescribed by: RICK OLMOS on 06/19/22 1017 Promethazine HCl (Promethazine Tablet) 25 Mg Tablet, 25 MG PO Q6H PRN for NAUSEA/VOMITING-2ND LINE, (Reported) Entered as Reported by: BARTOLO HANNA on 06/16/22 153 Rosuvastatin Calcium (Rosuvastatin Calcium) 10 Mg Tablet, 10 MG PO DAILY, (Reported) Entered as Reported by: BARTOLO HANNA on 06/16/22 153 Scopolamine (Transderm-Scop) 1 Mg/3 Day Patch.td72, 1 PATCH TD EVERY 72 HOURS, (Reported) Entered as Reported by: BARTOLO HANNA on 06/16/22 153 Sennosides (Vegetable Laxative) 8.6 Mg Tablet, 8.6 MG PO BID PRN for C ONSTIPATION-5TH LINE, (Reported) Entered as Reported by: BARTOLO HANNA on 06/16/22 153 Temazepam (Temazepam) 15 Mg Capsule, 15 MG PO HS PRN for SLEEP, (Reported) Entered as Reported by: ANA LUISA NOVA on 03/01/19 1043 Thyroid,Pork (Irons Thyroid) 30 Mg Tablet, 30 MG PO DAILY, (Reported) Entered as Reported by: ANA LUISA NOVA on 03/01/19 1212 Zolpidem Tartrate (Ambien) 5 Mg Tablet, 5 MG PO HS PRN for SLEEP, (Reported) Entered as Reported by: BARTOLO HANNA on 06/16/22 153 Review of Systems Review of Systems Constitutional: dizziness, weakness EENTM: No Symptoms Reported Respiratory: No Symptoms Reported Cardiovascular: No Symptoms Reported Gastrointestinal: Abdominal Pain, Diarrhea, Nausea, Vomiting Genitourinary: See HPI Musculoskeletal: see HPI Skin: no symptoms reported Psychiatric/Neurological: No Symptoms Reported Endocrine: No Symptoms Reported Hematologic/Lymphatic: See HPI All Other Systems Reviewed Negative Unless Noted: Yes Past Hvfitja-Zzsgru-Masxbn Hx Patient Social History Tobacco Use?: No Use of E-Cig and/or Vaping dev: No Substance use?: No Alcohol Use?: No Pt feels they are or have been: No Immunizations Up To Date Influenza Vaccine Up-to-Date: No; Not Current First/Initial COVID19 Vaccinat: pt unable to recall which one Second COVID19 Vaccination Luis: pt unable to recall which one Third COVID19 Vaccination Date: pt unable to recall which one Seasonal Allergies Seasonal Allergies: No Past Medical History Surgery/Hospitalization HX: [place]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; High Cholesterol; HTN; Anxiety Surgeries: Yes (colon resection; stem cell transplant) Appendectomy, Bowel Surgery, Gallbladder, Hysterectomy Respiratory: No Cardiac: Yes Hypertension Neurological: No Genitourinary: Yes Bladder Infection Gastrointestinal: No Musculoskeletal: No Endocrine: No HEENT: No Cancer: Yes (blood cancer; light chain proteins, MULTIPLE MYELOMA) Psychosocial: No Integumentary: No Blood Disorders: Yes Family Medical History Cancer, Stroke Physical Exam Vital Signs Vital Signs - First Documented 11/13/22 11:55 Temp 36.7 Pulse 89 Resp 24 B/P (MAP) 151/84 (106) Pulse Ox 100 O2 Delivery Room Air Capillary Refill : Less Than 3 Seconds Height/Weight/BMI Height: 5'1.00" Weight: 127lbs. oz. 57.275497ba; 19.00 BMI Method:Stated General Appearance: mild distress HEENT: PERRL/EOMI, normal ENT inspection, other (Dry oral mucosa) Neck: non-tender, full range of motion Respiratory: chest non-tender, lungs clear, normal breath sounds, no respiratory distress Cardiovascular: normal peripheral pulses, regular rate, rhythm, no edema, no gallop Gastrointestinal: normal bowel sounds, non tender, soft, no organomegaly, no pulsatile mass Extremities: normal range of motion, non-tender Back: normal inspection Neurologic/Psychiatric: alert, normal mood/affect, oriented x 3 Skin: normal color Lymphatic: no adenopathy Focused Exam Lactate Level 11/13/22 12:20: Lactic Acid Level 1.46 Lactic Acid Level Laboratory Tests Test 11/13/22 12:20 Lactic Acid Level 1.46 MMOL/L (0.50-2.00) Progress/Results/Core Measures Results/Orders Lab Results Laboratory Tests Test 11/13/22 12:20 11/13/22 13:27 Range/Units White Blood Count 5.6 4.3-11.0 10^3/uL Red Blood Count 3.62 L 3.80-5.11 10^6/uL Hemoglobin 13.2 11.5-16.0 g/dL Hematocrit 38 35-52 % Mean Corpuscular Volume 104 H 80-99 fL Mean Corpuscular Hemoglobin 37 H 25-34 pg Mean Corpuscular Hemoglobin Concent 35 32-36 g/dL Red Cell Distribution Width 12.5 10.0-14.5 % Platelet Count 104 L 130-400 10^3/uL Mean Platelet Volume 10.0 9.0-12.2 fL Immature Granulocyte % (Auto) 0 % Neutrophils (%) (Auto) 62 42-75 % Lymphocytes (%) (Auto) 21 12-44 % Monocytes (%) (Auto) 16 H 0-12 % Eosinophils (%) (Auto) 1 0-10 % Basophils (%) (Auto) 0 0-10 % Neutrophils # (Auto) 3.5 1.8-7.8 10^3/uL Lymphocytes # (Auto) 1.2 1.0-4.0 10^3/uL Monocytes # (Auto) 0.9 0.0-1.0 10^3/uL Eosinophils # (Auto) 0.1 0.0-0.3 10^3/uL Basophils # (Auto) 0.0 0.0-0.1 10^3/uL Immature Granulocyte # (Auto) 0.0 0.0-0.1 10^3/uL Sodium Level 141 135-145 MMOL/L Potassium Level 2.9 L 3.6-5.0 MMOL/L Chloride Level 105 98-107 MMOL/L Carbon Dioxide Level 20 L 21-32 MMOL/L Anion Gap 16 H 5-14 MMOL/L Blood Urea Nitrogen 18 7-18 MG/DL Creatinine 1.32 H 0.60-1.30 MG/DL Estimat Glomerular Filtration Rate 43 BUN/Creatinine Ratio 14 Glucose Level 106 H 70-105 MG/DL Lactic Acid Level 1.46 0.50-2.00 MMOL/L Calcium Level 9.4 8.5-10.1 MG/DL Corrected Calcium 9.6 8.5-10.1 MG/DL Magnesium Level 1.9 1.6-2.4 MG/DL Total Bilirubin 1.3 H 0.1-1.0 MG/DL Aspartate Amino Transf (AST/SGOT) 9 5-34 U/L Alanine Aminotransferase (ALT/SGPT) 8 0-55 U/L Alkaline Phosphatase 73 40-136 U/L Pro-B-Type Natriuretic Peptide 815.2 H <125.0 PG/ML Total Protein 6.0 L 6.4-8.2 GM/DL Albumin 3.8 3.2-4.5 GM/DL Lipase 20 8-78 U/L Urine Color YELLOW Urine Clarity CLEAR Urine pH 6.5 5-9 Urine Specific [place] 1.010 L 1.016-1.022 Urine Protein NEGATIVE NEGATIVE Urine Glucose (UA) NEGATIVE NEGATIVE Urine Ketones TRACE H NEGATIVE Urine Nitrite POSITIVE H NEGATIVE Urine Bilirubin NEGATIVE NEGATIVE Urine Urobilinogen 0.2 < = 1.0 MG/DL Urine Leukocyte Esterase NEGATIVE NEGATIVE Urine RBC (Auto) TRACE-I H NEGATIVE Urine RBC NONE /HPF Urine WBC 10-25 H /HPF Urine Squamous Epithelial Cells 2-5 /HPF Urine Crystals NONE /LPF Urine Bacteria LARGE H /HPF Urine Casts NONE /LPF Urine Mucus NEGATIVE /LPF Urine Culture Indicated YES My Orders Orders - ALEJANDRA REAGAN MD Comprehensive Metabolic Panel (11/13/22 12:10) Lipase (11/13/22 12:10) Ua Culture If Indicated (11/13/22 12:10) Ed Iv/Invasive Line Start (11/13/22 12:10) Cbc And Automated Diff (11/13/22 12:10) Lactic Acid Analyzer (11/13/22 12:10) Ondansetron Injection (Ondansetron Inj (11/13/22 12:15) Ns Iv 1000 Ml (Ns Iv 1000 Ml) (11/13/22 12:15) Probnp Fs (11/13/22 12:10) Magnesium (11/13/22 12:22) Promethazine Injection (Promethazine I (11/13/22 12:45) Pantoprazole Injection (Pantoprazole Inj (11/13/22 12:45) Morphine Injection (Morphine Injection (11/13/22 12:39) Potassium Chloride (Tablet) (Potassium C (11/13/22 13:15) Potassium Chloride (Tablet) (Potassium C (11/13/22 13:28) Urine Culture (11/13/22 13:27) Ceftriaxone Iv/Im (Ceftriaxone Iv/Im) (11/13/22 13:45) Heparin (Central Iv Flush) (Heparin (Yamil (11/13/22 13:58) Medications Given in ED Current Medications Medications Dose Ordered Sig/Eligio Route Start Time Stop Time Status Last Admin Dose Admin Ceftriaxone Sodium 1000 mg/ Sodium Chloride 50 ml @ 100 mls/hr ONCE ONCE IV 11/13/22 13:45 11/13/22 14:14 DC 11/13/22 13:51 100 MLS/HR Heparin Sodium (Porcine) 500 unit STK-MED ONCE .ROUTE 11/13/22 13:58 11/13/22 14:02 DC 11/13/22 14:07 500 UNIT Ondansetron HCl 4 mg ONCE ONCE IVP 11/13/22 12:15 11/13/22 12:16 DC 11/13/22 12:21 4 MG Pantoprazole 40 mg ONCE ONCE IV 11/13/22 12:45 11/13/22 12:46 DC 11/13/22 12:48 40 MG Potassium Chloride 20 meq STK-MED ONCE PO 11/13/22 13:28 11/13/22 13:32 DC 11/13/22 13:36 20 MEQ Potassium Chloride 40 meq ONCE ONCE PO 11/13/22 13:15 11/13/22 13:16 DC 11/13/22 13:16 40 MEQ Promethazine HCl 25 mg ONCE ONCE IVP 11/13/22 12:45 11/13/22 12:46 DC 11/13/22 12:49 25 MG Vital Signs/I&O 11/13/22 11/13/22 11/13/22 11/13/22 11:55 12:45 13:15 13:38 Temp 36.7 Pulse 89 60 72 79 Resp 24 16 16 16 B/P (MAP) 151/84 (106) 162/73 (102) 133/89 (104) 158/90 (112) Pulse Ox 100 100 98 100 O2 Delivery Room Air Room Air Room Air Room Air 11/13/22 11/13/22 13:55 14:08 Pulse 78 84 Resp 16 16 B/P (MAP) 143/82 (102) 153/83 (106) Pulse Ox 100 100 O2 Delivery Room Air Room Air Blood Pressure Mean: 102 Progress Progress Note : Progress Note Differential diagnosis: Chemotherapy side effect, viral gastroenteritis, dehydration, electrolyte imbalance, UTI, sepsis. Evaluation of patient in ER showed 72-year-old male patient with history of multiple myeloma on chemotherapy with complaining of episode of nausea and vomiting and diarrhea for the last 3 days like her previous episode of nausea, vomiting, diarrhea after chemotherapy. Patient treated with IV fluid and Zofran without improvement of her nausea and with reviewing the previous chart decided to give Protonix and IV Phenergan. Patient taking morphine 30 mg daily and 10 mg of morphine was given for opiate withdrawal and vomiting. CBC, CMP, lactic acid, UA, lipase, magnesium was ordered and reviewed by me and showed potassium of 2.9 and patient treated with oral potassium. Patient currently taking potassium and advised to increase potassium for 1 week. Patient tolerated oral intake and felt comfortable to go home. Patient advised to drink plenty of liquids and not taking solid food today. Patient advised to return to ER as needed and follow-up with primary care physician and oncologist in 2 to 3 days. Departure Impression Primary Impression: Chemotherapy adverse reaction Qualified Codes: T45.1X5A - Adverse effect of antineoplastic and immunosuppressive drugs, initial encounter Additional Impressions: Urinary tract infection Qualified Codes: N39.0 - Urinary tract infection, site not specified Hypokalemia Acute gastroenteritis Generalized weakness Disposition: 01 HOME, SELF-CARE Condition: Improved Departure-Patient Inst. Decision time for Depature: 14:00 Referrals: ANA LUISA BARRAGAN APRN (PCP) Primary Care Physician [facility] (Family) Primary Care Physician Patient Instructions: Chemotherapy, Dealing with Diarrhea from the Drugs You Take, Hypokalemia, Nausea and Vomiting, Adult ED, Urinary Tract Infection, Adult ED Add. Discharge Instructions: Take your home potassium 2 pills 3 times a day instead of 2 times a day for 1 week Do not eat solid food today, drink plenty of liquids Continue home nausea and pain medication Follow-up with your oncologist in 2 or 3 days Return to ER as needed All discharge instructions reviewed with patient and/or family. Voiced understanding. Scripts Cephalexin (Cephalexin) 500 Mg Tablet 500 MG PO q 8 hours, #20 TAB 0 Refills Prov: KOUSHA,ALEJANDRA MD 11/13/22 ALEJANDRA REAGAN MD Nov 13, 2022 12:54
[2022-11-13] MEDS ORDERED: POTASSIUM CHLORIDE 20 MEQ TABLET PO ONE ×2 (13:15→13:28)
[2022-11-13 13:31] LABS: BILIRUBIN,URINE NEGATIVE (NEGATIVE); CLARITY,URINE CLEAR; COLOR,URINE YELLOW; GLUCOSE, URINE (UA) NEGATIVE (NEGATIVE); KETONES,URINE TRACE (NEGATIVE); LEUKOCYTE ESTERASE ,URINE NEGATIVE (NEGATIVE); NITRITE,URINE POSITIVE (NEGATIVE); PH,URINE 6.5 (5-9); PROTEIN,URINE NEGATIVE (NEGATIVE)
[2022-11-13 13:35] LABS: BACTERIA,URINE LARGE /HPF
[2022-11-13] MEDS ORDERED: cefTRIAXone IV/IM 1,000 MG in NS (IVPB) 50 ML 50 ML IV ONE (13:45)
[2022-11-13] MEDS ORDERED: CEPH500T PO (13:52)
[2022-11-13] MEDS ORDERED: HEParin (CENTRAL IV FLUSH) 500 UNIT/5 ML SYR ONE (13:58)
== END 2022-11-13 14:15 | disposition home or self-care (01) ==
LOC: EDUNIT# 11:48 → ER FS 11:49
DX: N39.0 Urinary tract infection, site not specified (principal); T45.1X5A Adverse effect of antineoplastic and immunosuppressive drugs, initial encounter; E87.6 Hypokalemia; K52.9 Noninfective gastroenteritis and colitis, unspecified; Z90.49 Acquired absence of other specified parts of digestive tract; Z91.040 Latex allergy status
CPT/HCPCS: 36415; 80053; 81000; 83605; 83690; 83735; 83880; 85025; 87077; 87088; 87186; 99283

== ENCOUNTER 2022-12-01 10:51 | Observation (INO) | payer MEDICARE, OTHER ==
[~2022-12-01] VITALS: Ht 155 cm; Wt 52.4 kg
[~2022-12-01 10:51] MED LIST changes: +CEPH500T PO
--- NOTE | 2022-12-01 11:06 | ED General ---
General Stated Complaint: GEN WEAKNESS History of Present Illness Date Seen by Provider: Dec 01, 2022 Time Seen by Provider: 11:01 Initial Comments 72 yr F with PMH of Multiple Myeloma and other co-morbidities, is here with complaints of generalized weakness and dehydration. Patient went to the clinic earlier today and was given some IV fluid but she still felt lethargic and tired, so she came to the ER. Patient has been having diarrhea, nausea, vomiting since Wednesday night. No known trigger or known sick contacts. Patient has not had anything to eat or drink for the past 3 days. Denies known fever and chills, chest pain, shortness of breath, palpitations, abdominal pain. Patient typically goes to her oncologist office (Dr. Rai) for IV fluids every Wednesday. Allergies and Home Medications Allergies Coded Allergies: Sulfa (Sulfonamide Antibiotics) (Verified Allergy, Unknown, hives, 05/24/18) latex (Verified Allergy, Unknown, anaphylaxis, 05/24/18) midazolam (Verified Allergy, Unknown, 08/29/21) vancomycin (Verified Allergy, Unknown, hives, 05/24/18) Uncoded Allergies: "SEEDS" (Adverse Reaction, Unknown, 06/18/22) CAN NOT HAVE SEEDS D/T DIVERTICULITIS PER PT Patient Home Medication List Home Medication List Reviewed: Yes ALPRAZolam (ALPRAZolam) 0.25 Mg Tablet, 0.25 MG PO TID PRN for ANXIETY, (Reported) Entered as Reported by: BARTOLO HANNA on 06/16/22 1539 Acyclovir (Acyclovir) 400 Mg Tablet, 400 MG PO BID, (Reported) Entered as Reported by: MAI SEGOVIA on 05/24/18 0932 Apixaban (Eliquis) 5 Mg Tablet, 5 MG PO BID, (Reported) Entered as Reported by: ANA LUISA NOVA on 03/01/19 1220 Calcium Citrate/Vitamin D3 (Citracal-Vit D 200 mg-250 Tab) 200MG-6.25 Tablet, 2 EACH PO BID, (Reported) Entered as Reported by: BARTOLO HANNA on 06/16/22 1539 Cephalexin (Cephalexin) 500 Mg Tablet, 500 MG PO q 8 hours Prescribed by: Alejandra diaz on 11/13/22 1352 Gabapentin (Gabapentin) 400 Mg Capsule, 400 MG PO HS, (Reported) Entered as Reported by: BARTOLO HANNA on 06/16/22 1539 Lenalidomide (Revlimid) 5 Mg Capsule, 5 MG PO 2030 X 21 DAYS, (Reported) Entered as Reported by: BARTOLO HANNA on 06/16/22 153 Methylprednisolone (Methylprednisolone Dose Pack) 4 Mg Tablet, 20 MG PO DAILY- DAYS 2 &3 POST TX, (Reported) Entered as Reported by: BARTOLO HANNA on 06/16/22 1547 Metoclopramide HCl (Metoclopramide HCl) 5 Mg Tablet, 5 MG PO QIDACHS PRN for NAUSEA/VOMITING-3RD LINE, (Reported) Entered as Reported by: BARTOLO HANNA on 06/16/22 153 Morphine Sulfate (Morphine Sulfate IR Tablet) 15 Mg Tablet, 15 MG PO DAILY PRN for PAIN-SEVERE (8-10), (Reported) Entered as Reported by: ANA LUISA NOVA on 03/01/19 1043 Morphine Sulfate (Morphine Sulfate ER) 30 Mg Tablet.er, 30 MG PO Q12H, (Reported) Entered as Reported by: BARTOLO HANNA on 06/16/22 1539 Ondansetron (Ondansetron Odt) 8 Mg Tab.rapdis, 8 MG PO TID PRN for NAUSEA/VOMITING-1ST LINE, (Reported) Entered as Reported by: ANA LUISA NOVA on 03/01/19 1044 Pantoprazole Sodium (Pantoprazole Sodium) 40 Mg Tablet.dr, 40 MG PO DAILY, (Reported) Entered as Reported by: MAI SEGOVIA on 05/24/18 0932 Potassium Chloride (K-Tab ER) 10 Meq Tablet.er, 20 MEQ PO DAILY, (Reported) Entered as Reported by: BARTOLO HANNA on 06/16/22 1539 Potassium Chloride (K-Tab ER) 10 Meq Tablet.er, 10 MEQ PO HS, (Reported) Entered as Reported by: BARTOLO HANNA on 06/16/22 153 Potassium Phosphate,Monobasic (K-Phos Original) 500 Mg Tablet.alba, 1,000 MG PO BID, (Reported) Entered as Reported by: MAI SEGOVIA on 05/24/18 0932 Prednisone (Prednisone) 20 Mg Tab, 40 MG PO DAILY@0700 Prescribed by: RICK OLMOS on 06/19/22 1017 Promethazine HCl (Promethazine Tablet) 25 Mg Tablet, 25 MG PO Q6H PRN for NAUSEA/VOMITING-2ND LINE, (Reported) Entered as Reported by: BARTOLO HANNA on 06/16/22 153 Rosuvastatin Calcium (Rosuvastatin Calcium) 10 Mg Tablet, 10 MG PO DAILY, (Reported) Entered as Reported by: BARTOLO HANNA on 06/16/22 153 Scopolamine (Transderm-Scop) 1 Mg/3 Day Patch.td72, 1 PATCH TD EVERY 72 HOURS, (Reported) Entered as Reported by: BARTOLO HANNA on 06/16/22 153 Sennosides (Vegetable Laxative) 8.6 Mg Tablet, 8.6 MG PO BID PRN for CONSTIPATION-5TH LINE, (Reported) Entered as Reported by: BARTOLO HANNA on 06/16/22 153 Temazepam (Temazepam) 15 Mg Capsule, 15 MG PO HS PRN for SLEEP, (Reported) Entered as Reported by: ANA LUISA NOVA on 03/01/19 1043 Thyroid,Pork ([place] Thyroid) 30 Mg Tablet, 30 MG PO DAILY, (Reported) Entered as Reported by: ANA LUISA NOVA on 03/01/19 1212 Zolpidem Tartrate (Ambien) 5 Mg Tablet, 5 MG PO HS PRN for SLEEP, (Reported) Entered as Reported by: BARTOLO HANNA on 06/16/22 153 Review of Systems Review of Systems Constitutional: see HPI, malaise EENTM: no symptoms reported Respiratory: no symptoms reported Cardiovascular: no symptoms reported Gastrointestinal: abdominal pain, diarrhea, loss of appetite, nausea, vomiting Genitourinary: dysuria Skin: no symptoms reported Psychiatric/Neurological: No Symptoms Reported Past Lnanwkx-Zepejm-Fcjwtz Hx Immunizations Up To Date First/Initial COVID19 Vaccinat: pt unable to recall which one Second COVID19 Vaccination Luis: pt unable to recall which one Third COVID19 Vaccination Date: pt unable to recall which one Seasonal Allergies Seasonal Allergies: No Past Medical History Surgery/Hospitalization HX: [place]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; High Cholesterol; HTN; Anxiety Surgeries: Yes (colon resection; stem cell transplant) Appendectomy, Bowel Surgery, Gallbladder, Hysterectomy Respiratory: No Cardiac: Yes Hypertension Neurological: No Genitourinary: Yes Bladder Infection Gastrointestinal: No Musculoskeletal: No Endocrine: No HEENT: No Cancer: Yes (blood cancer; light chain proteins, MULTIPLE MYELOMA) Psychosocial: No Integumentary: No Blood Disorders: Yes Family Medical History Cancer, Stroke Physical Exam Vital Signs Vital Signs - First Documented 12/01/22 11:05 Temp 36.4 Pulse 77 Resp 17 B/P (MAP) 133/83 (100) Pulse Ox 100 O2 Delivery Room Air Capillary Refill : Height, Weight, BMI Height: 5'1.00" Weight: 127lbs. oz. 57.941962wo; 19.00 BMI Method:Stated General Appearance: Mild Distress, Thin HEENT: PERRL/EOMI, Normal ENT Inspection Neck: Full Range of Motion Respiratory: Chest Non Tender, Lungs Clear, Normal Breath Sounds, No Accessory Muscle Use Cardiovascular: Regular Rate, Rhythm, No Edema Gastrointestinal: Normal Bowel Sounds, Soft, Tenderness (Tenderness in the suprapubic area as well as the right CVA) Back: Normal Inspection, CVA Tenderness (R) Extremity: Normal Range of Motion Neurologic/Psychiatric: Alert, Oriented x3, No Motor/Sensory Deficits, Normal Mood/Affect Skin: Normal Color Focused Exam Lactate Level 12/01/22 11:44: Lactic Acid Level 1.49 Lactic Acid Level Laboratory Tests Test 12/01/22 11:44 Lactic Acid Level 1.49 MMOL/L (0.50-2.00) Progress/Results/Core Measures Suspected Sepsis SIRS Temperature: Pulse: Respiratory Rate: Laboratory Tests 12/01/22 11:44: White Blood Count 4.7 Blood Pressure / Mean: 12/01/22 11:44: Lactic Acid Level 1.49 Laboratory Tests 12/01/22 11:44: Creatinine 1.73H, Platelet Count 93L, Total Bilirubin 0.7 Results/Orders Lab Results Laboratory Tests Test 12/01/22 11:11 12/01/22 11:44 12/01/22 12:37 Range/Units Influenza Type A (RT-PCR) Not Detected Not Detecte Influenza Type B (RT-PCR) Not Detected Not Detecte SARS-CoV-2 RNA (RT-PCR) Not Detected Not Detecte White Blood Count 4.7 4.3-11.0 10^3/uL Red Blood Count 3.71 L 3.80-5.11 10^6/uL Hemoglobin 13.3 11.5-16.0 g/dL Hematocrit 38 35-52 % Mean Corpuscular Volume 103 H 80-99 fL Mean Corpuscular Hemoglobin 36 H 25-34 pg Mean Corpuscular Hemoglobin Concent 35 32-36 g/dL Red Cell Distribution Width 13.0 10.0-14.5 % Platelet Count 93 L 130-400 10^3/uL Mean Platelet Volume 10.8 9.0-12.2 fL Immature Granulocyte % (Auto) 0 % Neutrophils (%) (Auto) 78 H 42-75 % Lymphocytes (%) (Auto) 12 12-44 % Monocytes (%) (Auto) 10 0-12 % Eosinophils (%) (Auto) 0 0-10 % Basophils (%) (Auto) 0 0-10 % Neutrophils # (Auto) 3.6 1.8-7.8 10^3/uL Lymphocytes # (Auto) 0.6 L 1.0-4.0 10^3/uL Monocytes # (Auto) 0.5 0.0-1.0 10^3/uL Eosinophils # (Auto) 0.0 0.0-0.3 10^3/uL Basophils # (Auto) 0.0 0.0-0.1 10^3/uL Immature Granulocyte # (Auto) 0.0 0.0-0.1 10^3/uL Percent Immature Platelet Fraction 1.8 0.0-7.6 % Sodium Level 137 135-145 MMOL/L Potassium Level 2.9 L 3.6-5.0 MMOL/L Chloride Level 103 98-107 MMOL/L Carbon Dioxide Level 17 L 21-32 MMOL/L Anion Gap 17 H 5-14 MMOL/L Blood Urea Nitrogen 33 H 7-18 MG/DL Creatinine 1.73 H 0.60-1.30 MG/DL Estimat Glomerular Filtration Rate 31 BUN/Creatinine Ratio 19 Glucose Level 98 70-105 MG/DL Lactic Acid Level 1.49 0.50-2.00 MMOL/L Calcium Level 8.8 8.5-10.1 MG/DL Corrected Calcium 9.2 8.5-10.1 MG/DL Magnesium Level 2.0 1.6-2.4 MG/DL Total Bilirubin 0.7 0.1-1.0 MG/DL Aspartate Amino Transf (AST/SGOT) 13 5-34 U/L Alanine Aminotransferase (ALT/SGPT) 8 0-55 U/L Alkaline Phosphatase 82 40-136 U/L Troponin I < 0.30 <0.30 NG/ML Total Protein 5.8 L 6.4-8.2 GM/DL Albumin 3.5 3.2-4.5 GM/DL Urine Color YELLOW Urine Clarity CLEAR Urine pH 6.0 5-9 Urine Specific [place] 1.025 H 1.016-1.022 Urine Protein 1+ H NEGATIVE Urine Glucose (UA) NEGATIVE NEGATIVE Urine Ketones 1+ H NEGATIVE Urine Nitrite NEGATIVE NEGATIVE Urine Bilirubin 1+ H NEGATIVE Urine Urobilinogen 0.2 < = 1.0 MG/DL Urine Leukocyte Esterase NEGATIVE NEGATIVE Urine RBC (Auto) TRACE-I H NEGATIVE Urine RBC NONE /HPF Urine WBC 0-2 /HPF Urine Squamous Epithelial Cells 2-5 /HPF Urine Crystals NONE /LPF Urine Bacteria TRACE /HPF Urine Casts NONE /LPF Urine Mucus MODERATE H /LPF Urine Culture Indicated NO My Orders Orders - KAREN CONNER MD Cbc And Automated Diff (12/01/22 11:06) Comprehensive Metabolic Panel (12/01/22 11:06) Lactic Acid Analyzer (12/01/22 11:06) Magnesium (12/01/22 11:06) Ua Culture If Indicated (12/01/22 11:06) Influenza A And B By Pcr (12/01/22 11:06) Troponin I Fs (12/01/22 11:06) Covid 19 Inhouse Test (12/01/22 11:06) Chest 1 View Ap/Pa Only (12/01/22 11:06) Continuous Ekg Monitoring (12/01/22 11:07) Ekg Tracing (12/01/22 11:07) Ondansetron Injection (Ondansetron Inj (12/01/22 12:15) Ed Iv/Invasive Line Start (12/01/22 12:01) Ns Iv 1000 Ml (Ns Iv 1000 Ml) (12/01/22 12:15) Ct Abdomen/Pelvis W (12/01/22 12:02) Iohexol Injection (Omnipaque 350 Mg/Ml 1 (12/01/22 12:15) Received Contrast (Hold Metformin- Contr (12/01/22 12:15) Ns (Ivpb) 100 Ml (Sodium Chloride 0.9% 1 (10/24/23 12:15) Potassium Cl 10meq/50ml Ivpb (Kcl 10 Meq (12/01/22 12:07) Medications Given in ED Current Medications Medications Dose Ordered Sig/Eligio Route Start Time Stop Time Status Last Admin Dose Admin Iohexol 100 ml ONCE ONCE IV 12/01/22 12:15 12/01/22 12:16 DC 12/01/22 12:39 60 ML Ondansetron HCl 4 mg ONCE ONCE IVP 12/01/22 12:15 12/01/22 12:16 DC 12/01/22 12:23 4 MG Sodium Chloride 100 ml ONCE ONCE IV 12/01/22 12:15 12/01/22 12:16 DC 12/01/22 12:39 100 ML Vital Signs/I&O 12/01/22 11:05 Temp 36.4 Pulse 77 Resp 17 B/P (MAP) 133/83 (100) Pulse Ox 100 O2 Delivery Room Air Capillary Refill : Progress Note : Progress Note 1. GENERALIZED WEAKNESS WITH NAUSEA & VOMITING and p.o. intolerance: - CT ABD: Liquid stool throughout the colon, suggestive of diarrheal illness. No bowel obstruction. No free fluid or free air. No acute abnormalities in the kidneys. No hydronephrosis or solid renal mass. Diverticula in the descending colon without evidence of acute diverticulitis. Patchy opacities in the lung bases, suggestive of inflammatory/infectious process. - CXR: no acute findings - CBC: Normal WBC count, hemoglobin is 13.3 and stable - Troponin/ EKG: undetected, non-ischemic - Stool culture/ O & P: ordered, pt has not given sample yet. - NS IVF bolus - Discussed with hospitalist, and accepted for admission to observation for iv fluids. 2. HYPOKALEMIA: - s. K is 2.9 - Repleted with K 20mEq iv given in ER Diagnostic Imaging Diagonstic Imaging: Xray, CT Plain Films/CT/US/NM/MRI: chest, abdomen Comments [facility]. [place], [place] NAME: RHIANNON MORSE [facility] REC#: [id number] PT STATUS: REG ER : 1950 PHYSICIAN: KAREN CONNER MD ADMIT DATE: 12/01/22/ER FS Signed Date of Exam:12/01/22 CT ABDOMEN/PELVIS W EXAMINATION: CT abdomen and pelvis with intravenous contrast. TECHNIQUE: Multiple contiguous axial images were obtained through the abdomen and pelvis after the uneventful administration of intravenous contrast. All CT scans use one or more of the following dose optimizing techniques: Automated exposure control, MA and/or KvP adjustment based on patient size and exam type or iterative reconstruction. HISTORY: Right-sided flank pain. Abdominal pain. COMPARISON: 10/27/2018. FINDINGS: The heart is unremarkable. Patchy opacities are seen in the lung bases. The liver, spleen, pancreas, adrenal glands, and kidneys have a normal appearance. The gallbladder is surgically absent. There is no pathologically enlarged mesenteric or retroperitoneal adenopathy. The bowel loops are nondilated. Partial sigmoid colon resection changes are visualized. Scattered diverticula are seen in the descending colon. No evidence of acute diverticulitis. Liquid stool is seen throughout the colon. There is no free fluid or free air. No acute osseous abnormalities. Chronic height loss is visualized in the L4 vertebral body. There is calcified aortic and iliac atherosclerotic plaque without aneurysm. The urinary bladder is decompressed. There is no free air, loculated collection, or adenopathy in the pelvis. IMPRESSION: 1. Liquid stool throughout the colon, suggestive of diarrheal illness. No bowel obstruction. No free fluid or free air. 2. No acute abnormalities in the kidneys. No hydronephrosis or solid renal mass. 3. Diverticula in the descending colon without evidence of acute diverticulitis. 4. Patchy opacities in the lung bases, suggestive of inflammatory/infectious process. Dictated by: Dictated on workstation # [id number] Dict: 12/01/22 1252 Trans: 12/01/22 1309 [id number] Interpreted by: AMANDA KNAPP DO Electronically signed by: AMANDA KNAPP DO 12/01/22 1309 [facility] [place] [place], [place] NAME: RHIANNON MORSE Adrian [facility] REC#: [id number] PT STATUS: REG ER : 1950 PHYSICIAN: KAREN CONNER MD ADMIT DATE: 12/01/22/ER FS Signed Date of Exam:12/01/22 CHEST 1 VIEW AP/PA ONLY EXAMINATION: Chest 1 view HISTORY: generalized weakness COMPARISON: 06/16/2022 FINDINGS: The lungs are clear without edema or pneumonia. No pleural effusion or pneumothorax. Heart size is normal. Right port catheter tip terminates in the superior vena cava. IMPRESSION: 1. Clear lungs. Dictated by: Dictated on workstation # [id number] Dict: 12/01/22 1129 Trans: 12/01/22 1246 [id number] Interpreted by: TRAM PARIS MD Electronically signed by: TRAM PARIS MD 12/01/22 1246 Departure Communication (Admissions) Time/Spoke to Admitting Phy: 13:30 Discussed with hospitalist, Dr. Olmos and accepted for observation unit admission Impression Primary Impression: Generalized weakness Additional Impressions: Dehydration DOMINGO (acute kidney injury) Food intolerance Disposition: 30 STILL A PATIENT Condition: Stable Admissions Decision to Admit Reason: Admit from ER (General) Decision to Admit/Date: Dec 01, 2022 Time/Decision to Admit Time: 13:00 Transfer Method of Transfer: Private Vehicle Departure-Patient Inst. Referrals: ANA LUISA BARRAGAN APRN (PCP) Primary Care Physician [facility] (Family) Primary Care Physician KAREN CONNER MD Dec 01, 2022 11:06
--- NOTE | 2022-12-01 11:30 | Diagnostic Imaging Report ---
EXAMINATION: Chest 1 view HISTORY: generalized weakness COMPARISON: 06/16/2022 FINDINGS: The lungs are clear without edema or pneumonia. No pleural effusion or pneumothorax. Heart size is normal. Right port catheter tip terminates in the superior vena cava. IMPRESSION: 1. Clear lungs. Dictated by: Dictated on workstation # [id number]
[2022-12-01 11:49] LABS: BASOPHILS % (AUTO) 0 % (0-10); EOSINOPHILS % (AUTO) 0 % (0-10); HEMATOCRIT 38 % (35-52); HEMOGLOBIN 13.3 g/dL (11.5-16.0); LYMPHOCYTES # (AUTO) 0.6 10^3/uL (1.0-4.0); LYMPHOCYTES % (AUTO) 12 % (12-44); MEAN CORPUSCULAR HEMOGLOBIN 36 pg (25-34); MEAN CORPUSCULAR HGB CONC 35 g/dL (32-36); MEAN CORPUSCULAR VOLUME 103 fL (80-99); MEAN PLATELET VOLUME 10.8 fL (9.0-12.2); MONOCYTES # (AUTO) 0.5 10^3/uL (0.0-1.0); MONOCYTES % (AUTO) 10 % (0-12); NEUTROPHILS # (AUTO) 3.6 10^3/uL (1.8-7.8); NEUTROPHILS % (AUTO) 78 % (42-75); PLATELET COUNT 93 10^3/uL (130-400); WHITE BLOOD COUNT 4.7 10^3/uL (4.3-11.0)
[2022-12-01 12:02] LABS: CHLORIDE 103 MMOL/L (98-107); POTASSIUM 2.9 MMOL/L (3.6-5.0); SODIUM 137 MMOL/L (135-145)
[2022-12-01] MEDS ORDERED: POTASSIUM CL 10MEQ/50ML IVPB 50 ML IV STA (12:07)
[2022-12-01 12:10] LABS: ALANINE AMINOTRANSFERASE 8 U/L (0-55); ALBUMIN 3.5 GM/DL (3.2-4.5); ALKALINE PHOSPHATASE 82 U/L (40-136); BILIRUBIN,TOTAL 0.7 MG/DL (0.1-1.0); BUN/CREATININE RATIO 19; CALCIUM 8.8 MG/DL (8.5-10.1); CARBON DIOXIDE 17 MMOL/L (21-32); CREATININE SERUM 1.73 MG/DL (0.60-1.30); GFR ESTIMATED 31; GLUCOSE 98 MG/DL (70-105); TOTAL PROTEIN 5.8 GM/DL (6.4-8.2)
[2022-12-01] MEDS ORDERED: ONDANSETRON INJECTION 4 MG/2 ML (SDV) IVP ONE (12:15)
[2022-12-01] MEDS ORDERED: HOLD METFORMIN - RECEIVED CONTRAST 20 ML VIAL IV SCH (12:15)
[2022-12-01] MEDS ORDERED: IOHEXOL 350 MG/ML 100 ML (OMNIPAQUE 350) VIAL IV ONE (12:15)
[2022-12-01] MEDS ORDERED: NS IV 1000 ML 1,000 ML IV SCH (12:15)
[2022-12-01] MEDS ORDERED: NS 100 ML (IVPB) BAG IV ONE (12:15)
[2022-12-01 12:42] LABS: CLARITY,URINE CLEAR; COLOR,URINE YELLOW; GLUCOSE, URINE (UA) NEGATIVE (NEGATIVE); KETONES,URINE 1+ (NEGATIVE); LEUKOCYTE ESTERASE ,URINE NEGATIVE (NEGATIVE); NITRITE,URINE NEGATIVE (NEGATIVE); PROTEIN,URINE 1+ (NEGATIVE)
[2022-12-01 12:52] LABS: BACTERIA,URINE TRACE /HPF; BILIRUBIN,URINE 1+ (NEGATIVE); WBC,URINE 0-2 /HPF
--- NOTE | 2022-12-01 13:06 | Diagnostic Imaging Report ---
EXAMINATION: CT abdomen and pelvis with intravenous contrast. TECHNIQUE: Multiple contiguous axial images were obtained through the abdomen and pelvis after the uneventful administration of intravenous contrast. All CT scans use one or more of the following dose optimizing techniques: Automated exposure control, MA and/or KvP adjustment based on patient size and exam type or iterative reconstruction. HISTORY: Right-sided flank pain. Abdominal pain. COMPARISON: 10/27/2018. FINDINGS: The heart is unremarkable. Patchy opacities are seen in the lung bases. The liver, spleen, pancreas, adrenal glands, and kidneys have a normal appearance. The gallbladder is surgically absent. There is no pathologically enlarged mesenteric or retroperitoneal adenopathy. The bowel loops are nondilated. Partial sigmoid colon resection changes are visualized. Scattered diverticula are seen in the descending colon. No evidence of acute diverticulitis. Liquid stool is seen throughout the colon. There is no free fluid or free air. No acute osseous abnormalities. Chronic height loss is visualized in the L4 vertebral body. There is calcified aortic and iliac atherosclerotic plaque without aneurysm. The urinary bladder is decompressed. There is no free air, loculated collection, or adenopathy in the pelvis. IMPRESSION: 1. Liquid stool throughout the colon, suggestive of diarrheal illness. No bowel obstruction. No free fluid or free air. 2. No acute abnormalities in the kidneys. No hydronephrosis or solid renal mass. 3. Diverticula in the descending colon without evidence of acute diverticulitis. 4. Patchy opacities in the lung bases, suggestive of inflammatory/infectious process. Dictated by: Dictated on workstation # [id number]
[2022-12-01 16:46] VITALS: BP 133/83
[2022-12-01] MEDS: NS IV 1000 ML 1,000 ML IV SCH ×2 (16:50→20:08)
[2022-12-01] MEDS: POTASSIUM CL 10MEQ/50ML IVPB 50 ML IV SCH ×6 (16:50→23:18)
[2022-12-01] MEDS ORDERED: MELATONIN 3 MG TABLET PO PRN (17:00)
[2022-12-01] MEDS ORDERED: ACETAMINOPHEN 325 MG TABLET PO PRN (17:00)
[2022-12-01 17:08] VITALS: BP 156/86
[2022-12-01] MEDS ORDERED: PROMETHAZINE INJ 25 MG/ML VIAL IVP PRN (17:30)
[2022-12-01] MEDS ORDERED: POTASSIUM CL 10MEQ/50ML IVPB 50 ML IV ONE (19:00)
[2022-12-01 19:55] VITALS: BP 158/78
[2022-12-01] MEDS: ONDANSETRON INJECTION 4 MG/2 ML (SDV) IVP PRN (20:08)
[2022-12-01 23:20] VITALS: BP 115/72
[2022-12-02] MEDS: NS IV 1000 ML 1,000 ML IV SCH ×4 (01:09→17:35)
[2022-12-02 01:29] LABS: POTASSIUM 4.7 MMOL/L (3.6-5.0)
[2022-12-02 01:30] LABS: CALCIUM 7.5 MG/DL (8.5-10.1)
[2022-12-02 01:35] LABS: CREATININE SERUM 1.27 MG/DL (0.60-1.30)
[2022-12-02] MEDS: ONDANSETRON INJECTION 4 MG/2 ML (SDV) IVP PRN (02:04)
[2022-12-02 04:50] VITALS: BP 113/71
[2022-12-02 05:05] LABS: BASOPHILS % (AUTO) 0 % (0-10)
[2022-12-02 05:07] LABS: EOSINOPHILS % (AUTO) 1 % (0-10); HEMATOCRIT 28 % (35-52); HEMOGLOBIN 9.7 g/dL (11.5-16.0); LYMPHOCYTES # (AUTO) 0.7 10^3/uL (1.0-4.0); LYMPHOCYTES % (AUTO) 18 % (12-44); MEAN CORPUSCULAR HEMOGLOBIN 36 pg (25-34); MEAN CORPUSCULAR HGB CONC 35 g/dL (32-36); MEAN CORPUSCULAR VOLUME 105 fL (80-99); MEAN PLATELET VOLUME 10.2 fL (9.0-12.2); MONOCYTES # (AUTO) 0.4 10^3/uL (0.0-1.0); MONOCYTES % (AUTO) 10 % (0-12); NEUTROPHILS # (AUTO) 2.7 10^3/uL (1.8-7.8); NEUTROPHILS % (AUTO) 72 % (42-75); PLATELET COUNT 60 10^3/uL (130-400); WHITE BLOOD COUNT 3.8 10^3/uL (4.3-11.0)
[2022-12-02 05:32] LABS: ALBUMIN 2.8 GM/DL (3.2-4.5); BILIRUBIN,TOTAL 0.4 MG/DL (0.1-1.0); CALCIUM 7.5 MG/DL (8.5-10.1); CREATININE SERUM 1.23 MG/DL (0.60-1.30); MAGNESIUM 1.6 MG/DL (1.6-2.4); POTASSIUM 4.2 MMOL/L (3.6-5.0); TOTAL PROTEIN 4.2 GM/DL (6.4-8.2)
[2022-12-02] MEDS: POTASSIUM CL 10MEQ/50ML IVPB 50 ML IV SCH (05:36)
[2022-12-02] MEDS: POTASSIUM CHLORIDE 20 MEQ TABLET PO SCH (05:37)
[2022-12-02] MEDS: POTASSIUM BICARB 20 MEQ effervescent TABLET PO SCH (05:37)
[2022-12-02] MEDS: MAGNESIUM 1 GM/100 ML IVPB 100 ML IV SCH ×5 (05:37→10:52)
--- NOTE | 2022-12-02 06:21 | History & Physical ---
NAOMY CARDONA MD, RESIDENT 12/02/22 0621: HPI History of Present Illness: Patient is a 72-year-old female with a past medical history of multiple myeloma who presented yesterday with generalized weakness secondary to persistent nausea, vomiting and diarrhea. She states she has been having multiple episodes of watery diarrhea daily as well as persistent nausea and vomiting. She is also noted that she has been having a cough since Wednesday. She states that she is on chemotherapy and her last treatment was 2 weeks ago, is currently on a 4-week treatment cycle. She notes that her nausea and vomiting was worse than her baseline. She denies any sick contacts and notes that she lives alone at home. Source: patient Exam Limitations: no limitations Date seen by provider: Dec 02, 2022 Time Seen by Provider: 07:30 Attending Physician Geneva Sigala Aprn PCP Admitting Physician: Rick Olmos MD Attending Physician: Rick Olmos MD Consult Date of Admission Dec 01, 2022 at 15:55 Home Medications Home Medications Reviewed patient Home Medication Reconciliation performed by pharmacy medication reconciliations refrigerating technician and/or nursing. Patients Allergies have been reviewed. Allergies Coded Allergies: Sulfa (Sulfonamide Antibiotics) (Verified Allergy, Unknown, hives, 05/24/18) latex (Verified Allergy, Unknown, anaphylaxis, 05/24/18) midazolam (Verified Allergy, Unknown, 08/29/21) vancomycin (Verified Allergy, Unknown, hives, 05/24/18) Uncoded Allergies: "SEEDS" (Adverse Reaction, Unknown, 06/18/22) CAN NOT HAVE SEEDS D/T DIVERTICULITIS PER PT [id number] [id number] Patient Social History Smoking Status: Never a Smoker 2nd Hand Smoke Exposure: No Recent Hopitalizations: No Alcohol Use?: No Immunizations Up To Date Influenza Vaccine Up-to-Date: No; Not Current First/Initial COVID19 Vaccinat: pt unable to recall which one Second COVID19 Vaccination Luis: pt unable to recall which one Third COVID19 Vaccination Date: pt unable to recall which one Past Medical History Chronic Pain Multiple Myeloma Hypothyroidism GERD Family Medical History Significant Family History: Cancer, Stroke Review of Systems ([facility]) Constitutional: chills, dizziness, fever EENTM: nose congestion Respiratory: cough; No short of breath Cardiovascular: No chest pain, No edema, No palpitations Gastrointestinal: No abdominal pain; diarrhea, nausea, vomiting Genitourinary: No dysuria Reviewed Test Results Reviewed Test Results Lab Laboratory Tests 12/01/22 11:11: Influenza Type A (RT-PCR) Not Detected, Influenza Type B (RT-PCR) Not Detected, SARS-CoV-2 RNA (RT-PCR) Not Detected 12/01/22 11:44: White Blood Count 4.7, Red Blood Count 3.71L, Hemoglobin 13.3, Hematocrit 38, Mean Corpuscular Volume 103H, Mean Corpuscular Hemoglobin 36H, Mean Corpuscular Hemoglobin Concent 35, Red Cell Distribution Width 13.0, Platelet Count 93L, Mean Platelet Volume 10.8, Immature Granulocyte % (Auto) 0, Neutrophils (%) (Auto) 78H, Lymphocytes (%) (Auto) 12, Monocytes (%) (Auto) 10, Eosinophils (%) (Auto) 0, Basophils (%) (Auto) 0, Neutrophils # (Auto) 3.6, Lymphocytes # (Auto) 0.6L, Monocytes # (Auto) 0.5, Eosinophils # (Auto) 0.0, Basophils # (Auto) 0.0, Immature Granulocyte # (Auto) 0.0, Percent Immature Platelet Fraction 1.8, Sodium Level 137, Potassium Level 2.9L, Chloride Level 103, Carbon Dioxide Level 17L, Anion Gap 17H, Blood Urea Nitrogen 33H, Creatinine 1.73H, Estimat Glomerular Filtration Rate 31, BUN/Creatinine Ratio 19, Glucose Level 98, Lactic Acid Level 1.49, Calcium Level 8.8, Corrected Calcium 9.2, Magnesium Level 2.0, Total Bilirubin 0.7, Aspartate Amino Transf (AST/SGOT) 13, Alanine Aminotransferase (ALT/SGPT) 8, Alkaline Phosphatase 82, Troponin I < 0.30, Total Protein 5.8L, Albumin 3.5 12/01/22 12:37: Urine Color YELLOW, Urine Clarity CLEAR, Urine pH 6.0, Urine Specific [place] 1.025H, Urine Protein 1+H, Urine Glucose (UA) NEGATIVE, Urine Ketones 1+H, Urine Nitrite NEGATIVE, Urine Bilirubin 1+H, Urine Urobilinogen 0.2, Urine Leukocyte Esterase NEGATIVE, Urine RBC (Auto) TRACE-IH, Urine RBC NONE, Urine WBC 0-2, Ur ine Squamous Epithelial Cells 2-5, Urine Crystals NONE, Urine Bacteria TRACE, Urine Casts NONE, Urine Mucus MODERATEH, Urine Culture Indicated NO 12/02/22 01:10: Sodium Level 137, Potassium Level 4.7, Chloride Level 116#H, Carbon Dioxide Level 15L, Anion Gap 6, Blood Urea Nitrogen 22H, Creatinine 1.27, Estimat Glomerular Filtration Rate 45, BUN/Creatinine Ratio 17, Glucose Level 68L, Calcium Level 7.5L 12/02/22 04:55: White Blood Count 3.8L, Red Blood Count 2.67L, Hemoglobin 9.7#L, Hematocrit 28L, Mean Corpuscular Volume 105H, Mean Corpuscular Hemoglobin 36H, Mean Corpuscular Hemoglobin Concent 35, Red Cell Distribution Width 13.1, Platelet Count 60L, Mean Platelet Volume 10.2, Immature Granulocyte % (Auto) 0, Neutrophils (%) (Auto) 72, Lymphocytes (%) (Auto) 18, Monocytes (%) (Auto) 10, Eosinophils (%) (Auto) 1, Basophils (%) (Auto) 0, Neutrophils # (Auto) 2.7, Lymphocytes # (Auto) 0.7L, Monocytes # (Auto) 0.4, Eosinophils # (Auto) 0.0, Basophils # (Auto) 0.0, Immature Granulocyte # (Auto) 0.0, Percent Immature Platelet Fraction 1.8, Sodium Level 142, Potassium Level 4.2, Chloride Level 118H, Carbon Dioxide Level 15L, Anion Gap 9, Blood Urea Nitrogen 21H, Creatinine 1.23, Estimat Glomerular Filtration Rate 47, BUN/Creatinine Ratio 17, Glucose Level 77, Calcium Level 7.5L, Corrected Calcium 8.5, Magnesium Level 1.6, Total Bilirubin 0.4, Aspartate Amino Transf (AST/SGOT) 13, Alanine Aminotransferase (ALT/SGPT) 6, Alkaline Phosphatase 55, Total Protein 4.2L, Albumin 2.8L Microbiology 12/01/22 Fecal Leukocyte Stain - Final, Resulted Radiology Chest x-ray (12/01/2022): IMPRESSION: 1. Clear lungs. CT abdomen/pelvis (12/01/2022): IMPRESSION: 1. Liquid stool throughout the colon, suggestive of diarrheal illness. No bowel obstruction. No free fluid or free air. 2. No acute abnormalities in the kidneys. No hydronephrosis or solid renal mass. 3. Diverticula in the descending colon without evidence of acute diverticulitis. 4. Patchy opacities in the lung bases, suggestive of inflammatory/infectious process. Physical Exam-([facility]) Physical Exam Vital Signs VS - Last 72 Hours, by Label 12/01/22 12/01/22 12/01/22 12/01/22 11:05 16:46 17:08 17:17 Temp 36.4 36.4 36.6 Pulse 77 77 68 Resp 17 18 B/P (MAP) 133/83 (100) 156/86 (109) Pulse Ox 100 100 100 100 O2 Delivery Room Air Room Air Room Air 12/01/22 12/01/22 12/01/22 12/01/22 17:54 19:00 19:55 20:05 Temp 36.8 Pulse 76 71 67 Resp 18 B/P (MAP) 158/78 (104) Pulse Ox 98 O2 Delivery Room Air Room Air 12/01/22 12/02/22 12/02/22 12/02/22 23:20 01:00 04:50 07:00 Temp 36.5 36.7 Pulse 71 65 63 57 Resp 18 18 B/P (MAP) 115/72 (86) 113/71 (85) Pulse Ox 96 97 O2 Delivery Room Air Room Air 12/02/22 12/02/22 07:41 08:00 Temp 36.2 Pulse 67 Resp 18 B/P (MAP) 104/69 (81) Pulse Ox 98 98 O2 Delivery Room Air Room Air Capillary Refill : Less Than 3 Seconds General Appearance: WD/WN, no apparent distress HEENT: PERRL/EOMI Neck: full range of motion Respiratory: chest non-tender, no respiratory distress, no accessory muscle use, rales Cardiovascular: regular rate, rhythm, no edema, no murmur, other (Port noted in right side of chest) Gastrointestinal: normal bowel sounds, non tender, no organomegaly Extremities: normal range of motion, no pedal edema Neurologic/Psychiatric: normal mood/affect, oriented x 3 Skin: normal color Assessment/Plan Assessment/Plan Admission Status: Inpatient Order (span 2 midnights) Reason for Inpatient Admission: Weakness (1) Acute gastroenteritis Status: Acute Assessment & Plan: Patient presenting with initial diarrhea, nausea and vomiting. She notes that she is continuing to have diarrhea today but is overall feeling somewhat better. CT abdomen was notable for liquid stool likely secondary to GI bug. Patient symptoms is likely secondary to viral illness versus gastroenteritis. Plan: Will continue IV fluids however will decrease rate to 75 mL/h today Continue to encourage oral fluid intake Discontinuing telemetry as there is no indication at this time Antiemetics as needed We will follow-up stool studies (2) Hypokalemia Status: Acute Assessment & Plan: Patient noted to be hypokalemic to 2.9 on admission. Repleted multiple units of potassium on the floor with improvement of potassium to 4.2. Likely secondary to GI losses. Plan: Continue repletion of potassium and magnesium per protocol (3) Nausea and vomiting in adult Status: Acute Assessment & Plan: See plan above (4) Pneumonia Status: Acute Assessment & Plan: Patient noted to have persistent cough since Wednesday as well as Rales noted on physical exam. There is questionable inflammation/infection noted on CT abdomen at the base of the lung however chest x-ray was negative. Plan: We will start her on spectrum antibiotics including IV ceftriaxone 1 g daily and initial dose of IV azithromycin with follow-up being p.o. azithromycin Continue to follow blood counts Robitussin as needed for cough (5) Multiple myeloma Status: Chronic Assessment & Plan: Patient follows with Dr. Rai, oncology in the outpatient. Per elmer Hernández to continue chemotherapy meds. Plan: Continue home meds once verified (6) Thrombocytopenia Status: Chronic Assessment & Plan: Likely chronic secondary to multiple myeloma and chemotherapy treatment Plan: Trend CBCs (7) Neutropenia Status: Chronic Assessment & Plan: Likely chronic secondary to multiple myeloma. Plan: Trend CBCs (8) Anemia Status: Chronic Assessment & Plan: Likely secondary to multiple myeloma chemotherapy treatment. Plan: Continue to trend CBCs. Of note it was noted that patient's hemoglobin from 13.3-9.7 without any overt signs of bleeding. This may be dilutional secondary to fluids. Will follow-up morning CBC Qualifiers: Qualified Codes: D64.9 - Anemia, unspecified RICK OLMOS MD 12/02/22 1106: Home Medications Allergies Coded Allergies: Sulfa (Sulfonamide Antibiotics) (Verified Allergy, Unknown, hives, 05/24/18) latex (Verified Allergy, Unknown, anaphylaxis, 05/24/18) midazolam (Verified Allergy, Unknown, 7/22/22) vancomycin (Verified Allergy, Unknown, hives, 05/24/18) Uncoded Allergies: "SEEDS" (Adverse Reaction, Unknown, 06/18/22) CAN NOT HAVE SEEDS D/T DIVERTICULITIS PER PT Supervisory-Addendum Brief Supervisory Addendum I personally performed the akins portions of the visit, discussed case with resident and concur with resident documentation of history, physical exam, assessment and treatment plan unless otherwise noted. Adding Acute renal insufficiency: improving today, will decrease IVFs 75 and encourage PO hydration Start PT today and plan on d/c in AM NAOMY CARDONA MD, RESIDENT Dec 02, 2022 06:21 RICK OLMOS MD Dec 02, 2022 11:06
[2022-12-02 07:41] VITALS: BP 104/69
[2022-12-02] MEDS ORDERED: AZITHROMYCIN INJECTION 500 MG in NS (IVPB) 250 ML 250 ML IV ONE (11:00)
[2022-12-02 11:25] VITALS: BP 108/70
[2022-12-02] MEDS: cefTRIAXone IV/IM 1,000 MG in NS (IVPB) 50 ML 50 ML IV SCH (11:30)
[2022-12-02] MEDS ORDERED: SENN8.6T62 PO (15:21)
[2022-12-02] MEDS ORDERED: [UNRECOGNIZED DRUG - CODE] PO (15:21)
[2022-12-02] MEDS ORDERED: GBPN600T PO (15:21)
[2022-12-02] MEDS ORDERED: BISA-65 PO (15:21)
[2022-12-02] MEDS ORDERED: THYR15TA PO (15:21)
[2022-12-02] MEDS ORDERED: ALEN70TA80 PO (15:21)
[2022-12-02] MEDS ORDERED: MELA5TAB14 PO (15:21)
[2022-12-02] MEDS ORDERED: CALC-794 PO (15:21)
[2022-12-02] MEDS ORDERED: [UNRECOGNIZED DRUG - CODE] IJ (15:21)
[2022-12-02] MEDS ORDERED: DOCU100T2 PO (15:21)
[2022-12-02 15:28] VITALS: BP 110/61
[2022-12-02 19:17] VITALS: BP 119/58
[2022-12-03] VITALS: BP 100/55
[2022-12-03 03:33] VITALS: BP 102/50
[2022-12-03 05:35] LABS: POTASSIUM 4.1 MMOL/L (3.6-5.0)
[2022-12-03 05:36] LABS: CALCIUM 7.5 MG/DL (8.5-10.1)
[2022-12-03 05:40] LABS: CREATININE SERUM 1.17 MG/DL (0.60-1.30)
[2022-12-03] MEDS: POTASSIUM BICARB 20 MEQ effervescent TABLET PO SCH (05:41)
[2022-12-03] MEDS: POTASSIUM CL 10MEQ/50ML IVPB 50 ML IV SCH (05:41)
[2022-12-03] MEDS: POTASSIUM CHLORIDE 20 MEQ TABLET PO SCH (05:42)
[2022-12-03] MEDS: MAGNESIUM 1 GM/100 ML IVPB 100 ML IV SCH (05:49)
[2022-12-03] MEDS: NS IV 1000 ML 1,000 ML IV SCH (06:53)
[2022-12-03 07:32] VITALS: BP 111/56
[2022-12-03] MEDS: AZITHROMYCIN 250 MG TABLET PO SCH (08:35)
[2022-12-03] MEDS: cefTRIAXone IV/IM 1,000 MG in NS (IVPB) 50 ML 50 ML IV SCH (11:13)
[2022-12-03] MEDS ORDERED: FUROSEMIDE INJECTION 40 MG/4 ML VIAL IVP NR (11:30)
[2022-12-03 11:40] VITALS: BP 108/62
--- NOTE | 2022-12-03 12:46 | CONSULTATION REPORT ---
DATE OF SERVICE: 12/03/2022 The patient is admitted to room 415. PHYSICIAN REQUESTING CONSULTATION: Dr. Shaniqua Suggs. PRIMARY PHYSICIAN: Geneva Sigala APRN. IMPRESSION: 1. A 72-year-old female admitted with nausea, vomiting and dehydration. 2. 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 Maintenance therapy with Velcade from 02/2016 until 2021 with progressive disease noted. 3. Reevaluation at [facility] and treatment changed to daratumumab, lenalidomide and dexamethasone regimen. 4. Chronic diarrhea and dehydration, requiring at least weekly IV fluids on an outpatient basis. EGD/colonoscopy with biopsies completed and was negative for Congo red stain (amyloidosis). RECOMMENDATIONS: 1. Agree with IV hydration and electrolyte replacement as you are doing. 2. Agree with broad spectrum antibiotic therapy for possible pneumonia with bibasilar infiltrates/atelectasis. 3. Start on incentive spirometry. 4. If the diarrhea is continuing, a trial of Questran as an outpatient could be tried. 5. Await stool cultures that are pending. 6. Hold lenalidomide, and dexamethasone until better from the diarrhea and dehydration standpoint. 7. Keep followup appointment at the cancer center as scheduled. BRIEF HISTORY: The patient is a 72-year-old female with history of amyloidosis diagnosed in 2015 when she presented with renal insufficiency and diagnosed with kappa light chain deposition disease. She was evaluated at [facility] and underwent autologous BMT with a complete response. She was on maintenance Velcade from 02/2016 until 2021 when she was noted with progressive disease. She was reevaluated at [facility] and recommended changing treatment to daratumumab, lenalidomide and dexamethasone regimen and has been continuing this. She has had chronic diarrhea and dehydration, requiring IV fluids once or twice weekly on an outpatient basis. Because of this, she had a GI evaluation with EGD and colonoscopy with biopsies which were unremarkable including Congo red stain which showed no evidence of amyloidosis. PAST MEDICAL HISTORY: Significant for hypertension, hypercholesterolemia, chronic kidney disease stage III to IV, hypothyroidism, diverticulosis and diverticulitis, anemia with iron as well as B12 deficiency, right jugular DVT in 2019, osteoporosis and spinal stenosis. PAST SURGICAL HISTORY: Hysterectomy, cholecystectomy, sigmoid colon resection and L5-S1 surgery x2 for spinal stenosis. SOCIAL HISTORY: The patient is and lives in [facility]. She has a son who lives in [place]. 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 No history of tobacco, alcohol or recreational drug use. FAMILY HISTORY: Significant for a mother with colon cancer at 58 years of age and father with prostate cancer at 60 years of age. Cousin on the paternal side of family had thyroid cancer. Hypertension in her siblings. Maternal grandmother with coronary artery disease. Her mother and paternal grandfather had diabetes mellitus. Rest of family history unremarkable. REVIEW OF SYSTEMS: Significant for diarrhea, which has been chronic. This is better after the hospitalization and IV hydration. She has chronic back discomfort, generalized fatigue. Recent nausea and vomiting as well as decreased oral intake. Activity level is limited, but stable. No chest pain, palpitations, orthopnea, or PND. She has stable dyspnea on exertion. No new lumps or masses, no new bony aches or pains, no headaches or visual changes. PHYSICAL EXAMINATION: GENERAL: Showed elderly female, well developed and nourished, awake and oriented, in no acute distress. HEENT: Normocephalic, extraocular muscles intact, conjunctivae pink, oral mucosa slightly dry. NECK: Supple, with no JVD. No cervical, supraclavicular or axillary lymphadenopathy palpable. Chest was symmetrical with a right sided port. LUNGS: With rare crackles in the bases with the rest of the lung perez clear. CARDIOVASCULAR: Regular in rate and rhythm without murmurs or gallops. ABDOMEN: Soft, nontender with no hepatosplenomegaly or other masses palpable. EXTREMITIES: Showed no edema. NEUROLOGIC: Grossly intact without focal motor deficits. CBC done today showed WBC 3.8, hemoglobin 9.7 and platelet count 60,000 with neutrophil count 2.7, lymphocyte count 0.7 and monocyte count 0.4. BMP done today showed normal electrolytes except chloride level of 113 and CO2 of 18, BUN was 11 and creatinine 1.17 with GFR 50 mL per minute, this was 31 at the time of admission. Liver function studies done yesterday was within normal limits. Preliminary stool culture is pending. Rotavirus antigen was negative. CT scan of the abdomen and pelvis done on 12/01/2022 showed liquid stool throughout the colon. No bowel obstruction, no free fluid or free air. Diverticula in the descending colon without evidence of diverticulitis. Patchy opacities in the lung bases suggestive of inflammatory/infectious process. Thank you for allowing me to participate in this patient's care. I will follow the patient with you and make appropriate recommendations. CC: Geneva Sigala APRN ? requested, unable to deliver Job ID: [id number] DocumentID: [id number] Dictated Date: 12/03/2022 12:08:59 Biomedical Engineer Date: 12/03/2022 12:44:00 Dictated By: GILL VIZCAINO MD
--- NOTE | 2022-12-03 15:40 | Progress Note ---
Subjective Subjective/Events-last exam Patient states that she is feeling somewhat better but cough seems to be getting worse. Denies any shortness of breath. Dry cough. No fever or chills. Denies chest pain. Review of Systems General: Fatigue Pulmonary: No Dyspnea; Cough Cardiovascular: No: Chest Pain, Palpitations, Edema Gastrointestinal: Abdominal Pain, Diarrhea; No: Nausea, Vomiting Neurological: Weakness; No: Confusion Focused Exam Lactate Level 12/01/22 11:44: Lactic Acid Level 1.49 Objective Exam Last Set of Vital Signs Vital Signs Date Time Temp Pulse Resp B/P (MAP) Pulse Ox O2 Delivery O2 Flow Rate FiO2 12/03/22 11:40 36.7 62 17 108/62 (77) 97 Room Air 12/03/22 10:01 0.00 Capillary Refill : Less Than 3 Seconds I&O Intake and Output 12/03/22 00:00 Intake Total 4530 ml Balance 4530 ml Intake Oral 1180 ml IV Total 3350 ml # Voids 12 # Bowel Movements 3 General: Alert, Oriented X3, No Acute Distress Lungs: Normal Air Movement, Other (Basilar crackles bilaterally, normal work of breathing.) Heart: Regular Rate, No Murmurs Abdomen: Normal Bowel Sounds, Soft, No Tenderness Extremities: No Tenderness/Swelling Neuro: Normal Speech Results/Procedures Lab Laboratory Tests 12/03/22 05:17: Sodium Level 135, Potassium Level 4.1, Chloride Level 113H, Carbon Dioxide Level 18L, Anion Gap 4L, Blood Urea Nitrogen 11, Creatinine 1.17, Estimat Glomerular Filtration Rate 50, BUN/Creatinine Ratio 9, Glucose Level 79, Calcium Level 7.5L , Magnesium Level 2.0 Microbiology 12/01/22 Fecal Leukocyte Stain - Final, Resulted 12/01/22 Stool Culture - Preliminary, Resulted 12/01/22 Rotavirus Antigen - Final, Resulted Radiology Chest x-ray (12/01/2022): IMPRESSION: 1. Clear lungs. CT abdomen/pelvis (12/01/2022): IMPRESSION: 1. Liquid stool throughout the colon, suggestive of diarrheal illness. No bowel obstruction. No free fluid or free air. 2. No acute abnormalities in the kidneys. No hydronephrosis or solid renal mass. 3. Diverticula in the descending colon without evidence of acute diverticulitis. 4. Patchy opacities in the lung bases, suggestive of inflammatory/infectious process. Assessment/Plan Assessment/Plan (1) Acute gastroenteritis Status: Acute Assessment & Plan: Patient presenting with initial diarrhea, nausea and vomiting. She notes that she is continuing to have diarrhea today but is overall feeling somewhat better. CT abdomen was notable for liquid stool likely secondary to GI bug. Patient symptoms is likely secondary to viral illness versus gastroenteritis. Plan: Will continue IV fluids however will decrease rate to 75 mL/h today Continue to encourage oral fluid intake Discontinuing telemetry as there is no indication at this time Antiemetics as needed We will follow-up stool studies 12/03 - Decrease IVFs and push oral hydration, will give 1 dose of lasix 20 mg IV due to basilar crackles (2) Pneumonia Status: Acute Assessment & Plan: Patient noted to have persistent cough since Wednesday as well as Rales noted on physical exam. There is questionable inflammation/infection noted on CT abdomen at the base of the lung however chest x-ray was negative. Plan: We will start her on spectrum antibiotics including IV ceftriaxone 1 g daily and initial dose of IV azithromycin with follow-up being p.o. azithromycin Continue to follow blood counts Robitussin as needed for cough 12/03: - Continue antibiotics for presumptive PNA (3) Multiple myeloma Status: Chronic Assessment & Plan: Patient follows with Dr. Rai, oncology in the outpatient. Per elmer Hernández to continue chemotherapy meds. Plan: Continue home meds once verified 12/03: - Consulted Dr Thorne, appreciate recommendations (4) Nausea and vomiting in adult Status: Resolved Assessment & Plan: See plan above (5) Thrombocytopenia Status: Chronic Assessment & Plan: Likely chronic secondary to multiple myeloma and chemotherapy treatment Plan: Trend CBCs (6) Neutropenia Status: Chronic Assessment & Plan: Likely chronic secondary to multiple myeloma. Plan: Trend CBCs (7) Anemia Status: Chronic Assessment & Plan: Likely secondary to multiple myeloma chemotherapy treatment. Plan: Continue to trend CBCs. Of note it was noted that patient's hemoglobin from 13.3-9.7 without any overt signs of bleeding. This may be dilutional secondary to fluids. Will follow-up morning CBC Qualifiers: Qualified Codes: D64.9 - Anemia, unspecified (8) Hypokalemia Status: Resolved Assessment & Plan: Patient noted to be hypokalemic to 2.9 on admission. Repleted multiple units of potassium on the floor with improvement of potassium to 4.2. Likely secondary to GI losses. Plan: Continue repletion of potassium and magnesium per protocol RICK OLMSO MD Dec 03, 2022 15:40
[2022-12-03 16:31] VITALS: BP 132/66
[2022-12-03 20:01] VITALS: BP 136/70
[2022-12-04 00:21] VITALS: BP 105/72
[2022-12-04 04:40] VITALS: BP 111/71
[2022-12-04 05:26] LABS: CALCIUM 8.4 MG/DL (8.5-10.1); CREATININE SERUM 1.23 MG/DL (0.60-1.30); MAGNESIUM 1.8 MG/DL (1.6-2.4); POTASSIUM 3.3 MMOL/L (3.6-5.0)
[2022-12-04] MEDS: POTASSIUM BICARB 20 MEQ effervescent TABLET PO SCH (05:36)
[2022-12-04] MEDS: POTASSIUM CL 10MEQ/50ML IVPB 50 ML IV SCH (05:36)
[2022-12-04] MEDS: POTASSIUM CHLORIDE 20 MEQ TABLET PO SCH (05:39)
[2022-12-04] MEDS: MAGNESIUM 1 GM/100 ML IVPB 100 ML IV SCH ×3 (05:41→07:35)
[2022-12-04] MEDS ORDERED: POTASSIUM CHLORIDE 20 MEQ TABLET PO ONE ×2 (08:00→12:00)
[2022-12-04] MEDS ORDERED: POTASSIUM BICARB 20 MEQ effervescent TABLET PO ONE ×3 (08:00→16:00)
[2022-12-04 08:10] VITALS: BP 109/75
[2022-12-04] MEDS: AZITHROMYCIN 250 MG TABLET PO SCH (08:46)
[2022-12-04] MEDS ORDERED: CEFD300C3 PO (10:10)
[2022-12-04] MEDS ORDERED: AZIT250T12 PO (10:10)
--- NOTE | 2022-12-04 10:12 | Discharge Summary ---
NAOMY CARDONA MD, RESIDENT 12/04/22 1012: Discharge Summary Hospital Course Problems Reviewed?: Yes Problems/Diagnosis: (1) Acute gastroenteritis Status: Resolved Resolution Date/Time: 12/04/22 @ 10:57 Assessment & Plan: Patient presenting with initial diarrhea, nausea and vomiting. CT abdomen was notable for liquid stool likely secondary to GI bug. Patient symptoms is likely secondary to viral illness versus gastroenteritis. Diarrhea improved today. Improvement in respiratory status with Lasix dose yesterday. Plan: Discontinued, patient able to maintain oral hydration Antiemetics as needed Stool studies negative (2) Pneumonia Status: Acute Assessment & Plan: Patient noted to have persistent cough since Wednesday as well as Rales noted on physical exam. There is questionable inflammation/infection noted on CT abdomen at the base of the lung however chest x-ray was negative. Plan: Plan for discharge today. Will discharge patient home on azithromycin and cefdinir to complete pneumonia treatment course Robitussin as needed for cough (3) Multiple myeloma Status: Chronic Assessment & Plan: Patient follows with Dr. Rai, oncology in the outpatient. Per elmer Hernández to continue chemotherapy meds. Plan: Dr. Thorne, hold dexamethasone and lenalidomide until follow-up appointment next week. (4) Nausea and vomiting in adult Status: Resolved Resolution Date/Time: 12/03/22 @ 15:39 Assessment & Plan: See plan above (5) Thrombocytopenia Status: Chronic Assessment & Plan: Likely chronic secondary to multiple myeloma and chemotherapy treatment Plan: Trend CBCs (6) Neutropenia Status: Chronic Assessment & Plan: Likely chronic secondary to multiple myeloma. Plan: Trend CBCs (7) Anemia Status: Chronic Assessment & Plan: Likely secondary to multiple myeloma chemotherapy treatment. Plan: Continue to trend CBCs. Of note it was noted that patient's hemoglobin from 13.3-9.7 without any overt signs of bleeding. This may be dilutional secondary to fluids. Will follow-up morning CBC Qualifiers: Qualified Codes: D64.9 - Anemia, unspecified (8) Hypokalemia Status: Chronic Assessment & Plan: Potassium 3.3, repleted with oral potassium today. Hospital Course Date of Admission: Dec 01, 2022 at 15:55 Admission Diagnosis : Family Physician/Provider: [place]/On License Of [facility] Date of Discharge: 12/04/22 Discharge Diagnosis: [Gastroenteritis, pneumonia] Hospital Course: [Patient is a 72-year-old female with a past medical history of multiple myeloma who presented with generalized weakness secondary to persistent nausea, vomiting and diarrhea. In the ED, patient was noted to be dehydrated and given her cancer history was ultimately admitted for further evaluation. Diarrhea was likely secondary to gastroenteritis however we also treated for presumptive pneumonia given that patient had a cough and possible lung infection noted on CT abdomen. She was thus treated with troxidone and azithromycin with overall improvement in her symptoms. Stool culture showed no concerning findings prior to discharge. She was discharged home with cefdinir and azithromycin. Of note Dr. Rai, patient's oncologist, was consulted who recommended that she discontinue dexamethasone and lenalidomide until follow-up appointment next week.] Labs and Pending Lab Test: Laboratory Tests 12/04/22 04:45: Sodium Level 139, Potassium Level 3.3L, Chloride Level 109H, Carbon Dioxide Level 20L, Anion Gap 10, Blood Urea Nitrogen 13, Creatinine 1.23, Estimat Glomerular Filtration Rate 47, BUN/Creatinine Ratio 11, Glucose Level 70, Calcium Level 8.4L, Magnesium Level 1.8 Microbiology 12/01/22 Fecal Leukocyte Stain - Final, Complete 12/01/22 Stool Culture - Final, Complete 12/01/22 Rotavirus Antigen - Final, Complete Home Meds Active Cefdinir 300 Mg Capsule 300 Mg PO BID 5 Days Azithromycin 250 Mg Tablet 250 Mg PO DAILY 2 Days Reported Darzalex (Daratumumab) 400 Mg/20 Ml (20 Mg/Ml) Vial 1,800 Mg IJ EVERY 28 DAYS Melatonin 5 Mg Tablet 5 Mg PO HS PRN Docusate Sodium 100 Mg Tablet 100 Mg PO BID PRN Dulcolax (Bisacodyl) 5 Mg Tablet.dr 5 Mg PO BID PRN Vegetable Laxative (Sennosides) 8.6 Mg Tablet 8.6 Mg PO BID PRN Alendronate Sodium 70 Mg Tablet 70 Mg PO KANEE Lynndyl Thyroid (Thyroid,Pork) 15 Mg Tablet 15 Mg PO DAILY Gabapentin 600 Mg Tablet 600 Mg PO HS Lenalidomide 2.5 Mg Capsule 2.5 Mg PO 2030 TAKES FOR 21 DAYS, STOPS FOR 7 DAYS AND THEN STARTS AGAIN Calcium + D3 ER Tablet (Calcium Carb & Citrate/Vit D3) 600MG-12.5 Tablet.er 2 Each PO BID ALPRAZolam 0.25 Mg Tablet 0.25 Mg PO TID PRN Ambien (Zolpidem Tartrate) 5 Mg Tablet 5 Mg PO HS PRN 2ND LINE Rosuvastatin Calcium 10 Mg Tablet 10 Mg PO DAILY K-Tab ER (Potassium Chloride) 10 Meq Tablet.er 10 Meq PO HS K-Tab ER (Potassium Chloride) 10 Meq Tablet.er 20 Meq PO DAILY TAKES 2 (10MEQ) TABS Morphine Sulfate ER (Morphine Sulfate) 30 Mg Tablet.er 30 Mg PO Q12H Transderm-Scop (Scopolamine) 1 Mg/3 Day Patch.td72 1 Patch TD EVERY 72 HOURS Eliquis (Apixaban) 5 Mg Tablet 5 Mg PO BID Ondansetron Odt (Ondansetron) 8 Mg Tab.rapdis 8 Mg PO TID PRN Temazepam 15 Mg Capsule 15 Mg PO HS PRN 1ST LINE Morphine Sulfate IR Tablet (Morphine Sulfate) 15 Mg Tablet 15 Mg PO DAILY PRN Pantoprazole Sodium 40 Mg Tablet.dr 40 Mg PO DAILY Acyclovir 400 Mg Tablet 400 Mg PO BID K-Phos Original (Potassium Phosphate,Monobasic) 500 Mg Tablet.alba 1,000 Mg PO BID TAKES 2 (500MG) TABS Assessment/Pt DC Instructions Please see electronic discharge instructions given to patient. Discharge Diet: No Restrictions Activity as Tolerated: Yes Consulations Consultations Oncology Discharge Physical Examination Allergies: Coded Allergies: Sulfa (Sulfonamide Antibiotics) (Verified Allergy, Unknown, hives, 05/24/18) latex (Verified Allergy, Unknown, anaphylaxis, 05/24/18) midazolam (Verified Allergy, Unknown, 08/29/21) vancomycin (Verified Allergy, Unknown, hives, 05/24/18) Uncoded Allergies: "SEEDS" (Adverse Reaction, Unknown, 06/18/22) CAN NOT HAVE SEEDS D/T DIVERTICULITIS PER PT Vitals & I&Os Vital Signs Date Time Temp Pulse Resp B/P (MAP) Pulse Ox O2 Delivery O2 Flow Rate FiO2 12/04/22 08:10 35.8 71 18 109/75 (86) 96 Room Air 12/04/22 04:40 36.3 69 20 111/71 (84) 93 Room Air 12/04/22 00:21 35.9 63 18 105/72 (83) 97 Room Air 12/03/22 20:01 36.3 60 17 136/70 (92) 97 Room Air 12/03/22 19:28 Room Air 12/03/22 16:31 37.9 71 19 132/66 (88) 98 Room Air 12/03/22 15:43 Room Air 0.00 12/03/22 11:40 36.7 62 17 108/62 (77) 97 Room Air I & O 12/04/22 07:00 Intake Total 2300 ml Output Total 3650 ml Balance -1350 ml General Appearance: No Apparent Distress HEENT: PERRL/EOMI Respiratory: Chest Non Tender, Lungs Clear, Normal Breath Sounds, No Accessory Muscle Use, No Respiratory Distress Cardiovascular: Regular Rate, Rhythm, No Edema, No Murmur Gastrointestinal: Normal Bowel Sounds, No Organomegaly, Soft Extremity: No Pedal Edema Skin: Normal Color, Warm/Dry Neurologic/Psychiatric: Alert, Oriented x3 RICK OLMOS MD 12/04/22 1117: Discharge Summary Discharge Physical Examination Allergies: Coded Allergies: Sulfa (Sulfonamide Antibiotics) (Verified Allergy, Unknown, hives, 05/24/18) latex (Verified Allergy, Unknown, anaphylaxis, 05/24/18) midazolam (Verified Allergy, Unknown, 08/29/21) vancomycin (Verified Allergy, Unknown, hives, 05/24/18) Uncoded Allergies: "SEEDS" (Adverse Reaction, Unknown, 06/18/22) CAN NOT HAVE SEEDS D/T DIVERTICULITIS PER PT Supervisory-Addendum Brief Supervisory Addendum I personally performed the akins portions of the visit, discussed case with resident and concur with resident documentation of history, physical exam, assessment and treatment plan unless otherwise noted. NAOMY CARDONA MD, RESIDENT Dec 04, 2022 10:12 RICK OLMOS MD Dec 04, 2022 11:17
[2022-12-04] MEDS: cefTRIAXone IV/IM 1,000 MG in NS (IVPB) 50 ML 50 ML IV SCH (10:26)
[2022-12-04 11:00] VITALS: BP 109/75
== END 2022-12-04 10:10 | disposition home or self-care (01) ==
LOC: EDUNIT# 10:51 → ER FS 10:52 → UNDOADMOB 15:55 → 4TH 15:55 → INTOOBSV 15:55 → 4TH 16:15 → UNDODISOB 12-04 10:10 → 4TH 12-04 12:17
PROVIDERS: ADMIT Family Medicine; ATTEND Family Medicine
DX: K52.9 Noninfective gastroenteritis and colitis, unspecified (principal); J18.9 Pneumonia, unspecified organism; C90.00 Multiple myeloma not having achieved remission; D69.6 Thrombocytopenia, unspecified; D70.9 Neutropenia, unspecified; D64.9 Anemia, unspecified; E87.6 Hypokalemia; E86.0 Dehydration; N17.9 Acute kidney failure, unspecified; K90.49 Malabsorption due to intolerance, not elsewhere classified
CPT/HCPCS: 36415; 71045; 74177; 80048; 80053; 81000; 83605; 83735; 84484; 85025; 87015; 87045; 87046; 87425; 87636; 87899; 89055; 93005; 94664; 94760; 96361; 96366; 96374; 96375; 96376; G0378; Q9967

== ENCOUNTER 2022-12-09 17:02 | Observation (INO) | payer MEDICARE, OTHER ==
[~2022-12-09] VITALS: Ht 154.9 cm; Wt 54.6 kg
[~2022-12-09 17:02] MED LIST changes: +ALEN70TA80 PO; +AZIT250T12 PO; +BISA-65 PO; +CALC-794 PO; +CEFD300C3 PO; +DOCU100T2 PO; +MELA5TAB14 PO; +THYR15TA PO; +[UNRECOGNIZED DRUG - CODE] IJ; +[UNRECOGNIZED DRUG - CODE] PO
--- NOTE | 2022-12-09 17:23 | ED GI ---
General Chief Complaint: Abdominal/GI Problems Stated Complaint: NAUSEA, VOMIT, DIARRHEA Source of Information: Patient Exam Limitations: No Limitations History of Present Illness Date Seen by Provider: Dec 09, 2022 Time Seen by Provider: 17:21 Initial Comments Patient is a 72-year-old female with a history of multiple myeloma who presents ED for nausea vomiting diarrhea. Vomiting started late last night. She reports 10+ episodes without any blood or mucus. She also reports 10+ episodes of watery stool. She states she has had these episodes in the past. She is currently on chemotherapy once a week. Follows Dr. Michael. Recently admitted for dehydration and similar symptoms. Was seen today at the clinic received IV fluids and IV potassium. She had lab work drawn which noted low potassium. She reports feeling cold with generalized weakness. She reports a mild cough. She denies any chest pain, headache, dizziness, visual changes, sore throat, ear pain, abdominal pain, dysuria, fever. She is not currently on antibiotics. Allergies and Home Medications Allergies Coded Allergies: Sulfa (Sulfonamide Antibiotics) (Verified Allergy, Unknown, hives, 05/24/18) latex (Verified Allergy, Unknown, anaphylaxis, 05/24/18) midazolam (Verified Allergy, Unknown, 08/29/21) vancomycin (Verified Allergy, Unknown, hives, 05/24/18) Uncoded Allergies: "SEEDS" (Adverse Reaction, Unknown, 06/18/22) CAN NOT HAVE SEEDS D/T DIVERTICULITIS PER PT Patient Home Medication List Home Medication List Reviewed: Yes ALPRAZolam (ALPRAZolam) 0.25 Mg Tablet, 0.25 MG PO TID PRN for ANXIETY, (Reported) Entered as Reported by: BARTOLO HANNA on 06/16/22 1539 Acyclovir (Acyclovir) 400 Mg Tablet, 400 MG PO BID, (Reported) Entered as Reported by: MAI SEGOVIA on 05/24/18 0932 Alendronate Sodium (Alendronate Sodium) 70 Mg Tablet, 70 MG PO TUE, (Reported) Entered as Reported by: BARTOLO HANNA on 12/02/22 1521 Apixaban (Eliquis) 5 Mg Tablet, 5 MG PO BID, (Reported) Entered as Reported by: ANA LUISA NOVA on 03/01/19 1220 Azithromycin (Azithromycin) 250 Mg Tablet, 250 MG PO DAILY Prescribed by: Shazia Portillo on 12/04/22 1010 Bisacodyl (Dulcolax) 5 Mg Tablet.dr, 5 MG PO BID PRN for CONSTIPATION-4TH LINE, (Reported) Entered as Reported by: BARTOLO HANNA on 12/02/22 1521 Calcium Carb & Citrate/Vit D3 (Calcium + D3 ER Tablet) 600MG-12.5 Tablet.er, 2 EACH PO BID, (Reported) Entered as Reported by: BARTOLO HANNA on 12/02/22 1521 Cefdinir (Cefdinir) 300 Mg Capsule, 300 MG PO BID Prescribed by: Shazia Portillo on 12/04/22 1010 Daratumumab (Darzalex) 400 Mg/20 Ml (20 Mg/Ml) Vial, 1,800 MG IJ EVERY 28 DAYS, (Reported) Entered as Reported by: BARTOLO HANNA on 12/02/22 1521 Docusate Sodium (Docusate Sodium) 100 Mg Tablet, 100 MG PO BID PRN for CONSTIPATION-1ST LINE, (Reported) Entered as Reported by: BARTOLO HANNA on 12/02/22 1521 Gabapentin (Gabapentin) 600 Mg Tablet, 600 MG PO HS, (Reported) Entered as Reported by: BARTOLO HANNA on 12/02/22 1521 Melatonin (Melatonin) 5 Mg Tablet, 5 MG PO HS PRN for SLEEP, (Reported) Entered as Reported by: BARTOLO HANNA on 12/02/22 1521 Morphine Sulfate (Morphine Sulfate IR Tablet) 15 Mg Tablet, 15 MG PO DAILY PRN for PAIN-SEVERE (8-10), (Reported) Entered as Reported by: ANA LUISA NOVA on 03/01/19 1043 Morphine Sulfate (Morphine Sulfate ER) 30 Mg Tablet.er, 30 MG PO Q12H, (Reported) Entered as Reported by: BARTOLO HANNA on 06/16/22 1539 Ondansetron (Ondansetron Odt) 8 Mg Tab.rapdis, 8 MG PO TID PRN for NAUSEA/VOMITING-1ST LINE, (Reported) Entered as Reported by: ANA LUISA NOVA on 03/01/19 1044 Pantoprazole Sodium (Pantoprazole Sodium) 40 Mg Tablet.dr, 40 MG PO DAILY, (Reported) Entered as Reported by: MAI SEGOVIA on 05/24/18 0932 Potassium Chloride (K-Tab ER) 10 Meq Tablet.er, 20 MEQ PO DAILY, (Reported) Entered as Reported by: BARTOLO HANNA on 06/16/22 153 Potassium Chloride (K-Tab ER) 10 Meq Tablet.er, 10 MEQ PO HS, (Reported) Entered as Reported by: BARTOLO HANNA on 06/16/22 1539 Potassium Phosphate,Monobasic (K-Phos Original) 500 Mg Tablet.alba, 1,000 MG PO BID, (Reported) Entered as Reported by: MAI SEGOVIA on 05/24/18 0932 Rosuvastatin Calcium (Rosuvastatin Calcium) 10 Mg Tablet, 10 MG PO DAILY, (Reported) Entered as Reported by: BARTOLO HANNA on 06/16/22 153 Scopolamine (Transderm-Scop) 1 Mg/3 Day Patch.td72, 1 PATCH TD EVERY 72 HOURS, (Reported) Entered as Reported by: BARTOLO HANNA on 06/16/22 153 Sennosides (Vegetable Laxative) 8.6 Mg Tablet, 8.6 MG PO BID PRN for CONSTIPATION-5TH LINE, (Reported) Entered as Reported by: BARTOLO HANNA on 12/02/22 152 Temazepam (Temazepam) 15 Mg Capsule, 15 MG PO HS PRN for SLEEP, (Reported) Entered as Reported by: ANA LUISA NOVA on 03/01/19 1043 Thyroid,Pork ([place] Thyroid) 15 Mg Tablet, 15 MG PO DAILY, (Reported) Entered as Reported by: BARTOLO HANNA on 12/02/22 1521 Zolpidem Tartrate (Ambien) 5 Mg Tablet, 5 MG PO HS PRN for SLEEP, (Reported) Entered as Reported by: BARTOLO HANNA on 06/16/22 1539 Discontinued Medications Calcium Citrate/Vitamin D3 (Citracal-Vit D 200 mg-250 Tab) 200MG-6.25 Tablet, 2 EACH PO BID, (Reported) Discontinued Reason: Prescription changed Entered as Reported by: BARTOLO HANNA on 06/16/22 1539 Cephalexin (Cephalexin) 500 Mg Tablet, 500 MG PO q 8 hours Discontinued Reason: No Longer Taking Prescribed by: Alejandra diaz on 11/13/22 1352 Gabapentin (Gabapentin) 400 Mg Capsule, 400 MG PO HS, (Reported) Discontinued Reason: No Longer Taking Entered as Reported by: BARTOLO HANNA on 06/16/22 1539 Lenalidomide (Revlimid) 5 Mg Capsule, 5 MG PO 2030 X 21 DAYS, (Reported) Discontinued Reason: No Longer Taking Entered as Reported by: BARTOLO HANNA on 06/16/22 1539 Lenalidomide (Lenalidomide) 2.5 Mg Capsule, 2.5 MG PO 2030, (Reported) Entered as Reported by: BARTOLO HANNA on 12/02/22 1521 Methylprednisolone (Methylprednisolone Dose Pack) 4 Mg Tablet, 20 MG PO DAILY- DAYS 2 &3 POST TX, (Reported) Discontinued Reason: No Longer Taking Entered as Reported by: BARTOLO HANNA on 06/16/22 1547 Metoclopramide HCl (Metoclopramide HCl) 5 Mg Tablet, 5 MG PO QIDACHS PRN for NAUSEA/VOMITING-3RD LINE, (Reported) Discontinued Reason: No Longer Taking Entered as Reported by: BARTOLO HANNA on 06/16/22 153 Prednisone (Prednisone) 20 Mg Tab, 40 MG PO DAILY@0700 Discontinued Reason: No Longer Taking Prescribed by: RICK OLMOS on 06/19/22 1017 Promethazine HCl (Promethazine Tablet) 25 Mg Tablet, 25 MG PO Q6H PRN for NAUSEA/VOMITING-2ND LINE, (Reported) Discontinued Reason: No Longer Taking Entered as Reported by: BARTOLO HANNA on 06/16/22 153 Sennosides (Vegetable Laxative) 8.6 Mg Tablet, 8.6 MG PO BID PRN for CONSTIPATION-5TH LINE, (Reported) Discontinued Reason: No Longer Taking Entered as Reported by: BARTOLO HANNA on 06/16/22 1539 Thyroid,Pork ([place] Thyroid) 30 Mg Tablet, 30 MG PO DAILY, (Reported) Discontinued Reason: No Longer Taking Entered as Reported by: ANA LUISA NOVA on 03/01/19 1212 Review of Systems Review of Systems Constitutional: No chills, No diaphoresis, No fever; malaise, weakness EENTM: No Double Vision, No Eye Pain, No Ear Pain, No Mouth Pain, No Mouth Swelling Respiratory: Denies Cough, Denies Orthopnea Cardiovascular: Denies Chest Pain Gastrointestinal: Denies Abdominal Pain; Diarrhea, Nausea, Vomiting Genitourinary: Denies Burning, Denies Discharge, Denies Drainage, Denies Frequency Musculoskeletal: No back pain, No joint pain Skin: No change in color, No change in hair/nails Psychiatric/Neurological: Denies Anxiety, Denies Depressed All Other Systems Reviewed Negative Unless Noted: Yes Past Srjsfry-Gfvyvr-Pxuqxp Hx Patient Social History Tobacco Use?: No Substance use?: No Alcohol Use?: No Immunizations Up To Date First/Initial COVID19 Vaccinat: pt unable to recall which one Second COVID19 Vaccination Luis: pt unable to recall which one Third COVID19 Vaccination Date: pt unable to recall which one Seasonal Allergies Seasonal Allergies: No Past Medical History Surgery/Hospitalization HX: [place]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; High Cholesterol; HTN; Anxiety Surgeries: Yes (colon resection; stem cell transplant) Appendectomy, Bowel Surgery, Gallbladder, Hysterectomy Respiratory: No Cardiac: Yes Hypertension Neurological: No Genitourinary: Yes Bladder Infection Gastrointestinal: No Musculoskeletal: No Endocrine: No HEENT: No Cancer: Yes (blood cancer; light chain proteins, MULTIPLE MYELOMA) Psychosocial: No Integumentary: No Blood Disorders: Yes Family Medical History Cancer, Stroke Physical Exam Vital Signs Vital Signs - First Documented 12/09/22 17:18 Temp 37.0 Pulse 60 B/P (MAP) 137/85 (102) Pulse Ox 100 O2 Delivery Room Air Capillary Refill : Height/Weight/BMI Height: 5'1.00" Weight: 127lbs. oz. 57.866770tq; 21.81 BMI Method:Stated General Appearance: WD/WN, no apparent distress HEENT: PERRL/EOMI, normal ENT inspection, TMs normal, pharynx normal Neck: non-tender, full range of motion, supple Respiratory: chest non-tender, lungs clear, normal breath sounds, no respiratory distress, no accessory muscle use Cardiovascular: regular rate, rhythm, no edema, no gallop, no JVD Gastrointestinal: normal bowel sounds, non tender, soft, no organomegaly Extremities: normal range of motion, non-tender, normal inspection, no pedal edema Back: normal inspection, no CVA tenderness Neurologic/Psychiatric: edge cutter II-XII nml as tested, no motor/sensory deficits, alert, normal mood/affect, oriented x 3 Skin: normal color, warm/dry Progress/Results/Core Measures Results/Orders Lab Results Laboratory Tests Test 12/09/22 17:31 12/09/22 17:51 Range/Units White Blood Count 3.1 L 4.3-11.0 10^3/uL Red Blood Count 2.93 L 3.80-5.11 10^6/uL Hemoglobin 10.4 L 11.5-16.0 g/dL Hematocrit 30 L 35-52 % Mean Corpuscular Volume 103 H 80-99 fL Mean Corpuscular Hemoglobin 36 H 25-34 pg Mean Corpuscular Hemoglobin Concent 34 32-36 g/dL Red Cell Distribution Width 12.1 10.0-14.5 % Platelet Count 136 130-400 10^3/uL Mean Platelet Volume 10.2 9.0-12.2 fL Immature Granulocyte % (Auto) 1 % Neutrophils (%) (Auto) 75 42-75 % Lymphocytes (%) (Auto) 15 12-44 % Monocytes (%) (Auto) 8 0-12 % Eosinophils (%) (Auto) 0 0-10 % Basophils (%) (Auto) 0 0-10 % Neutrophils # (Auto) 2.3 1.8-7.8 10^3/uL Lymphocytes # (Auto) 0.5 L 1.0-4.0 10^3/uL Monocytes # (Auto) 0.3 0.0-1.0 10^3/uL Eosinophils # (Auto) 0.0 0.0-0.3 10^3/uL Basophils # (Auto) 0.0 0.0-0.1 10^3/uL Immature Granulocyte # (Auto) 0.0 0.0-0.1 10^3/uL Sodium Level 141 135-145 MMOL/L Potassium Level 2.9 L 3.6-5.0 MMOL/L Chloride Level 116 H 98-107 MMOL/L Carbon Dioxide Level 17 L 21-32 MMOL/L Anion Gap 8 5-14 MMOL/L Blood Urea Nitrogen 14 7-18 MG/DL Creatinine 1.23 0.60-1.30 MG/DL Estimat Glomerular Filtration Rate 47 BUN/Creatinine Ratio 11 Glucose Level 136 H 70-105 MG/DL Calcium Level 8.0 L 8.5-10.1 MG/DL Corrected Calcium 8.5 8.5-10.1 MG/DL Magnesium Level 1.5 L 1.6-2.4 MG/DL Total Bilirubin 0.8 0.1-1.0 MG/DL Aspartate Amino Transf (AST/SGOT) 12 5-34 U/L Alanine Aminotransferase (ALT/SGPT) 9 0-55 U/L Alkaline Phosphatase 70 40-136 U/L Total Protein 5.1 L 6.4-8.2 GM/DL Albumin 3.4 3.2-4.5 GM/DL Lipase 60 8-78 U/L Urine Color YELLOW Urine Clarity CLEAR Urine pH 7.0 5-9 Urine Specific [place] 1.020 1.016-1.022 Urine Protein NEGATIVE NEGATIVE Urine Glucose (UA) TRACE H NEGATIVE Urine Ketones NEGATIVE NEGATIVE Urine Nitrite NEGATIVE NEGATIVE Urine Bilirubin NEGATIVE NEGATIVE Urine Urobilinogen 0.2 < = 1.0 MG/DL Urine Leukocyte Esterase NEGATIVE NEGATIVE Urine RBC (Auto) TRACE H NEGATIVE Urine RBC NONE /HPF Urine WBC NONE /HPF Urine Squamous Epithelial Cells RARE /HPF Urine Crystals NONE /LPF Urine Bacteria TRACE /HPF Urine Casts NONE /LPF Urine Mucus NEGATIVE /LPF Urine Culture Indicated NO My Orders Orders - LUIS ALBERTO MERCEDES PA Cbc And Automated Diff (12/09/22 17:20) Comprehensive Metabolic Panel (12/09/22 17:20) Lipase (12/09/22 17:20) Magnesium (12/09/22 17:20) Ua Culture If Indicated (12/09/22 17:20) Chest 1 View, Ap/Pa Only (12/09/22 17:20) Ns Iv 1000 Ml (Ns Iv 1000 Ml) (12/09/22 17:24) Stool Culture (12/09/22 17:35) Fecal Wbc (12/09/22 17:35) C Difficile Ag + Toxin A/B. (12/09/22 17:35) Potassium Cl 10meq/50ml Ivpb (Kcl 10 Meq (12/09/22 18:15) Ed Admission (Communication) (12/09/22 18:16) Metoclopramide Injection (Metoclopramide (12/09/22 18:30) Ns Iv 500 Ml (Ns Iv 500 Ml) (12/09/22 18:40) Medications Given in ED Current Medications Medications Dose Ordered Sig/Eligio Route Start Time Stop Time Status Last Admin Dose Admin Metoclopramide HCl 5 mg ONCE ONCE IVP 12/09/22 18:30 12/09/22 18:31 DC 12/09/22 18:28 5 MG Potassium Chloride 50 ml @ 50 mls/hr ONCE ONCE IV 12/09/22 18:15 12/09/22 19:14 12/09/22 18:28 50 MLS/HR Vital Signs/I&O 12/09/22 17:18 Temp 37.0 Pulse 60 B/P (MAP) 137/85 (102) Pulse Ox 100 O2 Delivery Room Air Departure Communication (PCP) Patient presents to the ED for vomiting diarrhea. History of similar symptoms. Currently receiving chemotherapy since follows Dr. Michael for multiple myeloma. Was seen in the office today for IV fluids. Continue with vomiting and diarrhea since last night. Has not been able to eat. She is found to have a potassium of 2.8. She did receive IV potassium. Continue weakness fatigue vomiting and diarrhea at home. She has been seen multiple visits for nausea vo miting diarrhea. Not currently on antibiotics. Recently admitted suspicious for pneumonia. Was treated with antibiotics not currently on antibiotics. Denies of any strong odor fever chills chest pain or shortness of breath. Generalized lab work was ordered. CBC showed white blood count of 3.1 chronically low. Hemoglobin of 10, potassium of 2.9. normal liver function and kidney function. Normal neutrophils. Afebrile. Stable vital signs. Chest x- ray was negative for pneumonia. Urinalysis negative for infection. Started vomiting here received her Reglan. She was prescribed Reglan by Dr. Michael today. Discussed patient with Dr. Walsh hospitalist who agreed to accept patient for dehydration and hypokalemia. Received 10 mEq of IV potassium here. Started on a liter of fluid. Soft abdomen without any tenderness. GI cultures pending. Impression Primary Impression: Dehydration Additional Impression: Hypokalemia Disposition: ADMITTED INPATIENT Condition: Stable Admissions Decision to Admit Reason: Admit from ER (General) Decision to Admit/Date: Dec 09, 2022 Time/Decision to Admit Time: 18:15 Departure-Patient Inst. Referrals: ANA LUISA BARRAGAN APRN (PCP) Primary Care Physician [facility] (Family) Primary Care Physician LUIS ALBERTO MERCEDES Dec 09, 2022 17:23
[2022-12-09] MEDS ORDERED: NS IV 1000 ML 1,000 ML IV STA (17:24)
[2022-12-09 17:40] LABS: BASOPHILS % (AUTO) 0 % (0-10); EOSINOPHILS % (AUTO) 0 % (0-10); HEMATOCRIT 30 % (35-52); HEMOGLOBIN 10.4 g/dL (11.5-16.0); LYMPHOCYTES # (AUTO) 0.5 10^3/uL (1.0-4.0); LYMPHOCYTES % (AUTO) 15 % (12-44); MEAN CORPUSCULAR HEMOGLOBIN 36 pg (25-34); MEAN CORPUSCULAR HGB CONC 34 g/dL (32-36); MEAN CORPUSCULAR VOLUME 103 fL (80-99); MEAN PLATELET VOLUME 10.2 fL (9.0-12.2); MONOCYTES # (AUTO) 0.3 10^3/uL (0.0-1.0); MONOCYTES % (AUTO) 8 % (0-12); NEUTROPHILS # (AUTO) 2.3 10^3/uL (1.8-7.8); NEUTROPHILS % (AUTO) 75 % (42-75); PLATELET COUNT 136 10^3/uL (130-400); WHITE BLOOD COUNT 3.1 10^3/uL (4.3-11.0)
--- NOTE | 2022-12-09 17:51 | Diagnostic Imaging Report ---
INDICATION: Cough. COMPARISON: 12/01/2022. FINDINGS: The lungs appear clear without focal airspace opacities or consolidation. There are no findings of an effusion. There is no evidence of a pneumothorax. Heart size and mediastinal contours appear appropriate. Pulmonary vascularity appears within normal limits. Positioning of the patient's right-sided port is unchanged. There is no acute or suspicious osseous abnormality demonstrated. IMPRESSION: No radiographic evidence of an acute cardiopulmonary process. Dictated by: Dictated on workstation # [id number]
[2022-12-09 17:53] LABS: ALBUMIN 3.4 GM/DL (3.2-4.5); POTASSIUM 2.9 MMOL/L (3.6-5.0)
[2022-12-09 17:56] LABS: TOTAL PROTEIN 5.1 GM/DL (6.4-8.2)
[2022-12-09 17:58] LABS: BILIRUBIN,TOTAL 0.8 MG/DL (0.1-1.0)
[2022-12-09 18:00] LABS: CREATININE SERUM 1.23 MG/DL (0.60-1.30)
[2022-12-09 18:03] LABS: MAGNESIUM 1.5 MG/DL (1.6-2.4)
[2022-12-09] MEDS ORDERED: POTASSIUM CL 10MEQ/50ML IVPB 50 ML IV ONE (18:15)
[2022-12-09 18:20] LABS: BACTERIA,URINE TRACE /HPF; BILIRUBIN,URINE NEGATIVE (NEGATIVE); CLARITY,URINE CLEAR; COLOR,URINE YELLOW; GLUCOSE, URINE (UA) TRACE (NEGATIVE); KETONES,URINE NEGATIVE (NEGATIVE); LEUKOCYTE ESTERASE ,URINE NEGATIVE (NEGATIVE); NITRITE,URINE NEGATIVE (NEGATIVE); PROTEIN,URINE NEGATIVE (NEGATIVE)
[2022-12-09 18:21] LABS: SQUAMOUS EPITHELIAL CELL,UR RARE /HPF
[2022-12-09] MEDS ORDERED: METOCLOPRAMIDE INJ 10 MG/2 ML IVP ONE (18:30)
[2022-12-09] MEDS ORDERED: NS IV 500 ML 500 ML IV STA (18:40)
[2022-12-09] MEDS ORDERED: NS IV 500 ML 500 ML ONE (18:43)
[2022-12-09] MEDS ORDERED: HYDROmorphone INJECTION 2 MG/ML VIAL IV PRN (18:45)
[2022-12-09] MEDS ORDERED: ONDANSETRON INJECTION 4 MG/2 ML (SDV) IV PRN (18:45)
[2022-12-09] MEDS ORDERED: ACETAMINOPHEN 325 MG TABLET PO PRN (18:45)
[2022-12-09] MEDS ORDERED: BISACODYL 10 MG SUPPOSITORY PR PRN (18:45)
[2022-12-09] MEDS ORDERED: MELATONIN 3 MG TABLET PO PRN (18:45)
[2022-12-09] MEDS ORDERED: ENOXAPARIN 100 MG/1 ML SYRINGE SC SCH (18:45)
[2022-12-09] MEDS ORDERED: ANTACID SUSPENSION 30 ML UDC PO PRN (18:45)
[2022-12-09] MEDS ORDERED: LORazepam 0.5 MG TABLET PO PRN (18:45)
[2022-12-09] MEDS ORDERED: diphenhydrAMINE INJ 50 MG/ML VIAL IVP PRN (18:45)
[2022-12-09] MEDS ORDERED: diphenhydrAMINE 25 MG TABLET PO PRN (18:45)
[2022-12-09] MEDS ORDERED: LACTULOSE SYRUP 10GM/15ML 30ML UDC PO PRN (18:45)
[2022-12-09] MEDS ORDERED: ONDANSETRON 4 MG ORAL DISSOLVE TABLET PO PRN (18:45)
[2022-12-09] MEDS ORDERED: oxyCODONE IMMEDIATE RELEASE 5 MG TABLET PO PRN (18:45)
[2022-12-09] MEDS ORDERED: METOCLOPRAMIDE INJ 10 MG/2 ML IVP PRN (18:45)
[2022-12-09] MEDS ORDERED: CALCIUM CARBONATE 500 MG CHEW TABLET PO PRN (18:45)
[2022-12-09] MEDS ORDERED: MILK OF MAGNESIA 400 MG/5 ML 30 ML UDC PO PRN (18:45)
[2022-12-09 19:00] VITALS: BP 133/63
[2022-12-09] MEDS ORDERED: SCOPOLAMINE 1.5 MG PATCH TD NR (19:00)
[2022-12-09] MEDS: ENOXAPARIN 60 MG/0.6 ML SYRINGE SC SCH (19:39)
[2022-12-09] MEDS: POTASSIUM CL 10MEQ/50ML IVPB 50 ML IV SCH ×4 (19:39→22:50)
[2022-12-09] MEDS ORDERED: POTASSIUM CHLORIDE INJ 20 MEQ in NS IV 1000 ML 1,000 ML IV SCH (20:00)
[2022-12-09 20:24] VITALS: BP 137/85
[2022-12-09] MEDS: SENNOSIDES 8.6 MG TABLET PO SCH (20:50)
[2022-12-09] MEDS: DOCUSATE SODIUM 100 MG CAPSULE PO SCH (20:50)
[2022-12-09] MEDS: NS + KCL 20 MEQ/L 1000 ML 1,000 ML IV SCH (21:41)
[2022-12-09] MEDS: PROMETHAZINE INJ 25 MG/ML VIAL IM PRN (22:09)
[2022-12-09 23:29] VITALS: BP 131/63
[2022-12-10 03:04] VITALS: BP 145/85
[2022-12-10] MEDS: PROMETHAZINE INJ 25 MG/ML VIAL IM PRN (04:17)
[2022-12-10] MEDS: NS + KCL 20 MEQ/L 1000 ML 1,000 ML IV SCH ×4 (04:17→22:52)
[2022-12-10 04:36] LABS: BASOPHILS % (AUTO) 0 % (0-10); EOSINOPHILS % (AUTO) 0 % (0-10); HEMATOCRIT 30 % (35-52); HEMOGLOBIN 10.3 g/dL (11.5-16.0); LYMPHOCYTES # (AUTO) 1.2 10^3/uL (1.0-4.0); LYMPHOCYTES % (AUTO) 25 % (12-44); MEAN CORPUSCULAR HEMOGLOBIN 35 pg (25-34); MEAN CORPUSCULAR HGB CONC 35 g/dL (32-36); MEAN CORPUSCULAR VOLUME 102 fL (80-99); MEAN PLATELET VOLUME 9.6 fL (9.0-12.2); MONOCYTES # (AUTO) 0.8 10^3/uL (0.0-1.0); MONOCYTES % (AUTO) 16 % (0-12); NEUTROPHILS # (AUTO) 2.7 10^3/uL (1.8-7.8); NEUTROPHILS % (AUTO) 58 % (42-75); PLATELET COUNT 133 10^3/uL (130-400); WHITE BLOOD COUNT 4.7 10^3/uL (4.3-11.0)
[2022-12-10 05:06] LABS: ALBUMIN 3.4 GM/DL (3.2-4.5); BILIRUBIN,TOTAL 0.7 MG/DL (0.1-1.0); CALCIUM 8.3 MG/DL (8.5-10.1); CREATININE SERUM 1.17 MG/DL (0.60-1.30); POTASSIUM 3.2 MMOL/L (3.6-5.0); TOTAL PROTEIN 4.8 GM/DL (6.4-8.2)
[2022-12-10] MEDS: SENNOSIDES 8.6 MG TABLET PO SCH ×2 (07:34→19:32)
[2022-12-10] MEDS: DOCUSATE SODIUM 100 MG CAPSULE PO SCH ×2 (07:34→19:32)
[2022-12-10] MEDS: ENOXAPARIN 60 MG/0.6 ML SYRINGE SC SCH (08:16)
[2022-12-10 08:26] VITALS: BP 124/61
--- NOTE | 2022-12-10 10:39 | History & Physical-Hospitalist ---
KATIA TOLEDO 12/10/22 1039: History of Present Illness HPI/Chief Complaint CC: Nausea Vomiting Diarrhea HPI: 72 y/o female w/ PMH of multiple myeloma w/ stem cell transplant and gastroparesis presents for 2 days of N/V/D. She had the nausea and diarrhea s ronny 12/08, but the vomiting came about 12/09. She notes the diarrhea is watery, denying any blood or mucus. She also reports the vomiting as non-biliary and non-bloody. She notes having episodes of watery diarrhea in the past as well. She is currenty taking Revlimid for her MM. She takes 3 weeks on treatment followed by 1 week off treatment. She is on her 7th cycle. She denies any CVA tenderness or urinary symptoms. She denies dizziness or lightheaded. She does report bone pain today. For the gastroparesis, she takes reglan 1/2 hr before meals and at night. She also reports having a cough last week where she was seen in the hospital, and denies SOB or chest pain today. Source: patient Exam Limitations: no limitations Date Seen 12/10/22 Time Seen by a Provider: 09:30 Attending Physician Geneva Sigala Aprn PCP Admitting Physician: Renetta Hamm DO Attending Physician: Renetta Hamm DO Referring Physician Date of Admission Dec 09, 2022 at 18:41 Home Medications & Allergies Home Medications Reviewed patient Home Medication Reconciliation performed by pharmacy medication reconciliations computer field technician and/or nursing. Patients Allergies have been reviewed. Allergies Allergies Coded Allergies Sulfa (Sulfonamide Antibiotics) (Verified Allergy, Unknown, hives, 05/24/18) latex (Verified Allergy, Unknown, anaphylaxis, 05/24/18) midazolam (Verified Allergy, Unknown, pt has had xanax and ativan in past, 12/10/22) vancomycin (Verified Allergy, Unknown, hives, 05/24/18) Uncoded Allergies "SEEDS" ( Adverse Reaction, Unknown, 06/18/22) CAN NOT HAVE SEEDS D/T DIVERTICULITIS PER PT Past Ykitwsj-Omubjo-Zfymuz Hx Patient Social History Tobacco Use?: No Substance use?: No Alcohol Use?: No Immunizations Up To Date Date of Influenza Vaccine: Nov 29, 2018 First/Initial COVID19 Vaccinat: pt unable to recall which one Second COVID19 Vaccination Luis: pt unable to recall which one Tetanus Booster (TDap): Unknown Hepatitis A: No Hepatitis B: No Date of Pneumonia Vaccine: Sep 29, 2017 Seasonal Allergies Seasonal Allergies: No Current Status Communicates: Verbally Primary Language: Zambian Preferred Spoken Language: Zambian Past Medical History Surgeries: Appendectomy, Bowel Surgery, Gallbladder, Hysterectomy Hypertension Bladder Infection Blood Disorders: Yes Chronic Pain Multiple Myeloma Hypothyroidism GERD Family Medical History Cancer, Stroke Review of Systems Constitutional: No chills, No dizziness; weakness EENTM: no symptoms reported Respiratory: cough; No hemoptysis, No short of breath Cardiovascular: No chest pain, No palpitations Gastrointestinal: No abdominal pain; diarrhea Genitourinary: No decreased output Psychiatric/Neurological: Denies Headache Physical Exam Physical Exam Vital Signs Vital Signs - First Documented 12/09/22 12/09/22 17:18 19:00 Temp 37.0 Pulse 60 Resp 16 B/P (MAP) 137/85 (102) Pulse Ox 100 O2 Delivery Room Air Capillary Refill : Height, Weight, BMI Height: 5'1.00" Weight: 127lbs. oz. 57.269727pb; 22.75 BMI Method:Stated General Appearance: No Apparent Distress HEENT: PERRL/EOMI Neck: Full Range of Motion Respiratory: Chest Non Tender, Lungs Clear, Normal Breath Sounds, No Accessory Muscle Use Cardiovascular: Regular Rate, Rhythm Gastrointestinal: Non Tender, Soft Back: No CVA Tenderness Extremity: Normal Capillary Refill Neurologic/Psychiatric: Alert, Oriented x3, Normal Mood/Affect Skin: Normal Color Results Results/Procedures Labs Laboratory Tests 12/09/22 17:31 12/10/22 04:20 Patient resulted labs reviewed. Assessment/Plan Assessment and Plan Assessment: 72 y/o female with N/V/D Plan: N/V/D -continue promethazine, metoclopramide, scopolamine -restart home meds Dehydration -IV fluids -encourage oral intake -advance from liquid to regular diet Multiple Myeloma -Dr. Michael managing Hypokalemia -supplement RENETTA BUCKLEY DO 12/11/22 0513: History of Present Illness HPI/Chief Complaint Chief complaint nausea and vomiting with hypokalemia HPI: This is a 72-year-old female receiving chemotherapy for multiple myeloma who presents with nausea and vomiting and diarrhea with severe hypokalemia. Patient will need continued potassium supplementation IV. She is up walking around. Source: patient Exam Limitations: no limitations Past Zjsbfto-Jtezgi-Ptyudj Hx Patient Social History Marrital Status: single Employed/Student: retired Smoking Status: Never a Smoker Past Medical History Did You Recieve Any Treatments: Yes What Type of Treatment Did You: Chemotherapy mm Review of Systems Constitutional: see HPI, weakness Physical Exam Physical Exam General Appearance: No Apparent Distress, Chronically ill Respiratory: Lungs Clear, Normal Breath Sounds Cardiovascular: Regular Rate, Rhythm Neurologic/Psychiatric: Alert, Oriented x3 Assessment/Plan Admission Diagnosis Assessment: N/V/D Hypokalemia MM Plan: Monitor closely Admission Status: Observation Supervisory-Addendum Brief Verification & Attestation Participated in pt care: history, MDM, physical Personally performed: exam, history, MDM, supervision of care Care discussed with: Medical Student Procedures: n/a Results interpretation: Verified all documentation Verification and Attestation of Medical Student E/M Service A medical student performed and documented this service in my presence. I reviewed and verified all information documented by the medical student and made modifications to such information, when appropriate. I personally performed the physical exam and medical decision making. Renetta Hamm, Dec 11, 2022,05:13 KATIA TOLEDO Dec 10, 2022 10:39 RENETTA HAMM DO Dec 11, 2022 05:13
--- NOTE | 2022-12-10 10:39 | Physical Therapy Evaluation ---
PT Evaluation-General Medical Diagnosis Admission Date Dec 09, 2022 at 18:41 Medical Diagnosis: Nausea, Vomiting, Diarrhea Onset Date: Dec 09, 2022 Therapy Diagnosis Therapy Diagnosis: Gait deficit Height/Weight Height (Feet): 5 Height (Inches): 1.00 Weight (Pounds): 127 Precautions Precautions/Isolations: Fall Prevention, Standard Precautions Weight Bear Status Right Lower Extremity: Right Full Weight Bearing Left Lower Extremity: Left Full Weight Bearing Referral Physician: Dr. Walsh Reason for Referral: Evaluation/Treatment Social History Home: Single Level Current Living Status: Alone Entry Into Home: Stairs With Railing PT Steps Into Home: 2 Prior Prior Level of Function SCALE: Activities may be completed with or without assistive devices. 6-Ogykqycdlj-agoddkh completes the activity by him/herself with no assistance from a helper. 5-Set-up or Clean-up Assistance-helper sets up or cleans up; patient completes activity. [place] assists only prior to or following the activity. 4-Supervision or Touching Assistance-helper provides verbal cues and/or touching/steadying and/or contact guard assistance as patient completes activity. Assistance may be provided throughout the activity or intermittently. 3-Partial/Moderate Assistance-helper does LESS THAN HALF the effort. [place] lifts, holds or supports trunk or limbs, but provides less than half the effort. 2-Substantial/Maximal Assistance-helper does MORE THAN HALF the effort. [place] lifts or holds trunk or limbs and provides more than half the effort. 5-Uahgfzmpw-njthqc does ALL the effort. Patient does none of the effort to complete the activity. Or, the assistance of 2 or more helpers is required for the patient to complete the activity. If activity was not attempted, code reason: 7-Patient Refused. 9-Not Applicable-not attempted and the patient did not perform the activity before the current illness, exacerbation or injury. 10-Not Attempted due to Environmental Limitations-(lack of equipment, weather restraints, etc.). 88-Not Attempted due to Medical Conditions or Safety Concerns. Bed Mobility: 6 Transfers (B,C,W/C): 6 Gait: 6 Stairs: 6 Indoor Mobility (Ambulation): Independent Stairs: Independent Prior Devices Use: Walker PT Evaluation-Current Subjective Patient sitting up in bed upon PT arrival, agreeable to treatment. Patient rates pain at 0/10 currently. Objective Patient Orientation: Person, Place, Time, Situation Attachments: IV ROM/Strength ROM Lower Extremities WFLs BLEs all planes. Strength Lower Extremities 5/5 BLEs all planes Sensory Vision: Functional Hearing: Functional Sensation Right Lower Extremit: Intact Sensation Left Lower Extremity: Intact Transfers Roll Left to Right (QC): 6 Sit to Lying (QC): 6 Lying to Sitting/Side of Bed(Q: 6 Sit to Stand (QC): 6 Chair/Air-xz-Zcteq Xfer(QC): 6 Gait Does the Patient Walk?: Yes Mode of Locomotion: Walk Anticipated Mode of Locomotion: Walk Walk 10 feet (QC): 6 Walk 50 ft with 2 Turns(QC): 6 Walk 150 ft (QC): 6 Distance: 300' Gait Assistive Device: None Comments/Gait Description Patient pushes the IV without assistance but does not appear to use it for s upport. Balance Sitting Static: Normal Sitting Dynamic: Normal Standing Static: Normal Standing Dynamic: Normal Assessment/Needs Patient at baseline, no further PT needed at this time. Rehab Potential: Good PT Plan Treatment/Plan Treatment Plan: Discontinue PT Treatment Plan: Other Treatment Duration: Dec 11, 2022 Frequency: Time Time In: 1012 Time Out: 1025 DATE: Dec 10, 2022 Total Billed Treatment Time: 13 Total Billed Treatment Visit, TRAM RHODES PT Dec 10, 2022 10:39
[2022-12-10] MEDS ORDERED: SENNOSIDES 8.6 MG TABLET PO PRN (11:45)
[2022-12-10] MEDS ORDERED: ZOLPIDEM 5 MG (AMBIEN) TAB PO PRN (11:45)
[2022-12-10] MEDS ORDERED: morphine IMMEDIATE RELEASE 15 MG TABLET PO PRN (11:45)
[2022-12-10] MEDS ORDERED: TEMAZEPAM 15 MG (RESTORIL) CAP PO PRN (11:45)
[2022-12-10] MEDS ORDERED: BISACODYL 5 MG TABLET PO PRN (11:45)
[2022-12-10] MEDS ORDERED: NON-FORMULARY MEDICATION 1 EA EA (Ondansetron (Ondansetron Odt) 8 MG) PO PRN (11:45)
[2022-12-10] MEDS ORDERED: ALPRAZolam 0.25 MG TABLET PO PRN (11:45)
[2022-12-10 11:51] VITALS: BP 125/58
[2022-12-10] MEDS ORDERED: DOCUSATE SODIUM 100 MG CAPSULE PO PRN (12:00)
[2022-12-10] MEDS ORDERED: MELATONIN 10 MG TABLET PO PRN (12:15)
[2022-12-10] MEDS: POTASSIUM CL 10MEQ/50ML IVPB 50 ML IV SCH ×8 (12:28→20:49)
[2022-12-10 16:22] VITALS: BP 147/67
[2022-12-10 20:08] VITALS: BP 127/77
[2022-12-10] MEDS: MORPHINE 30 MG PO SCH (20:56)
[2022-12-10] MEDS: VITAMIN D PO SCH (20:57)
[2022-12-10] MEDS: CALCIUM CARBONATE 400 MG PO SCH (20:57)
[2022-12-10] MEDS: ACYCLOVIR 400 MG CAPSULE/TABLET PO SCH (20:57)
[2022-12-10] MEDS: APIXABAN 5 MG TABLET PO SCH (20:57)
[2022-12-10] MEDS ORDERED: GABAPENTIN 600 MG TABLET PO SCH (21:00)
[2022-12-10] MEDS ORDERED: POTASSIUM CHLORIDE 10 MEQ TABLET PO SCH (21:00)
[2022-12-10 23:39] VITALS: BP 133/61
[2022-12-11 03:30] VITALS: BP 116/58
[2022-12-11 05:16] LABS: BASOPHILS % (AUTO) 1 % (0-10); MEAN CORPUSCULAR VOLUME 106 fL (80-99); MEAN PLATELET VOLUME 10.3 fL (9.0-12.2); WHITE BLOOD COUNT 2.4 10^3/uL (4.3-11.0)
[2022-12-11 05:18] LABS: EOSINOPHILS # (AUTO) 0.2 10^3/uL (0.0-0.3); EOSINOPHILS % (AUTO) 7 % (0-10); HEMATOCRIT 27 % (35-52); HEMOGLOBIN 9.2 g/dL (11.5-16.0); LYMPHOCYTES # (AUTO) 0.9 10^3/uL (1.0-4.0); LYMPHOCYTES % (AUTO) 37 % (12-44); MEAN CORPUSCULAR HEMOGLOBIN 36 pg (25-34); MEAN CORPUSCULAR HGB CONC 34 g/dL (32-36); MONOCYTES # (AUTO) 0.3 10^3/uL (0.0-1.0); MONOCYTES % (AUTO) 13 % (0-12); NEUTROPHILS % (AUTO) 43 % (42-75); PLATELET COUNT 111 10^3/uL (130-400)
[2022-12-11 05:31] LABS: ALBUMIN 2.9 GM/DL (3.2-4.5); POTASSIUM 4.7 MMOL/L (3.6-5.0)
[2022-12-11 05:33] LABS: CALCIUM 7.9 MG/DL (8.5-10.1)
[2022-12-11 05:34] LABS: TOTAL PROTEIN 4.2 GM/DL (6.4-8.2)
[2022-12-11 05:35] LABS: BILIRUBIN,TOTAL 0.6 MG/DL (0.1-1.0)
[2022-12-11 05:37] LABS: CREATININE SERUM 1.12 MG/DL (0.60-1.30)
[2022-12-11] MEDS: NS + KCL 20 MEQ/L 1000 ML 1,000 ML IV SCH (07:26)
[2022-12-11 07:38] VITALS: BP 108/67
[2022-12-11] MEDS ORDERED: METOCLOPRAMIDE INJ 10 MG/2 ML IVP PRN (08:15)
[2022-12-11] MEDS ORDERED: ROSUVASTATIN 10 MG TABLET PO SCH (09:00)
[2022-12-11] MEDS ORDERED: POTASSIUM CHLORIDE 10 MEQ TABLET PO SCH (09:00)
[2022-12-11] MEDS ORDERED: PANTOPRAZOLE 40 MG TABLET PO SCH (09:00)
[2022-12-11] MEDS ORDERED: ARMOUR THYROID 15 MG PO SCH (09:00)
[2022-12-11] MEDS: MORPHINE 30 MG PO SCH (09:06)
[2022-12-11] MEDS: APIXABAN 5 MG TABLET PO SCH (09:08)
[2022-12-11] MEDS: ACYCLOVIR 400 MG CAPSULE/TABLET PO SCH (09:08)
[2022-12-11] MEDS: VITAMIN D PO SCH (09:10)
[2022-12-11] MEDS: CALCIUM CARBONATE 400 MG PO SCH (09:10)
[2022-12-11] MEDS: DOCUSATE SODIUM 100 MG CAPSULE PO SCH (09:10)
[2022-12-11] MEDS: SENNOSIDES 8.6 MG TABLET PO SCH (09:13)
[2022-12-11] MEDS ORDERED: APIX5TAB PO (11:26)
--- NOTE | 2022-12-11 12:10 | Discharge Summary ---
KATIA TOLEDO 12/11/22 1210: Diagnosis/Chief Complaint Date of Admission Dec 09, 2022 at 18:41 Date of Discharge Discharge Date: Dec 11, 2022 Admission Diagnosis Assessment: N/V/D Hypokalemia [facility] Discharge Diagnosis N/V/D Hypokalemia Discharge Summary Procedures/Consulations Chest XR was obtained 12/09/22 in ER. Unremarkable Discharge Physical Exam Allergies: Coded Allergies: Sulfa (Sulfonamide Antibiotics) (Verified Allergy, Unknown, hives, 05/24/18) latex (Verified Allergy, Unknown, anaphylaxis, 05/24/18) midazolam (Verified Allergy, Unknown, pt has had xanax and ativan in past, 12/10/22) vancomycin (Verified Allergy, Unknown, hives, 05/24/18) Uncoded Allergies: "SEEDS" (Adverse Reaction, Unknown, 06/18/22) CAN NOT HAVE SEEDS D/T DIVERTICULITIS PER PT Vitals & I&Os Vital Signs Date Time Temp Pulse Resp B/P (MAP) Pulse Ox O2 Delivery O2 Flow Rate FiO2 12/11/22 08:30 Room Air 12/11/22 08:22 98 0.00 12/11/22 07:38 36.4 63 18 108/67 (81) General Appearance: No Apparent Distress, WD/WN HEENT: PERRL/EOMI Respiratory: Chest Non Tender, Lungs Clear, Normal Breath Sounds, No Accessory Muscle Use Cardiovascular: Regular Rate, Rhythm, No Murmur Gastrointestinal: Normal Bowel Sounds, Non Tender, Soft Extremity: Normal Capillary Refill, Normal Range of Motion Skin: Normal Color Neurologic/Psychiatric: Alert, Oriented x3, No Motor/Sensory Deficits, Normal Mood/Affect Hospital Course Was the Problem List Reviewed?: Yes Ms. Tonya Whitfield is a 72 y/o female w/ PMH of multiple myeloma w/ stem cell transplant and gastroparesis presents for 2 days of N/V/D. She presented to the ED 12/09/22 and she had the nausea and diarrhea since 12/08, but the vomiting came about 12/09. She notes the diarrhea is watery, denying any blood or mucus. She also reports the vomiting as non-biliary and non-bloody. She notes having episodes of watery diarrhea in the past as well. She is currenty taking Revlimid for her MM. She takes 3 weeks on treatment followed by 1 week off treatment. She is on her 7th cycle. She denies any CVA tenderness or urinary symptoms. Chest XR and UA on 12/09 were unremarkable. She denies dizziness or lightheaded. She denies bone pain today, compared to yesterday. She has been given antiemetics and IV potassium to correct her labs. She has advanced her diet to solid foods, and had oatmeal this morning which she was able to keep down. She deneis having a cough today. She will be started on her home meds and discharged today. Labs (last 24 hrs) Laboratory Tests 12/11/22 05:04: White Blood Count 2.4L, Red Blood Count 2.55L, Hemoglobin 9.2L, Hematocrit 27L, Mean Corpuscular Volume 106H, Mean Corpuscular Hemoglobin 36H, Mean Corpuscular Hemoglobin Concent 34, Red Cell Distribution Width 12.7, Platelet Count 111L, Mean Platelet Volume 10.3, Immature Granulocyte % (Auto) 0, Neutrophils (%) (Auto) 43, Lymphocytes (%) (Auto) 37, Monocytes (%) (Auto) 13H, Eosinophils (%) (Auto) 7, Basophils (%) (Auto) 1, Neutrophils # (Auto) 1.0L, Lymphocytes # (Auto) 0.9L, Monocytes # (Auto) 0.3, Eosinophils # (Auto) 0.2, Basophils # (Auto) 0.0, Immature Granulocyte # (Auto) 0.0, Percent Immature Platelet Fraction 2.0, Sodium Level 139, Potassium Level 4.7, Chloride Level 120H, Carbon Dioxide Level 15L, Anion Gap 4L, Blood Urea Nitrogen 8, Creatinine 1.12, Estimat Glomerular Filtration Rate 53, BUN/Creatinine Ratio 7, Glucose Level 71, Calcium Level 7.9L, Corrected Calcium 8.8, Total Bilirubin 0.6, Aspartate Amino Transf (AST/SGOT) 12, Alanine Aminotransferase (ALT/SGPT) 8, Alkaline Phosphatase 65, Total Protein 4.2L, Albumin 2.9L Patient resulted labs reviewed. Pending Labs Laboratory Tests 12/11/22 05:04: White Blood Count 2.4, Red Blood Count 2.55, Hemoglobin 9.2, Hematocrit 27, Mean Corpuscular Volume 106, Mean Corpuscular Hemoglobin 36, Mean Corpuscular Hemoglobin Concent 34, Red Cell Distribution Width 12.7, Platelet Count 111, Mean Platelet Volume 10.3, Immature Granulocyte % (Auto) 0, Neutrophils (%) (Auto) 43, Lymphocytes (%) (Auto) 37, Monocytes (%) (Auto) 13, Eosinophils (%) (Auto) 7, Basophils (%) (Auto) 1, Neutrophils # (Auto) 1.0, Lymphocytes # (Auto) 0.9, Monocytes # (Auto) 0.3, Eosinophils # (Auto) 0.2, Basophils # (Auto) 0.0, Immature Granulocyte # (Auto) 0.0, Percent Immature Platelet Fraction 2.0, Sodium Level 139, Potassium Level 4.7, Chloride Level 120, Carbon Dioxide Level 15, Anion Gap 4, Blood Urea Nitrogen 8, Creatinine 1.12, Estimat Glomerular Filtration Rate 53, BUN/Creatinine Ratio 7, Glucose Level 71, Calcium Level 7.9, Corrected Calcium 8.8, Total Bilirubin 0.6, Aspartate Amino Transf (AST/SGOT) 12, Alanine Aminotransferase (ALT/SGPT) 8, Alkaline Phosphatase 65, Total Protein 4.2, Albumin 2.9 Discharge Home Medications: Active Scripts Active Eliquis (Apixaban) 5 Mg Tablet 5 Mg PO BID 30 Days Reported Darzalex (Daratumumab) 400 Mg/20 Ml (20 Mg/Ml) Vial 1,800 Mg IJ EVERY 28 DAYS Melatonin 5 Mg Tablet 5 Mg PO HS PRN Docusate Sodium 100 Mg Tablet 100 Mg PO BID PRN Dulcolax (Bisacodyl) 5 Mg Tablet.dr 5 Mg PO BID PRN Vegetable Laxative (Sennosides) 8.6 Mg Tablet 8.6 Mg PO BID PRN Alendronate Sodium 70 Mg Tablet 70 Mg PO [facility] Thyroid (Thyroid,Pork) 15 Mg Tablet 15 Mg PO DAILY Gabapentin 600 Mg Tablet 600 Mg PO HS Calcium + D3 ER Tablet (Calcium Carb & Citrate/Vit D3) 600MG-12.5 Tablet.er 2 Each PO BID ALPRAZolam 0.25 Mg Tablet 0.25 Mg PO TID PRN Ambien (Zolpidem Tartrate) 5 Mg Tablet 5 Mg PO HS PRN 2ND LINE Rosuvastatin Calcium 10 Mg Tablet 10 Mg PO DAILY K-Tab ER (Potassium Chloride) 10 Meq Tablet.er 10 Meq PO HS K-Tab ER (Potassium Chloride) 10 Meq Tablet.er 20 Meq PO DAILY TAKES 2 (10MEQ) TABS Morphine Sulfate ER (Morphine Sulfate) 30 Mg Tablet.er 30 Mg PO Q12H Transderm-Scop (Scopolamine) 1 Mg/3 Day Patch.td72 1 Patch TD EVERY 72 HOURS Ondansetron Odt (Ondansetron) 8 Mg Tab.rapdis 8 Mg PO TID PRN Temazepam 15 Mg Capsule 15 Mg PO HS PRN 1ST LINE Morphine Sulfate IR Tablet (Morphine Sulfate) 15 Mg Tablet 15 Mg PO DAILY PRN Pantoprazole Sodium 40 Mg Tablet.dr 40 Mg PO DAILY Acyclovir 400 Mg Tablet 400 Mg PO BID K-Phos Original (Potassium Phosphate,Monobasic) 500 Mg Tablet.abla 1,000 Mg PO BID TAKES 2 (500MG) TABS Instructions to patient/family Please see electronic discharge instructions given to patient. RENETTA HAMM DO 12/11/222050: Discharge Summary Discharge Physical Exam Allergies: Coded Allergies: Sulfa (Sulfonamide Antibiotics) (Verified Allergy, Unknown, hives, 05/24/18) latex (Verified Allergy, Unknown, anaphylaxis, 05/24/18) midazolam (Verified Allergy, Unknown, pt has had xanax and ativan in past, 12/10/22) vancomycin (Verified Allergy, Unknown, hives, 05/24/18) Uncoded Allergies: "SEEDS" (Adverse Reaction, Unknown, 06/18/22) CAN NOT HAVE SEEDS D/T DIVERTICULITIS PER PT Hospital Course Was the Problem List Reviewed?: Yes Discussion & Recommendations Discharge Planning: <30 minutes discharge planning Supervisory-Addendum Brief Verification & Attestation Participated in pt care: history, MDM, physical Personally performed: exam, history, MDM, supervision of care Care discussed with: Medical Student Procedures: n/a Results interpretation: Verified all documentation Verification and Attestation of Medical Student E/M Service A medical student performed and documented this service in my presence. I reviewed and verified all information documented by the medical student and made modifications to such information, when appropriate. I personally performed the physical exam and medical decision making. Renetta Hamm Dec 11, 2022,20:51 KATIA TOLEDO Dec 11, 2022 12:10 RENETTA HAMM DO Dec 11, 2022 20:51
[2022-12-11 12:25] VITALS: BP 108/67
[2022-12-12] MEDS ORDERED: SCOPOLAMINE PATCH REMOVAL TP SCH (18:59)
[2022-12-12] MEDS ORDERED: SCOPOLAMINE 1.5 MG PATCH TD SCH (19:00)
== END 2022-12-11 11:27 | disposition home or self-care (01) ==
LOC: EDUNIT# 17:02 → ER 17:04 → UNDOADMOB 18:41 → 4TH 18:41 → UNDODISOB 12-11 11:27
PROVIDERS: ADMIT Internal Medicine; ATTEND Internal Medicine
DX: R11.2 Nausea with vomiting, unspecified (principal); E87.6 Hypokalemia; C90.00 Multiple myeloma not having achieved remission; Z94.84 Stem cells transplant status; E86.0 Dehydration
CPT/HCPCS: 71045; 80053 ×3; 81000; 83690; 83735; 85025 ×3; 87015; 87045; 87046; 87077; 87899; 94760 ×2; 96361; 96366 ×2; 96372 ×2; 96374; 96376 ×2; 97161; 99283; G0378; 36415

== ENCOUNTER 2022-12-28 05:12 | Inpatient (IN) | payer MEDICARE, OTHER ==
[~2022-12-28] VITALS: Ht 154.9 cm; Wt 51.7 kg
[2022-12-28] VITALS (12 sets, daily range): BP systolic 102–177; BP diastolic 67–105
--- NOTE | 2022-12-28 05:19 | ED Fall/Injury ---
General Chief Complaint: Hip/Pelvic Problems Stated Complaint: FALL,HIP PX Source: patient, EMS Exam Limitations: no limitations (NATHALIE GO DO) History of Present Illness Date Seen by Provider: Dec 28, 2022 Time Seen by Provider: 05:08 Initial Comments 72-year-old female presents emergency department today for left hip pain. She was getting up to use the restroom and left the water on, did not realize there was water on the floor and slipped. She complains of pain in her left hip. She did hit her head on the toilet but denies losing consciousness. She is on Eliqu is. She was given 10 mg of morphine IM during transport by [facility]. All other systems reviewed and negative except documented per HPI. Voice recognition software was used to help create this chart (NATHALIE GO DO) Allergies and Home Medications Allergies Coded Allergies: Sulfa (Sulfonamide Antibiotics) (Verified Allergy, Unknown, hives, 05/24/18) latex (Verified Allergy, Unknown, anaphylaxis, 05/24/18) midazolam (Verified Allergy, Unknown, pt has had xanax and ativan in past, 12/10/22) vancomycin (Verified Allergy, Unknown, hives, 05/24/18) Uncoded Allergies: "SEEDS" (Adverse Reaction, Unknown, 06/18/22) CAN NOT HAVE SEEDS D/T DIVERTICULITIS PER PT Patient Home Medication List Home Medication List Reviewed: Yes (NATHALIE GO DO) ALPRAZolam (ALPRAZolam) 0.25 Mg Tablet, 0.25 MG PO TID PRN for ANXIETY, (Repo rted) Entered as Reported by: BARTOLO HANNA on 06/16/22 1539 Acyclovir (Acyclovir) 400 Mg Tablet, 400 MG PO BID, (Reported) Entered as Reported by: MAI SEGOVIA on 05/24/18 0932 Alendronate Sodium (Alendronate Sodium) 70 Mg Tablet, 70 MG PO TUE, (Reported) Entered as Reported by: BARTOLO HANNA on 12/02/22 1521 Apixaban (Eliquis) 5 Mg Tablet, 5 MG PO BID Prescribed by: Shazia Portillo on 12/11/22 1126 Bisacodyl (Dulcolax) 5 Mg Tablet.dr, 5 MG PO BID PRN for CONSTIPATION-4TH LINE, (Reported) Entered as Reported by: BARTOLO HANNA on 12/02/22 152 Calcium Carb & Citrate/Vit D3 (Calcium + D3 ER Tablet) 600MG-12.5 Tablet.er, 2 EACH PO BID, (Reported) Entered as Reported by: BARTOLO HANNA on 12/02/22 152 Daratumumab (Darzalex) 400 Mg/20 Ml (20 Mg/Ml) Vial, 1,800 MG IJ EVERY 28 DAYS, (Reported) Entered as Reported by: BARTOLO HANNA on 12/02/22 152 Docusate Sodium (Docusate Sodium) 100 Mg Tablet, 100 MG PO BID PRN for CONSTIPATION-1ST LINE, (Reported) Entered as Reported by: BARTOLO HANNA on 12/02/22 152 Gabapentin (Gabapentin) 600 Mg Tablet, 600 MG PO HS, (Reported) Entered as Reported by: BARTOLO HANNA on 12/02/22 152 Melatonin (Melatonin) 5 Mg Tablet, 5 MG PO HS PRN for SLEEP, (Reported) Entered as Reported by: BARTOLO HANNA on 12/02/22 152 Morphine Sulfate (Morphine Sulfate IR Tablet) 15 Mg Tablet, 15 MG PO DAILY PRN for PAIN-SEVERE (8-10), (Reported) Entered as Reported by: ANA LUISA NOVA on 03/01/19 1043 Morphine Sulfate (Morphine Sulfate ER) 30 Mg Tablet.er, 30 MG PO Q12H, (Reported) Entered as Reported by: BARTOLO HANNA on 06/16/22 153 Ondansetron (Ondansetron Odt) 8 Mg Tab.rapdis, 8 MG PO TID PRN for NAUSEA/VOM ITING-1ST LINE, (Reported) Entered as Reported by: ANA LUISA NOVA on 03/01/19 1044 Pantoprazole Sodium (Pantoprazole Sodium) 40 Mg Tablet.dr, 40 MG PO DAILY, (Reported) Entered as Reported by: MAI SEGOVIA on 05/24/18 0932 Potassium Chloride (K-Tab ER) 10 Meq Tablet.er, 20 MEQ PO DAILY, (Reported) Entered as Reported by: BARTOLO HANNA on 06/16/22 1539 Potassium Chloride (K-Tab ER) 10 Meq Tablet.er, 10 MEQ PO HS, (Reported) Entered as Reported by: BARTOLO HANNA on 06/16/22 1539 Potassium Phosphate,Monobasic (K-Phos Original) 500 Mg Tablet.alba, 1,000 MG PO BID, (Reported) Entered as Reported by: MAI SEGOVIA on 05/24/18 0932 Rosuvastatin Calcium (Rosuvastatin Calcium) 10 Mg Tablet, 10 MG PO DAILY, (Reported) Entered as Reported by: BARTOLO HANNA on 06/16/22 1539 Scopolamine (Transderm-Scop) 1 Mg/3 Day Patch.td72, 1 PATCH TD EVERY 72 HOURS, (Reported) Entered as Reported by: BARTOLO HANNA on 06/16/22 153 Sennosides (Vegetable Laxative) 8.6 Mg Tablet, 8.6 MG PO BID PRN for CONSTIPATION-5TH LINE, (Reported) Entered as Reported by: BARTOLO HANNA on 12/02/22 1521 Temazepam (Temazepam) 15 Mg Capsule, 15 MG PO HS PRN for SLEEP, (Reported) Entered as Reported by: ANA LUISA NOVA on 03/01/19 1043 Thyroid,Pork ([place] Thyroid) 15 Mg Tablet, 15 MG PO DAILY, (Reported) Entered as Reported by: BARTOLO HANNA on 12/02/22 1521 Zolpidem Tartrate (Ambien) 5 Mg Tablet, 5 MG PO HS PRN for SLEEP, (Reported) Entered as Reported by: BARTOLO HANNA on 06/16/22 1539 Review of Systems Review of Systems Constitutional: see HPI (NATHALIE GO DO) Past Aofkdyh-Cwjeqh-Ubmsjj Hx Patient Social History Tobacco Use?: No Use of E-Cig and/or Vaping dev: No Substance use?: No Alcohol Use?: No (NATHALIE GO DO) Immunizations Up To Date First/Initial COVID19 Vaccinat: pt unable to recall which one Second COVID19 Vaccination Luis: pt unable to recall which one Third COVID19 Vaccination Date: pt unable to recall which one (NATHALIE GO DO) Seasonal Allergies Seasonal Allergies: No (NATHALIE GO DO) Past Medical History Surgery/Hospitalization HX: [place]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; High Cholesterol; HTN; Anxiety Surgeries: Yes (colon resection; stem cell transplant) Appendectomy, Bowel Surgery, Gallbladder, Hysterectomy Respiratory: No Cardiac: Yes Hypertension Neurological: No Genitourinary: Yes Bladder Infection Gastrointestinal: No Musculoskeletal: No Endocrine: No HEENT: No Cancer: Yes (blood cancer; light chain proteins, MULTIPLE MYELOMA) Did You Recieve Any Treatments: Yes What Type of Treatment Did You: Chemotherapy Psychosocial: No Integumentary: No Blood Disorders: Yes (NATHALIE GO DO) Family Medical History Cancer, Stroke (NATHALIE GO DO) Physical Exam Vital Signs Vital Signs - First Documented 12/28/22 05:13 Temp 36.8 Pulse 99 Resp 16 B/P (MAP) 137/76 (96) Pulse Ox 96 O2 Delivery Room Air (AINSLEY ROYAL MD) Vital Signs Capillary Refill : (NATHALIE GO DO) Height, Weight, BMI Height: 5'1.00" Weight: 127lbs. oz. 57.537502iw; 22.75 BMI Method:Stated General Appearance: WD/WN Neck: full range of motion, normal inspection Cardiovascular: regular rate, rhythm, no murmur Respiratory: chest non-tender, lungs clear, normal breath sounds, no respiratory distress, no accessory muscle use Gastrointestinal: normal bowel sounds, non tender, soft Back: normal inspection, no vertebral tenderness Extremities: normal capillary refill, other (Tenderness palpation left lateral hip. No obvious deformity. 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, no motor/sensory deficits, alert, normal mood/affect, oriented x 3 Skin: normal color, warm/dry (NATHALIE GO DO) Progress/Results/Core Measures Results/Orders Lab Results Laboratory Tests Test 12/28/22 06:20 Range/Units White Blood Count 8.2 4.3-11.0 10^3/uL Red Blood Count 2.67 L 3.80-5.11 10^6/uL Hemoglobin 9.7 L 11.5-16.0 g/dL Hematocrit 30 L 35-52 % Mean Corpuscular Volume 111 H 80-99 fL Mean Corpuscular Hemoglobin 36 H 25-34 pg Mean Corpuscular Hemoglobin Concent 33 32-36 g/dL Red Cell Distribution Width 13.7 10.0-14.5 % Platelet Count 88 L 130-400 10^3/uL Mean Platelet Volume 9.6 9.0-12.2 fL Immature Granulocyte % (Auto) 1 % Neutrophils (%) (Auto) 82 H 42-75 % Lymphocytes (%) (Auto) 9 L 12-44 % Monocytes (%) (Auto) 7 0-12 % Eosinophils (%) (Auto) 1 0-10 % Basophils (%) (Auto) 0 0-10 % Neutrophils # (Auto) 6.8 1.8-7.8 10^3/uL Lymphocytes # (Auto) 0.7 L 1.0-4.0 10^3/uL Monocytes # (Auto) 0.6 0.0-1.0 10^3/uL Eosinophils # (Auto) 0.1 0.0-0.3 10^3/uL Basophils # (Auto) 0.0 0.0-0.1 10^3/uL Immature Granulocyte # (Auto) 0.1 0.0-0.1 10^3/uL Sodium Level 137 135-145 MMOL/L Potassium Level 3.6 3.6-5.0 MMOL/L Chloride Level 106 98-107 MMOL/L Carbon Dioxide Level 24 21-32 MMOL/L Anion Gap 7 5-14 MMOL/L Blood Urea Nitrogen 16 7-18 MG/DL Creatinine 1.36 H 0.60-1.30 MG/DL Estimat Glomerular Filtration Rate 42 BUN/Creatinine Ratio 12 Glucose Level 138 H 70-105 MG/DL Calcium Level 8.3 L 8.5-10.1 MG/DL Corrected Calcium 8.9 8.5-10.1 MG/DL Total Bilirubin 0.5 0.1-1.0 MG/DL Aspartate Amino Transf (AST/SGOT) 19 5-34 U/L Alanine Aminotransferase (ALT/SGPT) 13 0-55 U/L Alkaline Phosphatase 77 40-136 U/L Total Protein 5.1 L 6.4-8.2 GM/DL Albumin 3.3 3.2-4.5 GM/DL Smear Scan YES (AINSLEY ROYAL MD) My Orders Orders - AINSLEY ROYAL MD Chest 1 View, Ap/Pa Only (12/28/22 06:03) Cbc And Automated Diff (12/28/22 06:03) Comprehensive Metabolic Panel (12/28/22 06:03) Ed Iv/Invasive Line Start (12/28/22 06:03) Ekg Tracing (12/28/22 06:12) Ed Admission (Communication) (12/28/22 07:10) Code/Resuscitation (12/28/22 07:10) Morphine Injection (Morphine Injection (12/28/22 07:10) (AINSLEY ROYAL MD) Medications Given in ED Current Medications Medications Dose Ordered Sig/Eligio Route Start Time Stop Time Status Last Admin Dose Admin Cefazolin Sodium 2000 mg/Sodium Chloride 50 ml @ 100 mls/hr ONCE ONCE IV 12/28/22 07:30 12/28/22 07:59 DC 12/28/22 07:51 100 MLS/HR Lactated Ringer's 1,000 ml @ 0 mls/hr Q0M PRN IV 12/28/22 07:45 12/28/22 07:51 0 MLS/HR (AINSLEY ROYAL MD) Vital Signs/I&O 12/28/22 05:13 Temp 36.8 Pulse 99 Resp 16 B/P (MAP) 137/76 (96) Pulse Ox 96 O2 Delivery Room Air (AINSLEY ROYAL MD) Progress Progress Note : Progress Note 0608: I have assumed care of the patient from Dr. Go pending CT head, pelvis as well as x-rays of the pelvis. Differential diagnosis includes intracranial hemorrhage, left hip fracture, pelvic fracture, contusion. I have reviewed CT of the head and do not find any obvious intracranial hemorrhage on my interpretation so CT of the pelvis was ordered.. I did review pelvic x-ray with Dr. Norman lees and there was a question of fracture although not completely evaluated on the pelvic x-ray on my interpretation. I have reviewed the CT of the pelvis and there is fracture of the hip intertrochanteric on the left. We will go ahead and access her port and get labs including CBC and CMP as well as a portable chest x-ray for clearance. I will get EKG as well. Patient will require admission. 0635: Chest x-ray reviewed by me shows no obvious infiltrate on my interpretation. EKG completed and reviewed below. Pending labs and then we will call admitting team. 0654: Labs reviewed and CMP shows slight elevation of serum creatinine at 1.36 but otherwise grossly normal electrolytes and LFTs. CBC shows normal white count with hemoglobin of 9.7 and platelets of 88. I will call admitting team. 0717: I have spoken with Dr. Manning who accepts patient in consult and will consider surgery today or tomorrow depending on optimization of the patient. He has requested that she remain n.p.o. currently. I have spoken with board certified family physician on-call for [facility] and they have accepted the patient for admission, observation status. She will do electronic orders. Discussed all of this with the patient who agrees to admission. She is full code. She chronically takes morphine 30 mg p.o. twice daily and has not had that this morning so we will go ahead and give morphine 10 mg IV given her n.p.o. status now. Admit, observation status, patient agrees to plan. (AINSLEY ROYAL MD) Initial ECG Impression Date: Dec 28, 2022 Initial ECG Impression Time: 06:28 Initial ECG Rate: 94 Initial ECG Rhythm: Normal Sinus Comment Sinus rhythm with normal axis. No evidence of ST elevation DC. Interpreted by me. (AINSLEY ROYAL MD) Diagnostic Imaging Diagonstic Imaging: CT Plain Films/CT/US/NM/MRI: head Comments [facility] [place], [place] NAME: RHIANNON MORSE [facility] REC#: [id number] PT STATUS: REG ER : 1950 PHYSICIAN: NATHALIE GO DO ADMIT DATE: 12/28/22/ER Draft Date of Exam:12/28/22 CT HEAD WO INDICATION: L hip pain after fall traumatic injury to head. Now with head pain. Anticoagulated patient. TECHNIQUE: Routine non contrast-enhanced axial images were obtained from the skull base to the vertex. Auto Exposure Controls were utilized during the CT exam to meet ALARA standards for radiation dose reduction COMPARISON: None. FINDINGS: The ventricles and cortical sulci are age-appropriate. There is no midline shift or mass-effect. No acute intra-axial hemorrhage is seen. There are no abnormal areas of increased or decreased density to suggest acute hemorrhage or edema. No extra-axial masses or collections are present. The bony calvarium is intact. The visualized paranasal sinuses are unremarkable. The mastoid air cells are clear. IMPRESSION: 1. No acute intracranial abnormality. No CT evidence of mass, acute infarct or intracranial hemorrhage. Dictated on workstation # [id number] Dict: 12/28/22611 Trans: 12/28/22613 [id number] Interpreted by: FE BARRIGA MD Electronically signed by: Diagonstic Imaging: CT Plain Films/CT/US/NM/MRI: pelvis Comments [facility], [place] NAME: RHIANNON MORSE [facility] REC#: [id number] PT STATUS: REG ER : 1950 PHYSICIAN: NATHALIE GO DO ADMIT DATE: 12/28/22/ER Draft Date of Exam:12/28/22 CT PELVIS WO PROCEDURE: CT pelvis without contrast. TECHNIQUE: Multiple contiguous axial images were obtained through the pelvis without the use of intravenous contrast. Sagittal and coronal reformations were performed. Auto Exposure Controls were utilized during the CT exam to meet ALARA standards for radiation dose reduction. INDICATION: Left hip pain status post fall. COMPARISON: 12/01/2022 FINDINGS: There is acute intertrochanteric fracture of the proximal left femur. There is no significant displacement of fracture fragments. Femoral acetabular joint space remains intact. Osseous pelvis is intact. SI joints are symmetric. There is no diastases of the pubic symphysis. Included portions right femur are intact as well. Right femoroacetabular joint space is also maintained. Soft tissue structures are unremarkable. Urinary bladder is unopacified. No calculi are seen within urinary bladder. IMPRESSION: 1. Acute fracture of the proximal left femur as above. Dictated on workstation # [id number] Dict: 12/28/22607 Trans: 12/28/22611 [id number] Interpreted by: FE BARRIGA MD Electronically signed by: Diagonstic Imaging: Xray Plain Films/CT/US/NM/MRI: pelvis, hip Comments [facility] [place] [place] NAME: RHIANNON MORSE [facility] REC#: [id number] PT STATUS: REG ER : 1950 PHYSICIAN: NATHALIE GO DO ADMIT DATE: 12/28/22/ER Draft Date of Exam:12/28/22 PELVIS WITH LEFT HIP 2-3 VIEWS INDICATION: Fall. Left hip pain. COMPARISON: CT from same day FINDINGS: Frontal radiograph view of the pelvis and 2 dedicated radiograph views of the left hip were obtained and show acute intertrochanteric fracture of the proximal left femur. There is no significant displacement of fracture fragments. Femoral acetabular joint space is maintained. Remainder of the osseous pelvis is intact. No unexpected radiopaque foreign bodies are identified. IMPRESSION: 1. Acute fracture of the proximal left femur as above. Dictated on workstation # [id number] Dict: 12/28/22612 Trans: 12/28/22614 SA [id number] Interpreted by: FE BARRIGA MD Electronically signed by: Diagonstic Imaging: Xray Plain Films/CT/US/NM/MRI: chest Comments [facility], [place] NAME: RHIANNON MORSE [facility] REC#: [id number] PT STATUS: REG ER : 1950 PHYSICIAN: AINSLEY ROYAL MD ADMIT DATE: 12/28/22/ER Draft Date of Exam:12/28/22 CHEST 1 VIEW, AP/PA ONLY INDICATION: medical clearance hip fracture. Preoperative evaluation. COMPARISON: 12/09/2022 FINDINGS: Single frontal view of the chest demonstrates normal heart size and pulmonary vascularity. The lungs are well aerated and clear. No large pleural effusion or pneumothorax is seen. The visualized osseous structures show no acute abnormalities. Right-sided subclavian Port-A-Cath is present with tip in the low SVC. IMPRESSION: 1. No acute cardiopulmonary process. Dictated on workstation # [id number] Dict: 12/28/22645 Trans: 12/28/22651 CVB [id number] Interpreted by: FE BARRIGA MD Electronically signed by: (AINSLEY ROYAL MD) Departure Communication (Admissions) Patient is hemodynamically stable, neurovascular motor and sensory intact. Her main complaint is left hip pain. She did hit her head and is on Eliquis we will go ahead and CT her head as well. 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 We will go ahead and get a CT scan of her hip which is pending at this time. Care handed to Dr Royal at [facility]. (NATHALIE GO DO) Time/Spoke to Admitting Phy: 07:10 Time/Spoke to Consulting Phy: 07:00 (AINSLEY ROYAL MD) Impression Primary Impression: Closed left hip fracture Qualified Codes: S72.002A - Fracture of unspecified part of neck of left femur, initial encounter for closed fracture Additional Impression: Closed head injury Qualified Codes: S09.90XA - Unspecified injury of head, initial encounter Disposition: ADMITTED INPATIENT Condition: Stable Admissions Decision to Admit Reason: Admit from ER (Trauma) Decision to Admit/Date: Dec 28, 2022 Time/Decision to Admit Time: 07:00 (AINSLEY ROYAL MD) Departure-Patient Inst. Referrals: ANA LUISA BARRAGAN APRN (PCP) Primary Care Physician [facility] (Family) Primary Care Physician NATHALIE GO DO Dec 28, 2022 05:19 AINSLEY ROYAL MD Dec 28, 2022 06:11
--- NOTE | 2022-12-28 06:13 | Diagnostic Imaging Report ---
PROCEDURE: CT pelvis without contrast. TECHNIQUE: Multiple contiguous axial images were obtained through the pelvis without the use of intravenous contrast. Sagittal and coronal reformations were performed. Auto Exposure Controls were utilized during the CT exam to meet ALARA standards for radiation dose reduction. INDICATION: Left hip pain status post fall. COMPARISON: 12/01/2022 FINDINGS: There is acute intertrochanteric fracture of the proximal left femur. There is no significant displacement of fracture fragments. Femoral acetabular joint space remains intact. Osseous pelvis is intact. SI joints are symmetric. There is no diastases of the pubic symphysis. Included portions right femur are intact as well. Right femoroacetabular joint space is also maintained. Soft tissue structures are unremarkable. Urinary bladder is unopacified. No calculi are seen within urinary bladder. IMPRESSION: 1. Acute fracture of the proximal left femur as above. Dictated by: Dictated on workstation # [id number]
--- NOTE | 2022-12-28 06:15 | Diagnostic Imaging Report ---
INDICATION: L hip pain after fall traumatic injury to head. Now with head pain. Anticoagulated patient. TECHNIQUE: Routine non contrast-enhanced axial images were obtained from the skull base to the vertex. Auto Exposure Controls were utilized during the CT exam to meet ALARA standards for radiation dose reduction COMPARISON: None. FINDINGS: The ventricles and cortical sulci are age-appropriate. There is no midline shift or mass-effect. No acute intra-axial hemorrhage is seen. There are no abnormal areas of increased or decreased density to suggest acute hemorrhage or edema. No extra-axial masses or collections are present. The bony calvarium is intact. The visualized paranasal sinuses are unremarkable. The mastoid air cells are clear. IMPRESSION: 1. No acute intracranial abnormality. No CT evidence of mass, acute infarct or intracranial hemorrhage. Dictated by: Dictated on workstation # [id number]
--- NOTE | 2022-12-28 06:16 | Diagnostic Imaging Report ---
INDICATION: Fall. Left hip pain. COMPARISON: CT from same day FINDINGS: Frontal radiograph view of the pelvis and 2 dedicated radiograph views of the left hip were obtained and show acute intertrochanteric fracture of the proximal left femur. There is no significant displacement of fracture fragments. Femoral acetabular joint space is maintained. Remainder of the osseous pelvis is intact. No unexpected radiopaque foreign bodies are identified. IMPRESSION: 1. Acute fracture of the proximal left femur as above. Dictated by: Dictated on workstation # [id number]
[2022-12-28 06:29] LABS: BASOPHILS % (AUTO) 0 % (0-10); EOSINOPHILS # (AUTO) 0.1 10^3/uL (0.0-0.3); EOSINOPHILS % (AUTO) 1 % (0-10); HEMATOCRIT 30 % (35-52); HEMOGLOBIN 9.7 g/dL (11.5-16.0); LYMPHOCYTES # (AUTO) 0.7 10^3/uL (1.0-4.0); LYMPHOCYTES % (AUTO) 9 % (12-44); MEAN CORPUSCULAR HEMOGLOBIN 36 pg (25-34); MEAN CORPUSCULAR HGB CONC 33 g/dL (32-36); MEAN CORPUSCULAR VOLUME 111 fL (80-99); MEAN PLATELET VOLUME 9.6 fL (9.0-12.2); MONOCYTES # (AUTO) 0.6 10^3/uL (0.0-1.0); MONOCYTES % (AUTO) 7 % (0-12); NEUTROPHILS # (AUTO) 6.8 10^3/uL (1.8-7.8); NEUTROPHILS % (AUTO) 82 % (42-75); PLATELET COUNT 88 10^3/uL (130-400); WHITE BLOOD COUNT 8.2 10^3/uL (4.3-11.0)
[2022-12-28 06:31] LABS: SMEAR SCAN COMMENT YES
[2022-12-28 06:40] LABS: ALBUMIN 3.3 GM/DL (3.2-4.5); POTASSIUM 3.6 MMOL/L (3.6-5.0)
[2022-12-28 06:41] LABS: CALCIUM 8.3 MG/DL (8.5-10.1)
[2022-12-28 06:43] LABS: TOTAL PROTEIN 5.1 GM/DL (6.4-8.2)
[2022-12-28 06:44] LABS: BILIRUBIN,TOTAL 0.5 MG/DL (0.1-1.0)
[2022-12-28 06:46] LABS: CREATININE SERUM 1.36 MG/DL (0.60-1.30)
--- NOTE | 2022-12-28 06:53 | Diagnostic Imaging Report ---
INDICATION: medical clearance hip fracture. Preoperative evaluation. COMPARISON: 12/09/2022 FINDINGS: Single frontal view of the chest demonstrates normal heart size and pulmonary vascularity. The lungs are well aerated and clear. No large pleural effusion or pneumothorax is seen. The visualized osseous structures show no acute abnormalities. Right-sided subclavian Port-A-Cath is present with tip in the low SVC. IMPRESSION: 1. No acute cardiopulmonary process. Dictated by: Dictated on workstation # [id number]
[2022-12-28] MEDS ORDERED: morphine INJ 10 MG/ML 1ML (SYR OR VIAL) IVP STA (07:10)
[2022-12-28] MEDS ORDERED: ceFAZolin INJECTION 2,000 MG in NS (IVPB) 50 ML 50 ML IV ONE (07:30)
[2022-12-28] MEDS ORDERED: LACTATED RINGERS 1,000 ML 1,000 ML IV PRN (07:45)
[2022-12-28] MEDS ORDERED: ACETAMINOPHEN 500 MG TABLET PO PRN (08:00)
[2022-12-28] MEDS ORDERED: NALOXONE 0.4 MG/ML 1 ML VIAL IV PRN (08:00)
--- NOTE | 2022-12-28 08:44 | Consultation - Ortho ---
Consult - Ortho Subjective Date of Exam 12/28/22 Chief Complaint left hip injury HPI/Events since last exam slipped on water and fell landing on left side, unable to walk on left leg, brought to ER and found to have a left intertrochanteric femur fracture, I was asked to evaluate and treat the fracture Medical, Surgical History multiple myeloma; hypercholesterolemia; HTN; Anxiety colon resection, stem cell transplant, appendectomy, cholecystectomy, hysterectomy Social History nonsmoker Family History CVA, cancer Review of Systems noncontibutory Allergies: Coded Allergies: Sulfa (Sulfonamide Antibiotics) (Verified Allergy, Unknown, hives, 05/24/18) latex (Verified Allergy, Unknown, anaphylaxis, 05/24/18) midazolam (Verified Allergy, Unknown, pt has had xanax and ativan in past, 12/10/22) vancomycin (Verified Allergy, Unknown, hives, 05/24/18) Uncoded Allergies: "SEEDS" (Adverse Reaction, Unknown, 06/18/22) CAN NOT HAVE SEEDS D/T DIVERTICULITIS PER PT Home Meds Active Scripts Apixaban (Eliquis) 5 Mg Tablet, 5 MG PO BID for 30 Days, #60 TAB Prov:NAOMY CARDONA MD, RESIDENT 12/11/22 Reported Medications Daratumumab (Darzalex) 400 Mg/20 Ml (20 Mg/Ml) Vial, 1800 MG IJ EVERY 28 DAYS, VIAL 12/02/22 Melatonin (Melatonin) 5 Mg Tablet, 5 MG PO HS PRN for SLEEP, TAB 12/02/22 Docusate Sodium (Docusate Sodium) 100 Mg Tablet, 100 MG PO BID PRN for CONSTIPATION-1ST LINE, TAB 12/02/22 Bisacodyl (Dulcolax) 5 Mg Tablet.dr, 5 MG PO BID PRN for CONSTIPATION-4TH LINE, TAB 12/02/22 Sennosides (Vegetable Laxative) 8.6 Mg Tablet, 8.6 MG PO BID PRN for CONSTIPATION-5TH LINE, TAB 12/02/22 Alendronate Sodium (Alendronate Sodium) 70 Mg Tablet, 70 MG PO TUE, TAB 12/02/22 Thyroid,Pork ([place] Thyroid) 15 Mg Tablet, 15 MG PO DAILY, TAB 12/02/22 Gabapentin (Gabapentin) 600 Mg Tablet, 600 MG PO HS, TAB 12/02/22 Calcium Carb & Citrate/Vit D3 (Calcium + D3 ER Tablet) 600MG-12.5 Tablet.er, 2 EACH PO BID, TAB 12/02/22 ALPRAZolam (ALPRAZolam) 0.25 Mg Tablet, 0.25 MG PO TID PRN for ANXIETY, TAB 06/16/22 Zolpidem Tartrate (Ambien) 5 Mg Tablet, 5 MG PO HS PRN for SLEEP, TAB 2ND LINE 06/16/22 Rosuvastatin Calcium (Rosuvastatin Calcium) 10 Mg Tablet, 10 MG PO DAILY, TAB 06/16/22 Potassium Chloride (K-Tab ER) 10 Meq Tablet.er, 10 MEQ PO HS, TAB 06/16/22 Potassium Chloride (K-Tab ER) 10 Meq Tablet.er, 20 MEQ PO DAILY, TAB TAKES 2 (10MEQ) TABS 06/16/22 Morphine Sulfate (Morphine Sulfate ER) 30 Mg Tablet.er, 30 MG PO Q12H, TAB 06/16/22 Scopolamine (Transderm-Scop) 1 Mg/3 Day Patch.td72, 1 PATCH TD EVERY 72 HOURS, PATCH 06/16/22 Ondansetron (Ondansetron Odt) 8 Mg Tab.rapdis, 8 MG PO TID PRN for NAUSEA/VOMITING-1ST LINE, TAB 03/01/19 Temazepam (Temazepam) 15 Mg Capsule, 15 MG PO HS PRN for SLEEP, CAP 1ST LINE 03/01/19 Morphine Sulfate (Morphine Sulfate IR Tablet) 15 Mg Tablet, 15 MG PO DAILY PRN for PAIN-SEVERE (8-10), TAB 03/01/19 Pantoprazole Sodium (Pantoprazole Sodium) 40 Mg Tablet.dr, 40 MG PO DAILY, TAB 05/24/18 Acyclovir (Acyclovir) 400 Mg Tablet, 400 MG PO BID, TAB 05/24/18 Potassium Phosphate,Monobasic (K-Phos Original) 500 Mg Tablet.alba, 1000 MG PO BID, TAB TAKES 2 (500MG) TABS 05/24/18 Objective Exam Left Leg: No obvious deformity, no wounds, able to dorsiflex the ankle, pulses intact, sensation grossly intact to light touch Vital Signs Vital Signs Date Time Temp Pulse Resp B/P (MAP) Pulse Ox O2 Delivery O2 Flow Rate FiO2 12/28/22 08:40 Nasal Cannula 2.00 12/28/22 08:31 36.8 105 20 175/84 (114) 97 Nasal Cannula 12/28/22 08:11 100 12 151/90 91 Nasal Cannula 5.00 12/28/22 05:13 36.8 99 16 137/76 (96) 96 Room Air Lab Results Laboratory Tests 12/28/22 06:20: White Blood Count 8.2, Red Blood Count 2.67L, Hemoglobin 9.7L, Hematocrit 30L, Mean Corpuscular Volume 111H, Mean Corpuscular Hemoglobin 36H, Mean Corpuscular Hemoglobin Concent 33, Red Cell Distribution Width 13.7, Platelet Count 88L, Mean Platelet Volume 9.6, Immature Granulocyte % (Auto) 1, Neutrophils (%) (Auto) 82H, Lymphocytes (%) (Auto) 9L, Monocytes (%) (Auto) 7, Eosinophils (%) (Auto) 1, Basophils (%) (Auto) 0, Neutrophils # (Auto) 6.8, Lymphocytes # (Auto) 0.7L, Monocytes # (Auto) 0.6, Eosinophils # (Auto) 0.1, Basophils # (Auto) 0.0, Immature Granulocyte # (Auto) 0.1, Sodium Level 137, Potassium Level 3.6, Chloride Level 106, Carbon Dioxide Level 24, Anion Gap 7, Blood Urea Nitrogen 16, Creatinine 1.36H, Estimat Glomerular Filtration Rate 42, BUN/Creatinine Ratio 12, Glucose Level 138H, Calcium Level 8.3L, Corrected Calcium 8.9, Total Bilirubin 0.5, Aspartate Amino Transf (AST/SGOT) 19, Alanine Aminotransferase (ALT/SGPT) 13, Alkaline Phosphatase 77, Total Protein 5.1L, Albumin 3.3, Smear Scan YES Imaging 2 views of left hip and AP Pelvis dated 12/28/22 were reviewed from PACS and demonstrated nondisplaced left intertrochanteric femur fracture Assessment and Plan Assessment Left Intertrochanteric Femur Fracture Problem List Left Intertrochanteric Femur Fracture Plan Reviewed exam and radiographs. Discussed findings. I have recommended proceeding with intramedullary stabilization of the left intertrochanteric femur fracture. Nature of the procedure and the postoperative course were discussed. Risks of infection, thromboembolic event, intraoperative and postoperative fracture, malunion, and nonunion were discussed. Will plan to resume her apixaban 24 hours after the procedure. Will plan to proceed with surgery this AM. Final Diagonsis Left Intertrochanteric Femur Fracture Level of the visit: Level 3 HELENE ESCOBEDO MD Dec 28, 2022 08:43
[2022-12-28] MEDS ORDERED: ceFAZolin 1,000 MG VIAL IV ONE ×2 (08:45→09:30)
[2022-12-28] MEDS ORDERED: ceFAZolin 1 GM/NS 50 ML (SDC/OR ONLY) IV ONE ×2 (09:30)
[2022-12-28] MEDS ORDERED: fentaNYL INJECTION 100 MCG/2 ML VIAL ONE (09:31)
[2022-12-28] MEDS ORDERED: SEVOFLURANE (ULTANE) 15 ML INHAL SOLN ONE (10:40)
[2022-12-28] MEDS ORDERED: LIDOCAINE PF 2% 5 ML VIAL ONE (10:40)
[2022-12-28] MEDS ORDERED: ONDANSETRON INJECTION 4 MG/2 ML (SDV) ONE (10:40)
[2022-12-28] MEDS ORDERED: dexAMETHasone INJ 10 MG/ML 1 ML VIAL ONE (10:40)
[2022-12-28] MEDS ORDERED: proPOfol INJECTION 200 MG/20 ML VIAL IV ONE (10:41)
[2022-12-28] MEDS ORDERED: PHENYLEPHRINE 100 MCG/ML 10 ML (ANESTHESIA) SYR ONE (10:41)
--- NOTE | 2022-12-28 10:44 | Operative Report - Ortho ---
Operative Report Surgeon (s)/Ribbon Lap Machine Tender (s) Surgeon HELENE ESCOBEDO MD Ribbon Lap Machine Tender n/a Pre-Operative Diagnosis Left Intertrochanteric Femur Fracture Post-Operative Diagnosis same Operative Report Date of Procedure: Dec 28, 2022 Name of Procedure Performed: Intramedullary Nailing of Left Intertrochanteric Femur Fracture Description & Findings After obtaining informed consent and marking the patient in the preoperative holding area, the patient was administered IV antibiotics and taken to the operating room. Anesthesia was induced. Patient was transferred to the fracture table. Surgical timeout was taken. The left lower extremity was placed in the traction spar and the right leg was placed in the well leg polk. The left lower extremity was prepped and draped in the usual sterile fashion. Incision was made just proximal to the greater trochanter. Blunt dissection was performed down to the tip of the trochanter. A guide wire was placed through a trochanteric entry point. Position of the wire was confirmed using C-arm. An entry reamer was then placed over the guidewire and reamed to the level of the lesser trochanter. A trochanteric gamma nail with a 130 degree angle was selected and assembled on the back table. Nail was inserted through the trochanteric entry point and seated by hand. Position of the nail was confirmed using C-arm. A guide wire was placed for the cephalomedullary screw. Version of the wire was obtained on the lateral. Measurement was taken and the reamer was set to 90 mm. Reamer was used over the guidewire and then the cephalomedullary screw was placed. Position of the cephalomedullary screw was confirmed on C-arm. Set screw was then tightened onto the cephalomedullary screw and then backed off 1/8 turn. Attention was then turned to the distal screw and using the provided guides, a 35 mm screw was placed through the static portion of the distal slot. Final C arm images were obtained, demonstrated appropriate placement of hardware with adequate reduction, and were transferred to PACS. Incision sites were irrigated with normal saline. Closed subcutaneously with 2- 0 vicryl and skin was closed with lukas. Dressed with xeroform, 4x4s, ABD, and tape. Patient tolerated the procedure well and was stable to the recovery room. Anesthesia Type General Estimated Blood Loss 100 mL Specimen(s) collected/removed None HELENE ESCOBEDO MD Dec 28, 2022 10:44
[2022-12-28] MEDS ORDERED: ONDANSETRON INJECTION 4 MG/2 ML (SDV) IVP PRN (11:00)
[2022-12-28] MEDS ORDERED: fentaNYL INJECTION 100 MCG/2 ML VIAL IVP ONE (11:00)
--- NOTE | 2022-12-28 11:53 | History & Physical ---
NAOMY CARDONA MD, RESIDENT 12/28/22 1153: HPI History of Present Illness: CC: Fall Patient is a 72-year-old female with a past medical history of multiple myeloma presenting to the ED today with left hip pain. Patient states she was getting up to use the restroom, seem to have left the water running and did not realize there was water on the floor on which she slipped. She does remember hitting her head when she fell however did not lose consciousness. She does use Eliquis due to a history of DVT. In the ED, pelvic x-ray and hip CT was notable for intertrochanteric fracture of the proximal left femur. Patient was ultimately admitted for further management. Source: patient Exam Limitations: no limitations Date seen by provider: Dec 28, 2022 Time Seen by Provider: 14:50 Attending Physician Geneva Sigala Aprn PCP Admitting Physician: Rick Olmos MD Attending Physician: Rick Olmos MD Consult Date of Admission Dec 28, 2022 at 07:47 Home Medications Home Medications Reviewed patient Home Medication Reconciliation performed by pharmacy medication reconciliations energy conservation technician and/or nursing. Patients Allergies have been reviewed. Allergies Coded Allergies: Sulfa (Sulfonamide Antibiotics) (Verified Allergy, Unknown, hives, 05/24/18) latex (Verified Allergy, Unknown, anaphylaxis, 05/24/18) midazolam (Verified Allergy, Unknown, pt has had xanax and ativan in past, 12/10/22) vancomycin (Verified Allergy, Unknown, hives, 05/24/18) Uncoded Allergies: "SEEDS" (Adverse Reaction, Unknown, 06/18/22) CAN NOT HAVE SEEDS D/T DIVERTICULITIS PER PT [id number] Hx Patient Social History 2nd Hand Smoke Exposure: No Recent Hopitalizations: No Alcohol Use?: No Immunizations Up To Date Influenza Vaccine Up-to-Date: Yes; Up-to-Date First/Initial COVID19 Vaccinat: N/A Second COVID19 Vaccination Luis: pt unable to recall which one Third COVID19 Vaccination Date: pt unable to recall which one Past Medical History Chronic Pain Multiple Myeloma Hypothyroidism GERD Family Medical History Significant Family History: Cancer, Stroke Review of Systems ([facility]) Constitutional: No fever EENTM: No nose congestion Respiratory: No cough, No dyspnea on exertion, No short of breath Cardiovascular: No chest pain, No edema, No palpitations Gastrointestinal: No abdominal pain, No constipation, No diarrhea, No nausea, No vomiting Musculoskeletal: joint pain Psychiatric/Neurological: Denies No Symptoms Reported Reviewed Test Results Reviewed Test Results Lab Laboratory Tests 12/28/22 06:20: White Blood Count 8.2, Red Blood Count 2.67L, Hemoglobin 9.7L, Hematocrit 30L, Mean Corpuscular Volume 111H, Mean Corpuscular Hemoglobin 36H, Mean Corpuscular Hemoglobin Concent 33, Red Cell Distribution Width 13.7, Platelet Count 88L, Mean Platelet Volume 9.6, Immature Granulocyte % (Auto) 1, Neutrophils (%) (Auto) 82H, Lymphocytes (%) (Auto) 9L, Monocytes (%) (Auto) 7, Eosinophils (%) (Auto) 1, Basophils (%) (Auto) 0, Neutrophils # (Auto) 6.8, Lymphocytes # (Auto) 0.7L, Monocytes # (Auto) 0.6, Eosinophils # (Auto) 0.1, Basophils # (Auto) 0.0, Immature Granulocyte # (Auto) 0.1, Sodium Level 137, Potassium Level 3.6, Chloride Level 106, Carbon Dioxide Level 24, Anion Gap 7, Blood Urea Nitrogen 16, Creatinine 1.36H, Estimat Glomerular Filtration Rate 42, BUN/Creatinine Ratio 12, Glucose Level 138H, Calcium Level 8.3L, Corrected Calcium 8.9, Total Bilirubin 0.5, Aspartate Amino Transf (AST/SGOT) 19, Alanine Aminotransferase (ALT/SGPT) 13, Alkaline Phosphatase 77, Total Protein 5.1L, Albumin 3.3, Smear Scan YES Radiology Head CT (12/28/2022): IMPRESSION: 1. No acute intracranial abnormality. No CT evidence of mass, acute infarct or intracranial hemorrhage. Hip/pelvis x-ray L (12/28/2022): IMPRESSION: 1. Acute fracture of the proximal left femur as above. Pelvis CT (12/28/2022): FINDINGS: There is acute intertrochanteric fracture of the proximal left femur. There is no significant displacement of fracture fragments. Femoral acetabular joint space remains intact. Osseous pelvis is intact. SI joints are symmetric. There is no diastases of the pubic symphysis. Included portions right femur are intact as well. Right femoroacetabular joint space is also maintained. Soft tissue structures are unremarkable. Urinary bladder is unopacified. No calculi are seen within urinary bladder. IMPRESSION: 1. Acute fracture of the proximal left femur as above. Chest x-ray (12/28/2022): IMPRESSION: 1. No acute cardiopulmonary process. Physical Exam-([facility]) Physical Exam Vital Signs VS - Last 72 Hours, by Label 12/28/22 12/28/22 12/28/22 12/28/22 05:13 08:11 08:31 08:40 Temp 36.8 36.8 Pulse 99 100 105 Resp 16 12 20 B/P (MAP) 137/76 (96) 151/90 175/84 (114) Pulse Ox 96 91 97 O2 Delivery Room Air Nasal Cannula Nasal Cannula Nasal Cannula O2 Flow Rate 5.00 2.00 12/28/22 12/28/22 12/28/22 12/28/22 10:54 10:54 11:04 11:05 Temp 37.1 Resp 20 20 B/P (MAP) 167/97 (120) 176/105 (128) Pulse Ox 98 100 O2 Delivery OxyMask OxyMask OxyMask OxyMask O2 Flow Rate 6.00 6.00 6.00 6.00 12/28/22 12/28/22 12/28/22 12/28/22 11:10 11:15 11:20 11:23 Resp 18 20 B/P (MAP) 177/101 (126) 169/99 (122) Pulse Ox 100 100 O2 Delivery OxyMask OxyMask OxyMask OxyMask O2 Flow Rate 6.00 6.00 6.00 6.00 12/28/22 12/28/22 12/28/22 12/28/22 11:27 11:30 11:37 11:40 Resp 18 18 B/P (MAP) 177/102 (127) 144/88 (106) Pulse Ox 99 93 O2 Delivery OxyMask OxyMask Room Air OxyMask O2 Flow Rate 3.00 2.00 2.00 12/28/22 12/28/22 12/28/22 12/28/22 11:45 11:50 11:50 11:58 Temp 36.6 36.6 Pulse 106 Resp 20 18 B/P (MAP) 146/84 (104) 150/78 (102) Pulse Ox 93 95 O2 Delivery Room Air OxyMask Room Air Nasal Cannula O2 Flow Rate 2.00 2.00 Capillary Refill : Less Than 3 SecondsLess Than 3 Seconds General Appearance: WD/WN, no apparent distress, other (Quite sleepy after procedure) HEENT: normal ENT inspection Neck: non-tender, full range of motion Respiratory: chest non-tender, lungs clear, normal breath sounds, no respiratory distress, no accessory muscle use, other (Port in right side of chest) Cardiovascular: regular rate, rhythm, no edema, no murmur Gastrointestinal: normal bowel sounds, non tender, soft Extremities: no pedal edema Neurologic/Psychiatric: alert, oriented x 3 Skin: normal color, cyanosis Assessment/Plan Assessment/Plan Admission Dx Intertrochanteric fracture of proximal left femur Admission Status: Observation (1) Intertrochanteric fracture of left femur Status: Acute Assessment & Plan: Noted on hip x-ray and CT. Secondary to ground-level fall. Plan: Orthopedic surgery consulted, status post intramedullary nailing of the left femur on 12/28 We will hold Eliquis for 24 hours postsurgery Pain control Qualifiers: (2) Left hip pain Status: Acute Assessment & Plan: See above (3) Fall Status: Acute Assessment & Plan: Patient fell secondary to slipping on water. Did hit head however CT head was negative. Continue to monitor. Qualifiers: Qualified Codes: W19.XXXA - Unspecified fall, initial encounter (4) Multiple myeloma Status: Chronic Assessment & Plan: History of multiple myeloma. Will resume home medications once med rec completed. (5) Anemia Status: Chronic Assessment & Plan: Patient has chronic anemia, hemoglobin noted to be 9.7 in the ED. Given that patient had a traumatic fall, will monitor with daily CBC. Baseline appears to be around 10. (6) Thrombocytopenia Status: Chronic Assessment & Plan: History of thrombocytopenia, noted to have platelet count of 88 in the ED. Likely secondary to patient's multiple myeloma treatment. We w ill continue to monitor with daily CBC. RICK OLMOS MD 12/28/22 1536: Home Medications Allergies Coded Allergies: Sulfa (Sulfonamide Antibiotics) (Verified Allergy, Unknown, hives, 05/24/18) latex (Verified Allergy, Unknown, anaphylaxis, 05/24/18) midazolam (Verified Allergy, Unknown, pt has had xanax and ativan in past, 12/10/22) vancomycin (Verified Allergy, Unknown, hives, 05/24/18) Uncoded Allergies: "SEEDS" (Adverse Reaction, Unknown, 06/18/22) CAN NOT HAVE SEEDS D/T DIVERTICULITIS PER PT Supervisory-Addendum Brief Supervisory Addendum I personally performed the akins portions of the visit, discussed case with resident and concur with resident documentation of history, physical exam, assessment and treatment plan unless otherwise noted. NAOMY CARDONA MD, RESIDENT Dec 28, 2022 11:53 RICK OLMOS MD Dec 28, 2022 15:36
--- NOTE | 2022-12-28 13:09 | Anesthesia-General Post-Op ---
General Patient Condition Mental Status/LOC: Same as Preop Cardiovascular: Satisfactory Nausea/Vomiting: Absent Respiratory: Satisfactory Pain: Controlled Complications: Absent Post Op Complications Complications None Follow Up Care/Instructions Patient Instructions None needed. Anesthesia/Patient Condition Patient Condition Patient is doing well, no complaints, stable vital signs, no apparent adverse anesthesia problems. No complications reported per nursing. DOMINGO CURTIS CRNA Dec 28, 2022 13:08
[2022-12-28] MEDS: KETOROLAC INJ 15 MG/ML VIAL IV SCH ×2 (13:36→18:01)
--- NOTE | 2022-12-28 16:29 | Diagnostic Imaging Report ---
FLUOROSCOPY UP TO 1 HOUR INDICATION: GAMMA NAILING LT HIP IN OR. COMPARISON: Pelvic CT 12/28/2022. FINDINGS/ IMPRESSION: Intraoperative fluoroscopy was obtained for left femur fixation for intertrochanteric fracture. Dose: 53 seconds. 4.5 mGy Please see operative note for full details regarding real-time findings. Dictated by: Dictated on workstation # [id number]
[2022-12-28] MEDS: oxyCODONE IMMEDIATE RELEASE 5 MG TABLET PO PRN ×2 (18:01→22:10)
[2022-12-28] MEDS ORDERED: APIXABAN 5 MG TABLET PO SCH (21:00)
[2022-12-29] MEDS: KETOROLAC INJ 15 MG/ML VIAL IV SCH ×5 (00:31→23:38)
[2022-12-29 03:11] VITALS: BP 100/65
[2022-12-29 05:06] LABS: HEMOGLOBIN 7.7 g/dL (11.5-16.0)
[2022-12-29 05:08] LABS: MEAN PLATELET VOLUME 10.5 fL (9.0-12.2); WHITE BLOOD COUNT 8.2 10^3/uL (4.3-11.0)
[2022-12-29 05:20] LABS: ALBUMIN 2.7 GM/DL (3.2-4.5); POTASSIUM 4.5 MMOL/L (3.6-5.0)
[2022-12-29 05:22] LABS: CALCIUM 7.7 MG/DL (8.5-10.1)
[2022-12-29 05:23] LABS: TOTAL PROTEIN 4.1 GM/DL (6.4-8.2)
[2022-12-29 05:25] LABS: BILIRUBIN,TOTAL 0.5 MG/DL (0.1-1.0)
[2022-12-29 05:26] LABS: CREATININE SERUM 1.41 MG/DL (0.60-1.30)
[2022-12-29 07:40] VITALS: BP 109/64
[2022-12-29] MEDS: oxyCODONE IMMEDIATE RELEASE 5 MG TABLET PO PRN (08:09)
--- NOTE | 2022-12-29 08:17 | Progress Note - Ortho ---
Progress Note Subjective Date of Exam 12/29/22 Chief Complaint POD #1 IM Nailing of L IT Femur Fx HPI/Events since last exam doing well, pain controlled, has not been up yet Review of Systems - Allergies: Coded Allergies: Sulfa (Sulfonamide Antibiotics) (Verified Allergy, Unknown, hives, 05/24/18) latex (Verified Allergy, Unknown, anaphylaxis, 05/24/18) midazolam (Verified Allergy, Unknown, pt has had xanax and ativan in past, 12/10/22) vancomycin (Verified Allergy, Unknown, hives, 05/24/18) Uncoded Allergies: "SEEDS" (Adverse Reaction, Unknown, 06/18/22) CAN NOT HAVE SEEDS D/T DIVERTICULITIS PER PT Home Meds Active Scripts Apixaban (Eliquis) 5 Mg Tablet, 5 MG PO BID for 30 Days, #60 TAB Prov:NAOMY CARDONA MD, RESIDENT 12/11/22 Reported Medications Daratumumab (Darzalex) 400 Mg/20 Ml (20 Mg/Ml) Vial, 1800 MG IJ EVERY 28 DAYS, VIAL 12/02/22 Melatonin (Melatonin) 5 Mg Tablet, 5 MG PO HS PRN for SLEEP, TAB 12/02/22 Docusate Sodium (Docusate Sodium) 100 Mg Tablet, 100 MG PO BID PRN for CONSTIPATION-1ST LINE, TAB 12/02/22 Bisacodyl (Dulcolax) 5 Mg Tablet.dr, 5 MG PO BID PRN for CONSTIPATION-4TH LINE, TAB 12/02/22 Sennosides (Vegetable Laxative) 8.6 Mg Tablet, 8.6 MG PO BID PRN for CONSTIPATION-5TH LINE, TAB 12/02/22 Alendronate Sodium (Alendronate Sodium) 70 Mg Tablet, 70 MG PO TUE, TAB 12/02/22 Thyroid,Pork ([place] Thyroid) 15 Mg Tablet, 15 MG PO DAILY, TAB 12/02/22 Gabapentin (Gabapentin) 600 Mg Tablet, 600 MG PO HS, TAB 12/02/22 Calcium Carb & Citrate/Vit D3 (Calcium + D3 ER Tablet) 600MG-12.5 Tablet.er, 2 EACH PO BID, TAB 12/02/22 ALPRAZolam (ALPRAZolam) 0.25 Mg Tablet, 0.25 MG PO TID PRN for ANXIETY, TAB 06/16/22 Zolpidem Tartrate (Ambien) 5 Mg Tablet, 5 MG PO HS PRN for SLEEP, TAB 2ND LINE 06/16/22 Rosuvastatin Calcium (Rosuvastatin Calcium) 10 Mg Tablet, 10 MG PO DAILY, TAB 06/16/22 Potassium Chloride (K-Tab ER) 10 Meq Tablet.er, 10 MEQ PO HS, TAB 06/16/22 Potassium Chloride (K-Tab ER) 10 Meq Tablet.er, 20 MEQ PO DAILY, TAB TAKES 2 (10MEQ) TABS 06/16/22 Morphine Sulfate (Morphine Sulfate ER) 30 Mg Tablet.er, 30 MG PO Q12H, TAB 06/16/22 Scopolamine (Transderm-Scop) 1 Mg/3 Day Patch.td72, 1 PATCH TD EVERY 72 HOURS, PATCH 06/16/22 Ondansetron (Ondansetron Odt) 8 Mg Tab.rapdis, 8 MG PO TID PRN for NAUSEA/VOMITING-1ST LINE, TAB 03/01/19 Temazepam (Temazepam) 15 Mg Capsule, 15 MG PO HS PRN for SLEEP, CAP 1ST LINE 03/01/19 Morphine Sulfate (Morphine Sulfate IR Tablet) 15 Mg Tablet, 15 MG PO DAILY PRN for PAIN-SEVERE (8-10), TAB 03/01/19 Pantoprazole Sodium (Pantoprazole Sodium) 40 Mg Tablet.dr, 40 MG PO DAILY, TAB 05/24/18 Acyclovir (Acyclovir) 400 Mg Tablet, 400 MG PO BID, TAB 05/24/18 Potassium Phosphate,Monobasic (K-Phos Original) 500 Mg Tablet.alba, 1000 MG PO BID, TAB TAKES 2 (500MG) TABS 05/24/18 Objective Exam L Hip: Dressing C/D/I, +DF of ankle, no s/s of DVT Vital Signs Vital Signs Date Time Temp Pulse Resp B/P (MAP) Pulse Ox O2 Delivery O2 Flow Rate FiO2 12/29/22 07:40 36.3 82 20 109/64 (79) 99 Nasal Cannula 2.00 12/29/22 03:11 36.5 75 18 100/65 (77) 99 Nasal Cannula 2.00 12/28/22 23:20 36.2 94 16 107/67 (80) 99 Room Air 12/28/22 20:35 Nasal Cannula 2.00 12/28/22 19:56 36.3 94 16 102/68 (79) 98 Nasal Cannula 2.00 12/28/22 15:43 36.0 101 18 149/86 (107) 97 Nasal Cannula 2.00 12/28/22 11:58 36.6 106 18 150/78 (102) 95 Nasal Cannula 2.00 12/28/22 11:50 Room Air 12/28/22 11:50 36.6 20 146/84 (104) 93 OxyMask 2.00 12/28/22 11:45 Room Air 12/28/22 11:40 18 144/88 (106) 93 OxyMask 2.00 12/28/22 11:37 Room Air 12/28/22 11:30 18 177/102 (127) 99 OxyMask 2.00 12/28/22 11:27 OxyMask 3.00 12/28/22 11:23 OxyMask 6.00 12/28/22 11:20 20 169/99 (122) 100 OxyMask 6.00 12/28/22 11:15 OxyMask 6.00 12/28/22 11:10 18 177/101 (126) 100 OxyMask 6.00 12/28/22 11:05 OxyMask 6.00 12/28/22 11:04 20 176/105 (128) 100 OxyMask 6.00 12/28/22 10:54 OxyMask 6.00 12/28/22 10:54 37.1 20 167/97 (120) 98 OxyMask 6.00 12/28/22 08:40 Nasal Cannula 2.00 12/28/22 08:31 36.8 105 20 175/84 (114) 97 Nasal Cannula I & O 12/29/22 06:59 Intake Total 1050 ml Output Total 2075 ml Balance -1025 ml Lab Results Laboratory Tests 12/29/22 05:00: White Blood Count 8.2, Red Blood Count 2.12L, Hemoglobin 7.7#L, Hematocrit 23L, Mean Corpuscular Volume 109H, Mean Corpuscular Hemoglobin 36H, Mean Corpuscular Hemoglobin Concent 33, Red Cell Distribution Width 13.6, Platelet Count 89L, Mean Platelet Volume 10.5, Percent Immature Platelet Fraction 2.8, Sodium Level 135, Potassium Level 4.5, Chloride Level 105, Carbon Dioxide Level 26, Anion Gap 4L, Blood Urea Nitrogen 23H, Creatinine 1.41H, Estimat Glomerular Filtration Rate 40, BUN/Creatinine Ratio 16, Glucose Level 104, Calcium Level 7.7L, Corrected Calcium 8.7, Total Bilirubin 0.5, Aspartate Amino Transf (AST/SGOT) 27, Alanine Aminotransferase (ALT/SGPT) 21, Alkaline Phosphatase 60, Total Protein 4.1L, Albumin 2.7L Assessment and Plan Assessment L IT Femur Fx s/p IM Nailing Problem List L IT Femur Fx s/p IM Nailing Plan PT/OT DVT Prophylaxis Will most likely need extended care prior to transitioning home; will see how therapy goes F/U with me in 2 weeks for staple removal (01/12) Final Diagonsis L IT Femur Fx s/p IM Nailing Level of the visit: Level 3 (global) HELENE ESCOBEDO MD Dec 29, 2022 08:17
[2022-12-29] MEDS ORDERED: ALENDRONATE 70 MG PO SCH (08:30)
[2022-12-29] MEDS ORDERED: [UNRECOGNIZED DRUG - REMARK] PO PRN (08:30)
[2022-12-29] MEDS ORDERED: PATIENT MAY USE OWN MEDS, ALL MC SCH (08:30)
[2022-12-29] MEDS ORDERED: [UNRECOGNIZED DRUG - REMARK] PO SCH (09:00)
[2022-12-29] MEDS ORDERED: [UNRECOGNIZED DRUG - REMARK] PO SCH (09:00)
[2022-12-29] MEDS ORDERED: [UNRECOGNIZED DRUG - REMARK] PO SCH (09:00)
[2022-12-29] MEDS ORDERED: APIXABAN 5 MG TABLET PO SCH (09:00)
[2022-12-29] MEDS ORDERED: [UNRECOGNIZED DRUG - REMARK] PO SCH (09:00)
[2022-12-29] MEDS ORDERED: [UNRECOGNIZED DRUG - REMARK] PO SCH (09:00)
--- NOTE | 2022-12-29 10:36 | Progress Note ---
NAOMY CARDONA MD, RESIDENT 12/29/22 1036: Subjective Subjective/Events-last exam Patient is doing well this morning. Is in a little bit of pain from her hip surgery. However she states she has been eating well. Has not been able to get out of bed just yet. Notes that her urinary catheter is bothering her and would like to get it taken out if possible. Would also like to have her home medications restarted. Review of Systems General: No Fatigue HEENT: No Head Aches Pulmonary: No Dyspnea, No Cough Cardiovascular: No: Chest Pain, Palpitations, Edema Gastrointestinal: No: Nausea, Vomiting, Diarrhea, Constipation Genitourinary: No Dysuria Objective Exam Last Set of Vital Signs Vital Signs Date Time Temp Pulse Resp B/P (MAP) Pulse Ox O2 Delivery O2 Flow Rate FiO2 12/29/22 09:01 99 Nasal Cannula 2.00 12/29/22 07:40 36.3 82 20 109/64 (79) Capillary Refill : Less Than 3 SecondsLess Than 3 Seconds I&O Intake and Output 12/28/22 23:59 Intake Total 750 ml Output Total 1900 ml Balance -1150 ml Intake Oral 750 ml Output Urine Total 1900 ml # Voids 3 Daily Weight Change No General: Alert, Oriented X3 HEENT: Atraumatic Lungs: Clear to Auscultation, Normal Air Movement Heart: Regular Rate, No Murmurs, Other (Port in right side of chest) Abdomen: Normal Bowel Sounds, Soft, No Tenderness Extremities: No Edema Neuro: Normal Speech Psych/Mental Status: Mental Status NL Results/Procedures Lab Laboratory Tests 12/29/22 05:00: White Blood Count 8.2, Red Blood Count 2.12L, Hemoglobin 7.7#L, Hematocrit 23L, Mean Corpuscular Volume 109H, Mean Corpuscular Hemoglobin 36H, Mean Corpuscular Hemoglobin Concent 33, Red Cell Distribution Width 13.6, Platelet Count 89L, Mean Platelet Volume 10.5, Percent Immature Platelet Fraction 2.8, Sodium Level 135, Potassium Level 4.5, Chloride Level 105, Carbon Dioxide Level 26, Anion Gap 4L, Blood Urea Nitrogen 23H, Creatinine 1.41H, Estimat Glomerular Filtration Rate 40, BUN/Creatinine Ratio 16, Glucose Level 104, Calcium Level 7.7L, Corrected Calcium 8.7, Total Bilirubin 0.5, Aspartate Amino Transf (AST/SGOT) 27, Alanine Aminotransferase (ALT/SGPT) 21, Alkaline Phosphatase 60, Total Protein 4.1L, Albumin 2.7L Radiology Head CT (12/28/2022): IMPRESSION: 1. No acute intracranial abnormality. No CT evidence of mass, acute infarct or intracranial hemorrhage. Hip/pelvis x-ray L (12/28/2022): IMPRESSION: 1. Acute fracture of the proximal left femur as above. Pelvis CT (12/28/2022): FINDINGS: There is acute intertrochanteric fracture of the proximal left femur. There is no significant displacement of fracture fragments. Femoral acetabular joint space remains intact. Osseous pelvis is intact. SI joints are symmetric. There is no diastases of the pubic symphysis. Included portions right femur are intact as well. Right femoroacetabular joint space is also maintained. Soft tissue structures are unremarkable. Urinary bladder is unopacified. No calculi are seen within urinary bladder. IMPRESSION: 1. Acute fracture of the proximal left femur as above. Chest x-ray (12/28/2022): IMPRESSION: 1. No acute cardiopulmonary process. Assessment/Plan Assessment/Plan (1) Intertrochanteric fracture of left femur Status: Acute Assessment & Plan: Noted on hip x-ray and CT. Secondary to ground-level fall. Plan: Orthopedic surgery consulted, status post intramedullary nailing of the left femur on 12/28 Eliquis restarted today after clearance by orthopedics Restarting home medications PT/OT consulted, patient interested in possible transition to inpatient rehab Qualifiers: (2) Left hip pain Status: Acute Assessment & Plan: See above (3) Fall Status: Acute Assessment & Plan: Patient fell secondary to slipping on water. Did hit head however CT head was negative. Continue to monitor. Qualifiers: Qualified Codes: W19.XXXA - Unspecified fall, initial encounter (4) Multiple myeloma Status: Chronic Assessment & Plan: History of multiple myeloma. Restarting home medications (5) Anemia Status: Chronic Assessment & Plan: Patient has chronic anemia, hemoglobin noted to be 9.7 in the ED. Given that patient had a traumatic fall, will monitor with daily CBC. Baseline appears to be around 10. -We will check iron panel -Monitor daily CBC (6) Thrombocytopenia Status: Chronic Assessment & Plan: History of thrombocytopenia, noted to have platelet count of 88 in the ED. Likely secondary to patient's multiple myeloma treatment. We will continue to monitor with daily CBC. Platelet count stable this morning. RICK OLMOS MD 12/29/22 1111: Supervisory-Addendum Brief Supervisory Addendum I personally performed the akins portions of the visit, discussed case with resident and concur with resident documentation of history, physical exam, assessment and treatment plan unless otherwise noted. IRF Evaluation placed NAOMY CARDONA MD, RESIDENT Dec 29, 2022 10:36 RICK OLMOS MD Dec 29, 2022 11:11
[2022-12-29] MEDS ORDERED: MORP30TA PO (10:37)
--- NOTE | 2022-12-29 11:11 | Occupational Therapy Eval ---
OT Evaluation-General/PLF Medical Diagnosis Admission Date Dec 28, 2022 at 07:47 Medical Diagnosis: fall, LLE fx Onset Date: Dec 28, 2022 Therapy Diagnosis Therapy Diagnosis: fall, pain Height/Weight Height (Feet): 5 Height (Inches): 1.00 Weight (Pounds): 127 Precautions Precautions/Isolations: Fall Prevention, Standard Precautions Weight Bear Status Weight Bearing Restriction: Weight Bearing/Tolerated Location Restriction: L LE Referral Referral Reason: Self Care, Evaluation/Treatment Medical History Reviewed History: Yes Social History Home: Single Level ([facility] Current Living Status: Alone Entry Into Home: Stairs With Railing Steps Into Home: 2 Steps Inside Home: 0 ADL-Prior Level of Function SCALE: Activities may be completed with or without assistive devices. 6-Nfzhuukyis-kfyhmuf completes the activity by him/herself with no assistance from a helper. 5-Set-up or Clean-up Assistance-helper sets up or cleans up; patient completes activity. [place] assists only prior to or following the activity. 4-Supervision or Touching Assistance-helper provides verbal cues and/or touching/steadying and/or contact guard assistance as patient completes activity. Assistance may be provided throughout the activity or intermittently. 3-Partial/Moderate Assistance-helper does LESS THAN HALF the effort. [place] lifts, holds or supports trunk or limbs, but provides less than half the effort. 2-Substantial/Maximal Assistance-helper does MORE THAN HALF the effort. [place] lifts or holds trunk or limbs and provides more than half the effort. 3-Jqnfgzfwt-myrbzh does ALL the effort. Patient does none of the effort to complete the activity. Or, the assistance of 2 or more helpers is required for the patient to complete the activity. If activity was not attempted, code reason: 7-Patient Refused. 9-Not Applicable-not attempted and the patient did not perform the activity before the current illness, exacerbation or injury. 10-Not Attempted due to Environmental Limitations-(lack of equipment, weather restraints, etc.). 88-Not Attempted due to Medical Conditions or Safety Concerns. 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 Patient repeats her favorite curse word several times and then apologizes Pain Numeric Pain Scale: 5-Moderate Pain Location: Left Location Body Site: Hip Mental Status/Objective Patient Orientation: Person, Place, Time, Situation Current Hand Dominance: Right Upper Extremity ROM BUE ROM WFLS Upper Extremity Coordination WNLs Upper Extremity Sensation INTACT Upper Extremity Strength 4/5 grossly ADL-Treatment ADL-Current While ambulating in room w/ FWW WBAT LLE, patient reported " Sh#! that hurts, I can't do this", however proceeds to ambulate. Eating (QC): 6 Oral Hygiene (QC): 5 Shower/Bathe Self (QC): 7 (shower shampoo cap provided, wash clothe for face and oral care supplies) Upper Body Dressing (QC): 5 Lower Body Dressing (QC): 3 (LLE. RLE Mod Ind) On/Off Footwear (QC): 3 (LLE, RLE Mod IND) Toileting Hygiene (QC): 4 Education OT Patient Education: Correct positioning, Home exercise program, Modified ADL techniques, Progress toward Goal/Update tx plan, Purpose of tx/functional activities, Reviewed precautions, Rehab process, Safety issues, Transfer techniques, Use of adapted equipment Teaching Recipient: Patient Teaching Methods: Demonstration, Discussion Response to Teaching: Verbalize Understanding, Reinforcement Needed OT Skilled Nursing Goals Skilled Nursing Goals Eating (QC): 6 Oral Hygiene (QC): 6 Toileting Hygiene (QC): 6 Shower/Bathe Self (QC): 6 Upper Body Dressing (QC): 6 Lower Body Dressing (QC): 6 On/Off Footwear (QC): 6 1=Demonstrate adherence to instructed precautions during ADL tasks. 2=Patient will verbalize/demonstrate understanding of assistive devices/modifications for ADL. 3=Patient will improve strength/tolerance for activity to enable patient to perform ADL's. OT Education/Plan Problem List/Assessment Assessment: Decreased Activ Tolerance, Decreased UE Strength, Impaired Self- Care Skills Discharge Recommendations Plan/Recommendations: Continue POC Therapy Discharge Recommendati: Post Acute OT Treatment Plan/Plan of Care Treatment,Training & Education: Yes Patient would benefit from OT for education, treatment and training to promote independence in ADL's, mobility, safety and/or upper extremity function for ADL's. Plan of Care: ADL Retraining, Functional Mobility, Group Exercise/Act as Ind, UE Funct Exercise/Act Treatment Duration: Jan 01, 2023 Frequency: 3 times per week Estimated Hrs Per Day: .25 hour per day Agreement: Yes Time Start Time: 09:40 Stop Time: 10:02 DATE: Dec 29, 2022 Total Time Billed (hr/min): 22 Billed Treatment Time EVM 22 min HANNAH MUELLER OT Dec 29, 2022 11:11
--- NOTE | 2022-12-29 11:15 | Physical Therapy Evaluation ---
PT Evaluation-General Medical Diagnosis Admission Date Dec 28, 2022 at 07:47 Medical Diagnosis: closed left hip fracture Onset Date: Dec 28, 2022 Therapy Diagnosis Therapy Diagnosis: impaired mobility/generalized weakness Height/Weight Height (Feet): 5 Height (Inches): 1.00 Weight (Pounds): 127 Precautions Precautions/Isolations: Fall Prevention, Standard Precautions Weight Bear Status Right Lower Extremity: Right Full Weight Bearing Left Lower Extremity: Left Weight Bearing/Tolerated Referral Physician: Nigel Reason for Referral: Evaluation/Treatment Medical History Pertinent Medical History: HTN Current History ER secondary to slipped and fell on a wet floor Reviewed History: Yes Social History Home: Single Level Current Living Status: Alone Entry Into Home: Stairs With Railing PT Steps Into Home: 2 Prior Prior Level of Function SCALE: Activities may be completed with or without assistive devices. 9-Hklsqviilq-gvscqlt completes the activity by him/herself with no assistance from a helper. 5-Set-up or Clean-up Assistance-helper sets up or cleans up; patient completes activity. [place] assists only prior to or following the activity. 4-Supervision or Touching Assistance-helper provides verbal cues and/or touching/steadying and/or contact guard assistance as patient completes activity. Assistance may be provided throughout the activity or intermittently. 3-Partial/Moderate Assistance-helper does LESS THAN HALF the effort. [place] lifts, holds or supports trunk or limbs, but provides less than half the effort. 2-Substantial/Maximal Assistance-helper does MORE THAN HALF the effort. [place] lifts or holds trunk or limbs and provides more than half the effort. 4-Rdvaltzfw-kxaykm does ALL the effort. Patient does none of the effort to complete the activity. Or, the assistance of 2 or more helpers is required for the patient to complete the activity. If activity was not attempted, code reason: 7-Patient Refused. 9-Not Applicable-not attempted and the patient did not perform the activity before the current illness, exacerbation or injury. 10-Not Attempted due to Environmental Limitations-(lack of equipment, weather restraints, etc.). 88-Not Attempted due to Medical Conditions or Safety Concerns. Bed Mobility: 6 Transfers (B,C,W/C): 6 Gait: 6 Stairs: 6 Indoor Mobility (Ambulation): Independent Stairs: Independent Prior Devices Use: None PT Evaluation-Current Subjective Patient agrees to therapy. Pain Numeric Pain Scale: 5-Moderate Pain Location: Left Location Body Site: Hip Pain Description: Acute Objective Patient Orientation: Normal For Age ROM/Strength ROM Lower Extremities bilateral LE WFL Strength Lower Extremities 3+/5 grossly bilateral LE all planes Integumentary/Posture Bowel Incontinence: No Bladder Incontinence: No Posture WFL Neuromuscular (Tone, Coordination, Reflexes) grossly intact Sensory Vision: Functional Hearing: Functional Transfers Lying to Sitting/Side of Bed(Q: 4 Sit to Stand (QC): 4 Chair/Qlu-sg-Upbbg Xfer(QC): 4 Gait Mode of Locomotion: Walk Anticipated Mode of Locomotion: Walk Walk 10 feet (QC): 4 Walk 50 ft with 2 Turns(QC): 4 Walk 150 ft (QC): 88 Distance: 50' Gait Assistive Device: FWW Comments/Gait Description steady, antalgic gait sequence Balance Sitting Static: Normal Sitting Dynamic: Normal Standing Static: Fair Standing Dynamic: Fair Assessment/Needs Patient will benefit from skilled PT to address functional strength and mobility to improve current LOF to safely return to home at maximum LOF. Rehab Potential: Fair PT Long-Term Goals Long-Term Goals PT Long-Term Goals Time Frame: Jan 09, 2023 Roll Left & Right (QC): 6 Sit to Lying (QC): 6 Lying-Sitting on Side/Bed(QC): 6 Sit to Stand (QC): 6 Chair/Xni-xx-Asowm Xfer(QC): 6 Toilet Transfer (QC): 6 Walk 10 feet (QC): 5 Walk 50ft with 2 Turns (QC): 5 Walk 150 ft (QC): 5 PT Plan Problem List Problem List: Activity Tolerance, Functional Strength, Safety, Balance, Gait, Transfer, Bed Mobility Treatment/Plan Treatment Plan: Continue Plan of Care Treatment Plan: Bed Mobility, Education, Functional Activity Natasha, Functional Strength, Gait, Safety, Therapeutic Exercise, Transfers Treatment Duration: Jan 09, 2023 Frequency: 11 times per week Estimated Hrs Per Day: .5 hour per day Patient and/or Family Agrees t: Yes Time Time In: 935 Time Out: 950 DATE: Dec 29, 2022 Total Billed Treatment Time: 15 Total Billed Treatment 1 visit EVModC 15 min PAWAN VELAZCO PT Dec 29, 2022 11:15
[2022-12-29 11:51] VITALS: BP 126/64
[2022-12-29] MEDS: [UNRECOGNIZED DRUG - REMARK] PO SCH (12:06)
[2022-12-29] MEDS: [UNRECOGNIZED DRUG - REMARK] PO SCH ×2 (12:07→20:25)
[2022-12-29] MEDS: [UNRECOGNIZED DRUG - REMARK] PO SCH (12:07)
[2022-12-29] MEDS: [UNRECOGNIZED DRUG - REMARK] PO SCH ×2 (12:07→20:27)
[2022-12-29] MEDS: [UNRECOGNIZED DRUG - REMARK] PO SCH (12:08)
[2022-12-29] MEDS: [UNRECOGNIZED DRUG - REMARK] PO SCH ×2 (12:10→20:28)
[2022-12-29] MEDS ORDERED: MORPHINE 30 MG PO PRN (13:00)
--- NOTE | 2022-12-29 13:38 | Physical Therapy Daily Note ---
PT Daily Note-Current Subjective Patient up in recliner and agrees to PT. Pain Numeric Pain Scale: 5-Moderate Pain Location: Left Location Body Site: Hip Pain Description: Acute Comment: meds issued as ordered Section J - Health Conditions 1. Rarely or not at all 2. Occasionally 3. Frequently 4. Almost constantly 8. Unable to answer Pain Effect on Sleep: 1 Pain Interference with Therapy: 1 Pain Interference w/Day-to-Day: 1 Transfers SCALE: Activities may be completed with or without assistive devices. 7-Gwvsdnrofj-onyptal completes the activity by him/herself with no assistance from a helper. 5-Set-up or Clean-up Assistance-helper sets up or cleans up; patient completes activity. [place] assists only prior to or following the activity. 4-Supervision or Touching Assistance-helper provides verbal cues and/or touching/steadying and/or contact guard assistance as patient completes activity. Assistance may be provided throughout the activity or intermittently. 3-Partial/Moderate Assistance-helper does LESS THAN HALF the effort. [place] lifts, holds or supports trunk or limbs, but provides less than half the effort. 2-Substantial/Maximal Assistance-helper does MORE THAN HALF the effort. [place] lifts or holds trunk or limbs and provides more than half the effort. 2-Moblboahj-hrecsg does ALL the effort. Patient does none of the effort to complete the activity. Or, the assistance of 2 or more helpers is required for the patient to complete the activity. If activity was not attempted, code reason: 7-Patient Refused. 9-Not Applicable-not attempted and the patient did not perform the activity before the current illness, exacerbation or injury. 10-Not Attempted due to Environmental Limitations-(lack of equipment, weather restraints, etc.). 88-Not Attempted due to Medical Conditions or Safety Concerns. Sit to Lying (QC): 4 Sit to Stand (QC): 4 Chair/Obh-yr-Apcou Xfer(QC): 4 Weight Bearing Right Lower Extremity: Right Full Weight Bearing Left Lower Extremity: Left Weight Bearing/Tolerated Gait Training Distance: 50' Walk 10 feet (QC): 4 Walk 50 ft with 2 Turns(QC): 4 Walk 150 ft (QC): 88 Gait Assistive Device: FWW steady, antalgic gait Exercises Seated Therapy Exercises: Ankle pumps, Long arc quads Seated Reps: 15 Assessment Patient tolerated treatment and is in bed with needs met. Patient progressing with treatment plan. PT Mcfp Goals Optometry Doctor Goals PT Mcfp Goals Time Frame: Jan 09, 2023 Roll Left & Right (QC): 6 Sit to Lying (QC): 6 Lying-Sitting on Side/Bed(QC): 6 Sit to Stand (QC): 6 Chair/Ptv-pi-Vetyi Xfer(QC): 6 Toilet Transfer (QC): 6 Walk 10 feet (QC): 5 Walk 50ft with 2 Turns (QC): 5 Walk 150 ft (QC): 5 PT Plan Treatment/Plan Treatment Plan: Continue Plan of Care Treatment Plan: Bed Mobility, Education, Functional Activity Natasha, Functional Strength, Gait, Safety, Therapeutic Exercise, Transfers Treatment Duration: Jan 09, 2023 Frequency: 11 times per week Estimated Hrs Per Day: .5 hour per day Patient and/or Family Agrees t: Yes Time Time In: 1315 Time Out: 1330 DATE: Dec 29, 2022 Total Billed Treatment Time: 15 Total Billed Treatment 1 visit GT 15 min PAWAN VELAZCO PT Dec 29, 2022 13:38
[2022-12-29 16:02] VITALS: BP 121/63
[2022-12-29 20:17] VITALS: BP 121/72
[2022-12-29] MEDS: APIXABAN 5 MG TABLET PO SCH (20:24)
[2022-12-29] MEDS: POTASSIUM CHLORIDE 10 MEQ TABLET PO SCH (20:27)
[2022-12-29] MEDS: [UNRECOGNIZED DRUG - REMARK] PO SCH (20:53)
[2022-12-29] MEDS: [UNRECOGNIZED DRUG - REMARK] PO SCH (20:53)
[2022-12-29] MEDS ORDERED: [UNRECOGNIZED DRUG - REMARK] PO PRN (21:00)
[2022-12-29] MEDS ORDERED: [UNRECOGNIZED DRUG - REMARK] PO PRN (21:00)
[2022-12-29] MEDS ORDERED: [UNRECOGNIZED DRUG - REMARK] PO PRN (21:00)
[2022-12-29] MEDS ORDERED: SENNOSIDES 8.6 MG TABLET PO PRN (21:30)
[2022-12-29] MEDS ORDERED: BISACODYL 5 MG TABLET PO PRN (21:30)
[2022-12-29] MEDS ORDERED: MELATONIN 10 MG TABLET PO PRN (21:30)
[2022-12-29 23:52] VITALS: BP 158/82
[2022-12-30 04:15] VITALS: BP 116/71
[2022-12-30] MEDS: KETOROLAC INJ 15 MG/ML VIAL IV SCH ×4 (05:53→23:18)
[2022-12-30 06:21] LABS: ALBUMIN 2.8 GM/DL (3.2-4.5); POTASSIUM 4.2 MMOL/L (3.6-5.0)
[2022-12-30 06:22] LABS: CALCIUM 8.5 MG/DL (8.5-10.1)
[2022-12-30 06:23] LABS: TOTAL PROTEIN 4.4 GM/DL (6.4-8.2)
[2022-12-30 06:25] LABS: BILIRUBIN,TOTAL 0.6 MG/DL (0.1-1.0)
[2022-12-30 06:27] LABS: CREATININE SERUM 1.64 MG/DL (0.60-1.30)
[2022-12-30 06:37] LABS: MEAN PLATELET VOLUME 10.6 fL (9.0-12.2); WHITE BLOOD COUNT 6.1 10^3/uL (4.3-11.0)
[2022-12-30 07:48] VITALS: BP 115/56
--- NOTE | 2022-12-30 09:20 | Physical Therapy Daily Note ---
PT Daily Note-Current Subjective Pt found lying in bed upon entry. Agreed to PT. Reports that her L hip feels stiff and sore today. Does not rate pain. Pain Section J - Health Conditions 1. Rarely or not at all 2. Occasionally 3. Frequently 4. Almost constantly 8. Unable to answer Pain Effect on Sleep: 1 Pain Interference with Therapy: 1 Pain Interference w/Day-to-Day: 1 Mental Status Patient Orientation: Person, Place Transfers SCALE: Activities may be completed with or without assistive devices. 4-Rsyvcajlbc-qfshupg completes the activity by him/herself with no assistance from a helper. 5-Set-up or Clean-up Assistance-helper sets up or cleans up; patient completes activity. [place] assists only prior to or following the activity. 4-Supervision or Touching Assistance-helper provides verbal cues and/or touching/steadying and/or contact guard assistance as patient completes activity. Assistance may be provided throughout the activity or intermittently. 3-Partial/Moderate Assistance-helper does LESS THAN HALF the effort. [place] lifts, holds or supports trunk or limbs, but provides less than half the effort. 2-Substantial/Maximal Assistance-helper does MORE THAN HALF the effort. [place] lifts or holds trunk or limbs and provides more than half the effort. 5-Gpbqvavok-ftiteo does ALL the effort. Patient does none of the effort to complete the activity. Or, the assistance of 2 or more helpers is required for the patient to complete the activity. If activity was not attempted, code reason: 7-Patient Refused. 9-Not Applicable-not attempted and the patient did not perform the activity before the current illness, exacerbation or injury. 10-Not Attempted due to Environmental Limitations-(lack of equipment, weather restraints, etc.). 88-Not Attempted due to Medical Conditions or Safety Concerns. Lying to Sitting/Side of Bed(Q: 6 Sit to Stand (QC): 6 Weight Bearing Right Lower Extremity: Right Full Weight Bearing Left Lower Extremity: Left Weight Bearing/Tolerated Gait Training Does the Patient Walk?: Yes Distance: 150 Walk 10 feet (QC): 4 Walk 50 ft with 2 Turns(QC): 4 Walk 150 ft (QC): 4 Gait Persons Needed: 1 Gait Assistive Device: FWW Assessment Current Status: Good Progress Pt performs lying to sitting and sit to stand transfer independently from the edge of bed. Ambulates /c use of FWW up to 150 feet before requesting to return to room. She displays a shortened step length on LLE versus R. Required SBA during ambulation due to strength deficits. No loss of balance demonstrated throughout visit. Pt left seated in recliner /c call light in place and all needs met. Continue to progress pt per POC. PT Alf Goals Alf Goals PT Alf Goals Time Frame: Jan 09, 2023 Roll Left & Right (QC): 6 Sit to Lying (QC): 6 Lying-Sitting on Side/Bed(QC): 6 Sit to Stand (QC): 6 Chair/Lno-fx-Jnggm Xfer(QC): 6 Toilet Transfer (QC): 6 Walk 10 feet (QC): 5 Walk 50ft with 2 Turns (QC): 5 Walk 150 ft (QC): 5 PT Plan Treatment/Plan Treatment Plan: Continue Plan of Care Treatment Plan: Bed Mobility, Education, Functional Activity Natasha, Functional Strength, Gait, Safety, Therapeutic Exercise, Transfers Treatment Duration: Jan 09, 2023 Frequency: 11 times per week Estimated Hrs Per Day: .5 hour per day Patient and/or Family Agrees t: Yes Time Time In: 0900 Time Out: 912 DATE: Dec 30, 2022 Total Billed Treatment Time: 13 Total Billed Treatment 1 visit GT x 1 JAYSON HERRERA CAR ICER Dec 30, 2022 09:20
[2022-12-30] MEDS: [UNRECOGNIZED DRUG - REMARK] PO SCH (09:41)
[2022-12-30] MEDS: [UNRECOGNIZED DRUG - REMARK] PO SCH ×2 (09:41→20:45)
[2022-12-30] MEDS: [UNRECOGNIZED DRUG - REMARK] PO SCH ×2 (09:41→20:46)
[2022-12-30] MEDS: [UNRECOGNIZED DRUG - REMARK] PO SCH (09:42)
[2022-12-30] MEDS: APIXABAN 5 MG TABLET PO SCH ×2 (09:43→20:49)
[2022-12-30] MEDS: [UNRECOGNIZED DRUG - REMARK] PO SCH ×2 (09:43→20:46)
[2022-12-30] MEDS: [UNRECOGNIZED DRUG - REMARK] PO SCH (09:44)
[2022-12-30] MEDS: [UNRECOGNIZED DRUG - REMARK] PO SCH (09:45)
[2022-12-30] MEDS: [UNRECOGNIZED DRUG - REMARK] PO SCH ×2 (09:45→20:48)
[2022-12-30] MEDS ORDERED: IRON SUCROSE 200 MG/10 ML VIAL IV SCH (11:00)
[2022-12-30] MEDS: oxyCODONE IMMEDIATE RELEASE 5 MG TABLET PO PRN ×2 (11:21→16:11)
[2022-12-30] MEDS: [UNRECOGNIZED DRUG - REMARK] PO PRN (11:22)
--- NOTE | 2022-12-30 11:35 | Occupational Ther Daily Note ---
OT Current Status-Daily Note Subjective Agreeable to OT, patient is up ad-herber w/FWW in room. Pain Numeric Pain Scale: 4 Location: Left Location Body Site: Thigh Mental Status/Objective Patient Orientation: Person, Place, Time, Situation ADL-Treatment Patient completes all LB garment management and toilet transfer/hygiene ad herber w/ OT observation. Patient use of FWW appropriate w/ transfers. Therapy Code Descriptions/Definitions Functional [place] Measure: 0=Not Assessed/NA 4=Minimal Assistance 1=Total Assistance 5=Supervision or Setup 2=Maximal Assistance 6=Modified [place] 3=Moderate Assistance 7=Complete IndependenceSCALE: Activities may be completed with or without assistive devices. 5-Qzkuzfwhuz-njurnlx completes the activity by him/herself with no assistance from a helper. 5-Set-up or Clean-up Assistance-helper sets up or cleans up; patient completes activity. [place] assists only prior to or following the activity. 4-Supervision or Touching Assistance-helper provides verbal cues and/or touching/steadying and/or contact guard assistance as patient completes activity. Assistance may be provided throughout the activity or intermittently. 3-Partial/Moderate Assistance-helper does LESS THAN HALF the effort. [place] lifts, holds or supports trunk or limbs, but provides less than half the effort. 2-Substantial/Maximal Assistance-helper does MORE THAN HALF the effort. [place] lifts or holds trunk or limbs and provides more than half the effort. 7-Ncrzholwu-ziwozp does ALL the effort. Patient does none of the effort to complete the activity. Or, the assistance of 2 or more helpers is required for the patient to complete the activity. If activity was not attempted, code reason: 7-Patient Refused. 9-Not Applicable-not attempted and the patient did not perform the activity before the current illness, exacerbation or injury. 10-Not Attempted due to Environmental Limitations-(lack of equipment, weather restraints, etc.). 88-Not Attempted due to Medical Conditions or Safety Concerns. Eating (QC): 6 Oral Hygiene (QC): 5 Shower/Bathe Self (QC): 7 Upper Body Dressing (QC): 5 Lower Body Dressing (QC): 5 (VCs for dressing sequence, retrieval of object supervision) On/Off Footwear: 6 Toileting Hygiene (QC): 6 Toilet Transfer (QC): 5 Education OT Patient Education: Correct positioning, Modified ADL techniques, Progress toward Goal/Update tx plan, Purpose of tx/functional activities, Reviewed pr ecautions, Rehab process, Safety issues, Transfer techniques, Use of adapted equipment Teaching Recipient: Patient Teaching Methods: Demonstration Response to Teaching: Return Demonstration OT Site Identification Specialist Goals Site Identification Specialist Goals Eating (QC): 6 Oral Hygiene (QC): 6 Toileting Hygiene (QC): 6 Shower/Bathe Self (QC): 6 Upper Body Dressing (QC): 6 Lower Body Dressing (QC): 6 On/Off Footwear (QC): 6 1=Demonstrate adherence to instructed precautions during ADL tasks. 2=Patient will verbalize/demonstrate understanding of assistive devices/modifications for ADL. 3=Patient will improve strength/tolerance for activity to enable patient to perform ADL's. OT Education/Plan Problem List/Assessment Assessment: Decreased Activ Tolerance, Impaired I ADL's Discharge Recommendations Plan/Recommendations: Continue POC Treatment Plan/Plan of Care Treatment,Training & Education: Yes Patient would benefit from OT for education, treatment and training to promote independence in ADL's, mobility, safety and/or upper extremity function for ADL's. Plan of Care: ADL Retraining, Functional Mobility, Group Exercise/Act as Ind, UE Funct Exercise/Act Treatment Duration: Jan 01, 2023 Frequency: 3 times per week Estimated Hrs Per Day: .25 hour per day Agreement: Yes Rehab Potential: Fair Time Start Time: 10:00 Stop Time: 10:20 DATE: Dec 30, 2022 Total Time Billed (hr/min): 20 Billed Treatment Time ADL 20 min HANNAH MUELLER OT Dec 30, 2022 11:35
--- NOTE | 2022-12-30 11:41 | Progress Note - Hospitalist ---
Subjective HPI/CC On Admission Date Seen by Provider: Dec 30, 2022 Time Seen by Provider: 13:00 Subjective/Events-last exam Patient doing a lot better Inpatient rehab tomorrow Pain is well-controlled Overdid it walking today Objective Exam Vital Signs Vital Signs Date Time Temp Pulse Resp B/P (MAP) Pulse Ox O2 Delivery O2 Flow Rate FiO2 12/30/22 15:41 36.8 101 16 113/74 (87) 95 Room Air 12/30/22 00:12 21 12/29/22 11:51 2.00 Capillary Refill : Less Than 3 SecondsLess Than 3 Seconds General Appearance: No Apparent Distress, WD/WN, Chronically ill Respiratory: Lungs Clear Cardiovascular: Regular Rate, Rhythm Results/Procedures Lab Laboratory Tests 12/30/22 05:50 Patient resulted labs reviewed. Assessment/Plan Assessment and Plan Assess & Plan/Chief Complaint Assessment: Left femur fracture Hypertension Postop anemia from acute blood loss Debility Plan: Pain control Inpatient rehab tomorrow Bowel regimen AYAKA HAMM DO Dec 30, 2022 11:41
[2022-12-30 11:51] VITALS: BP 117/66
[2022-12-30] MEDS ORDERED: SCOPOLAMINE 1.5 MG PATCH TOP SCH (15:00)
[2022-12-30 15:41] VITALS: BP 113/74
[2022-12-30 19:21] VITALS: BP 100/65
[2022-12-30] MEDS: [UNRECOGNIZED DRUG - REMARK] PO SCH (20:47)
[2022-12-30] MEDS: POTASSIUM CHLORIDE 10 MEQ TABLET PO SCH (20:47)
[2022-12-30 23:26] VITALS: BP 134/65
[2022-12-31] MEDS: oxyCODONE IMMEDIATE RELEASE 5 MG TABLET PO PRN ×2 (02:14→09:30)
[2022-12-31 03:28] VITALS: BP 93/58
--- NOTE | 2022-12-31 05:21 | Discharge Summary ---
Diagnosis/Chief Complaint Date of Admission Dec 30, 2022 at 13:15 Date of Discharge Discharge Date: Dec 31, 2022 Discharge Diagnosis Assessment: Left femur fracture Hypertension Postop anemia from acute blood loss requiring 1 unit of blood on 12/31/22 Debility Plan: Pain control Inpatient rehab today Bowel regimen Discharge Summary Discharge Physical Examination Allergies: Coded Allergies: Sulfa (Sulfonamide Antibiotics) (Verified Allergy, Unknown, hives, 05/24/18) latex (Verified Allergy, Unknown, anaphylaxis, 05/24/18) midazolam (Verified Allergy, Unknown, pt has had xanax and ativan in past, 12/10/22) vancomycin (Verified Allergy, Unknown, hives, 05/24/18) Uncoded Allergies: "SEEDS" (Adverse Reaction, Unknown, 06/18/22) CAN NOT HAVE SEEDS D/T DIVERTICULITIS PER PT Vitals & I&Os Vital Signs Date Time Temp Pulse Resp B/P (MAP) Pulse Ox O2 Delivery O2 Flow Rate FiO2 12/31/22 11:40 37.2 70 16 111/72 (85) 96 Room Air 12/31/22 03:28 0.00 0.00 12/30/22 00:12 21 General Appearance: Alert, Oriented X3, Cooperative Respiratory: Clear to Auscultation Cardiovascular: Regular Rate Psych/Mental Status: Mental Status NL Hospital Course Was the Problem List Reviewed?: Yes Uneventful hospital course after she suffered a left femur fracture and underwent an uncomplicated repair and course after. Pain was well controlled and blood transfusion was required for hgb 6.2 and she was ready for DC to [facility]U Labs (last 24 hrs) Laboratory Tests 12/28/22 06:20: White Blood Count 8.2, Red Blood Count 2.67L, Hemoglobin 9.7L, Hematocrit 30L, Mean Corpuscular Volume 111H, Mean Corpuscular Hemoglobin 36H, Mean Corpuscular Hemoglobin Concent 33, Red Cell Distribution Width 13.7, Platelet Count 88L, Mean Platelet Volume 9.6, Immature Granulocyte % (Auto) 1, Neutrophils (%) (Auto) 82H, Lymphocytes (%) (Auto) 9L, Monocytes (%) (Auto) 7, Eosinophils (%) (Auto) 1, Basophils (%) (Auto) 0, Neutrophils # (Auto) 6.8, Lymphocytes # (Auto) 0.7L, Monocytes # (Auto) 0.6, Eosinophils # (Auto) 0.1, Basophils # (Auto) 0.0, Immature Granulocyte # (Auto) 0.1, Sodium Level 137, Potassium Level 3.6, Chlori de Level 106, Carbon Dioxide Level 24, Anion Gap 7, Blood Urea Nitrogen 16, Creatinine 1.36H, Estimat Glomerular Filtration Rate 42, BUN/Creatinine Ratio 12, Glucose Level 138H, Calcium Level 8.3L, Corrected Calcium 8.9, Total Bilirubin 0.5, Aspartate Amino Transf (AST/SGOT) 19, Alanine Aminotransferase (ALT/SGPT) 13, Alkaline Phosphatase 77, Total Protein 5.1L, Albumin 3.3, Smear Scan YES 12/29/22 05:00: White Blood Count 8.2, Red Blood Count 2.12L, Hemoglobin 7.7#L, Hematocrit 23L, Mean Corpuscular Volume 109H, Mean Corpuscular Hemoglobin 36H, Mean Corpuscular Hemoglobin Concent 33, Red Cell Distribution Width 13.6, Platelet Count 89L, Mean Platelet Volume 10.5, Sodium Level 135, Potassium Level 4.5, Chloride Level 105, Carbon Dioxide Level 26, Anion Gap 4L, Blood Urea Nitrogen 23H, Creatinine 1.41H, Estimat Glomerular Filtration Rate 40, BUN/Creatinine Ratio 16, Glucose Level 104, Calcium Level 7.7L, Corrected Calcium 8.7, Total Bilirubin 0.5, Asp artate Amino Transf (AST/SGOT) 27, Alanine Aminotransferase (ALT/SGPT) 21, Alkaline Phosphatase 60, Total Protein 4.1L, Albumin 2.7L, Percent Immature Platelet Fraction 2.8 12/29/22 06:20: Iron Level 54, Total Iron Binding Capacity 197L, Unsaturated Iron Binding Capacity 143, Transferrin % Saturation 27, Ferritin 420.6H 12/30/22 05:50: White Blood Count 6.1, Red Blood Count 2.20L, Hemoglobin 8.0L, Hematocrit 24L, Mean Corpuscular Volume 110H, Mean Corpuscular Hemoglobin 36H, Mean Corpuscular Hemoglobin Concent 33, Red Cell Distribution Width 14.0, Platelet Count 96L, Mean Platelet Volume 10.6, Sodium Level 140, Potassium Level 4.2, Chloride Level 108H, Carbon Dioxide Level 27, Anion Gap 5, Blood Urea Nitrogen 22H, Creatinine 1.64H, Estimat Glomerular Filtration Rate 33, BUN/Creatinine Ratio 13, Glucose Level 93, Calcium Level 8.5, Corrected Calcium 9.5, Total Bilirubin 0.6, Aspartate Amino Transf (AST/SGOT) 12, Alanine Aminotransferase (ALT/SGPT) 9, Alkaline Phosphatase 56, Total Protein 4.4L, Albumin 2.8L, Percent Immature Platelet Fraction 2.7 12/30/22 13:30: Vitamin B12 Level 388 12/31/22 05:40: White Blood Count 3.9L, Red Blood Count 1.73L, Hemoglobin 6.3#*L, Hematocrit 19*L, Mean Corpuscular Volume 110H, Mean Corpuscular Hemoglobin 36H, Mean Corpuscular Hemoglobin Concent 33, Red Cell Distribution Width 14.1, Platelet Count 79L, Mean Platelet Volume 10.6, Percent Immature Platelet Fraction 2.2, Sodium Level 133L, Potassium Level 4.1, Chloride Level 104, Carbon Dioxide Level 25, Anion Gap 4L, Blood Urea Nitrogen 18, Creatinine 1.86H, Estimat Glomerular Filtration Rate 29, BUN/Creatinine Ratio 10, Glucose Level 116H, Calcium Level 7.8L, Corrected Calcium 9.1, Total Bilirubin 0.4, Aspartate Amino Transf (AST/SGOT) 7, Alanine Aminotransferase (ALT/SGPT) 6, Alkaline Phosphatase 47, Total Protein 3.8L, Albumin 2.4L 12/31/22 10:13: Urine Color YELLOW, Urine Clarity CLEAR, Urine pH 5.5, Urine Specific Leon >=1.030, Urine Protein NEGATIVE, Urine Glucose (UA) NEGATIVE, Urine Ketones NEGATIVE, Urine Nitrite NEGATIVE, Urine Bilirubin NEGATIVE, Urine Urobilinogen 0.2, Urine Leukocyte Esterase 1+H, Urine RBC (Auto) NEGATIVE, Urine RBC NONE, Urine WBC 5-10H, Urine Squamous Epithelial Cells NONE, Urine Crystals NONE, Urine Bacteria LARGEH, Urine Casts NONE, Urine Mucus NEGATIVE, Urine Culture Indicated YES Pending Labs Laboratory Tests 12/28/22 06:20: White Blood Count 8.2, Red Blood Count 2.67, Hemoglobin 9.7, Hematocrit 30, Mean Corpuscular Volume 111, Mean Corpuscular Hemoglobin 36, Mean Corpuscular Hemoglobin Concent 33, Red Cell Distribution Width 13.7, Platelet Count 88, Mean Platelet Volume 9.6, Immature Granulocyte % (Auto) 1, Neutrophils (%) (Auto) 82, Lymphocytes (%) (Auto) 9, Monocytes (%) (Auto) 7, Eosinophils (%) (Auto) 1, Basophils (%) (Auto) 0, Neutrophils # (Auto) 6.8, Lymphocytes # (Auto) 0.7, Monocytes # (Auto) 0.6, Eosinophils # (Auto) 0.1, Basophils # (Auto) 0.0, Immature Granulocyte # (Auto) 0.1, Sodium Level 137, Potassium Level 3.6, Chloride Level 106, Carbon Dioxide Level 24, Anion Gap 7, Blood Urea Nitrogen 16, Creatinine 1.36, Estimat Glomerular Filtration Rate 42, BUN/Creatinine Ratio 12, Glucose Level 138, Calcium Level 8.3, Corrected Calcium 8.9, Total Bilirubin 0.5, Aspartate Amino Transf (AST/SGOT) 19, Alanine Aminotransferase (ALT/SGPT) 13, Alkaline Phosphatase 77, Total Protein 5.1, Albumin 3.3, Smear Scan YES 12/29/22 05:00: White Blood Count 8.2, Red Blood Count 2.12, Hemoglobin 7.7, Hematocrit 23, Mean Corpuscular Volume 109, Mean Corpuscular Hemoglobin 36, Mean Corpuscular H emoglobin Concent 33, Red Cell Distribution Width 13.6, Platelet Count 89, Mean Platelet Volume 10.5, Sodium Level 135, Potassium Level 4.5, Chloride Level 105, Carbon Dioxide Level 26, Anion Gap 4, Blood Urea Nitrogen 23, Creatinine 1.41, Estimat Glomerular Filtration Rate 40, BUN/Creatinine Ratio 16, Glucose Level 104, Calcium Level 7.7, Corrected Calcium 8.7, Total Bilirubin 0.5, Aspartate Amino Transf (AST/SGOT) 27, Alanine Aminotransferase (ALT/SGPT) 21, Alkaline Phosphatase 60, Total Protein 4.1, Albumin 2.7, Percent Immature Platelet Fraction 2.8 12/29/22 06:20: Iron Level 54, Total Iron Binding Capacity 197, Unsaturated Iron Binding Capacity 143, Transferrin % Saturation 27, Ferritin 420.6 12/30/22 05:50: White Blood Count 6.1, Red Blood Count 2.20, Hemoglobin 8.0, Hematocrit 24, Mean Corpuscular Volume 110, Mean Corpuscular Hemoglobin 36, Mean Corpuscular Hemoglobin Concent 33, Red Cell Distribution Width 14.0, Platelet Count 96, Mean Platelet Volume 10.6, Sodium Level 140, Potassium Level 4.2, Chloride Level 108, Carbon Dioxide Level 27, Anion Gap 5, Blood Urea Nitrogen 22, Creatinine 1.64, Estimat Glomerular Filtration Rate 33, BUN/Creatinine Ratio 13, Glucose Level 93, Calcium Level 8.5, Corrected Calcium 9.5, Total Bilirubin 0.6, Aspartate Amino Transf (AST/SGOT) 12, Alanine Aminotransferase (ALT/SGPT) 9, Alkaline Phosphatase 56, Total Protein 4.4, Albumin 2.8, Percent Immature Platelet Fraction 2.7 12/30/22 13:30: Vitamin B12 Level 388 12/31/22 05:40: White Blood Count 3.9, Red Blood Count 1.73, Hemoglobin 6.3, Hematocrit 19, Mean Corpuscular Volume 110, Mean Corpuscular Hemoglobin 36, Mean Corpuscular Hemoglobin Concent 33, Red Cell Distribution Width 14.1, Platelet Count 79, Mean Platelet Volume 10.6, Percent Immature Platelet Fraction 2.2, Sodium Level 133, Potassium Level 4.1, Chloride Level 104, Carbon Dioxide Level 25, Anion Gap 4, Blood Urea Nitrogen 18, Creatinine 1.86, Estimat Glomerular Filtration Rate 29, BUN/Creatinine Ratio 10, Glucose Level 116, Calcium Level 7.8, Corrected Calcium 9.1, Total Bilirubin 0.4, Aspartate Amino Transf (AST/SGOT) 7, Alanine Aminotransferase (ALT/SGPT) 6, Alkaline Phosphatase 47, Total Protein 3.8, Albumin 2.4 12/31/22 10:13: Urine Color YELLOW, Urine Clarity CLEAR, Urine pH 5.5, Urine Specific Leon >=1.030, Urine Protein NEGATIVE, Urine Glucose (UA) NEGATIVE, Urine Ketones NEGATIVE, Urine Nitrite NEGATIVE, Urine Bilirubin NEGATIVE, Urine Urobilinogen 0.2, Urine Leukocyte Esterase 1+, Urine RBC (Auto) NEGATIVE, Urine RBC NONE, Urine WBC 5-10, Urine Squamous Epithelial Cells NONE, Urine Crystals NONE, Urine Bacteria LARGE, Urine Casts NONE, Urine Mucus NEGATIVE, Urine Culture Indicated YES Discharge Home Medications: Active Scripts Active Eliquis (Apixaban) 5 Mg Tablet 5 Mg PO BID 30 Days Reported Morphine Sulfate IR Tablet (Morphine Sulfate) 30 Mg Tablet 30 Mg PO DAILY PRN Darzalex (Daratumumab) 400 Mg/20 Ml (20 Mg/Ml) Vial 1,800 Mg IJ EVERY 28 DAYS Melatonin 5 Mg Tablet 10 Mg PO HS Docusate Sodium 100 Mg Tablet 400 Mg PO DAILY PRN [place] Thyroid (Thyroid,Pork) 15 Mg Tablet 15 Mg PO DAILY Gabapentin 600 Mg Tablet 600 Mg PO HS Calcium + D3 ER Tablet (Calcium Carb & Citrate/Vit D3) 600MG-12.5 Tablet.er 2 Each PO BID ALPRAZolam 0.25 Mg Tablet 0.25 Mg PO TID PRN Ambien (Zolpidem Tartrate) 5 Mg Tablet 5 Mg PO HS PRN 2ND LINE Rosuvastatin Calcium 10 Mg Tablet 10 Mg PO DAILY K-Tab ER (Potassium Chloride) 10 Meq Tablet.er 10 Meq PO HS K-Tab ER (Potassium Chloride) 10 Meq Tablet.er 20 Meq PO DAILY TAKES 2 (10MEQ) TABS Morphine Sulfate ER (Morphine Sulfate) 30 Mg Tablet.er 30 Mg PO Q12H Transderm-Scop (Scopolamine) 1 Mg/3 Day Patch.td72 1 Patch TD EVERY 72 HOURS Ondansetron Odt (Ondansetron) 8 Mg Tab.rapdis 8 Mg PO TID PRN Temazepam 15 Mg Capsule 15 Mg PO HS PRN 1ST LINE Pantoprazole Sodium 40 Mg Tablet.dr 40 Mg PO DAILY Acyclovir 400 Mg Tablet 400 Mg PO BID K-Phos Original (Potassium Phosphate,Monobasic) 500 Mg Tablet.alba 1,000 Mg PO BID TAKES 2 (500MG) TABS Instructions to patient/family Please see electronic discharge instructions given to patient. AYAKA HAMM DO Dec 31, 2022 05:21
[2022-12-31] MEDS: KETOROLAC INJ 15 MG/ML VIAL IV SCH ×2 (05:38→10:51)
[2022-12-31 05:55] LABS: MEAN PLATELET VOLUME 10.6 fL (9.0-12.2); WHITE BLOOD COUNT 3.9 10^3/uL (4.3-11.0)
[2022-12-31 06:09] LABS: ALBUMIN 2.4 GM/DL (3.2-4.5); POTASSIUM 4.1 MMOL/L (3.6-5.0)
[2022-12-31 06:10] LABS: CALCIUM 7.8 MG/DL (8.5-10.1)
[2022-12-31 06:12] LABS: TOTAL PROTEIN 3.8 GM/DL (6.4-8.2)
[2022-12-31 06:13] LABS: BILIRUBIN,TOTAL 0.4 MG/DL (0.1-1.0)
[2022-12-31 06:15] LABS: CREATININE SERUM 1.86 MG/DL (0.60-1.30)
[2022-12-31 06:23] LABS: HEMOGLOBIN 6.3 g/dL (11.5-16.0)
[2022-12-31] MEDS ORDERED: NS IV 500 ML 500 ML IV SCH ×2 (06:45)
[2022-12-31 07:48] VITALS: BP 110/71
[2022-12-31] MEDS: [UNRECOGNIZED DRUG - REMARK] PO SCH (08:28)
[2022-12-31] MEDS: [UNRECOGNIZED DRUG - REMARK] PO SCH (08:29)
[2022-12-31] MEDS: [UNRECOGNIZED DRUG - REMARK] PO SCH (08:29)
[2022-12-31] MEDS: [UNRECOGNIZED DRUG - REMARK] PO SCH (08:30)
[2022-12-31] MEDS: [UNRECOGNIZED DRUG - REMARK] PO PRN (08:31)
[2022-12-31] MEDS: [UNRECOGNIZED DRUG - REMARK] PO SCH (08:32)
[2022-12-31] MEDS: [UNRECOGNIZED DRUG - REMARK] PO SCH (08:33)
[2022-12-31] MEDS: [UNRECOGNIZED DRUG - REMARK] PO SCH (08:40)
[2022-12-31] MEDS: [UNRECOGNIZED DRUG - REMARK] PO SCH (08:47)
--- NOTE | 2022-12-31 08:50 | Physical Therapy Daily Note ---
PT Daily Note-Current Subjective Patient agrees to PT. Pain Numeric Pain Scale: 5-Moderate Pain Location: Left Location Body Site: Hip Pain Description: Acute Section J - Health Conditions 1. Rarely or not at all 2. Occasionally 3. Frequently 4. Almost constantly 8. Unable to answer Pain Effect on Sleep: 1 Pain Interference with Therapy: 1 Pain Interference w/Day-to-Day: 1 Transfers SCALE: Activities may be completed with or without assistive devices. 0-Hiwybxjkgy-fluufez completes the activity by him/herself with no assistance from a helper. 5-Set-up or Clean-up Assistance-helper sets up or cleans up; patient completes activity. [place] assists only prior to or following the activity. 4-Supervision or Touching Assistance-helper provides verbal cues and/or touching/steadying and/or contact guard assistance as patient completes activity. Assistance may be provided throughout the activity or intermittently. 3-Partial/Moderate Assistance-helper does LESS THAN HALF the effort. Hurt lifts, holds or supports trunk or limbs, but provides less than half the effort. 2-Substantial/Maximal Assistance-helper does MORE THAN HALF the effort. Hurt lifts or holds trunk or limbs and provides more than half the effort. 0-Yfmmuiswt-irqkgi does ALL the effort. Patient does none of the effort to complete the activity. Or, the assistance of 2 or more helpers is required for the patient to complete the activity. If activity was not attempted, code reason: 7-Patient Refused. 9-Not Applicable-not attempted and the patient did not perform the activity before the current illness, exacerbation or injury. 10-Not Attempted due to Environmental Limitations-(lack of equipment, weather restraints, etc.). 88-Not Attempted due to Medical Conditions or Safety Concerns. Sit to Stand (QC): 4 Chair/Jmb-lc-Hzdkt Xfer(QC): 4 Weight Bearing Right Lower Extremity: Right Full Weight Bearing Left Lower Extremity: Left Weight Bearing/Tolerated Gait Training Distance: 200' Walk 10 feet (QC): 4 Walk 50 ft with 2 Turns(QC): 4 Walk 150 ft (QC): 4 Gait Assistive Device: FWW slow, reciprocal pattern/antalgic Exercises Seated Therapy Exercises: Long arc quads Seated Reps: 15 Assessment Patient tolerated treatment well and remains up in recliner with needs met. Per report, patient will transfer to ARU on this date. PT Millinery Designer Goals Millinery Designer Goals PT Shelter Goals Time Frame: Jan 09, 2023 Roll Left & Right (QC): 6 Sit to Lying (QC): 6 Lying-Sitting on Side/Bed(QC): 6 Sit to Stand (QC): 6 Chair/Myw-xg-Urrqz Xfer(QC): 6 Toilet Transfer (QC): 6 Walk 10 feet (QC): 5 Walk 50ft with 2 Turns (QC): 5 Walk 150 ft (QC): 5 PT Plan Treatment/Plan Treatment Plan: Continue Plan of Care Treatment Plan: Bed Mobility, Education, Functional Activity Natasha, Functional Strength, Gait, Safety, Therapeutic Exercise, Transfers Treatment Duration: Jan 09, 2023 Frequency: 11 times per week Estimated Hrs Per Day: .5 hour per day Patient and/or Family Agrees t: Yes Time Time In: 801 Time Out: 811 DATE: Dec 31, 2022 Total Billed Treatment Time: 10 Total Billed Treatment 1 visit FA 10 min PAWAN VELAZCO PT Dec 31, 2022 08:50
[2022-12-31 09:51] VITALS: BP 113/71
[2022-12-31] MEDS: APIXABAN 5 MG TABLET PO SCH (09:53)
[2022-12-31 10:09] VITALS: BP 124/76
[2022-12-31] MEDS ORDERED: CYANOCOBALAMIN 1000 MCG/ML 1 ML VIAL IM NR (10:30)
[2022-12-31 11:07] LABS: BACTERIA,URINE LARGE /HPF; BILIRUBIN,URINE NEGATIVE (NEGATIVE); CLARITY,URINE CLEAR; COLOR,URINE YELLOW; GLUCOSE, URINE (UA) NEGATIVE (NEGATIVE); KETONES,URINE NEGATIVE (NEGATIVE); LEUKOCYTE ESTERASE ,URINE 1+ (NEGATIVE); NITRITE,URINE NEGATIVE (NEGATIVE); PH,URINE 5.5 (5-9); PROTEIN,URINE NEGATIVE (NEGATIVE)
[2022-12-31 11:40] VITALS: BP 111/72
[2022-12-31] MEDS ORDERED: MORPHINE 30 MG PO SCH (21:00)
[2022-12-31] MEDS ORDERED: ACYCLOVIR 400 MG CAPSULE/TABLET PO SCH (21:00)
[2023-01-02] MEDS ORDERED: SCOPOLAMINE PATCH REMOVAL TP SCH (14:59)
== END 2022-12-31 12:50 | DRG 481 ==
LOC: EDUNIT# 05:12 → ER 05:13 → 4TH 07:47 → OBSVTOIN 12-30 13:15
PROVIDERS: ADMIT Family Medicine; ATTEND Internal Medicine
PROC: 0QS736Z Reposition Left Upper Femur with Intramedullary Internal Fixation Device, Percutaneous Approach (ICD-10-PCS; principal; 2022-12-28 09:33)
DX: S72.145D Nondisplaced intertrochanteric fracture of left femur, subsequent encounter for closed fracture with routine healing (principal); C90.00 Multiple myeloma not having achieved remission; D62 Acute posthemorrhagic anemia; E78.00 Pure hypercholesterolemia, unspecified; I10 Essential (primary) hypertension; F41.9 Anxiety disorder, unspecified; D69.6 Thrombocytopenia, unspecified; Z79.01 Long term (current) use of anticoagulants; Z79.899 Other long term (current) drug therapy; Z88.2 Allergy status to sulfonamides; Z91.09 Other allergy status, other than to drugs and biological substances; W01.0XXD Fall on same level from slipping, tripping and stumbling without subsequent striking against object, subsequent encounter
CPT/HCPCS: 36415; 70450; 71045; 72192; 76000; 80053; 81000; 82607; 82728; 83540; 83550; 85025; 85027; 86850; 86900; 86901; 86920; 87077; 87088; 87186; 93005; 94760; G0378

== ENCOUNTER 2022-12-31 13:00 | Inpatient (IN) | payer MEDICARE, OTHER ==
[~2022-12-31] VITALS: Ht 154.5 cm; Wt 55.0 kg
--- NOTE | 2022-12-31 05:23 | PM&R Post Admission Assessment ---
PM&R HP Date of Visit: Dec 31, 2022 Time of Visit: 13:30 History of Present Illness CC: Left hip fracture recovering HPI: This is a 72yoWF clinic patient of [facility] and Dr Thorne who treats her for MM on chemotherapy who presents to the ARU following a left hip fracture and uncomplicated repair. Pain is controlled. She required 1 unit of blood transfusion today prior to admit to ARU. Symptoms of UTI reported by patient so in/out cath initiated and revealed an early UTI so will place on empiric abx and AZO. She is doing much better now and will be monitored closely to regain function and return home. Past Mwhyvsa-Onplfd-Dxgywe Hx Past Med/Social Hx: Reviewed Nursing Past Med/Soc Hx, Reviewed and Corrections made Patient Social History Marrital Status: Employed/Student: retired Alcohol Use: Denies Use Smoking Status: Former Smoker 2nd Hand Smoke Exposure: No Recent Hopitalizations: No Immunizations Up To Date Date of Pneumonia Vaccine: Sep 29, 2017 Date of Influenza Vaccine: Nov 29, 2018 Seasonal Allergies Seasonal Allergies: No Past Medical History Surgeries: Appendectomy, Bowel Surgery, Gallbladder, Hysterectomy, Orthopedic Cardiac: Hypertension Genitourinary: Bladder Infection Endocrine: Hypothyroidsim Cancer: Leukemia Did You Recieve Any Treatments: Yes What Type of Treatment Did You: Chemotherapy History of Blood Disorders: Yes Family History Cancer, Stroke PM&R Allergy/Meds/Data Review Allergies Coded Allergies: Sulfa (Sulfonamide Antibiotics) (Verified Allergy, Unknown, hives, 05/24/18) latex (Verified Allergy, Unknown, anaphylaxis, 05/24/18) midazolam (Verified Allergy, Unknown, pt has had xanax and ativan in past, 12/10/22) vancomycin (Verified Allergy, Unknown, hives, 05/24/18) Uncoded Allergies: "SEEDS" (Adverse Reaction, Unknown, 06/18/22) CAN NOT HAVE SEEDS D/T DIVERTICULITIS PER PT Home Medications Scheduled Acyclovir (Acyclovir), 400 MG PO BID, (Reported) Apixaban (Eliquis), 5 MG PO BID Calcium Carb & Citrate/Vit D3 (Calcium + D3 ER Tablet), 2 EACH PO BID, (Reported) Daratumumab (Darzalex), 1,800 MG IJ EVERY 28 DAYS, (Reported) Gabapentin (Gabapentin), 600 MG PO HS, (Reported) Melatonin (Melatonin), 10 MG PO HS, (Reported) Morphine Sulfate (Morphine Sulfate ER), 30 MG PO Q12H, (Reported) Pantoprazole Sodium (Pantoprazole Sodium), 40 MG PO DAILY, (Reported) Potassium Chloride (K-Tab ER), 20 MEQ PO DAILY, (Reported) Potassium Chloride (K-Tab ER), 10 MEQ PO HS, (Reported) Potassium Phosphate,Monobasic (K-Phos Original), 1,000 MG PO BID, (Reported) Rosuvastatin Calcium (Rosuvastatin Calcium), 10 MG PO DAILY, (Reported) Scopolamine (Transderm-Scop), 1 PATCH TD EVERY 72 HOURS, (Reported) Thyroid,Pork ([place] Thyroid), 15 MG PO DAILY, (Reported) Scheduled PRN ALPRAZolam (ALPRAZolam), 0.25 MG PO TID PRN for ANXIETY, (Reported) Docusate Sodium (Docusate Sodium), 400 MG PO DAILY PRN for CONSTIPATION-1ST LINE, (Reported) Morphine Sulfate (Morphine Sulfate IR Tablet), 30 MG PO DAILY PRN for PAIN- SEVERE (8-10), (Reported) Ondansetron (Ondansetron Odt), 8 MG PO TID PRN for NAUSEA/VOMITING-1ST LINE, (Reported) Temazepam (Temazepam), 15 MG PO HS PRN for SLEEP, (Reported) Zolpidem Tartrate (Ambien), 5 MG PO HS PRN for SLEEP, (Reported) Discontinued Medications Morphine Sulfate (Morphine Sulfate IR Tablet), 15 MG PO DAILY PRN for PAIN- SEVERE (8-10), (Reported) Discontinued Reason: No Longer Taking Current Medications Current Medications Reviewed Review of Systems Constitutional: see HPI, malaise, weakness EENTM: no symptoms reported Respiratory: no symptoms reported Cardiovascular: no symptoms reported Gastrointestinal: no symptoms reported Genitourinary: no symptoms reported Musculoskeletal: back pain, joint pain Skin: no symptoms reported Psychiatric/Neurological: Depressed All Other Systems Reviewed Negative Unless Noted: Yes Physical Exam Physical Exam Vital Signs Capillary Refill : Height, Weight, BMI Height: 5'1.00" Weight: 127lbs. oz. 57.217607ds; 21.54 BMI Method:Stated General Appearance: No Apparent Distress, WD/WN, Chronically ill Eyes: Bilateral Eye Normal Inspection, Bilateral Eye PERRL HEENT: PERRL/EOMI, Normal ENT Inspection, Pharynx Normal Neck: Full Range of Motion, Normal Inspection, Non Tender, Supple, Carotid Bruit Respiratory: Chest Non Tender, Lungs Clear, Normal Breath Sounds, No Accessory Muscle Use, No Respiratory Distress Cardiovascular: Regular Rate, Rhythm, No Edema, No Gallop, No JVD, No Murmur, Normal Peripheral Pulses Gastrointestinal: Normal Bowel Sounds, No Organomegaly, No Pulsatile Mass, Non Tender, Soft Back: Normal Inspection, No CVA Tenderness, No Vertebral Tenderness Extremity: Normal Capillary Refill, Normal Inspection, Normal Range of Motion (except left leg), Non Tender, No Calf Tenderness, No Pedal Edema Neurologic/Psychiatric: Alert, Oriented x3, Normal Mood/Affect, drug enforcement agent II-XII Norm as Tested, Abnormal Gait, Motor Weakness (left leg) Skin: Normal Color, Warm/Dry Lymphatic: No Adenopathy PM&R Medical Assessment & Plan REHAB/MEDICAL ASSESSMENT AND PLAN: REHAB IMPAIRMENT GROUP: s/p unilateral hip fracture ETIOLOGIC DIAGNOSIS: Acute intertrochanteric fracture of proximal left femur The comorbidities that impact the patients function and/or functional outcome by: MM on chemo, HTN, OAC, Post op UTI, post op acute blood loss anemia REHAB PLAN: The patient is being admitted to our comprehensive inpatient rehabilitation facility and can tolerate the intensity of service consisting of at least: 180 minutes of therapy a day, 5 out of 7 days a week Rehab treatment will consist of: PT OT will focus on regaining function with the use of AD in order to increase stamina of ambulation and increase independence in ADL's in order to return to home The patient/family has a good understanding of our discharge process and will benefit from an interdisciplinary inpatient rehabilitation program. The patient has potential to make improvement and is in need of at least two of the following multidisciplinary therapies including but not limited to physical, oc cupational, speech, and prosthetics and orthotics. Additionally the patient will need services from respiratory, nutritional services, wound care, psychology, etc. (Customize this to each patient). Given the patients complex condition and risk of further medical complications, rehabilitation services cannot be safely or effectively provided at a lower level of care such as a [facility] nursing facility. BARRIERS TO DISCHARGE: MM on chemo and severe anemia and lives alone ESTIMATED LOS: 7 days DISPOSITION: Home RELEVANT CHANGES SINCE PREADMISSION SCREENING: I have compared the patients medical and functional status at the time of the preadmission screening and there are: no changes PROGNOSIS: Good REHABILITATION GOALS: 1. PT OT will focus on regaining function with the use of AD in order to increase stamina of ambulation and increase independence in ADL's in order to return to home All the above goals were reviewed with the patient and he/she is in agreement. By signing this document, I acknowledge that I have personally performed a full physical examination on this patient within 24 hours of admission to this inpatient rehabilitation facility and have determined the patient to be able to tolerate the above course of treatment at an intensive level for a reasonable period of time. I will be completing a detailed individualized Plan of Care for this patient by day #4 of the patients stay based upon the Preadmission Screen, the Post-Admission Evaluation, and the therapy evaluations. Admission Dx/Comorbidities: (1) Closed left hip fracture Status: Acute ICD Codes: S72.002A - Fracture of unspecified part of neck of left femur, initial encounter for closed fracture (2) Multiple myeloma Status: Chronic ICD Codes: C90.00 - Multiple myeloma not having achieved remission (3) Anemia Status: Chronic ICD Codes: D64.9 - Anemia, unspecified Assessment/Plan Assessment and Plan Assess & Plan/Chief Complaint Assessment: Left femur fracture Hypertension Postop anemia from acute blood loss requiring 1 unit of blood on 12/31/22 Debility Post op UTI symptomatic-placed on abx empirically MM on chemo Plan: Pain control Inpatient rehab protocol Bowel regimen Monitor labs AYAKA HAMM DO Dec 31, 2022 05:23
[~2022-12-31 13:00] MED LIST changes: +ACETAMINOPHEN 325 MG TABLET PO PRN; +BISACODYL 10 MG SUPPOSITORY PR PRN; +CALCIUM CARBONATE 500 MG CHEW TABLET PO PRN; +DOCUSATE SODIUM 100 MG CAPSULE PO PRN; +LACTULOSE SYRUP 10GM/15ML 30ML UDC PO PRN; +LOPERAMIDE 2 MG CAPSULE PO PRN; +MELATONIN 3 MG TABLET PO PRN; +MORP30TA PO; +ONDANSETRON 4 MG ORAL DISSOLVE TABLET PO PRN; +Sodium Phosphate/Sodium Biphosphate ADULT enema PR PRN; +diphenhydrAMINE 25 MG TABLET PO PRN; +guaiFENesin/CODEINE 10ML UDC PO PRN
--- OUTSIDE RECORDS SUMMARY | 2022-12-31 13:21 | XMS REPORT | Clinical Summary ---
Author Author [facility] Organization [facility] Address Unknown Phone Unavailable Care Team Providers Care Insurance Writer Name Role Phone Geneva Sigala APRN PCP Allergies Active Allergy Reactions Criticality Noted Date Comments Latex, Natural Rubber 12/13/2014 Sulfa (Sulfonamide Antibiotics) 06/2014 Vancomycin Analogues 12/13/2014 Medications Medication Sig Dispensed Refills Start Date End Date Status FEXOFENADINE/PSEUDOEPHE DRINE (TRACY-D 24 HOUR ORAL) Take by mouth as needed. 0 Active ALPRAZolam (XANAX) 0.25 MG tablet Take 0.25 mg by mouth 3 (three) times a day as needed for sleep. 0 Active acyclovir (ZOVIRAX) 400 MG tablet 2 (two) times a day. 0 03/16/2017 Active LORazepam (ATIVAN) 0.5 MG tablet as needed. 0 04/05/2017 Active morphine (MSIR) 15 MG tablet every 4 (four) hours as needed. 0 03/10/2017 Active MOVANTIK 25 mg TabIndications:pt takes 30 min before breakfast daily. 0 03/09/2017 A ctive ondansetron (ZOFRAN-ODT) 8 MG disintegrating tablet as needed. 0 04/04/2017 Act neri pantoprazole (PROTONIX) 40 MG tablet daily. 5 04/05/2017 Active traMADol (ULTRAM) 50 mg tablet TK 1-2 TS PO Q 4-6 HOURS PRN FOR PAIN 0 02/02/2017 Active zolpidem (AMBIEN) 5 MG tablet 0 04/05/2017 Active temazepam (RESTORIL) 15 mg capsule nightly as needed. 0 04/05/2017 Active metoclopramide (REGLAN) 10 MG tabletIndications:pt states she takes it 30 min before meals Take 10 mg by mouth 4 (four) times a day. 0 Active prochlorperazine (COMPAZINE) 10 MG tablet Take 10 mg by mouth 4 (four) times a day. 0 Active morphine (MS CONTIN) 30 MG 12 hr tablet 30 mg 2 (two) times a day. 0 06/22/2017 Active SANCUSO 3.1 mg/24 hour every 7 (seven) days. 0 10/14/2017 Active polyethylene glycol (GLYCOLAX) 17 gram packet Take 17 g by mouth as needed. 0 Active senna (SENOKOT) 8.6 mg tablet Take 1 tablet by mouth as needed. 0 Active gabapentin (NEURONTIN) 600 MG tablet Take 600 mg by mouth nightly. 0 01/03/2018 Active hydrOXYzine (ATARAX) 25 MG tablet Take 25 mg by mouth daily. 0 07/31/2018 Active rosuvastatin (CRESTOR) 10 MG tablet Take 10 mg by mouth daily. 0 07/26/2018 Active amLODIPine (NORVASC) 5 MG tablet Take 1 tablet (5 mg total) by mouth daily. 90 tablet 3 09/05/2018 Active losartan (COZAAR) 100 MG tablet Take 0.5 tablets (50 mg total) by mouth daily. 45 tablet 3 09/05/2018 Active bortezomib (VELCADE INJ) weekly. 0 Active ELIQUIS 5 mg tablet Take 5 mg by mouth 2 (two) times a day. 0 10/19/2018 Active potassium phosphate, monobasic, (K-PHOS) 500 mg tablet Take 500 mg by mouth 2 (two) times a day. 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 Proteinuria 12/14/2014 Family History Medical History Relation Name Comments Diabetes Brother Hypertension Brother Stroke Brother Cancer Father Cancer Mother Diabetes Mother Hypertension Mother Sarcoidosis Sister 1 Fibromyalgia Sister 2 Lupus Sister 2 Hypertension Sister 3 Liver disease Sister 3 Sarcoidosis Sister 4 Cancer Son Relation Name Status Comments Brother Father Mother Sister 1 Sister 2 Sister 3 Sister 4 Son Social History Tobacco Use Types Packs/Day Years Used Date Smoking Tobacco: Never Smokeless Tobacco: Never Alcohol Use Standard Drinks/Week Comments No 0 (1 standard drink = 0.6 oz pur e alcohol) Sex and Gender Information Value Date Recorded Sex Assigned at Not on file Gender Identity Not on file Sexual Orientation Not on file Last Filed Vital Signs Vital Sign Reading Time Taken Comments Blood Pressure 117/60 01/18/2019 1:56 PM SENIOR HEALTH CONSULTANT Pulse 77 01/18/2019 1:56 PM SENIOR HEALTH CONSULTANT Temperature 36.5 C (97.7 F) 01/18/2019 1:[address] Respiratory Rate 16 01/18/2019 1:56 PM SENIOR HEALTH CONSULTANT Oxygen Saturation 94% 12/14/2014 4:44 PM SENIOR HEALTH CONSULTANT Inhaled Oxygen Concentration - - Weight 52.2 kg (115 lb) 01/18/2019 1:56 PM SENIOR HEALTH CONSULTANT Height 154.9 cm (5' 1") 01/18/2019 1:56 PM SENIOR HEALTH CONSULTANT Body Mass Index 21.73 01/18/2019 1:56 PM SENIOR HEALTH CONSULTANT Plan of Treatment Health Maintenance Due Date Last Done Comments Colonoscopy 1952 Colorectal Cancer Screening 1950 FIT-DNA 1950 Fecal Occult Blood or FIT 1950 Hepatitis C Screen 1950 Sigmoidoscopy 1950 Td/Tdap# 1950 COVID-19 Vaccine (#1) 1957 Zoster Vaccine# (1 of 2) 09/14/1971 Mammogram Screening 2002 Depression Screening PHQ-9 # 2017 Fall Risk Assessment # 2017 12/14/2014 Osteoporosis Screening 2017 Pneumococcal Vaccine: 65+ Ye ars (2 - PPSV23 or PCV20) 12/14/2017 10/19/2017, 05/06/2010 Advance Care Planning Conversation# 02/08/2022 Medicare Annual Wellness 02/08/2022 Social Determinants of Health# 02/08/2022 Influenza Vaccine (#1) 2022 9, 11/18/2017, 12/07/2016, Additional history exists Advance Directives For more information, please contact: [phone] Documents on File Type Date Recorded Patient Risk Control Officer Expl anation Power of Filer Helper 03/18/2015 9:32 PM Latest Code Status on File Code Status Date Activated Date Inactivated Comments Full Code 12/14/2014 12:38 PM 12/14/2014 11:32 PM Care Teams Insurance Writer Relationship Specialty Start Date End Date Geneva Sigala APRN [address] [place] [address] [place], [place] [address] PCP - General Nurse Practitioner 02/23/18
[2022-12-31] MEDS ORDERED: ALPRAZOLAM PO PRN (16:30)
[2022-12-31] MEDS ORDERED: DOCUSATE PO PRN (16:30)
[2022-12-31] MEDS ORDERED: PATIENT MAY USE OWN MEDS, ALL MC SCH (16:30)
[2022-12-31] MEDS ORDERED: ONDANSETRON PO PRN (16:30)
[2022-12-31] MEDS ORDERED: ZOLPIDEM PO PRN (16:30)
[2022-12-31] MEDS ORDERED: SENNOSIDES 8.6 MG TABLET PO PRN (16:30)
[2022-12-31] MEDS ORDERED: BISACODYL 5 MG TABLET PO PRN (16:30)
[2022-12-31] MEDS ORDERED: MELATONIN 10 MG TABLET PO PRN (16:30)
[2022-12-31] MEDS ORDERED: ONDANSETRON INJECTION 4 MG/2 ML (SDV) IVP PRN (16:30)
[2022-12-31] MEDS ORDERED: TEMAZEPAM PO PRN (16:30)
[2022-12-31] MEDS ORDERED: ACETAMINOPHEN 500 MG TABLET PO PRN (16:30)
[2022-12-31] MEDS: MORPHINE PO SCH (18:01)
[2022-12-31] MEDS: oxyCODONE IMMEDIATE RELEASE 5 MG TABLET PO PRN ×2 (18:01→22:12)
[2022-12-31] MEDS ORDERED: PHENAZOPYRIDINE 100 MG TABLET PO PRN (18:45)
[2022-12-31] MEDS ORDERED: PHENAZOPYRIDINE 100 MG TABLET PO ONE (18:45)
[2022-12-31] MEDS ORDERED: PHENAZOPYRIDINE 100 MG TABLET ONE (20:01)
[2022-12-31 20:02] VITALS: BP 116/55
[2022-12-31] MEDS ORDERED: CEFDINIR 300 MG CAPSULE PO ONE (20:08)
[2022-12-31] MEDS ORDERED: POTASSIUM CHLORIDE 10 MEQ TABLET PO ONE (20:10)
[2022-12-31] MEDS: CEFDINIR 300 MG CAPSULE PO SCH (20:22)
[2022-12-31] MEDS: ACYCLOVIR 400 MG CAPSULE/TABLET PO SCH (20:22)
[2022-12-31] MEDS: SENNA W/DOCUSATE TABLET PO SCH (20:32)
[2022-12-31] MEDS: DOCUSATE SODIUM 100 MG CAPSULE PO SCH (20:32)
[2022-12-31] MEDS ORDERED: CALCIUM PO SCH (21:00)
[2022-12-31] MEDS ORDERED: GABAPENTIN PO SCH (21:00)
[2022-12-31] MEDS ORDERED: POTASSIUM CHLORIDE 10 MEQ TABLET PO SCH (21:00)
[2022-12-31] MEDS ORDERED: D3 PO SCH (21:00)
[2022-12-31] MEDS ORDERED: POTASSIUM PHOSPHATE PO SCH (21:00)
[2022-12-31] MEDS ORDERED: ACYCLOVIR PO SCH (21:00)
[2023-01-01] MEDS: oxyCODONE IMMEDIATE RELEASE 5 MG TABLET PO PRN ×4 (04:02→23:02)
[2023-01-01] MEDS: MORPHINE PO SCH (04:10)
[2023-01-01 06:14] LABS: BASOPHILS % (AUTO) 0 % (0-10); HEMOGLOBIN 8.7 g/dL (11.5-16.0)
[2023-01-01 06:16] LABS: EOSINOPHILS # (AUTO) 0.2 10^3/uL (0.0-0.3); EOSINOPHILS % (AUTO) 5 % (0-10); HEMATOCRIT 26 % (35-52); LYMPHOCYTES # (AUTO) 0.8 10^3/uL (1.0-4.0); LYMPHOCYTES % (AUTO) 19 % (12-44); MEAN CORPUSCULAR HEMOGLOBIN 34 pg (25-34); MEAN CORPUSCULAR HGB CONC 34 g/dL (32-36); MEAN CORPUSCULAR VOLUME 100 fL (80-99); MEAN PLATELET VOLUME 9.7 fL (9.0-12.2); MONOCYTES # (AUTO) 0.6 10^3/uL (0.0-1.0); MONOCYTES % (AUTO) 14 % (0-12); NEUTROPHILS # (AUTO) 2.6 10^3/uL (1.8-7.8); NEUTROPHILS % (AUTO) 62 % (42-75); PLATELET COUNT 92 10^3/uL (130-400); WHITE BLOOD COUNT 4.3 10^3/uL (4.3-11.0)
[2023-01-01 06:45] LABS: ALBUMIN 2.7 GM/DL (3.2-4.5); BILIRUBIN,TOTAL 0.8 MG/DL (0.1-1.0); CALCIUM 8.6 MG/DL (8.5-10.1); CREATININE SERUM 1.74 MG/DL (0.60-1.30); POTASSIUM 4.6 MMOL/L (3.6-5.0); TOTAL PROTEIN 4.2 GM/DL (6.4-8.2)
--- NOTE | 2023-01-01 06:53 | PM&R Progress Note ---
Subjective HPI/CC On Admission Date Seen by Provider: Jan 01, 2023 Time Seen by Provider: 12:30 Subjective/Events-last exam 01/01/2023: Patient doing well Family visiting today UTI placed on Omnicef empirically Hemoglobin increased after 1 unit of blood yesterday Feels good Pain controlled Review of Systems General: Fatigue, Malaise Objective Exam Vital Signs Vital Signs Date Time Temp Pulse Resp B/P (MAP) Pulse Ox O2 Delivery O2 Flow Rate FiO2 01/01/23 08:30 96 Room Air 0.00 01/01/23 08:00 36.2 89 16 120/64 (82) Capillary Refill : General Appearance: No Apparent Distress, WD/WN, Chronically ill HEENT: PERRL/EOMI, Normal ENT Inspection, Pharynx Normal Neck: Full Range of Motion, Normal Inspection, Non Tender, Supple, Carotid Bruit Respiratory: Chest Non Tender, Lungs Clear, Normal Breath Sounds, No Accessory Muscle Use, No Respiratory Distress Cardiovascular: Regular Rate, Rhythm, No Edema, No Gallop, No JVD, No Murmur, Normal Peripheral Pulses Gastrointestinal: Normal Bowel Sounds, No Organomegaly, No Pulsatile Mass, Non Tender, Soft Back: Normal Inspection, No CVA Tenderness, No Vertebral Tenderness Extremity: Normal Capillary Refill, Normal Inspection, Normal Range of Motion (except left leg), Non Tender, No Calf Tenderness, No Pedal Edema Neurologic/Psychiatric: Alert, Oriented x3, Normal Mood/Affect, barrelhead inspector II-XII Norm as Tested, Abnormal Gait, Motor Weakness (left leg) Skin: Normal Color, Warm/Dry Lymphatic: No Adenopathy Results/Procedures Lab Laboratory Tests 01/01/23 06:05 Patient resulted labs reviewed. FIM Transfers Therapy Code Descriptions/Definitions Functional [place] Measure: 0=Not Assessed/NA 4=Minimal Assistance 1=Total Assistance 5=Supervision or Setup 2=Maximal Assistance 6=Modified [place] 3=Moderate Assistance 7=Complete IndependenceSCALE: Activities may be completed with or without assistive devices. 6-Fumdnwzjfk-avqydkg completes the activity by him/herself with no assistance from a helper. 5-Set-up or Clean-up Assistance-helper sets up or cleans up; patient completes activity. [place] assists only prior to or following the activity. 4-Supervision or Touching Assistance-helper provides verbal cues and/or touching/steadying and/or contact guard assistance as patient completes activity. Assistance may be provided throughout the activity or intermittently. 3-Partial/Moderate Assistance-helper does LESS THAN HALF the effort. [place] lifts, holds or supports trunk or limbs, but provides less than half the effort. 2-Substantial/Maximal Assistance-helper does MORE THAN HALF the effort. [place] lifts or holds trunk or limbs and provides more than half the effort. 3-Xwcdatcup-kssdfl does ALL the effort. Patient does none of the effort to complete the activity. Or, the assistance of 2 or more helpers is required for the patient to complete the activity. If activity was not attempted, code reason: 7-Patient Refused. 9-Not Applicable-not attempted and the patient did not perform the activity before the current illness, exacerbation or injury. 10-Not Attempted due to Environmental Limitations-(lack of equipment, weather restraints, etc.). 88-Not Attempted due to Medical Conditions or Safety Concerns. Assessment/Plan Assessment and Plan Assess & Plan/Chief Complaint Assessment: Left femur fracture Hypertension Postop anemia from acute blood loss requiring 1 unit of blood on 12/31/22 Debility Post op UTI symptomatic-placed on abx empirically MM on chemo Plan: Pain control Inpatient rehab protocol Bowel regimen Monitor labs 01/01/2023: Monitor hemoglobin Await urine culture (1) Closed left hip fracture Status: Acute (2) Multiple myeloma Status: Chronic (3) Anemia Status: Chronic AYAKA HAMM DO Jan 01, 2023 06:53
[2023-01-01 08:00] VITALS: BP 120/64
[2023-01-01] MEDS ORDERED: ROSUVASTATIN PO SCH (09:00)
[2023-01-01] MEDS ORDERED: POTASSIUM PO SCH (09:00)
[2023-01-01] MEDS: IRON SUCROSE 200 MG/10 ML VIAL IV SCH (09:51)
[2023-01-01] MEDS: ACYCLOVIR 400 MG CAPSULE/TABLET PO SCH ×2 (09:51→21:17)
[2023-01-01] MEDS: CEFDINIR 300 MG CAPSULE PO SCH ×2 (09:51→21:17)
[2023-01-01] MEDS: DOCUSATE SODIUM 100 MG CAPSULE PO SCH ×2 (11:32→21:17)
[2023-01-01] MEDS: SENNA W/DOCUSATE TABLET PO SCH ×2 (11:33→21:17)
[2023-01-01] MEDS ORDERED: DOCUSATE SODIUM 100 MG CAPSULE PO PRN (13:15)
[2023-01-01] MEDS ORDERED: ZOLPIDEM 5 MG (AMBIEN) TAB PO PRN (13:15)
--- NOTE | 2023-01-01 13:15 | ST Cognitive Linguistic Eval ---
Speech Evaluation-General Medical Diagnosis Left hip fracture Onset Date: Jan 01, 2023 Therapy Diagnosis Therapy Diagnosis: Eval Only Precautions Precautions: Fall Precautions/Isolations: Standard Precautions Referral Referring Physician: Nico Reason for Referral: Evaluation/Treatment Medical History Pertinent Medical History: HTN, Hypothroidism UTI, Leukemia Current History Pt fell at home and suffered left hip fx. Social History Current Living Status: Alone Speech PLF-Current Status Prior Level of Function Per pt, she was completing all ADLs independently and had family close by if she needs assistance. Subjective Pt sitting in bedside chair receiving iron transfusion, but agreeable to session. Language Eval: Auditory Comprehends Simple Yes/No Ques: Functional Follows 1-Step Commands: Functional Follows Complex Directions: Functional Follows General Conversations: Functional Language Eval: Verbal Language Completes Spontaneous Greeting: Functional Imitates Simple Words/Phrases: Functional Word Finding: Functional Requests Basic Needs: Functional States Basic Personal Info: Functional Expresses Complex Ideas: Functional Language Evaluation: Writing Copies/Traces: Functional Writes to Simple Dictation: Functional Objective Cognitive Domain Attention: WNL Memory: WNL Objective Formal/Standardized Tests MOCA and bedside swallow screen Results Pt scores 30/30 on MOCA. This score demonstrates WFL for cognition. Pt was given a bedside swallow screen and demonstrates no s/s of dysphagia. Impression Pt appears to be WFL regarding cognition and swallow. Speech-Plan Patient/Family Goals Patient/Family Goals: To return to QI's house until she recovers, and then will return to her house. Treatment Plan Speech Therapy Treatment Plan: Discontinue ST Treatment Duration: Jan 01, 2023 Frequency: 1 time per week Estimated Hrs Per Day: Other (Eval only ) Rehab Potential: Good Pt/Family Agrees to Plan: Yes Time Speech Therapy Time In: 11:15 Speech Therapy Time Out: 11:45 DATE: Jan 01, 2023 Total Billed Time: 30 Billed Treatment Time 1 SLVITALIY 1 DYSEVS 30 min Kenisha Koenig Jan 01, 2023 13:15
[2023-01-01] MEDS ORDERED: ALPRAZolam 0.25 MG TABLET PO PRN (13:30)
[2023-01-01] MEDS ORDERED: TEMAZEPAM 15 MG (RESTORIL) CAP PO PRN (13:30)
--- NOTE | 2023-01-01 14:59 | Occupational Therapy Eval ---
OT Evaluation-General/PLF Medical Diagnosis Admission Date Dec 31, 2022 at 13:00 Medical Diagnosis: Left hip fracture Onset Date: Jan 01, 2023 Therapy Diagnosis Therapy Diagnosis: decreased ADL independence, decreased independence for functional mobility Height/Weight Height (Feet): 5 Height (Inches): 1.00 Weight (Pounds): 127 Precautions Precautions/Isolations: Standard Precautions Weight Bear Status Weight Bearing Restriction: Weight Bearing/Tolerated Location Restriction: L LE Medical History Pertinent Medical History: HTN, Hypothroidism Additional Medical History [place] Reviewed History: Yes Social History Home: Single Level Current Living Status: Alone Entry Into Home: Stairs With Railing (1 railing ) Steps Into Home: 2 Steps Inside Home: 0 ADL-Prior Level of Function SCALE: Activities may be completed with or without assistive devices. 6-Fgxrmrruvg-mofpulw completes the activity by him/herself with no assistance from a helper. 5-Set-up or Clean-up Assistance-helper sets up or cleans up; patient completes activity. [place] assists only prior to or following the activity. 4-Supervision or Touching Assistance-helper provides verbal cues and/or touching/steadying and/or contact guard assistance as patient completes activity. Assistance may be provided throughout the activity or intermittently. 3-Partial/Moderate Assistance-helper does LESS THAN HALF the effort. [place] lifts, holds or supports trunk or limbs, but provides less than half the effort. 2-Substantial/Maximal Assistance-helper does MORE THAN HALF the effort. [place] lifts or holds trunk or limbs and provides more than half the effort. 7-Bsbxhdowo-onydbr does ALL the effort. Patient does none of the effort to complete the activity. Or, the assistance of 2 or more helpers is required for the patient to complete the activity. If activity was not attempted, code reason: 7-Patient Refused. 9-Not Applicable-not attempted and the patient did not perform the activity before the current illness, exacerbation or injury. 10-Not Attempted due to Environmental Limitations-(lack of equipment, weather restraints, etc.). 88-Not Attempted due to Medical Conditions or Safety Concerns. 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 Pt very pleasant and willing to participate in therapy. Pain Numeric Pain Scale: 6 Location: Incisional Location Body Site: Hip Pain Description: Ache Mental Status/Objective Patient Orientation: Person, Place, Time, Situation Attachments: IV Current Glasses/Contacts: No Hearing Aids: No Dentures/Partials: No Hand Dominance: Right Upper Extremity ROM Bilateral shoulders, elbows, wrist and hand ROM WFL Upper Extremity Coordination Bilateral WFL Upper Extremity Sensation Bilateral WFL Upper Extremity Strength R Shoulder: 4-/5; L shoulder not formally assessed due to increased pain from fall though demonstrated 3/5 strength during functional activities. R Elbow: 4-/5; L elbow not formally assessed due to increased pain from fall though demonstrated 3/5 strength during functional activities. Bilateral Plodding Operator: 4-/5 ADL-Treatment Eating (QC): 5 Oral Hygiene (QC): 5 (standing at sink ) Shower/Bathe Self (QC): 4 (utilizing shower chair) Upper Body Dressing (QC): 5 Lower Body Dressing (QC): 3 (requiring assistance to thread L leg through underwear and pants; independent rest of activity. ) On/Off Footwear (QC): 2 (To don/doff L sock) Toileting Hygiene (QC): 4 Other Treatments Introduced pt to sock aid and wine specialist for LBD and to don/doff footwear, though pt requires additional training to increase independence with equipment. Education OT Patient Education: Correct positioning, Energy conservation, Home exercise program, Modified ADL techniques, Progress toward Goal/Update tx plan, Purpose of tx/functional activities, Reviewed precautions, Rehab process, Safety issues, Transfer techniques, Use of adapted equipment Teaching Recipient: Patient Teaching Methods: Demonstration, Discussion Response to Teaching: Verbalize Understanding, Return Demonstration BIMS CAM BIMS Expression of Ideas and Wants: Without Difficulty Understanding Verbal Content: Understands Brief Interview/Mental Status: Yes IRF DIANE BIMS: IRF DIANE BIMS Response (Comments) Value Repitition of Three Words Three 3 Recalls Socks Yes, No Cue Required 2 Recalls Blue Yes, No Cue Required 2 Recalls Bed Yes, No Cue Required 2 Year Correct 3 Month Accurate Within 5 Days 2 Day Correct 1 Total 15 Patient Normally Able to Recal: Current Session, Location of own room, Staff Names and faces, That he/she in a hsp Should Staff Asses. Mental St.: No Memory/Recall Ability: Current Season, Location of Own Room, Staff Names and Faces, That He/She in [facility] CAM Mental Status Change/Baseline: 0 Inattention: 0 Disorganized thinkin Altered level of consciousness: 0 OT Short Term Goals Short Term Goals Time Frame: Jan 08, 2023 Eatin Oral hygiene: 5 Toileting hygiene: 5 Shower/bathe self: 5 Upper body dressin Lower body dressin Putting on/taking off footwear: 5 OT Usp Goals Crane Man Goals Time Frame: Jan 15, 2023 Acute change in mental status: 0 Inattention: 0 Disorganized thinkin Altered level of consciousness: 0 Eating (QC): 6 Oral Hygiene (QC): 6 Toileting Hygiene (QC): 6 Shower/Bathe Self (QC): 6 Upper Body Dressing (QC): 6 Lower Body Dressing (QC): 6 On/Off Footwear (QC): 6 1=Demonstrate adherence to instructed precautions during ADL tasks. 2=Patient will verbalize/demonstrate understanding of assistive devices/modifications for ADL. 3=Patient will improve strength/tolerance for activity to enable patient to perform ADL's. OT Education/Plan Problem List/Assessment Assessment: Decreased Activ Tolerance, Decreased Safety Aware, Decreased UE Strength, Impaired Bed Mobility, Impaired Coordination, Impaired Funct Balance, Impaired I ADL's, Impaired Self-Care Skills Discharge Recommendations Plan/Recommendations: Continue POC Comment Will make additional recommendations closer to d/c Barriers to Progress pain Treatment Plan/Plan of Care Treatment,Training & Education: Yes Patient would benefit from OT for education, treatment and training to promote independence in ADL's, mobility, safety and/or upper extremity function for ADL's. Plan of Care: ADL Retraining, Caregiver Training, Concurrent Therapy, Functional Mobility, Group Exercise/Act as Ind, UE Funct Exercise/Act Treatment Duration: Feb 06, 2023 Frequency: At least 5 of 7 days/Wk (IRF) Estimated Hrs Per Day: 1.5 hours per day Agreement: Yes Rehab Potential: Good Time Start Time: 09:05 Stop Time: 10:05 DATE: Jan 01, 2023 Total Time Billed (hr/min): 60 Billed Treatment Time 1, EVL, ADL 3 Selina Luis OTR/L Jan 01, 2023 14:59
--- NOTE | 2023-01-01 16:23 | Physical Therapy Evaluation ---
PT Evaluation-General Medical Diagnosis Admission Date Dec 31, 2022 at 13:00 Medical Diagnosis: Left hip fracture Onset Date: Jan 01, 2023 Therapy Diagnosis Therapy Diagnosis: Left hip fx/UTI Height/Weight Height (Feet): 5 Height (Inches): 1.00 Weight (Pounds): 127 Precautions Precautions/Isolations: Standard Precautions Weight Bear Status Right Lower Extremity: Right Weight Bearing/Tolerated Left Lower Extremity: Left Weight Bearing/Tolerated Standard precautions. Referral Reason for Referral: Evaluation/Treatment, Strengthening, Gait, ROM Medical History Pertinent Medical History: HTN, Hypothroidism Additional Medical History CA (leukemia), Diverticulitis, Polymyeloma PSxHx: Appendectomy, Bowel Surgery, Gallbladder, Hysterectomy, Orthopedic Reviewed History: Yes Social History Home: Single Level Current Living Status: Alone Entry Into Home: Stairs With Railing (1 railing ) PT Steps Into Home: 2 PT Steps Inside Home: 0 Prior Prior Level of Function SCALE: Activities may be completed with or without assistive devices. 2-Ndzcgjrwtr-wgzrjjt completes the activity by him/herself with no assistance from a helper. 5-Set-up or Clean-up Assistance-helper sets up or cleans up; patient completes activity. [place] assists only prior to or following the activity. 4-Supervision or Touching Assistance-helper provides verbal cues and/or touching/steadying and/or contact guard assistance as patient completes activity. Assistance may be provided throughout the activity or intermittently. 3-Partial/Moderate Assistance-helper does LESS THAN HALF the effort. [place] lifts, holds or supports trunk or limbs, but provides less than half the effort. 2-Substantial/Maximal Assistance-helper does MORE THAN HALF the effort. [place] lifts or holds trunk or limbs and provides more than half the effort. 4-Ifcmtywhk-rcpzcf does ALL the effort. Patient does none of the effort to complete the activity. Or, the assistance of 2 or more helpers is required for the patient to complete the activity. If activity was not attempted, code reason: 7-Patient Refused. 9-Not Applicable-not attempted and the patient did not perform the activity before the current illness, exacerbation or injury. 10-Not Attempted due to Environmental Limitations-(lack of equipment, weather restraints, etc.). 88-Not Attempted due to Medical Conditions or Safety Concerns. Bed Mobility: 6 Transfers (B,C,W/C): 6 Gait: 6 Stairs: 6 Wheelchair Mobility: 9 Indoor Mobility (Ambulation): Independent Stairs: Independent Prior Devices Use: Walker Prior Device Use: 4WW, 3WW PT Evaluation-Current Subjective Patient is a 72 year old female who has been referred for PT intervention following IM nailing repair of L hip fx. Patient reports that she had taken sleeping medication and was preparing for bed, left water faucet running, overflowing onto floor, resulting in slip, fall and fx. Patient presents as pleasant and motivated to return home. Patient rates pain 8/10 with a minimum of 7/10 at rest. Patient previously independent with use of 4WW or preferred 3WW. Patient reports low activity at baseline. Patient admits WBAT with standard precautions LLE. Pain Section J - Health Conditions 1. Rarely or not at all 2. Occasionally 3. Frequently 4. Almost constantly 8. Unable to answer Pain Effect on Sleep: 4 Pain Interference with Therapy: 4 Pain Interference w/Day-to-Day: 4 Pt/Family Goals Return home, independent, PLOF Objective Patient Orientation: Person, Place, Situation ROM/Strength ROM Upper Extremities See OT eval ROM Lower Extremities RLE hip limited <90 deg per precautions RLE hip ABD limited 15 deg RLE hip ADD limited 0 deg per precautions. Limited ankle DF 0 deg B All other ROM WNL Strength Upper Extremities See OT Eval Strength Lower Extremities LLE 3/5 RLE 4/5 Sensory Hand Dominance: Right Transfers Roll Left & Right (QC): 4 Sit to Lying (QC): 4 Lying to Sitting/Side of Bed(Q: 4 Sit to Stand (QC): 3 Chair/Mfn-zf-Ipavu Xfer(QC): 3 Toilet Transfer (QC): 3 Car Transfer (QC): 3 Patient participated in functional transfer practice with use of FWW focusing on improving performance, sequence, and safety with use of AD. Patient req min-modA and req mod t/c and v/c throughout session. Patient participated in functional bed mobility and repo practice focusing on improving efficiency and quality of functional task CGA-SPV Gait Does the Patient Walk?: Yes Mode of Locomotion: Walk Anticipated Mode of Locomotion: Walk Walk 10 feet (QC): 4 Walk 50 ft with 2 Turns(QC): 4 Walk 150 ft (QC): 4 Walking 10ft/uneven surface-QC: 88 Distance: 150 Gait Assistive Device: FWW Comments/Gait Description Patient participated in functional gait training with use of FWW on even surfaces with multiple turns, achieving maximum distances of 150ft CGA-Izabella. Patient focus on improving functional stepping mechanics, AD management, ability to maintain COG/KERLINE, and environmental awareness. Patient amb with reduced stride length LLE, reduced riya, reduced toe clearance, asymmetrical stepping, and antalgic gait. Wheelchair Training Does the Pt Use a Wheelchair?: No Distance: NA Wheel 50 ft with 2 turns (QC): 9 Wheel 150 ft (QC): 9 Type of Wheelchair: N/A Stairs #of Steps: 2 1 Step (curb) (QC): 3 4 Steps (QC): 4 12 Steps (QC): 88 Patient asc/desc 4 stair steps with use of B railing modA, educated on sequencing and improving performance. Balance Picking up an Object (QC): 88 Special Test Comments KU seated 4+/5 KU standing 3+/5 Treatment EX: Patient perform LLE heels slide, LLE SLR and LLE hip ABD 15 deg AROM x3 sets of 10 Performed within precautions with careful monitoring. Patient rode NuStep for 12 minutes on WL4 with BUE and BLE for improved functional strength, endurance and mobility NE: Patient participated in static and dynamic, seated and standing, progressive functional balance challenges focusing on maintaining COG/KERLINE, balance, stability and reactive control. Assessment/Needs Rehab Potential: Good PT Short Term Goals Short Term Goals Time Frame: Jan 15, 2023 Roll Left & Right: 5 Sit to lyin Lying to sitting on side of be: 5 Sit to stand: 5 Chair/rvu-vg-gfmqm transfer: 5 Toilet transfer: 5 Car transfer: 5 Walk 10 feet: 5 Walk 50 feet with two turns: 5 Walk 150 feet: 5 Walking 10ft on uneven surface: 5 1 step (curb): 5 4 steps: 5 12 steps: 9 Picking up objects: 5 Does pt use a wc or scooter: No Wheel 50ft w/2 turns: 9 Wheel 150 feet: 9 Type: N/A PT Half-Way Goals Half-Way Goals PT Exhaust And Muffler Fitter Goals Time Frame: Jan 22, 2023 Roll Left to Right (QC): 6 Sit to Lying (QC): 6 Lying-Sitting on Side/Bed(QC): 6 Sit to Stand (QC): 6 Chair/Kzd-et-Svekc Xfer(QC): 6 Toilet/Commode Transfer (QC): 6 Car Transfer (QC): 6 Does the Patient Walk: Yes Walk 10 feet (QC): 6 Walk 10ft-Uneven Surface(QC): 6 Walk 50ft with 2 Turns (QC): 6 Walk 150 ft (QC): 6 Does the Pt use WC or Scooter?: No Wheel 50 feet with 2 turns (QC: 9 Type: N/A Wheel 150 feet: 9 Type: N/A 1 Step (curb) (QC): 6 4 Steps (QC): 6 12 Steps (QC): 9 Picking up an Object (QC): 6 PT Plan Problem List Problem List: Activity Tolerance, Functional Strength, Safety, Balance, Gait, Transfer, Bed Mobility, ROM Treatment/Plan Treatment Plan: Continue Plan of Care Treatment Plan: Bed Mobility, Education, Functional Activity Natasha, Functional Strength, Group Therapy, Gait, Safety, Transfers Treatment Duration: Jan 01, 2023 Frequency: At least 5 of 7 days/Wk (IRF) Estimated Hrs Per Day: 1.5 hours per day Patient and/or Family Agrees t: Yes Safety Risks/Education Patient Education: Gait Training, Transfer Techniques, Steps, Reviewed Precautions, Correct Positioning, Safety Issues Discharge Recommendations Plan Return home, independent PLOF Time Time In: 1305 Time Out: 1435 DATE: Jan 01, 2023 Total Billed Treatment Time: 90 Total Billed Treatment 1 session/90 minutes 1EVL 1NE 2EX 1GT 1FA MINA GALVEZ PT Jan 01, 2023 16:23
[2023-01-01] MEDS: ONDANSETRON 4 MG ORAL DISSOLVE TABLET PO PRN (17:08)
[2023-01-01] MEDS: CALCIUM PO SCH (18:24)
[2023-01-01] MEDS: D3 PO SCH (18:24)
[2023-01-01 19:55] VITALS: BP 133/70
[2023-01-01] MEDS: MORPHINE 30 MG PO SCH (20:19)
[2023-01-01 21:14] VITALS: BP 135/73
[2023-01-01] MEDS: GABAPENTIN 600 MG TABLET PO SCH (21:17)
[2023-01-01] MEDS: POTASSIUM CHLORIDE 10 MEQ TABLET PO SCH (21:17)
[2023-01-01] MEDS: POTASSIUM PHOSPHATE PO SCH (21:17)
[2023-01-02] MEDS: POTASSIUM CHLORIDE 20 MEQ TABLET PO SCH (06:03)
[2023-01-02] MEDS: THYROID PO SCH (06:05)
[2023-01-02] MEDS: oxyCODONE IMMEDIATE RELEASE 5 MG TABLET PO PRN ×2 (06:11→10:59)
--- NOTE | 2023-01-02 06:33 | PM&R Progress Note ---
Subjective HPI/CC On Admission Date Seen by Provider: Jan 02, 2023 Time Seen by Provider: 12:30 Subjective/Events-last exam 01/02/2023: Patient doing well Supportive care continues Urine culture reviewed so we will shift from cefdinir to Cipro Changing pain medication to immediate release morphine if she needs just as she does at home 01/01/2023: Patient doing well Family visiting today UTI placed on Omnicef empirically Hemoglobin increased after 1 unit of blood yesterday Feels good Pain controlled Review of Systems General: Fatigue, Malaise Objective Exam Vital Signs Vital Signs Date Time Temp Pulse Resp B/P (MAP) Pulse Ox O2 Delivery O2 Flow Rate FiO2 01/02/23 20:00 96 Room Air 01/02/23 19:49 36.8 83 18 120/70 (87) 01/02/23 10:27 0.00 Capillary Refill : General Appearance: No Apparent Distress, WD/WN, Chronically ill HEENT: PERRL/EOMI, Normal ENT Inspection, Pharynx Normal Neck: Full Range of Motion, Normal Inspection, Non Tender, Supple, Carotid Bruit Respiratory: Chest Non Tender, Lungs Clear, Normal Breath Sounds, No Accessory Muscle Use, No Respiratory Distress Cardiovascular: Regular Rate, Rhythm, No Edema, No Gallop, No JVD, No Murmur, Normal Peripheral Pulses Gastrointestinal: Normal Bowel Sounds, No Organomegaly, No Pulsatile Mass, Non Tender, Soft Back: Normal Inspection, No CVA Tenderness, No Vertebral Tenderness Extremity: Normal Capillary Refill, Normal Inspection, Normal Range of Motion (except left leg), Non Tender, No Calf Tenderness, No Pedal Edema Neurologic/Psychiatric: Alert, Oriented x3, Normal Mood/Affect, claims specialist II-XII Norm as Tested, Abnormal Gait, Motor Weakness (left leg) Skin: Normal Color, Warm/Dry Lymphatic: No Adenopathy Results/Procedures Lab Patient resulted labs reviewed. FIM Transfers Therapy Code Descriptions/Definitions Functional [place] Measure: 0=Not Assessed/NA 4=Minimal Assistance 1=Total Assistance 5=Supervision or Setup 2=Maximal Assistance 6=Modified [place] 3=Moderate Assistance 7=Complete IndependenceSCALE: Activities may be completed with or without assistive devices. 7-Yutfqcvnqm-rqzcwch completes the activity by him/herself with no assistance from a helper. 5-Set-up or Clean-up Assistance-helper sets up or cleans up; patient completes activity. [place] assists only prior to or following the activity. 4-Supervision or Touching Assistance-helper provides verbal cues and/or touching/steadying and/or contact guard assistance as patient completes activity. Assistance may be provided throughout the activity or intermittently. 3-Partial/Moderate Assistance-helper does LESS THAN HALF the effort. [place] lifts, holds or supports trunk or limbs, but provides less than half the effort. 2-Substantial/Maximal Assistance-helper does MORE THAN HALF the effort. [place] lifts or holds trunk or limbs and provides more than half the effort. 4-Dvhjpbnvj-vnnxwq does ALL the effort. Patient does none of the effort to complete the activity. Or, the assistance of 2 or more helpers is required for the patient to complete the activity. If activity was not attempted, code reason: 7-Patient Refused. 9-Not Applicable-not attempted and the patient did not perform the activity before the current illness, exacerbation or injury. 10-Not Attempted due to Environmental Limitations-(lack of equipment, weather restraints, etc.). 88-Not Attempted due to Medical Conditions or Safety Concerns. Roll Left to Right (QC): 4 Sit to Lying (QC): 4 Sit to Stand (QC): 3 Chair/Gqi-yu-Rudfc Xfer(QC): 3 Car Transfer (QC): 3 Gait Training Does the Patient Walk?: Yes Walk 10 feet (QC): 4 Walk 50 ft with 2 Turns(QC): 4 Walk 150 ft (QC): 4 Walking 10ft/uneven surface-QC: 88 Gait Assistive Device: FWW Wheelchair Training Does the Pt Use a Wheelchair?: No Distance: NA Wheel 50 ft with 2 turns (QC): 9 Wheel 150 ft (QC): 9 Type of Wheelchair: N/A Stair Training #of Steps: 2 1 Step (curb) (QC): 3 4 Steps (QC): 4 12 Steps (QC): 88 Balance Picking up an Object (QC): 88 ADL-Treatment Eating (QC): 5 Oral Hygiene (QC): 5 (standing at sink ) Shower/Bathe Self (QC): 4 (utilizing shower chair) Upper Body Dressing (QC): 5 Lower Body Dressing (QC): 3 (requiring assistance to thread L leg through underwear and pants; independent rest of activity. ) On/Off Footwear (QC): 2 (To don/doff L sock) Toileting Hygiene (QC): 4 Assessment/Plan Assessment and Plan Assess & Plan/Chief Complaint Assessment: Left femur fracture Hypertension Postop anemia from acute blood loss requiring 1 unit of blood on 12/31/22 Debility Post op UTI symptomatic-placed on abx empirically MM on chemo Plan: Pain control Inpatient rehab protocol Bowel regimen Monitor labs 01/01/2023: Monitor hemoglobin Await urine culture 01/02/2023: Change antibiotics from cefdinir to Cipro Add immediate release morphine as she does at home (1) Closed left hip fracture Status: Acute (2) Multiple myeloma Status: Chronic (3) Anemia Status: Chronic AYAKA HAMM DO Jan 02, 2023 06:33
--- NOTE | 2023-01-02 06:33 | Individualized Plan of Care ---
Individualized Plan of Care Rehab Nursing IPOC Order Admission Date Dec 31, 2022 at 13:00 Current Orders Orders Admission Order(Inpt,Obs,Sdc) (12/31/22 05:21) Vital Signs: Per Unit Policy ( 08,16,00 (12/31/22 05:21) Bill Bynum (12/31/22 05:21) Sequential Compression Device Q12HX1 (12/31/22 05:21) Director Life Insurance-Inpt Rehab Con (12/31/22 05:21) Rehab Nursing Orders-Ipoc (12/31/22 05:21) Physical Therapy Rehab Orders (12/31/22 05:21) Occupational Therapy Rehab Ord (12/31/22 05:21) Speech Therapy Rehab Orders (12/31/22 05:21) Cbc And Automated Diff (01/01/23 06:00) Comprehensive Metabolic Panel (01/01/23 06:00) Precautions (Aru) (12/31/22 05:21) Weekly Weight WEEK (12/31/22 05:21) Rehab-Intensity Of Therapy (12/31/22 05:21) Initiate Admission Nursing Pro .admission (12/31/22 05:21) Calcium Carbonate Chew Tablet (Calcium C (12/31/22 05:30) Diphenhydramine Tablet (Diphenhydramine (12/31/22 05:30) Docusate Sodium Capsule (Docusate Sodium (12/31/22 21:00) Docusate Sodium Capsule (Docusate Sodium (12/31/22 05:30) Bisacodyl Suppository (Bisacodyl Supposi (12/31/22 05:30) Lactulose Oral Solution (Enulose Oral So (12/31/22 05:30) Na Phos/Na Biphos Adult Enema (Na Phos/N (12/31/22 05:30) Guaifenesin/Codeine Syrup (Guaifenesin/C (12/31/22 05:30) Loperamide Capsule (Loperamide Capsule) (12/31/22 05:30) Melatonin Tablet (Melatonin Tablet) (12/31/22 05:30) Polyethylene Glycol Powder (Polyethylen (12/31/22 21:00) Ondansetron Oral Dissolve Tab (Ondanset (12/31/22 05:30) Senna W/Docusate Tablet (Senna W/Docusat (12/31/22 21:00) Acetaminophen Tablet (Acetaminophen Ta (12/31/22 05:30) Admission Arrival Bed Request (12/31/22 13:14) General/Regular (12/31/22 Dinner) Code/Resuscitation (12/31/22 16:29) Dressing Order (Intervention) DAILY (12/31/22 16:29) Ice: Apply To Affected Area (12/31/22 16:29) Incentive Spirometry (Nursing) Q2H (12/31/22 16:29) Sequential Compression Device Q12HX1 (12/31/22 16:29) Weight Bearing As Tolerated (12/31/22 16:29) (Nf) Acyclovir (12/31/22 21:00) (Nf) Alprazolam (12/31/22 16:30) (Nf) Calcium + D3 (12/31/22 21:00) (Nf) Docusate (12/31/22 16:30) (Nf) Gabapentin (12/31/22 21:00) (Nf) Morphine (12/31/22 16:30) (Nf) Ondansetron (12/31/22 16:30) (Nf) Potassium Phosphate (12/31/22 21:00) (Nf) Rosuvastatin (01/01/23 09:00) (Nf) Temazepam (12/31/22 16:30) (Nf) Zolpidem (12/31/22 16:30) Acyclovir Capsule/Tablet (Acyclovir Ca (12/31/22 21:00) Bisacodyl Tablet (Bisacodyl Tablet) (12/31/22 16:30) Melatonin Tablet (Melatonin Tablet) (12/31/22 16:30) Patient May Use Own Meds, All (Patient M (12/31/22 16:30) Potassium Chloride (Tablet) (Potassium C (12/31/22 21:00) Sennosides Tablet (Sennosides Tablet) (12/31/22 16:30) Acetaminophen Tablet (Acetaminophen Ta (12/31/22 16:30) Ondansetron Injection (Ondansetron Inj (12/31/22 16:30) Oxycodone Immediate Rel Tablet (Oxycodon (12/31/22 16:30) Cpap (Set Up) (12/31/22 16:29) Consult Orthopedic Surgery (12/31/22 16:29) Iron Sucrose Injection (Venofer Injectio (01/01/23 09:00) Cefdinir Capsule (Cefdinir Capsule) (12/31/22 21:00) Phenazopyridine Tablet (Phenazopyridine (12/31/22 18:45) Phenazopyridine Tablet (Phenazopyridine (12/31/22 18:45) Cefdinir Capsule (Cefdinir Capsule) (12/31/22 20:08) Phenazopyridine Tablet (Phenazopyridine (12/31/22 20:01) Patient Visit (01/01/23 ) Speech Sound Lang Comp (01/01/23 ) Patient Visit (01/01/23 ) Dysphagia Evaluation Std (01/01/23 ) Zolpidem Tablet (Ambien Tablet) (01/01/23 13:15) Docusate Sodium Capsule (Docusate Sodium (01/01/23 13:15) Temazepam Capsule (Restoril Capsule) (01/01/23 13:30) Ondansetron Oral Dissolve Tab (Ondanset (01/01/23 13:30) Alprazolam Tablet (Alprazolam Tablet) (01/01/23 13:30) Morphine Ext Release Tablet (01/01/23 20:00) Rosuvastatin Tablet (Rosuvastatin Tablet (01/02/23 09:00) Gabapentin 600 Mg Tablet (Gabapentin 600 (01/01/23 21:00) Potassium Chloride (Tablet) (Potassium C (01/01/23 21:00) Potassium Chloride (Tablet) (Potassium C (12/31/22 20:10) Potassium Chloride (Tablet) (Potassium C (01/02/23 07:00) Pantoprazole Tablet (Pantoprazole Tablet (01/02/23 09:00) (Nf) Armor Thryoid (01/02/23 06:30) (Nf) Calcium + D3 (01/01/23 18:00) (Nf) Potassium Phosphate (01/01/23 21:00) Scopolamine Patch (Scopolamine Patch) (01/02/23 12:00) Patch Removal (Patch Removal) (01/05/23 12:15) Morphine Immediate Release Tab (Morphine (01/02/23 12:15) Ciprofloxacin Tablet (Ciprofloxacin Tabl (01/02/23 17:00) Rehab Nursing Orders: Ongoing Assess. of Cognitive Status, Ongoing Assess. of Function Status, Bladder Management, Bladder Scan, Bladder Training, Bowel Management, Bowel Training, Disease Management & Educaiton, DVT Prophylaxis, Fall Prevention, Fluid/Electrolyte/Nutrition Mgmt, Infection Prevention, Medication Management & Education, Management of Risks & Complications, Management of Skin Intergrity, Nutrition Management, Pain Management, Patient/Family Support, Safety Management, Wound Management Intensity of Therapy to be met Patient to be seen: Min.3h per day/5 of 7d PT IPOC Problem List: Activity Tolerance, Functional Strength, Safety, Balance, Gait, Transfer, Bed Mobility, ROM Treatment Plan: Continue Plan of Care Bed Mobility, Education, Functional Activity Natasha, Functional Strength, Group Therapy, Gait, Safety, Transfers Treatment Duration: Jan 01, 2023 Frequency: At least 5 of 7 days/Wk (IRF) Estimated Hrs Per Day: 1.5 hours per day OT IPOC Problems: Decreased Activ Tolerance, Decreased Safety Aware, Decreased UE Strength, Impaired Bed Mobility, Impaired Coordination, Impaired Funct Balance, Impaired I ADL's, Impaired Self-Care Skills OT Treatment, Training and Edu: Yes Plan of Care: ADL Retraining, Caregiver Training, Concurrent Therapy, Functional Mobility, Group Exercise/Act as Ind, UE Funct Exercise/Act Treatment Duration: Feb 06, 2023 Frequency: At least 5 of 7 days/Wk (IRF) Estimated Hrs Per Day: 1.[address] IPOC Speech Therapy Treatment Plan: Discontinue ST Treatment Duration: Jan 01, 2023 Frequency: 1 time per week Estimated Hrs Per Day: Other (Eval only ) Director [employer] Insurance/Case Mgmt Director [employer] Insurance/Case Managemen: Discharge Planning Dietitian/Show Host Or Hostess Dietitian/Show Host Or Hostess to monitor nutritional status and make changes and/or recommendations as needed and work with speech pathology on dietary upgrades as the occur. Physician IPOC Medical Issues being managed closely and that require the 24 hour availability of a physician: Recent hip fracture and uncomplicated repair with chronic kidney disease and multiple myeloma and chronic pain and resistant type of UTI will require close monitoring from physician due to complex medical management decisions Medical Issues: Bowel/Bladder Function, DVT Prophylaxis, Falls Precautions, Fluid/Electrolyte/Nutrition Balance, Infection Protection, Pain Management, Wound Care Brief Synthesis of Preadmission Screen, Post-Admission Evaluation, and Therapy E valuations: PT and OT will focus on regaining ambulatory function and stamina with use of a walker and will help increase independence in ADLs in order to be successful when returning home Medical Prognosis: Good Anticipated Length of Stay: 10 days AYAKA HAMM DO Jan 02, 2023 06:33
--- NOTE | 2023-01-02 07:48 | Occupational Ther Daily Note ---
OT Current Status-Daily Note Subjective Pt received sitting in recliner. Pt very pleasant and willing to participate in therapy. Pain Numeric Pain Scale: 3 Location: Incisional Location Body Site: Hip Pain Description: Ache Mental Status/Objective Patient Orientation: Person, Place, Time, Situation Attachments: IV ADL-Treatment Therapy Code Descriptions/Definitions Functional [place] Measure: 0=Not Assessed/NA 4=Minimal Assistance 1=Total Assistance 5=Supervision or Setup 2=Maximal Assistance 6=Modified [place] 3=Moderate Assistance 7=Complete IndependenceSCALE: Activities may be completed with or without assistive devices. 8-Wgynsnsvfx-rnzunyh completes the activity by him/herself with no assistance from a helper. 5-Set-up or Clean-up Assistance-helper sets up or cleans up; patient completes activity. [place] assists only prior to or following the activity. 4-Supervision or Touching Assistance-helper provides verbal cues and/or touching/steadying and/or contact guard assistance as patient completes activity. Assistance may be provided throughout the activity or intermittently. 3-Partial/Moderate Assistance-helper does LESS THAN HALF the effort. [place] lifts, holds or supports trunk or limbs, but provides less than half the effort. 2-Substantial/Maximal Assistance-helper does MORE THAN HALF the effort. [place] lifts or holds trunk or limbs and provides more than half the effort. 9-Zuebowkkm-wokvki does ALL the effort. Patient does none of the effort to complete the activity. Or, the assistance of 2 or more helpers is required for the patient to complete the activity. If activity was not attempted, code reason: 7-Patient Refused. 9-Not Applicable-not attempted and the patient did not perform the activity before the current illness, exacerbation or injury. 10-Not Attempted due to Environmental Limitations-(lack of equipment, weather restraints, etc.). 88-Not Attempted due to Medical Conditions or Safety Concerns. Eating (QC): 5 Oral Hygiene (QC): 5 (standing at sink ) Shower/Bathe Self (QC): 5 Upper Body Dressing (QC): 5 Lower Body Dressing (QC): 3 (with use of maintenance department manager; needed assistance to thread L LE through pant leg ) On/Off Footwear: 5 (to don/doff slippers with use of maintenance department manager) Toileting Hygiene (QC): 5 (in sitting ) Toilet Transfer (QC): 4 Other Treatment Pt completed fine motor activity in supported sitting for ~10 mins with supervision and no cues for safety or proper execution. Pt completed functional dynamic standing activity with 1# WW and FWW with supervision for balance, requiring no cues for safety. Pt completed dynamic functional sitting activity with use of green resistance clip and supervision for balance. Pt educated on and completed UE strengthening HEP with green theraband and blue foam, prioritizing shoulder flexion, abduction, adduction; elbow flexion, extension and environmental health physician strength with supervision. Education OT Patient Education: Correct positioning, Energy conservation, Home exercise program, Modified ADL techniques, Progress toward Goal/Update tx plan, Purpose of tx/functional activities, Reviewed precautions, Rehab process, Safety issues, Transfer techniques, Use of adapted equipment Teaching Recipient: Patient Teaching Methods: Demonstration, Discussion Response to Teaching: Verbalize Understanding, Return Demonstration OT Short Term Goals Short Term Goals Time Frame: Jan 08, 2023 Eatin Oral hygiene: 5 Toileting hygiene: 5 Shower/bathe self: 5 Upper body dressin Lower body dressin Putting on/taking off footwear: 5 OT Environmental Sustainability Manager Goals Senior Care Goals Time Frame: Jan 15, 2023 Acute change in mental status: 0 Inattention: 0 Disorganized thinkin Altered level of consciousness: 0 Eating (QC): 6 Oral Hygiene (QC): 6 Toileting Hygiene (QC): 6 Shower/Bathe Self (QC): 6 Upper Body Dressing (QC): 6 Lower Body Dressing (QC): 6 On/Off Footwear (QC): 6 1=Demonstrate adherence to instructed precautions during ADL tasks. 2=Patient will verbalize/demonstrate understanding of assistive device s/modifications for ADL. 3=Patient will improve strength/tolerance for activity to enable patient to perform ADL's. OT Education/Plan Problem List/Assessment Assessment: Decreased Activ Tolerance, Decreased Safety Aware, Decreased UE Strength, Impaired Bed Mobility, Impaired Coordination, Impaired Funct Balance, Impaired I ADL's, Impaired Self-Care Skills Discharge Recommendations Plan/Recommendations: Continue POC Treatment Plan/Plan of Care Treatment,Training & Education: Yes Patient would benefit from OT for education, treatment and training to promote independence in ADL's, mobility, safety and/or upper extremity function for ADL's. Plan of Care: ADL Retraining, Caregiver Training, Concurrent Therapy, Functional Mobility, Group Exercise/Act as Ind, UE Funct Exercise/Act Treatment Duration: Feb 06, 2023 Frequency: At least 5 of 7 days/Wk (IRF) Estimated Hrs Per Day: 1.5 hours per day Agreement: Yes Rehab Potential: Good Time Start Time: 07:20 Stop Time: 08:50 DATE: Jan 02, 2023 Total Time Billed (hr/min): 90 Billed Treatment Time 1, ADL 3, FA 2, EX 1 Selina Luis OTR/L Jan 02, 2023 07:48
[2023-01-02 08:00] VITALS: BP 133/76
[2023-01-02] MEDS: MORPHINE 30 MG PO SCH ×2 (08:14→20:05)
[2023-01-02] MEDS: ACYCLOVIR 400 MG CAPSULE/TABLET PO SCH ×2 (08:15→20:05)
[2023-01-02] MEDS: DOCUSATE SODIUM 100 MG CAPSULE PO SCH ×2 (08:15→20:05)
[2023-01-02] MEDS: ROSUVASTATIN 10 MG TABLET PO SCH (08:15)
[2023-01-02] MEDS: CEFDINIR 300 MG CAPSULE PO SCH (08:15)
[2023-01-02] MEDS: PANTOPRAZOLE 20 MG TABLET PO SCH (08:15)
[2023-01-02] MEDS: SENNA W/DOCUSATE TABLET PO SCH ×2 (08:15→20:05)
[2023-01-02] MEDS: D3 PO SCH ×2 (08:17→17:04)
[2023-01-02] MEDS: CALCIUM PO SCH ×2 (08:17→17:04)
[2023-01-02] MEDS: POTASSIUM PHOSPHATE PO SCH ×2 (09:00→20:07)
--- NOTE | 2023-01-02 11:01 | Physical Therapy Daily Note ---
PT Daily Note-Current Subjective Pt found seated in recliner upon entry. Agreed to PT. Rates L hip soreness 08/17 during treatment. States that she had 30mg of morphine but it has not kicked in yet. Pain Section J - Health Conditions 1. Rarely or not at all 2. Occasionally 3. Frequently 4. Almost constantly 8. Unable to answer Pain Effect on Sleep: 4 Pain Interference with Therapy: 4 Pain Interference w/Day-to-Day: 4 Mental Status Patient Orientation: Person, Place Transfers SCALE: Activities may be completed with or without assistive devices. 0-Lskgllsqwz-ohqduvt completes the activity by him/herself with no assistance from a helper. 5-Set-up or Clean-up Assistance-helper sets up or cleans up; patient completes activity. [place] assists only prior to or following the activity. 4-Supervision or Touching Assistance-helper provides verbal cues and/or touching/steadying and/or contact guard assistance as patient completes activity. Assistance may be provided throughout the activity or intermittently. 3-Partial/Moderate Assistance-helper does LESS THAN HALF the effort. [place] lifts, holds or supports trunk or limbs, but provides less than half the effort. 2-Substantial/Maximal Assistance-helper does MORE THAN HALF the effort. [place] lifts or holds trunk or limbs and provides more than half the effort. 6-Xqavawjsl-mmlkcd does ALL the effort. Patient does none of the effort to complete the activity. Or, the assistance of 2 or more helpers is required for the patient to complete the activity. If activity was not attempted, code reason: 7-Patient Refused. 9-Not Applicable-not attempted and the patient did not perform the activity before the current illness, exacerbation or injury. 10-Not Attempted due to Environmental Limitations-(lack of equipment, weather restraints, etc.). 88-Not Attempted due to Medical Conditions or Safety Concerns. Sit to Lying (QC): 3 Sit to Stand (QC): 4 Weight Bearing Right Lower Extremity: Right Weight Bearing/Tolerated Left Lower Extremity: Left Weight Bearing/Tolerated Standard precautions. Gait Training Does the Patient Walk?: Yes Distance: 150 feet x 2 Walk 10 feet (QC): 4 Walk 50 ft with 2 Turns(QC): 4 Walk 150 ft (QC): 4 Gait Persons Needed: 1 Gait Assistive Device: FWW Exercises NuStep Minutes: 15 NuStep Workload: 3 Treatments Standing Therapeutic Exercises (B) x 10ea: - Marching - Hip flx - Hip abd - Mini squats - Heel/toe raises - Side stepping x 1 trip in // Seated Therapeutic Exercises (B) x 10ea: - RTB hamstring curls - RTB hip abd - Hip add Balance Training x 30s ea: - WBOS - NBOS - Modified tandem x 2 - WBOS eyes closed - WBOS on airex - WBOS eyes closed on airex - NBOS on airex Assessment Current Status: Good Progress Pt performs sit to stand transfer from recliner /c SBA only for safety due to strength deficits. She ambulates /c use of a FWW up to 150 feet before requesting a seated rest break. Displays shortened step length on RLE versus L likely due to report of soreness increase /c weight bearing on L side. No loss of balance displayed during gait training. SBA provided during ambulation due to strength deficits and pain. Sitting to lying transfer provided /c MIN assist for LE lifting. Pt displays decent muscle strength and endurance /c all therapeutic interventions but does require occasional seated rest breaks to complete. Pt displays occasional loss of balance during balance training but tolerates well overall. Pt left supine in bed /c RN present, call light in place, and all needs met. Continue to progress pt per POC. PT Short Term Goals Short Term Goals Time Frame: Jan 15, 2023 Roll Left & Right: 5 Sit to lyin Lying to sitting on side of be: 5 Sit to stand: 5 Chair/its-rn-kejeb transfer: 5 Toilet transfer: 5 Car transfer: 5 Walk 10 feet: 5 Walk 50 feet with two turns: 5 Walk 150 feet: 5 Walking 10ft on uneven surface: 5 1 step (curb): 5 4 steps: 5 12 steps: 9 Picking up objects: 5 Does pt use a wc or scooter: No Wheel 50ft w/2 turns: 9 Wheel 150 feet: 9 Type: N/A PT Detention Goals Compressor Repairer Goals PT Compressor Repairer Goals Time Frame: Jan 22, 2023 Roll Left & Right (QC): 6 Sit to Lying (QC): 6 Lying-Sitting on Side/Bed(QC): 6 Sit to Stand (QC): 6 Chair/Yxt-id-Qqvas Xfer(QC): 6 Toilet Transfer (QC): 6 Car Transfer (QC): 6 Does the Patient Walk: Yes Walk 10 feet (QC): 6 Walk 50ft with 2 Turns (QC): 6 Walk 150 ft (QC): 6 Walking 10ft on Uneven Surface: 6 1 Step (curb) (QC): 6 4 Steps (QC): 6 12 Steps (QC): 9 Picking up an Object (QC): 6 Does the Pt use WC or Scooter?: No Wheel 50 feet with 2 turns (QC: 9 Type: N/A Wheel 150 feet: 9 Type: N/A PT Plan Treatment/Plan Treatment Plan: Continue Plan of Care Treatment Plan: Bed Mobility, Education, Functional Activity Natasha, Functional Strength, Group Therapy, Gait, Safety, Transfers Treatment Duration: Jan 01, 2023 Frequency: At least 5 of 7 days/Wk (IRF) Estimated Hrs Per Day: 1.5 hours per day Patient and/or Family Agrees t: Yes Time Time In: 0930 Time Out: 1100 DATE: Jan 02, 2023 Total Billed Treatment Time: 90 Total Billed Treatment 1 visit EX x 3 GT x 2 FA x 1 JAYSON HERRERA MINING TECHNICIAN Jan 02, 2023 11:01
[2023-01-02] MEDS: ONDANSETRON 4 MG ORAL DISSOLVE TABLET PO PRN (11:06)
[2023-01-02] MEDS ORDERED: SCOPOLAMINE 1.5 MG PATCH TD ONE (12:00)
[2023-01-02] MEDS: CIPROFLOXACIN 500 MG TABLET PO SCH (17:04)
[2023-01-02 19:49] VITALS: BP 120/70
[2023-01-02] MEDS: POTASSIUM CHLORIDE 10 MEQ TABLET PO SCH (20:05)
[2023-01-02] MEDS: GABAPENTIN 600 MG TABLET PO SCH (20:05)
[2023-01-03] MEDS: morphine IMMEDIATE RELEASE 15 MG TABLET PO PRN (05:19)
[2023-01-03] MEDS: THYROID PO SCH (05:21)
--- NOTE | 2023-01-03 06:44 | PM&R Progress Note ---
Subjective HPI/CC On Admission Date Seen by Provider: Jan 03, 2023 Time Seen by Provider: 12:30 Subjective/Events-last exam 01/03/2023: Patient doing well Discussed changing antibiotics due to resistance on urine culture Reviewed meds and labs Check labs in the morning 01/02/2023: Patient doing well Supportive care continues Urine culture reviewed so we will shift from cefdinir to Cipro Changing pain medication to immediate release morphine if she needs just as she does at home 01/01/2023: Patient doing well Family visiting today UTI placed on Omnicef empirically Hemoglobin increased after 1 unit of blood yesterday Feels good Pain controlled Review of Systems General: Fatigue, Malaise Musculoskeletal: leg pain Objective Exam Vital Signs Vital Signs Date Time Temp Pulse Resp B/P (MAP) Pulse Ox O2 Delivery O2 Flow Rate FiO2 01/03/23 09:30 Room Air 01/03/23 08:00 35.9 88 20 106/56 (73) 93 01/02/23 10:27 0.00 Capillary Refill : General Appearance: No Apparent Distress, WD/WN, Chronically ill HEENT: PERRL/EOMI, Normal ENT Inspection, Pharynx Normal Neck: Full Range of Motion, Normal Inspection, Non Tender, Supple, Carotid Bruit Respiratory: Chest Non Tender, Lungs Clear, Normal Breath Sounds, No Accessory Muscle Use, No Respiratory Distress Cardiovascular: Regular Rate, Rhythm, No Edema, No Gallop, No JVD, No Murmur, Normal Peripheral Pulses Gastrointestinal: Normal Bowel Sounds, No Organomegaly, No Pulsatile Mass, Non Tender, Soft Back: Normal Inspection, No CVA Tenderness, No Vertebral Tenderness Extremity: Normal Capillary Refill, Normal Inspection, Normal Range of Motion (except left leg), Non Tender, No Calf Tenderness, No Pedal Edema Neurologic/Psychiatric: Alert, Oriented x3, Normal Mood/Affect, yard conductor II-XII Norm as Tested, Abnormal Gait, Motor Weakness (left leg) Skin: Normal Color, Warm/Dry Lymphatic: No Adenopathy Results/Procedures Lab Patient resulted labs reviewed. FIM Transfers Therapy Code Descriptions/Definitions Functional [place] Measure: 0=Not Assessed/NA 4=Minimal Assistance 1=Total Assistance 5=Supervision or Setup 2=Maximal Assistance 6=Modified [place] 3=Moderate Assistance 7=Complete IndependenceSCALE: Activities may be completed with or without assistive devices. 9-Sroiykmsez-iyrxraj completes the activity by him/herself with no assistance from a helper. 5-Set-up or Clean-up Assistance-helper sets up or cleans up; patient completes activity. [place] assists only prior to or following the activity. 4-Supervision or Touching Assistance-helper provides verbal cues and/or touching/steadying and/or contact guard assistance as patient completes activity. Assistance may be provided throughout the activity or intermittently. 3-Partial/Moderate Assistance-helper does LESS THAN HALF the effort. [place] lifts, holds or supports trunk or limbs, but provides less than half the effort. 2-Substantial/Maximal Assistance-helper does MORE THAN HALF the effort. [place] lifts or holds trunk or limbs and provides more than half the effort. 0-Jnfmchyiu-hgkmzf does ALL the effort. Patient does none of the effort to complete the activity. Or, the assistance of 2 or more helpers is required for the patient to complete the activity. If activity was not attempted, code reason: 7-Patient Refused. 9-Not Applicable-not attempted and the patient did not perform the activity before the current illness, exacerbation or injury. 10-Not Attempted due to Environmental Limitations-(lack of equipment, weather restraints, etc.). 88-Not Attempted due to Medical Conditions or Safety Concerns. Roll Left to Right (QC): 4 Sit to Lying (QC): 3 Sit to Stand (QC): 4 Chair/Lzz-qq-Nybgk Xfer(QC): 3 Car Transfer (QC): 3 Gait Training Does the Patient Walk?: Yes Distance: 150 feet x 2 Walk 10 feet (QC): 4 Walk 50 ft with 2 Turns(QC): 4 Walk 150 ft (QC): 4 Walking 10ft/uneven surface-QC: 88 Gait Persons Needed: 1 Gait Assistive Device: FWW Wheelchair Training Does the Pt Use a Wheelchair?: No Distance: NA Wheel 50 ft with 2 turns (QC): 9 Wheel 150 ft (QC): 9 Type of Wheelchair: N/A Stair Training #of Steps: 2 1 Step (curb) (QC): 3 4 Steps (QC): 4 12 Steps (QC): 88 Balance Picking up an Object (QC): 88 ADL-Treatment Eating (QC): 5 Oral Hygiene (QC): 5 (standing at sink ) Shower/Bathe Self (QC): 5 Upper Body Dressing (QC): 5 Lower Body Dressing (QC): 3 (with use of plaster helper; needed assistance to thread L LE through pant leg ) On/Off Footwear (QC): 5 (to don/doff slippers with use of plaster helper) Toileting Hygiene (QC): 5 (in sitting ) Toilet Transfer (QC): 4 Assessment/Plan Assessment and Plan Assess & Plan/Chief Complaint Assessment: Left femur fracture Hypertension Postop anemia from acute blood loss requiring 1 unit of blood on 12/31/22 Debility Post op UTI symptomatic-placed on abx placed on Cipro MM on chemo Plan: Pain control Inpatient rehab protocol Bowel regimen Monitor labs 01/01/2023: Monitor hemoglobin Await urine culture 01/02/2023: Change antibiotics from cefdinir to Cipro Add immediate release morphine as she does at home 01/03/2023: Maintain Cipro Supportive care (1) Closed left hip fracture Status: Acute (2) Multiple myeloma Status: Chronic (3) Anemia Status: Chronic AYAKA HAMM DO Jan 03, 2023 06:44
[2023-01-03] MEDS: POTASSIUM CHLORIDE 20 MEQ TABLET PO SCH (06:57)
[2023-01-03 08:00] VITALS: BP 106/56
[2023-01-03] MEDS: MORPHINE 30 MG PO SCH ×2 (08:09→20:09)
[2023-01-03] MEDS: ACYCLOVIR 400 MG CAPSULE/TABLET PO SCH ×2 (08:10→20:10)
[2023-01-03] MEDS: DOCUSATE SODIUM 100 MG CAPSULE PO SCH ×2 (08:10→20:09)
[2023-01-03] MEDS: POTASSIUM PHOSPHATE PO SCH ×2 (08:10→20:11)
[2023-01-03] MEDS: ROSUVASTATIN 10 MG TABLET PO SCH (08:10)
[2023-01-03] MEDS: SENNA W/DOCUSATE TABLET PO SCH ×2 (08:10→20:10)
[2023-01-03] MEDS: PANTOPRAZOLE 20 MG TABLET PO SCH (08:10)
[2023-01-03] MEDS: IRON SUCROSE 200 MG/10 ML VIAL IV SCH (08:11)
[2023-01-03] MEDS: D3 PO SCH ×2 (08:11→17:04)
[2023-01-03] MEDS: CALCIUM PO SCH ×2 (08:11→17:04)
[2023-01-03] MEDS ORDERED: METOCLOPRAMIDE 10 MG TABLET PO PRN (11:30)
[2023-01-03] MEDS: METOCLOPRAMIDE 10 MG TABLET PO SCH ×3 (11:48→20:09)
[2023-01-03] MEDS: CIPROFLOXACIN 500 MG TABLET PO SCH (17:04)
[2023-01-03 20:06] VITALS: BP 137/71
[2023-01-03] MEDS: GABAPENTIN 600 MG TABLET PO SCH (20:10)
[2023-01-03] MEDS: POTASSIUM CHLORIDE 10 MEQ TABLET PO SCH (20:11)
[2023-01-04] MEDS: THYROID PO SCH (05:32)
[2023-01-04 06:25] LABS: HEMOGLOBIN 9.7 g/dL (11.5-16.0); MEAN CORPUSCULAR VOLUME 103 fL (80-99); MONOCYTES # (AUTO) 0.9 10^3/uL (0.0-1.0)
[2023-01-04] MEDS: METOCLOPRAMIDE 10 MG TABLET PO SCH ×4 (06:25→20:38)
[2023-01-04] MEDS: POTASSIUM CHLORIDE 20 MEQ TABLET PO SCH (06:25)
[2023-01-04 06:26] LABS: BASOPHILS % (AUTO) 0 % (0-10); EOSINOPHILS # (AUTO) 0.1 10^3/uL (0.0-0.3); EOSINOPHILS % (AUTO) 3 % (0-10); HEMATOCRIT 29 % (35-52); LYMPHOCYTES # (AUTO) 1.3 10^3/uL (1.0-4.0); LYMPHOCYTES % (AUTO) 22 % (12-44); MEAN CORPUSCULAR HEMOGLOBIN 35 pg (25-34); MEAN CORPUSCULAR HGB CONC 33 g/dL (32-36); MEAN PLATELET VOLUME 10.6 fL (9.0-12.2); MONOCYTES % (AUTO) 16 % (0-12); NEUTROPHILS # (AUTO) 3.3 10^3/uL (1.8-7.8); NEUTROPHILS % (AUTO) 58 % (42-75); PLATELET COUNT 116 10^3/uL (130-400); WHITE BLOOD COUNT 5.6 10^3/uL (4.3-11.0)
[2023-01-04 06:35] LABS: ALBUMIN 2.9 GM/DL (3.2-4.5)
[2023-01-04 06:36] LABS: CALCIUM 8.4 MG/DL (8.5-10.1)
[2023-01-04 06:37] LABS: TOTAL PROTEIN 4.7 GM/DL (6.4-8.2)
[2023-01-04 06:39] LABS: BILIRUBIN,TOTAL 0.7 MG/DL (0.1-1.0)
[2023-01-04 06:41] LABS: CREATININE SERUM 1.35 MG/DL (0.60-1.30)
--- NOTE | 2023-01-04 07:15 | PM&R Progress Note ---
Subjective HPI/CC On Admission Date Seen by Provider: Jan 04, 2023 Time Seen by Provider: 09:00 Subjective/Events-last exam 01/04/2023: Patient doing really well Moving around really well Pain is controlled Tolerating Cipro well 01/03/2023: Patient doing well Discussed changing antibiotics due to resistance on urine culture Reviewed meds and labs Check labs in the morning 01/02/2023: Patient doing well Supportive care continues Urine culture reviewed so we will shift from cefdinir to Cipro Changing pain medication to immediate release morphine if she needs just as she does at home 01/01/2023: Patient doing well Family visiting today UTI placed on Omnicef empirically Hemoglobin increased after 1 unit of blood yesterday Feels good Pain controlled Review of Systems General: Fatigue, Malaise Objective Exam Vital Signs Vital Signs Date Time Temp Pulse Resp B/P (MAP) Pulse Ox O2 Delivery O2 Flow Rate FiO2 01/04/23 21:15 96 NIV CPAP 01/04/23 20:19 36.5 82 16 122/58 (79) 01/04/23 07:19 0.00 Capillary Refill : General Appearance: No Apparent Distress, WD/WN, Chronically ill HEENT: PERRL/EOMI, Normal ENT Inspection, Pharynx Normal Neck: Full Range of Motion, Normal Inspection, Non Tender, Supple, Carotid Bruit Respiratory: Chest Non Tender, Lungs Clear, Normal Breath Sounds, No Accessory Muscle Use, No Respiratory Distress Cardiovascular: Regular Rate, Rhythm, No Edema, No Gallop, No JVD, No Murmur, Normal Peripheral Pulses Gastrointestinal: Normal Bowel Sounds, No Organomegaly, No Pulsatile Mass, Non Tender, Soft Back: Normal Inspection, No CVA Tenderness, No Vertebral Tenderness Extremity: Normal Capillary Refill, Normal Inspection, Normal Range of Motion (except left leg), Non Tender, No Calf Tenderness, No Pedal Edema Neurologic/Psychiatric: Alert, Oriented x3, Normal Mood/Affect, director of quality improvement II-XII Norm as Tested, Abnormal Gait, Motor Weakness (left leg) Skin: Normal Color, Warm/Dry Lymphatic: No Adenopathy Results/Procedures Lab Laboratory Tests 01/04/23 05:30 Patient resulted labs reviewed. FIM Transfers Therapy Code Descriptions/Definitions Functional [place] Measure: 0=Not Assessed/NA 4=Minimal Assistance 1=Total Assistance 5=Supervision or Setup 2=Maximal Assistance 6=Modified [place] 3=Moderate Assistance 7=Complete IndependenceSCALE: Activities may be completed with or without assistive devices. 3-Urjvycvgvp-tqbujwg completes the activity by him/herself with no assistance from a helper. 5-Set-up or Clean-up Assistance-helper sets up or cleans up; patient completes activity. [place] assists only prior to or following the activity. 4-Supervision or Touching Assistance-helper provides verbal cues and/or touching/steadying and/or contact guard assistance as patient completes activity. Assistance may be provided throughout the activity or intermittently. 3-Partial/Moderate Assistance-helper does LESS THAN HALF the effort. [place] lifts, holds or supports trunk or limbs, but provides less than half the effort. 2-Substantial/Maximal Assistance-helper does MORE THAN HALF the effort. [place] lifts or holds trunk or limbs and provides more than half the effort. 9-Lbeskweqh-efmhfg does ALL the effort. Patient does none of the effort to complete the activity. Or, the assistance of 2 or more helpers is required for the patient to complete the activity. If activity was not attempted, code reason: 7-Patient Refused. 9-Not Applicable-not attempted and the patient did not perform the activity before the current illness, exacerbation or injury. 10-Not Attempted due to Environmental Limitations-(lack of equipment, weather restraints, etc.). 88-Not Attempted due to Medical Conditions or Safety Concerns. Roll Left to Right (QC): 4 Sit to Lying (QC): 3 Sit to Stand (QC): 4 Chair/Gwx-pe-Vbnwg Xfer(QC): 3 Car Transfer (QC): 3 Gait Training Does the Patient Walk?: Yes Distance: 150 feet x 2 Walk 10 feet (QC): 4 Walk 50 ft with 2 Turns(QC): 4 Walk 150 ft (QC): 4 Walking 10ft/uneven surface-QC: 88 Gait Persons Needed: 1 Gait Assistive Device: FWW Wheelchair Training Does the Pt Use a Wheelchair?: No Distance: NA Wheel 50 ft with 2 turns (QC): 9 Wheel 150 ft (QC): 9 Type of Wheelchair: N/A Stair Training #of Steps: 2 1 Step (curb) (QC): 3 4 Steps (QC): 4 12 Steps (QC): 88 Balance Picking up an Object (QC): 88 ADL-Treatment Eating (QC): 5 Oral Hygiene (QC): 5 (standing at sink ) Shower/Bathe Self (QC): 5 Upper Body Dressing (QC): 5 Lower Body Dressing (QC): 3 (with use of testing tech; needed assistance to thread L LE through pant leg ) On/Off Footwear (QC): 5 (to don/doff slippers with use of testing tech) Toileting Hygiene (QC): 5 (in sitting ) Toilet Transfer (QC): 4 Assessment/Plan Assessment and Plan Assess & Plan/Chief Complaint Assessment: Left femur fracture Hypertension Postop anemia from acute blood loss requiring 1 unit of blood on 12/31/22 Debility Post op UTI symptomatic-placed on abx placed on Cipro MM on chemo Plan: Pain control Inpatient rehab protocol Bowel regimen Monitor labs 01/01/2023: Monitor hemoglobin Await urine culture 01/02/2023: Change antibiotics from cefdinir to Cipro Add immediate release morphine as she does at home 01/03/2023: Maintain Cipro Supportive care 01/04/2023: Continue pain control Bowel regimen to maintain Cipro (1) Closed left hip fracture Status: Acute (2) Multiple myeloma Status: Chronic (3) Anemia Status: Chronic AYAKA HAMM DO Jan 04, 2023 07:15
[2023-01-04 08:00] VITALS: BP 105/56
[2023-01-04] MEDS: PANTOPRAZOLE 20 MG TABLET PO SCH (08:13)
[2023-01-04] MEDS: MORPHINE 30 MG PO SCH ×2 (08:13→20:39)
[2023-01-04] MEDS: ROSUVASTATIN 10 MG TABLET PO SCH (08:13)
[2023-01-04] MEDS: ACYCLOVIR 400 MG CAPSULE/TABLET PO SCH ×2 (08:13→20:40)
[2023-01-04] MEDS: SENNA W/DOCUSATE TABLET PO SCH ×2 (08:14→20:38)
--- NOTE | 2023-01-04 09:29 | Physical Therapy Daily Note ---
PT Daily Note-Current Subjective Pt presents sitting in recliner with B feet on floor. Pt reports 6/10 pain in (L) hip. Pt states her daily pain with multiple myeloma is 5/10. Pt is agreeable to PT tx. Pain Section J - Health Conditions 1. Rarely or not at all 2. Occasionally 3. Frequently 4. Almost constantly 8. Unable to answer Pain Effect on Sleep: 4 Pain Interference with Therapy: 4 Pain Interference w/Day-to-Day: 4 Mental Status Patient Orientation: Person, Place, Time, Situation Attachments: IV Transfers SCALE: Activities may be completed with or without assistive devices. 7-Rowwkxpywc-pcfspwi completes the activity by him/herself with no assistance from a helper. 5-Set-up or Clean-up Assistance-helper sets up or cleans up; patient completes activity. [place] assists only prior to or following the activity. 4-Supervision or Touching Assistance-helper provides verbal cues and/or touching/steadying and/or contact guard assistance as patient completes activity. Assistance may be provided throughout the activity or intermittently. 3-Partial/Moderate Assistance-helper does LESS THAN HALF the effort. [place] lifts, holds or supports trunk or limbs, but provides less than half the effort. 2-Substantial/Maximal Assistance-helper does MORE THAN HALF the effort. [place] lifts or holds trunk or limbs and provides more than half the effort. 9-Mqzvgydrc-tqojqv does ALL the effort. Patient does none of the effort to complete the activity. Or, the assistance of 2 or more helpers is required for the patient to complete the activity. If activity was not attempted, code reason: 7-Patient Refused. 9-Not Applicable-not attempted and the patient did not perform the activity before the current illness, exacerbation or injury. 10-Not Attempted due to Environmental Limitations-(lack of equipment, weather restraints, etc.). 88-Not Attempted due to Medical Conditions or Safety Concerns. Roll Left & Right (QC): 6 Sit to Lying (QC): 6 Lying to Sitting/Side of Bed(Q: 6 Sit to Stand (QC): 6 Chair/Obz-ww-Fjgkg Xfer(QC): 6 Car Transfer (QC): 6 Weight Bearing Right Lower Extremity: Right Weight Bearing/Tolerated Left Lower Extremity: Left Weight Bearing/Tolerated Standard precautions. Gait Training Does the Patient Walk?: Yes Walk 10 feet (QC): 4 Walk 50 ft with 2 Turns(QC): 4 Walking 10ft/uneven surface-QC: 4 Gait Assistive Device: FWW Pt amb 80' x 2, 50' x 2, /c FWW, SBA for safety. Wheelchair Training Does the Pt Use a Wheelchair?: No Stair Training Stair Training: Handrails/: 2 handrails 1 Step (curb) (QC): 4 4 Steps (QC): 4 12 Steps (QC): 4 Stairs: Pattern: Step to Balance Picking up an Object (QC): 6 Special Test Comments With service technician copier and (L) UE support on FWW. Exercises Supine Ex: Rolling, Heel Slides, Straight leg raise, Hip abd/add Seated Therapy Exercises: Sit to stand, Long arc quads, Hamstring Curls, Hip abd/add Standing: Hip Abduction, Heel/toe raises, Marching Treatments Pt amb from room and around ARU with FWW, SBA for safety. Pt conducted Quality Code checks in therapy gym and ARU. Pt amb from ARU hallway back to room. Post tx with pt in recliner, call light within reach and all needs met. Assessment Current Status: Good Progress Pt requiring multiple RB's secondary to pain and fatigue. PT Short Term Goals Short Term Goals Time Frame: Jan 15, 2023 Roll Left & Right: 5 Sit to lyin Lying to sitting on side of be: 5 Sit to stand: 5 Chair/tdk-yz-dyqtx transfer: 5 Toilet transfer: 5 Car transfer: 5 Walk 10 feet: 5 Walk 50 feet with two turns: 5 Walk 150 feet: 5 Walking 10ft on uneven surface: 5 1 step (curb): 5 4 steps: 5 12 steps: 9 Picking up objects: 5 Does pt use a wc or scooter: No Wheel 50ft w/2 turns: 9 Wheel 150 feet: 9 Type: N/A PT Md Psychiatry Goals [facility] Goals PT Md Psychiatry Goals Time Frame: Jan 22, 2023 Roll Left & Right (QC): 6 Sit to Lying (QC): 6 Lying-Sitting on Side/Bed(QC): 6 Sit to Stand (QC): 6 Chair/Eqs-ls-Qfjjh Xfer(QC): 6 Toilet Transfer (QC): 6 Car Transfer (QC): 6 Does the Patient Walk: Yes Walk 10 feet (QC): 6 Walk 50ft with 2 Turns (QC): 6 Walk 150 ft (QC): 6 Walking 10ft on Uneven Surface: 6 1 Step (curb) (QC): 6 4 Steps (QC): 6 12 Steps (QC): 9 Picking up an Object (QC): 6 Does the Pt use WC or Scooter?: No Wheel 50 feet with 2 turns (QC: 9 Type: N/A Wheel 150 feet: 9 Type: N/A PT Plan Problem List Problem List: Activity Tolerance, Functional Strength, ROM Treatment/Plan Treatment Plan: Continue Plan of Care Treatment Plan: Bed Mobility, Education, Functional Activity Natasha, Functional Strength, Group Therapy, Gait, Safety, Transfers Treatment Duration: Jan 01, 2023 Frequency: At least 5 of 7 days/Wk (IRF) Estimated Hrs Per Day: 1.5 hours per day Patient and/or Family Agrees t: Yes Safety Risks/Education Patient Education: Reviewed Precautions, Safety Issues Teaching Recipient: Patient Teaching Methods: Discussion Response to Teaching: Verbalize Understanding, Return Demonstration Discharge Recommendations Plan Continue with tx per pt POC. Time Time In: 0800 Time Out: 929 DATE: Jan 04, 2023 Total Billed Treatment Time: 90 Total Billed Treatment 1, FA (15m), GT2 (30m), EX3 (45m) ANA LUISA PURVIS PTA Jan 04, 2023 09:29
[2023-01-04] MEDS: CALCIUM PO SCH ×2 (09:47→17:21)
[2023-01-04] MEDS: D3 PO SCH ×2 (09:47→17:21)
[2023-01-04] MEDS: POTASSIUM PHOSPHATE PO SCH ×2 (09:48→20:40)
[2023-01-04] MEDS: DOCUSATE SODIUM 100 MG CAPSULE PO SCH ×2 (09:49→20:38)
--- NOTE | 2023-01-04 12:12 | Occupational Ther Daily Note ---
OT Current Status-Daily Note Subjective Pt. alert sitting in recliner. No c/o pain at this time. Pt. agreed to therapy. Mental Status/Objective Patient Orientation: Person, Place, Time, Situation Attachments: Central Line ADL-Treatment Pt. agreed to shower. Pt. able to ambulate to gather UB/LB dressing using FWW. Pt. completed home task using FWW to ambulate from room to laundry room to start laundry by self. After session, pt in recliner eating lunch with call light and phone in reach and all needs met. Therapy Code Descriptions/Definitions Functional [place] Measure: 0=Not Assessed/NA 4=Minimal Assistance 1=Total Assistance 5=Supervision or Setup 2=Maximal Assistance 6=Modified [place] 3=Moderate Assistance 7=Complete IndependenceSCALE: Activities may be completed with or without assistive devices. 8-Wivjhobqzm-worxnik completes the activity by him/herself with no assistance from a helper. 5-Set-up or Clean-up Assistance-helper sets up or cleans up; patient completes activity. [place] assists only prior to or following the activity. 4-Supervision or Touching Assistance-helper provides verbal cues and/or touching/steadying and/or contact guard assistance as patient completes activity. Assistance may be provided throughout the activity or intermittently. 3-Partial/Moderate Assistance-helper does LESS THAN HALF the effort. [place] lifts, holds or supports trunk or limbs, but provides less than half the effort. 2-Substantial/Maximal Assistance-helper does MORE THAN HALF the effort. [place] lifts or holds trunk or limbs and provides more than half the effort. 7-Vqmtgihzo-xevptz does ALL the effort. Patient does none of the effort to complete the activity. Or, the assistance of 2 or more helpers is required for the patient to complete the activity. If activity was not attempted, code reason: 7-Patient Refused. 9-Not Applicable-not attempted and the patient did not perform the activity before the current illness, exacerbation or injury. 10-Not Attempted due to Environmental Limitations-(lack of equipment, weather restraints, etc.). 88-Not Attempted due to Medical Conditions or Safety Concerns. Eating (QC): 6 (Pt. IND with eating.) Oral Hygiene (QC): 6 (Pt. completes grooming/oral hygiene while sitting at sink.) Bathing Location: L Arm, R Arm, L Upper Leg, R Upper Leg, L Lower Leg (including foot), R Lower Leg (including foot), Chest, Abdomen, Buttocks, Perineal Area Shower/Bathe Self (QC): 6 (Pt. able to bathe all areas while sitting 95% of the time on shower bench stands to clean buttocks/joanne area using HH shower and grabbars.) Upper Body Dressing (QC): 6 (Pt. able to don/doff UB dressing.) Lower Body Dressing (QC): 6 (Pt. able to don/doff underwear/pants while hiking leg to thread and stands using FWW while stabilizing to hike over hips.) On/Off Footwear: 6 (Pt. able to lift knees up to don/doff socks. ) Toileting Hygiene (QC): 6 (Pt. completes clothing manipulation using FWW and grabbars and cleanses all areas by self.) Toilet Transfer (QC): 6 (Pt. completes toilet transfers using FWW and grabbars. ) BIMS CAM BIMS Expression of Ideas and Wants: Without Difficulty Understanding Verbal Content: Understands Brief Interview/Mental Status: No IRF DIANE BIMS: IRF DIANE BIMS Response (Comments) Value Repitition of Three Words Three 3 Recalls Socks Yes, No Cue Required 2 Recalls Blue Yes, No Cue Required 2 Recalls Bed Yes, No Cue Required 2 Year Correct 3 Month Accurate Within 5 Days 2 Day Correct 1 Total 15 Patient Normally Able to Recal: Current Session, Location of own room, Staff Names and faces, That he/she in a [facility] Should Staff Asses. Mental St.: No Memory/Recall Ability: Current Season, Location of Own Room, Staff Names and Faces, That [facility]She in [facility] Mental Status Change/Baseline: 0 Inattention: 0 Disorganized thinkin Altered level of consciousness: 0 OT Short Term Goals Short Term Goals Time Frame: Jan 08, 2023 Eatin Oral hygiene: 5 Toileting hygiene: 5 Shower/bathe self: 5 Upper body dressin Lower body dressin Putting on/taking off footwear: 5 OT Senior Living Goals Senior Living Goals Time Frame: Jan 15, 2023 Acute change in mental status: 0 Inattention: 0 Disorganized thinkin Altered level of consciousness: 0 Eating (QC): 6 Oral Hygiene (QC): 6 Toileting Hygiene (QC): 6 Shower/Bathe Self (QC): 6 Upper Body Dressing (QC): 6 Lower Body Dressing (QC): 6 On/Off Footwear (QC): 6 1=Demonstrate adherence to instructed precautions during ADL tasks. 2=Patient will verbalize/demonstrate understanding of assistive devices/mo difications for ADL. 3=Patient will improve strength/tolerance for activity to enable patient to perform ADL's. OT Education/Plan Problem List/Assessment Assessment: Decreased UE Strength, Impaired Funct Balance, Impaired Self-Care Skills Discharge Recommendations Plan/Recommendations: Continue POC Treatment Plan/Plan of Care Patient would benefit from OT for education, treatment and training to promote independence in ADL's, mobility, safety and/or upper extremity function for ADL's. Plan of Care: ADL Retraining, Caregiver Training, Concurrent Therapy, Functional Mobility, Group Exercise/Act as Ind, UE Funct Exercise/Act Treatment Duration: Feb 06, 2023 Frequency: At least 5 of 7 days/Wk (IRF) Estimated Hrs Per Day: 1.5 hours per day Agreement: Yes Rehab Potential: Good Time Start Time: 10:45 Stop Time: 12:15 DATE: Jan 04, 2023 Total Time Billed (hr/min): 90 Billed Treatment Time 1 visit- ADL 4 (60 mins) FA 2 (30 min) CATHRYN HOFFMANN Jan 04, 2023 12:11
[2023-01-04] MEDS: morphine IMMEDIATE RELEASE 15 MG TABLET PO PRN (14:12)
[2023-01-04] MEDS: CIPROFLOXACIN 500 MG TABLET PO SCH (17:20)
[2023-01-04 20:19] VITALS: BP 122/58
[2023-01-04] MEDS: POTASSIUM CHLORIDE 10 MEQ TABLET PO SCH (20:39)
[2023-01-04] MEDS: GABAPENTIN 600 MG TABLET PO SCH (20:39)
[2023-01-05] MEDS: THYROID PO SCH (06:06)
[2023-01-05] MEDS: METOCLOPRAMIDE 10 MG TABLET PO SCH ×4 (06:07→20:39)
[2023-01-05] MEDS: POTASSIUM CHLORIDE 20 MEQ TABLET PO SCH (06:07)
[2023-01-05 07:56] VITALS: BP_SYST 114; BP_SYST 143; BP_DIAS 58; BP_DIAS 65
--- NOTE | 2023-01-05 08:14 | Occupational Ther Daily Note ---
OT Current Status-Daily Note Subjective Pt. alert sitting in recliner. No c/o pain at this time. Pt. agreed to therapy. Mental Status/Objective Patient Orientation: Person, Place, Time, Situation Attachments: Central Line ADL-Treatment Pt. agreed to shower. Pt. able to ambulate with FWW to gather UB/LB dressing by self. After session, pt in recliner with call light and phone in reach and all needs met. Therapy Code Descriptions/Definitions Functional [place] Measure: 0=Not Assessed/NA 4=Minimal Assistance 1=Total Assistance 5=Supervision or Setup 2=Maximal Assistance 6=Modified [place] 3=Moderate Assistance 7=Complete IndependenceSCALE: Activities may be completed with or without assistive devices. 4-Bbhvgthhqx-mwiyidx completes the activity by him/herself with no assistance from a helper. 5-Set-up or Clean-up Assistance-helper sets up or cleans up; patient completes activity. [place] assists only prior to or following the activity. 4-Supervision or Touching Assistance-helper provides verbal cues and/or touching/steadying and/or contact guard assistance as patient completes activity. Assistance may be provided throughout the activity or intermittently. 3-Partial/Moderate Assistance-helper does LESS THAN HALF the effort. [place] lifts, holds or supports trunk or limbs, but provides less than half the effort. 2-Substantial/Maximal Assistance-helper does MORE THAN HALF the effort. [place] lifts or holds trunk or limbs and provides more than half the effort. 5-Yxmvazuxb-mwokcq does ALL the effort. Patient does none of the effort to complete the activity. Or, the assistance of 2 or more helpers is required for the patient to complete the activity. If activity was not attempted, code reason: 7-Patient Refused. 9-Not Applicable-not attempted and the patient did not perform the activity b efore the current illness, exacerbation or injury. 10-Not Attempted due to Environmental Limitations-(lack of equipment, weather restraints, etc.). 88-Not Attempted due to Medical Conditions or Safety Concerns. Eating (QC): 6 (Pt. IND with eating.) Oral Hygiene (QC): 6 (Pt. completes grooming/oral hygiene while standing at sink.) Bathing Location: L Arm, R Arm, L Upper Leg, R Upper Leg, L Lower Leg (including foot), R Lower Leg (including foot), Chest, Abdomen, Buttocks, Perineal Area Shower/Bathe Self (QC): 6 (Pt. able to bathe all areas while sitting on shower transfer bench 95% of time and stands to clean buttocks and joanne area using HH shower and grabbars.) Upper Body Dressing (QC): 6 (Pt. able to don/doff UB dressing.) Lower Body Dressing (QC): 6 (Pt. able to don/doff LB dressing.) On/Off Footwear: 6 (Pt. able to don/doff socks and slippers using sock aide.) OT Short Term Goals Short Term Goals Time Frame: Jan 08, 2023 Eatin Oral hygiene: 5 Toileting hygiene: 5 Shower/bathe self: 5 Upper body dressin Lower body dressin Putting on/taking off footwear: 5 OT Alf Goals [employer]ing [employer] Tech Goals Time Frame: Jan 15, 2023 Acute change in mental status: 0 Inattention: 0 Disorganized thinkin Altered level of consciousness: 0 Eating (QC): 6 Oral Hygiene (QC): 6 Toileting Hygiene (QC): 6 Shower/Bathe Self (QC): 6 Upper Body Dressing (QC): 6 Lower Body Dressing (QC): 6 On/Off Footwear (QC): 6 1=Demonstrate adherence to instructed precautions during ADL tasks. 2=Patient will verbalize/demonstrate understanding of assistive devices/modifications for ADL. 3=Patient will improve strength/tolerance for activity to enable patient to perf orm ADL's. OT Education/Plan Problem List/Assessment Assessment: Decreased UE Strength, Impaired Funct Balance, Impaired Self-Care Skills Discharge Recommendations Plan/Recommendations: Continue POC Treatment Plan/Plan of Care Patient would benefit from OT for education, treatment and training to promote independence in ADL's, mobility, safety and/or upper extremity function for ADL's. Plan of Care: ADL Retraining, Caregiver Training, Concurrent Therapy, Functional Mobility, Group Exercise/Act as Ind, UE Funct Exercise/Act Treatment Duration: Feb 06, 2023 Frequency: At least 5 of 7 days/Wk (IRF) Estimated Hrs Per Day: 1.5 hours per day Agreement: Yes Rehab Potential: Good Time Start Time: 07:15 Stop Time: 08:15 DATE: Jan 05, 2023 Total Time Billed (hr/min): 60 Billed Treatment Time 1 visit- ADL 4 (60 mins) CATHRYN HOFFMANN Jan 05, 2023 08:14
[2023-01-05] MEDS: ACYCLOVIR 400 MG CAPSULE/TABLET PO SCH ×2 (08:25→20:40)
[2023-01-05] MEDS: ROSUVASTATIN 10 MG TABLET PO SCH (08:25)
[2023-01-05] MEDS: DOCUSATE SODIUM 100 MG CAPSULE PO SCH ×2 (08:25→20:39)
[2023-01-05] MEDS: SENNA W/DOCUSATE TABLET PO SCH ×2 (08:26→20:39)
[2023-01-05] MEDS: PANTOPRAZOLE 20 MG TABLET PO SCH (08:26)
[2023-01-05] MEDS: MORPHINE 30 MG PO SCH ×2 (08:26→20:40)
[2023-01-05] MEDS: CALCIUM PO SCH ×2 (08:28→17:35)
[2023-01-05] MEDS: D3 PO SCH ×2 (08:28→17:35)
[2023-01-05] MEDS: IRON SUCROSE 200 MG/10 ML VIAL IV SCH (08:29)
[2023-01-05] MEDS: POTASSIUM PHOSPHATE PO SCH ×2 (08:30→20:41)
--- NOTE | 2023-01-05 10:48 | PM&R Progress Note ---
Subjective HPI/CC On Admission Date Seen by Provider: Jan 05, 2023 Time Seen by Provider: 11:00 Subjective/Events-last exam 01/05/2023: Patient doing about the same Moved to independent room Cannot really sleep in the hospital bed Patient doing pretty well otherwise 01/04/2023: Patient doing really well Moving around really well Pain is controlled Tolerating Cipro well 01/03/2023: Patient doing well Discussed changing antibiotics due to resistance on urine culture Reviewed meds and labs Check labs in the morning 01/02/2023: Patient doing well Supportive care continues Urine culture reviewed so we will shift from cefdinir to Cipro Changing pain medication to immediate release morphine if she needs just as she does at home 01/01/2023: Patient doing well Family visiting today UTI placed on Omnicef empirically Hemoglobin increased after 1 unit of blood yesterday Feels good Pain controlled Review of Systems General: Fatigue, Malaise Objective Exam Vital Signs Vital Signs Date Time Temp Pulse Resp B/P (MAP) Pulse Ox O2 Delivery O2 Flow Rate FiO2 01/05/23 20:06 36.8 90 16 137/63 (87) 99 NIV CPAP 01/04/23 07:19 0.00 Capillary Refill : General Appearance: No Apparent Distress, WD/WN, Chronically ill HEENT: PERRL/EOMI, Normal ENT Inspection, Pharynx Normal Neck: Full Range of Motion, Normal Inspection, Non Tender, Supple, Carotid Bruit Respiratory: Chest Non Tender, Lungs Clear, Normal Breath Sounds, No Accessory Muscle Use, No Respiratory Distress Cardiovascular: Regular Rate, Rhythm, No Edema, No Gallop, No JVD, No Murmur, Normal Peripheral Pulses Gastrointestinal: Normal Bowel Sounds, No Organomegaly, No Pulsatile Mass, Non Tender, Soft Back: Normal Inspection, No CVA Tenderness, No Vertebral Tenderness Extremity: Normal Capillary Refill, Normal Inspection, Normal Range of Motion (except left leg), Non Tender, No Calf Tenderness, No Pedal Edema Neurologic/Psychiatric: Alert, Oriented x3, Normal Mood/Affect, weatherization installer II-XII Norm as Tested, Abnormal Gait, Motor Weakness (left leg) Skin: Normal Color, Warm/Dry Lymphatic: No Adenopathy Results/Procedures Lab Patient resulted labs reviewed. FIM Transfers Therapy Code Descriptions/Definitions Functional [place] Measure: 0=Not Assessed/NA 4=Minimal Assistance 1=Total Assistance 5=Supervision or Setup 2=Maximal Assistance 6=Modified [place] 3=Moderate Assistance 7=Complete IndependenceSCALE: Activities may be completed with or without assistive devices. 5-Clntnmfprz-rqffzab completes the activity by him/herself with no assistance from a helper. 5-Set-up or Clean-up Assistance-helper sets up or cleans up; patient completes activity. [place] assists only prior to or following the activity. 4-Supervision or Touching Assistance-helper provides verbal cues and/or touching/steadying and/or contact guard assistance as patient completes activity. Assistance may be provided throughout the activity or intermittently. 3-Partial/Moderate Assistance-helper does LESS THAN HALF the effort. [place] lifts, holds or supports trunk or limbs, but provides less than half the effort. 2-Substantial/Maximal Assistance-helper does MORE THAN HALF the effort. [place] lifts or holds trunk or limbs and provides more than half the effort. 5-Zfgaubsmi-ecmqqa does ALL the effort. Patient does none of the effort to complete the activity. Or, the assistance of 2 or more helpers is required for the patient to complete the activity. If activity was not attempted, code reason: 7-Patient Refused. 9-Not Applicable-not attempted and the patient did not perform the activity before the current illness, exacerbation or injury. 10-Not Attempted due to Environmental Limitations-(lack of equipment, weather restraints, etc.). 88-Not Attempted due to Medical Conditions or Safety Concerns. Roll Left to Right (QC): 6 Sit to Lying (QC): 6 Sit to Stand (QC): 6 Chair/Owp-qh-Gpung Xfer(QC): 6 Car Transfer (QC): 6 Gait Training Does the Patient Walk?: Yes Distance: 150 feet x 2 Walk 10 feet (QC): 4 Walk 50 ft with 2 Turns(QC): 4 Walk 150 ft (QC): 4 Walking 10ft/uneven surface-QC: 4 Gait Persons Needed: 1 Gait Assistive Device: FWW Wheelchair Training Does the Pt Use a Wheelchair?: No Distance: NA Wheel 50 ft with 2 turns (QC): 9 Wheel 150 ft (QC): 9 Type of Wheelchair: N/A Stair Training Stair Training: Handrails/: 2 handrails #of Steps: 2 1 Step (curb) (QC): 4 4 Steps (QC): 4 12 Steps (QC): 4 Stairs: Pattern: Step to Balance Picking up an Object (QC): 6 ADL-Treatment Eating (QC): 6 (Pt. IND with eating.) Oral Hygiene (QC): 6 (Pt. completes grooming/oral hygiene while standing at sink.) Bathing Location: L Arm, R Arm, L Upper Leg, R Upper Leg, L Lower Leg (including foot), R Lower Leg (including foot), Chest, Abdomen, Buttocks, Perineal Area Shower/Bathe Self (QC): 6 (Pt. able to bathe all areas while sitting on shower transfer bench 95% of time and stands to clean buttocks and joanne area using HH shower and grabbars.) Upper Body Dressing (QC): 6 (Pt. able to don/doff UB dressing.) Lower Body Dressing (QC): 6 (Pt. able to don/doff LB dressing.) On/Off Footwear (QC): 6 (Pt. able to don/doff socks and slippers using sock aide.) Toileting Hygiene (QC): 6 (Pt. completes clothing manipulation using FWW and grabbars and cleanses all areas by self.) Toilet Transfer (QC): 6 (Pt. completes toilet transfers using FWW and grabbars. ) Assessment/Plan Assessment and Plan Assess & Plan/Chief Complaint Assessment: Left femur fracture Hypertension Postop anemia from acute blood loss requiring 1 unit of blood on 12/31/22 Debility Post op UTI symptomatic-placed on abx placed on Cipro MM on chemo Plan: Pain control Inpatient rehab protocol Bowel regimen Monitor labs 01/01/2023: Monitor hemoglobin Await urine culture 01/02/2023: Change antibiotics from cefdinir to Cipro Add immediate release morphine as she does at home 01/03/2023: Maintain Cipro Supportive care 01/04/2023: Continue pain control Bowel regimen to maintain Cipro 01/05/2023: Supportive care Continue antibiotics (1) Closed left hip fracture Status: Acute (2) Multiple myeloma Status: Chronic (3) Anemia Status: Chronic AYAKA HAMM DO Jan 05, 2023 10:48
--- NOTE | 2023-01-05 11:57 | Physical Therapy Daily Note ---
PT Daily Note-Current Subjective Pt presents sitting in recliner. Pt states her pain in (L) hip is 7/10 (with 4- 5/10 being normal pain level with medical hx). Pt agreeable to PT tx. Pain Section J - Health Conditions 1. Rarely or not at all 2. Occasionally 3. Frequently 4. Almost constantly 8. Unable to answer Pain Effect on Sleep: 4 Pain Interference with Therapy: 4 Pain Interference w/Day-to-Day: 4 Mental Status Patient Orientation: Person, Place, Time, Situation Transfers SCALE: Activities may be completed with or without assistive devices. 2-Ewfjersvxh-jxvfhll completes the activity by him/herself with no assistance from a helper. 5-Set-up or Clean-up Assistance-helper sets up or cleans up; patient completes activity. [place] assists only prior to or following the activity. 4-Supervision or Touching Assistance-helper provides verbal cues and/or touching/steadying and/or contact guard assistance as patient completes activity. Assistance may be provided throughout the activity or intermittently. 3-Partial/Moderate Assistance-helper does LESS THAN HALF the effort. [place] lifts, holds or supports trunk or limbs, but provides less than half the effort. 2-Substantial/Maximal Assistance-helper does MORE THAN HALF the effort. [place] lifts or holds trunk or limbs and provides more than half the effort. 6-Wiswjcchw-tugauh does ALL the effort. Patient does none of the effort to complete the activity. Or, the assistance of 2 or more helpers is required for the patient to complete the activity. If activity was not attempted, code reason: 7-Patient Refused. 9-Not Applicable-not attempted and the patient did not perform the activity before the current illness, exacerbation or injury. 10-Not Attempted due to Environmental Limitations-(lack of equipment, weather restraints, etc.). 88-Not Attempted due to Medical Conditions or Safety Concerns. Sit to Stand (QC): 6 Chair/Ghm-bw-Pcxrh Xfer(QC): 6 Weight Bearing Right Lower Extremity: Right Weight Bearing/[place] Left Lower Extremity: Left Weight Bearing/[place] Standard precautions. Gait Training Does the Patient Walk?: Yes Walk 10 feet (QC): 6 Walk 50 ft with 2 Turns(QC): 4 Walk 150 ft (QC): 4 Gait Assistive Device: Walker 3 Wheeled Pt amb ~ 500' x 2 /c FWW and then switched to 3WW, with SBA for safety. Pt required multiple RB's secondary to fatigue. Wheelchair Training Does the Pt Use a Wheelchair?: No Stair Training Stair Training: Handrails/: 2 handrails 1 Step (curb) (QC): 4 4 Steps (QC): 4 12 Steps (QC): 4 Stairs: Pattern: Step to Pt ascended/descended 12 stairs with (B) handrails and SBA for cueing. Exercises Seated Therapy Exercises: Sit to stand, Long arc quads, Hamstring Curls (with yellow ther band), Hip abd/add (with pillow) Standing: Heel/toe raises, 3 way Ex=Flex, Abd, Ext, Sit to Stand, Weight shifts Standing Reps: 10 Treatments Pt amb with FWW and then 3WW, ~500' x 2, with SBA for safety, for endurance and activity tolerance. Pt improved amb distance before requiring RB. Pt was safe and steady with 3WW. Pt conducted seated and standing ther ex in therapy gym and pt room. Pt demonstrated fair stair mobility with (B) handrails, SBA, for streng thening and stabilization. HULL BUILDER provided pt with HEP and educated pt over home exercises and how to safely conduct them. Post tx with pt in recliner, friend in room, call light within reach and all needs met. Assessment Current Status: Good Progress Pt increased ambulation distance from 50' to 150' before requiring RB. PT Short Term Goals Short Term Goals Time Frame: Jan 15, 2023 Roll Left & Right: 5 Sit to lyin Lying to sitting on side of be: 5 Sit to stand: 5 Chair/rpl-du-npmrq transfer: 5 Toilet transfer: 5 Car transfer: 5 Walk 10 feet: 5 Walk 50 feet with two turns: 5 Walk 150 feet: 5 Walking 10ft on uneven surface: 5 1 step (curb): 5 4 steps: 5 12 steps: 9 Picking up objects: 5 Does pt use a wc or scooter: No Wheel 50ft w/2 turns: 9 Wheel 150 feet: 9 Type: N/A PT Para Machine Operator Goals [place] Goals PT Para Machine Operator Goals Time Frame: Jan 22, 2023 Roll Left & Right (QC): 6 Sit to Lying (QC): 6 Lying-Sitting on Side/Bed(QC): 6 Sit to Stand (QC): 6 Chair/Cts-io-Dpqot Xfer(QC): 6 Toilet Transfer (QC): 6 Car Transfer (QC): 6 Does the Patient Walk: Yes Walk 10 feet (QC): 6 Walk 50ft with 2 Turns (QC): 6 Walk 150 ft (QC): 6 Walking 10ft on Uneven Surface: 6 1 Step (curb) (QC): 6 4 Steps (QC): 6 12 Steps (QC): 9 Picking up an Object (QC): 6 Does the Pt use WC or Scooter?: No Wheel 50 feet with 2 turns (QC: 9 Type: N/A Wheel 150 feet: 9 Type: N/A PT Plan Problem List Problem List: Activity Tolerance, Functional Strength, ROM Treatment/Plan Treatment Plan: Continue Plan of Care Treatment Plan: Bed Mobility, Education, Functional Activity Natasha, Functional Strength, Group Therapy, Gait, Safety, Transfers Treatment Duration: Jan 01, 2023 Frequency: At least 5 of 7 days/Wk (IRF) Estimated Hrs Per Day: 1.5 hours per day Patient and/or Family Agrees t: Yes Safety Risks/Education Patient Education: Issued Written HEP Teaching Recipient: Patient Teaching Methods: Demonstration, Handout, Discussion Response to Teaching: Verbalize Understanding, Return Demonstration Discharge Recommendations Plan Continue with tx per pt POC. Time Time In: 1030 Time Out: 1200 DATE: Jan 05, 2023 Total Billed Treatment Time: 90 Total Billed Treatment 1, GT2 (30m), EX2 (30m), FA2 (30m). ANA LUISA PURVIS HULL BUILDER Jan 05, 2023 11:57
[2023-01-05] MEDS ORDERED: SCOPOLAMINE PATCH REMOVAL TP SCH (11:59)
[2023-01-05] MEDS ORDERED: SCOPOLAMINE 1.5 MG PATCH TD NR (12:00)
[2023-01-05] MEDS ORDERED: PATCH REMOVAL TP NR (12:15)
[2023-01-05] MEDS: morphine IMMEDIATE RELEASE 15 MG TABLET PO PRN (12:46)
--- NOTE | 2023-01-05 13:42 | Physical Therapy Progress Note ---
Therapy Progress Note Patient is able to ambulate 500' x 2, with 3-Wheeled Walker, with Stand-by Assist for safety. Pt's friend brought in 3WW and it has been sized to height and pt is safe & comfortable with it. Pt requires multiple rest breaks secondary to pain and fatigue. Pt's pain level has been consistently high, but "normal pain level" (hx of multiple myeloma) is at 4-5/10 pain daily. Pt can complete mzb-gc-ljtfr transfers, car transfers and bed mobility with stand-by assist for safety, with extra-time allowance for pt to complete. Pt is improving independence with ambulation, stairs and transfers. ANA LUISA PURVIS STRAND GALVANIZER Jan 05, 2023 13:42
--- NOTE | 2023-01-05 13:44 | Occupational Ther Daily Note ---
OT Current Status-Daily Note Subjective Pt. alert sitting in recliner. No c/o pain. Pt. agreed to therapy. Mental Status/Objective Patient Orientation: Person, Place, Time, Situation ADL-Treatment Therapy Code Descriptions/Definitions Functional [place] Measure: 0=Not Assessed/NA 4=Minimal Assistance 1=Total Assistance 5=Supervision or Setup 2=Maximal Assistance 6=Modified [place] 3=Moderate Assistance 7=Complete IndependenceSCALE: Activities may be completed with or without assistive devices. 8-Hdfrosndfx-fzmwywb completes the activity by him/herself with no assistance fr om a helper. 5-Set-up or Clean-up Assistance-helper sets up or cleans up; patient completes activity. [place] assists only prior to or following the activity. 4-Supervision or Touching Assistance-helper provides verbal cues and/or touching/steadying and/or contact guard assistance as patient completes activity. Assistance may be provided throughout the activity or intermittently. 3-Partial/Moderate Assistance-helper does LESS THAN HALF the effort. [place] lifts, holds or supports trunk or limbs, but provides less than half the effort. 2-Substantial/Maximal Assistance-helper does MORE THAN HALF the effort. [place] lifts or holds trunk or limbs and provides more than half the effort. 8-Foyhuyrfu-ripxlj does ALL the effort. Patient does none of the effort to complete the activity. Or, the assistance of 2 or more helpers is required for the patient to complete the activity. If activity was not attempted, code reason: 7-Patient Refused. 9-Not Applicable-not attempted and the patient did not perform the activity before the current illness, exacerbation or injury. 10-Not Attempted due to Environmental Limitations-(lack of equipment, weather restraints, etc.). 88-Not Attempted due to Medical Conditions or Safety Concerns. Other Treatment Pt. ambulated from room to/from [facility] tables using 3-wheel walker. Pt. completed dynamic standing activity to increase balance for daily functional tasks. Pt able to stand 13 minutes prior to sitting to finish task due to L LE being sore. After session, pt in recliner with call light and phone in reach and all needs met. OT Short Term Goals Short Term Goals Time Frame: Jan 08, 2023 Eatin Oral hygiene: 5 Toileting hygiene: 5 Shower/bathe self: 5 Upper body dressin Lower body dressin Putting on/taking off footwear: 5 OT Correction Goals Import Export Agent Goals Time Frame: Jan 15, 2023 Acute change in mental status: 0 Inattention: 0 Disorganized thinkin Altered level of consciousness: 0 Eating (QC): 6 Oral Hygiene (QC): 6 Toileting Hygiene (QC): 6 Shower/Bathe Self (QC): 6 Upper Body Dressing (QC): 6 Lower Body Dressing (QC): 6 On/Off Footwear (QC): 6 1=Demonstrate adherence to instructed precautions during ADL tasks. 2=Patient will verbalize/demonstrate understanding of assistive devices/modifications for ADL. 3=Patient will improve strength/tolerance for activity to enable patient to perform ADL's. OT Education/Plan Problem List/Assessment Assessment: Decreased UE Strength, Impaired Funct Balance Discharge Recommendations Plan/Recommendations: Continue POC Treatment Plan/Plan of Care Patient would benefit from OT for education, treatment and training to promote independence in ADL's, mobility, safety and/or upper extremity function for ADL's. Plan of Care: ADL Retraining, Caregiver Training, Concurrent Therapy, Func tional Mobility, Group Exercise/Act as Ind, UE Funct Exercise/Act Treatment Duration: Feb 06, 2023 Frequency: At least 5 of 7 days/Wk (IRF) Estimated Hrs Per Day: 1.5 hours per day Agreement: Yes Rehab Potential: Good Time Start Time: 13:00 Stop Time: 13:30 DATE: Jan 05, 2023 Total Time Billed (hr/min): 30 Billed Treatment Time 1 visit- FA 2 (30 mins) CATHRYN HOFFMANN Jan 05, 2023 13:43
[2023-01-05] MEDS: CIPROFLOXACIN 500 MG TABLET PO SCH (16:36)
[2023-01-05 20:06] VITALS: BP 137/63
[2023-01-05] MEDS: POTASSIUM CHLORIDE 10 MEQ TABLET PO SCH (20:39)
[2023-01-05] MEDS: GABAPENTIN 600 MG TABLET PO SCH (20:39)
[2023-01-05] MEDS: ONDANSETRON 4 MG ORAL DISSOLVE TABLET PO PRN (20:51)
--- NOTE | 2023-01-06 06:30 | PM&R Progress Note ---
Subjective HPI/CC On Admission Date Seen by Provider: Jan 06, 2023 Time Seen by Provider: 12:30 Subjective/Events-last exam 01/06/2023: Patient much improved Moving around very well Pain is controlled Responded to Cipro 01/05/2023: Patient doing about the same Moved to independent room Cannot really sleep in the hospital bed Patient doing pretty well otherwise 01/04/2023: Patient doing really well Moving around really well Pain is controlled Tolerating Cipro well 01/03/2023: Patient doing well Discussed changing antibiotics due to resistance on urine culture Reviewed meds and labs Check labs in the morning 01/02/2023: Patient doing well Supportive care continues Urine culture reviewed so we will shift from cefdinir to Cipro Changing pain medication to immediate release morphine if she needs just as she does at home 01/01/2023: Patient doing well Family visiting today UTI placed on Omnicef empirically Hemoglobin increased after 1 unit of blood yesterday Feels good Pain controlled Review of Systems General: Fatigue, Malaise Objective Exam Vital Signs Vital Signs Date Time Temp Pulse Resp B/P (MAP) Pulse Ox O2 Delivery O2 Flow Rate FiO2 01/06/23 19:56 36.4 102 20 156/73 (100) 97 Room Air 01/04/23 07:19 0.00 Capillary Refill : General Appearance: No Apparent Distress, WD/WN, Chronically ill HEENT: PERRL/EOMI, Normal ENT Inspection, Pharynx Normal Neck: Full Range of Motion, Normal Inspection, Non Tender, Supple, Carotid Bruit Respiratory: Chest Non Tender, Lungs Clear, Normal Breath Sounds, No Accessory Muscle Use, No Respiratory Distress Cardiovascular: Regular Rate, Rhythm, No Edema, No Gallop, No JVD, No Murmur, Normal Peripheral Pulses Gastrointestinal: Normal Bowel Sounds, No Organomegaly, No Pulsatile Mass, Non Tender, Soft Back: Normal Inspection, No CVA Tenderness, No Vertebral Tenderness Extremity: Normal Capillary Refill, Normal Inspection, Normal Range of Motion (except left leg), Non Tender, No Calf Tenderness, No Pedal Edema Neurologic/Psychiatric: Alert, Oriented x3, Normal Mood/Affect, asphalt blender II-XII Norm as Tested, Abnormal Gait, Motor Weakness (left leg) Skin: Normal Color, Warm/Dry Lymphatic: No Adenopathy Results/Procedures Lab Patient resulted labs reviewed. FIM Transfers Therapy Code Descriptions/Definitions Functional [place] Measure: 0=Not Assessed/NA 4=Minimal Assistance 1=Total Assistance 5=Supervision or Setup 2=Maximal Assistance 6=Modified [place] 3=Moderate Assistance 7=Complete IndependenceSCALE: Activities may be completed with or without assistive devices. 5-Lhbzpxuxbk-mkfdqji completes the activity by him/herself with no assistance from a helper. 5-Set-up or Clean-up Assistance-helper sets up or cleans up; patient completes activity. [place] assists only prior to or following the activity. 4-Supervision or Touching Assistance-helper provides verbal cues and/or touching/steadying and/or contact guard assistance as patient completes activity. Assistance may be provided throughout the activity or intermittently. 3-Partial/Moderate Assistance-helper does LESS THAN HALF the effort. [place] lifts, holds or supports trunk or limbs, but provides less than half the effort. 2-Substantial/Maximal Assistance-helper does MORE THAN HALF the effort. [place] lifts or holds trunk or limbs and provides more than half the effort. 7-Uicwuttrr-qzybrn does ALL the effort. Patient does none of the effort to complete the activity. Or, the assistance of 2 or more helpers is required for the patient to complete the activity. If activity was not attempted, code reason: 7-Patient Refused. 9-Not Applicable-not attempted and the patient did not perform the activity before the current illness, exacerbation or injury. 10-Not Attempted due to Environmental Limitations-(lack of equipment, weather restraints, etc.). 88-Not Attempted due to Medical Conditions or Safety Concerns. Roll Left to Right (QC): 6 Sit to Lying (QC): 6 Sit to Stand (QC): 6 Chair/Krl-wm-Ghejk Xfer(QC): 6 Car Transfer (QC): 6 Gait Training Does the Patient Walk?: Yes Distance: 150 feet x 2 Walk 10 feet (QC): 6 Walk 50 ft with 2 Turns(QC): 4 Walk 150 ft (QC): 4 Walking 10ft/uneven surface-QC: 4 Gait Persons Needed: 1 Gait Assistive Device: Walker 3 Wheeled Wheelchair Training Does the Pt Use a Wheelchair?: No Distance: NA Wheel 50 ft with 2 turns (QC): 9 Wheel 150 ft (QC): 9 Type of Wheelchair: N/A Stair Training Stair Training: Handrails/: 2 handrails #of Steps: 2 1 Step (curb) (QC): 4 4 Steps (QC): 4 12 Steps (QC): 4 Stairs: Pattern: Step to Balance Picking up an Object (QC): 6 ADL-Treatment Eating (QC): 6 (Pt. IND with eating.) Oral Hygiene (QC): 6 (Pt. completes grooming/oral hygiene while standing at sink.) Bathing Location: L Arm, R Arm, L Upper Leg, R Upper Leg, L Lower Leg (including foot), R Lower Leg (including foot), Chest, Abdomen, Buttocks, Perineal Area Shower/Bathe Self (QC): 6 (Pt. able to bathe all areas while sitting on shower transfer bench 95% of time and stands to clean buttocks and joanne area using HH shower and grabbars.) Upper Body Dressing (QC): 6 (Pt. able to don/doff UB dressing.) Lower Body Dressing (QC): 6 (Pt. able to don/doff LB dressing.) On/Off Footwear (QC): 6 (Pt. able to don/doff socks and slippers using sock aide.) Toileting Hygiene (QC): 6 (Pt. completes clothing manipulation using FWW and grabbars and cleanses all areas by self.) Toilet Transfer (QC): 6 (Pt. completes toilet transfers using FWW and grabbars. ) Assessment/Plan Assessment and Plan Assess & Plan/Chief Complaint Assessment: Left femur fracture Hypertension Postop anemia from acute blood loss requiring 1 unit of blood on 12/31/22 Debility Post op UTI symptomatic-placed on abx placed on Cipro MM on chemo Plan: Pain control Inpatient rehab protocol Bowel regimen Monitor labs 01/01/2023: Monitor hemoglobin Await urine culture 01/02/2023: Change antibiotics from cefdinir to Cipro Add immediate release morphine as she does at home 01/03/2023: Maintain Cipro Supportive care 01/04/2023: Continue pain control Bowel regimen to maintain Cipro 01/05/2023: Supportive care Continue antibiotics 01/06/2023: Supportive care Continue Cipro (1) Closed left hip fracture Status: Acute (2) Multiple myeloma Status: Chronic (3) Anemia Status: Chronic AYAKA HAMM DO Jan 06, 2023 06:30
[2023-01-06] MEDS: METOCLOPRAMIDE 10 MG TABLET PO SCH ×4 (06:46→20:02)
[2023-01-06] MEDS: THYROID PO SCH (06:46)
[2023-01-06] MEDS: POTASSIUM CHLORIDE 20 MEQ TABLET PO SCH (06:46)
[2023-01-06 07:52] VITALS: BP 116/58
[2023-01-06] MEDS: PANTOPRAZOLE 20 MG TABLET PO SCH (08:38)
[2023-01-06] MEDS: ACYCLOVIR 400 MG CAPSULE/TABLET PO SCH ×2 (08:38→20:02)
[2023-01-06] MEDS: MORPHINE 30 MG PO SCH ×2 (08:38→20:02)
[2023-01-06] MEDS: ROSUVASTATIN 10 MG TABLET PO SCH (08:38)
[2023-01-06] MEDS: DOCUSATE SODIUM 100 MG CAPSULE PO SCH ×2 (08:39→20:02)
[2023-01-06] MEDS: SENNA W/DOCUSATE TABLET PO SCH ×2 (08:39→20:02)
[2023-01-06] MEDS: POTASSIUM PHOSPHATE PO SCH ×2 (08:40→20:04)
[2023-01-06] MEDS: D3 PO SCH ×2 (08:41→17:07)
[2023-01-06] MEDS: CALCIUM PO SCH ×2 (08:41→17:07)
--- NOTE | 2023-01-06 12:29 | Physical Therapy Daily Note ---
PT Daily Note-Current Subjective Pt sitting in recliner upon arrival. Pt agrees to PT for QC scoring for anticipated d/c in a couple days (Wednesday, 01/08). Pain Location: No Pain Reported Section J - Health Conditions 1. Rarely or not at all 2. Occasionally 3. Frequently 4. Almost constantly 8. Unable to answer Pain Effect on Sleep: 2 Pain Interference with Therapy: 2 Pain Interference w/Day-to-Day: 2 Mental Status Patient Orientation: Person, Place, Time, Situation Attachments: IV Transfers SCALE: Activities may be completed with or without assistive devices. 9-Vhgubmglll-hojgjkn completes the activity by him/herself with no assistance from a helper. 5-Set-up or Clean-up Assistance-helper sets up or cleans up; patient completes activity. [place] assists only prior to or following the activity. 4-Supervision or Touching Assistance-helper provides verbal cues and/or touching/steadying and/or contact guard assistance as patient completes activity. Assistance may be provided throughout the activity or intermittently. 3-Partial/Moderate Assistance-helper does LESS THAN HALF the effort. [place] lifts, holds or supports trunk or limbs, but provides less than half the effort. 2-Substantial/Maximal Assistance-helper does MORE THAN HALF the effort. [place] lifts or holds trunk or limbs and provides more than half the effort. 7-Elolfrvrk-lbyzva does ALL the effort. Patient does none of the effort to compl ete the activity. Or, the assistance of 2 or more helpers is required for the patient to complete the activity. If activity was not attempted, code reason: 7-Patient Refused. 9-Not Applicable-not attempted and the patient did not perform the activity before the current illness, exacerbation or injury. 10-Not Attempted due to Environmental Limitations-(lack of equipment, weather restraints, etc.). 88-Not Attempted due to Medical Conditions or Safety Concerns. Roll Left & Right (QC): 6 Sit to Lying (QC): 6 Lying to Sitting/Side of Bed(Q: 6 Sit to Stand (QC): 6 Chair/Ilu-xu-Lmwtx Xfer(QC): 6 Toilet Transfer (QC): 6 Car Transfer (QC): 6 Weight Bearing Right Lower Extremity: Right Weight Bearing/Tolerated Left Lower Extremity: Left Weight Bearing/Tolerated Standard precautions. Gait Training Does the Patient Walk?: Yes Distance: 180' Walk 10 feet (QC): 6 Walk 50 ft with 2 Turns(QC): 6 Walk 150 ft (QC): 6 Walking 10ft/uneven surface-QC: 6 Gait Assistive Device: Walker 3 Wheeled Wheelchair Training Does the Pt Use a Wheelchair?: No Stair Training Stair Training: Handrails/: 2 handrails #of Steps: 12 1 Step (curb) (QC): 6 4 Steps (QC): 6 12 Steps (QC): 6 Stairs: Pattern: Step to Balance Picking up an Object (QC): 6 Special Test Comments Uses recreation therapy teacher Exercises Seated Therapy Exercises: Ankle pumps, Long arc quads, Hamstring Curls (using yellow Tband), Hip abd/add, Glut set Seated Reps: 15 Standing: Hip Abduction, Hamstring curls, Side steps Standing Reps: 15 NuStep Minutes: 15 NuStep Workload: 4 Treatments Pt completes QC Scoring items listed above as well as uses NuStep and completes Sitting and Standing Ex before returning to room to use BR and rest in recliner at end of tx. All needs met, call light in hand. Assessment Current Status: Good Progress Pt linda. tx well. PT Short Term Goals Short Term Goals Time Frame: Jan 15, 2023 Roll Left & Right: 5 Sit to lyin Lying to sitting on side of be: 5 Sit to stand: 5 Chair/dhq-iz-baozh transfer: 5 Toilet transfer: 5 Car transfer: 5 Walk 10 feet: 5 Walk 50 feet with two turns: 5 Walk 150 feet: 5 Walking 10ft on uneven surface: 5 1 step (curb): 5 4 steps: 5 12 steps: 9 Picking up objects: 5 Does pt use a wc or scooter: No Wheel 50ft w/2 turns: 9 Wheel 150 feet: 9 Type: N/A PT Skilled Nursing Goals Skilled Nursing Goals PT Supervisor [employer] Goals Time Frame: Jan 22, 2023 Roll Left & Right (QC): 6 Sit to Lying (QC): 6 Lying-Sitting on Side/Bed(QC): 6 Sit to Stand (QC): 6 Chair/Rds-je-Lwsvq Xfer(QC): 6 Toilet Transfer (QC): 6 Car Transfer (QC): 6 Does the Patient Walk: Yes Walk 10 feet (QC): 6 Walk 50ft with 2 Turns (QC): 6 Walk 150 ft (QC): 6 Walking 10ft on Uneven Surface: 6 1 Step (curb) (QC): 6 4 Steps (QC): 6 12 Steps (QC): 9 Picking up an Object (QC): 6 Does the Pt use WC or Scooter?: No Wheel 50 feet with 2 turns (QC: 9 Type: N/A Wheel 150 feet: 9 Type: N/A PT Plan Treatment/Plan Treatment Plan: Continue Plan of Care Treatment Plan: Bed Mobility, Education, Functional Activity Natasha, Functional Strength, Group Therapy, Gait, Safety, Transfers Treatment Duration: Jan 01, 2023 Frequency: At least 5 of 7 days/Wk (IRF) Estimated Hrs Per Day: 1.5 hours per day Patient and/or Family Agrees t: Yes Time Time In: 1030 Time Out: 1200 DATE: Jan 06, 2023 Total Billed Treatment Time: 90 Total Billed Treatment 1, GT x2 (30m), FA x2 (30m) & EX x2 (30m) LEE PHAM CHEMISTRY PHYSICS TEACHER Jan 06, 2023 12:29
--- NOTE | 2023-01-06 14:42 | Occupational Ther Daily Note ---
OT Current Status-Daily Note Subjective Pt received sitting in recliner. Pt very pleasant and willing to participate in therapy. Pain Numeric Pain Scale: 0-No Pain Location: No Pain Reported Mental Status/Objective Patient Orientation: Person, Place, Time, Situation ADL-Treatment Therapy Code Descriptions/Definitions Functional [place] Measure: 0=Not Assessed/NA 4=Minimal Assistance 1=Total Assistance 5=Supervision or Setup 2=Maximal Assistance 6=Modified [place] 3=Moderate Assistance 7=Complete IndependenceSCALE: Activities may be completed with or without assistive devices. 0-Vmanwgrmsy-zbfsepq completes the activity by him/herself with no assistance from a helper. 5-Set-up or Clean-up Assistance-helper sets up or cleans up; patient completes activity. [place] assists only prior to or following the activity. 4-Supervision or Touching Assistance-helper provides verbal cues and/or touching/steadying and/or contact guard assistance as patient completes activity. Assistance may be provided throughout the activity or intermittently. 3-Partial/Moderate Assistance-helper does LESS THAN HALF the effort. [place] lifts, holds or supports trunk or limbs, but provides less than half the effort. 2-Substantial/Maximal Assistance-helper does MORE THAN HALF the effort. [place] lifts or holds trunk or limbs and provides more than half the effort. 4-Wcgfdnrts-puumcr does ALL the effort. Patient does none of the effort to complete the activity. Or, the assistance of 2 or more helpers is required for the patient to complete the activity. If activity was not attempted, code reason: 7-Patient Refused. 9-Not Applicable-not attempted and the patient did not perform the activity before the current illness, exacerbation or injury. 10-Not Attempted due to Environmental Limitations-(lack of equipment, weather restraints, etc.). 88-Not Attempted due to Medical Conditions or Safety Concerns. Eating (QC): 6 Oral Hygiene (QC): 6 Bathing Location: L Arm, R Arm, L Upper Leg, R Upper Leg, L Lower Leg (including foot), R Lower Leg (including foot), Chest, Abdomen, Buttocks, Perineal Area Shower/Bathe Self (QC): 6 Upper Body Dressing (QC): 6 Lower Body Dressing (QC): 6 On/Off Footwear: 6 Toileting Hygiene (QC): 6 Toilet Transfer (QC): 6 Other Treatment Pt completed functional mobility with 3WW with independence for ~30ft x6, requiring no cues for safety. Pt completed functional dynamic standing activity reaching outside base of support for ~8mins x3 with independence and no cues for safety. Education OT Patient Education: Correct positioning, Energy conservation, Home exercise program, Modified ADL techniques, Progress toward Goal/Update tx plan, Purpose of tx/functional activities, Reviewed precautions, Rehab process, Safety issues, Transfer techniques, Use of adapted equipment Teaching Recipient: Patient Teaching Methods: Demonstration, Discussion Response to Teaching: Verbalize Understanding, Return Demonstration BIMS CAM BIMS Expression of Ideas and Wants: Without Difficulty Understanding Verbal Content: Understands Brief Interview/Mental Status: Yes IRF DIANE BIMS: IRF DIANE BIMS Response (Comments) Value Repitition of Three Words Three 3 Recalls Socks Yes, No Cue Required 2 Recalls Blue Yes, No Cue Required 2 Recalls Bed Yes, No Cue Required 2 Year Correct 3 Month Accurate Within 5 Days 2 Day Correct 1 Total 15 Patient Normally Able to Recal: Current Session, Location of own room, Staff Names and faces, That he/she in a [facility] Should Staff Asses. Mental St.: No Memory/Recall Ability: Current Season, Location of Own Room, Staff Names and Faces, That He[facility]She in [facility] Mental Status Change/Baseline: 0 Inattention: 0 Disorganized thinkin Altered level of consciousness: 0 OT Short Term Goals Short Term Goals Time Frame: Jan 08, 2023 Eatin Oral hygiene: 5 Toileting hygiene: 5 Shower/bathe self: 5 Upper body dressin Lower body dressin Putting on/taking off footwear: 5 OT Taker Off Drying Kiln Goals Taker Off Drying Kiln Goals Time Frame: Jan 15, 2023 Acute change in mental status: 0 Inattention: 0 Disorganized thinkin Altered level of consciousness: 0 Eating (QC): 6 Oral Hygiene (QC): 6 Toileting Hygiene (QC): 6 Shower/Bathe Self (QC): 6 Upper Body Dressing (QC): 6 Lower Body Dressing (QC): 6 On/Off Footwear (QC): 6 1=Demonstrate adherence to instructed precautions during ADL tasks. 2=Patient will verbalize/demonstrate understanding of assistive devices/modifications for ADL. 3=Patient will improve strength/tolerance for activity to enable patient to perform ADL's. OT Education/Plan Problem List/Assessment Assessment: Decreased Activ Tolerance, Decreased Safety Aware, Decreased UE Strength, Impaired Coordination, Impaired Funct Balance, Impaired I ADL's, Impaired Self-Care Skills Discharge Recommendations Plan/Recommendations: Continue POC Treatment Plan/Plan of Care Treatment,Training & Education: Yes Patient would benefit from OT for education, treatment and training to promote independence in ADL's, mobility, safety and/or upper extremity function for ADL's. Plan of Care: ADL Retraining, Caregiver Training, Concurrent Therapy, Functional Mobility, Group Exercise/Act as Ind, UE Funct Exercise/Act Treatment Duration: Feb 06, 2023 Frequency: At least 5 of 7 days/Wk (IRF) Estimated Hrs Per Day: 1.5 hours per day Agreement: Yes Rehab Potential: Good Time Start Time: 13:00 Stop Time: 14:30 DATE: Jan 06, 2023 Total Time Billed (hr/min): 90 Billed Treatment Time 1, ADL 4, FA 2 Selina Luis OTR/L Jan 06, 2023 14:42
[2023-01-06] MEDS: morphine IMMEDIATE RELEASE 15 MG TABLET PO PRN (15:11)
[2023-01-06] MEDS: CIPROFLOXACIN 500 MG TABLET PO SCH (17:06)
[2023-01-06 19:56] VITALS: BP 156/73
[2023-01-06] MEDS: GABAPENTIN 600 MG TABLET PO SCH (20:02)
[2023-01-06] MEDS: POTASSIUM CHLORIDE 10 MEQ TABLET PO SCH (20:05)
[2023-01-07] MEDS: THYROID PO SCH (05:12)
[2023-01-07] MEDS: POTASSIUM CHLORIDE 20 MEQ TABLET PO SCH (06:53)
[2023-01-07] MEDS: METOCLOPRAMIDE 10 MG TABLET PO SCH ×4 (06:53→20:06)
--- NOTE | 2023-01-07 07:02 | PM&R Progress Note ---
Subjective HPI/CC On Admission Date Seen by Provider: Jan 07, 2023 Time Seen by Provider: 12:30 Subjective/Events-last exam 01/07/2023: Patient doing well Set for discharge tomorrow No falls No pain 01/06/2023: Patient much improved Moving around very well Pain is controlled Responded to Cipro 01/05/2023: Patient doing about the same Moved to independent room Cannot really sleep in the hospital bed Patient doing pretty well otherwise 01/04/2023: Patient doing really well Moving around really well Pain is controlled Tolerating Cipro well 01/03/2023: Patient doing well Discussed changing antibiotics due to resistance on urine culture Reviewed meds and labs Check labs in the morning 01/02/2023: Patient doing well Supportive care continues Urine culture reviewed so we will shift from cefdinir to Cipro Changing pain medication to immediate release morphine if she needs just as she does at home 01/01/2023: Patient doing well Family visiting today UTI placed on Omnicef empirically Hemoglobin increased after 1 unit of blood yesterday Feels good Pain controlled Review of Systems General: Fatigue, Malaise Objective Exam Vital Signs Vital Signs Date Time Temp Pulse Resp B/P (MAP) Pulse Ox O2 Delivery O2 Flow Rate FiO2 01/07/23 19:25 36.1 77 16 106/59 (75) 96 Room Air 01/07/23 08:20 0.00 Capillary Refill : General Appearance: No Apparent Distress, WD/WN, Chronically ill HEENT: PERRL/EOMI, Normal ENT Inspection, Pharynx Normal Neck: Full Range of Motion, Normal Inspection, Non Tender, Supple, Carotid Br uit Respiratory: Chest Non Tender, Lungs Clear, Normal Breath Sounds, No Accessory Muscle Use, No Respiratory Distress Cardiovascular: Regular Rate, Rhythm, No Edema, No Gallop, No JVD, No Murmur, Normal Peripheral Pulses Gastrointestinal: Normal Bowel Sounds, No Organomegaly, No Pulsatile Mass, Non Tender, Soft Back: Normal Inspection, No CVA Tenderness, No Vertebral Tenderness Extremity: Normal Capillary Refill, Normal Inspection, Normal Range of Motion (except left leg), Non Tender, No Calf Tenderness, No Pedal Edema Neurologic/Psychiatric: Alert, Oriented x3, Normal Mood/Affect, brass cleaner II-XII Norm as Tested, Abnormal Gait, Motor Weakness (left leg) Skin: Normal Color, Warm/Dry Lymphatic: No Adenopathy Results/Procedures Lab Patient resulted labs reviewed. FIM Transfers Therapy Code Descriptions/Definitions Functional [place] Measure: 0=Not Assessed/NA 4=Minimal Assistance 1=Total Assistance 5=Supervision or Setup 2=Maximal Assistance 6=Modified [place] 3=Moderate Assistance 7=Complete IndependenceSCALE: Activities may be completed with or without assistive devices. 2-Ajdjwowsxj-qouiuuc completes the activity by him/herself with no assistance from a helper. 5-Set-up or Clean-up Assistance-helper sets up or cleans up; patient completes activity. [place] assists only prior to or following the activity. 4-Supervision or Touching Assistance-helper provides verbal cues and/or touching/steadying and/or contact guard assistance as patient completes activity. Assistance may be provided throughout the activity or intermittently. 3-Partial/Moderate Assistance-helper does LESS THAN HALF the effort. [place] lifts, holds or supports trunk or limbs, but provides less than half the effort. 2-Substantial/Maximal Assistance-helper does MORE THAN HALF the effort. [place] lifts or holds trunk or limbs and provides more than half the effort. 6-Pdrzwkwyb-qvyaxe does ALL the effort. Patient does none of the effort to complete the activity. Or, the assistance of 2 or more helpers is required for the patient to complete the activity. If activity was not attempted, code reason: 7-Patient Refused. 9-Not Applicable-not attempted and the patient did not perform the activity before the current illness, exacerbation or injury. 10-Not Attempted due to Environmental Limitations-(lack of equipment, weather restraints, etc.). 88-Not Attempted due to Medical Conditions or Safety Concerns. Roll Left to Right (QC): 6 Sit to Lying (QC): 6 Sit to Stand (QC): 6 Chair/Bdj-gn-Siiwb Xfer(QC): 6 Car Transfer (QC): 6 Gait Training Does the Patient Walk?: Yes Distance: 180' Walk 10 feet (QC): 6 Walk 50 ft with 2 Turns(QC): 6 Walk 150 ft (QC): 6 Walking 10ft/uneven surface-QC: 6 Gait Persons Needed: 1 Gait Assistive Device: Walker 3 Wheeled Wheelchair Training Does the Pt Use a Wheelchair?: No Distance: NA Wheel 50 ft with 2 turns (QC): 9 Wheel 150 ft (QC): 9 Type of Wheelchair: N/A Stair Training Stair Training: Handrails/: 2 handrails #of Steps: 12 1 Step (curb) (QC): 6 4 Steps (QC): 6 12 Steps (QC): 6 Stairs: Pattern: Step to Balance Picking up an Object (QC): 6 ADL-Treatment Eating (QC): 6 Oral Hygiene (QC): 6 Bathing Location: L Arm, R Arm, L Upper Leg, R Upper Leg, L Lower Leg (including foot), R Lower Leg (including foot), Chest, Abdomen, Buttocks, Perineal Area Shower/Bathe Self (QC): 6 Upper Body Dressing (QC): 6 Lower Body Dressing (QC): 6 On/Off Footwear (QC): 6 Toileting Hygiene (QC): 6 Toilet Transfer (QC): 6 Assessment/Plan Assessment and Plan Assess & Plan/Chief Complaint Assessment: Left femur fracture Hypertension Postop anemia from acute blood loss requiring 1 unit of blood on 12/31/22 Debility Post op UTI symptomatic-placed on abx placed on Cipro MM on chemo Plan: Pain control Inpatient rehab protocol Bowel regimen Monitor labs 01/01/2023: Monitor hemoglobin Await urine culture 01/02/2023: Change antibiotics from cefdinir to Cipro Add immediate release morphine as she does at home 01/03/2023: Maintain Cipro Supportive care 01/04/2023: Continue pain control Bowel regimen to maintain Cipro 01/05/2023: Supportive care Continue antibiotics 01/06/2023: Supportive care Continue Cipro 01/07/2023: Discharged home tomorrow (1) Closed left hip fracture Status: Acute (2) Multiple myeloma Status: Chronic (3) Anemia Status: Chronic AYAKA HAMM DO Jan 07, 2023 07:02
[2023-01-07 07:32] VITALS: BP 133/62
[2023-01-07] MEDS: DOCUSATE SODIUM 100 MG CAPSULE PO SCH ×2 (08:17→20:06)
[2023-01-07] MEDS: PANTOPRAZOLE 20 MG TABLET PO SCH (08:17)
[2023-01-07] MEDS: SENNA W/DOCUSATE TABLET PO SCH ×2 (08:17→20:06)
[2023-01-07] MEDS: ROSUVASTATIN 10 MG TABLET PO SCH (08:17)
[2023-01-07] MEDS: ACYCLOVIR 400 MG CAPSULE/TABLET PO SCH ×2 (08:17→20:06)
[2023-01-07] MEDS: MORPHINE 30 MG PO SCH ×2 (08:18→20:06)
[2023-01-07] MEDS: D3 PO SCH ×2 (08:18→19:29)
[2023-01-07] MEDS: CALCIUM PO SCH ×2 (08:18→19:29)
[2023-01-07] MEDS: POTASSIUM PHOSPHATE PO SCH ×2 (08:22→20:06)
--- NOTE | 2023-01-07 08:51 | Occupational Ther Daily Note ---
OT Current Status-Daily Note Subjective Pt. alert sitting in recliner. No c/o pain at this time. Pt. agreed to therapy. Mental Status/Objective Patient Orientation: Person, Place, Time, Situation Attachments: Central Line ADL-Treatment Pt. agreed to shower. Pt. ambulated using 3WW to gather UB/LB dressing by self. After session, pt in recliner with call light and phone in reach and all needs met. Therapy Code Descriptions/Definitions Functional [place] Measure: 0=Not Assessed/NA 4=Minimal Assistance 1=Total Assistance 5=Supervision or Setup 2=Maximal Assistance 6=Modified [place] 3=Moderate Assistance 7=Complete IndependenceSCALE: Activities may be completed with or without assistive devices. 7-Rwwkjvtstm-xmhtrgf completes the activity by him/herself with no assistance from a helper. 5-Set-up or Clean-up Assistance-helper sets up or cleans up; patient completes activity. [place] assists only prior to or following the activity. 4-Supervision or Touching Assistance-helper provides verbal cues and/or touching/steadying and/or contact guard assistance as patient completes activity. Assistance may be provided throughout the activity or intermittently. 3-Partial/Moderate Assistance-helper does LESS THAN HALF the effort. [place] lifts, holds or supports trunk or limbs, but provides less than half the effort. 2-Substantial/Maximal Assistance-helper does MORE THAN HALF the effort. [place] lifts or holds trunk or limbs and provides more than half the effort. 0-Aupekghog-anxpuv does ALL the effort. Patient does none of the effort to complete the activity. Or, the assistance of 2 or more helpers is required for the patient to complete the activity. If activity was not attempted, code reason: 7-Patient Refused. 9-Not Applicable-not attempted and the patient did not perform the activity before the current illness, exacerbation or injury. 10-Not Attempted due to Environmental Limitations-(lack of equipment, weather restraints, etc.). 88-Not Attempted due to Medical Conditions or Safety Concerns. Eating (QC): 6 (Pt. has demonstrated eating IND.) Oral Hygiene (QC): 6 (Pt. completes grooming/oral hygiene while standing at sink.) Bathing Location: L Arm, R Arm, L Upper Leg, R Upper Leg, L Lower Leg (including foot), R Lower Leg (including foot), Chest, Abdomen, Buttocks, Perineal Area Shower/Bathe Self (QC): 6 (Pt. able to bathe all areas while sitting 95% of time on shower transfer bench and stands to clean joanne area and buttocks using HH shower and grabbars.) Upper Body Dressing (QC): 6 (Pt. IND with UB dressing.) Lower Body Dressing (QC): 6 (Pt. IND with LB dressing using 3WW to stabilize. ) On/Off Footwear: 6 (Pt. IND with donning/doffing shoes. ) Toileting Hygiene (QC): 6 (Pt. has demonstrated clothing manipulation using 3WW/grabbars and cleanses all areas by self.) Toilet Transfer (QC): 6 (Pt. has demonstrated toilet transfers IND using 3WW and grabbars.) Other Treatment Pt. completed dynamic sitting activity to increase dexterity for daily functional tasks with opening containers, buttoning clothing. OT Short Term Goals Short Term Goals Time Frame: Jan 08, 2023 Eatin Oral hygiene: 5 Toileting hygiene: 5 Shower/bathe self: 5 Upper body dressin Lower body dressin Putting on/taking off footwear: 5 OT Alf Goals Loan Coordinator Goals Time Frame: Jan 15, 2023 Acute change in mental status: 0 Inattention: 0 Disorganized thinkin Altered level of consciousness: 0 Eating (QC): 6 Oral Hygiene (QC): 6 Toileting Hygiene (QC): 6 Shower/Bathe Self (QC): 6 Upper Body Dressing (QC): 6 Lower Body Dressing (QC): 6 On/Off Footwear (QC): 6 1=Demonstrate adherence to instructed precautions during ADL tasks. 2=Patient will verbalize/demonstrate understanding of assistive devices/modifications for ADL. 3=Patient will improve strength/tolerance for activity to enable patient to perform ADL's. OT Education/Plan Problem List/Assessment Assessment: Decreased UE Strength, Impaired Funct Balance, Impaired Self-Care Skills Discharge Recommendations Plan/Recommendations: Continue POC Treatment Plan/Plan of Care Patient would benefit from OT for education, treatment and training to promote independence in ADL's, mobility, safety and/or upper extremity function for ADL's. Plan of Care: ADL Retraining, Caregiver Training, Concurrent Therapy, Functional Mobility, Group Exercise/Act as Ind, UE Funct Exercise/Act Treatment Duration: Feb 06, 2023 Frequency: At least 5 of 7 days/Wk (IRF) Estimated Hrs Per Day: 1.5 hours per day Agreement: Yes Rehab Potential: Good Time Start Time: 07:30 Stop Time: 09:00 DATE: Jan 07, 2023 Total Time Billed (hr/min): 90 Billed Treatment Time 1 visit- ADL 4 (60 mins) FA 2 (30 mins) CATHRYN HOFFMANN Jan 07, 2023 08:51
[2023-01-07] MEDS: IRON SUCROSE 200 MG/10 ML VIAL IV SCH (10:00)
[2023-01-07] MEDS: oxyCODONE IMMEDIATE RELEASE 5 MG TABLET PO PRN (10:00)
[2023-01-07] MEDS: ONDANSETRON 4 MG ORAL DISSOLVE TABLET PO PRN (10:21)
[2023-01-07] MEDS: morphine IMMEDIATE RELEASE 15 MG TABLET PO PRN (13:19)
[2023-01-07 13:22] VITALS: BP 162/72
--- NOTE | 2023-01-07 14:14 | Physical Therapy Daily Note ---
PT Daily Note-Current Subjective Pt sitting in recliner upon arrival. Pt agrees to PT. Pt reports excited for d/c tomorrow. Pain Numeric Pain Scale: 5-Moderate Pain Location Body Site: Head Pain Description: Ache Section J - Health Conditions 1. Rarely or not at all 2. Occasionally 3. Frequently 4. Almost constantly 8. Unable to answer Pain Effect on Sleep: 2 Pain Interference with Therapy: 2 Pain Interference w/Day-to-Day: 2 Mental Status Patient Orientation: Person, Place Transfers SCALE: Activities may be completed with or without assistive devices. 6-Amniajqihb-frqvwtq completes the activity by him/herself with no assistance from a helper. 5-Set-up or Clean-up Assistance-helper sets up or cleans up; patient completes activity. [place] assists only prior to or following the activity. 4-Supervision or Touching Assistance-helper provides verbal cues and/or touching/steadying and/or contact guard assistance as patient completes activity. Assistance may be provided throughout the activity or intermittently. 3-Partial/Moderate Assistance-helper does LESS THAN HALF the effort. [place] lifts, holds or supports trunk or limbs, but provides less than half the effort. 2-Substantial/Maximal Assistance-helper does MORE THAN HALF the effort. [place] lifts or holds trunk or limbs and provides more than half the effort. 1-Qxqcunybs-dmsnzu does ALL the effort. Patient does none of the effort to complete the activity. Or, the assistance of 2 or more helpers is required for the patient to complete the activity. If activity was not attempted, code reason: 7-Patient Refused. 9-Not Applicable-not attempted and the patient did not perform the activity before the current illness, exacerbation or injury. 10-Not Attempted due to Environmental Limitations-(lack of equipment, weather restraints, etc.). 88-Not Attempted due to Medical Conditions or Safety Concerns. Sit to Stand (QC): 6 Toilet Transfer (QC): 6 Weight Bearing Right Lower Extremity: Right Weight Bearing/Tolerated Left Lower Extremity: Left Weight Bearing/Tolerated Standard precautions. Gait Training Does the Patient Walk?: Yes Distance: 250', 145' Walk 10 feet (QC): 6 Walk 50 ft with 2 Turns(QC): 6 Walk 150 ft (QC): 6 Gait Assistive Device: FWW Wheelchair Training Does the Pt Use a Wheelchair?: No Stair Training Stair Training: Handrails/: 2 handrails 1 Step (curb) (QC): 6 4 Steps (QC): 6 12 Steps (QC): 6 Stairs: Pattern: Step to Exercises Standing: Hip Abduction, Side steps Treatments Pt TF to standing and amb to BR. After toileting, pt amb in hallway. After RB, pt amb in hallway again to Therapy Gym. Pt uses ROM Arch in Standing w/wrist weights to work on dynamic standing balance. Pt also completes stairs and uses NuStep before amb back to room to rest in recliner at end of tx. All needs met, call light in hand. Assessment Current Status: Excellent Progress Pt has made good progress with improvements with independence of transfers and mobility as well as strength. PT Short Term Goals Short Term Goals Time Frame: Jan 15, 2023 Roll Left & Right: 5 Sit to lyin Lying to sitting on side of be: 5 Sit to stand: 5 Chair/dbl-pn-jlptj transfer: 5 Toilet transfer: 5 Car transfer: 5 Walk 10 feet: 5 Walk 50 feet with two turns: 5 Walk 150 feet: 5 Walking 10ft on uneven surface: 5 1 step (curb): 5 4 steps: 5 12 steps: 9 Picking up objects: 5 Does pt use a wc or scooter: No Wheel 50ft w/2 turns: 9 Wheel 150 feet: 9 Type: N/A PT Correction Goals Correction Goals PT Cell Tester Goals Time Frame: Jan 22, 2023 Roll Left & Right (QC): 6 Sit to Lying (QC): 6 Lying-Sitting on Side/Bed(QC): 6 Sit to Stand (QC): 6 Chair/Ekv-lu-Pywdv Xfer(QC): 6 Toilet Transfer (QC): 6 Car Transfer (QC): 6 Does the Patient Walk: Yes Walk 10 feet (QC): 6 Walk 50ft with 2 Turns (QC): 6 Walk 150 ft (QC): 6 Walking 10ft on Uneven Surface: 6 1 Step (curb) (QC): 6 4 Steps (QC): 6 12 Steps (QC): 9 Picking up an Object (QC): 6 Does the Pt use WC or Scooter?: No Wheel 50 feet with 2 turns (QC: 9 Type: N/A Wheel 150 feet: 9 Type: N/A PT Plan Treatment/Plan Treatment Plan: Continue Plan of Care Treatment Plan: Bed Mobility, Education, Functional Activity Natasha, Functional Strength, Group Therapy, Gait, Safety, Transfers Treatment Duration: Jan 01, 2023 Frequency: At least 5 of 7 days/Wk (IRF) Estimated Hrs Per Day: 1.5 hours per day Patient and/or Family Agrees t: Yes Time Time In: 1030 Time Out: 1200 DATE: Jan 07, 2023 Total Billed Treatment Time: 90 Total Billed Treatment 1,GT x2 (30m), EX x2 (30m) & FA x2 (30m) 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
[2023-01-07] MEDS ORDERED: HEParin (CENTRAL IV FLUSH) 500 UNIT/5 ML SYR IV NR (16:15)
[2023-01-07] MEDS: CIPROFLOXACIN 500 MG TABLET PO SCH (16:33)
[2023-01-07 19:25] VITALS: BP 106/59
[2023-01-07] MEDS: POTASSIUM CHLORIDE 10 MEQ TABLET PO SCH (20:06)
[2023-01-07] MEDS: GABAPENTIN 600 MG TABLET PO SCH (20:06)
[2023-01-08] MEDS: THYROID PO SCH (04:26)
[2023-01-08] MEDS ORDERED: MTC10T PO (04:35)
[2023-01-08] MEDS ORDERED: CIPR500T5 PO (04:35)
--- NOTE | 2023-01-08 04:36 | Discharge Summary ---
Diagnosis/Chief Complaint Date of Admission Dec 31, 2022 at 13:00 Date of Discharge Discharge Date: Jan 08, 2023 Discharge Diagnosis Assessment: Left femur fracture Hypertension Postop anemia from acute blood loss requiring 1 unit of blood on 12/31/22 Debility Post op UTI symptomatic-placed on abx placed on Cipro MM on chemo Plan: Pain control Inpatient rehab protocol Bowel regimen Monitor labs 01/01/2023: Monitor hemoglobin Await urine culture 01/02/2023: Change antibiotics from cefdinir to Cipro Add immediate release morphine as she does at home 01/03/2023: Maintain Cipro Supportive care 01/04/2023: Continue pain control Bowel regimen to maintain Cipro 01/05/2023: Supportive care Continue antibiotics 01/06/2023: Supportive care Continue Cipro 01/07/2023: Discharged home tomorrow (1) Closed left hip fracture Status: Acute (2) Multiple myeloma Status: Chronic (3) Anemia Status: Chronic Discharge Summary Discharge Physical Examination Allergies: Coded Allergies: tomato (Verified Allergy, Intermediate, Rash, 01/04/23) Per patient report Sulfa (Sulfonamide Antibiotics) (Verified Allergy, Unknown, hives, 05/24/18) latex (Verified Allergy, Unknown, anaphylaxis, 05/24/18) midazolam (Verified Allergy, Unknown, pt has had xanax and ativan in past, 12/10/22) vancomycin (Verified Allergy, Unknown, hives, 05/24/18) Uncoded Allergies: "SEEDS" (Adverse Reaction, Unknown, 06/18/22) CAN NOT HAVE SEEDS D/T DIVERTICULITIS PER PT Vitals & I&Os Vital Signs Date Time Temp Pulse Resp B/P (MAP) Pulse Ox O2 Delivery O2 Flow Rate FiO2 01/08/23 08:52 Room Air 01/08/23 08:11 36.4 85 16 138/67 (90) 98 01/07/23 08:20 0.00 General Appearance: Alert, Oriented X3, Cooperative Respiratory: Clear to Auscultation Cardiovascular: Regular Rate Psych/Mental Status: Mental Status NL Hospital Course Was the Problem List Reviewed?: Yes Uneventful course after she was transferred from 4th floor following hip fracture. She rapidly recovered. UTI dx revealing a resistant bacteria requiring change of abx to Cipro. Patient had an uneventful course with therapy and achieved return to baseline function with use of walker. Labs (last 24 hrs) Laboratory Tests 01/01/23 06:05: White Blood Count 4.3, Red Blood Count 2.54L, Hemoglobin 8.7#L, Hematocrit 26L, Mean Corpuscular Volume 100H, Mean Corpuscular Hemoglobin 34, Mean Corpuscular Hemoglobin Concent 34, Red Cell Distribution Width 19.8H, Platelet Count 92L, Mean Platelet Volume 9.7, Immature Granulocyte % (Auto) 1, Neutrophils (%) (Auto) 62, Lymphocytes (%) (Auto) 19, Monocytes (%) (Auto) 14H, Eosinophils (%) (Auto) 5, Basophils (%) (Auto) 0, Neutrophils # (Auto) 2.6, Lymphocytes # (Auto) 0.8L, Monocytes # (Auto) 0.6, Eosinophils # (Auto) 0.2, Basophils # (Auto) 0.0, Immature Granulocyte # (Auto) 0.0, Percent Immature Platelet Fraction 1.9, Sodium Level 139, Potassium Level 4.6, Chloride Level 109H, Carbon Dioxide Level 25, Anion Gap 5, Blood Urea Nitrogen 15, Creatinine 1.74H, Estimat Glomerular Filtration Rate 31, BUN/Creatinine Ratio 9, Glucose Level 97, Calcium Level 8.6, Corrected Calcium 9.6, Total Bilirubin 0.8, Aspartate Amino Transf (AST/SGOT) 10, Alanine Aminotransferase (ALT/SGPT) 6, Alkaline Phosphatase 54, Total Protein 4.2L, Albumin 2.7L 01/04/23 05:30: White Blood Count 5.6, Red Blood Count 2.81L, Hemoglobin 9.7L, Hematocrit 29L, Mean Corpuscular Volume 103H, Mean Corpuscular Hemoglobin 35H, Mean Corpuscular Hemoglobin Concent 33, Red Cell Distribution Width 18.0H, Platelet Count 116L, Mean Platelet Volume 10.6, Immature Granulocyte % (Auto) 0, Neutrophils (%) (Auto) 58, Lymphocytes (%) (Auto) 22, Monocytes (%) (Auto) 16H, Eosinophils (%) (Auto) 3, Basophils (%) (Auto) 0, Neutrophils # (Auto) 3.3, Lymphocytes # (Auto) 1.3, Monocytes # (Auto) 0.9, Eosinophils # (Auto) 0.1, Basophils # (Auto) 0.0, Immature Granulocyte # (Auto) 0.0, Percent Immature Platelet Fraction 2.4, Sodium Level 138, Potassium Level 4.0, Chloride Level 109H, Carbon Dioxide Level 21, Anion Gap 8, Blood Urea Nitrogen 13, Creatinine 1.35H, Estimat Glomerular Filtration Rate 42, BUN/Creatinine Ratio 10, Glucose Level 91, Calcium Level 8.4L, Corrected Calcium 9.3, Total Bilirubin 0.7, Aspartate Amino Transf (AST/SGOT) 9, Alanine Aminotransferase (ALT/SGPT) 6, Alkaline Phosphatase 62, Total Protein 4.7L, Albumin 2.9L Pending Labs Laboratory Tests 01/01/23 06:05: White Blood Count 4.3, Red Blood Count 2.54, Hemoglobin 8.7, Hematocrit 26, Mean Corpuscular Volume 100, Mean Corpuscular Hemoglobin 34, Mean Corpuscular Hemoglobin Concent 34, Red Cell Distribution Width 19.8, Platelet Count 92, Mean Platelet Volume 9.7, Immature Granulocyte % (Auto) 1, Neutrophils (%) (Auto) 62, Lymphocytes (%) (Auto) 19, Monocytes (%) (Auto) 14, Eosinophils (%) (Auto) 5, Basophils (%) (Auto) 0, Neutrophils # (Auto) 2.6, Lymphocytes # (Auto) 0.8, Monocytes # (Auto) 0.6, Eosinophils # (Auto) 0.2, Basophils # (Auto) 0.0, Immature Granulocyte # (Auto) 0.0, Percent Immature Platelet Fraction 1.9, Sodium Level 139, Potassium Level 4.6, Chloride Level 109, Carbon Dioxide Level 25, Anion Gap 5, Blood Urea Nitrogen 15, Creatinine 1.74, Estimat Glomerular Filtration Rate 31, BUN/Creatinine Ratio 9, Glucose Level 97, Calcium Level 8.6, Corrected Calcium 9.6, Total Bilirubin 0.8, Aspartate Amino Transf (AST/SGOT) 10, Alanine Aminotransferase (ALT/SGPT) 6, Alkaline Phosphatase 54, Total Protein 4.2, Albumin 2.7 01/04/23 05:30: White Blood Count 5.6, Red Blood Count 2.81, Hemoglobin 9.7, Hematocrit 29, Mean Corpuscular Volume 103, Mean Corpuscular Hemoglobin 35, Mean Corpuscular Hemoglobin Concent 33, Red Cell Distribution Width 18.0, Platelet Count 116, Mean Platelet Volume 10.6, Immature Granulocyte % (Auto) 0, Neutrophils (%) (Auto) 58, Lymphocytes (%) (Auto) 22, Monocytes (%) (Auto) 16, Eosinophils (%) (Auto) 3, Basophils (%) (Auto) 0, Neutrophils # (Auto) 3.3, Lymphocytes # (Auto) 1.3, Monocytes # (Auto) 0.9, Eosinophils # (Auto) 0.1, Basophils # (Auto) 0.0, Immature Granulocyte # (Auto) 0.0, Percent Immature Platelet Fraction 2.4, Sodium Level 138, Potassium Level 4.0, Chloride Level 109, Carbon Dioxide Level 21, Anion Gap 8, Blood Urea Nitrogen 13, Creatinine 1.35, Estimat Glomerular Filtration Rate 42, BUN/Creatinine Ratio 10, Glucose Level 91, Calcium Level 8.4, Corrected Calcium 9.3, Total Bilirubin 0.7, Aspartate Amino Transf (AST/S GOT) 9, Alanine Aminotransferase (ALT/SGPT) 6, Alkaline Phosphatase 62, Total Protein 4.7, Albumin 2.9 Discharge Home Medications: Active Scripts Active Metoclopramide HCl 10 Mg Tablet 10 Mg PO ACHS Ciprofloxacin HCl 500 Mg Tablet 500 Mg PO Q24H Eliquis (Apixaban) 5 Mg Tablet 5 Mg PO BID 30 Days Reported Morphine Sulfate IR Tablet (Morphine Sulfate) 30 Mg Tablet 30 Mg PO DAILY PRN Darzalex (Daratumumab) 400 Mg/20 Ml (20 Mg/Ml) Vial 1,800 Mg IJ EVERY 28 DAYS Melatonin 5 Mg Tablet 10 Mg PO HS Docusate Sodium 100 Mg Tablet 400 Mg PO DAILY PRN Noble Thyroid (Thyroid,Pork) 15 Mg Tablet 15 Mg PO DAILY Gabapentin 600 Mg Tablet 600 Mg PO HS Calcium + D3 ER Tablet (Calcium Carb & Citrate/Vit D3) 600MG-12.5 Tablet.er 2 Each PO BID ALPRAZolam 0.25 Mg Tablet 0.25 Mg PO TID PRN Ambien (Zolpidem Tartrate) 5 Mg Tablet 5 Mg PO HS PRN 2ND LINE Rosuvastatin Calcium 10 Mg Tablet 10 Mg PO DAILY K-Tab ER (Potassium Chloride) 10 Meq Tablet.er 10 Meq PO HS K-Tab ER (Potassium Chloride) 10 Meq Tablet.er 20 Meq PO DAILY TAKES 2 (10MEQ) TABS Morphine Sulfate ER (Morphine Sulfate) 30 Mg Tablet.er 30 Mg PO Q12H Transderm-Scop (Scopolamine) 1 Mg/3 Day Patch.td72 1 Patch TD EVERY 72 HOURS Ondansetron Odt (Ondansetron) 8 Mg Tab.rapdis 8 Mg PO TID PRN Temazepam 15 Mg Capsule 15 Mg PO HS PRN 1ST LINE Pantoprazole Sodium 40 Mg Tablet.dr 40 Mg PO DAILY Acyclovir 400 Mg Tablet 400 Mg PO BID K-Phos Original (Potassium Phosphate,Monobasic) 500 Mg Tablet.alba 1,000 Mg PO BID TAKES 2 (500MG) TABS Instructions to patient/family Please see electronic discharge instructions given to patient. Diagnosis/Problems Diagnosis/Problems (1) Closed left hip fracture Status: Acute (2) Multiple myeloma Status: Chronic (3) Anemia Status: Chronic Clinical Quality Measures DVT/VTE Risk/Contraindication: Contraindications-Pharm: Other *list below* Other: severe anemia AYAKA HAMM DO Jan 08, 2023 04:36
--- NOTE | 2023-01-08 04:36 | D/C HH Face to Face Order ---
D/C Face to Face Orders Reconcile Patient Problems Problems Reviewed?: Yes Instructions for Patient Via [facility], Patient Instructions/FollowUp: pcp Physician to follow Patient: pcp Discharge Diet for Home: No Restrictions Patient Problems: hip fx Patient Data-Allergies,Ht & Wt Patient Allergies: Coded Allergies: tomato (Verified Allergy, Intermediate, Rash, 01/04/23) Per patient report Sulfa (Sulfonamide Antibiotics) (Verified Allergy, Unknown, hives, 05/24/18) latex (Verified Allergy, Unknown, anaphylaxis, 05/24/18) midazolam (Verified Allergy, Unknown, pt has had xanax and ativan in past, 12/10/22) vancomycin (Verified Allergy, Unknown, hives, 05/24/18) Uncoded Allergies: "SEEDS" (Adverse Reaction, Unknown, 06/18/22) CAN NOT HAVE SEEDS D/T DIVERTICULITIS PER PT Height (Feet): 5 Height (Inches): 1.00 Weight (Pounds): 127 Home Health Need/Face to Face Date of Face to Face: Jan 08, 2023 Clinical Findings: Generalized weakness and fatigue, Instability, Muscle weakness I have seen Pt [id number]: Yes Discharged To: Home Diagnosis/Conditions: hip fx Patient is Homebound due to: Kei fall risk due to instabilty, Muscle weakness Homebound Status Due to the above stated illness, injury or surgical procedure (medical condition or diagnosis) and associated clinical findings, the patient is homebound because of his/her inability to leave home except with aid of a supportive device and/or person AND leaving the home requires a considerable and taxing effort or is medically contraindicated. Pt req the following assistanc: Walker Home Health Nursing Orders Home Health Services Order: Nursing Services, Sanding Machine Operator-Evaluate & Treat, Physical Therapy-Evaluate & Treat Certify Stmt I certify that this patient is under my care and that I, a nurse practitioner or a physician; a advertising assistant working with me, had a face to face encounter that - meets the physician face to face encounter requirements with this patient as dated. AYAKA HAMM DO Jan 08, 2023 04:36
[2023-01-08] MEDS: POTASSIUM CHLORIDE 20 MEQ TABLET PO SCH (06:40)
[2023-01-08] MEDS: METOCLOPRAMIDE 10 MG TABLET PO SCH (06:40)
[2023-01-08] MEDS: D3 PO SCH (07:51)
[2023-01-08] MEDS: CALCIUM PO SCH (07:51)
[2023-01-08] MEDS: MORPHINE 30 MG PO SCH (07:51)
[2023-01-08] MEDS: SENNA W/DOCUSATE TABLET PO SCH (07:52)
[2023-01-08] MEDS: DOCUSATE SODIUM 100 MG CAPSULE PO SCH (07:52)
[2023-01-08] MEDS: ACYCLOVIR 400 MG CAPSULE/TABLET PO SCH (07:52)
[2023-01-08] MEDS: ROSUVASTATIN 10 MG TABLET PO SCH (07:52)
[2023-01-08] MEDS: PANTOPRAZOLE 20 MG TABLET PO SCH (07:52)
[2023-01-08] MEDS: POTASSIUM PHOSPHATE PO SCH (07:54)
[2023-01-08 08:11] VITALS: BP 138/67
--- NOTE | 2023-01-11 15:18 | Therapy Team Discharge Summary ---
Therapy Discharge Summary Discharge Recommendations Date of Discharge Jan 08, 2023 at 10:45 Physical Therapy Patient admitted 01/01 with (L) hip IM nail. At the time of D/C, the patient was (I) with bed mobility, transfers and gait using the 3 WW(distances up to 250'). She was (I) with a curb /c the 3WW and steps with rails. She was able to pick an object of the floor (I). Roll Left to Right (QC): 6 Sit to Lying (QC): 6 Lying to Sitting/Side of Bed(Q: 6 Sit to Stand (QC): 6 Chair/Xey-rj-Kdftt Xfer(QC): 6 Toilet Transfer (QC): 6 Car Transfer (QC): 6 Does the Patient Walk: Yes Mode of Locomotion: Walk Anticipated Mode of Locomotion: Walk Walk 10 feet (QC): 6 Walk 50 ft with 2 Turns(QC): 6 Walk 150 ft (QC): 6 Walking 10ft on uneven surface: 6 Distance: 250' Gait Assistive Device: FWW Does the Pt Use a Wheelchair: No Wheelchair Distance: NA Wheel 50 ft with 2 turns (QC): 9 Wheel 150 ft (QC): 9 Type of Wheelchair: N/A #of Steps: 12 1 Step (curb) (QC): 6 4 Steps (QC): 6 12 Steps (QC): 6 Picking up an Object (QC): 6 Occupational Therapy Decreased UE Strength, Impaired Funct Balance, Impaired Self-Care Skills Eating (QC): 6 (Pt. has demonstrated eating IND.) Oral Hygiene (QC): 6 (Pt. completes grooming/oral hygiene while standing at sink.) Shower/Bathe Self (QC): 6 (Pt. able to bathe all areas while sitting 95% of time on shower transfer bench and stands to clean joanne area and buttocks using HH shower and grabbars.) Upper Body Dressing (QC): 6 (Pt. IND with UB dressing.) Lower Body Dressing (QC): 6 (Pt. IND with LB dressing using 3WW to stabilize. ) On/Off Footwear (QC): 6 (Pt. IND with donning/doffing shoes. ) Toileting Hygiene (QC): 6 (Pt. has demonstrated clothing manipulation using 3WW/grabbars and cleanses all areas by self.) PT Education Department Registrar Goals [facility] Goals PT Education Department Registrar Goals Time Frame: Jan 22, 2023 Roll Left to Right (QC): 6 Sit to Lying (QC): 6 Lying-Sitting on Side/Bed(QC): 6 Sit to Stand (QC): 6 Chair/Vbw-ga-Xcolh Xfer(QC): 6 Toilet/Commode Transfer (QC): 6 Car Transfer (QC): 6 Does the Patient Walk: Yes Walk 10 feet (QC): 6 Walk 10ft-Uneven Surface(QC): 6 Walk 50ft with 2 Turns (QC): 6 Walk 150 ft (QC): 6 Does the Pt use WC or Scooter?: No Wheel 50 feet with 2 turns (QC: 9 Type: N/A Wheel 150 feet: 9 Type: N/A 1 Step (curb) (QC): 6 4 Steps (QC): 6 12 Steps (QC): 9 Picking up an Object (QC): 6 OT Education Department Registrar Goals [facility] Goals Time Frame: Jan 15, 2023 Acute change in mental status: 0 Inattention: 0 Disorganized thinkin Altered level of consciousness: 0 Eating (QC): 6 Oral Hygiene (QC): 6 Toileting Hygiene (QC): 6 Shower/Bathe Self (QC): 6 Upper Body Dressing (QC): 6 Lower Body Dressing (QC): 6 On/Off Footwear (QC): 6 1=Demonstrate adherence to instructed precautions during ADL tasks. 2=Patient will verbalize/demonstrate understanding of assistive devices/modifications for ADL. 3=Patient will improve strength/tolerance for activity to enable patient to perform ADL's. Cleopatra Dunn PT Jan 11, 2023 15:18
--- NOTE | 2023-01-11 15:31 | Therapy Team Discharge Summary ---
Therapy Discharge Summary Discharge Recommendations Date of Discharge Jan 08, 2023 at 10:45 Physical Therapy Roll Left to Right (QC): 6 Sit to Lying (QC): 6 Lying to Sitting/Side of Bed(Q: 6 Sit to Stand (QC): 6 Chair/Rhi-fy-Uqpzs Xfer(QC): 6 Toilet Transfer (QC): 6 Car Transfer (QC): 6 Does the Patient Walk: Yes Mode of Locomotion: Walk Anticipated Mode of Locomotion: Walk Walk 10 feet (QC): 6 Walk 50 ft with 2 Turns(QC): 6 Walk 150 ft (QC): 6 Walking 10ft on uneven surface: 6 Distance: 250' Gait Assistive Device: FWW Does the Pt Use a Wheelchair: No Wheelchair Distance: NA Wheel 50 ft with 2 turns (QC): 9 Wheel 150 ft (QC): 9 Type of Wheelchair: N/A #of Steps: 12 1 Step (curb) (QC): 6 4 Steps (QC): 6 12 Steps (QC): 6 Picking up an Object (QC): 6 Occupational Therapy Pt admitted to [facility] s/p L hip fx. At [facility], pt was independent with ADLS. Upon initial evaluation, pt required set up with eating, oral care and UBD, CGA-SBA with showering and toileting, partial assistance with LBD, and max A footwear. O T tx focused on increasing BUE strength and activity tolerance, and increasing independence with ADLS and functional mobility. Pt made good progress towards goals, attaining IND level with all ADLS. Pt discharged from facility, d/c from OT. Decreased UE Strength, Impaired Funct Balance, Impaired Self-Care Skills Eating (QC): 6 (Pt. has demonstrated eating IND.) Oral Hygiene (QC): 6 (Pt. completes grooming/oral hygiene while standing at sink.) Shower/Bathe Self (QC): 6 (Pt. able to bathe all areas while sitting 95% of time on shower transfer bench and stands to clean joanne area and buttocks using HH shower and grabbars.) Upper Body Dressing (QC): 6 (Pt. IND with UB dressing.) Lower Body Dressing (QC): 6 (Pt. IND with LB dressing using 3WW to stabilize. ) On/Off Footwear (QC): 6 (Pt. IND with donning/doffing shoes. ) Toileting Hygiene (QC): 6 (Pt. has demonstrated clothing manipulation using 3WW/grabbars and cleanses all areas by self.) PT Senior Fund Accountant Goals Custodial Goals PT Custodial Goals Time Frame: Jan 22, 2023 Roll Left to Right (QC): 6 Sit to Lying (QC): 6 Lying-Sitting on Side/Bed(QC): 6 Sit to Stand (QC): 6 Chair/Uwl-si-Lxbiw Xfer(QC): 6 Toilet/Commode Transfer (QC): 6 Car Transfer (QC): 6 Does the Patient Walk: Yes Walk 10 feet (QC): 6 Walk 10ft-Uneven Surface(QC): 6 Walk 50ft with 2 Turns (QC): 6 Walk 150 ft (QC): 6 Does the Pt use WC or Scooter?: No Wheel 50 feet with 2 turns (QC: 9 Type: N/A Wheel 150 feet: 9 Type: N/A 1 Step (curb) (QC): 6 4 Steps (QC): 6 12 Steps (QC): 9 Picking up an Object (QC): 6 OT Senior Fund Accountant Goals Senior Fund Accountant Goals Time Frame: Jan 15, 2023 Acute change in mental status: 0 Inattention: 0 Disorganized thinkin Altered level of consciousness: 0 Eating (QC): 6 Oral Hygiene (QC): 6 Toileting Hygiene (QC): 6 Shower/Bathe Self (QC): 6 Upper Body Dressing (QC): 6 Lower Body Dressing (QC): 6 On/Off Footwear (QC): 6 1=Demonstrate adherence to instructed precautions during ADL tasks. 2=Patient will verbalize/demonstrate understanding of assistive devices/modifications for ADL. 3=Patient will improve strength/tolerance for activity to enable patient to perform ADL's. YUSEF QUINONES OT Jan 11, 2023 15:31
== END 2023-01-08 10:45 | disposition home health service (06) | DRG 560 ==
PROVIDERS: ADMIT Internal Medicine; ATTEND Internal Medicine
DX: S72.145D Nondisplaced intertrochanteric fracture of left femur, subsequent encounter for closed fracture with routine healing (principal); C90.00 Multiple myeloma not having achieved remission; N39.0 Urinary tract infection, site not specified; D62 Acute posthemorrhagic anemia; Z16.39 Resistance to other specified antimicrobial drug; I10 Essential (primary) hypertension; E03.9 Hypothyroidism, unspecified; B96.89 Other specified bacterial agents as the cause of diseases classified elsewhere; Z87.891 Personal history of nicotine dependence; Z88.2 Allergy status to sulfonamides; Z91.09 Other allergy status, other than to drugs and biological substances; Z79.01 Long term (current) use of anticoagulants; Z79.899 Other long term (current) drug therapy
CPT/HCPCS: 36415; 80053; 85025; 94664; 94760